=== PATIENT | male | born 1990 | race African-American/Black ===

== ENCOUNTER 2016-07-03 03:41 | Emergency (ER) | payer OTHER ==
[2016-07-03 04:01] VITALS: TEMP 98.5
--- NOTE | 2016-07-03 04:12 | ED ---
General Adult HPI - General Chief complaint: Nausea/Vomiting/Diarrhea Stated complaint: nausea,vomitting, abd pain Time Seen by Provider: 07/03/16 03:45 Source: patient, RN notes reviewed, old records reviewed Mode of arrival: wheelchair Limitations: no limitations - History of Present Illness Initial comments: This is a 25-year-old male here for evaluation of nausea and vomiting. Patient was a year with severe nausea vomiting and pain. Diffuse body pain. Not feeling well. Patient states he can't keep anything down at home, is status post recent hospital admission for similar symptoms. Patient has no known fevers. Is taking medication as prescribed. Patient states he does get pain medication while in hospital and is usually feeling well, when he goes home he is not on any pain medication and his symptoms seemed to get worse the father out from his hospitalization he becomes. Patient otherwise denies any specific symptoms, blood sugars been under well control, decreased appetite and hasn't kept anything down since yesterday. - Related Data Home Medications Medication Instructions Recorded Confirmed Insulin Aspart [NovoLOG] 8 unit SQ AC-TID 02/08/14 07/03/16 Insulin Glargine [Lantus] 42 unit SQ HS 06/06/15 07/03/16 buPROPion SR [Wellbutrin SR] 150 mg PO BID 06/18/15 07/03/16 Pantoprazole [Protonix] 40 mg PO AC-BRKFST 10/26/15 07/03/16 Losartan [Cozaar] 50 mg PO DAILY 05/04/16 07/03/16 Ondansetron Odt [Zofran ODT] 4 mg PO Q12HR PRN 05/04/16 07/03/16 amLODIPine [Norvasc] 5 mg PO DAILY 05/04/16 07/03/16 Insulin Aspart [NovoLOG] See Protocol SQ AC-TID PRN 05/28/16 07/03/16 Mag Hydrox/Al Hydrox/Simeth 30 ml PO DAILY PRN 06/28/16 07/03/16 [Maalox] Previous Rx's Medication Instructions Recorded Metoprolol Tartrate [Lopressor] 100 mg PO BID #60 tab 07/16/15 Calcium Carbonate [Tums] 1,000 mg PO TID PRN #0 chew 05/07/16 Hydrocodone/Acetaminophen [[place] 1 tab PO Q6HR PRN #20 tab 06/29/16 5-325] Allergies Allergy/AdvReac Type Severity Reaction Status Date / Time No Known Allergies Allergy Verified 06/03/16 00:53 Review of Systems ROS Statement: Those systems with pertinent positive or pertinent negative responses have been documented in the HPI. ROS Other: All systems not noted in ROS Statement are negative. Past Medical History Past Medical History: Diabetes Mellitus, GERD/Reflux, Hypertension, Renal Disease Additional Past Medical History / Comment(s): IDDM, GASTROPARESIS, gastritis, esophagitis, DKA episodes, hiatal hernia, as child had seizure r/t high fever, acute pancreatits(idiopathic) in july 2015, chronic kidney disease stage III , hyperkalemia, L leg neuropathy, unsure if he had angina or if chest pain is gastric, migraines. History of Any Multi-Drug Resistant Organisms: MRSA Date of last positivie culture/infection: MDRO Source:: CHIN/ Rt leg Past Surgical History: Cholecystectomy, Orthopedic Surgery, Tonsillectomy Additional Past Surgical History / Comment(s): LEFT ELBOW pinned, egd's w/ bx's last done 05-30-16. Past Anesthesia/Blood Transfusion Reactions: No Reported Reaction Past Psychological History: ADD/ADHD, Anxiety, Depression Additional Psychological History / Comment(s): Pt resides with his mother. He is independent. Smoking Status: Former smoker Past Alcohol Use History: None Reported Additional Past Alcohol Use History / Comment(s): Pt states he started smoking in 2006 and quit in 2011 Past Drug Use History: Marijuana Additional Drug Use History / Comment(s): Pt states he doesn't smoke cigarettees but has a "joint or two a week" - Past Family History Mother Family Medical History: Diabetes Mellitus Additional Family Medical History / Comment(s): heart problems-(pt not sure what they were) Father Family Medical History: Diabetes Mellitus General Exam Limitations: no limitations General appearance: alert, in no apparent distress, anxious Head exam: Present: atraumatic, normocephalic, normal inspection Eye exam: Present: normal appearance, PERRL, EOMI. Absent: scleral icterus, conjunctival injection, periorbital swelling ENT exam: Present: normal exam, mucous membranes moist Neck exam: Present: normal inspection. Absent: tenderness, meningismus, lymphadenopathy Respiratory exam: Present: normal lung sounds bilaterally. Absent: respiratory distress, wheezes, rales, rhonchi, stridor Cardiovascular Exam: Present: regular rate, normal rhythm, normal heart sounds. Absent: systolic murmur, diastolic murmur, rubs, gallop, clicks GI/Abdominal exam: Present: soft, normal bowel sounds. Absent: distended, tenderness, guarding, rebound, rigid Extremities exam: Present: normal inspection, full ROM, normal capillary refill. Absent: tenderness, pedal edema, joint swelling, calf tenderness Back exam: Present: normal inspection Neurological exam: Present: alert, oriented X3, CN II-XII intact Psychiatric exam: Present: normal affect, normal mood Skin exam: Present: warm, dry, intact, normal color. Absent: rash Course Vital Signs 07/03/16 03:57 Temperature 98.5 F Pulse Rate 106 H Respiratory 20 Rate Blood Pressure 183/94 O2 Sat by Pulse 100 Oximetry - Reevaluation(s) Reevaluation #1: 07/03/16 04:51 Patient's symptoms are much improved pain control, antiemetics emetics Reevaluation #2: 07/03/16 04:51 A consult with at length. 15 minutes regarding need for taking care of his issues at home. Medical Decision Making - Medical Decision Making 25 year with intractable nausea vomiting, aspect of opiate pain relief pain issues, withdrawal, 7 vomiting syndrome as well as gastroparesis. Patient will be discharged with appropriate pain medication to follow up as directed - Lab Data Lab Results 07/03/16 Range/Units 04:33 POC Glucose (mg/dL) 87 (75-99) mg/dL POC Glu Research Microbiologist ID [email or web address] [email or web address] Disposition Clinical Impression: Nausea and vomiting, Nausea and vomiting in adult, Opioid withdrawal Disposition: HOME SELF-CARE Condition: Good Instructions: Acute Nausea and Vomiting (ED) Referrals: Myron Bailey DO [Primary Care Provider] - 1-2 days
[2016-07-03 04:36] LABS: Glucose,Whole Blood 87 mg/dL (75-99)
[2016-07-03] MEDS ORDERED: TRIMETHOBENZAMIDE 100 MG/ML 2 ML VIAL IM STA (04:37)
[2016-07-03] MEDS ORDERED: ONDANSETRON ODT 4 MG TAB PO STA (04:37)
[2016-07-03] MEDS ORDERED: HYDROmorphone 2 MG/ML 1 ML SYRINGE IM STA (04:37)
[2016-07-03] MEDS ORDERED: DIAZEPAM 5 MG TAB PO STA (04:38)
[2016-07-03] MEDS ORDERED: diphenhydrAMINE ELIXIR 25 MG/10 ML CUP PO STA (04:38)
[2016-07-03] MEDS ORDERED: METOCLOPRAMIDE 10 MG TAB PO STA (05:15)
[2016-07-03 05:40] VITALS: PULSE 95; RESP 16
[2016-07-03 05:48] VITALS: BP 156/76
== END 2016-07-03 06:05 | disposition home or self-care (01) ==
LOC: EC 03:41
DX: R11.2 Nausea with vomiting, unspecified (principal); F11.23 Opioid dependence with withdrawal; E11.43 Type 2 diabetes mellitus with diabetic autonomic (poly)neuropathy; E11.22 Type 2 diabetes mellitus with diabetic chronic kidney disease; K31.84 Gastroparesis; K21.9 Gastro-esophageal reflux disease without esophagitis; I12.9 Hypertensive chronic kidney disease with stage 1 through stage 4 chronic kidney disease, or unspecified chronic kidney disease; N18.3 Chronic kidney disease, stage 3 (moderate); E11.40 Type 2 diabetes mellitus with diabetic neuropathy, unspecified; F32.9 Major depressive disorder, single episode, unspecified; Z79.4 Long term (current) use of insulin; Z87.891 Personal history of nicotine dependence; Z79.899 Other long term (current) drug therapy; R52 Pain, unspecified; R19.7 Diarrhea, unspecified
CPT/HCPCS: 96372 ×2; 99284; 36415; J1170; J3250

== ENCOUNTER 2016-07-04 00:48 | Emergency (ER) | payer OTHER ==
[2016-07-04 00:57] VITALS: RESP 20
--- NOTE | 2016-07-04 01:14 | ED ---
Abdominal Pain HPI - General Chief Complaint: Abdominal Pain Stated Complaint: N/V/D/Back/Abdominal Pain Time Seen by Provider: 07/04/16 01:09 Source: patient, RN notes reviewed Mode of arrival: wheelchair Limitations: no limitations - History of Present Illness Initial Comments: Patient is a 25-year-old visiting to the with similar symptoms including abdominal, lower back pain for the past 2 days. Patient was seen in the emergency room yesterday for the exact same symptoms. Patient was given a prescription for Reglan and Accord he states that he vomited. Patient reports that he has also been admitted recently for similar symptoms, reports that his pain gets better with opiate medication. Patient reports that his blood sugars have remained remaining well. He states he's been trying to remain hydrated. He's had normal urination normal bowel movements. - Related Data Home Medications Medication Instructions Recorded Confirmed Insulin Aspart [NovoLOG] 8 unit SQ AC-TID 02/08/14 07/04/16 Insulin Glargine [Lantus] 42 unit SQ HS 06/06/15 07/04/16 buPROPion SR [Wellbutrin SR] 150 mg PO BID 06/18/15 07/04/16 Pantoprazole [Protonix] 40 mg PO AC-BRKFST 10/26/15 07/04/16 Losartan [Cozaar] 50 mg PO DAILY 05/04/16 07/04/16 Ondansetron Odt [Zofran ODT] 4 mg PO Q12HR PRN 05/04/16 07/04/16 amLODIPine [Norvasc] 5 mg PO DAILY 05/04/16 07/04/16 Insulin Aspart [NovoLOG] See Protocol SQ AC-TID PRN 05/28/16 07/04/16 Mag Hydrox/Al Hydrox/Simeth 30 ml PO DAILY PRN 06/28/16 07/04/16 [Maalox] Previous Rx's Medication Instructions Recorded Metoprolol Tartrate [Lopressor] 100 mg PO BID #60 tab 07/16/15 Calcium Carbonate [Tums] 1,000 mg PO TID PRN #0 chew 05/07/16 Hydrocodone/Acetaminophen [[place] 1 tab PO Q6HR PRN #20 tab 06/29/16 5-325] Hydrocodone/Acetaminophen [[place] 1 tab PO Q4H PRN #30 tab 07/03/16 10-325] Metoclopramide HCl [Reglan] 5 mg PO BID #30 tablet 07/03/16 Allergies Allergy/AdvReac Type Severity Reaction Status Date / Time No Known Allergies Allergy Verified 07/04/16 00:57 Review of Systems ROS Statement: Those systems with pertinent positive or pertinent negative responses have been documented in the HPI. ROS Other: All systems not noted in ROS Statement are negative. Past Medical History Past Medical History: Diabetes Mellitus, GERD/Reflux, Hypertension, Renal Disease Additional Past Medical History / Comment(s): IDDM, GASTROPARESIS, gastritis, esophagitis, DKA episodes, hiatal hernia, as child had seizure r/t high fever, acute pancreatits(idiopathic) in july 2015, chronic kidney disease stage III , hyperkalemia, L leg neuropathy, unsure if he had angina or if chest pain is gastric, migraines. History of Any Multi-Drug Resistant Organisms: MRSA Date of last positivie culture/infection: MDRO Source:: CHIN/ Rt leg Past Surgical History: Cholecystectomy, Orthopedic Surgery, Tonsillectomy Additional Past Surgical History / Comment(s): LEFT ELBOW pinned, egd's w/ bx's last done 05-30-16. Past Anesthesia/Blood Transfusion Reactions: No Reported Reaction Past Psychological History: ADD/ADHD, Anxiety, Depression Additional Psychological History / Comment(s): Pt resides with his mother. He is independent. Smoking Status: Former smoker Past Alcohol Use History: None Reported Additional Past Alcohol Use History / Comment(s): Pt states he started smoking in 2006 and quit in 2011 Past Drug Use History: Marijuana Additional Drug Use History / Comment(s): Pt states he doesn't smoke cigarettees but has a "joint or two a week" - Past Family History Mother Family Medical History: Diabetes Mellitus Additional Family Medical History / Comment(s): heart problems-(pt not sure what they were) Father Family Medical History: Diabetes Mellitus General Exam - General Exam Comments Initial Comments: Patient is a obese 25-year-old male. He does not appear to be in any acute distress at this time. Limitations: no limitations General appearance: alert, in no apparent distress Head exam: Present: atraumatic, normocephalic, normal inspection Eye exam: Present: normal appearance, PERRL, EOMI. Absent: scleral icterus, conjunctival injection, periorbital swelling ENT exam: Present: normal exam, mucous membranes moist Neck exam: Present: normal inspection. Absent: tenderness, meningismus, lymphadenopathy Respiratory exam: Present: normal lung sounds bilaterally. Absent: respiratory distress, wheezes, rales, rhonchi, stridor Cardiovascular Exam: Present: regular rate, normal rhythm, normal heart sounds. Absent: systolic murmur, diastolic murmur, rubs, gallop, clicks GI/Abdominal exam: Present: soft, normal bowel sounds. Absent: distended, tenderness, guarding, rebound, rigid Extremities exam: Present: normal inspection, full ROM, normal capillary refill. Absent: tenderness, pedal edema, joint swelling, calf tenderness Back exam: Present: normal inspection Neurological exam: Present: alert, oriented X3, CN II-XII intact Psychiatric exam: Present: normal affect, normal mood Skin exam: Present: warm, dry, intact, normal color. Absent: rash Course Vital Signs 07/04/16 00:55 Temperature 98.4 F Pulse Rate 104 H Respiratory 20 Rate Blood Pressure 148/91 O2 Sat by Pulse 97 Oximetry Medical Decision Making - Medical Decision Making Patient reports that he does not want to be admitted at this time. Patient plans to go home and take at home pain medication and nausea medication. - Lab Data Result diagrams: 07/04/16 00:20 07/04/16 00:20 Lab Results 07/04/16 07/04/16 07/04/16 Range/Units 00:20 00:20 00:20 WBC 7.5 (3.8-10.6) k/uL RBC 4.14 L (4.30-5.90) m/uL Hgb 11.4 L (13.0-17.5) gm/dL Hct 36.1 L (39.0-53.0) % MCV 87.1 (80.0-100.0) fL MCH 27.5 (25.0-35.0) pg MCHC 31.6 (31.0-37.0) g/dL RDW 13.0 (11.5-15.5) % Plt Count 246 (150-450) k/uL Neutrophils % 68 % Lymphocytes % 21 % Monocytes % 9 % Eosinophils % 1 % Basophils % 1 % Neutrophils # 5.1 (1.3-7.7) k/uL Lymphocytes # 1.5 (1.0-4.8) k/uL Monocytes # 0.6 (0-1.0) k/uL Eosinophils # 0.1 (0-0.7) k/uL Basophils # 0.0 (0-0.2) k/uL Sodium 136 L (137-145) mmol/L Potassium 3.2 L (3.5-5.1) mmol/L Chloride 90 L (98-107) mmol/L Carbon Dioxide 38 H (22-30) mmol/L Anion Gap 8 mmol/L BUN 23 H (9-20) mg/dL Creatinine 2.60 H (0.66-1.25) mg/dL Est GFR (MDRD) Af Amer 37 (>60 ml/min/1.73 sqM) Est GFR (MDRD) Non-Af 30 (>60 ml/min/1.73 sqM) Glucose 252 H (74-99) mg/dL Calcium 7.9 L (8.4-10.2) mg/dL Total Bilirubin 0.9 (0.2-1.3) mg/dL AST 45 (17-59) U/L ALT 48 (21-72) U/L Alkaline Phosphatase 122 (38-126) U/L Total Protein 5.4 L (6.3-8.2) g/dL Albumin 2.7 L (3.5-5.0) g/dL Amylase 97 (30-110) U/L Lipase 215 (23-300) U/L Urine Color Urine Appearance (Clear) Urine pH (5.0-8.0) Ur Specific [place] (1.001-1.035) Urine Protein (Negative) Urine Glucose (UA) (Negative) Urine Ketones (Negative) Urine Blood (Negative) Urine Nitrate (Negative) Urine Bilirubin (Negative) Urine Urobilinogen (<2.0) mg/dL Ur Leukocyte Esterase (Negative) Urine RBC (0-5) /hpf Urine WBC (0-5) /hpf Ur Squamous Epith Cells (0-4) /hpf Urine Bacteria (None) /hpf Cellular Casts (0) /lpf Hyaline Casts (0-2) /lpf Granular Casts (0) /lpf Urine Mucus (None) /hpf Acetone, Qual Negative (Negative) 01/04/17 Range/Units 02:35 WBC (3.8-10.6) k/uL RBC (4.30-5.90) m/uL Hgb (13.0-17.5) gm/dL Hct (39.0-53.0) % MCV (80.0-100.0) fL MCH (25.0-35.0) pg MCHC (31.0-37.0) g/dL RDW (11.5-15.5) % Plt Count (150-450) k/uL Neutrophils % % Lymphocytes % % Monocytes % % Eosinophils % % Basophils % % Neutrophils # (1.3-7.7) k/uL Lymphocytes # (1.0-4.8) k/uL Monocytes # (0-1.0) k/uL Eosinophils # (0-0.7) k/uL Basophils # (0-0.2) k/uL Sodium (137-145) mmol/L Potassium (3.5-5.1) mmol/L Chloride (98-107) mmol/L Carbon Dioxide (22-30) mmol/L Anion Gap mmol/L BUN (9-20) mg/dL Creatinine (0.66-1.25) mg/dL Est GFR (MDRD) Af Amer (>60 ml/min/1.73 sqM) Est GFR (MDRD) Non-Af (>60 ml/min/1.73 sqM) Glucose (74-99) mg/dL Calcium (8.4-10.2) mg/dL Total Bilirubin (0.2-1.3) mg/dL AST (17-59) U/L ALT (21-72) U/L Alkaline Phosphatase (38-126) U/L Total Protein (6.3-8.2) g/dL Albumin (3.5-5.0) g/dL Amylase (30-110) U/L Lipase (23-300) U/L Urine Color Light Yellow Urine Appearance Cloudy (Clear) Urine pH 8.5 H (5.0-8.0) Ur Specific [place] 1.009 (1.001-1.035) Urine Protein 4+ H (Negative) Urine Glucose (UA) 3+ H (Negative) Urine Ketones Negative (Negative) Urine Blood Trace H (Negative) Urine Nitrate Negative (Negative) Urine Bilirubin Negative (Negative) Urine Urobilinogen <2.0 (<2.0) mg/dL Ur Leukocyte Esterase Trace H (Negative) Urine RBC 6 H (0-5) /hpf Urine WBC 27 H (0-5) /hpf Ur Squamous Epith Cells 2 (0-4) /hpf Urine Bacteria Rare H (None) /hpf Cellular Casts 1 (0) /lpf Hyaline Casts 8 H (0-2) /lpf Granular Casts 1 (0) /lpf Urine Mucus Rare H (None) /hpf Acetone, Qual (Negative) Disposition Clinical Impression: Abdominal pain, Dehydration Disposition: HOME SELF-CARE Condition: Good Instructions: Abdominal Pain (ED) Additional Instructions: instructed to follow-up with primary care provider. Return to the [facility] if any alarming signs or symptoms occur. Take at home pain medication and nausea medication. Time of Disposition: 03:04
[2016-07-04] MEDS ORDERED: KETOROLAC 30 MG/ML 1 ML VIAL IVP STA (01:22)
[2016-07-04] MEDS ORDERED: ONDANSETRON 4 MG/2 ML VIAL IVP STA (01:22)
[2016-07-04] MEDS ORDERED: SODIUM CHLORIDE 0.9% 1,000 ML IV STA (01:22)
[2016-07-04 02:01] LABS: Basophils % (A) 1 %; CH 28.4; CHCM 32.8; Eosinophils # (A) 0.1 k/uL (0-0.7); Eosinophils % (A) 1 %; HCT 36.1 % (39.0-53.0); HDW 2.31; HGB 11.4 gm/dL (13.0-17.5); Luc # (Auto) 0.11; Luc % (Auto) 2; Lymphocytes # (A) 1.5 k/uL (1.0-4.8); Lymphocytes % (A) 21 %; MCH 27.5 pg (25.0-35.0); MCHC 31.6 g/dL (31.0-37.0); MCV 87.1 fL (80.0-100.0); Monocytes # (A) 0.6 k/uL (0-1.0); Monocytes % (A) 9 %; Neutrophils # (A) 5.1 k/uL (1.3-7.7); Neutrophils % (A) 68 %; RBC 4.14 m/uL (4.30-5.90); WBC 7.5 k/uL (3.8-10.6); WBC (Perox) 7.69
[2016-07-04 02:16] LABS: Potassium 3.2 mmol/L (3.5-5.1); Total Protein 5.4 g/dL (6.3-8.2)
[2016-07-04 02:19] LABS: Calcium 7.9 mg/dL (8.4-10.2); Total Bilirubin 0.9 mg/dL (0.2-1.3)
[2016-07-04 02:53] LABS: Appearance,Urine Cloudy (Clear); Bacteria,Urine Rare /hpf; Bilirubin,Urine Negative (Negative); Glucose,Urine (UA) 3+ (Negative); Granular Casts,Urine 1 /lpf (0); Ketones,Urine Negative (Negative); Leukocyte Esterase,Urine Trace (Negative); Mucus,Urine Rare /hpf; Nitrite,Urine Negative (Negative); PH, Urine 8.5 (5.0-8.0); Particle Count 4475; Protein,Urine 4+ (Negative); RBC,Urine 6 /hpf (0-5); Specific Gravity,Urine 1.009 (1.001-1.035); Squamous Epithelial Cell,Urine 2 /hpf (0-4); UA Billing (MACRO vs. MICRO) MICRO; Urobilinogen,Urine <2.0 mg/dL (<2.0); WBC,Urine 27 /hpf (0-5)
[2016-07-04] MEDS ORDERED: POTASSIUM CHLORIDE ER 20 MEQ TAB.ER PO STA (03:01)
[2016-07-04] MEDS ORDERED: INSULIN REGULAR 100 UNIT/ML VIAL SQ ONE (03:02)
--- NOTE | 2016-07-04 03:11 | XR ---
EXAMINATION TYPE: XR KUB DATE OF EXAM: 07/04/2016 2:01 AM CLINICAL HISTORY: Nausea vomiting and diarrhea and abdominal pain TECHNIQUE: Single supine KUB image of the abdomen is obtained. COMPARISON: June 28, 2016 FINDINGS: Mild gaseous distention of small bowel loops is noted with few air-fluid levels with sugges tion of mild ileus. No significant bowel obstruction is noted. There is no visceromegaly, pneumoperit oneum, or abnormal calcification appreciated. The lung bases are clear and the osseous structures a re intact. Cholecystectomy clips are noted in the right upper abdomen. IMPRESSION: Suggestion of mild ileus or enteritis changes. No significant bowel obstruction is noted. There is moderate improvement since previous study.
[2016-07-04 03:21] VITALS: BP 178/90; PULSE 100; TEMP 97.8
== END 2016-07-04 03:19 | disposition home or self-care (01) ==
LOC: EC 00:48
DX: R10.9 Unspecified abdominal pain (principal); E86.0 Dehydration; K21.9 Gastro-esophageal reflux disease without esophagitis; I10 Essential (primary) hypertension; E11.9 Type 2 diabetes mellitus without complications; E87.5 Hyperkalemia; F32.9 Major depressive disorder, single episode, unspecified; Z87.891 Personal history of nicotine dependence; Z79.899 Other long term (current) drug therapy; Z79.4 Long term (current) use of insulin
CPT/HCPCS: 99284 ×2; 96374 ×2; 96375 ×2; 96361 ×2; 36415; 80053; 82150; 82009; 83690; 85025; 81001; 87491; 87591; 87086; 74000; J1200; J2765; J2405; J1885; J1170

== ENCOUNTER 2016-07-04 08:19 | Emergency (ER) | payer OTHER ==
[2016-07-04 08:27] VITALS: RESP 18
[2016-07-04] MEDS ORDERED: METOCLOPRAMIDE 5 MG/ML 2 ML VIAL IVP STA (08:33)
[2016-07-04] MEDS ORDERED: HYDROmorphone 1 MG/ML 1 ML SYRINGE IVP STA (08:33)
[2016-07-04] MEDS ORDERED: diphenhydrAMINE 50 MG/ML 1 ML VIAL IVP STA (08:33)
[2016-07-04] MEDS ORDERED: SODIUM CHLORIDE 0.9% 1,000 ML IV STA (08:33)
[2016-07-04] MEDS ORDERED: LABETALOL SYRINGE 5 MG/ML IVP STA (08:35)
[2016-07-04 09:12] LABS: Basophils % (A) 0 %; CHCM 32.5; Eosinophils # (A) 0.1 k/uL (0-0.7); Eosinophils % (A) 1 %; HCT 36.5 % (39.0-53.0); HDW 2.37; HGB 11.8 gm/dL (13.0-17.5); Luc # (Auto) 0.17; Luc % (Auto) 2; Lymphocytes % (A) 25 %; MCH 27.9 pg (25.0-35.0); MCHC 32.2 g/dL (31.0-37.0); MCV 86.4 fL (80.0-100.0); Monocytes # (A) 0.7 k/uL (0-1.0); Monocytes % (A) 9 %; Neutrophils % (A) 62 %; RBC 4.22 m/uL (4.30-5.90); RDW 12.7 % (11.5-15.5); WBC 8.1 k/uL (3.8-10.6); WBC (Perox) 8.56
[2016-07-04 09:30] LABS: ALT 52 U/L (21-72); AST 51 U/L (17-59); Alkaline Phosphatase 118 U/L (38-126); Amylase 91 U/L (30-110); Anion Gap 11 mmol/L; Blood Urea Nitrogen 23 mg/dL (9-20); Calcium 7.7 mg/dL (8.4-10.2); Carbon Dioxide 32 mmol/L (22-30); Chloride 95 mmol/L (98-107); Glucose 143 mg/dL (74-99); Non-African American GFR(MDRD) 33 (>60 ml/min/1.73 sqM); Sodium 138 mmol/L (137-145)
[2016-07-04 09:32] LABS: Potassium 3.3 mmol/L (3.5-5.1)
--- NOTE | 2016-07-04 10:08 | ED ---
Abdominal Pain HPI - General Chief Complaint: Abdominal Pain Stated Complaint: Abd pain/back pain Time Seen by Provider: 07/04/16 08:31 Source: patient, RN notes reviewed Mode of arrival: ambulatory Limitations: no limitations - History of Present Illness Initial Comments: 25-year-old male presents emergency department for abdominal pain. Patient has chronic abdominal pain, gastroparesis. Patient was seen here last night states that symptoms get worse when he went home. Patient states she had a few episodes of vomiting. Patient states is his typical discomfort and vomiting that he has. Patient denies fever, chills. Patient states his hasn't diffuse abdominal pain and back pain. - Related Data Home Medications Medication Instructions Recorded Confirmed Insulin Aspart [NovoLOG] 8 unit SQ AC-TID 02/08/14 07/04/16 Insulin Glargine [Lantus] 42 unit SQ HS 06/06/15 07/04/16 buPROPion SR [Wellbutrin SR] 150 mg PO BID 06/18/15 07/04/16 Pantoprazole [Protonix] 40 mg PO AC-BRKFST 10/26/15 07/04/16 Losartan [Cozaar] 50 mg PO DAILY 05/04/16 07/04/16 Ondansetron Odt [Zofran ODT] 4 mg PO Q12HR PRN 05/04/16 07/04/16 amLODIPine [Norvasc] 5 mg PO DAILY 05/04/16 07/04/16 Insulin Aspart [NovoLOG] See Protocol SQ AC-TID PRN 05/28/16 07/04/16 Mag Hydrox/Al Hydrox/Simeth 30 ml PO DAILY PRN 06/28/16 07/04/16 [Maalox] Previous Rx's Medication Instructions Recorded Metoprolol Tartrate [Lopressor] 100 mg PO BID #60 tab 07/16/15 Calcium Carbonate [Tums] 1,000 mg PO TID PRN #0 chew 05/07/16 Hydrocodone/Acetaminophen [[place] 1 tab PO Q4H PRN #30 tab 07/03/16 10-325] Metoclopramide HCl [Reglan] 5 mg PO BID #30 tablet 07/03/16 Allergies Allergy/AdvReac Type Severity Reaction Status Date / Time No Known Allergies Allergy Verified 07/04/16 09:03 Review of Systems ROS Statement: Those systems with pertinent positive or pertinent negative responses have been documented in the HPI. ROS Other: All systems not noted in ROS Statement are negative. Past Medical History Past Medical History: Diabetes Mellitus, GERD/Reflux, Hypertension, Renal Disease Additional Past Medical History / Comment(s): IDDM, GASTROPARESIS, gastritis, esophagitis, DKA episodes, hiatal hernia, as child had seizure r/t high fever, acute pancreatits(idiopathic) in july 2015, chronic kidney disease stage III , hyperkalemia, L leg neuropathy, unsure if he had angina or if chest pain is gastric, migraines. History of Any Multi-Drug Resistant Organisms: MRSA Date of last positivie culture/infection: MDRO Source:: CHIN/ Rt leg Past Surgical History: Cholecystectomy, Orthopedic Surgery, Tonsillectomy Additional Past Surgical History / Comment(s): LEFT ELBOW pinned, egd's w/ bx's last done 05-30-16. Past Anesthesia/Blood Transfusion Reactions: No Reported Reaction Past Psychological History: ADD/ADHD, Anxiety, Depression Additional Psychological History / Comment(s): Pt resides with his mother. He is independent. Smoking Status: Former smoker Past Alcohol Use History: None Reported Additional Past Alcohol Use History / Comment(s): Pt states he started smoking in 2006 and quit in 2011 Past Drug Use History: Marijuana Additional Drug Use History / Comment(s): Pt states he doesn't smoke cigarettees but has a "joint or two a week" - Past Family History Mother Family Medical History: Diabetes Mellitus Additional Family Medical History / Comment(s): heart problems-(pt not sure what they were) Father Family Medical History: Diabetes Mellitus General Exam Limitations: no limitations General appearance: alert, in no apparent distress Head exam: Present: atraumatic, normocephalic, normal inspection Neck exam: Present: normal inspection. Absent: tenderness, meningismus, lymphadenopathy Respiratory exam: Present: normal lung sounds bilaterally. Absent: respiratory distress, wheezes, rales, rhonchi, stridor Cardiovascular Exam: Present: normal rhythm, tachycardia, normal heart sounds. Absent: systolic murmur, diastolic murmur, rubs, gallop, clicks GI/Abdominal exam: Present: soft, tenderness (Moderate diffuse), normal bowel sounds. Absent: distended, guarding, rebound, rigid Back exam: Absent: CVA tenderness (R), CVA tenderness (L) Skin exam: Present: warm, dry, intact, normal color. Absent: rash Course Vital Signs 07/04/16 07/04/16 07/04/16 08:24 09:06 10:03 Temperature 98.3 F Pulse Rate 111 H Respiratory 18 Rate Blood Pressure 221/112 206/109 178/85 O2 Sat by Pulse 97 97 Oximetry Medical Decision Making - Medical Decision Making 25-year-old male present emergency department for nausea vomiting no pain. Patient's lab work is improved from previous lab work. Patient was informed that his potassium was low but he declined potassium. Patient we given additional antinausea medication prior discharge. Return parameters were discussed. - Lab Data Result diagrams: 07/04/16 08:50 07/04/16 08:50 Lab Results 07/04/16 07/04/16 Range/Units 08:50 08:50 WBC 8.1 (3.8-10.6) k/uL RBC 4.22 L (4.30-5.90) m/uL Hgb 11.8 L (13.0-17.5) gm/dL Hct 36.5 L (39.0-53.0) % MCV 86.4 (80.0-100.0) fL MCH 27.9 (25.0-35.0) pg MCHC 32.2 (31.0-37.0) g/dL RDW 12.7 (11.5-15.5) % Plt Count 253 (150-450) k/uL Neutrophils % 62 % Lymphocytes % 25 % Monocytes % 9 % Eosinophils % 1 % Basophils % 0 % Neutrophils # 5.0 (1.3-7.7) k/uL Lymphocytes # 2.0 (1.0-4.8) k/uL Monocytes # 0.7 (0-1.0) k/uL Eosinophils # 0.1 (0-0.7) k/uL Basophils # 0.0 (0-0.2) k/uL Sodium 138 (137-145) mmol/L Potassium 3.3 L (3.5-5.1) mmol/L Chloride 95 L (98-107) mmol/L Carbon Dioxide 32 H (22-30) mmol/L Anion Gap 11 mmol/L BUN 23 H (9-20) mg/dL Creatinine 2.39 H (0.66-1.25) mg/dL Est GFR (MDRD) Af Amer 40 (>60 ml/min/1.73 sqM) Est GFR (MDRD) Non-Af 33 (>60 ml/min/1.73 sqM) Glucose 143 H (74-99) mg/dL Calcium 7.7 L (8.4-10.2) mg/dL Total Bilirubin 1.0 (0.2-1.3) mg/dL AST 51 (17-59) U/L ALT 52 (21-72) U/L Alkaline Phosphatase 118 (38-126) U/L Total Protein 6.0 L (6.3-8.2) g/dL Albumin 2.9 L (3.5-5.0) g/dL Amylase 91 (30-110) U/L Lipase 178 (23-300) U/L Acetone, Qual Negative (Negative) Disposition Clinical Impression: Nausea and vomiting, Abdominal pain, Gastroparesis Disposition: HOME SELF-CARE Condition: Stable Instructions: Abdominal Pain (ED) Additional Instructions: Please return to the Emergency Department if symptoms worsen or any other concerns. Time of Disposition: 10:11
[2016-07-04] MEDS ORDERED: ONDANSETRON 4 MG/2 ML VIAL IVP STA (10:10)
[2016-07-04 10:19] VITALS: BP 187/68; PULSE 90; TEMP 98.2
[2016-07-04 11:56] LABS: Glucose,Whole Blood 123 mg/dL (75-99)
== END 2016-07-04 10:22 | disposition home or self-care (01) ==
LOC: EC 08:19
DX: E11.43 Type 2 diabetes mellitus with diabetic autonomic (poly)neuropathy (principal); K31.84 Gastroparesis; F32.9 Major depressive disorder, single episode, unspecified; K21.9 Gastro-esophageal reflux disease without esophagitis; E11.22 Type 2 diabetes mellitus with diabetic chronic kidney disease; I12.9 Hypertensive chronic kidney disease with stage 1 through stage 4 chronic kidney disease, or unspecified chronic kidney disease; N18.3 Chronic kidney disease, stage 3 (moderate); E11.40 Type 2 diabetes mellitus with diabetic neuropathy, unspecified; Z87.891 Personal history of nicotine dependence; Z79.899 Other long term (current) drug therapy; Z79.4 Long term (current) use of insulin
CPT/HCPCS: 96374; 96375 ×4; 99284; 36415; 80053; 82150; 82009; 83690; 85025; J1200; J2765; J2405; J1170

== ENCOUNTER 2016-07-05 01:44 | Emergency (ER) | payer OTHER ==
[2016-07-05 01:55] VITALS: RESP 20
--- NOTE | 2016-07-05 02:16 | ED ---
Abdominal Pain HPI - General Chief Complaint: Abdominal Pain Stated Complaint: Abdominal Pain/Vomiting Time Seen by Provider: 07/05/16 02:05 Source: patient, RN notes reviewed Mode of arrival: wheelchair Limitations: no limitations - History of Present Illness Initial Comments: Patient is 25-year-old male well-known to the emergency room for evaluation of abdominal pain, nausea, vomiting. Patient was here earlier today with the same symptoms. Patient states symptoms have not subsided. Patient states he is having worsening abdominal pain. Patient states he feels like he's having a panic attack. - Related Data Home Medications Medication Instructions Recorded Confirmed Insulin Aspart [NovoLOG] 8 unit SQ AC-TID 02/08/14 07/05/16 Insulin Glargine [Lantus] 42 unit SQ HS 06/06/15 07/05/16 buPROPion SR [Wellbutrin SR] 150 mg PO BID 06/18/15 07/05/16 Pantoprazole [Protonix] 40 mg PO AC-BRKFST 10/26/15 07/05/16 Losartan [Cozaar] 50 mg PO DAILY 05/04/16 07/05/16 Ondansetron Odt [Zofran ODT] 4 mg PO Q12HR PRN 05/04/16 07/05/16 amLODIPine [Norvasc] 5 mg PO DAILY 05/04/16 07/05/16 Insulin Aspart [NovoLOG] See Protocol SQ AC-TID PRN 05/28/16 07/05/16 Mag Hydrox/Al Hydrox/Simeth 30 ml PO DAILY PRN 06/28/16 07/05/16 [Maalox] Previous Rx's Medication Instructions Recorded Metoprolol Tartrate [Lopressor] 100 mg PO BID #60 tab 07/16/15 Calcium Carbonate [Tums] 1,000 mg PO TID PRN #0 chew 05/07/16 Hydrocodone/Acetaminophen [[place] 1 tab PO Q4H PRN #30 tab 07/03/16 10-325] Metoclopramide HCl [Reglan] 5 mg PO BID #30 tablet 07/03/16 Allergies Allergy/AdvReac Type Severity Reaction Status Date / Time No Known Allergies Allergy Verified 07/05/16 01:55 Review of Systems ROS Statement: Those systems with pertinent positive or pertinent negative responses have been documented in the HPI. ROS Other: All systems not noted in ROS Statement are negative. Past Medical History Past Medical History: Diabetes Mellitus, GERD/Reflux, Hypertension, Renal Disease Additional Past Medical History / Comment(s): IDDM, GASTROPARESIS, gastritis, esophagitis, DKA episodes, hiatal hernia, as child had seizure r/t high fever, acute pancreatits(idiopathic) in july 2015, chronic kidney disease stage III , hyperkalemia, L leg neuropathy, unsure if he had angina or if chest pain is gastric, migraines. History of Any Multi-Drug Resistant Organisms: MRSA Date of last positivie culture/infection: MDRO Source:: CHIN/ Rt leg Past Surgical History: Cholecystectomy, Orthopedic Surgery, Tonsillectomy Additional Past Surgical History / Comment(s): LEFT ELBOW pinned, egd's w/ bx's last done 05-30-16. Past Anesthesia/Blood Transfusion Reactions: No Reported Reaction Past Psychological History: ADD/ADHD, Anxiety, Depression Additional Psychological History / Comment(s): Pt resides with his mother. He is independent. Smoking Status: Former smoker Past Alcohol Use History: None Reported Additional Past Alcohol Use History / Comment(s): Pt states he started smoking in 2006 and quit in 2011 Past Drug Use History: Marijuana Additional Drug Use History / Comment(s): Pt states he doesn't smoke cigarettees but has a "joint or two a week" - Past Family History Mother Family Medical History: Diabetes Mellitus Additional Family Medical History / Comment(s): heart problems-(pt not sure what they were) Father Family Medical History: Diabetes Mellitus General Exam Limitations: no limitations General appearance: alert Head exam: Present: atraumatic, normocephalic, normal inspection Eye exam: Present: normal appearance ENT exam: Present: normal exam Neck exam: Present: normal inspection Respiratory exam: Present: normal lung sounds bilaterally. Absent: respiratory distress GI/Abdominal exam: Present: soft. Absent: distended Extremities exam: Present: normal inspection Back exam: Present: normal inspection Neurological exam: Present: alert, oriented X3, CN II-XII intact, normal gait Psychiatric exam: Present: normal affect, normal mood Skin exam: Present: warm, dry, intact, normal color. Absent: rash Course Vital Signs 07/05/16 07/05/16 01:50 03:57 Temperature 99.0 F 97.6 F Pulse Rate 125 H 112 H Respiratory 20 20 Rate Blood Pressure 187/99 192/98 O2 Sat by Pulse 100 98 Oximetry Medical Decision Making - Medical Decision Making Patient is a 25-year-old male presents emergency room for evaluation of abdominal pain and nausea and vomiting. Patient given Ativan and pain relief while he was here. Labs from earlier today shows no significant findings. Patient's Accu-Chek on arrival was 41. Patient was given orange juice and repeat Accu-Check was 66. Patient advised to follow-up with his primary care provider. Return parameters discussed. Case discussed with Dr. Yeh. - Lab Data Lab Results 07/05/16 07/05/16 Range/Units 02:11 03:08 POC Glucose (mg/dL) 41 L 66 L (75-99) mg/dL POC Glu Restoration Officer ID Sarah Martins A Kulman, Matthew Disposition Clinical Impression: Hypoglycemia, Abdominal pain Disposition: HOME SELF-CARE Condition: Good Instructions: Hypoglycemia in a Person with Diabetes (ED) Additional Instructions: Please follow up with primary care provider in 24-48 hours for reevaluation. If any new symptom arises, symptoms worsen or fever develops, return to ER as soon as possible. Referrals: Myron Bailey DO [Primary Care Provider] - 1-2 days Time of Disposition: 03:34
[2016-07-05] MEDS ORDERED: LORazepam 1 MG TAB PO STA (02:17)
[2016-07-05 02:24] LABS: Glucose,Whole Blood 41 mg/dL (75-99)
[2016-07-05 03:09] LABS: Glucose,Whole Blood 66 mg/dL (75-99)
[2016-07-05] MEDS ORDERED: HYDROmorphone 1 MG/ML 1 ML SYRINGE IM STA (03:35)
[2016-07-05 03:58] VITALS: BP 192/98; PULSE 112; TEMP 97.6
== END 2016-07-05 04:17 | disposition home or self-care (01) ==
LOC: EC 01:44
DX: E11.649 Type 2 diabetes mellitus with hypoglycemia without coma (principal); K21.9 Gastro-esophageal reflux disease without esophagitis; E11.22 Type 2 diabetes mellitus with diabetic chronic kidney disease; I12.9 Hypertensive chronic kidney disease with stage 1 through stage 4 chronic kidney disease, or unspecified chronic kidney disease; N18.3 Chronic kidney disease, stage 3 (moderate); F32.9 Major depressive disorder, single episode, unspecified; G62.9 Polyneuropathy, unspecified; F90.9 Attention-deficit hyperactivity disorder, unspecified type; Z79.4 Long term (current) use of insulin; Z87.891 Personal history of nicotine dependence; Z79.899 Other long term (current) drug therapy
CPT/HCPCS: 99284; 96372; 36415; J1170

== ENCOUNTER 2016-07-06 17:52 | Inpatient (IN) | payer OTHER ==
[2016-07-06] MEDS ORDERED: HYDROmorphone 1 MG/ML 1 ML SYRINGE IVP STA (19:27)
[2016-07-06] MEDS ORDERED: SODIUM CHLORIDE 0.9% 1,000 ML IV STA (19:27)
[2016-07-06] MEDS ORDERED: PANTOPRAZOLE 40 MG/10 ML VIAL IVP STA (19:27)
[2016-07-06] MEDS ORDERED: METOCLOPRAMIDE 5 MG/ML 2 ML VIAL IVP STA (19:27)
[2016-07-06 20:18] LABS: Basophils % (A) 0 %; CH 27.9; CHCM 31.8; Eosinophils # (A) 0.1 k/uL (0-0.7); Eosinophils % (A) 1 %; HCT 42.7 % (39.0-53.0); HDW 2.42; HGB 13.4 gm/dL (13.0-17.5); Luc # (Auto) 0.11; Luc % (Auto) 1; Lymphocytes # (A) 1.9 k/uL (1.0-4.8); Lymphocytes % (A) 23 %; MCH 27.7 pg (25.0-35.0); MCHC 31.5 g/dL (31.0-37.0); MCV 87.9 fL (80.0-100.0); Mean Platelet Volume 7.2; Monocytes # (A) 0.5 k/uL (0-1.0); Monocytes % (A) 6 %; Neutrophils # (A) 5.8 k/uL (1.3-7.7); Neutrophils % (A) 69 %; RBC 4.85 m/uL (4.30-5.90); RDW 12.4 % (11.5-15.5); WBC 8.4 k/uL (3.8-10.6)
[2016-07-06 20:25] LABS: ALT 59 U/L (21-72); AST 46 U/L (17-59); Alkaline Phosphatase 177 U/L (38-126); Amylase 76 U/L (30-110); Blood Urea Nitrogen 15 mg/dL (9-20); Calcium 7.9 mg/dL (8.4-10.2); Chloride 89 mmol/L (98-107); Glucose 234 mg/dL (74-99); Non-African American GFR(MDRD) 35 (>60 ml/min/1.73 sqM); Sodium 139 mmol/L (137-145); Total Protein 6.3 g/dL (6.3-8.2)
[2016-07-06 20:32] LABS: Anion Gap 8 mmol/L
[2016-07-06 20:33] LABS: Carbon Dioxide 42 mmol/L (22-30); Potassium 2.7 mmol/L (3.5-5.1)
[2016-07-06] MEDS ORDERED: POTASSIUM CHLORIDE 20 MEQ, LIDOCAINE 2% INJ 20 MG in SODIUM CHLORIDE 0.9% 100 ML IVPB ONE (21:06)
[2016-07-06] MEDS ORDERED: D5-0.45% NACL WITH KCL 20MEQ/L 1,000 ML IV SCH (21:15)
[2016-07-06] MEDS ORDERED: INSULIN REGULAR 100 UNIT in SODIUM CHLORIDE 0.9% 100 ML IV SCH (21:15)
[2016-07-06] MEDS ORDERED: SODIUM CHLORIDE 0.9% 1,000 ML IV SCH (21:15)
[2016-07-06] MEDS ORDERED: ONDANSETRON ODT 4 MG TAB PO PRN (21:22)
[2016-07-06] MEDS ORDERED: CALCIUM CARBONATE 500 MG CHEWABLE PO PRN (21:22)
[2016-07-06] MEDS ORDERED: HYDROcodone/APAP 10-325MG 1 EACH TAB PO PRN (21:22)
[2016-07-06] MEDS ORDERED: hydrALAZINE HCL 20 MG/ML 1 ML VIAL IVP STA (21:33)
[2016-07-06 23:21] LABS: Glucose,Whole Blood 168 mg/dL (75-99)
[2016-07-06] MEDS ORDERED: METOPROLOL TARTRATE 50 MG TAB PO STA (23:39)
[2016-07-06] MEDS ORDERED: Potassium Replacement Protocol 1 EACH MISC MISCELLANE PRN (23:40)
[2016-07-07 00:04] VITALS: BMI 40.2
[2016-07-07] MEDS: HYDROmorphone 1 MG/ML 1 ML SYRINGE IVP PRN ×4 (00:23→18:25)
[2016-07-07] MEDS: cloNIDine HCL 0.2 MG TAB PO SCH ×2 (00:23→11:54)
[2016-07-07] MEDS: INSULIN LISPRO (humaLOG) 300 UNIT/3 ML VIAL SQ SCH ×8 (00:24→21:01)
[2016-07-07 01:01] LABS: Phosphorous 2.5 mg/dL (2.5-4.5)
[2016-07-07 01:04] LABS: Potassium 2.6 mmol/L (3.5-5.1)
[2016-07-07] MEDS: POTASSIUM CHLORIDE ER 20 MEQ TAB.ER PO SCH ×2 (02:30→03:37)
[2016-07-07 05:55] LABS: Glucose,Whole Blood 280 mg/dL (75-99)
[2016-07-07] MEDS ORDERED: POTASSIUM CHLORIDE ER 20 MEQ TAB.ER PO SCH ×2 (07:00→21:00)
[2016-07-07] MEDS: PANTOPRAZOLE 40 MG TABLET PO SCH (07:02)
[2016-07-07 08:11] VITALS: RESP 16
[2016-07-07] MEDS: METOPROLOL TARTRATE 50 MG TAB PO SCH ×2 (08:11→21:01)
[2016-07-07] MEDS: buPROPion SR 150 MG TABLET.ER PO SCH ×2 (08:11→21:01)
[2016-07-07] MEDS: LOSARTAN 50 MG TAB PO SCH (08:11)
[2016-07-07] MEDS: METOCLOPRAMIDE 5 MG TAB PO SCH ×2 (08:12→21:01)
[2016-07-07] MEDS ORDERED: METOPROLOL TARTRATE 50 MG TAB PO SCH (09:00)
--- NOTE | 2016-07-07 09:11 | P.NPCON ---
History of Present Illness - Reason for Consult chronic renal failure - History of Present Illness Reason for consultation: Chronic kidney disease History of present illness: Patient is a 25-year-old male seen in renal consultation for chronic kidney disease. Patient has chronic kidney disease stage III secondary to diabetic kidney disease with baseline creatinine near 2. Patient presented to the emergency room on July 05 with vomiting and diarrhea. He felt he was dehydrated. He was subsequently discharged home but didn't feel better and came back to the hospital last night. He did receive IV hydration. He currently feels better. He is tolerating oral intake. Denies any vomiting or diarrhea since admission. Admits to good urine output without any hematuria or dysuria. Renal function is relatively stable with creatinine at 2.18 today. He was found to be hypokalemic with a potassium level of 2.6 which has been replaced overnight and repeat potassium from this morning was 3.0. Vital signs are stable. General: The patient appeared well nourished and normally developed. HEENT: Head exam is unremarkable. Neck is without jugular venous distension. LUNGS: Lungs are clear to auscultation and percussion. Breath sounds decreased. HEART: Rate and Rhythm are regular. First and second heart sounds normal. No murmurs, rubs or gallops. ABDOMEN: Abdominal exam reveals normal bowel sounds. Non-tender and non- distended. No evidence of peritonitis. EXTREMITITES: No clubbing, cyanosis, or edema. Past Medical History Past Medical History: Diabetes Mellitus, GERD/Reflux, Hypertension, Renal Disease Additional Past Medical History / Comment(s): IDDM, GASTROPARESIS, gastritis, esophagitis, DKA episodes, hiatal hernia, as child had seizure r/t high fever, acute pancreatits(idiopathic) in july 2015, chronic kidney disease stage III , L leg neuropathy, migraines. History of Any Multi-Drug Resistant Organisms: MRSA Date of last positivie culture/infection: MDRO Source:: CHIN/ Rt leg Past Surgical History: Cholecystectomy, Orthopedic Surgery, Tonsillectomy Additional Past Surgical History / Comment(s): LEFT ELBOW pinned, egd's w/ bx's last done 05-30-16. Past Anesthesia/Blood Transfusion Reactions: No Reported Reaction Past Psychological History: ADD/ADHD, Anxiety, Depression Additional Psychological History / Comment(s): Pt resides with his mother. He is independent. Smoking Status: Former smoker Past Alcohol Use History: None Reported Additional Past Alcohol Use History / Comment(s): Pt states he started smoking in 2006 and quit in 2011 Past Drug Use History: Marijuana Additional Drug Use History / Comment(s): pt states smokes marijuana a couple times per month - Past Family History Mother Family Medical History: Diabetes Mellitus Additional Family Medical History / Comment(s): heart problems-(pt not sure what they were) Father Family Medical History: Diabetes Mellitus Medications and Allergies Home Medications Medication Instructions Recorded Confirmed Type Insulin Aspart [NovoLOG] 8 unit SQ AC-TID 02/08/14 07/06/16 History Insulin Glargine [Lantus] 42 unit SQ HS 06/06/15 07/06/16 History buPROPion SR [Wellbutrin SR] 150 mg PO BID 06/18/15 07/06/16 History Pantoprazole [Protonix] 40 mg PO AC-BRKFST 10/26/15 07/06/16 History Losartan [Cozaar] 50 mg PO DAILY 05/04/16 07/06/16 History Ondansetron Odt [Zofran ODT] 4 mg PO Q12HR PRN 05/04/16 07/06/16 History amLODIPine [Norvasc] 5 mg PO DAILY 05/04/16 07/06/16 History Insulin Aspart [NovoLOG] See Protocol SQ AC-TID PRN 05/28/16 07/06/16 History Mag Hydrox/Al Hydrox/Simeth 30 ml PO DAILY PRN 06/28/16 07/06/16 History [Maalox] Allergies Allergy/AdvReac Type Severity Reaction Status Date / Time No Known Allergies Allergy Verified 07/06/16 19:14 Physical Exam Vitals: Vital Signs Temp Pulse Pulse Resp BP BP Pulse Ox 07/07/16 08:00 97.0 F L 82 16 137/79 99 07/07/16 04:00 97.2 F L 88 18 111/55 98 07/06/16 23:56 97.0 F L 90 18 206/112 100 07/06/16 23:00 97.0 F L 90 18 206/112 100 07/06/16 22:45 87 18 153/100 97 07/06/16 22:28 98 F 88 20 187/102 98 07/06/16 21:27 97.6 F 80 20 207/113 100 Intake and Output 07/06/16 07/07/16 07/07/16 22:59 06:59 14:59 Intake Total 230 Output Total 0 Balance 230 Intake: Oral 230 Output: Urine 0 Other: # Voids 1 # Bowel Movements 1 Weight 116.6 kg Results - Lab Results Most recent lab results Calcium 7.0 mg/dL (8.4-10.2) L 07/07/16 05:38 Phosphorus 2.5 mg/dL (2.5-4.5) 07/07/16 00:39 07/06/16 20:00 07/07/16 05:38 Assessment and Plan Plan: Assessment: #1. Chronic kidney disease stage III secondary to diabetic kidney disease. Baseline creatinine now appears to be near 2. Creatinine today is 2.18. #2. Insulin-dependent diabetes mellitus. #3. Hypokalemia secondary to GI and urinary losses. Potassium level 3.0 this morning. Rule out magnesium deficiency. #4. Nephrotic range proteinuria likely related to diabetic nephropathy. Serologic workup has been negative in the past. However he has been advised to get a kidney biopsy as an outpatient. #5. Intractable vomiting and abdominal pain. Likely related to diabetic gastroparesis. Resolved. Plan: Replace potassium. Repeat level is pending. Check a magnesium level. Avoid nephrotoxic agents and hypotensive episodes. Continue current antihypertensives. Blood pressure is well controlled. Stable to be discharged home from nephrology standpoint. He's to follow-up as an outpatient in the next 2 weeks. He will need a kidney biopsy as an outpatient to confirm the diagnosis of his chronic kidney disease.
[2016-07-07] MEDS ORDERED: POTASSIUM CHLORIDE ER 20 MEQ TAB.ER PO STA ×2 (11:27→11:31)
[2016-07-07 11:57] LABS: Glucose,Whole Blood 212 mg/dL (75-99)
[2016-07-07 12:16] LABS: Glucose,Whole Blood 123 mg/dL (75-99)
[2016-07-07] MEDS: SODIUM CHLORIDE 0.9% 1,000 ML IV SCH ×2 (12:25→20:58)
[2016-07-07] MEDS: amLODIPine 5 MG TAB PO SCH (12:25)
--- NOTE | 2016-07-07 13:57 | HP ---
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 Patient is admitted for DKA, although, patient's anion gap is only 8. Because of that I do not believe patient has any DKA. Patient may have starvation ketosis beyond that the patient does not have any admission requiring DKA. Although patient has some electrolyte abnormalities which are being corrected. Potassium of 2.7, which is being corrected. Patient does have CKD. Patient's creatinine is at his baseline at this point of time, although clinically appears to be mildly dehydrated. Because of which I will continue the IV fluids. Patient has been having multiple episodes of nausea, vomiting and diarrhea. Patient denied any fever, chills. Patient denied any dysuria. The patient is known to have cyclical vomiting syndrome as well as diabetic gastroparesis. Patient will be continued on pain management and pain medications, Protonix and whenever his pain is better, whenever he is able to tolerate oral diet, patient will be discharged. REVIEW OF SYSTEMS: CONSTITUTIONAL: No fever, no malaise, no fatigue. HEENT: No recent visual problems or hearing problems. Denied any sore throat. CARDIOVASCULAR: No chest pain, orthopnea, PND, no palpitations, no syncope. PULMONARY: No shortness of breath, no cough, no hemoptysis. GASTROINTESTINAL: As described in HPI. NEUROLOGICAL: No headaches, no weakness, no numbness. HEMATOLOGICAL: Denies any bleeding or petechiae. GENITOURINARY: Denies any burning micturition, frequency, or urgency. MUSCULOSKELETAL/RHEUMATOLOGICAL: Denies any joint pain, swelling, or any muscle pain. ENDOCRINE: Denies any polyuria or polydipsia. The rest of the 14 point review of systems is negative. PAST MEDICAL HISTORY: Diabetes mellitus, gastroesophageal reflux disease, hypertension, renal disease, gastritis, gastroparesis, cholecystectomy, orthopedic surgery, tonsillectomy, anxiety, depression. The patient quit smoking in 2011. Occasional use of marijuana. Denied any alcohol abuse. FAMILY HISTORY: Mother had diabetes mellitus. Father had diabetes mellitus as well. HOME MEDICATIONS: Insulin aspart, insulin glargine, bupropion, pantoprazole, Losartan, odansetron, amlodipine, insulin. ALLERGIES: No known drug allergies. PHYSICAL EXAMINATION: VITAL SIGNS: Temperature 97.0, pulse of 75, respiratory rate of 16, blood pressure is 125/65. GENERAL: The patient is alert and oriented x3, not in any acute distress. Well developed, well nourished. HEENT: Pupils are round and equally reacting to light. EOMI. No scleral icterus. No conjunctival pallor. Normocephalic, atraumatic. No pharyngeal erythema. No thyromegaly. CARDIOVASCULAR: S1 and S2 present. No murmurs, rubs, or gallops. PULMONARY: Chest is clear to auscultation, no wheezing or crackles. ABDOMEN: Soft, nontender, nondistended, normoactive bowel sounds. No palpable organomegaly. MUSCULOSKELETAL: No joint swelling or deformity. EXTREMITIES: No cyanosis, clubbing, or pedal edema. NEUROLOGICAL: Gross neurological examination did not reveal any focal deficits. SKIN: No rashes. ASSESSMENT AND PLAN: 1. Acute renal failure secondary to prerenal azotemia, which is again secondary to prerenal azotemia. Continue with IV fluids. Patient does have chronic kidney disease. 2. Nausea, vomiting, abdominal pain secondary to gastroparesis. Continue with proton pump inhibitor. Continue with pain medications. 3. Insulin-dependent diabetes mellitus. 4. Diabetic neuropathy. 5. Diabetic neuropathy. 6. Hypertension. I do not believe patient will need Clonidine. Clonidine will be discontinued. 7. Hypokalemia, potassium will be supplemented, secondary to hypovolemia, secondary to nausea, vomiting. 8. Diabetes mellitus with uncontrolled blood sugars without diabetic ketoacidosis. 9. Will continue with his home regimen and will see how he does. Depending on blood sugar response, will titrate the insulin.
[2016-07-07 17:19] LABS: Glucose,Whole Blood 108 mg/dL (75-99)
[2016-07-07] MEDS ORDERED: INSULIN GLARGINE 100 UNIT/ML 10 ML VIAL SQ SCH ×2 (17:30→21:00)
[2016-07-07 18:39] LABS: Hemoglobin A1C 9.7 % (4.2-6.1)
[2016-07-07 20:18] LABS: Glucose,Whole Blood 92 mg/dL (75-99)
[2016-07-08] MEDS: HYDROmorphone 1 MG/ML 1 ML SYRINGE IVP PRN ×3 (00:30→12:17)
[2016-07-08] MEDS ORDERED: POTASSIUM CHLORIDE ER 20 MEQ TAB.ER PO SCH ×3 (01:00→10:00)
[2016-07-08] MEDS: SODIUM CHLORIDE 0.9% 1,000 ML IV SCH ×2 (03:09→12:23)
[2016-07-08 04:17] LABS: Calcium 7.5 mg/dL (8.4-10.2); Potassium 3.5 mmol/L (3.5-5.1)
[2016-07-08 05:39] VITALS: TEMP 98.1
[2016-07-08] MEDS: PANTOPRAZOLE 40 MG TABLET PO SCH (06:34)
[2016-07-08] MEDS ORDERED: Potassium Replacement Protocol 1 EACH MISC MISCELLANE PRN ×2 (07:44→09:23)
[2016-07-08] MEDS: INSULIN LISPRO (humaLOG) 300 UNIT/3 ML VIAL SQ SCH ×4 (07:51→12:32)
[2016-07-08] MEDS: amLODIPine 5 MG TAB PO SCH (07:57)
[2016-07-08 07:58] VITALS: PULSE 70
[2016-07-08] MEDS: METOCLOPRAMIDE 5 MG TAB PO SCH (07:58)
[2016-07-08] MEDS: METOPROLOL TARTRATE 50 MG TAB PO SCH (07:58)
[2016-07-08] MEDS: LOSARTAN 50 MG TAB PO SCH (07:58)
[2016-07-08] MEDS: buPROPion SR 150 MG TABLET.ER PO SCH (07:58)
[2016-07-08] MEDS ORDERED: POTASSIUM CHLORIDE 10 MEQ, LIDOCAINE 2% INJ 10 MG in SODIUM CHLORIDE 0.9% 100 ML IV SCH (09:00)
--- NOTE | 2016-07-08 09:13 | P.PN ---
Subjective Principal diagnosis: Should is seen in follow-up for chronic kidney disease. Patient has chronic kidney disease stage III secondary to diabetic kidney disease. Patient presented with abdominal pain along with vomiting. He did receive IV hydration which is now discontinued. He is tolerating oral intake. Denies any vomiting or diarrhea. No chest pain or shortness of breath. Admits to good urine output. Vital signs are stable. General: The patient appeared well nourished and normally developed. HEENT: Head exam is unremarkable. Neck is without jugular venous distension. LUNGS: Lungs are clear to auscultation and percussion. Breath sounds decreased. HEART: Rate and Rhythm are regular. First and second heart sounds normal. No murmurs, rubs or gallops. ABDOMEN: Abdominal exam reveals normal bowel sounds. Non-tender and non- distended. No evidence of peritonitis. EXTREMITITES: No clubbing, cyanosis, or edema. Objective - Vital Signs Vital signs: Vital Signs Temp 98.1 F 07/08/16 04:00 Pulse 70 07/08/16 07:57 Resp 16 07/08/16 07:57 BP 133/77 07/08/16 07:57 Pulse Ox 100 07/08/16 07:57 Intake & Output 07/07/16 07/08/16 07/08/16 18:59 06:59 18:59 Intake Total 452 Output Total 450 200 Balance 2 -200 Weight 121.5 kg Intake: Oral 452 Output: Urine 450 200 Other: # Voids 1 2 - Labs CBC & Chem 7: 07/06/16 20:00 07/08/16 07:56 Labs: Abnormal Lab Results - Last 24 Hours (Table) 07/07/16 07/07/16 07/07/16 Range/Units 00:39 10:32 11:55 Potassium 3.0 L* (3.5-5.1) mmol/L BUN (9-20) mg/dL Creatinine (0.66-1.25) mg/dL Glucose (74-99) mg/dL POC Glucose (mg/dL) 123 H (75-99) mg/dL Hemoglobin A1c 9.7 H (4.2-6.1) % Calcium (8.4-10.2) mg/dL 07/07/16 07/08/16 Range/Units 17:00 03:17 Potassium (3.5-5.1) mmol/L BUN 22 H (9-20) mg/dL Creatinine 2.43 H (0.66-1.25) mg/dL Glucose 158 H (74-99) mg/dL POC Glucose (mg/dL) 108 H (75-99) mg/dL Hemoglobin A1c (4.2-6.1) % Calcium 7.5 L (8.4-10.2) mg/dL Assessment and Plan Plan: Assessment: #1. Chronic kidney disease stage III secondary to diabetic kidney disease. Baseline creatinine now appears to be near 2-2.3. Creatinine today is 2.43. #2. Insulin-dependent diabetes mellitus. #3. Hypokalemia secondary to GI and urinary losses. Potassium level 3.8 this morning. Magnesium and replete. #4. Nephrotic range proteinuria likely related to diabetic nephropathy. Serologic workup has been negative in the past. However he has been advised to get a kidney biopsy as an outpatient. #5. Intractable vomiting and abdominal pain. Likely related to diabetic gastroparesis. Resolved. Plan: Avoid nephrotoxic agents and hypotensive episodes. Continue current antihypertensives. Blood pressure is well controlled. Stable to be discharged home from nephrology standpoint. He's to follow-up as an outpatient in the next 2 weeks. He will need a kidney biopsy as an outpatient to confirm the diagnosis of his chronic kidney disease.
[2016-07-08 12:14] VITALS: BP 133/93
[2016-07-08 12:31] LABS: Glucose,Whole Blood 96 mg/dL (75-99)
--- NOTE | 2016-07-09 19:24 | DS ---
DATE OF ADMISSION: 07/06/2016 DATE OF DISCHARGE: 07/08/2016 The patient is a 25-year-old with multiple admissions for nausea and vomiting, from gastroparesis and cyclical vomiting syndrome. The patient symptoms improved. Patient has chronic kidney disease. Kidney function is at his baseline. He has CKD Stage IV. The patient is being discharged today in stable medical condition to home. PHYSICAL EXAMINATION: Vitals are stable. GENERAL: The patient is alert and oriented x3, not in any acute distress. Well developed, well nourished. HEENT: Pupils are round and equally reacting to light. EOMI. No scleral icterus. No conjunctival pallor. Normocephalic, atraumatic. No pharyngeal erythema. No thyromegaly. CARDIOVASCULAR: S1 and S2 present. No murmurs, rubs, or gallops. PULMONARY: Chest is clear to auscultation, no wheezing or crackles. ABDOMEN: Soft, nontender, nondistended, normoactive bowel sounds. No palpable organomegaly. MUSCULOSKELETAL: No joint swelling or deformity. EXTREMITIES: No cyanosis, clubbing, or pedal edema. NEUROLOGICAL: Gross neurological examination did not reveal any focal deficits. SKIN: No rashes. FINAL DIAGNOSIS(ES): 1. Nausea, vomiting, epigastric abdominal pain secondary to gastroparesis, gastritis. 2. Insulin-dependent diabetes mellitus. 3. Diabetic neuropathy. 4. Diabetic nephropathy. 5. Hypertension. 6. Hypertension. 7. Chronic kidney disease Stage IV. 8. Hypokalemia due to nausea, vomiting, potassium was supplemented. 9. Type 2 diabetes mellitus, uncontrolled blood sugars due to noncompliance with medications. Patient will be discharged today. DISCHARGE DIET: Cardiac and ADA 1800 calorie diet. Cardiac and renal diet that is low potassium diet. Activity as tolerated. Follow up with Dr. Ronna Bailey in about 3 to 7 days. Spent greater than 35 minutes in total discharge process.
== END 2016-07-08 14:02 | disposition home or self-care (01) | DRG 74 ==
LOC: EC 17:52 → 6SEL 21:08
PROVIDERS: ADMIT Internal Medicine; ATTEND Internal Medicine
DX: E11.43 Type 2 diabetes mellitus with diabetic autonomic (poly)neuropathy (principal); N17.9 Acute kidney failure, unspecified; N18.4 Chronic kidney disease, stage 4 (severe); E11.65 Type 2 diabetes mellitus with hyperglycemia; E11.21 Type 2 diabetes mellitus with diabetic nephropathy; E11.22 Type 2 diabetes mellitus with diabetic chronic kidney disease; K31.84 Gastroparesis; E86.0 Dehydration; E86.1 Hypovolemia; E87.6 Hypokalemia; F12.90 Cannabis use, unspecified, uncomplicated; F90.9 Attention-deficit hyperactivity disorder, unspecified type; G43.A0 Cyclical vomiting, in migraine, not intractable; I12.9 Hypertensive chronic kidney disease with stage 1 through stage 4 chronic kidney disease, or unspecified chronic kidney disease; K21.9 Gastro-esophageal reflux disease without esophagitis; F32.9 Major depressive disorder, single episode, unspecified; F41.9 Anxiety disorder, unspecified; K29.70 Gastritis, unspecified, without bleeding; K44.9 Diaphragmatic hernia without obstruction or gangrene; E11.40 Type 2 diabetes mellitus with diabetic neuropathy, unspecified; G43.909 Migraine, unspecified, not intractable, without status migrainosus; Z79.4 Long term (current) use of insulin; Z79.899 Other long term (current) drug therapy; Z87.891 Personal history of nicotine dependence; Z86.14 Personal history of Methicillin resistant Staphylococcus aureus infection; Z91.14 Patient's other noncompliance with medication regimen
CPT/HCPCS: 36415; 80048; 80053; 82009; 82150; 83036; 83690; 83735; 84100; 84132; 85025; 96361; 96365; 96366; 96375; 96376; 99285

== ENCOUNTER 2016-07-21 00:42 | Observation (INO) | payer OTHER ==
[2016-07-21] MEDS ORDERED: ONDANSETRON 4 MG/2 ML VIAL IVP STA ×2 (01:31→03:53)
[2016-07-21] MEDS ORDERED: SODIUM CHLORIDE 0.9% 1,000 ML IV STA (01:31)
[2016-07-21] MEDS ORDERED: MORPHINE SULFATE 4 MG/ML SYRINGE IV STA ×2 (01:31→03:53)
[2016-07-21 01:43] LABS: Glucose,Whole Blood 41 mg/dL (75-99)
[2016-07-21] MEDS ORDERED: DEXTROSE 50%-WATER 50 ML SYRINGE IVP STA ×2 (01:56→03:02)
[2016-07-21 01:58] LABS: Glucose,Whole Blood 201 mg/dL (75-99)
[2016-07-21] MEDS ORDERED: LORazepam 1 MG TAB PO STA (02:10)
[2016-07-21 02:18] LABS: Appearance,Urine Clear (Clear); Bilirubin,Urine Negative (Negative); Glucose,Urine (UA) 3+ (Negative); Ketones,Urine Negative (Negative); Leukocyte Esterase,Urine Trace (Negative); Mucus,Urine Rare /hpf; Nitrite,Urine Negative (Negative); PH, Urine 7.5 (5.0-8.0); Particle Count 1562; Protein,Urine 3+ (Negative); RBC,Urine 12 /hpf (0-5); Specific Gravity,Urine 1.005 (1.001-1.035); UA Billing (MACRO vs. MICRO) MICRO; Urobilinogen,Urine <2.0 mg/dL (<2.0); WBC,Urine 25 /hpf (0-5)
[2016-07-21 02:38] LABS: Basophils % (A) 0 %; CH 27.9; CHCM 32.4; Eosinophils # (A) 0.2 k/uL (0-0.7); Eosinophils % (A) 1 %; HCT 37.8 % (39.0-53.0); HDW 2.31; HGB 12.2 gm/dL (13.0-17.5); Luc # (Auto) 0.13; Luc % (Auto) 1; Lymphocytes # (A) 1.8 k/uL (1.0-4.8); Lymphocytes % (A) 13 %; MCH 27.9 pg (25.0-35.0); MCHC 32.3 g/dL (31.0-37.0); MCV 86.4 fL (80.0-100.0); Mean Platelet Volume 6.6; Monocytes # (A) 0.7 k/uL (0-1.0); Monocytes % (A) 5 %; Neutrophils # (A) 11.1 k/uL (1.3-7.7); Neutrophils % (A) 80 %; RBC 4.37 m/uL (4.30-5.90); RDW 13.1 % (11.5-15.5); WBC 13.9 k/uL (3.8-10.6); WBC (Perox) 14.09
[2016-07-21 02:52] LABS: Amylase 206 U/L (30-110); Anion Gap 10 mmol/L; Carbon Dioxide 25 mmol/L (22-30); Chloride 109 mmol/L (98-107); Glucose 65 mg/dL (74-99); Non-African American GFR(MDRD) 35 (>60 ml/min/1.73 sqM); Sodium 144 mmol/L (137-145); Total Bilirubin 0.8 mg/dL (0.2-1.3)
[2016-07-21 02:56] LABS: ALT 28 U/L (21-72); AST 37 U/L (17-59); Alkaline Phosphatase 119 U/L (38-126); Blood Urea Nitrogen 22 mg/dL (9-20); Potassium 4.4 mmol/L (3.5-5.1); Total Protein 6.6 g/dL (6.3-8.2)
[2016-07-21 03:55] LABS: Glucose,Whole Blood 181 mg/dL (75-99)
[2016-07-21] MEDS ORDERED: NALOXONE 0.4 MG/ML 1 ML VIAL IV PRN (06:43)
[2016-07-21] MEDS ORDERED: ONDANSETRON 4 MG/2 ML VIAL IVP PRN (06:43)
[2016-07-21] MEDS ORDERED: HYDROmorphone 1 MG/ML 1 ML SYRINGE IVP STA (06:43)
[2016-07-21] MEDS ORDERED: MAG HYDROX/AL HYDROX/SIMETH 30 ML CUP PO PRN (06:43)
[2016-07-21] MEDS ORDERED: METOCLOPRAMIDE 5 MG/ML 2 ML VIAL IVP STA (06:43)
[2016-07-21] MEDS ORDERED: DOCUSATE 100 MG CAP PO PRN (06:43)
[2016-07-21] MEDS ORDERED: CALCIUM CARBONATE 500 MG CHEWABLE PO PRN (06:46)
[2016-07-21] MEDS ORDERED: HYDROcodone/APAP 10-325MG 1 EACH TAB PO PRN (06:46)
--- NOTE | 2016-07-21 06:48 | ED ---
Nausea/Vomiting/Diarrhea HPI - General Chief complaint: Nausea/Vomiting/Diarrhea Stated complaint: Stomach/Lower Back Pain/Vomiting Time Seen by Provider: 07/21/16 01:13 Source: patient Mode of arrival: wheelchair Limitations: no limitations - History of Present Illness MD complaint: nausea, vomiting, abdominal pain -: hour(s) Description of Vomiting: food contents Associated Abdominal Pain: Yes Location: epigastric Radiation: other (Back) Severity: severe Quality: dull Consistency: constant Improves with: none Worsens with: none Associated Symptoms: nausea/vomiting - Related Data Home Medications Medication Instructions Recorded Confirmed Insulin Aspart [NovoLOG] 8 unit SQ AC-TID 02/08/14 07/21/16 Insulin Glargine [Lantus] 42 unit SQ HS 06/06/15 07/21/16 buPROPion SR [Wellbutrin SR] 150 mg PO BID 06/18/15 07/21/16 Pantoprazole [Protonix] 40 mg PO AC-BRKFST 10/26/15 07/21/16 Losartan [Cozaar] 50 mg PO DAILY 05/04/16 07/21/16 Ondansetron Odt [Zofran ODT] 4 mg PO Q12HR PRN 05/04/16 07/21/16 amLODIPine [Norvasc] 5 mg PO DAILY 05/04/16 07/21/16 Insulin Aspart [NovoLOG] See Protocol SQ AC-TID PRN 05/28/16 07/21/16 Mag Hydrox/Al Hydrox/Simeth 30 ml PO DAILY PRN 06/28/16 07/21/16 [Maalox] Previous Rx's Medication Instructions Recorded Metoprolol Tartrate [Lopressor] 100 mg PO BID #60 tab 07/16/15 Calcium Carbonate [Tums] 1,000 mg PO TID PRN #0 chew 05/07/16 Hydrocodone/Acetaminophen [[place] 1 tab PO Q4H PRN #30 tab 07/03/16 10-325] Metoclopramide HCl [Reglan] 5 mg PO BID #30 tablet 07/03/16 Allergies Allergy/AdvReac Type Severity Reaction Status Date / Time No Known Allergies Allergy Verified 07/21/16 01:03 Review of Systems ROS Statement: Those systems with pertinent positive or pertinent negative responses have been documented in the HPI. ROS Other: All systems not noted in ROS Statement are negative. Constitutional: Denies: fever, chills Respiratory: Denies: cough, dyspnea, hemoptysis Cardiovascular: Denies: chest pain, edema, syncope Gastrointestinal: Reports: abdominal pain, nausea, vomiting. Denies: diarrhea, constipation, melena, hematochezia Genitourinary: Denies: dysuria, hematuria Musculoskeletal: Denies: back pain Skin: Denies: rash Neurological: Denies: headache, weakness, numbness Past Medical History Past Medical History: Diabetes Mellitus, GERD/Reflux, Hypertension, Renal Disease Additional Past Medical History / Comment(s): IDDM, GASTROPARESIS, gastritis, esophagitis, DKA episodes, hiatal hernia, as child had seizure r/t high fever, acute pancreatits(idiopathic) in july 2015, chronic kidney disease stage III , L leg neuropathy, migraines. History of Any Multi-Drug Resistant Organisms: MRSA Date of last positivie culture/infection: MDRO Source:: CHIN/ Rt leg Past Surgical History: Cholecystectomy, Orthopedic Surgery, Tonsillectomy Additional Past Surgical History / Comment(s): LEFT ELBOW pinned, egd's w/ bx's last done 05-30-16. Past Anesthesia/Blood Transfusion Reactions: No Reported Reaction Past Psychological History: ADD/ADHD, Anxiety, Depression Additional Psychological History / Comment(s): Pt resides with his mother. He is independent. Smoking Status: Former smoker Past Alcohol Use History: None Reported Additional Past Alcohol Use History / Comment(s): Pt states he started smoking in 2006 and quit in 2011 Past Drug Use History: Marijuana Additional Drug Use History / Comment(s): pt states smokes marijuana a couple times per month - Past Family History Mother Family Medical History: Diabetes Mellitus Additional Family Medical History / Comment(s): heart problems-(pt not sure what they were) Father Family Medical History: Diabetes Mellitus General Exam Limitations: no limitations General appearance: alert, in distress, obese Head exam: Present: atraumatic, normocephalic Eye exam: Present: normal appearance. Absent: scleral icterus, conjunctival injection ENT exam: Present: normal oropharynx Neck exam: Present: normal inspection Respiratory exam: Present: normal lung sounds bilaterally. Absent: respiratory distress, wheezes, rales, rhonchi, stridor Cardiovascular Exam: Present: regular rate, normal rhythm, normal heart sounds. Absent: systolic murmur, diastolic murmur, rubs, gallop GI/Abdominal exam: Present: soft, tenderness (Epigastric), guarding, normal bowel sounds. Absent: distended, rebound, rigid, mass, bruit, pulsatile mass, hernia Extremities exam: Present: normal inspection, normal capillary refill. Absent: pedal edema, calf tenderness Back exam: Present: normal inspection. Absent: CVA tenderness (R), CVA tenderness (L) Neurological exam: Present: alert Skin exam: Present: warm, dry, intact, normal color. Absent: rash Course Vital Signs 07/21/16 07/21/16 07/21/16 01:01 04:02 06:39 Temperature 99.2 F 97.4 F L 97.2 F L Pulse Rate 131 H 104 H 108 H Respiratory 24 20 20 Rate Blood Pressure 223/100 199/103 214/122 O2 Sat by Pulse 100 98 Oximetry Medical Decision Making - Lab Data Result diagrams: 07/21/16 02:25 07/21/16 02:25 Lab Results 07/21/16 07/21/16 07/21/16 Range/Units 01:33 01:47 02:00 WBC (3.8-10.6) k/uL RBC (4.30-5.90) m/uL Hgb (13.0-17.5) gm/dL Hct (39.0-53.0) % MCV (80.0-100.0) fL MCH (25.0-35.0) pg MCHC (31.0-37.0) g/dL RDW (11.5-15.5) % Plt Count (150-450) k/uL Neutrophils % % Lymphocytes % % Monocytes % % Eosinophils % % Basophils % % Neutrophils # (1.3-7.7) k/uL Lymphocytes # (1.0-4.8) k/uL Monocytes # (0-1.0) k/uL Eosinophils # (0-0.7) k/uL Basophils # (0-0.2) k/uL Sodium (137-145) mmol/L Potassium (3.5-5.1) mmol/L Chloride (98-107) mmol/L Carbon Dioxide (22-30) mmol/L Anion Gap mmol/L BUN (9-20) mg/dL Creatinine (0.66-1.25) mg/dL Est GFR (MDRD) Af Amer (>60 ml/min/1.73 sqM) Est GFR (MDRD) Non-Af (>60 ml/min/1.73 sqM) Glucose (74-99) mg/dL POC Glucose (mg/dL) 41 L 201 H (75-99) mg/dL POC Glu Young Adult Librarian ID Sarah Martins A Hulshof, Maggie, A Calcium (8.4-10.2) mg/dL Total Bilirubin (0.2-1.3) mg/dL AST (17-59) U/L ALT (21-72) U/L Alkaline Phosphatase (38-126) U/L Total Protein (6.3-8.2) g/dL Albumin (3.5-5.0) g/dL Amylase (30-110) U/L Lipase (23-300) U/L Urine Color Colorless Urine Appearance Clear (Clear) Urine pH 7.5 (5.0-8.0) Ur Specific [place] 1.005 (1.001-1.035) Urine Protein 3+ H (Negative) Urine Glucose (UA) 3+ H (Negative) Urine Ketones Negative (Negative) Urine Blood Small H (Negative) Urine Nitrate Negative (Negative) Urine Bilirubin Negative (Negative) Urine Urobilinogen <2.0 (<2.0) mg/dL Ur Leukocyte Esterase Trace H (Negative) Urine RBC 12 H (0-5) /hpf Urine WBC 25 H (0-5) /hpf Hyaline Casts 1 (0-2) /lpf Urine Mucus Rare H (None) /hpf Acetone, Qual (Negative) 07/21/16 07/21/16 07/21/16 Range/Units 02:25 02:25 03:51 WBC 13.9 H (3.8-10.6) k/uL RBC 4.37 (4.30-5.90) m/uL Hgb 12.2 L (13.0-17.5) gm/dL Hct 37.8 L (39.0-53.0) % MCV 86.4 (80.0-100.0) fL MCH 27.9 (25.0-35.0) pg MCHC 32.3 (31.0-37.0) g/dL RDW 13.1 (11.5-15.5) % Plt Count 395 (150-450) k/uL Neutrophils % 80 % Lymphocytes % 13 % Monocytes % 5 % Eosinophils % 1 % Basophils % 0 % Neutrophils # 11.1 H (1.3-7.7) k/uL Lymphocytes # 1.8 (1.0-4.8) k/uL Monocytes # 0.7 (0-1.0) k/uL Eosinophils # 0.2 (0-0.7) k/uL Basophils # 0.0 (0-0.2) k/uL Sodium 144 (137-145) mmol/L Potassium 4.4 (3.5-5.1) mmol/L Chloride 109 H (98-107) mmol/L Carbon Dioxide 25 (22-30) mmol/L Anion Gap 10 mmol/L BUN 22 H (9-20) mg/dL Creatinine 2.30 H (0.66-1.25) mg/dL Est GFR (MDRD) Af Amer 42 (>60 ml/min/1.73 sqM) Est GFR (MDRD) Non-Af 35 (>60 ml/min/1.73 sqM) Glucose 65 L (74-99) mg/dL POC Glucose (mg/dL) 181 H (75-99) mg/dL POC Glu Young Adult Librarian ID Sarah Martins A Calcium 9.0 (8.4-10.2) mg/dL Total Bilirubin 0.8 (0.2-1.3) mg/dL AST 37 (17-59) U/L ALT 28 (21-72) U/L Alkaline Phosphatase 119 (38-126) U/L Total Protein 6.6 (6.3-8.2) g/dL Albumin 3.3 L (3.5-5.0) g/dL Amylase 206 H (30-110) U/L Lipase 933 H (23-300) U/L Urine Color Urine Appearance (Clear) Urine pH (5.0-8.0) Ur Specific [place] (1.001-1.035) Urine Protein (Negative) Urine Glucose (UA) (Negative) Urine Ketones (Negative) Urine Blood (Negative) Urine Nitrate (Negative) Urine Bilirubin (Negative) Urine Urobilinogen (<2.0) mg/dL Ur Leukocyte Esterase (Negative) Urine RBC (0-5) /hpf Urine WBC (0-5) /hpf Hyaline Casts (0-2) /lpf Urine Mucus (None) /hpf Acetone, Qual Negative (Negative) Disposition Clinical Impression: Nausea and vomiting in adult, Pancreatitis Disposition: ADMITTED IP TO THIS HOSP Condition: Fair Referrals: Myron Bailey DO [Primary Care Provider] - 1-2 days
[2016-07-21 07:06] LABS: Glucose,Whole Blood 274 mg/dL (75-99)
[2016-07-21] MEDS: SODIUM CHLORIDE 0.9% 1,000 ML IV SCH (10:03)
[2016-07-21] MEDS: FAMOTIDINE 20 MG TAB PO SCH ×2 (10:20→20:55)
[2016-07-21] MEDS: buPROPion SR 150 MG TABLET.ER PO SCH ×2 (10:20→20:55)
[2016-07-21] MEDS: METOCLOPRAMIDE 5 MG TAB PO SCH ×2 (10:20→19:26)
[2016-07-21] MEDS: LOSARTAN 50 MG TAB PO SCH (10:21)
[2016-07-21] MEDS: METOPROLOL TARTRATE 50 MG TAB PO SCH ×2 (10:21→20:55)
[2016-07-21] MEDS: INSULIN LISPRO (humaLOG) 300 UNIT/3 ML VIAL SQ SCH ×7 (10:24→20:55)
[2016-07-21 10:42] VITALS: BMI 39.9
[2016-07-21 10:56] LABS: Glucose,Whole Blood 272 mg/dL (75-99)
[2016-07-21] MEDS: PANTOPRAZOLE 40 MG TABLET PO SCH (11:29)
[2016-07-21 11:56] LABS: Glucose,Whole Blood 275 mg/dL (75-99)
[2016-07-21] MEDS: HYDROmorphone 1 MG/ML 1 ML SYRINGE IV PRN ×3 (12:57→20:58)
[2016-07-21] MEDS: amLODIPine 5 MG TAB PO SCH (12:58)
[2016-07-21 13:48] LABS: Hemoglobin A1C 9.8 % (4.2-6.1)
[2016-07-21 17:03] LABS: Glucose,Whole Blood 122 mg/dL (75-99)
[2016-07-21] MEDS: ENOXAPARIN 40 MG/0.4 ML SYRINGE SQ SCH (17:27)
--- NOTE | 2016-07-21 18:56 | HP ---
DATE OF ADMISSION: 07/21/2016 PRESENTING COMPLAINT: Abdominal pain. HISTORY OF PRESENTING COMPLAINT: This 25-year-old patient known to me from multiple prior admissions, patient of Dr. Bailey. Patient's chronic stable medical conditions include GERD, hypertension, esophagitis, gastroparesis, chronic kidney disease. Patient yet again presented with abdominal pain and epigastric area, unable to stand. Very slight nausea. There is no vomiting. Serum acetone was negative. Patient otherwise had acute pancreatitis. Patient admitted for the same issues, was made n.p.o. REVIEW OF SYSTEMS: CONSTITUTIONAL: None. HEENT: None. RESPIRATORY: None. CARDIOVASCULAR: None. GASTROINTESTINAL: As above. GENITOURINARY: None. MUSCULOSKELETAL: None. DERMATOLOGIC: None. HEMATOLOGIC: None. LYMPHATIC: None. PSYCHIATRY: None. NEUROLOGICAL: None. PAST MEDICAL HISTORY: Diabetes mellitus type 2, GERD, hypertension, gastroparesis, esophagitis, chronic kidney disease. PAST SURGICAL HISTORY: Tonsillectomy. PSYCH HISTORY: Anxiety, depression, ADHD. SOCIAL HISTORY: He lives with his parents. Marijuana occasionally. FAMILY HISTORY: Diabetes mellitus type 2. HOME MEDICATIONS: 1. Wellbutrin SR 150 mg p.o. b.i.d. 2. Norvasc 5 mg a day. 3. Zoloft 50 mg a day. 4. Protonix 40 mg with breakfast. 5. Zofran 4 mg q.12 p.r.n. 6. Lopressor 100 mg p.o. b.i.d. 7. Reglan 5 mg b.i.d. 8. Maalox 30 mL daily p.r.n. 9. Cozaar 50 mg a day. 10. Lantus 42 units subcu q.h.s. 11. NovoLog 8 units subcu a.c. t.i.d. 12. [place] 10, 1 tablet q.4 p.r.n. 13. TUMS 1,000 mg p.o. daily p.r.n. ALLERGIES: None. On examination, temperature 97.4, pulse 104, respiration 20, blood pressure 190/103 on presentation, pulse ox 98% on room air. GENERAL APPEARANCE: Well built. Sitting up, tired appearing. EYES: Pupils equal. Conjunctivae normal. HEENT: Oral cavity normal. NECKS: JVD not raised. Mass not palpable. RESPIRATORY: Effort normal. LUNGS: Fair air entry. CARDIOVASCULAR: First and second sounds normal. No edema. ABDOMEN: Soft, minimal epigastric tenderness. Liver and spleen not palpable. No tenderness. LYMPHATIC: No lymph node palpable in neck or axillae. PSYCHIATRY: Alert and oriented x3. Mood and affect normal. NEUROLOGICAL: Pupils equal. Cranial nerves grossly intact. Power and sensation grossly intact. INVESTIGATIONS: White count 17.1, hemoglobin 12.2, potassium 4.4. BUN 22, creatinine 2.30, amylase 206, lipase 933. Serum acetone negative. ASSESSMENT: 1. Acute pancreatitis, idiopathic. 2. Diabetes mellitus type 2, chronically on insulin. 3. Chronic kidney disease, stage III, from diabetic nephropathy. 4. Obesity, body mass index of 41. 5. Gastroesophageal reflux disease. 6. Essential hypertension. 7. Depression, not otherwise specified. PLAN: The patient was made n.p.o. Home medication are resumed. Patient later did get some clear liquids and tolerated that. Care was discussed with the patient. Lantus to be resumed. Getting IV fluids.
[2016-07-21 20:30] LABS: Glucose,Whole Blood 147 mg/dL (75-99)
[2016-07-21] MEDS ORDERED: INSULIN GLARGINE 100 UNIT/ML 10 ML VIAL SQ SCH (21:00)
[2016-07-22] MEDS: HYDROmorphone 1 MG/ML 1 ML SYRINGE IV PRN ×3 (01:06→09:51)
[2016-07-22 07:04] LABS: Glucose,Whole Blood 95 mg/dL (75-99)
[2016-07-22] MEDS: SODIUM CHLORIDE 0.9% 1,000 ML IV SCH ×2 (07:33→13:38)
[2016-07-22] MEDS: INSULIN LISPRO (humaLOG) 300 UNIT/3 ML VIAL SQ SCH ×4 (08:08→13:34)
[2016-07-22] MEDS: METOCLOPRAMIDE 5 MG TAB PO SCH (08:10)
[2016-07-22] MEDS: ENOXAPARIN 40 MG/0.4 ML SYRINGE SQ SCH (08:11)
[2016-07-22] MEDS: buPROPion SR 150 MG TABLET.ER PO SCH (08:11)
[2016-07-22] MEDS: amLODIPine 5 MG TAB PO SCH (08:11)
[2016-07-22] MEDS: PANTOPRAZOLE 40 MG TABLET PO SCH (08:11)
[2016-07-22] MEDS: LOSARTAN 50 MG TAB PO SCH (08:12)
[2016-07-22] MEDS: FAMOTIDINE 20 MG TAB PO SCH (08:12)
[2016-07-22] MEDS: METOPROLOL TARTRATE 50 MG TAB PO SCH (08:12)
[2016-07-22 08:53] VITALS: BP 153/94; PULSE 74; RESP 18; TEMP 97
[2016-07-22 12:21] LABS: Glucose,Whole Blood 101 mg/dL (75-99)
--- NOTE | 2016-07-24 22:40 | DS ---
DATE OF ADMISSION: 07/21/2016 DATE OF DISCHARGE: 07/22/2016 FINAL DIAGNOSES: 1. Acute pancreatitis, idiopathic. 2. Diabetes mellitus, type 2, chronically on insulin. 3. Chronic kidney stage, stage III, from diabetic nephropathy. 4. Obesity; body mass index of 41. 5. Gastroesophageal reflux disease. 6. Essential hypertension. 7. Depression not otherwise specified. HOSPITAL COURSE: This patient presented with acute pancreatitis. Numbers came down. The patient was tolerating a diet by the time of discharge. On exam, abdomen was soft, nontender. DISCHARGE MEDICATIONS: 1. NovoLog 8 units subcutaneously before meals t.i.d. 2. Lantus 42 units subcutaneously at bedtime. 3. Wellbutrin SR 150 mg p.o. b.i.d. 4. Lopressor 100 mg p.o. b.i.d. 5. Protonix 40 mg p.o. with breakfast. 6. Cozaar 50 mg p.o. daily. 7. Zofran 4 mg p.o. q.12 p.r.n. 8. Norvasc 5 mg p.o. daily. 9. TUMS 1000 mg p.o. t.i.d. p.r.n. h 10. NovoLog before meals t.i.d. p.r.n. 11. Maalox 30 mL p.o. daily p.r.n. 12. [place] 10 one tablet q.4 p.r.n. 13. Reglan 5 mg p.o. b.i.d.; 30 tablets. 14. Zoloft 50 mg p.o. daily. Follow up with Dr. Bailey in 3 days.
== END 2016-07-22 15:20 | disposition home or self-care (01) ==
LOC: EC 00:42 → 5MS5E 06:44
PROVIDERS: ADMIT Hospitalist; ATTEND Hospitalist
DX: K85.00 Idiopathic acute pancreatitis without necrosis or infection (principal); I12.9 Hypertensive chronic kidney disease with stage 1 through stage 4 chronic kidney disease, or unspecified chronic kidney disease; E11.22 Type 2 diabetes mellitus with diabetic chronic kidney disease; N18.3 Chronic kidney disease, stage 3 (moderate); E11.43 Type 2 diabetes mellitus with diabetic autonomic (poly)neuropathy; K31.84 Gastroparesis; E66.9 Obesity, unspecified; Z68.41 Body mass index [BMI] 40.0-44.9, adult; K21.0 Gastro-esophageal reflux disease with esophagitis; F32.9 Major depressive disorder, single episode, unspecified; F41.9 Anxiety disorder, unspecified; F90.9 Attention-deficit hyperactivity disorder, unspecified type; F12.90 Cannabis use, unspecified, uncomplicated; Z79.4 Long term (current) use of insulin; Z79.899 Other long term (current) drug therapy; Z86.14 Personal history of Methicillin resistant Staphylococcus aureus infection; Z87.891 Personal history of nicotine dependence; Z83.3 Family history of diabetes mellitus
CPT/HCPCS: 36415; 80053; 82150; 83036; 82009; 83690; 85025; 81001; 99285; 96374; 96375 ×4; 96376 ×3; G0378 ×2; J2270; J2765; S0106 ×2; J2405 ×2; J1650 ×2; J1170 ×2; 96372

== ENCOUNTER 2016-08-03 13:44 | Emergency (ER) | payer OTHER ==
[2016-08-03 15:05] VITALS: TEMP 97.6
[2016-08-03 16:24] LABS: Appearance,Urine Clear (Clear); Bilirubin,Urine Negative (Negative); Glucose,Urine (UA) 3+ (Negative); Ketones,Urine Negative (Negative); Leukocyte Esterase,Urine Negative (Negative); Mucus,Urine Rare /hpf; Nitrite,Urine Negative (Negative); Particle Count 1464; Protein,Urine 3+ (Negative); RBC,Urine 14 /hpf (0-5); Specific Gravity,Urine 1.006 (1.001-1.035); UA Billing (MACRO vs. MICRO) MICRO; Urobilinogen,Urine <2.0 mg/dL (<2.0); WBC,Urine 4 /hpf (0-5)
--- NOTE | 2016-08-03 16:32 | ED ---
General Adult HPI - General Chief complaint: Abdominal Pain Stated complaint: Abd Pain/Vomiting Time Seen by Provider: 08/03/16 15:28 Source: patient, RN notes reviewed Mode of arrival: ambulatory Limitations: no limitations - History of Present Illness Initial comments: Patient 25-year-old male with significant past history for diabetes, gastroparesis, who presents emergency room today with chief complaint of increased nausea vomiting abdominal pain that started this morning approximately 8 AM. Patient does admit to pain located in the epigastric area. Does admit to several episodes of nausea vomiting with Tylenol. Denies any signs of blood. Denies any other complaints or associated symptoms currently. Patient denies any recent fever, chills, shortness of breath, chest pain, back pain, numbness or tingling, dysuria or hematuria, constipation or diarrhea, headaches or visual changes, or any other complaints. - Related Data Home Medications Medication Instructions Recorded Confirmed Insulin Aspart [NovoLOG] 8 unit SQ AC-TID 02/08/14 08/03/16 Insulin Glargine [Lantus] 42 unit SQ HS 06/06/15 08/03/16 buPROPion SR [Wellbutrin SR] 150 mg PO BID 06/18/15 08/03/16 Pantoprazole [Protonix] 40 mg PO AC-BRKFST 10/26/15 08/03/16 Losartan [Cozaar] 50 mg PO DAILY 05/04/16 08/03/16 Ondansetron Odt [Zofran ODT] 4 mg PO Q12HR PRN 05/04/16 08/03/16 amLODIPine [Norvasc] 5 mg PO DAILY 05/04/16 08/03/16 Insulin Aspart [NovoLOG] See Protocol SQ AC-TID PRN 05/28/16 08/03/16 Mag Hydrox/Al Hydrox/Simeth 30 ml PO DAILY PRN 06/28/16 08/03/16 [Maalox] Sertraline [Zoloft] 50 mg PO DAILY 07/21/16 08/03/16 Previous Rx's Medication Instructions Recorded Metoprolol Tartrate [Lopressor] 100 mg PO BID #60 tab 07/16/15 Calcium Carbonate [Tums] 1,000 mg PO TID PRN #0 chew 05/07/16 Hydrocodone/Acetaminophen [[place] 1 tab PO Q4H PRN #30 tab 07/03/16 10-325] Metoclopramide HCl [Reglan] 5 mg PO BID #30 tablet 07/03/16 Ondansetron Odt [Zofran ODT] 4 mg PO Q8HR PRN #15 tab 08/03/16 Allergies Allergy/AdvReac Type Severity Reaction Status Date / Time No Known Allergies Allergy Verified 08/03/16 15:35 Review of Systems ROS Statement: Those systems with pertinent positive or pertinent negative responses have been documented in the HPI. ROS Other: All systems not noted in ROS Statement are negative. Past Medical History Past Medical History: Diabetes Mellitus, GERD/Reflux, Hypertension, Renal Disease Additional Past Medical History / Comment(s): IDDM, GASTROPARESIS, gastritis, esophagitis, DKA episodes, hiatal hernia, as child had seizure r/t high fever, acute pancreatits(idiopathic) in july 2015, chronic kidney disease stage III , L leg neuropathy, migraines. History of Any Multi-Drug Resistant Organisms: MRSA Date of last positivie culture/infection: MDRO Source:: CHIN/ Rt leg Past Surgical History: Cholecystectomy, Orthopedic Surgery, Tonsillectomy Additional Past Surgical History / Comment(s): LEFT ELBOW pinned, egd's w/ bx's last done 05-30-16. Past Anesthesia/Blood Transfusion Reactions: No Reported Reaction Past Psychological History: ADD/ADHD, Anxiety, Depression Additional Psychological History / Comment(s): Pt resides with his mother. He is independent. Smoking Status: Former smoker Past Alcohol Use History: None Reported Additional Past Alcohol Use History / Comment(s): Pt states he started smoking in 2006 and quit in 2011 Past Drug Use History: Marijuana Additional Drug Use History / Comment(s): pt states smokes marijuana a couple times per month - Past Family History Mother Family Medical History: Diabetes Mellitus Additional Family Medical History / Comment(s): heart problems-(pt not sure what they were) Father Family Medical History: Diabetes Mellitus General Exam - General Exam Comments Initial Comments: General: The patient is awake and alert, in no distress, and does not appear acutely ill. Eye: Pupils are equal, round and reactive to light, extra-ocular movements are intact. No nystagmus. There is normal conjunctiva bilaterally. No signs of icterus. Ears, nose, mouth and throat: There are moist mucous membranes and no oral lesions. Neck: The neck is supple, there is no tenderness or JVD. Cardiovascular: There is a regular rate and rhythm. No murmur, rub or gallop is appreciated. Respiratory: Lungs are clear to auscultation, respirations are non-labored, breath sounds are equal. No wheezes, stridor, rales, or rhonchi. Gastrointestinal: Normal appearance or abdomen. Normal bowel sounds. Abdomen soft on palpation. Patient does have tenderness epigastric. No rebound tenderness. No guarding. Musculoskeletal: Normal ROM, no tenderness. Strength 5/5. Sensation intact. Pulses equal bilaterally 2+. Neurological: A&O x 3. CN II-XII intact, There are no obvious motor or sensory deficits. Coordination appears grossly intact. Speech is normal. Skin: Skin is warm and dry and no rashes or lesions are noted. Psychiatric: Cooperative, appropriate mood & affect, normal judgment. Limitations: no limitations Course Vital Signs 08/03/16 15:03 Temperature 97.6 F Pulse Rate 108 H Respiratory 18 Rate Blood Pressure 135/105 O2 Sat by Pulse 98 Oximetry Medical Decision Making - Medical Decision Making Patient 25-year-old male with history of gastroparesis and diabetes presenting for nausea or vomiting. Patient has multiple ER visits for the same. Case discussed in detail with attending physician Dr. Anderson. Patient's labs reviewed. Patient declined x-ray. Negative acetone. Patient's kidney function shows elevated creatinine 2.7 previous show similar findings. Patient given a liter and half of fluids here in the emergency room. Feeling better after medications. Discharged home advised follow-up over the next 2 days. Given nausea medication to go home with. - Lab Data Result diagrams: 08/03/16 16:30 08/03/16 16:30 Lab Results 08/03/16 08/03/16 08/03/16 Range/Units 16:15 16:30 16:30 WBC 8.3 (3.8-10.6) k/uL RBC 4.22 L (4.30-5.90) m/uL Hgb 11.5 L (13.0-17.5) gm/dL Hct 37.3 L (39.0-53.0) % MCV 88.3 (80.0-100.0) fL MCH 27.3 (25.0-35.0) pg MCHC 30.9 L (31.0-37.0) g/dL RDW 12.7 (11.5-15.5) % Plt Count 298 (150-450) k/uL Neutrophils % 82 % Lymphocytes % 11 % Monocytes % 3 % Eosinophils % 1 % Basophils % 0 % Neutrophils # 6.8 (1.3-7.7) k/uL Lymphocytes # 0.9 L (1.0-4.8) k/uL Monocytes # 0.3 (0-1.0) k/uL Eosinophils # 0.1 (0-0.7) k/uL Basophils # 0.0 (0-0.2) k/uL Sodium 140 (137-145) mmol/L Potassium 3.7 (3.5-5.1) mmol/L Chloride 104 (98-107) mmol/L Carbon Dioxide 25 (22-30) mmol/L Anion Gap 11 mmol/L BUN 24 H (9-20) mg/dL Creatinine 2.72 H (0.66-1.25) mg/dL Est GFR (MDRD) Af Amer 35 (>60 ml/min/1.73 sqM) Est GFR (MDRD) Non-Af 29 (>60 ml/min/1.73 sqM) Glucose 270 H (74-99) mg/dL Calcium 8.9 (8.4-10.2) mg/dL Total Bilirubin 0.7 (0.2-1.3) mg/dL AST 26 (17-59) U/L ALT 27 (21-72) U/L Alkaline Phosphatase 130 H (38-126) U/L Total Protein 6.6 (6.3-8.2) g/dL Albumin 3.3 L (3.5-5.0) g/dL Amylase 134 H (30-110) U/L Lipase 197 (23-300) U/L Urine Color Light Yellow Urine Appearance Clear (Clear) Urine pH 7.0 (5.0-8.0) Ur Specific [place] 1.006 (1.001-1.035) Urine Protein 3+ H (Negative) Urine Glucose (UA) 3+ H (Negative) Urine Ketones Negative (Negative) Urine Blood Small H (Negative) Urine Nitrate Negative (Negative) Urine Bilirubin Negative (Negative) Urine Urobilinogen <2.0 (<2.0) mg/dL Ur Leukocyte Esterase Negative (Negative) Urine RBC 14 H (0-5) /hpf Urine WBC 4 (0-5) /hpf Urine Mucus Rare H (None) /hpf Acetone, Qual Negative (Negative) Disposition Clinical Impression: Nausea & vomiting Disposition: HOME SELF-CARE Condition: Good Instructions: Acute Nausea and Vomiting (ED) Additional Instructions: Please use medication as discussed. Please follow-up with family doctor in the next 2 days of symptoms have not improved. Please return to emergency room if the symptoms increase or worsen or for any other concerns. Prescriptions: Ondansetron Odt [Zofran ODT] 4 mg PO Q8HR PRN #15 tab PRN Reason: Nausea Referrals: Myron Bailey DO [Primary Care Provider] - 1-2 days Time of Disposition: 17:38
[2016-08-03] MEDS: SODIUM CHLORIDE 0.9% 500 ML IV STA (16:35)
[2016-08-03] MEDS: SODIUM CHLORIDE 0.9% 1,000 ML IV STA (16:35)
[2016-08-03] MEDS: HYDROmorphone 1 MG/ML 1 ML SYRINGE IVP STA ×2 (16:35→18:52)
[2016-08-03] MEDS: ONDANSETRON 4 MG/2 ML VIAL IVP STA ×2 (16:35→17:37)
[2016-08-03 16:44] LABS: Basophils % (A) 0 %; CH 27.7; CHCM 31.5; Eosinophils # (A) 0.1 k/uL (0-0.7); Eosinophils % (A) 1 %; HCT 37.3 % (39.0-53.0); HDW 2.36; HGB 11.5 gm/dL (13.0-17.5); Luc # (Auto) 0.13; Luc % (Auto) 2; Lymphocytes # (A) 0.9 k/uL (1.0-4.8); Lymphocytes % (A) 11 %; MCH 27.3 pg (25.0-35.0); MCHC 30.9 g/dL (31.0-37.0); MCV 88.3 fL (80.0-100.0); Mean Platelet Volume 7.2; Monocytes # (A) 0.3 k/uL (0-1.0); Monocytes % (A) 3 %; Neutrophils # (A) 6.8 k/uL (1.3-7.7); Neutrophils % (A) 82 %; RBC 4.22 m/uL (4.30-5.90); RDW 12.7 % (11.5-15.5); WBC 8.3 k/uL (3.8-10.6); WBC (Perox) 8.56
[2016-08-03 16:53] LABS: ALT 27 U/L (21-72); AST 26 U/L (17-59); Alkaline Phosphatase 130 U/L (38-126); Amylase 134 U/L (30-110); Anion Gap 11 mmol/L; Blood Urea Nitrogen 24 mg/dL (9-20); Calcium 8.9 mg/dL (8.4-10.2); Carbon Dioxide 25 mmol/L (22-30); Chloride 104 mmol/L (98-107); Glucose 270 mg/dL (74-99); Non-African American GFR(MDRD) 29 (>60 ml/min/1.73 sqM); Potassium 3.7 mmol/L (3.5-5.1); Sodium 140 mmol/L (137-145); Total Bilirubin 0.7 mg/dL (0.2-1.3); Total Protein 6.6 g/dL (6.3-8.2)
[2016-08-03] MEDS: LORazepam 2 MG/ML SYRINGE IV STA ×2 (17:37→17:38)
[2016-08-03] MEDS: LABETALOL SYRINGE 5 MG/ML IVP STA (18:17)
[2016-08-03] MEDS: hydrALAZINE HCL 20 MG/ML 1 ML VIAL IVP STA (19:06)
[2016-08-03 19:51] VITALS: BP 187/93; PULSE 83; RESP 16
== END 2016-08-03 19:49 | disposition home or self-care (01) ==
LOC: EC 13:44
DX: R11.2 Nausea with vomiting, unspecified (principal); R10.13 Epigastric pain; E11.40 Type 2 diabetes mellitus with diabetic neuropathy, unspecified; I12.9 Hypertensive chronic kidney disease with stage 1 through stage 4 chronic kidney disease, or unspecified chronic kidney disease; N18.3 Chronic kidney disease, stage 3 (moderate); K21.9 Gastro-esophageal reflux disease without esophagitis; F32.9 Major depressive disorder, single episode, unspecified; F41.9 Anxiety disorder, unspecified; Z87.891 Personal history of nicotine dependence; Z79.4 Long term (current) use of insulin; Z79.899 Other long term (current) drug therapy
CPT/HCPCS: 99284; 96374; 96375 ×4; 96376 ×2; 96361; 36415; 80053; 82150; 82009; 83690; 85025; 81001; J2060; J0360; J2405; J1170

== ENCOUNTER 2016-08-19 17:28 | Emergency (ER) | payer OTHER ==
[2016-08-19] MEDS ORDERED: SODIUM CHLORIDE 0.9% 1,000 ML IV STA (18:32)
[2016-08-19] MEDS ORDERED: MORPHINE SULFATE 4 MG/ML SYRINGE IV STA (18:32)
[2016-08-19] MEDS ORDERED: PANTOPRAZOLE 40 MG/10 ML VIAL IVP STA (18:32)
[2016-08-19] MEDS ORDERED: diphenhydrAMINE 50 MG/ML 1 ML VIAL IVP STA (18:32)
[2016-08-19] MEDS ORDERED: SODIUM CHLORIDE 0.9% 2,000 ML IV STA (18:32)
[2016-08-19] MEDS ORDERED: ONDANSETRON 4 MG/2 ML VIAL IVP STA (18:32)
[2016-08-19] MEDS ORDERED: SODIUM CHLORIDE 0.9% 500 ML IV STA (18:32)
--- NOTE | 2016-08-19 18:34 | ED ---
General Adult HPI - General Source: patient, RN notes reviewed, old records reviewed Mode of arrival: ambulatory Limitations: no limitations <James Yeh - Last Filed: 08/19/16 18:33> <Davidson Hinton - Last Filed: 08/19/16 21:38> - General Chief complaint: Abdominal Pain Stated complaint: abdominal pain, nausea, vomiting, tightness in juana Time Seen by Provider: 08/19/16 18:32 - History of Present Illness Initial comments: This is a 25-year-old male the ER for evaluation. This patient presents today for evaluation of nausea vomiting. Severe nausea vomiting and pain. Severe abdominal pain. Patient is well-known to this emergency room for similar symptoms, had diabetes, bed gastroparesis, and terrible pain control, multiple recent hospital minutes, patient basically lives in the hospital and was recently discharged. Patient is actively vomiting on exam. No other fevers or Getting factors (James Yeh) - Related Data Home Medications Medication Instructions Recorded Confirmed Insulin Aspart [NovoLOG] 8 unit SQ AC-TID 02/08/14 08/19/16 Insulin Glargine [Lantus] 42 unit SQ HS 06/06/15 08/19/16 buPROPion SR [Wellbutrin SR] 150 mg PO BID 06/18/15 08/19/16 Pantoprazole [Protonix] 40 mg PO AC-BRKFST 10/26/15 08/19/16 Losartan [Cozaar] 50 mg PO DAILY 05/04/16 08/19/16 amLODIPine [Norvasc] 5 mg PO DAILY 05/04/16 08/19/16 Insulin Aspart [NovoLOG] See Protocol SQ AC-TID PRN 05/28/16 08/19/16 Mag Hydrox/Al Hydrox/Simeth 30 ml PO DAILY PRN 06/28/16 08/19/16 [Maalox] Sertraline [Zoloft] 50 mg PO DAILY 07/21/16 08/19/16 Previous Rx's Medication Instructions Recorded Metoprolol Tartrate [Lopressor] 100 mg PO BID #60 tab 07/16/15 Calcium Carbonate [Tums] 1,000 mg PO TID PRN #0 chew 05/07/16 Hydrocodone/Acetaminophen [[place] 1 tab PO Q4H PRN #30 tab 07/03/16 10-325] Metoclopramide HCl [Reglan] 5 mg PO BID #30 tablet 07/03/16 Ondansetron Odt [Zofran ODT] 4 mg PO Q8HR PRN #15 tab 08/03/16 Nitrofurantoin Monohyd/M-Cryst 100 mg PO Q12HR #20 cap 08/19/16 [Macrobid] Allergies Allergy/AdvReac Type Severity Reaction Status Date / Time No Known Allergies Allergy Verified 08/19/16 18:20 Review of Systems ROS Other: All systems not noted in ROS Statement are negative. <James Yeh - Last Filed: 08/19/16 18:33> ROS Other: All systems not noted in ROS Statement are negative. <Davidson Hinton - Last Filed: 08/19/16 21:38> ROS Statement: Those systems with pertinent positive or pertinent negative responses have been documented in the HPI. Past Medical History Past Medical History: Diabetes Mellitus, GERD/Reflux, Hypertension, Renal Disease Additional Past Medical History / Comment(s): IDDM, GASTROPARESIS, gastritis, esophagitis, DKA episodes, hiatal hernia, as child had seizure r/t high fever, acute pancreatits(idiopathic) in july 2015, chronic kidney disease stage III , L leg neuropathy, migraines. History of Any Multi-Drug Resistant Organisms: MRSA Date of last positivie culture/infection: MDRO Source:: CHIN/ Rt leg Past Surgical History: Cholecystectomy, Orthopedic Surgery, Tonsillectomy Additional Past Surgical History / Comment(s): LEFT ELBOW pinned, egd's w/ bx's last done 05-30-16. Past Anesthesia/Blood Transfusion Reactions: No Reported Reaction Past Psychological History: ADD/ADHD, Anxiety, Depression Additional Psychological History / Comment(s): Pt resides with his mother. He is independent. Smoking Status: Former smoker Past Alcohol Use History: None Reported Additional Past Alcohol Use History / Comment(s): Pt states he started smoking in 2006 and quit in 2011 Past Drug Use History: Marijuana Additional Drug Use History / Comment(s): pt states smokes marijuana a couple times per month - Past Family History Mother Family Medical History: Diabetes Mellitus Additional Family Medical History / Comment(s): heart problems-(pt not sure what they were) Father Family Medical History: Diabetes Mellitus <James Yeh - Last Filed: 08/19/16 18:33> General Exam Limitations: no limitations General appearance: alert, in no apparent distress Head exam: Present: atraumatic, normocephalic, normal inspection Eye exam: Present: normal appearance, PERRL, EOMI. Absent: scleral icterus, conjunctival injection, periorbital swelling ENT exam: Present: normal exam, mucous membranes moist Neck exam: Present: normal inspection. Absent: tenderness, meningismus, lymphadenopathy Respiratory exam: Present: normal lung sounds bilaterally. Absent: respiratory distress, wheezes, rales, rhonchi, stridor Cardiovascular Exam: Present: regular rate, normal rhythm, normal heart sounds. Absent: systolic murmur, diastolic murmur, rubs, gallop, clicks GI/Abdominal exam: Present: soft, normal bowel sounds. Absent: distended, tenderness, guarding, rebound, rigid Extremities exam: Present: normal inspection, full ROM, normal capillary refill. Absent: tenderness, pedal edema, joint swelling, calf tenderness Back exam: Present: normal inspection Neurological exam: Present: alert, oriented X3, CN II-XII intact Psychiatric exam: Present: normal affect, normal mood Skin exam: Present: warm, dry, intact, normal color. Absent: rash <Jamse Yeh - Last Filed: 08/19/16 18:33> Course <James Yeh - Last Filed: 08/19/16 18:33> <Davidson Hinton - Last Filed: 08/19/16 21:38> Vital Signs 08/19/16 08/19/16 08/19/16 17:45 20:00 20:32 Temperature 98.1 F Pulse Rate 90 99 95 Respiratory 18 20 20 Rate Blood Pressure 203/103 219/113 215/105 O2 Sat by Pulse 98 98 100 Oximetry 08/19/16 21:10 Temperature Pulse Rate 106 H Respiratory 20 Rate Blood Pressure 213/97 O2 Sat by Pulse 99 Oximetry - Reevaluation(s) Reevaluation #1: 08/19/16 19:57 Patient reevaluated by myself, Dr. Hinton. Abdomen soft and nontender. Patient updated on results and need for follow-up. Patient has been provided large fluid bolus. Patient will be covered with antibiotics for possible urinary tract infection. Culture was ordered. 08/19/16 21:38 Patient received several IV medications with improvement of blood pressure. ( Davidson Hinton) Medical Decision Making - Lab Data Result diagrams: 08/19/16 19:20 08/19/16 19:20 <Davidson Hinton - Last Filed: 08/19/16 21:38> - Lab Data Lab Results 08/19/16 08/19/16 08/19/16 Range/Units 19:20 19:20 19:20 WBC 7.9 (3.8-10.6) k/uL RBC 3.70 L (4.30-5.90) m/uL Hgb 10.2 L (13.0-17.5) gm/dL Hct 32.3 L (39.0-53.0) % MCV 87.4 (80.0-100.0) fL MCH 27.5 (25.0-35.0) pg MCHC 31.4 (31.0-37.0) g/dL RDW 13.2 (11.5-15.5) % Plt Count 263 (150-450) k/uL Neutrophils % 76 % Lymphocytes % 14 % Monocytes % 6 % Eosinophils % 1 % Basophils % 0 % Neutrophils # 6.0 (1.3-7.7) k/uL Lymphocytes # 1.1 (1.0-4.8) k/uL Monocytes # 0.5 (0-1.0) k/uL Eosinophils # 0.1 (0-0.7) k/uL Basophils # 0.0 (0-0.2) k/uL VBG pH (7.31-7.41) VBG pCO2 (37-51) mmHg VBG HCO3 (24-28) mmol/L Sodium 138 (137-145) mmol/L Potassium 4.4 (3.5-5.1) mmol/L Chloride 103 (98-107) mmol/L Carbon Dioxide 25 (22-30) mmol/L Anion Gap 10 mmol/L BUN 28 H (9-20) mg/dL Creatinine 3.20 H (0.66-1.25) mg/dL Est GFR (MDRD) Af Amer 29 (>60 ml/min/1.73 sqM) Est GFR (MDRD) Non-Af 24 (>60 ml/min/1.73 sqM) Glucose 272 H (74-99) mg/dL Plasma Lactic Acid [place] (0.7-2.0) mmol/L Calcium 8.6 (8.4-10.2) mg/dL Phosphorus 4.2 (2.5-4.5) mg/dL Total Bilirubin 0.7 (0.2-1.3) mg/dL AST 24 (17-59) U/L ALT 34 (21-72) U/L Alkaline Phosphatase 129 H (38-126) U/L Total Creatine Kinase 359 H (55-170) U/L CK-MB (CK-2) 2.0 (0.0-2.4) ng/mL CK-MB (CK-2) Rel Index 0.6 Total Protein 5.8 L (6.3-8.2) g/dL Albumin 2.8 L (3.5-5.0) g/dL Amylase 84 (30-110) U/L Lipase 355 H (23-300) U/L Urine Color Urine Appearance (Clear) Urine pH (5.0-8.0) Ur Specific [place] (1.001-1.035) Urine Protein (Negative) Urine Glucose (UA) (Negative) Urine Ketones (Negative) Urine Blood (Negative) Urine Nitrate (Negative) Urine Bilirubin (Negative) Urine Urobilinogen (<2.0) mg/dL Ur Leukocyte Esterase (Negative) Urine RBC (0-5) /hpf Urine WBC (0-5) /hpf Ur Squamous Epith Cells (0-4) /hpf Urine Bacteria (None) /hpf Hyaline Casts (0-2) /lpf Granular Casts (0) /lpf Urine Mucus (None) /hpf Urine Opiates Screen (NotDetected) Ur Oxycodone Screen (NotDetected) Urine Methadone Screen (NotDetected) Ur Propoxyphene Screen (NotDetected) Ur Barbiturates Screen (NotDetected) U Tricyclic Antidepress (NotDetected) Ur Phencyclidine Scrn (NotDetected) Ur Amphetamines Screen (NotDetected) U Methamphetamines Scrn (NotDetected) U Benzodiazepines Scrn (NotDetected) Urine Cocaine Screen (NotDetected) U Marijuana (THC) Screen (NotDetected) Serum Alcohol <10 mg/dL Acetone, Qual Negative (Negative) 02/19/17 02/19/17 02/19/17 Range/Units 19:20 19:20 19:20 WBC (3.8-10.6) k/uL RBC (4.30-5.90) m/uL Hgb (13.0-17.5) gm/dL Hct (39.0-53.0) % MCV (80.0-100.0) fL MCH (25.0-35.0) pg MCHC (31.0-37.0) g/dL RDW (11.5-15.5) % Plt Count (150-450) k/uL Neutrophils % % Lymphocytes % % Monocytes % % Eosinophils % % Basophils % % Neutrophils # (1.3-7.7) k/uL Lymphocytes # (1.0-4.8) k/uL Monocytes # (0-1.0) k/uL Eosinophils # (0-0.7) k/uL Basophils # (0-0.2) k/uL VBG pH 7.40 (7.31-7.41) VBG pCO2 46 (37-51) mmHg VBG HCO3 28 (24-28) mmol/L Sodium (137-145) mmol/L Potassium (3.5-5.1) mmol/L Chloride (98-107) mmol/L Carbon Dioxide (22-30) mmol/L Anion Gap mmol/L BUN (9-20) mg/dL Creatinine (0.66-1.25) mg/dL Est GFR (MDRD) Af Amer (>60 ml/min/1.73 sqM) Est GFR (MDRD) Non-Af (>60 ml/min/1.73 sqM) Glucose (74-99) mg/dL Plasma Lactic Acid [place] 1.0 (0.7-2.0) mmol/L Calcium (8.4-10.2) mg/dL Phosphorus (2.5-4.5) mg/dL Total Bilirubin (0.2-1.3) mg/dL AST (17-59) U/L ALT (21-72) U/L Alkaline Phosphatase (38-126) U/L Total Creatine Kinase (55-170) U/L CK-MB (CK-2) (0.0-2.4) ng/mL CK-MB (CK-2) Rel Index Total Protein (6.3-8.2) g/dL Albumin (3.5-5.0) g/dL Amylase (30-110) U/L Lipase (23-300) U/L Urine Color Light Yellow Urine Appearance Cloudy (Clear) Urine pH 8.0 (5.0-8.0) Ur Specific [place] 1.006 (1.001-1.035) Urine Protein 3+ H (Negative) Urine Glucose (UA) 4+ H (Negative) Urine Ketones Negative (Negative) Urine Blood Small H (Negative) Urine Nitrate Negative (Negative) Urine Bilirubin Negative (Negative) Urine Urobilinogen <2.0 (<2.0) mg/dL Ur Leukocyte Esterase Moderate H (Negative) Urine RBC 23 H (0-5) /hpf Urine WBC 106 H (0-5) /hpf Ur Squamous Epith Cells 1 (0-4) /hpf Urine Bacteria Moderate H (None) /hpf Hyaline Casts 48 H (0-2) /lpf Granular Casts 11 (0) /lpf Urine Mucus Rare H (None) /hpf Urine Opiates Screen Not Detected (NotDetected) Ur Oxycodone Screen Not Detected (NotDetected) Urine Methadone Screen Not Detected (NotDetected) Ur Propoxyphene Screen Not Detected (NotDetected) Ur Barbiturates Screen Not Detected (NotDetected) U Tricyclic Antidepress Not Detected (NotDetected) Ur Phencyclidine Scrn Not Detected (NotDetected) Ur Amphetamines Screen Not Detected (NotDetected) U Methamphetamines Scrn Not Detected (NotDetected) U Benzodiazepines Scrn Not Detected (NotDetected) Urine Cocaine Screen Not Detected (NotDetected) U Marijuana (THC) Screen Detected H (NotDetected) Serum Alcohol mg/dL Acetone, Qual (Negative) Critical Care Time Critical Care Time: Yes Total Critical Care Time: 31 <Davidson Hinton - Last Filed: 08/19/16 21:38> Disposition <James Yeh - Last Filed: 08/19/16 18:33> <Davidson Hinton - Last Filed: 08/19/16 21:38> Clinical Impression: UTI (urinary tract infection), Nausea & vomiting, Hypertensive urgency Disposition: HOME SELF-CARE Condition: Stable Instructions: Acute Nausea and Vomiting (ED), Urinary Tract Infection in Men ( ED) Additional Instructions: Please follow-up with primary care physician Saturday. Return for not tolerating fluids, fevers, worsening or change in symptoms or other concerns. Prescriptions: Nitrofurantoin Monohyd/M-Cryst [Macrobid] 100 mg PO Q12HR #20 cap Referrals: Myron Bailey DO [Primary Care Provider] - 1-2 days
[2016-08-19] MEDS ORDERED: LORazepam 2 MG/ML SYRINGE IV STA (19:00)
[2016-08-19 19:34] LABS: VBG PH 7.4 (7.31-7.41)
[2016-08-19 19:40] LABS: Appearance,Urine Cloudy (Clear); Bacteria,Urine Moderate /hpf; Bilirubin,Urine Negative (Negative); Glucose,Urine (UA) 4+ (Negative); Granular Casts,Urine 11 /lpf (0); Ketones,Urine Negative (Negative); Leukocyte Esterase,Urine Moderate (Negative); Mucus,Urine Rare /hpf; Nitrite,Urine Negative (Negative); Particle Count 11446; Protein,Urine 3+ (Negative); RBC,Urine 23 /hpf (0-5); Specific Gravity,Urine 1.006 (1.001-1.035); Squamous Epithelial Cell,Urine 1 /hpf (0-4); UA Billing (MACRO vs. MICRO) MICRO; Urobilinogen,Urine <2.0 mg/dL (<2.0); WBC,Urine 106 /hpf (0-5)
[2016-08-19 19:41] LABS: Basophils % (A) 0 %; CH 28.2; CHCM 32.4; Eosinophils # (A) 0.1 k/uL (0-0.7); Eosinophils % (A) 1 %; HCT 32.3 % (39.0-53.0); HDW 2.41; HGB 10.2 gm/dL (13.0-17.5); Luc # (Auto) 0.14; Luc % (Auto) 2; Lymphocytes # (A) 1.1 k/uL (1.0-4.8); Lymphocytes % (A) 14 %; MCH 27.5 pg (25.0-35.0); MCHC 31.4 g/dL (31.0-37.0); MCV 87.4 fL (80.0-100.0); Mean Platelet Volume 7.7; Monocytes # (A) 0.5 k/uL (0-1.0); Monocytes % (A) 6 %; Neutrophils % (A) 76 %; RDW 13.2 % (11.5-15.5); WBC 7.9 k/uL (3.8-10.6); WBC (Perox) 8.24
[2016-08-19 19:52] LABS: ALT 34 U/L (21-72); AST 24 U/L (17-59); Alcohol <10 mg/dL; Alkaline Phosphatase 129 U/L (38-126); Amylase 84 U/L (30-110); Anion Gap 10 mmol/L; Blood Urea Nitrogen 28 mg/dL (9-20); Calcium 8.6 mg/dL (8.4-10.2); Carbon Dioxide 25 mmol/L (22-30); Chloride 103 mmol/L (98-107); Glucose 272 mg/dL (74-99); Non-African American GFR(MDRD) 24 (>60 ml/min/1.73 sqM); Phosphorous 4.2 mg/dL (2.5-4.5); Potassium 4.4 mmol/L (3.5-5.1); Sodium 138 mmol/L (137-145); Total Bilirubin 0.7 mg/dL (0.2-1.3); Total Protein 5.8 g/dL (6.3-8.2)
[2016-08-19] MEDS ORDERED: LABETALOL SYRINGE 5 MG/ML IVP STA ×2 (20:12→21:07)
[2016-08-19] MEDS ORDERED: ENALAPRILAT 1.25 MG/ML 1 ML VIAL IVP STA (20:12)
[2016-08-19 21:45] VITALS: BP 188/99; PULSE 105; RESP 18; TEMP 97.1
== END 2016-08-19 21:44 | disposition home or self-care (01) ==
LOC: EC 17:28
DX: N39.0 Urinary tract infection, site not specified (principal); I16.0 Hypertensive urgency; R11.2 Nausea with vomiting, unspecified; E11.40 Type 2 diabetes mellitus with diabetic neuropathy, unspecified; I12.9 Hypertensive chronic kidney disease with stage 1 through stage 4 chronic kidney disease, or unspecified chronic kidney disease; N18.3 Chronic kidney disease, stage 3 (moderate); K21.9 Gastro-esophageal reflux disease without esophagitis; F32.9 Major depressive disorder, single episode, unspecified; F41.9 Anxiety disorder, unspecified; F12.90 Cannabis use, unspecified, uncomplicated; Z87.891 Personal history of nicotine dependence; Z86.14 Personal history of Methicillin resistant Staphylococcus aureus infection; Z79.4 Long term (current) use of insulin; Z79.899 Other long term (current) drug therapy
CPT/HCPCS: 99291; 96374; 96375 ×6; 96376; 96361 ×2; 36415; 80053; 82150; 82550; 82553; 82803; 82009; 83605; 83690; 84100; 85025; 81001; 80306; 80320; 87086; J2060; J2270; J1200; J2405; C9113

== ENCOUNTER 2016-08-21 10:28 | Emergency (ER) | payer OTHER ==
[2016-08-21] MEDS ORDERED: ONDANSETRON 4 MG/2 ML VIAL IVP STA (10:47)
[2016-08-21] MEDS ORDERED: PANTOPRAZOLE 40 MG/10 ML VIAL IVP STA (10:47)
[2016-08-21] MEDS ORDERED: SODIUM CHLORIDE 0.9% 500 ML IV STA (10:47)
[2016-08-21] MEDS ORDERED: SODIUM CHLORIDE 0.9% 1,000 ML IV STA (10:47)
--- NOTE | 2016-08-21 10:58 | ED ---
General Adult HPI - General Chief complaint: Abdominal Pain Stated complaint: Abd.pain Time Seen by Provider: 08/21/16 10:30 Source: patient, RN notes reviewed Mode of arrival: ambulatory Limitations: no limitations - History of Present Illness Initial comments: This is a 25-year-old male who has past medical history significant for diabetes and chronic abdominal pain. Patient also has gastroparesis. Patient is well-known to the emergency department. He was here just on Saturday. Patient states he was vomiting all day for the last 4 days. Patient states the pain in the abdomen as diffuse and he like something for pain and the vomiting under control. Patient denies any fever or chills. Patient denies any headache patient denies numbness weakness. Patient denies lightheadedness dizziness or near syncopal episode. Patient denies any chest pain difficulty breathing or shortness of breath. When I entered the room the patient does not appear any distress however when I started talking to him he starts moaning and groaning and asking for pain medication. - Related Data Home Medications Medication Instructions Recorded Confirmed Insulin Glargine [Lantus] 42 unit SQ HS 06/06/15 08/21/16 buPROPion SR [Wellbutrin SR] 150 mg PO BID 06/18/15 08/21/16 Pantoprazole [Protonix] 40 mg PO AC-BRKFST 10/26/15 08/21/16 Losartan [Cozaar] 50 mg PO DAILY 05/04/16 08/21/16 amLODIPine [Norvasc] 5 mg PO DAILY 05/04/16 08/21/16 Insulin Aspart [NovoLOG] See Protocol SQ AC-TID PRN 05/28/16 08/21/16 Mag Hydrox/Al Hydrox/Simeth 30 ml PO DAILY PRN 06/28/16 08/21/16 [Maalox] Sertraline [Zoloft] 50 mg PO DAILY 07/21/16 08/21/16 Previous Rx's Medication Instructions Recorded Metoprolol Tartrate [Lopressor] 100 mg PO BID #60 tab 07/16/15 Calcium Carbonate [Tums] 1,000 mg PO TID PRN #0 chew 05/07/16 Hydrocodone/Acetaminophen [[place] 1 tab PO Q4H PRN #30 tab 07/03/16 10-325] Metoclopramide HCl [Reglan] 5 mg PO BID #30 tablet 07/03/16 Ondansetron Odt [Zofran ODT] 4 mg PO Q8HR PRN #15 tab 08/03/16 Nitrofurantoin Monohyd/M-Cryst 100 mg PO Q12HR #20 cap 08/19/16 [Macrobid] Allergies Allergy/AdvReac Type Severity Reaction Status Date / Time No Known Allergies Allergy Verified 08/21/16 11:05 Review of Systems ROS Statement: Those systems with pertinent positive or pertinent negative responses have been documented in the HPI. ROS Other: All systems not noted in ROS Statement are negative. Past Medical History Past Medical History: Diabetes Mellitus, GERD/Reflux, Hypertension, Renal Disease Additional Past Medical History / Comment(s): IDDM, GASTROPARESIS, gastritis, esophagitis, DKA episodes, hiatal hernia, as child had seizure r/t high fever, acute pancreatits(idiopathic) in july 2015, chronic kidney disease stage III , L leg neuropathy, migraines. History of Any Multi-Drug Resistant Organisms: MRSA Date of last positivie culture/infection: MDRO Source:: CHIN/ Rt leg Past Surgical History: Cholecystectomy, Orthopedic Surgery, Tonsillectomy Additional Past Surgical History / Comment(s): LEFT ELBOW pinned, egd's w/ bx's last done 05-30-16. Past Anesthesia/Blood Transfusion Reactions: No Reported Reaction Past Psychological History: ADD/ADHD, Anxiety, Depression Additional Psychological History / Comment(s): Pt resides with his mother. He is independent. Smoking Status: Former smoker Past Alcohol Use History: None Reported Additional Past Alcohol Use History / Comment(s): Pt states he started smoking in 2006 and quit in 2011 Past Drug Use History: Marijuana Additional Drug Use History / Comment(s): pt states smokes marijuana a couple times per month - Past Family History Mother Family Medical History: Diabetes Mellitus Additional Family Medical History / Comment(s): heart problems-(pt not sure what they were) Father Family Medical History: Diabetes Mellitus General Exam - General Exam Comments Initial Comments: GENERAL: Patient is well-developed and well-nourished. Patient is nontoxic and well- hydrated and is in mild distress but no distress when I look in on him and he doesn't know and watching.. ENT: Neck is soft and supple. No significant lymphadenopathy is noted. Oropharynx is clear. Moist mucous membranes. Neck has full range of motion without eliciting any pain. EYES: The sclera were anicteric and conjunctiva were pink and moist. Extraocular movements were intact and pupils were equal round and reactive to light. Eyelids were unremarkable. PULMONARY: Unlabored respirations. Good breath sounds bilaterally. No audible rales rhonchi or wheezing was noted. CARDIOVASCULAR: There is a regular rate and rhythm without any murmurs gallops or rubs. ABDOMEN: Soft and nontender with normal bowel sounds. No palpable organomegaly was noted. There is no palpable pulsatile mass. I found no area of tenderness SKIN: Skin is clear with no lesions or rashes and otherwise unremarkable. NEUROLOGIC: Patient is alert and oriented x3. Cranial nerves II through XII are grossly intact. Motor and sensory are also intact. Normal speech, volume and content. Symmetrical smile. MUSCULOSKELETAL: Normal extremities with adequate strength and full range of motion. LYMPHATICS: No significant lymphadenopathy is noted PSYCHIATRIC: Normal psychiatric evaluation. Limitations: no limitations Course Vital Signs 08/21/16 08/21/16 08/21/16 10:33 10:45 11:18 Temperature 98.2 F Pulse Rate 87 Respiratory 18 Rate Blood Pressure 226/110 235/114 232/110 O2 Sat by Pulse 100 Oximetry 08/21/16 08/21/16 08/21/16 12:13 12:29 13:00 Temperature 98.3 F Pulse Rate 104 H 104 H Respiratory 26 H 24 Rate Blood Pressure 211/96 197/93 194/127 O2 Sat by Pulse 99 97 Oximetry Medical Decision Making - Medical Decision Making I will back in the room to discuss the patient's results with him he wanted pain medicine I told him that we have found no reason at this point time to give him any pain medicine I told him we will continue working to get his blood pressure down. Patient states he didn't want to wait to get his blood pressure down he wanted to leave immediately so we signed him out AMA and the patient understood the risks of signing out AGAINST MEDICAL ADVICE. - Lab Data Result diagrams: 08/21/16 11:20 08/21/16 11:20 Lab Results 08/21/16 08/21/16 08/21/16 Range/Units 11:20 11:20 12:19 WBC 6.9 (3.8-10.6) k/uL RBC 3.73 L (4.30-5.90) m/uL Hgb 10.2 L (13.0-17.5) gm/dL Hct 32.2 L (39.0-53.0) % MCV 86.2 (80.0-100.0) fL MCH 27.4 (25.0-35.0) pg MCHC 31.8 (31.0-37.0) g/dL RDW 13.0 (11.5-15.5) % Plt Count 286 (150-450) k/uL Neutrophils % 71 % Lymphocytes % 17 % Monocytes % 6 % Eosinophils % 3 % Basophils % 0 % Neutrophils # 4.9 (1.3-7.7) k/uL Lymphocytes # 1.2 (1.0-4.8) k/uL Monocytes # 0.4 (0-1.0) k/uL Eosinophils # 0.2 (0-0.7) k/uL Basophils # 0.0 (0-0.2) k/uL Sodium 140 (137-145) mmol/L Potassium 3.6 (3.5-5.1) mmol/L Chloride 104 (98-107) mmol/L Carbon Dioxide 27 (22-30) mmol/L Anion Gap 9 mmol/L BUN 25 H (9-20) mg/dL Creatinine 3.17 H (0.66-1.25) mg/dL Est GFR (MDRD) Af Amer 29 (>60 ml/min/1.73 sqM) Est GFR (MDRD) Non-Af 24 (>60 ml/min/1.73 sqM) Glucose 137 H (74-99) mg/dL Calcium 8.7 (8.4-10.2) mg/dL Total Bilirubin 0.7 (0.2-1.3) mg/dL AST 25 (17-59) U/L ALT 30 (21-72) U/L Alkaline Phosphatase 133 H (38-126) U/L Total Protein 6.1 L (6.3-8.2) g/dL Albumin 2.9 L (3.5-5.0) g/dL Amylase 69 (30-110) U/L Lipase 24 (23-300) U/L Urine Color Light Yellow Urine Appearance Clear (Clear) Urine pH 8.0 (5.0-8.0) Ur Specific [place] 1.006 (1.001-1.035) Urine Protein 3+ H (Negative) Urine Glucose (UA) 1+ H (Negative) Urine Ketones Negative (Negative) Urine Blood Small H (Negative) Urine Nitrate Negative (Negative) Urine Bilirubin Negative (Negative) Urine Urobilinogen <2.0 (<2.0) mg/dL Ur Leukocyte Esterase Negative (Negative) Urine RBC 10 H (0-5) /hpf Urine WBC 8 H (0-5) /hpf Ur Squamous Epith Cells <1 (0-4) /hpf Urine Bacteria Rare H (None) /hpf Urine Mucus Rare H (None) /hpf Acetone, Qual Negative (Negative) Disposition Clinical Impression: Chronic abdominal pain, Hypertension Disposition: Left Against Medical Advice Instructions: Abdominal Pain (ED) Referrals: Myron Bailey DO [Primary Care Provider] - 1-2 days Time of Disposition: 13:14
[2016-08-21] MEDS ORDERED: hydrALAZINE HCL 20 MG/ML 1 ML VIAL IVP STA (11:22)
[2016-08-21 11:42] LABS: Basophils % (A) 0 %; CH 27.7; CHCM 32.3; Eosinophils # (A) 0.2 k/uL (0-0.7); Eosinophils % (A) 3 %; HCT 32.2 % (39.0-53.0); HDW 2.47; HGB 10.2 gm/dL (13.0-17.5); Luc # (Auto) 0.17; Luc % (Auto) 2; Lymphocytes # (A) 1.2 k/uL (1.0-4.8); Lymphocytes % (A) 17 %; MCH 27.4 pg (25.0-35.0); MCHC 31.8 g/dL (31.0-37.0); MCV 86.2 fL (80.0-100.0); Mean Platelet Volume 6.4; Monocytes # (A) 0.4 k/uL (0-1.0); Monocytes % (A) 6 %; Neutrophils # (A) 4.9 k/uL (1.3-7.7); Neutrophils % (A) 71 %; RBC 3.73 m/uL (4.30-5.90); WBC 6.9 k/uL (3.8-10.6); WBC (Perox) 7.19
[2016-08-21 11:56] LABS: ALT 30 U/L (21-72); AST 25 U/L (17-59); Alkaline Phosphatase 133 U/L (38-126); Amylase 69 U/L (30-110); Anion Gap 9 mmol/L; Blood Urea Nitrogen 25 mg/dL (9-20); Calcium 8.7 mg/dL (8.4-10.2); Carbon Dioxide 27 mmol/L (22-30); Chloride 104 mmol/L (98-107); Glucose 137 mg/dL (74-99); Non-African American GFR(MDRD) 24 (>60 ml/min/1.73 sqM); Potassium 3.6 mmol/L (3.5-5.1); Sodium 140 mmol/L (137-145); Total Bilirubin 0.7 mg/dL (0.2-1.3); Total Protein 6.1 g/dL (6.3-8.2)
[2016-08-21 12:38] LABS: Appearance,Urine Clear (Clear); Bacteria,Urine Rare /hpf; Bilirubin,Urine Negative (Negative); Glucose,Urine (UA) 1+ (Negative); Ketones,Urine Negative (Negative); Leukocyte Esterase,Urine Negative (Negative); Mucus,Urine Rare /hpf; Nitrite,Urine Negative (Negative); Particle Count 1966; Protein,Urine 3+ (Negative); RBC,Urine 10 /hpf (0-5); Specific Gravity,Urine 1.006 (1.001-1.035); Squamous Epithelial Cell,Urine <1 /hpf (0-4); UA Billing (MACRO vs. MICRO) MICRO; Urobilinogen,Urine <2.0 mg/dL (<2.0); WBC,Urine 8 /hpf (0-5)
[2016-08-21 13:26] VITALS: BP 196/88; PULSE 114; RESP 20; TEMP 97.4
== END 2016-08-21 13:32 | disposition left against medical advice (07) ==
LOC: EC 10:28
DX: I12.9 Hypertensive chronic kidney disease with stage 1 through stage 4 chronic kidney disease, or unspecified chronic kidney disease (principal); R10.9 Unspecified abdominal pain; G89.29 Other chronic pain; N18.3 Chronic kidney disease, stage 3 (moderate); E11.40 Type 2 diabetes mellitus with diabetic neuropathy, unspecified; K21.9 Gastro-esophageal reflux disease without esophagitis; F32.9 Major depressive disorder, single episode, unspecified; F12.90 Cannabis use, unspecified, uncomplicated; F41.9 Anxiety disorder, unspecified; Z87.891 Personal history of nicotine dependence; Z79.4 Long term (current) use of insulin; Z79.899 Other long term (current) drug therapy; Z87.19 Personal history of other diseases of the digestive system; Z86.14 Personal history of Methicillin resistant Staphylococcus aureus infection
CPT/HCPCS: 99283; 96374; 96375 ×2; 36415; 80053; 82150; 82009; 83690; 85025; 81001; J0360; J2405; C9113

== ENCOUNTER 2016-10-16 17:25 | Emergency (ER) | payer OTHER ==
[2016-10-16] MEDS ORDERED: SODIUM CHLORIDE 0.9% 1,000 ML IV STA (18:24)
[2016-10-16] MEDS ORDERED: SODIUM CHLORIDE 0.9% 500 ML IV STA (18:24)
[2016-10-16] MEDS ORDERED: HYDROmorphone 1 MG/ML 1 ML SYRINGE IVP STA (18:24)
[2016-10-16] MEDS ORDERED: ONDANSETRON 4 MG/2 ML VIAL IVP STA (18:24)
--- NOTE | 2016-10-16 18:30 | ED ---
General Adult HPI - General Chief complaint: Nausea/Vomiting/Diarrhea Stated complaint: vomiting Time Seen by Provider: 10/16/16 18:17 Source: patient, family, RN notes reviewed, old records reviewed Mode of arrival: ambulatory Limitations: no limitations - History of Present Illness Initial comments: Chief complaint and history of present illness a 25-year-old male with complaint of vomiting and diarrhea. Patient was been ongoing for 2 days. The patient is insulin-dependent diabetic and has had ketoacidosis in the past. He states he is not thickening and some but is not taking any food in. He had dialysis yesterday. Past month she's been doing hemodialysis. Mild abdominal discomfort. Again patient has chronic problems with vomiting, gastroparesis. - Related Data Home Medications Medication Instructions Recorded Confirmed Insulin Glargine [Lantus] 18 unit SQ HS 06/06/15 10/16/16 buPROPion SR [Wellbutrin SR] 150 mg PO BID 06/18/15 10/16/16 amLODIPine [Norvasc] 5 mg PO DAILY 05/04/16 10/16/16 INSULIN LISPRO (HumaLOG) [HumaLOG] 4 units SQ AC-TID 10/16/16 10/16/16 Lisinopril [Zestril] 20 mg PO BID 10/16/16 10/16/16 Metoclopramide HCl [Reglan] 5 mg PO AC-TID 10/16/16 10/16/16 Ranitidine HCl [Zantac] 150 mg PO DAILY 10/16/16 10/16/16 Previous Rx's Medication Instructions Recorded Metoprolol Tartrate [Lopressor] 100 mg PO BID #60 tab 07/16/15 Ondansetron Odt [Zofran ODT] 4 mg PO Q8HR PRN #15 tab 08/03/16 Hydrocodone/Acetaminophen [[place] 1 each PO Q6HR PRN #10 tab 10/16/16 5-325] Allergies Allergy/AdvReac Type Severity Reaction Status Date / Time No Known Allergies Allergy Verified 10/16/16 18:34 Review of Systems ROS Statement: Those systems with pertinent positive or pertinent negative responses have been documented in the HPI. Review of systems no visual acuity changes or headache no chest pain or shortness of breath he has abdominal cramps area and diarrhea vomiting. Twice today and 8 times yesterday. No neuro deficits. All systems were otherwise reviewed. Past medical problems significant for insulin diabetes mellitus, he is currently on hemodialysis for the past month and states is helping him better than before. He's had refluxing gastro-paresis with cyclical vomiting syndrome. History of hypertension as noted above chronic renal failure. Surgeries pulse 60, elbow pinning, tonsillectomy and a [employer] shunt for dialysis. Family history heart disease diabetes. Denies smoking denies ALLERGIES denies drinking. ROS Other: All systems not noted in ROS Statement are negative. Past Medical History Past Medical History: Diabetes Mellitus, GERD/Reflux, Hypertension, Renal Disease Additional Past Medical History / Comment(s): IDDM, GASTROPARESIS, gastritis, esophagitis, DKA episodes, hiatal hernia, as child had seizure r/t high fever, acute pancreatits(idiopathic) in july 2015, chronic kidney disease stage III , L leg neuropathy, migraines. History of Any Multi-Drug Resistant Organisms: MRSA Date of last positivie culture/infection: MDRO Source:: CHIN/ Rt leg Past Surgical History: Cholecystectomy, Orthopedic Surgery, Tonsillectomy Additional Past Surgical History / Comment(s): LEFT ELBOW pinned, egd's w/ bx's last done 05-30-16. Past Anesthesia/Blood Transfusion Reactions: No Reported Reaction Past Psychological History: ADD/ADHD, Anxiety, Depression Additional Psychological History / Comment(s): Pt resides with his mother. He is independent. Smoking Status: Former smoker Past Alcohol Use History: None Reported Additional Past Alcohol Use History / Comment(s): Pt states he started smoking in 2006 and quit in 2011 Past Drug Use History: Marijuana Additional Drug Use History / Comment(s): pt states smokes marijuana a couple times per month - Past Family History Mother Family Medical History: Diabetes Mellitus Additional Family Medical History / Comment(s): heart problems-(pt not sure what they were) Father Family Medical History: Diabetes Mellitus General Exam - General Exam Comments Initial Comments: General: The patient is awake and alert, in no distress, and does not appear acutely ill. States had vomiting after 10 times with past 2 days. History of insulin- dependent diabetes mellitus and gastroparesis with cyclical vomiting syndrome. Vital signs shows temperature 99.5 pulse 96 referred rate 20 pulse ox 99% room air blood pressure 181/125. Eye: Pupils are equal, round and reactive to light, extra-ocular movements are intact ; there is normal conjunctiva bilaterally. No signs of icterus. Ears, nose, mouth and throat: There are moist mucous membranes and no oral lesions. Neck: The neck is supple, there is no tenderness . Cardiovascular: There is a regular rate and rhythm. No murmur, rub or gallop is appreciated. Respiratory: Lungs are clear to auscultation, respirations are non-labored, breath sounds are equal. No wheezes, stridor, rales, or rhonchi. Gastrointestinal: Soft, non-distended, mildly tender abdomen no rebound or referred pain normal active bowel sounds. Back: No back pain Musculoskeletal: Normal ROM, no tenderness, There is no pedal edema. There is no calf tenderness or swelling. Sensation intact. Neurological: No complaint of any neuro deficits. No skin rashes. Limitations: no limitations Course Vital Signs 10/16/16 17:42 Temperature 99.5 F Pulse Rate 96 Respiratory 20 Rate Blood Pressure 181/125 O2 Sat by Pulse 99 Oximetry Medical Decision Making - Medical Decision Making Vital decision making. Multiple attempts to obtain a peripheral IV were made but none were successful including the nurse [employer] consultant. The patient was given the option of an external jugular IV but declined. Stating is feeling better. While the try to see if he keep fluids down when she did include including a drink. The patient's reports that he does want to go home and follow-up with family physician. No nausea no vomiting in emergency room patient actually looks quite good. He did state that he has run out of his Arimo which he normally takes when he has abdominal pain. Disposition Clinical Impression: Nausea vomiting and diarrhea Disposition: HOME SELF-CARE Condition: Good Instructions: Acute Nausea and Vomiting (ED), Acute Diarrhea (ED) Additional Instructions: Follow-up with family physician. Use Zofran for nausea vomiting advance her diet. Check his sugar regularly. Use Arimo as directed Prescriptions: Hydrocodone/Acetaminophen [[place] 5-325] 1 each PO Q6HR PRN #10 tab PRN Reason: Pain Time of Disposition: 22:15
[2016-10-16] MEDS ORDERED: ONDANSETRON 4 MG TAB PO STA (20:16)
[2016-10-16] MEDS ORDERED: HYDROmorphone 1 MG/ML 1 ML SYRINGE IM STA (20:16)
--- NOTE | 2016-10-16 21:07 | XR ---
EXAMINATION TYPE: XR KUB DATE OF EXAM: 10/16/2016 9:02 PM COMPARISON: 07/04/2016 HISTORY: Nausea and vomiting TECHNIQUE: 2 views FINDINGS: There is no sign of intestinal obstruction or pneumoperitoneum. Fecal pattern is normal. Th ere are clips from cholecystectomy. Lung bases are clear. IMPRESSION: Nonacute abdomen. No change.
[2016-10-16 22:25] VITALS: RESP 18
[2016-10-16 22:27] VITALS: BP 175/89; PULSE 82; TEMP 97.8
== END 2016-10-16 22:20 | disposition home or self-care (01) ==
LOC: EC 17:25
DX: R11.2 Nausea with vomiting, unspecified (principal); R19.7 Diarrhea, unspecified; R10.9 Unspecified abdominal pain; K21.9 Gastro-esophageal reflux disease without esophagitis; I10 Essential (primary) hypertension; E11.40 Type 2 diabetes mellitus with diabetic neuropathy, unspecified; E11.22 Type 2 diabetes mellitus with diabetic chronic kidney disease; N18.3 Chronic kidney disease, stage 3 (moderate); Z87.891 Personal history of nicotine dependence; Z79.4 Long term (current) use of insulin; Z79.899 Other long term (current) drug therapy
CPT/HCPCS: 74000; 99284; 96372; J1170

== ENCOUNTER 2016-10-17 13:21 | Emergency (ER) | payer OTHER ==
[2016-10-17 14:39] VITALS: TEMP 99.6
[2016-10-17] MEDS ORDERED: ONDANSETRON 4 MG/2 ML VIAL IVP STA (15:45)
[2016-10-17] MEDS ORDERED: HYDROmorphone 1 MG/ML 1 ML SYRINGE IVP STA (15:45)
--- NOTE | 2016-10-17 15:50 | ED ---
General Adult HPI - General Chief complaint: Abdominal Pain Stated complaint: Abd Pain Time Seen by Provider: 10/17/16 15:41 Source: patient, family, RN notes reviewed, old records reviewed Mode of arrival: wheelchair Limitations: no limitations - History of Present Illness Initial comments: 25-year-old male with history of gastroparesis, chronic abdominal pain, hypertension, insulin-dependent diabetes, chronic kidney disease presenting for abdominal pain and nausea and vomiting. Patient states he was seen here yesterday for similar symptoms. He states he was given medication that time and felt better and went home. He states that his pain is been consistent with his normal chronic levels. However he has had nausea and vomiting today and feels he is unable to tolerate any food or drink. He did not try taking a Zofran today because "I knew if I put that pill under my tongue it would make me throw up." States he's not been able to tolerate his other medications as well. He states he was recently started on dialysis few weeks ago. He missed his dialysis treatment today because of how he is feeling. He denies chest pain or shortness breath. He denies any fevers or chills. - Related Data Home Medications Medication Instructions Recorded Confirmed Insulin Glargine [Lantus] 18 unit SQ HS 06/06/15 10/17/16 buPROPion SR [Wellbutrin SR] 150 mg PO BID 06/18/15 10/17/16 amLODIPine [Norvasc] 5 mg PO DAILY 05/04/16 10/17/16 INSULIN LISPRO (HumaLOG) [HumaLOG] 4 units SQ AC-TID 10/16/16 10/17/16 Lisinopril [Zestril] 20 mg PO BID 10/16/16 10/17/16 Metoclopramide HCl [Reglan] 5 mg PO AC-TID 10/16/16 10/17/16 Ranitidine HCl [Zantac] 150 mg PO DAILY 10/16/16 10/17/16 Hydrocodone/Acetaminophen [[place] 1 tab PO Q6HR PRN 10/17/16 10/17/16 5-325] Previous Rx's Medication Instructions Recorded Metoprolol Tartrate [Lopressor] 100 mg PO BID #60 tab 07/16/15 Ondansetron Odt [Zofran ODT] 4 mg PO Q8HR PRN #15 tab 08/03/16 Ondansetron Odt [Zofran Odt] 4 mg PO Q8HR PRN #12 tab 10/17/16 Allergies Allergy/AdvReac Type Severity Reaction Status Date / Time No Known Allergies Allergy Verified 10/17/16 16:32 Review of Systems ROS Statement: Those systems with pertinent positive or pertinent negative responses have been documented in the HPI. ROS Other: All systems not noted in ROS Statement are negative. Past Medical History Past Medical History: Diabetes Mellitus, GERD/Reflux, Hypertension, Renal Disease Additional Past Medical History / Comment(s): IDDM, GASTROPARESIS, gastritis, esophagitis, DKA episodes, hiatal hernia, as child had seizure r/t high fever, acute pancreatits(idiopathic) in july 2015, chronic kidney disease stage III , L leg neuropathy, migraines. History of Any Multi-Drug Resistant Organisms: MRSA Date of last positivie culture/infection: MDRO Source:: CHIN/ Rt leg Past Surgical History: Cholecystectomy, Orthopedic Surgery, Tonsillectomy Additional Past Surgical History / Comment(s): LEFT ELBOW pinned, egd's w/ bx's last done 05-30-16. Past Anesthesia/Blood Transfusion Reactions: No Reported Reaction Past Psychological History: ADD/ADHD, Anxiety, Depression Additional Psychological History / Comment(s): Pt resides with his mother. He is independent. Smoking Status: Former smoker Past Alcohol Use History: None Reported Additional Past Alcohol Use History / Comment(s): Pt states he started smoking in 2006 and quit in 2011 Past Drug Use History: Marijuana Additional Drug Use History / Comment(s): pt states smokes marijuana a couple times per month - Past Family History Mother Family Medical History: Diabetes Mellitus Additional Family Medical History / Comment(s): heart problems-(pt not sure what they were) Father Family Medical History: Diabetes Mellitus General Exam - General Exam Comments Initial Comments: General: Awake and Alert. No acute distress. Does not appear acutely ill. Obese. Eyes: INO, EOM intact. No nystagmus. No scleral icterus. HENT: Atraumatic, normocephalic. Mucous membranes moist. Trachea midline. Neck: The neck is supple, there is no tenderness or JVD. Cardiovascular: Regular rate and rhythm. No murmur, rub, or gallop is appreciated. Distal pulses intact. Right upper chest dialysis catheter. Respiratory: Lungs are clear to auscultation bilaterally. No wheezes, rales, rhonchi. No respiratory distress. Gastrointestinal: Soft, mild diffuse tenderness. No rebound or guarding. Non- distended. No masses or organomegaly noted. No CVA tenderness. Musculoskeletal: No tenderness. Normal ROM. No gross deformity. No strength deficits. Neurological: A&Ox3. CN II-XII grossly intact, There are no obvious motor or sensory deficits. Coordination appears grossly intact. Speech is normal. Skin: Skin is warm and dry and no rashes or lesions are noted. Psychiatric: Cooperative, appropriate mood & affect, normal judgment. Limitations: no limitations Course Vital Signs 10/17/16 10/17/16 10/17/16 14:36 17:30 18:30 Temperature 99.6 F Pulse Rate 104 H 96 100 Respiratory 18 18 20 Rate Blood Pressure 187/95 189/98 187/97 O2 Sat by Pulse 100 99 100 Oximetry 10/17/16 19:54 Temperature Pulse Rate 91 Respiratory 18 Rate Blood Pressure 162/104 O2 Sat by Pulse 100 Oximetry EKG Findings - EKG Comments: EKG Findings:: 15:57. Normal sinus rhythm. Rate 93. NE 144. QRS 102. QT/ QTc 380/472. Normal axis. No STEMI. Normal EKG. Medical Decision Making - Medical Decision Making 25-year-old male with history of multiple medical issues presenting for chronic recurrent abdominal pain. Also with nausea and vomiting today. Patient appears clinically stable on exam. Does have some mild diffuse abdominal pain but no evidence of acute peritonitis. Patient is given IM medications. Unable to establish IV at this time. However lab was able to obtain blood for lab work. Lab work was stable CBC. BMP with evidence of hypokalemia and end-stage renal disease. Potassium replacement given. EKG without a significant changes. Patient reevaluated and states he is feeling significantly improved. Nausea is resolved. Discussed taking Zofran at home, Rx provided as patient states he needs a refill of this. States he will be able to arrange for dialysis tomorrow as he missed today. Does not appear to require inpatient treatment at this is time as he is feeling improved and lab work is relatively stable. Discussed close follow-up with PCP. Discussed concerning signs symptoms for immediate return to the ED. Patient is agreeable with plan and discharge home. - Lab Data Result diagrams: 10/17/16 17:58 10/17/16 17:58 Lab Results 10/17/16 10/17/16 10/17/16 Range/Units 16:18 17:58 17:58 WBC 6.3 (3.8-10.6) k/uL RBC 3.34 L (4.30-5.90) m/uL Hgb 9.2 L (13.0-17.5) gm/dL Hct 28.6 L (39.0-53.0) % MCV 85.6 (80.0-100.0) fL MCH 27.7 (25.0-35.0) pg MCHC 32.3 (31.0-37.0) g/dL RDW 13.1 (11.5-15.5) % Plt Count 338 (150-450) k/uL Neutrophils % 64 % Lymphocytes % 26 % Monocytes % 6 % Eosinophils % 2 % Basophils % 1 % Neutrophils # 4.0 (1.3-7.7) k/uL Lymphocytes # 1.6 (1.0-4.8) k/uL Monocytes # 0.4 (0-1.0) k/uL Eosinophils # 0.2 (0-0.7) k/uL Basophils # 0.0 (0-0.2) k/uL Sodium 135 L (137-145) mmol/L Potassium 2.8 L* (3.5-5.1) mmol/L Chloride 96 L (98-107) mmol/L Carbon Dioxide 33 H (22-30) mmol/L Anion Gap 6 mmol/L BUN 34 H (9-20) mg/dL Creatinine 5.93 H* (0.66-1.25) mg/dL Est GFR (MDRD) Af Amer 14 (>60 ml/min/1.73 sqM) Est GFR (MDRD) Non-Af 12 (>60 ml/min/1.73 sqM) Glucose 190 H (74-99) mg/dL POC Glucose (mg/dL) 201 H (75-99) mg/dL POC Glu [employer] Professor ID Chrissy Millard Calcium 8.3 L (8.4-10.2) mg/dL Magnesium 3.4 H (1.6-2.3) mg/dL Total Bilirubin 0.6 (0.2-1.3) mg/dL AST 24 (17-59) U/L ALT 28 (21-72) U/L Alkaline Phosphatase 142 H (38-126) U/L Total Protein 6.0 L (6.3-8.2) g/dL Albumin 2.7 L (3.5-5.0) g/dL Lipase 34 (23-300) U/L - EKG Data -: EKG Interpreted by Pr EKG shows normal: sinus rhythm Rate: normal - Radiology Data Radiology results: report reviewed, image reviewed Disposition Clinical Impression: Abdominal pain, Nausea and vomiting, ESRD (end stage renal disease), Hypokalemia Disposition: HOME SELF-CARE Condition: Stable Instructions: Abdominal Pain (ED), End Stage Kidney Disease (ED), Acute Nausea and Vomiting (ED) Additional Instructions: Please make sure to call and set up dialysis tomorrow or Saturday. Prescriptions: Ondansetron Odt [Zofran Odt] 4 mg PO Q8HR PRN #12 tab PRN Reason: Nausea Referrals: Myron Bailey DO [Primary Care Provider] - 1-2 days Time of Disposition: 19:42
[2016-10-17] MEDS ORDERED: HYDROmorphone 1 MG/ML 1 ML SYRINGE IM STA ×2 (16:19→18:35)
[2016-10-17] MEDS ORDERED: ONDANSETRON 4 MG/2 ML VIAL IM STA (16:19)
[2016-10-17 16:20] LABS: Glucose,Whole Blood 201 mg/dL (75-99)
--- NOTE | 2016-10-17 16:37 | XR ---
EXAMINATION TYPE: XR KUB DATE OF EXAM: 10/17/2016 4:31 PM CLINICAL HISTORY: Abdominal pain with nausea vomiting and diarrhea. TECHNIQUE: 2 upright KUB images of the abdomen are obtained COMPARISON: Abdominal x-ray from yesterday. FINDINGS: Scattered gas is seen in non-distended small bowel loops. There is interval improvement in gas prominent small bowel loops in the left upper and midabdomen. Gas and fecal material is seen in non-distended colon. Cholecystectomy clips are redemonstrated. No pneumoperitoneum is present. There is partial visualization of dialysis catheter tips in the right atrium redemonstrated. Visualized oss eous structures are intact. IMPRESSION: Overall nonobstructive bowel gas pattern.
[2016-10-17 18:24] LABS: Basophils % (A) 1 %; CH 27.4; CHCM 32.1; Eosinophils # (A) 0.2 k/uL (0-0.7); Eosinophils % (A) 2 %; HCT 28.6 % (39.0-53.0); HDW 2.52; HGB 9.2 gm/dL (13.0-17.5); Luc % (Auto) 2; Lymphocytes # (A) 1.6 k/uL (1.0-4.8); Lymphocytes % (A) 26 %; MCH 27.7 pg (25.0-35.0); MCHC 32.3 g/dL (31.0-37.0); MCV 85.6 fL (80.0-100.0); Mean Platelet Volume 6.7; Monocytes # (A) 0.4 k/uL (0-1.0); Monocytes % (A) 6 %; Neutrophils % (A) 64 %; RBC 3.34 m/uL (4.30-5.90); RDW 13.1 % (11.5-15.5); WBC 6.3 k/uL (3.8-10.6); WBC (Perox) 6.86
[2016-10-17 18:28] LABS: Calcium 8.3 mg/dL (8.4-10.2); Magnesium 3.4 mg/dL (1.6-2.3); Total Bilirubin 0.6 mg/dL (0.2-1.3)
[2016-10-17 18:38] LABS: Potassium 2.8 mmol/L (3.5-5.1)
[2016-10-17] MEDS ORDERED: POTASSIUM CHLORIDE ER 20 MEQ TAB.ER PO STA (18:41)
[2016-10-17 19:54] VITALS: BP 162/104; PULSE 91; RESP 18
== END 2016-10-17 19:56 | disposition home or self-care (01) ==
LOC: EC 13:21
DX: R10.84 Generalized abdominal pain (principal); R11.2 Nausea with vomiting, unspecified; E87.6 Hypokalemia; E66.9 Obesity, unspecified; E11.22 Type 2 diabetes mellitus with diabetic chronic kidney disease; I12.0 Hypertensive chronic kidney disease with stage 5 chronic kidney disease or end stage renal disease; N18.6 End stage renal disease; F32.9 Major depressive disorder, single episode, unspecified; F41.9 Anxiety disorder, unspecified; F90.9 Attention-deficit hyperactivity disorder, unspecified type; Z87.891 Personal history of nicotine dependence; Z79.4 Long term (current) use of insulin; Z79.899 Other long term (current) drug therapy
CPT/HCPCS: 36415; 93005; 80053; 83690; 83735; 85025; 74000; 99284; 96374; 96375; 96372 ×3; J2405; J1170

== ENCOUNTER 2016-10-20 18:02 | Emergency (ER) | payer OTHER ==
[2016-10-20] MEDS ORDERED: HYDROmorphone 1 MG/ML 1 ML SYRINGE IM STA ×2 (18:12→20:42)
[2016-10-20] MEDS ORDERED: METOCLOPRAMIDE 5 MG/ML 2 ML VIAL IM PRN (18:13)
[2016-10-20 19:47] VITALS: TEMP 99.7
--- NOTE | 2016-10-20 20:41 | ED ---
General Adult HPI - General Chief complaint: Abdominal Pain Stated complaint: abd pain Time Seen by Provider: 10/20/16 18:04 Source: patient, family, RN notes reviewed, old records reviewed Mode of arrival: wheelchair Limitations: no limitations - History of Present Illness Initial comments: Chief complaint and history of present illness a 25-year-old male well-known emergency room. He frequently has nausea vomiting. Ration had dialysis yesterday. The patient has had difficulty having IV started. And he does not want femoral stick done nor jugular line started. He does have a line being established for his dialysis and will in the near future have an AV fistula established on his left arm. Patient reports she vomited several times at home probably states when he puts the Zofran tablet in his mouth that causes nausea. He does report that in the past she's used suppositories such as Phenergan and Reglan with good results. Patient has chronic abdominal discomfort. - Related Data Home Medications Medication Instructions Recorded Confirmed Insulin Glargine [Lantus] 18 unit SQ HS 06/06/15 10/20/16 buPROPion SR [Wellbutrin SR] 150 mg PO BID 06/18/15 10/20/16 amLODIPine [Norvasc] 5 mg PO DAILY 05/04/16 10/20/16 INSULIN LISPRO (HumaLOG) [HumaLOG] 4 units SQ AC-TID 10/16/16 10/20/16 Lisinopril [Zestril] 20 mg PO DAILY 10/16/16 10/20/16 Metoclopramide HCl [Reglan] 5 mg PO ACHS 10/16/16 10/20/16 Ranitidine HCl [Zantac] 150 mg PO HS 10/16/16 10/20/16 Hydrocodone/Acetaminophen [[place] 1 tab PO Q6HR PRN 10/17/16 10/20/16 5-325] Potassium Chloride ER [K-Dur 10] 10 meq PO DAILY 10/20/16 10/20/16 Potassium Chloride ER [K-Dur 20] 20 meq PO DAILY 10/20/16 10/20/16 Previous Rx's Medication Instructions Recorded Metoprolol Tartrate [Lopressor] 100 mg PO BID #60 tab 07/16/15 Ondansetron Odt [Zofran ODT] 4 mg PO Q8HR PRN #15 tab 08/03/16 Promethazine Suppository 25 mg RC TID #14 supp 10/20/16 [Phenergan] Allergies Allergy/AdvReac Type Severity Reaction Status Date / Time No Known Allergies Allergy Verified 10/20/16 18:41 Review of Systems ROS Statement: Those systems with pertinent positive or pertinent negative responses have been documented in the HPI. Review of systems no headache or chest pain or shortness of breath. Complains of nausea at home during the time he was here he had no nausea or vomiting. He did receive an milligrams Reglan IM and 1 mg of Dilaudid IM. Multiple temperature again made to obtain labs even lab people cannot obtain a sample. The patient volunteered that he was feeling better with the Dilaudid and Reglan shots. Doesn't want anymore efforts made to draw blood at this time. Patient has X check when he has his dialysis 3 times weekly. He did add supplemental potassium and was able to keep that down. All systems reviewed. Past medical problems diabetes mellitus, GERD, hypertension and currently on hemodialysis. Patient's severe gastroparesis gastritis esophagitis. DKA on several occasions. He has had acute pancreatitis is idiopathic, neuropathy and occasional migraines. Past history includes MRSA. Surgeries include gallbladder, orthopedic surgeon tonsillectomy. He had his elbow pinned. Other psychological issues include ADHD anxiety and depression. Evidently is not having any difficulties now. Quit smoking.ast drug use includes marijuana. I family history diabetes. Patient advised that marijuana use could exacerbate his frequent vomiting issues. ROS Other: All systems not noted in ROS Statement are negative. Past Medical History Past Medical History: Diabetes Mellitus, GERD/Reflux, Hypertension, Renal Disease Additional Past Medical History / Comment(s): IDDM, GASTROPARESIS, gastritis, esophagitis, DKA episodes, hiatal hernia, as child had seizure r/t high fever, acute pancreatits(idiopathic) in july 2015, chronic kidney disease stage III , L leg neuropathy, migraines. History of Any Multi-Drug Resistant Organisms: MRSA Date of last positivie culture/infection: MDRO Source:: CHIN/ Rt leg Past Surgical History: Cholecystectomy, Orthopedic Surgery, Tonsillectomy Additional Past Surgical History / Comment(s): LEFT ELBOW pinned, egd's w/ bx's last done 05-30-16. Past Anesthesia/Blood Transfusion Reactions: No Reported Reaction Past Psychological History: ADD/ADHD, Anxiety, Depression Additional Psychological History / Comment(s): Pt resides with his mother. He is independent. Smoking Status: Former smoker Past Alcohol Use History: None Reported Additional Past Alcohol Use History / Comment(s): Pt states he started smoking in 2006 and quit in 2011 Past Drug Use History: Marijuana Additional Drug Use History / Comment(s): pt states smokes marijuana a couple times per month - Past Family History Mother Family Medical History: Diabetes Mellitus Additional Family Medical History / Comment(s): heart problems-(pt not sure what they were) Father Family Medical History: Diabetes Mellitus General Exam - General Exam Comments Initial Comments: General: The patient is awake and alert, in no distress, and does not appear acutely ill. States he was vomiting at home. Vital signs are temperature 99.7 pulse 97 respiratory rate 18 blood pressure 171 1. The patient was given Catapres. As well as Dilaudid IM and Reglan IM. Eye: Pupils are equal, round and reactive to light, extra-ocular movements are intact ; there is normal conjunctiva bilaterally. No signs of icterus. Ears, nose, mouth and throat: There are moist mucous membranes and no oral lesions. Neck: The neck is supple, there is no tenderness . Cardiovascular: There is a regular rate and rhythm. No murmur, rub or gallop is appreciated. Respiratory: Lungs are clear to auscultation, respirations are non-labored, breath sounds are equal. No wheezes, stridor, rales, or rhonchi. Gastrointestinal: Soft, non-distended, non-tender abdomen without masses or organomegaly noted. There is no rebound or guarding present. No CVA tenderness. Bowel sounds are unremarkable. No nausea or vomiting while in emergency room. Back: There is no tenderness to palpation in the midline. There is no obvious deformity. Musculoskeletal: Normal ROM, no tenderness, There is no pedal edema. There is no calf tenderness or swelling. Sensation intact. Neurological: No neuro deficits. Skin: Skin is warm and dry and no rashes or lesions are noted. Limitations: no limitations Course Vital Signs 10/20/16 10/20/16 18:04 19:30 Temperature 99.1 F 99.7 F H Pulse Rate 100 97 Respiratory 20 18 Rate Blood Pressure 210/110 178/101 O2 Sat by Pulse 98 100 Oximetry Medical Decision Making - Medical Decision Making Medical decision making; the patient states he is feeling better after IM Dilaudid and Reglan. He does not want any more attempts made to start an IV or draw blood. He has stopped vomiting since arrival to emergency room. He states in the past Reglan or Phenergan suppositories worked well to control his nausea and vomiting. The patient has medications at home to take otherwise. He gets his lab work done 3 times weekly when he has his dialysis done. Patient wants to go home at this time. Disposition Clinical Impression: Gastroparesis due to DM Disposition: HOME SELF-CARE Condition: Stable Instructions: Gastroparesis (ED) Additional Instructions: Use Phenergan suppositories 25 mg 1 every 8 hours to control nausea vomiting. Advance fluids. Get your hemodialysis done and x-rays done at that time. Use pain medications as directed. Follow-up with your family doctor Prescriptions: Promethazine Suppository [Phenergan] 25 mg RC TID #14 supp Time of Disposition: 20:48
[2016-10-20] MEDS ORDERED: cloNIDine HCL 0.2 MG TAB PO STA (20:42)
[2016-10-20] MEDS ORDERED: PROMETHAZINE SUPPOSITORY 25 MG SUPP RECTAL STA (20:54)
[2016-10-20 20:58] VITALS: BP 155/89; PULSE 94; RESP 16
== END 2016-10-20 21:28 | disposition home or self-care (01) ==
LOC: EC 18:02
DX: E11.43 Type 2 diabetes mellitus with diabetic autonomic (poly)neuropathy (principal); K31.84 Gastroparesis; R11.2 Nausea with vomiting, unspecified; R10.9 Unspecified abdominal pain; K21.9 Gastro-esophageal reflux disease without esophagitis; I10 Essential (primary) hypertension; E11.22 Type 2 diabetes mellitus with diabetic chronic kidney disease; N18.3 Chronic kidney disease, stage 3 (moderate); F90.9 Attention-deficit hyperactivity disorder, unspecified type; F32.9 Major depressive disorder, single episode, unspecified; F41.9 Anxiety disorder, unspecified; Z87.891 Personal history of nicotine dependence; Z79.4 Long term (current) use of insulin; Z79.899 Other long term (current) drug therapy
CPT/HCPCS: 99284; 96372 ×3; J2765; J1170

== ENCOUNTER 2016-10-26 12:35 | Emergency (ER) | payer OTHER ==
--- NOTE | 2016-10-26 13:32 | ED ---
General Adult HPI - General Chief complaint: Abdominal Pain Stated complaint: NVD, Abd Pain, SOB, Chest Pain Time Seen by Provider: 10/26/16 12:59 Source: patient, RN notes reviewed, old records reviewed Mode of arrival: wheelchair Limitations: no limitations - History of Present Illness Initial comments: Chief complaint and history of present illness a 25-year-old male well-known emergency room for frequent episodes of cyclical vomiting. And recurrent abdominal discomfort. The patient's also on hemodialysis. Reportedly vomited 4 times yesterday had abdominal discomfort today. States he had difficulty taking his medications this morning - Related Data Home Medications Medication Instructions Recorded Confirmed Insulin Glargine [Lantus] 18 unit SQ HS 06/06/15 10/26/16 buPROPion SR [Wellbutrin SR] 150 mg PO BID 06/18/15 10/26/16 amLODIPine [Norvasc] 5 mg PO DAILY 05/04/16 10/26/16 INSULIN LISPRO (HumaLOG) [HumaLOG] 4 units SQ AC-TID 10/16/16 10/26/16 Lisinopril [Zestril] 20 mg PO DAILY 10/16/16 10/26/16 Metoclopramide HCl [Reglan] 5 mg PO TID 10/16/16 10/26/16 Ranitidine HCl [Zantac] 150 mg PO HS 10/16/16 10/26/16 Potassium Chloride ER [K-Dur 20] 20 meq PO DAILY 10/20/16 10/26/16 Ergocalciferol (Vitamin D2) 50,000 unit PO MO 10/26/16 10/26/16 [Vitamin D2] Previous Rx's Medication Instructions Recorded Metoprolol Tartrate [Lopressor] 100 mg PO BID #60 tab 07/16/15 Ondansetron Odt [Zofran ODT] 4 mg PO Q8HR PRN #15 tab 08/03/16 Hydrocodone/Acetaminophen [[place] 1 each PO Q6HR PRN #10 tab 10/26/16 5-325] Allergies Allergy/AdvReac Type Severity Reaction Status Date / Time No Known Allergies Allergy Verified 10/26/16 13:19 Review of Systems ROS Statement: Those systems with pertinent positive or pertinent negative responses have been documented in the HPI. Review of systems no headache or visual acuity changes no chest pain or shortness of breath. He has epigastric discomfort which is recurrent. He has cyclical vomiting. No blood in the vomit. No dark stool. No back pain no neuro deficits. Otherwise alert and oriented. All systems were reviewed. Past medical problems insulin-dependent diabetes, GERD, cyclical vomiting, hypertension, on hemodialysis. Surgeries include cholecystectomy, orthopedic surgery tonsillectomy. He had a left elbow pinned. Family history noncontributory patient denies any ALLERGIES. Nonsmoker nondrinker ROS Other: All systems not noted in ROS Statement are negative. Past Medical History Past Medical History: Diabetes Mellitus, GERD/Reflux, Hypertension, Renal Disease Additional Past Medical History / Comment(s): IDDM, GASTROPARESIS, gastritis, esophagitis, DKA episodes, hiatal hernia, as child had seizure r/t high fever, acute pancreatits(idiopathic) in july 2015, chronic kidney disease stage III , L leg neuropathy, migraines. History of Any Multi-Drug Resistant Organisms: MRSA Date of last positivie culture/infection: MDRO Source:: CHIN/ Rt leg Past Surgical History: Cholecystectomy, Orthopedic Surgery, Tonsillectomy Additional Past Surgical History / Comment(s): LEFT ELBOW pinned, egd's w/ bx's last done 05-30-16. Past Anesthesia/Blood Transfusion Reactions: No Reported Reaction Past Psychological History: ADD/ADHD, Anxiety, Depression Additional Psychological History / Comment(s): Pt resides with his mother. He is independent. Smoking Status: Former smoker Past Alcohol Use History: None Reported Additional Past Alcohol Use History / Comment(s): Pt states he started smoking in 2006 and quit in 2011 Past Drug Use History: Marijuana Additional Drug Use History / Comment(s): pt states smokes marijuana a couple times per month - Past Family History Mother Family Medical History: Diabetes Mellitus Additional Family Medical History / Comment(s): heart problems-(pt not sure what they were) Father Family Medical History: Diabetes Mellitus General Exam - General Exam Comments Initial Comments: General: The patient is awake and alert, complaining of abdominal discomfort was cyclical vomiting. Vital signs shows temperature 98.7 pulse 90 respiratory rate 20 pulse ox on percent room air blood pressure 199 over 1 await. Eye: Pupils are equal, round and reactive to light, extra-ocular movements are intact ; there is normal conjunctiva bilaterally. No signs of icterus. Ears, nose, mouth and throat: There are moist mucous membranes . Neck: The neck is supple, there is no tenderness . Cardiovascular: There is a regular rate and rhythm. No murmur, rub or gallop is appreciated. Respiratory: Lungs are clear to auscultation, respirations are non-labored, breath sounds are equal. No wheezes, stridor, rales, or rhonchi. Gastrointestinal: Soft, non-distended, non-tender abdomen without masses or organomegaly noted. There is no rebound or guarding present. No CVA tenderness. Bowel sounds are unremarkable. Back: There is no tenderness to palpation in the midline. There is no obvious deformity. . Musculoskeletal: Normal ROM, no tenderness, There is no pedal edema. There is no calf tenderness or swelling. Neurological: No complaint of or any evidence of neuro deficits. Skin: Skin is warm and dry and no rashes or lesions are noted. Multiple tattoos Limitations: no limitations Course Vital Signs 10/26/16 10/26/16 10/26/16 12:49 18:00 19:00 Temperature 98.7 F 98.4 F Pulse Rate 90 72 87 Respiratory 20 18 20 Rate Blood Pressure 199/108 234/109 179/99 O2 Sat by Pulse 100 100 96 Oximetry Medical Decision Making - Medical Decision Making Vascular surgeon, Dr. Fox in to see the patient. Active Dominique will provide IV access. After the PICC line was placed in the right arm the patient return emergency room. His labs show white count 7.2 hemoglobin 8.9 hematocrit 27.7 with a potassium 3.1. The patient is taking oral supplements. BUN 35 creatinine 5.7 with a GFR 15. The patient does get hemodialysis. Upon arrival his blood sugar was 349. Acetone negative by exam. Patient was hydrated. Given 5 units of NovoLog subcu. He received Zofran and pain medication. On recheck the patient's blood pressure was elevated. He received hydralazine 10 mg IV push. At this time his blood pressures 169/79. Patient does not have pain, no nausea no vomiting. Arrangements have been made for the patient to have dialysis tomorrow morning at 9 AM. Call to confirm in the morning and be here early to have it done. - Lab Data Result diagrams: 10/26/16 15:47 04/28/17 15:47 Lab Results 10/26/16 10/26/16 10/26/16 Range/Units 15:44 15:47 15:47 WBC 7.2 (3.8-10.6) k/uL RBC 3.26 L (4.30-5.90) m/uL Hgb 8.9 L (13.0-17.5) gm/dL Hct 27.7 L (39.0-53.0) % MCV 85.0 (80.0-100.0) fL MCH 27.3 (25.0-35.0) pg MCHC 32.1 (31.0-37.0) g/dL RDW 13.7 (11.5-15.5) % Plt Count 274 (150-450) k/uL Neutrophils % 72 % Lymphocytes % 17 % Monocytes % 6 % Eosinophils % 1 % Basophils % 1 % Neutrophils # 5.2 (1.3-7.7) k/uL Lymphocytes # 1.2 (1.0-4.8) k/uL Monocytes # 0.4 (0-1.0) k/uL Eosinophils # 0.1 (0-0.7) k/uL Basophils # 0.1 (0-0.2) k/uL Sodium 139 (137-145) mmol/L Potassium 3.1 L (3.5-5.1) mmol/L Chloride 98 (98-107) mmol/L Carbon Dioxide 37 H (22-30) mmol/L Anion Gap 4 mmol/L BUN 35 H (9-20) mg/dL Creatinine 5.70 H* (0.66-1.25) mg/dL Est GFR (MDRD) Af Amer 15 (>60 ml/min/1.73 sqM) Est GFR (MDRD) Non-Af 12 (>60 ml/min/1.73 sqM) Glucose 356 H (74-99) mg/dL POC Glucose (mg/dL) 349 H (75-99) mg/dL POC Glu Solution Director ID Lizzette Hansen Calcium 8.1 L (8.4-10.2) mg/dL Total Bilirubin 0.5 (0.2-1.3) mg/dL AST 20 (17-59) U/L ALT 26 (21-72) U/L Alkaline Phosphatase 127 H (38-126) U/L Total Protein 5.5 L (6.3-8.2) g/dL Albumin 2.6 L (3.5-5.0) g/dL Acetone, Qual Negative (Negative) Disposition Clinical Impression: Cyclical vomiting Disposition: HOME SELF-CARE Condition: Fair Instructions: Acute Nausea and Vomiting (ED) Additional Instructions: Call the number provided and be here on time for dialysis in the morning. Take medications as directed. Prescriptions: Hydrocodone/Acetaminophen [[place] 5-325] 1 each PO Q6HR PRN #10 tab PRN Reason: Pain Time of Disposition: 19:59
[2016-10-26] MEDS ORDERED: LIDOCAINE 2% INJ 20 MG/ML (20 ML MDV) ONE (14:44)
[2016-10-26] MEDS ORDERED: LIDOCAINE 2% (PF) 20 MG/ML 10ML SQ ONE (15:12)
--- NOTE | 2016-10-26 15:38 | IR ---
PICC LINE PLACEMENT: HISTORY: Infection requiring long-term antibiotic therapy PROCEDURE: Ultrasound and fluoroscopic guidance of PICC line placement. COMPLICATIONS: None ANESTHESIA: 1. 1% Lidocaine locally. FINDINGS/TECHNIQUE: The procedure was explained to the patient. The risks, complications, benefits and alternatives were discussed and any questions were answered. Informed consent was obtained. The patient was placed supine on the fluoroscopic table and prepped and draped in the usual sterile [facility] ion. Utilizing a 21 gauge needle and sonographic and fluoroscopic guidance, access in the vein was achieved and there is placement of a 0.018 guidewire. The vein is patent. A 4-F sheath was placed o julien the guidewire. The guidewire and dilator were removed and a 4-F. PICC line was placed through th e sheath with the tip at the level of the SVC. The sheath was removed, the catheter was flushed and sutured into position. The patient was stable throughout the procedure and remained stable upon disc harge from the Department of Radiology. The vein puncture was patent under ultrasound. A calderon scale image was obtained to document patency of the vein punctured. All elements of the maximal barrier technique were utilized. FLUOROSCOPY TIME: 0.4 minute IMPRESSION: Successful PICC line placement under ultrasound and fluoroscopic guidance.
[2016-10-26] MEDS ORDERED: SODIUM CHLORIDE 0.9% 1,000 ML IV ONE (15:41)
[2016-10-26 15:46] LABS: Glucose,Whole Blood 349 mg/dL (75-99)
[2016-10-26] MEDS ORDERED: HYDROmorphone 1 MG/ML 1 ML SYRINGE IVP STA ×2 (15:48→17:38)
[2016-10-26] MEDS ORDERED: ONDANSETRON 4 MG/2 ML VIAL IVP STA ×2 (15:48→17:38)
[2016-10-26 16:00] LABS: Basophils # (A) 0.1 k/uL (0-0.2); Basophils % (A) 1 %; CH 27.5; CHCM 32.5; Eosinophils # (A) 0.1 k/uL (0-0.7); Eosinophils % (A) 1 %; HCT 27.7 % (39.0-53.0); HDW 2.37; HGB 8.9 gm/dL (13.0-17.5); Luc # (Auto) 0.16; Luc % (Auto) 2; Lymphocytes # (A) 1.2 k/uL (1.0-4.8); Lymphocytes % (A) 17 %; MCH 27.3 pg (25.0-35.0); MCHC 32.1 g/dL (31.0-37.0); Mean Platelet Volume 7.2; Monocytes # (A) 0.4 k/uL (0-1.0); Monocytes % (A) 6 %; Neutrophils # (A) 5.2 k/uL (1.3-7.7); Neutrophils % (A) 72 %; RBC 3.26 m/uL (4.30-5.90); RDW 13.7 % (11.5-15.5); WBC 7.2 k/uL (3.8-10.6); WBC (Perox) 7.24
[2016-10-26 16:24] LABS: ALT 26 U/L (21-72); AST 20 U/L (17-59); Alkaline Phosphatase 127 U/L (38-126); Anion Gap 4 mmol/L; Blood Urea Nitrogen 35 mg/dL (9-20); Calcium 8.1 mg/dL (8.4-10.2); Carbon Dioxide 37 mmol/L (22-30); Chloride 98 mmol/L (98-107); Glucose 356 mg/dL (74-99); Potassium 3.1 mmol/L (3.5-5.1); Sodium 139 mmol/L (137-145); Total Bilirubin 0.5 mg/dL (0.2-1.3); Total Protein 5.5 g/dL (6.3-8.2)
[2016-10-26 16:32] LABS: Non-African American GFR(MDRD) 12 (>60 ml/min/1.73 sqM)
[2016-10-26] MEDS ORDERED: INSULN ASP PRT/INSULIN ASPART 100 UNIT/ML 10 ML VIAL SQ ONE (17:37)
[2016-10-26] MEDS ORDERED: hydrALAZINE HCL 20 MG/ML 1 ML VIAL IVP STA (18:36)
[2016-10-26 20:23] VITALS: BP 176/98; PULSE 98; RESP 18; TEMP 97.5
== END 2016-10-26 20:21 | disposition home or self-care (01) ==
LOC: EC 12:35
DX: G43.A0 Cyclical vomiting, in migraine, not intractable (principal); I12.9 Hypertensive chronic kidney disease with stage 1 through stage 4 chronic kidney disease, or unspecified chronic kidney disease; N18.3 Chronic kidney disease, stage 3 (moderate); E11.43 Type 2 diabetes mellitus with diabetic autonomic (poly)neuropathy; K31.84 Gastroparesis; K21.9 Gastro-esophageal reflux disease without esophagitis; F32.9 Major depressive disorder, single episode, unspecified; F12.90 Cannabis use, unspecified, uncomplicated; Z86.14 Personal history of Methicillin resistant Staphylococcus aureus infection; Z87.891 Personal history of nicotine dependence; Z99.2 Dependence on renal dialysis; Z79.4 Long term (current) use of insulin; Z79.899 Other long term (current) drug therapy
CPT/HCPCS: 99284; 96374; 96375 ×2; 96376 ×2; 96372; 96361; 36415; 36569; 76937; 77001; 80053; 82009; 85025; C1751; C1769; J0360; J2001; J2405; J1170

== ENCOUNTER 2016-10-27 12:45 | Observation (INO) | payer OTHER ==
[2016-10-27] MEDS ORDERED: ONDANSETRON 4 MG/2 ML VIAL IVP STA (13:26)
[2016-10-27] MEDS ORDERED: PANTOPRAZOLE 40 MG/10 ML VIAL IVP STA (13:26)
[2016-10-27] MEDS ORDERED: HYDROmorphone 1 MG/ML 1 ML SYRINGE IVP STA ×2 (13:26→14:33)
[2016-10-27] MEDS ORDERED: SODIUM CHLORIDE 0.9% 1,000 ML IV STA (13:26)
[2016-10-27] MEDS ORDERED: hydrALAZINE HCL 20 MG/ML 1 ML VIAL IVP STA ×2 (13:40→14:29)
--- NOTE | 2016-10-27 14:06 | XR ---
EXAMINATION TYPE: XR abdomen 2V DATE OF EXAM: 10/27/2016 2:00 PM CLINICAL HISTORY: Abdominal pain with nausea and vomiting. TECHNIQUE: Supine and upright views of the abdomen are obtained. COMPARISON: Abdominal x-ray October 17, 2016 FINDINGS: Scattered gas is seen in non-distended stomach and small bowel loops. Gas and fecal mater ial is seen in non-distended colon. Cholecystectomy clips are redemonstrated. There is partial visual ization of catheter tips in right atrium redemonstrated. No suspicious calcifications are seen. No pn eumoperitoneum is noted. Visualized osseous structures are intact. IMPRESSION: Overall nonobstructive bowel gas pattern. No significant change from prior.
[2016-10-27 14:13] LABS: Basophils # (A) 0.1 k/uL (0-0.2); Basophils % (A) 1 %; CH 27.7; CHCM 32.3; Eosinophils # (A) 0.1 k/uL (0-0.7); Eosinophils % (A) 1 %; HCT 30.5 % (39.0-53.0); HGB 9.7 gm/dL (13.0-17.5); Luc # (Auto) 0.29; Luc % (Auto) 3; Lymphocytes # (A) 1.8 k/uL (1.0-4.8); Lymphocytes % (A) 21 %; MCH 27.3 pg (25.0-35.0); MCHC 31.6 g/dL (31.0-37.0); MCV 86.2 fL (80.0-100.0); Mean Platelet Volume 6.6; Monocytes # (A) 0.5 k/uL (0-1.0); Monocytes % (A) 6 %; Neutrophils # (A) 5.9 k/uL (1.3-7.7); Neutrophils % (A) 68 %; RBC 3.54 m/uL (4.30-5.90); RDW 13.8 % (11.5-15.5); WBC 8.7 k/uL (3.8-10.6); WBC (Perox) 8.82
--- NOTE | 2016-10-27 14:27 | ED ---
General Adult HPI - General Chief complaint: Abdominal Pain Stated complaint: Abd Pain Time Seen by Provider: 10/27/16 13:16 Source: patient, family, RN notes reviewed, old records reviewed Mode of arrival: wheelchair Limitations: no limitations - History of Present Illness Initial comments: Chief complaint history of present illness is a 25-year-old male well-known emergency room for insulin-dependent diabetes, on hemodialysis and cyclic vomiting. Patient was vomiting at home since last night after leaving the emergency room. Yesterday he had a PICC line placed in his right arm. His posterior go to hemodialysis morning but he stated because he was vomiting he didn't make it. He presents with elevated blood pressure. And vomiting bile recurrent epigastric discomfort - Related Data Home Medications Medication Instructions Recorded Confirmed Insulin Glargine [Lantus] 18 unit SQ HS 06/06/15 10/27/16 buPROPion SR [Wellbutrin SR] 150 mg PO BID 06/18/15 10/27/16 amLODIPine [Norvasc] 5 mg PO DAILY 05/04/16 10/27/16 INSULIN LISPRO (HumaLOG) [HumaLOG] 4 units SQ AC-TID 10/16/16 10/27/16 Lisinopril [Zestril] 20 mg PO DAILY 10/16/16 10/27/16 Metoclopramide HCl [Reglan] 5 mg PO TID 10/16/16 10/27/16 Ranitidine HCl [Zantac] 150 mg PO HS 10/16/16 10/27/16 Potassium Chloride ER [K-Dur 20] 20 meq PO DAILY 10/20/16 10/27/16 Ergocalciferol (Vitamin D2) 50,000 unit PO MO 10/26/16 10/27/16 [Vitamin D2] Hydrocodone/Acetaminophen [[place] 1 tab PO Q6HR PRN 10/27/16 10/27/16 5-325] Previous Rx's Medication Instructions Recorded Metoprolol Tartrate [Lopressor] 100 mg PO BID #60 tab 07/16/15 Ondansetron Odt [Zofran ODT] 4 mg PO Q8HR PRN #15 tab 08/03/16 Allergies Allergy/AdvReac Type Severity Reaction Status Date / Time No Known Allergies Allergy Verified 10/27/16 13:18 Review of Systems ROS Statement: Those systems with pertinent positive or pertinent negative responses have been documented in the HPI. Review of systems no headache no chest pain he has epigastric pain and vomiting bile like material. No blood. No diarrhea. No neuro deficits complained of. All systems are reviewed. Asked medical problems significant for chronic abdominal pain and epigastric discomfort. Insulin-dependent diabetes mellitus, on hemodialysis, GERD, hypertension, gastroparesis and cyclical vomiting as noted above. Surgeries include cholecystectomy, tonsillectomy left elbow surgery. Family history, noncontributory, no known ALLERGIES. ROS Other: All systems not noted in ROS Statement are negative. Past Medical History Past Medical History: Diabetes Mellitus, GERD/Reflux, Hypertension, Renal Disease Additional Past Medical History / Comment(s): IDDM, GASTROPARESIS, gastritis, esophagitis, DKA episodes, hiatal hernia, as child had seizure r/t high fever, acute pancreatits(idiopathic) in july 2015, chronic kidney disease stage III , L leg neuropathy, migraines. History of Any Multi-Drug Resistant Organisms: MRSA Date of last positivie culture/infection: MDRO Source:: CHIN/ Rt leg Past Surgical History: Cholecystectomy, Orthopedic Surgery, Tonsillectomy Additional Past Surgical History / Comment(s): LEFT ELBOW pinned, egd's w/ bx's last done 05-30-16. Past Anesthesia/Blood Transfusion Reactions: No Reported Reaction Past Psychological History: ADD/ADHD, Anxiety, Depression Additional Psychological History / Comment(s): Pt resides with his mother. He is independent. Smoking Status: Former smoker Past Alcohol Use History: None Reported Additional Past Alcohol Use History / Comment(s): Pt states he started smoking in 2006 and quit in 2011 Past Drug Use History: Marijuana Additional Drug Use History / Comment(s): pt states smokes marijuana a couple times per month - Past Family History Mother Family Medical History: Diabetes Mellitus Additional Family Medical History / Comment(s): heart problems-(pt not sure what they were) Father Family Medical History: Diabetes Mellitus General Exam - General Exam Comments Initial Comments: General: The patient is awake and alert, in no distress, and does not appear acutely ill. Patient's been vomiting bile since last night. Blood pressure is elevated. He is unable to go to dialysis today. Temp 97, pulse 68 respiratory rate 18 blood pressure 199 of 106. The patient is having an IV started having receiving hydralazine. Eye: Pupils are equal, round and reactive to light, extra-ocular movements are intact ; there is normal conjunctiva bilaterally. No signs of icterus. Ears, nose, mouth and throat: There are moist mucous membranes and no oral lesions. Neck: The neck is supple, there is no tenderness or JVD. Cardiovascular: There is a regular rate and rhythm. No murmur, rub or gallop is appreciated. Respiratory: Lungs are clear to auscultation, respirations are non-labored, breath sounds are equal. No wheezes, stridor, rales, or rhonchi. Gastrointestinal: Active bowel sounds, epigastric discomfort. But no rebound or referred pain. Back: There is no tenderness to palpation in the midline. There is no obvious deformity. No rashes noted. Musculoskeletal: Normal ROM, no tenderness, There is no pedal edema. There is no calf tenderness or swelling. Sensation intact. Pulses equal bilaterally 2+. Neurological: No complaint of or any evidence of any neuro deficits. Skin: Skin is warm and dry and no rashes or lesions are noted. Multiple tattoos Limitations: no limitations Course Vital Signs 10/27/16 10/27/16 10/27/16 13:05 13:39 14:22 Temperature 99.0 F Pulse Rate 113 H 109 H 120 H Respiratory 22 24 22 Rate Blood Pressure 213/125 229/171 201/93 O2 Sat by Pulse 96 100 99 Oximetry Medical Decision Making - Medical Decision Making Vital decision making patient's white count 8.7 hemoglobin 9.6 hematocrit 30.6. Potassium is 3.0. This is being supplemented through the IV. Also BUN of 34 creatinine 6.18 GFR 13. Glucose 193. Acetone positive. Amylase lipase normal limits. Patient is receiving hydralazine for high blood pressure. I discussed the case with Dr. Hatfield on-call for Dr. Duarte. He recommends IV insulin addition to that which he received subcu. Admitted to [facility] with hydration and contact dialysis for dialysis. - Lab Data Result diagrams: 10/27/16 13:41 10/27/16 13:41 Lab Results 10/27/16 10/27/16 10/27/16 Range/Units 13:41 13:41 13:41 WBC 8.7 (3.8-10.6) k/uL RBC 3.54 L (4.30-5.90) m/uL Hgb 9.7 L (13.0-17.5) gm/dL Hct 30.5 L (39.0-53.0) % MCV 86.2 (80.0-100.0) fL MCH 27.3 (25.0-35.0) pg MCHC 31.6 (31.0-37.0) g/dL RDW 13.8 (11.5-15.5) % Plt Count 283 (150-450) k/uL Neutrophils % 68 % Lymphocytes % 21 % Monocytes % 6 % Eosinophils % 1 % Basophils % 1 % Neutrophils # 5.9 (1.3-7.7) k/uL Lymphocytes # 1.8 (1.0-4.8) k/uL Monocytes # 0.5 (0-1.0) k/uL Eosinophils # 0.1 (0-0.7) k/uL Basophils # 0.1 (0-0.2) k/uL Sodium 140 (137-145) mmol/L Potassium 3.0 L* (3.5-5.1) mmol/L Chloride 98 (98-107) mmol/L Carbon Dioxide 32 H (22-30) mmol/L Anion Gap 10 mmol/L BUN 34 H (9-20) mg/dL Creatinine 6.18 H* (0.66-1.25) mg/dL Est GFR (MDRD) Af Amer 13 (>60 ml/min/1.73 sqM) Est GFR (MDRD) Non-Af 11 (>60 ml/min/1.73 sqM) Glucose 193 H (74-99) mg/dL Plasma Lactic Acid [place] 1.8 (0.7-2.0) mmol/L Calcium 8.6 (8.4-10.2) mg/dL Total Bilirubin 0.8 (0.2-1.3) mg/dL AST 29 (17-59) U/L ALT 32 (21-72) U/L Alkaline Phosphatase 140 H (38-126) U/L Total Protein 6.5 (6.3-8.2) g/dL Albumin 3.0 L (3.5-5.0) g/dL Amylase 105 (30-110) U/L Lipase 195 (23-300) U/L Acetone, Qual (Negative) 10/27/16 Range/Units 13:41 WBC (3.8-10.6) k/uL RBC (4.30-5.90) m/uL Hgb (13.0-17.5) gm/dL Hct (39.0-53.0) % MCV (80.0-100.0) fL MCH (25.0-35.0) pg MCHC (31.0-37.0) g/dL RDW (11.5-15.5) % Plt Count (150-450) k/uL Neutrophils % % Lymphocytes % % Monocytes % % Eosinophils % % Basophils % % Neutrophils # (1.3-7.7) k/uL Lymphocytes # (1.0-4.8) k/uL Monocytes # (0-1.0) k/uL Eosinophils # (0-0.7) k/uL Basophils # (0-0.2) k/uL Sodium (137-145) mmol/L Potassium (3.5-5.1) mmol/L Chloride (98-107) mmol/L Carbon Dioxide (22-30) mmol/L Anion Gap mmol/L BUN (9-20) mg/dL Creatinine (0.66-1.25) mg/dL Est GFR (MDRD) Af Amer (>60 ml/min/1.73 sqM) Est GFR (MDRD) Non-Af (>60 ml/min/1.73 sqM) Glucose (74-99) mg/dL Plasma Lactic Acid [place] (0.7-2.0) mmol/L Calcium (8.4-10.2) mg/dL Total Bilirubin (0.2-1.3) mg/dL AST (17-59) U/L ALT (21-72) U/L Alkaline Phosphatase (38-126) U/L Total Protein (6.3-8.2) g/dL Albumin (3.5-5.0) g/dL Amylase (30-110) U/L Lipase (23-300) U/L Acetone, Qual Positive (Negative) Disposition Clinical Impression: Cyclical vomiting with nausea, End stage renal failure on dialysis Disposition: ADMITTED IP TO THIS [facility] Condition: Serious
[2016-10-27] MEDS ORDERED: METOCLOPRAMIDE 5 MG/ML 2 ML VIAL IVP STA (14:29)
[2016-10-27 14:30] LABS: Calcium 8.6 mg/dL (8.4-10.2); Total Bilirubin 0.8 mg/dL (0.2-1.3); Total Protein 6.5 g/dL (6.3-8.2)
[2016-10-27] MEDS ORDERED: INSULIN REGULAR 100 UNIT/ML VIAL SQ ONE (15:19)
[2016-10-27] MEDS: POTASSIUM CHLORIDE 10 MEQ, LIDOCAINE 2% INJ 10 MG in SODIUM CHLORIDE 0.9% 100 ML IVPB SCH ×2 (15:24→16:56)
[2016-10-27] MEDS ORDERED: INSULIN REGULAR 100 UNIT/ML VIAL IV ONE (15:29)
[2016-10-27 15:30] LABS: Glucose,Whole Blood 225 mg/dL (75-99)
[2016-10-27] MEDS ORDERED: NALOXONE 0.4 MG/ML 1 ML VIAL IV PRN (15:34)
[2016-10-27] MEDS ORDERED: ENALAPRILAT 1.25 MG/ML 1 ML VIAL IVP PRN (15:39)
[2016-10-27] MEDS ORDERED: SODIUM CHLORIDE 0.9% 1,000 ML IV SCH (15:45)
[2016-10-27] MEDS: HYDROmorphone 1 MG/ML 1 ML SYRINGE IV PRN ×2 (16:53→21:32)
[2016-10-27] MEDS: ONDANSETRON 4 MG/2 ML VIAL IVP PRN ×2 (16:54→21:31)
[2016-10-27 17:04] VITALS: BMI 38.8
[2016-10-27 17:35] LABS: Glucose,Whole Blood 192 mg/dL (75-99)
[2016-10-27] MEDS ORDERED: ONDANSETRON ODT 4 MG TAB PO PRN (18:02)
[2016-10-27] MEDS: METOPROLOL TARTRATE 50 MG TAB PO SCH (20:35)
[2016-10-27] MEDS: METOCLOPRAMIDE 5 MG TAB PO SCH (20:36)
[2016-10-27] MEDS: buPROPion SR 150 MG TABLET.ER PO SCH (20:36)
[2016-10-27 20:56] LABS: Glucose,Whole Blood 150 mg/dL (75-99)
[2016-10-27] MEDS ORDERED: INSULIN GLARGINE 100 UNIT/ML 10 ML VIAL SQ SCH (21:00)
--- NOTE | 2016-10-27 21:32 | HP ---
The patient is a 25-year-old well known patient to me with multiple hospitalizations secondary to cyclical vomiting syndrome and gastroparesis. Patient has type 1 diabetes mellitus, has a history of DKA. Patient has a slight acetone positive and patient has multiple episodes of vomiting. Patient was started on Protonix here. The patient missed hemodialysis yesterday, as he was in ER. Patient received a central line for hemodialysis and patient will receive hemodialysis today. Once his symptoms of nausea, vomiting improve, patient will be discharged. Patient's symptoms of nausea and vomiting already improved with symptomatic treatment. REVIEW OF SYSTEMS: CARDIOVASCULAR: No chest pain, no orthopnea, no PND, no palpitations. PULMONARY: Denied any shortness of breath. No cough or hemoptysis. GASTROINTESTINAL: As described in HPI. NEUROLOGIC: No headaches, no weakness, no numbness. All other systems were reviewed and were negative Home medications include: 1. Insulin glargine. 2. Bupropion. 3. Amlodipine. 4. Lisinopril. 5. Glargine and pre-meal insulin. 6. Ranitidine. 7. Potassium chloride. 8. Ergocalciferol. 9. Hydrocodone/acetaminophen. 10. Metoprolol. 11. Iron. ALLERGIES: No known drug allergies. 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 FAMILY HISTORY: Significant for type 2 diabetes mellitus in mother. Father had diabetes mellitus as well. PHYSICAL EXAMINATION: VITAL SIGNS: Temperature 97.8, pulse of 93, respiratory rate of 18, blood pressure is 212/98, saturating at 97% on room air. GENERAL: The patient is alert and oriented x3, not in any acute distress. Well developed, well nourished. HEENT: Pupils are round and equally reacting to light. EOMI. No scleral icterus. No conjunctival pallor. Normocephalic, atraumatic. No pharyngeal erythema. No thyromegaly. CARDIOVASCULAR: S1 and S2 present. No murmurs, rubs, or gallops. PULMONARY: Chest is clear to auscultation, no wheezing or crackles. ABDOMEN: Soft, nontender, nondistended, normoactive bowel sounds. No palpable organomegaly. MUSCULOSKELETAL: No joint swelling or deformity. EXTREMITIES: No cyanosis, clubbing, or pedal edema. NEUROLOGICAL: Gross neurological examination did not reveal any focal deficits. SKIN: No rashes. LABORATORY DATA: CBC, CMP are abnormal for mildly low hemoglobin of 9.7, potassium of 3.0, BUN of 34, creatinine of 6.18 and blood glucose of 182. Acetone positive in the urine. Abdominal x-ray: Nonspecific gas pattern. ASSESSMENT AND PLAN: 1. Cyclical vomiting syndrome for which will go ahead and use symptomatic treatment for that. 2. End-stage renal disease on hemodialysis. Patient received hemodialysis today. 3. Hypokalemia, expected to improve with hemodialysis. 4. Type 1 diabetes mellitus leading to diabetic nephropathy. Patient's anion gap is only 10. Patient will be continued on his insulin regimen. We can feed him as tolerated. 5. Accelerated hypertension because of his missed hemodialysis. Patient does have multiple doses of IV antihypertensive medications. Will continue with hemodialysis. Will discontinue all the IV anti-reflux medications. Patient will resume his home regimen. 6. Possible gastroparesis and gastritis. 7. Diabetic neuropathy. MTDD
[2016-10-27] MEDS: HYDROcodone/APAP 5-325MG 1 EACH TAB PO PRN (23:45)
[2016-10-28 00:12] LABS: Glucose,Whole Blood 139 mg/dL (75-99)
[2016-10-28] MEDS: HYDROmorphone 1 MG/ML 1 ML SYRINGE IV PRN ×3 (01:35→10:48)
[2016-10-28 06:03] LABS: Glucose,Whole Blood 107 mg/dL (75-99)
[2016-10-28] MEDS: ONDANSETRON 4 MG/2 ML VIAL IVP PRN (06:21)
[2016-10-28 06:42] LABS: Calcium 8.4 mg/dL (8.4-10.2)
[2016-10-28 07:14] LABS: Potassium 2.7 mmol/L (3.5-5.1)
[2016-10-28] MEDS: INSULIN LISPRO (humaLOG) 300 UNIT/3 ML VIAL SQ SCH ×2 (08:28→12:34)
[2016-10-28] MEDS: buPROPion SR 150 MG TABLET.ER PO SCH (08:31)
[2016-10-28] MEDS: METOCLOPRAMIDE 5 MG TAB PO SCH (08:31)
[2016-10-28] MEDS: METOPROLOL TARTRATE 50 MG TAB PO SCH (08:31)
[2016-10-28 08:43] VITALS: BP 176/94; PULSE 72; RESP 16; TEMP 97.5
[2016-10-28] MEDS ORDERED: amLODIPine 5 MG TAB PO SCH (09:00)
[2016-10-28] MEDS ORDERED: LISINOPRIL 20 MG TAB PO SCH (09:00)
[2016-10-28] MEDS ORDERED: PANTOPRAZOLE 40 MG/10 ML VIAL IV SCH (09:00)
[2016-10-28] MEDS ORDERED: POTASSIUM CHLORIDE ER 20 MEQ TAB.ER PO SCH ×2 (09:00→14:00)
[2016-10-28] MEDS: HYDROcodone/APAP 5-325MG 1 EACH TAB PO PRN (09:09)
[2016-10-28] MEDS ORDERED: POTASSIUM CHLORIDE ER 20 MEQ TAB.ER PO STA (10:12)
--- NOTE | 2016-10-28 10:43 | DS ---
DATE OF ADMISSION: 10/27/2016 DATE OF DISCHARGE: 25-year-old admitted for cyclic nausea, vomiting intractable symptoms of which resolved. Patient has cyclic vomiting syndrome as well as gastroparesis secondary to prolonged diabetes mellitus and neuropathy. Patient is clinically doing well today and patient will be discharged today. Nephrology does not believe patient will need emergent dialysis. The patient will follow up in his D[facility] Center tomorrow. Patient was seen and examined on the day of discharged. Vitals are stable. PHYSICAL EXAMINATION: GENERAL: The patient is alert and oriented x3, not in any acute distress. Well developed, well nourished. HEENT: Pupils are round and equally reacting to light. EOMI. No scleral icterus. No conjunctival pallor. Normocephalic, atraumatic. No pharyngeal erythema. No thyromegaly. CARDIOVASCULAR: S1 and S2 present. No murmurs, rubs, or gallops. PULMONARY: Chest is clear to auscultation, no wheezing or crackles. ABDOMEN: Soft, nontender, nondistended, normoactive bowel sounds. No palpable organomegaly. MUSCULOSKELETAL: No joint swelling or deformity. EXTREMITIES: No cyanosis, clubbing, or pedal edema. NEUROLOGICAL: Gross neurological examination did not reveal any focal deficits. SKIN: No rashes. FINAL DIAGNOSIS(ES): 1. Cyclic vomiting syndrome or gastroparesis. 2. End stage renal disease. 3. Hypokalemia potassium will be supplemented. 4. Type 1 diabetes mellitus. 5. Accelerated hypertension. 6. Gastroparesis and gastritis neuropathy. The patient is fairly doing well at this point in time. Blood pressure is well controlled. The patient will follow with Dr. Myron Bailey in 3 to 7 days. Activity as tolerated. Cardiac renal and diabetic ADA 1800 calorie diet. No medication changes are being made. We will give him ( ) as per the request of the patient. Spent greater than 35 minutes in total discharge process.
[2016-10-28 12:36] LABS: Glucose,Whole Blood 90 mg/dL (75-99)
--- NOTE | 2016-10-28 12:59 | P.NPCON ---
History of Present Illness - Reason for Consult Consult date: 10/28/16 end stage renal disease - Chief Complaint frequent nausea vomiting gastroparesis - History of Present Illness this is a 25-year-old male who was recently started on dialysis about 4 weeks agowith diabetic nephropathy. He has been in and out of the emergency room with gastroparesis and came back again yesterday with nausea vomiting. He missed his dialysis yesterday because of this.he denies any fever chills abdominal pain. No diarrhea Overnight he has improved significantly with no nausea vomiting and has been able to keep his breakfast down and feels like eating his lunch. He has a PICC line placed on his right upper arm on 10/26/2016 2 days ago. Supposedly this was placed because of his frequent visits to emergency room and difficulty in finding a axis for IV fluids. He is not on any antibiotics. Presumably this should come out as soon as possible as this is the brain that would be best for his future Dung fistula' s. is known with type 1 diabetes since age 10 about 10 years ago. No history of retinopathy or neuropathy. His creatinine was3.17 on 08/21/2016 but somehow he was placed on dialysis probably was an outside hospital with acute kidney injury. He is making fair amount of urine and his creatinine this admission is around 5.7-6.46. His somewhat obese with a BMI of 38.8. Is not on any transplant list. He has a permacath in his right chest Past Medical History Past Medical History: Diabetes Mellitus, GERD/Reflux, Hypertension, Renal Disease Additional Past Medical History / Comment(s): IDDM, GASTROPARESIS, gastritis, esophagitis, DKA episodes, hiatal hernia, as child had seizure r/t high fever, acute pancreatits(idiopathic) in july 2015, chronic kidney disease stage III , L leg neuropathy, migraines. History of Any Multi-Drug Resistant Organisms: MRSA Date of last positivie culture/infection: MDRO Source:: CHIN/ Rt leg Past Surgical History: Cholecystectomy, Orthopedic Surgery, Tonsillectomy Additional Past Surgical History / Comment(s): LEFT ELBOW pinned, egd's w/ bx's last done 05-30-16. Past Anesthesia/Blood Transfusion Reactions: No Reported Reaction Past Psychological History: ADD/ADHD, Anxiety, Depression Additional Psychological History / Comment(s): Pt resides with his mother. He is independent. Smoking Status: Former smoker Past Alcohol Use History: None Reported Additional Past Alcohol Use History / Comment(s): Pt states he started smoking in 2006 and quit in 2011 Past Drug Use History: Marijuana Additional Drug Use History / Comment(s): pt states smokes marijuana a couple times per month - Past Family History Mother Family Medical History: Diabetes Mellitus Additional Family Medical History / Comment(s): heart problems-(pt not sure what they were) Father Family Medical History: Diabetes Mellitus Medications and Allergies Home Medications Medication Instructions Recorded Confirmed Type Insulin Glargine [Lantus] 18 unit SQ HS 06/06/15 10/27/16 History buPROPion SR [Wellbutrin SR] 150 mg PO BID 06/18/15 10/27/16 History amLODIPine [Norvasc] 5 mg PO DAILY 05/04/16 10/27/16 History INSULIN LISPRO (HumaLOG) [HumaLOG] 4 units SQ AC-TID 10/16/16 10/27/16 History Lisinopril [Zestril] 20 mg PO DAILY 10/16/16 10/27/16 History Metoclopramide HCl [Reglan] 5 mg PO TID 10/16/16 10/27/16 History Ranitidine HCl [Zantac] 150 mg PO HS 10/16/16 10/27/16 History Potassium Chloride ER [K-Dur 20] 20 meq PO DAILY 10/20/16 10/27/16 History Ergocalciferol (Vitamin D2) 50,000 unit PO MO 10/26/16 10/27/16 History [Vitamin D2] Hydrocodone/Acetaminophen [[place] 1 tab PO Q6HR PRN 10/27/16 10/27/16 History 5-325] Allergies Allergy/AdvReac Type Severity Reaction Status Date / Time No Known Allergies Allergy Verified 10/27/16 13:18 Physical Exam Vitals: Vital Signs Temp Pulse Pulse Resp BP BP Pulse Ox 10/28/16 08:00 72 16 10/28/16 07:00 97.5 F L 72 16 176/94 99 10/28/16 00:00 98 18 10/27/16 22:56 96.2 F L 98 18 184/112 99 10/27/16 21:00 220/107 10/27/16 16:58 97.8 F 18 10/27/16 16:45 97.8 F 110 H 16 204/110 97 10/27/16 15:43 93 18 212/98 98 Intake and Output 10/27/16 10/28/16 10/28/16 22:59 06:59 14:59 Intake Total 240 Output Total 800 Balance 240 -800 Intake: Oral 240 Output: Urine 800 Other: Voiding Method Urinal Urinal Weight 112.49 kg examination is awake alert oriented HEENT exam no JVP lymphadenopathy thyromegaly neck is supple no facial asymmetry Lungs are clear to auscultation percussion good air entry bilaterally Heart sounds are unremarkable for any murmur rub gallop. Abdomen soft nontender no organomegaly status masses Extremity exam was no edema Neurologically awake alert oriented has a PICC lineRight upper arm, permacath right side Results - Lab Results Most recent lab results Calcium 8.4 mg/dL (8.4-10.2) 10/28/16 06:13 10/27/16 13:41 10/28/16 06:13 Assessment and Plan Plan: impression. 1. New onset end-stage renal failure, about 4 weeks ago, on dialysis Saturday with a permacath right side. 2. Admitted with frequent gastroparesis improved overnight. To be discharged now. Has good urine output. He missed his dialysis yesterday but he is stable with large urine output and creatinine of 6.46 this morning. 3. hypo-kalemia with potassium of 2.7, etiology is nausea vomiting and decreased intake and good urine output 4. Obesity with BMI of 38 8. 5. Type 1 diabetes H 10, no neuropathy or retinopathy. Severe gastroparesis with recurrent ER visits. 6. PICC line inserted for . Recommendation. Patient can be discharged. His PICC line should come out as he is young male with long-term survival on dialysis and transplant and would require his remains to be preserved. I would refer him to Dr. Castelan so that he can get a axis as soon as possible. He has an appointment on 11/08/2016, I would like tohave him seen earlier and have him main mapping and proceed with surgery and removal of PICC line. If she needs IV access we can go for a IJ central axis.
[2016-10-29] MEDS ORDERED: ERGOCALCIFEROL 50,000 UNIT CAP PO SCH (12:00)
== END 2016-10-28 13:30 | disposition home or self-care (01) ==
LOC: EC 12:45 → INTOOBSV 15:34 → 5MS5E 15:34
PROVIDERS: ADMIT Internal Medicine; ATTEND Internal Medicine
DX: G43.A0 Cyclical vomiting, in migraine, not intractable (principal); N18.6 End stage renal disease; K31.84 Gastroparesis; E87.6 Hypokalemia; E10.43 Type 1 diabetes mellitus with diabetic autonomic (poly)neuropathy; I12.0 Hypertensive chronic kidney disease with stage 5 chronic kidney disease or end stage renal disease; E66.9 Obesity, unspecified; E10.21 Type 1 diabetes mellitus with diabetic nephropathy; E10.22 Type 1 diabetes mellitus with diabetic chronic kidney disease; F90.9 Attention-deficit hyperactivity disorder, unspecified type; K21.9 Gastro-esophageal reflux disease without esophagitis; Z68.38 Body mass index [BMI] 38.0-38.9, adult; K31.89 Other diseases of stomach and duodenum; Z79.4 Long term (current) use of insulin; Z79.899 Other long term (current) drug therapy; Z83.3 Family history of diabetes mellitus; Z99.2 Dependence on renal dialysis; F41.9 Anxiety disorder, unspecified; F32.9 Major depressive disorder, single episode, unspecified; I10 Essential (primary) hypertension; Z90.49 Acquired absence of other specified parts of digestive tract; Z87.891 Personal history of nicotine dependence; Z45.2 Encounter for adjustment and management of vascular access device
CPT/HCPCS: 96365; 96366 ×2; 96376; 96374; 96375; 99285; 36415; 80053; 80048; 82150; 82009; 83605; 83690; 85025; 74020; G0378 ×2; J2001; J0360; J2765; S0106 ×2; J2405 ×2; J3480; J1170 ×2; C9113 ×2; 90935

== ENCOUNTER 2016-11-02 08:20 | Inpatient (IN) | payer OTHER ==
[2016-11-02] MEDS ORDERED: HYDROmorphone 1 MG/ML 1 ML SYRINGE IVP STA ×2 (08:42→10:44)
[2016-11-02] MEDS ORDERED: LABETALOL 5 MG/ML VIAL MDV IVP STA (08:42)
[2016-11-02] MEDS ORDERED: SODIUM CHLORIDE 0.9% 1,000 ML IV STA (08:42)
[2016-11-02] MEDS ORDERED: ONDANSETRON 4 MG/2 ML VIAL IVP STA ×2 (08:42→10:44)
[2016-11-02 08:43] LABS: Glucose,Whole Blood 287 mg/dL (75-99)
--- NOTE | 2016-11-02 08:45 | ED ---
General Adult HPI - General Chief complaint: Nausea/Vomiting/Diarrhea Stated complaint: abd pain, nausea Time Seen by Provider: 11/02/16 08:37 Source: patient, RN notes reviewed Mode of arrival: wheelchair Limitations: no limitations - History of Present Illness Initial comments: Patient 26-year-old male significant past medical history for diabetes, hypertension, renal failure, A. fib vomiting syndrome, who presents emergency room today with a chief complaint of increased abdominal pain with increased nausea vomiting over the last 3 hours. Patient does admit that pain and symptoms are consistent with symptoms that he's had in the past. States unable take any of his medications this morning. States blood pressure always increases when these pains and vomiting starts. Patient denies any signs of blood in the emesis. Denies any other complaints or symptoms at this time. Patient denies any recent fever, chills, shortness of breath, chest pain, back pain, numbness or tingling, dysuria or hematuria, constipation or diarrhea, headaches or visual changes, or any other complaints. - Related Data Home Medications Medication Instructions Recorded Confirmed Insulin Glargine [Lantus] 18 unit SQ HS 06/06/15 11/02/16 buPROPion SR [Wellbutrin SR] 150 mg PO BID 06/18/15 11/02/16 amLODIPine [Norvasc] 5 mg PO DAILY 05/04/16 11/02/16 INSULIN LISPRO (HumaLOG) [HumaLOG] 4 units SQ AC-TID 10/16/16 11/02/16 Lisinopril [Zestril] 20 mg PO DAILY 10/16/16 11/02/16 Metoclopramide HCl [Reglan] 5 mg PO TID 10/16/16 11/02/16 Ranitidine HCl [Zantac] 150 mg PO HS 10/16/16 11/02/16 Potassium Chloride ER [K-Dur 20] 20 meq PO DAILY 10/20/16 11/02/16 Ergocalciferol (Vitamin D2) 50,000 unit PO MO 10/26/16 11/02/16 [Vitamin D2] Hydrocodone/Acetaminophen [[place] 1 tab PO Q6HR PRN 10/27/16 11/02/16 5-325] Previous Rx's Medication Instructions Recorded Metoprolol Tartrate [Lopressor] 100 mg PO BID #60 tab 07/16/15 Ondansetron Odt [Zofran ODT] 4 mg PO Q8HR PRN #15 tab 08/03/16 HYDROcodone/APAP 7.5-325MG [[place] 1 tab PO Q4H PRN #30 tab 10/28/16 7.5-325] Allergies Allergy/AdvReac Type Severity Reaction Status Date / Time No Known Allergies Allergy Verified 11/02/16 09:17 Review of Systems ROS Statement: Those systems with pertinent positive or pertinent negative responses have been documented in the HPI. ROS Other: All systems not noted in ROS Statement are negative. Past Medical History Past Medical History: Diabetes Mellitus, GERD/Reflux, Hypertension, Renal Disease Additional Past Medical History / Comment(s): IDDM, GASTROPARESIS, gastritis, esophagitis, DKA episodes, hiatal hernia, as child had seizure r/t high fever, acute pancreatits(idiopathic) in july 2015, chronic kidney disease stage III , L leg neuropathy, migraines. History of Any Multi-Drug Resistant Organisms: MRSA Date of last positivie culture/infection: MDRO Source:: CHIN/ Rt leg Past Surgical History: Cholecystectomy, Orthopedic Surgery, Tonsillectomy Additional Past Surgical History / Comment(s): LEFT ELBOW pinned, egd's w/ bx's last done 05-30-16. Past Anesthesia/Blood Transfusion Reactions: No Reported Reaction Past Psychological History: ADD/ADHD, Anxiety, Depression Additional Psychological History / Comment(s): Pt resides with his mother. He is independent. Smoking Status: Former smoker Past Alcohol Use History: None Reported Additional Past Alcohol Use History / Comment(s): Pt states he started smoking in 2006 and quit in 2011 Past Drug Use History: Marijuana Additional Drug Use History / Comment(s): pt states smokes marijuana a couple times per month - Past Family History Mother Family Medical History: Diabetes Mellitus Additional Family Medical History / Comment(s): heart problems-(pt not sure what they were) Father Family Medical History: Diabetes Mellitus General Exam - General Exam Comments Initial Comments: General: The patient is awake and alert, in mild distress. Eye: Pupils are equal, round and reactive to light, extra-ocular movements are intact. No nystagmus. There is normal conjunctiva bilaterally. No signs of icterus. Ears, nose, mouth and throat: There are moist mucous membranes and no oral lesions. Neck: The neck is supple, there is no tenderness or JVD. Cardiovascular: There is a regular rate and rhythm. No murmur, rub or gallop is appreciated. Respiratory: Lungs are clear to auscultation, respirations are non-labored, breath sounds are equal. No wheezes, stridor, rales, or rhonchi. Gastrointestinal: Normal. His abdomen. Abdomen soft on palpation. Normal bowel sounds. Diffuse tenderness throughout the abdomen. No rebound tenderness. No guarding. Musculoskeletal: Normal ROM, no tenderness. Strength 5/5. Sensation intact. Pulses equal bilaterally 2+. Neurological: A&O x 3. CN II-XII intact, There are no obvious motor or sensory deficits. Coordination appears grossly intact. Speech is normal. Skin: Skin is warm and dry and no rashes or lesions are noted. Psychiatric: Cooperative, appropriate mood & affect, normal judgment. Limitations: no limitations Course Vital Signs 11/02/16 11/02/16 08:27 10:08 Temperature 98.7 F Pulse Rate 115 H 92 Respiratory 20 16 Rate Blood Pressure 233/121 229/105 O2 Sat by Pulse 100 96 Oximetry Medical Decision Making - Medical Decision Making Reexamined at this time does not some improvement but still having abdominal pain. Patient's blood pressure improved slightly with labetalol but has increased now pain has returned. Patient labs reviewed and does show elevated BUN/creatinine. Patient due for dialysis today. Patient's lipase mildly elevated crit and 600. Patient will be admitted to the hospital for further IV fluids pain medication and dialysis. - Lab Data Result diagrams: 11/02/16 08:53 11/02/16 08:53 Lab Results 11/02/16 11/02/16 11/02/16 Range/Units 08:39 08:53 08:53 WBC 8.2 (3.8-10.6) k/uL RBC 3.00 L (4.30-5.90) m/uL Hgb 8.4 L (13.0-17.5) gm/dL Hct 25.9 L (39.0-53.0) % MCV 86.3 (80.0-100.0) fL MCH 28.0 (25.0-35.0) pg MCHC 32.5 (31.0-37.0) g/dL RDW 14.1 (11.5-15.5) % Plt Count 251 (150-450) k/uL Neutrophils % 72 % Lymphocytes % 17 % Monocytes % 7 % Eosinophils % 1 % Basophils % 1 % Neutrophils # 5.9 (1.3-7.7) k/uL Lymphocytes # 1.4 (1.0-4.8) k/uL Monocytes # 0.6 (0-1.0) k/uL Eosinophils # 0.1 (0-0.7) k/uL Basophils # 0.0 (0-0.2) k/uL Sodium 140 (137-145) mmol/L Potassium 3.5 (3.5-5.1) mmol/L Chloride 102 (98-107) mmol/L Carbon Dioxide 29 (22-30) mmol/L Anion Gap 9 mmol/L BUN 57 H (9-20) mg/dL Creatinine 7.45 H* (0.66-1.25) mg/dL Est GFR (MDRD) Af Amer 11 (>60 ml/min/1.73 sqM) Est GFR (MDRD) Non-Af 9 (>60 ml/min/1.73 sqM) Glucose 305 H (74-99) mg/dL POC Glucose (mg/dL) 287 H (75-99) mg/dL POC Glu [employer] ID Morgan, Deysi Calcium 8.0 L (8.4-10.2) mg/dL Total Bilirubin 0.4 (0.2-1.3) mg/dL AST 21 (17-59) U/L ALT 30 (21-72) U/L Alkaline Phosphatase 119 (38-126) U/L Total Protein 6.0 L (6.3-8.2) g/dL Albumin 2.8 L (3.5-5.0) g/dL Amylase 124 H (30-110) U/L Lipase 609 H (23-300) U/L Acetone, Qual Negative (Negative) Disposition Clinical Impression: Acute pancreatitis Disposition: ADMITTED IP TO THIS [facility] Time of Disposition: 10:45
[2016-11-02 09:18] LABS: ALT 30 U/L (21-72); AST 21 U/L (17-59); Alkaline Phosphatase 119 U/L (38-126); Amylase 124 U/L (30-110); Anion Gap 9 mmol/L; Blood Urea Nitrogen 57 mg/dL (9-20); Carbon Dioxide 29 mmol/L (22-30); Chloride 102 mmol/L (98-107); Glucose 305 mg/dL (74-99); Potassium 3.5 mmol/L (3.5-5.1); Sodium 140 mmol/L (137-145); Total Bilirubin 0.4 mg/dL (0.2-1.3)
[2016-11-02 09:29] LABS: Basophils % (A) 1 %; CH 27.5; Eosinophils # (A) 0.1 k/uL (0-0.7); Eosinophils % (A) 1 %; HCT 25.9 % (39.0-53.0); HGB 8.4 gm/dL (13.0-17.5); Luc # (Auto) 0.23; Luc % (Auto) 3; Lymphocytes # (A) 1.4 k/uL (1.0-4.8); Lymphocytes % (A) 17 %; MCHC 32.5 g/dL (31.0-37.0); MCV 86.3 fL (80.0-100.0); Mean Platelet Volume 6.9; Monocytes # (A) 0.6 k/uL (0-1.0); Monocytes % (A) 7 %; Neutrophils # (A) 5.9 k/uL (1.3-7.7); Neutrophils % (A) 72 %; RDW 14.1 % (11.5-15.5); WBC 8.2 k/uL (3.8-10.6); WBC (Perox) 8.32
[2016-11-02 09:51] LABS: Non-African American GFR(MDRD) 9 (>60 ml/min/1.73 sqM)
[2016-11-02] MEDS ORDERED: INSULIN LISPRO (humaLOG) 300 UNIT/3 ML VIAL SQ ONE (09:53)
[2016-11-02] MEDS ORDERED: hydrALAZINE HCL 20 MG/ML 1 ML VIAL IVP STA (10:44)
[2016-11-02] MEDS ORDERED: SODIUM CHLORIDE 0.9% 1,000 ML IV ONE (10:46)
[2016-11-02] MEDS ORDERED: NALOXONE 0.4 MG/ML 1 ML VIAL IV PRN (10:46)
[2016-11-02 11:25] LABS: Appearance,Urine Clear (Clear); Bacteria,Urine Rare /hpf; Bilirubin,Urine Negative (Negative); Glucose,Urine (UA) 4+ (Negative); Ketones,Urine Negative (Negative); Leukocyte Esterase,Urine Negative (Negative); Nitrite,Urine Negative (Negative); Particle Count 2230; Protein,Urine 4+ (Negative); RBC,Urine 3 /hpf (0-5); Specific Gravity,Urine 1.009 (1.001-1.035); Squamous Epithelial Cell,Urine <1 /hpf (0-4); UA Billing (MACRO vs. MICRO) MICRO; Urobilinogen,Urine <2.0 mg/dL (<2.0); WBC,Urine 18 /hpf (0-5)
[2016-11-02 12:29] LABS: Glucose,Whole Blood 356 mg/dL (75-99)
[2016-11-02] MEDS: HYDROmorphone 1 MG/ML 1 ML SYRINGE IV PRN ×4 (14:42→23:34)
[2016-11-02] MEDS ORDERED: HYDROcodone/APAP 5-325MG 1 EACH TAB PO PRN (16:18)
[2016-11-02] MEDS: amLODIPine 5 MG TAB PO SCH (16:38)
[2016-11-02] MEDS: METOCLOPRAMIDE 5 MG TAB PO SCH ×2 (16:39→21:53)
[2016-11-02] MEDS: HYDROcodone/APAP 7.5-325MG 1 EACH TAB PO PRN (16:39)
[2016-11-02] MEDS: LISINOPRIL 20 MG TAB PO SCH (16:39)
[2016-11-02 17:29] LABS: Glucose,Whole Blood 310 mg/dL (75-99)
[2016-11-02] MEDS: INSULIN LISPRO (humaLOG) 300 UNIT/3 ML VIAL SQ SCH (17:54)
--- NOTE | 2016-11-02 18:06 | HP ---
DATE OF ADMISSION: Patient is a 26-year-old who has had multiple admissions. He comes in with nausea, vomiting. Patient has a history of gastroparesis. Patient missed his hemodialysis. Patient will be initiated on hemodialysis. Patient denied any fever or chills. Patient was having minimal epigastric abdominal pain. Patient has minimal nonspecific elevation of lipase. Patient was initially thought to have pancreatitis, although my suspicion is low. Lipase is not ( ) acute pancreatitis. Patient will be treated for gastritis. REVIEW OF SYSTEMS: CONSTITUTIONAL: No fever, no malaise, no fatigue. HEENT: No recent visual problems or hearing problems. Denied any sore throat. CARDIOVASCULAR: No chest pain, orthopnea, PND, no palpitations, no syncope. PULMONARY: No shortness of breath, no cough, no hemoptysis. GASTROINTESTINAL: As described in HPI. NEUROLOGICAL: No headaches, no weakness, no numbness. HEMATOLOGICAL: Denies any bleeding or petechiae. GENITOURINARY: Denies any burning micturition, frequency, or urgency. MUSCULOSKELETAL/RHEUMATOLOGICAL: Denies any joint pain, swelling, or any muscle pain. ENDOCRINE: Denies any polyuria or polydipsia. The rest of the 14 point review of systems is negative. HOME MEDICATIONS: 1. Insulin Glargine. 2. Buspirone. 3. Amlodipine. 4. Lisinopril. 5. Metoclopramide. 6. Ranitidine. 7. Potassium chloride. 8. Ergocalciferol. 9. Hydrocodone/acetaminophen. 10. Metoprolol. 11. Ondansetron. ALLERGIES: NO KNOWN DRUG ALLERGIES. Past medical history is significant for: 1. Diabetes mellitus. 2. Gastroesophageal reflux disease. 3. Hypertension. 4. Renal disease. 5. MRSA in the past. 6. Cholecystectomy. 7. Orthopedic surgery. 8. Tonsillectomy. 9. Left elbow pinned. 10. ADHD. 11. Anxiety. 12. Depression. SOCIAL HISTORY: Quit smoking in 2011. Occasionally uses marijuana. Denied any alcohol abuse. FAMILY HISTORY: Significant for diabetes mellitus in mother and father, which is type 2. PHYSICAL EXAMINATION: VITAL SIGNS: Temperature 97.4, pulse of 111, respiratory rate of 17. Blood pressure is 200/98. Saturating at 100% on room air. GENERAL: The patient is alert and oriented x3, not in any acute distress. Well developed, well nourished. HEENT: Pupils are round and equally reacting to light. EOMI. No scleral icterus. No conjunctival pallor. Normocephalic, atraumatic. No pharyngeal erythema. No thyromegaly. CARDIOVASCULAR: S1 and S2 present. No murmurs, rubs, or gallops. PULMONARY: Chest is clear to auscultation, no wheezing or crackles. ABDOMEN: Soft, nontender, nondistended, normoactive bowel sounds. No palpable organomegaly. MUSCULOSKELETAL: No joint swelling or deformity. EXTREMITIES: No cyanosis, clubbing, or pedal edema. NEUROLOGICAL: Gross neurological examination did not reveal any focal deficits. SKIN: No rashes. LABORATORY DATA: CBC, CMP are abnormal for elevated BUN and creatinine of 57 and 7.45. Blood sugars are highly elevated. Urine is positive for 4+ protein, 4+ glucose, small ketones, WBC of 18 in the urine. Acetone negative. ASSESSMENT AND PLAN: 1. Nausea, vomiting, abdominal pain. I do not believe patient has pancreatitis. Patient will be started on Protonix. Patient apparently has gastroparesis and gastritis. Patient will be treated for both. 2. End-stage renal disease; missed hemodialysis. Patient will be initiated back on hemodialysis. 3. Elevated blood sugars, as patient did not take his insulin. Patient will be resumed on his regimen. Patient is not in diabetic ketoacidosis. 4. Accelerated hypertension, for which patient will be resumed on his home medication. Patient's blood pressure although tends to be high, which comes down after dialysis. Patient will receive hemodialysis today. 5. Cyclical vomiting syndrome. 6. 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 7. Type 1 diabetes mellitus; is not in diabetic ketoacidosis. 8. Diabetic neuropathy. PLAN: As mentioned above. Diabetic diet.
[2016-11-02 20:08] LABS: Glucose,Whole Blood 249 mg/dL (75-99)
[2016-11-02] MEDS: METOPROLOL TARTRATE 50 MG TAB PO SCH (21:37)
[2016-11-02] MEDS: INSULIN GLARGINE 100 UNIT/ML 10 ML VIAL SQ SCH (21:37)
[2016-11-02] MEDS: buPROPion SR 150 MG TABLET.ER PO SCH (21:37)
[2016-11-02] MEDS: ONDANSETRON 4 MG/2 ML VIAL IVP PRN (23:40)
[2016-11-03] MEDS: HYDROmorphone 1 MG/ML 1 ML SYRINGE IV PRN ×6 (02:32→22:32)
[2016-11-03 06:39] LABS: Calcium 8.2 mg/dL (8.4-10.2); Potassium 3.4 mmol/L (3.5-5.1); Total Bilirubin 0.5 mg/dL (0.2-1.3); Total Protein 5.7 g/dL (6.3-8.2)
[2016-11-03 07:26] LABS: Glucose,Whole Blood 224 mg/dL (75-99)
[2016-11-03] MEDS: buPROPion SR 150 MG TABLET.ER PO SCH ×2 (07:55→21:03)
[2016-11-03] MEDS: amLODIPine 5 MG TAB PO SCH (07:55)
[2016-11-03] MEDS: METOCLOPRAMIDE 5 MG TAB PO SCH ×3 (07:55→21:04)
[2016-11-03] MEDS: LISINOPRIL 20 MG TAB PO SCH (07:55)
[2016-11-03] MEDS: METOPROLOL TARTRATE 50 MG TAB PO SCH ×2 (07:55→21:03)
[2016-11-03] MEDS: INSULIN LISPRO (humaLOG) 300 UNIT/3 ML VIAL SQ SCH ×3 (07:56→17:08)
[2016-11-03] MEDS: POTASSIUM CHLORIDE ER 20 MEQ TAB.ER PO SCH (07:56)
[2016-11-03] MEDS: HYDROcodone/APAP 7.5-325MG 1 EACH TAB PO PRN (08:14)
[2016-11-03] MEDS: ONDANSETRON 4 MG/2 ML VIAL IVP PRN ×2 (08:15→21:13)
[2016-11-03 08:16] LABS: Basophils # (A) 0.1 k/uL (0-0.2); Basophils % (A) 1 %; CH 27.3; CHCM 30.7; Eosinophils # (A) 0.2 k/uL (0-0.7); Eosinophils % (A) 3 %; HCT 27.5 % (39.0-53.0); HDW 2.24; HGB 8.5 gm/dL (13.0-17.5); Hypochromasia Slight; Luc # (Auto) 0.18; Luc % (Auto) 3; Lymphocytes # (A) 1.8 k/uL (1.0-4.8); Lymphocytes % (A) 25 %; MCH 27.5 pg (25.0-35.0); MCHC 30.9 g/dL (31.0-37.0); MCV 89.1 fL (80.0-100.0); Mean Platelet Volume 6.8; Monocytes # (A) 0.4 k/uL (0-1.0); Monocytes % (A) 5 %; Neutrophils # (A) 4.6 k/uL (1.3-7.7); Neutrophils % (A) 64 %; RBC 3.09 m/uL (4.30-5.90); RDW 14.3 % (11.5-15.5); WBC 7.1 k/uL (3.8-10.6); WBC (Perox) 7.56
--- NOTE | 2016-11-03 09:59 | P.NPCON ---
History of Present Illness - Reason for Consult end stage renal disease - History of Present Illness Reason for consultation: End-stage renal disease History of present illness: Patient is a 26-year-old -[place] male seen in renal consultation for end-stage renal disease. He is maintained on hemodialysis on a Saturday schedule. He has a permacath for dialysis access. Etiology is likely diabetic kidney disease however he never got the kidney biopsy done. Patient presented to the hospital with nausea and vomiting. He's also been having abdominal pain which became worse yesterday. He does have insulin- dependent diabetes mellitus and has been admitted multiple times recently with diabetic gastroparesis. He denies any chest pain or shortness of breath. He still makes urine. No fever or chills. His blood pressure also runs high which is partially due to pain but it is better controlled since admission. No vomiting since admission. Pain is better controlled. Vital signs are stable. General: The patient appeared well nourished and normally developed. HEENT: Head exam is unremarkable. Neck is without jugular venous distension. LUNGS: Lungs are clear to auscultation and percussion. Breath sounds decreased. HEART: Rate and Rhythm are regular. First and second heart sounds normal. No murmurs, rubs or gallops. ABDOMEN: Abdominal exam reveals normal bowel sounds. Non-tender and non- distended. No evidence of peritonitis. EXTREMITITES: No clubbing, cyanosis, or edema. Past Medical History Past Medical History: Asthma, Diabetes Mellitus, GERD/Reflux, Hypertension, Osteoarthritis (OA), Renal Disease Additional Past Medical History / Comment(s): IDDM type I, GASTROPARESIS, gastritis, esophagitis,cyclic vomiting syndrome, DKA episodes, hiatal hernia, as child had seizure r/t high fever, pancreatits(idiopathic), chronic kidney disease stage III-hemodialysis //Saturday-last hemo done 10/31/16, L leg neuropathy, migraines. History of Any Multi-Drug Resistant Organisms: MRSA Date of last positivie culture/infection: MDRO Source:: CHIN/ Rt leg Past Surgical History: Cholecystectomy, Orthopedic Surgery, Tonsillectomy Additional Past Surgical History / Comment(s): R upper chest hemodialysis catheter, PICC line, LEFT ELBOW pinned, egd's w/ bx's last done 05-30-16. Past Anesthesia/Blood Transfusion Reactions: No Reported Reaction Past Psychological History: ADD/ADHD, Anxiety, Depression Additional Psychological History / Comment(s): Pt resides with his mother. He is independent. Smoking Status: Former smoker Past Alcohol Use History: None Reported Additional Past Alcohol Use History / Comment(s): Pt states he started smoking in 2006 and quit in 2011 Past Drug Use History: Marijuana Additional Drug Use History / Comment(s): pt states smokes marijuana a couple times per month - Past Family History Mother Family Medical History: Diabetes Mellitus Additional Family Medical History / Comment(s): heart problems-(pt not sure what they were) Father Family Medical History: Diabetes Mellitus Medications and Allergies Home Medications Medication Instructions Recorded Confirmed Type Insulin Glargine [Lantus] 18 unit SQ HS 06/06/15 11/02/16 History buPROPion SR [Wellbutrin SR] 150 mg PO BID 06/18/15 11/02/16 History amLODIPine [Norvasc] 5 mg PO DAILY 05/04/16 11/02/16 History INSULIN LISPRO (HumaLOG) [HumaLOG] 4 units SQ AC-TID 10/16/16 11/02/16 History Lisinopril [Zestril] 20 mg PO DAILY 10/16/16 11/02/16 History Metoclopramide HCl [Reglan] 5 mg PO TID 10/16/16 11/02/16 History Ranitidine HCl [Zantac] 150 mg PO HS 10/16/16 11/02/16 History Potassium Chloride ER [K-Dur 20] 20 meq PO DAILY 10/20/16 11/02/16 History Ergocalciferol (Vitamin D2) 50,000 unit PO MO 10/26/16 11/02/16 History [Vitamin D2] Hydrocodone/Acetaminophen [[place] 1 tab PO Q6HR PRN 10/27/16 11/02/16 History 5-325] Allergies Allergy/AdvReac Type Severity Reaction Status Date / Time No Known Allergies Allergy Verified 11/02/16 09:17 Physical Exam Vitals: Vital Signs Temp Pulse Pulse Resp BP BP Pulse Ox 11/03/16 07:00 97.0 F L 79 16 166/93 100 11/02/16 20:16 97.0 F L 85 16 169/98 99 11/02/16 16:00 111 H 17 05/05/17 15:00 97.4 F L 93 16 195/104 98 11/02/16 12:19 97.4 F L 111 H 17 189/99 100 11/02/16 11:40 97.9 F 98 16 200/98 95 Intake and Output 11/02/16 11/03/16 11/03/16 22:59 06:59 14:59 Intake Total 470 400 400 Balance 470 400 400 Intake: Intake, IV Titration 150 400 Amount Sodium Chloride 0.9% 1, 150 400 000 ml @ 100 mls/hr IV . Q10H ONE Rx#:[id number] Oral 320 400 Other: # Voids 2 Weight 113.398 kg Results - Lab Results Most recent lab results Calcium 8.2 mg/dL (8.4-10.2) L 11/03/16 05:55 11/03/16 07:55 11/03/16 05:55 Assessment and Plan Plan: Assessment: #1. End-stage renal disease maintained on hemodialysis on a Saturday schedule via permacath. Last hemodialysis was on Saturday. #2. Nausea vomiting and abdominal pain related to diabetic gastroparesis and gastritis. Lipase level was also high at 609 on admission. #3. Hypokalemia maintained on potassium supplementation as an outpatient. This is related to recurrent GI losses. #4. Insulin-dependent diabetes mellitus. #5. Hypertension with chronic kidney disease. Partially related to pain. #6. Anemia of chronic kidney disease. Rule out iron deficiency. Plan: Hemodialysis today with goal 2 L of hydration. Maintain potassium supplementation. 20 mEq daily. Check phosphorus level. Check iron studies. Increase lisinopril to 40 mg daily. Expect further improvement with blood pressure after dialysis as well as pain control. Thank you for the consultation. I will continue to follow the patient with you during his hospital stay.
[2016-11-03 10:40] LABS: Phosphorous 5.7 mg/dL (2.5-4.5)
[2016-11-03 10:49] LABS: % Iron Saturation 20.3 % (20-50)
--- NOTE | 2016-11-03 11:48 | PN ---
A 26-year-old admitted with gastroparesis and nausea, vomiting. Patient is still nauseous, does not feel like he is ready to be discharged yet and patient will undergo hemodialysis today. Will watch him one more night. REVIEW OF SYSTEMS: CARDIOVASCULAR: No chest pain, no orthopnea, no PND, no palpitations. PULMONARY: Denied any shortness of breath. No cough or hemoptysis. ABDOMINAL: Continued abdominal pain, although vomiting improved. Still nauseous. NEUROLOGIC: No headaches, no weakness, no numbness. Medications were reviewed. PHYSICAL EXAMINATION: VITAL SIGNS: Temperature is 97.0, pulse 79, respiratory rate 16, blood pressure 166/93, saturating at 100% on room air. GENERAL: The patient is alert and oriented x3, not in any acute distress. Well developed, well nourished. HEENT: Pupils are round and equally reacting to light. EOMI. No scleral icterus. No conjunctival pallor. Normocephalic, atraumatic. No pharyngeal erythema. No thyromegaly. CARDIOVASCULAR: S1 and S2 present. No murmurs, rubs, or gallops. PULMONARY: Chest is clear to auscultation, no wheezing or crackles. ABDOMEN: Soft, nontender, nondistended, normoactive bowel sounds. No palpable organomegaly. MUSCULOSKELETAL: No joint swelling or deformity. EXTREMITIES: No cyanosis, clubbing, or pedal edema. NEUROLOGICAL: Gross neurological examination did not reveal any focal deficits. SKIN: No rashes. Laboratory data was reviewed. The patient's potassium is a bit low and BUN and creatinine are bit elevated. ASSESSMENT AND PLAN: 1. Nausea, vomiting, abdominal pain secondary to gastritis and gastroparesis. Continue with Protonix. Continue with pain medications. 2. End-stage renal disease, missed hemodialysis and will undergo hemodialysis today. 3. Elevated blood pressures secondary to possible noncompliance. 4. Diabetes mellitus with elevated blood sugars secondary to noncompliance. Patient was initiated back on his regimen. 5. Accelerated hypertension. The patient was resumed back on his home medications with improved blood pressure. 6. Cyclical vomiting syndrome. 7. 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 8. Type 1 diabetes mellitus without any diabetic ketoacidosis. 9. Diabetic neuropathy.
[2016-11-03 12:30] LABS: Glucose,Whole Blood 152 mg/dL (75-99)
[2016-11-03 17:06] LABS: Glucose,Whole Blood 101 mg/dL (75-99)
[2016-11-03] MEDS ORDERED: amLODIPine 5 MG TAB PO STA (18:33)
[2016-11-03] MEDS ORDERED: NITROGLYCERIN OINT 1 INCH/GM PACKET TOPICAL STA (18:33)
[2016-11-03] MEDS ORDERED: HEPARIN SODIUM,PORCINE 5,000 UNIT/ML 1 ML VIAL ONE (19:00)
[2016-11-03 20:50] LABS: Glucose,Whole Blood 169 mg/dL (75-99)
[2016-11-03] MEDS: INSULIN GLARGINE 100 UNIT/ML 10 ML VIAL SQ SCH (21:04)
[2016-11-04] MEDS: HYDROmorphone 1 MG/ML 1 ML SYRINGE IV PRN ×7 (01:36→22:48)
[2016-11-04 06:53] LABS: Anion Gap 6 mmol/L; Blood Urea Nitrogen 31 mg/dL (9-20); Calcium 8.3 mg/dL (8.4-10.2); Carbon Dioxide 32 mmol/L (22-30); Chloride 103 mmol/L (98-107); Glucose 107 mg/dL (74-99); Potassium 3.3 mmol/L (3.5-5.1); Sodium 141 mmol/L (137-145)
[2016-11-04 06:58] LABS: Non-African American GFR(MDRD) 12 (>60 ml/min/1.73 sqM)
[2016-11-04 07:22] LABS: Hepatitis B Surface Ag Index 0.06
[2016-11-04 07:32] LABS: Glucose,Whole Blood 103 mg/dL (75-99)
[2016-11-04] MEDS: INSULIN LISPRO (humaLOG) 300 UNIT/3 ML VIAL SQ SCH ×3 (07:34→17:06)
[2016-11-04] MEDS ORDERED: POTASSIUM CHLORIDE ER 20 MEQ TAB.ER PO STA (07:37)
[2016-11-04 07:46] LABS: Hepatitis B Surface Antibody Negative (Negative)
[2016-11-04] MEDS: LISINOPRIL 20 MG TAB PO SCH (08:19)
[2016-11-04] MEDS: METOPROLOL TARTRATE 50 MG TAB PO SCH ×2 (08:19→21:29)
[2016-11-04] MEDS: METOCLOPRAMIDE 5 MG TAB PO SCH ×3 (08:20→21:29)
[2016-11-04] MEDS: buPROPion SR 150 MG TABLET.ER PO SCH ×2 (08:20→21:30)
[2016-11-04] MEDS: POTASSIUM CHLORIDE ER 20 MEQ TAB.ER PO SCH (08:20)
[2016-11-04] MEDS: amLODIPine 5 MG TAB PO SCH (08:20)
[2016-11-04] MEDS: HYDROcodone/APAP 7.5-325MG 1 EACH TAB PO PRN (08:51)
[2016-11-04] MEDS ORDERED: DARBEPOETIN ALFA 40 MCG/0.4 ML SYRINGE SQ SCH (09:00)
[2016-11-04] MEDS: SODIUM FERRIC GLUCONAT-SUCROSE 125 MG in SODIUM CHLORIDE 0.9% 100 ML IVPB SCH (09:06)
--- NOTE | 2016-11-04 09:08 | P.PN ---
Subjective Patient is seen in follow-up for end-stage renal disease. He is maintained on hemodialysis on a Saturday schedule. He missed Saturday and therefore underwent hemodialysis on Saturday. He tolerated the procedure well. He continues to have abdominal pain. He did have an episode of vomiting last night. He still on clear liquid diet and seems to be tolerating it well. Denies chest pain or shortness of breath. Vital signs are stable. General: The patient appeared well nourished and normally developed. HEENT: Head exam is unremarkable. Neck is without jugular venous distension. LUNGS: Lungs are clear to auscultation and percussion. Breath sounds decreased. HEART: Rate and Rhythm are regular. First and second heart sounds normal. No murmurs, rubs or gallops. ABDOMEN: Abdominal exam reveals normal bowel sounds. Non-tender and non- distended. No evidence of peritonitis. EXTREMITITES: No clubbing, cyanosis, or edema. Objective - Vital Signs Vital signs: Vital Signs Temp 97.0 F L 11/04/16 07:00 Pulse 74 11/04/16 07:00 Resp 16 11/04/16 07:00 BP 188/111 11/04/16 07:00 Pulse Ox 95 11/04/16 07:00 Intake & Output 11/03/16 11/04/16 11/04/16 18:59 06:59 18:59 Intake Total 400 400 Balance 400 400 Intake: Oral 400 400 Other: # Voids 2 1 - Labs CBC & Chem 7: 11/03/16 07:55 11/04/16 06:20 Labs: Abnormal Lab Results - Last 24 Hours (Table) 11/03/16 11/03/16 11/03/16 Range/Units 05:55 12:27 17:05 Potassium (3.5-5.1) mmol/L Carbon Dioxide (22-30) mmol/L BUN (9-20) mg/dL Creatinine (0.66-1.25) mg/dL Glucose (74-99) mg/dL POC Glucose (mg/dL) 152 H 101 H (75-99) mg/dL Calcium (8.4-10.2) mg/dL Phosphorus 5.7 H (2.5-4.5) mg/dL Iron 44 L (49-181) ug/dL TIBC 217 L (261-462) ug/dL Ferritin 492 H (18-464) ng/mL 11/03/16 11/04/16 11/04/16 Range/Units 20:49 06:20 07:28 Potassium 3.3 L (3.5-5.1) mmol/L Carbon Dioxide 32 H (22-30) mmol/L BUN 31 H (9-20) mg/dL Creatinine 5.67 H* (0.66-1.25) mg/dL Glucose 107 H (74-99) mg/dL POC Glucose (mg/dL) 169 H 103 H (75-99) mg/dL Calcium 8.3 L (8.4-10.2) mg/dL Phosphorus (2.5-4.5) mg/dL Iron (49-181) ug/dL TIBC (261-462) ug/dL Ferritin (18-464) ng/mL Assessment and Plan Plan: Assessment: #1. End-stage renal disease maintained on hemodialysis on a Saturday schedule via permacath. Last hemodialysis November 03. #2. Nausea vomiting and abdominal pain related to diabetic gastroparesis and gastritis. Lipase level was also high at 609 on admission. #3. Hypokalemia maintained on potassium supplementation as an outpatient. This is related to recurrent GI losses. Rule out magnesium deficiency. #4. Insulin-dependent diabetes mellitus. #5. Hypertension with chronic kidney disease. Partially related to pain. #6. Anemia of chronic kidney disease. Rule out iron deficiency. Plan: Hemodialysis Saturday with goal 2 L of hydration. Maintain potassium supplementation. Additional 40 mEq daily. Add renvela 800 mg TID with meals. Ferrlecit 125 mg IV daily for 3 days. First dose today. Start Aranesp. Check magnesium level. Add hydralazine 10 mg IV every 4 hours for systolic blood pressure greater than 160. Expect further improvement of blood pressure with pain control.
[2016-11-04 12:10] LABS: Glucose,Whole Blood 146 mg/dL (75-99)
[2016-11-04] MEDS: SEVELAMER 800 MG TAB PO SCH ×2 (12:17→19:43)
--- NOTE | 2016-11-04 16:43 | PN ---
DATE OF SERVICE: 11/04/2016 PRESENTING COMPLAINT: Nausea, vomiting, diarrhea. INTERVAL HISTORY: This is a 26-year-old male who was admitted with gastroparesis and nausea, vomiting and diarrhea. Patient's history is significant for diabetes mellitus, hypertension, renal failure on hemodialysis. Today patient does not feel well, unable to eat, remains on clear liquids. Review of systems done for constitutional, cardiovascular, gastrointestinal, pulmonary with relevant findings as above. CURRENT MEDICATIONS: [place], Norvasc, Wellbutrin, Aranesp, vitamin D2, ( ) sodium, hydromorphone, Lantus, Humalog, Zestril, Reglan, Lopressor, Zofran, potassium chloride, Renvela. PHYSICAL EXAMINATION: VITAL SIGNS: Temperature 98.6, pulse 82, respiratory rate 16, blood pressure 165/98, oxygen saturation 99% on room air. GENERAL APPEARANCE: Patient is awake, alert, sitting up in bed, looks uncomfortable. EYES: Pupils are round and reacting to light. No scleral icterus. NECK: JVD not raised. Mass not palpable. Respiratory effort normal. LUNGS: Diminished bases bilaterally. All other lung rodriguez clear to auscultation. CARDIOVASCULAR: S1, S2 sounds are normal. No edema noted. ABDOMEN: Soft, nontender. Liver and spleen not palpable. PSYCHIATRIC: Alert and oriented x3. Mood and affect are normal. INVESTIGATIONS: White blood cell count 18.2. Sodium 134, potassium 3.3, BUN 31, creatinine 5.67. Blood glucose monitoring 146. ASSESSMENT: 1. Nausea, vomiting, and abdominal pain secondary to gastritis and gastroparesis. Continue Protonix. Continue pain medication. 2. End-stage renal disease. Hemodialysis missed prior to admission. Most recent hemodialysis was done on Friday 11/03. Scheduled for additional hemodialysis on Sunday 11/05. 3. Hypertension. Continue lisinopril 4. Diabetes mellitus, elevated blood sugars secondary to noncompliance. Continue current regimen. 5. End-stage renal disease. 6. Diabetic neuropathy. PLAN: Continue Protonix. Continue pain medication for nausea, vomiting, and abdominal pain. End-stage renal disease patient is scheduled for regular scheduled dialysis appointment on Saturday11/05/2016. Continue patient on lisinopril for elevated blood pressure. Patient's gastroparesis is slow to respond to interventions.
[2016-11-04 17:03] LABS: Glucose,Whole Blood 80 mg/dL (75-99)
[2016-11-04 20:20] LABS: Glucose,Whole Blood 157 mg/dL (75-99)
[2016-11-04] MEDS: INSULIN GLARGINE 100 UNIT/ML 10 ML VIAL SQ SCH (21:27)
[2016-11-05] MEDS: HYDROmorphone 1 MG/ML 1 ML SYRINGE IV PRN ×3 (02:36→09:47)
[2016-11-05] MEDS: ONDANSETRON 4 MG/2 ML VIAL IVP PRN (06:19)
[2016-11-05 06:42] LABS: CH 27.7; CHCM 31.7; HCT 27.3 % (39.0-53.0); HDW 2.33; HGB 8.6 gm/dL (13.0-17.5); MCH 27.8 pg (25.0-35.0); MCHC 31.6 g/dL (31.0-37.0); MCV 87.8 fL (80.0-100.0); Mean Platelet Volume 6.7; RBC 3.11 m/uL (4.30-5.90); RDW 14.2 % (11.5-15.5); WBC 7.6 k/uL (3.8-10.6)
[2016-11-05 07:02] LABS: Calcium 8.6 mg/dL (8.4-10.2); Potassium 3.6 mmol/L (3.5-5.1); Total Bilirubin 0.5 mg/dL (0.2-1.3); Total Protein 5.6 g/dL (6.3-8.2)
--- NOTE | 2016-11-05 07:13 | PN ---
DATE OF SERVICE: 11/04/2016 ATTENDING NOTE: This patient was seen and examined by me. Patient still complaining of some nausea, on a liquid diet. Some abdominal pain is present. Looks rather comfortable at rest. On examination, afebrile. LUNGS: Fair air entry. CARDIOVASCULAR: First and second sounds normal. ABDOMEN: Soft. PSYCH: Alert and oriented x3. INVESTIGATIONS: Potassium 3.3. BUN 31, creatinine 5.67. ASSESSMENT: 1. Acute on chronic flareup of gastroparesis secondary to underlying diabetes mellitus type 2. 2. End-stage renal disease on hemodialysis. 3. Essential hypertension, uncontrolled. 4. Diabetes mellitus type 2, chronically on insulin. 5. Diabetes mellitus type 2 causing peripheral neuropathy 6. Depression, not otherwise specified. PLAN: Care was discussed with the patient. Continue current medication and treatment plan. Patient's diet to be advanced as tolerated. I agree with the note of the nurse practitioner except for the changes as above.
[2016-11-05 07:30] LABS: Glucose,Whole Blood 77 mg/dL (75-99)
[2016-11-05] MEDS: SEVELAMER 800 MG TAB PO SCH ×3 (07:52→16:57)
[2016-11-05] MEDS: amLODIPine 5 MG TAB PO SCH (07:52)
[2016-11-05] MEDS: INSULIN LISPRO (humaLOG) 300 UNIT/3 ML VIAL SQ SCH ×3 (07:52→17:41)
[2016-11-05] MEDS: buPROPion SR 150 MG TABLET.ER PO SCH ×2 (07:53→20:32)
[2016-11-05] MEDS: POTASSIUM CHLORIDE ER 20 MEQ TAB.ER PO SCH (07:53)
[2016-11-05] MEDS: METOPROLOL TARTRATE 50 MG TAB PO SCH ×2 (07:53→20:32)
[2016-11-05] MEDS: METOCLOPRAMIDE 5 MG TAB PO SCH ×3 (07:53→22:11)
[2016-11-05] MEDS: LISINOPRIL 20 MG TAB PO SCH (07:53)
[2016-11-05] MEDS: SODIUM FERRIC GLUCONAT-SUCROSE 125 MG in SODIUM CHLORIDE 0.9% 100 ML IVPB SCH (07:54)
[2016-11-05 11:50] LABS: Glucose,Whole Blood 104 mg/dL (75-99)
[2016-11-05] MEDS ORDERED: HEPARIN SODIUM,PORCINE 5,000 UNIT/ML 1 ML VIAL ONE (12:10)
[2016-11-05] MEDS: HYDROcodone/APAP 7.5-325MG 1 EACH TAB PO PRN ×3 (13:21→20:35)
--- NOTE | 2016-11-05 15:12 | P.CONS ---
History of Present Illness - Reason for Consult Consult date: 11/05/16 - History of Present Illness This is 26 years old male, was admitted to [facility], and pain management consultation was requested, patient had a history of end-stage renal disease, and is currently on hemodialysis, and he was admitted with a history of nausea and vomiting, and possible gastritis, and gastroparesis, patient currently on IV Dilaudid 1 mg every 3 hours, [place] 7.5/325 when necessary, he reports a current pain medication is not helping him to control his pain, and he is insisting on getting IV Dilaudid to control his pain, and he reported that the only medication helped his pain is IV Dilaudid Past Medical History Past Medical History: Asthma, Diabetes Mellitus, GERD/Reflux, Hypertension, Osteoarthritis (OA), Renal Disease Additional Past Medical History / Comment(s): IDDM type I, GASTROPARESIS, gastritis, esophagitis,cyclic vomiting syndrome, DKA episodes, hiatal hernia, as child had seizure r/t high fever, pancreatits(idiopathic), chronic kidney disease stage III-hemodialysis //Saturday-last hemo done 10/31/16, L leg neuropathy, migraines. History of Any Multi-Drug Resistant Organisms: MRSA Year Discovered:: MDRO Source:: CHIN/ Rt leg Past Surgical History: Cholecystectomy, Orthopedic Surgery, Tonsillectomy Additional Past Surgical History / Comment(s): R upper chest hemodialysis catheter, PICC line, LEFT ELBOW pinned, egd's w/ bx's last done 05-30-16. Past Anesthesia/Blood Transfusion Reactions: No Reported Reaction Past Psychological History: ADD/ADHD, Anxiety, Depression Additional Psychological History / Comment(s): Pt resides with his mother. He is independent. Smoking Status: Former smoker Past Alcohol Use History: None Reported Additional Past Alcohol Use History / Comment(s): Pt states he started smoking in 2006 and quit in 2011 Past Drug Use History: Marijuana Additional Drug Use History / Comment(s): pt states smokes marijuana a couple times per month - Past Family History Mother Family Medical History: Diabetes Mellitus Additional Family Medical History / Comment(s): heart problems-(pt not sure what they were) Father Family Medical History: Diabetes Mellitus Medications and Allergies Home Medications Medication Instructions Recorded Confirmed Type Insulin Glargine [Lantus] 18 unit SQ HS 06/06/15 11/02/16 History buPROPion SR [Wellbutrin SR] 150 mg PO BID 06/18/15 11/02/16 History amLODIPine [Norvasc] 5 mg PO DAILY 05/04/16 11/02/16 History INSULIN LISPRO (HumaLOG) [HumaLOG] 4 units SQ AC-TID 10/16/16 11/02/16 History Lisinopril [Zestril] 20 mg PO DAILY 10/16/16 11/02/16 History Metoclopramide HCl [Reglan] 5 mg PO TID 10/16/16 11/02/16 History Ranitidine HCl [Zantac] 150 mg PO HS 10/16/16 11/02/16 History Potassium Chloride ER [K-Dur 20] 20 meq PO DAILY 10/20/16 11/02/16 History Ergocalciferol (Vitamin D2) 50,000 unit PO MO 10/26/16 11/02/16 History [Vitamin D2] Hydrocodone/Acetaminophen [[place] 1 tab PO Q6HR PRN 10/27/16 11/02/16 History 5-325] Allergies Allergy/AdvReac Type Severity Reaction Status Date / Time No Known Allergies Allergy Verified 11/02/16 09:17 Physical Exam Vitals: Vital Signs Temp Pulse Resp BP Pulse Ox 11/05/16 07:00 98.2 F 82 16 198/117 98 11/04/16 20:58 98.3 F 88 16 156/90 99 11/04/16 19:51 88 160/92 11/04/16 16:00 16 Intake and Output 11/05/16 11/05/16 11/05/16 06:59 14:59 22:59 Intake Total 750 Balance 750 Intake: Oral 750 Other: Voiding Method Toilet Toilet # Voids 1 Social history : Quit smoking 5 years ago, uses marijuana occasionally , denies alcohol abuse Family history : , positive for mother and father has diabetes mellitus . Physical Examinations : 1-Constitutional : Cooperative , not in acute distress . 2-HEENT : nech ; supple , no Lymphadenopathy , no Thyromegaly , :eyes , no icterus, no photophobia . ENT : , normal oropharynx , no Thrush 3- Respiratory : Chest clear to auscultations Bilaterally , no wheezing . 4- Cardiovascular : regular rate and rhythem , S1 , S2 , no S3 , no S4. 5- Gastrointestinal: abdomen soft no tenderness , no organomegally . 6- Genitourinary : Defferred . 7-Integumentary : No cellulitis , no ulcers , normal skin turgor , no cyanotic . 8- neurologic : Cranial nerve II to XII intact , no focal neurological deffecit 9-psychatric : alert , oriented X 3 , appropriate affect , intact judgment and insight . 10-Lymphatic : no Lymphadenopathy. Results CBC & Chem 7: 11/05/16 06:10 11/05/16 06:10 Labs: Abnormal Lab Results - Last 24 Hours (Table) 11/04/16 11/05/16 11/05/16 Range/Units 20:14 06:10 06:10 RBC 3.11 L (4.30-5.90) m/uL Hgb 8.6 L (13.0-17.5) gm/dL Hct 27.3 L (39.0-53.0) % BUN 31 H (9-20) mg/dL Creatinine 6.80 H* (0.66-1.25) mg/dL POC Glucose (mg/dL) 157 H (75-99) mg/dL Total Protein 5.6 L (6.3-8.2) g/dL Albumin 2.4 L (3.5-5.0) g/dL 11/05/16 Range/Units 11:48 RBC (4.30-5.90) m/uL Hgb (13.0-17.5) gm/dL Hct (39.0-53.0) % BUN (9-20) mg/dL Creatinine (0.66-1.25) mg/dL POC Glucose (mg/dL) 104 H (75-99) mg/dL Total Protein (6.3-8.2) g/dL Albumin (3.5-5.0) g/dL Assessment and Plan Plan: Assessment and plan= nausea/vomiting/abdominal pain, mostly secondary to gastroparesis and gastritis, currently getting treatment , and is currently on IV Dilaudid, she is helping him control his pain, I recommend , once the acute phase resolved , patient should not need chronic pain medication, he need the treatment, for the gastritis and gastroparesis, Time with Patient: Less than 30
[2016-11-05] MEDS ORDERED: ERGOCALCIFEROL 50,000 UNIT CAP PO SCH (15:40)
--- NOTE | 2016-11-05 16:29 | PN ---
Patient is seen on hemodialysis. He is tolerating his treatment well. He states his abdominal pain is better. He is trying to eat a little bit more. Blood pressure remains elevated. We will try for about 3 liters today with dialysis. On examination, blood pressure is 198/117, heart rate 82 per minute. He is afebrile. EXAMINATION OF THE HEART: S1 and S2. EXAMINATION OF THE LUNGS: Decreased breath sounds in bases. ABDOMEN: Soft, nontender. Examination of lower extremities shows edema 2+ bilaterally. 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 Labs from today show potassium 3.6, hemoglobin 8.6 g/dL. ASSESSMENT: 1. End-stage renal disease, on hemodialysis on a Saturday, Saturday, Saturday schedule. 2. Volume overload. Increase UF as tolerated to about 3 liters. Blood pressure has improved with dialysis, and we will continue to increase UF. 3. Anemia of chronic disease. No active bleeding noted. 4. Diabetic gastroparesis. PLAN: Increase UF as tolerated with hemodialysis today. Continue potassium supplementation.
[2016-11-05 17:48] LABS: Glucose,Whole Blood 123 mg/dL (75-99)
[2016-11-05 20:31] LABS: Glucose,Whole Blood 173 mg/dL (75-99)
[2016-11-05] MEDS: INSULIN GLARGINE 100 UNIT/ML 10 ML VIAL SQ SCH (20:32)
--- NOTE | 2016-11-05 21:04 | CONS ---
DATE OF CONSULTATION: 11/05/2016 REASON FOR CONSULTATION: Abdominal pain, nausea, vomiting. HISTORY OF PRESENT ILLNESS: The patient is a 26-year-old -[place] male with multiple hospitalizations over the last several years. He has a long-standing history of diabetes mellitus, end-stage renal disease, on hemodialysis, and history of diabetic gastroparesis. The patient was admitted to the hospital because of worsening abdominal pain and nausea, vomiting for the last 3 days' duration. In the emergency room he was noted to have mild elevation of amylase and lipase. In the meantime, he was started on IV Protonix, Zofran, IV Reglan, and today his nausea is somewhat better. He is on a clear liquid diet, doing reasonably well. He still continues to complain of abdominal pain and he was receiving Dilaudid, which was discontinued this morning, and [place] was initiated as per Pain Management. Past medical history is significant for: 1. Diabetes mellitus. 2. Hypertension. 3. End-stage renal disease, on hemodialysis. 4. Gastroesophageal reflux disease. 5. Diabetic gastroparesis. 6. Anxiety. 7. Depression. PAST SURGICAL HISTORY: 1. Cholecystectomy. 2. Tonsillectomy. 3. Left elbow surgery. 4. Hemodialysis catheter placement. ALLERGIES: NONE. MEDICATIONS AT HOME: 1. Buspar. 2. Amlodipine. 3. Lisinopril. 4. Metoclopramide. 5. Ranitidine. 6. Potassium chloride. 7. Ergocalciferol. 8. [place]. 9. Metoprolol. 10. Zofran. 11. Insulin. SOCIAL HISTORY: Quit smoking in 2011. Occasional alcohol use. FAMILY HISTORY: Significant for diabetes mellitus in both mother and father. REVIEW OF SYSTEMS: CARDIOPULMONARY: No chest pain or shortness of breath. GENITOURINARY: No dysuria or hematuria. MUSCULOSKELETAL: Complains of back pain. NEUROLOGY: Unremarkable. PSYCHIATRIC: History of anxiety, depression. ENT/VISION: Unremarkable. CONSTITUTIONAL: No recent weight loss. No fevers, chills, night sweats. GI: As mentioned above. ENDOCRINE: History of diabetes mellitus. On physical examination, he appears comfortable. No apparent distress. Vital signs are stable. Blood pressure is 160/92, pulse rate 84 per minute and afebrile. HEENT: Unremarkable. Conjunctivae pink. Sclerae anicteric. Oral cavity with no lesions. NECK: No JVD or lymph node enlargement. Chest was clear to auscultation. HEART: Regular rate and rhythm. ABDOMEN: Soft, nondistended. Mild tenderness in the epigastric area. EXTREMITIES: No pedal edema. SKIN: No rashes. NEURO: Alert and oriented x3. No focal deficits. LABS: WBC 7.6, hemoglobin 8.6. Platelets are normal. BUN and creatinine are 31 and 6.8, respectively. Amylase and lipase were slightly elevated upon admission at 124 and 609, respectively. IMPRESSION: 1. This is a patient with a long-standing history of diabetes mellitus/diabetic gastroparesis, admitted to the hospital with abdominal pain, nausea, vomiting related to the same. He is currently on IV Reglan and Zofran, gradually improving. On clear liquid diet, tolerating well. 2. Nonspecific elevation of amylase and lipase but no clinical evidence of acute pancreatitis. 3. End-stage renal disease, on hemodialysis. RECOMMENDATIONS: 1. .Continue with symptomatic and supportive care. 2. I will increase to full liquid diet today and see how he does. 3. Pain medications as needed. Will follow the patient closely during his hospital stay. Thank you for this consultation.
--- NOTE | 2016-11-05 22:49 | PN ---
DATE OF SERVICE: 11/05/2016 PRESENTING COMPLAINT: Nausea, vomiting, diarrhea. INTERVAL HISTORY: This is a 26-year-old male who was admitted with gastroparesis and nausea, vomiting and diarrhea. Patient's history significant for diabetes mellitus, hypertension, renal failure on hemodialysis. Today patient complains of inability to eat food, although continues to complain and require IV pain medications. Review of systems done for constitutional, cardiovascular, gastrointestinal, pulmonary, with relevant findings as above. CURRENT MEDICATIONS: 1. [place]. 2. Norvasc. 3. Wellbutrin. 4. [place]. 5. Vitamin D2. 6. Lantus. 7. Humalog. 8. Desyrel. 9. Reglan. 10. Lopressor. 11. Zofran. 12. Potassium chloride. 13. Renvela. PHYSICAL EXAMINATION: VITAL SIGNS: Temperature 98.2, pulse 82, respiratory rate 16, blood pressure 156/90, oxygen saturation 98% on room air. GENERAL APPEARANCE: Patient is awake and receiving hemodialysis at the bedside, complaining of uncontrolled pain. Additionally complains of inability to eat food; however, complains of nausea only no vomiting no diarrhea. EYES: Pupils are equal. Conjunctivae normal. NECK: JVD not raised. Mass not palpable. Lungs diminished bases bilaterally, respiratory effort normal. Unlabored. CARDIOVASCULAR: S1, S2 normal, trace edema noted to bilateral lower extremities. ABDOMEN: Soft, nontender. Liver and spleen not palpable. PSYCHIATRY: Alert and oriented x3. Mood and affect flat to normal. INVESTIGATIONS: Hemoglobin 8.6, BUN 31, creatinine 6.80, glucose 104. ASSESSMENT: 1. Acute on chronic flare-up of gastroparesis secondary to underlying diabetes mellitus type 2. 2. End-stage renal disease on hemodialysis. 3. Essential hypertension, uncontrolled. 4. Diabetes mellitus, type II, chronically on insulin. 5. Diabetes mellitus type II, causing peripheral neuropathy. 6. Depression not otherwise specified. PLAN: Patient complained regarding unrelieved abdominal pain. Patient has been receiving IV medications for pain control. States that this is the only thing that works for him. Pain management consult performed. Dr. Allen performed a consult and his assessment is as follows: Once patient is through the acute phase of gastroparesis and gastritis, patient should not require the need for chronic pain medication. Patient requires treatment for gastritis and gastroparesis. We will convert patient to oral medications in the hopes of eliminating the need for IV push medications. We will continue to advance patient's diet as tolerated. The patient was seen and examined by a nurse practitioner Kristen Martínez and all elements of the case was discussed with attending, Dr. Clancy. I performed a history and physical examination of this patient and discussed the same with the dictator. I agree with the dictator's note. Any additional findings/opinions, etc. will be noted.
[2016-11-06] MEDS: HYDROcodone/APAP 7.5-325MG 1 EACH TAB PO PRN ×5 (00:38→16:27)
[2016-11-06] MEDS: ONDANSETRON 4 MG/2 ML VIAL IVP PRN ×2 (04:45→16:27)
[2016-11-06 06:32] LABS: CH 27.7; CHCM 31.5; HCT 26.1 % (39.0-53.0); HDW 2.29; HGB 8.2 gm/dL (13.0-17.5); MCH 27.8 pg (25.0-35.0); MCHC 31.6 g/dL (31.0-37.0); MCV 88.1 fL (80.0-100.0); Mean Platelet Volume 6.8; RBC 2.96 m/uL (4.30-5.90); RDW 14.3 % (11.5-15.5); WBC 5.3 k/uL (3.8-10.6)
[2016-11-06 06:58] LABS: Calcium 8.5 mg/dL (8.4-10.2); Potassium 3.8 mmol/L (3.5-5.1); Total Bilirubin 0.3 mg/dL (0.2-1.3); Total Protein 5.2 g/dL (6.3-8.2)
[2016-11-06 07:25] LABS: Glucose,Whole Blood 82 mg/dL (75-99)
[2016-11-06 07:46] VITALS: PULSE 86
[2016-11-06] MEDS: SEVELAMER 800 MG TAB PO SCH ×3 (08:50→16:29)
[2016-11-06] MEDS: INSULIN LISPRO (humaLOG) 300 UNIT/3 ML VIAL SQ SCH ×2 (08:50→12:38)
[2016-11-06] MEDS: POTASSIUM CHLORIDE ER 20 MEQ TAB.ER PO SCH (08:51)
[2016-11-06] MEDS: METOPROLOL TARTRATE 50 MG TAB PO SCH (08:51)
[2016-11-06] MEDS: LISINOPRIL 20 MG TAB PO SCH (08:51)
[2016-11-06] MEDS: buPROPion SR 150 MG TABLET.ER PO SCH (08:51)
[2016-11-06] MEDS: METOCLOPRAMIDE 5 MG TAB PO SCH ×2 (08:51→16:28)
[2016-11-06] MEDS: amLODIPine 5 MG TAB PO SCH (08:51)
[2016-11-06] MEDS: SODIUM FERRIC GLUCONAT-SUCROSE 125 MG in SODIUM CHLORIDE 0.9% 100 ML IVPB SCH (08:54)
[2016-11-06 11:16] LABS: Glucose,Whole Blood 134 mg/dL (75-99)
[2016-11-06 11:48] VITALS: BMI 39.3
--- NOTE | 2016-11-06 11:53 | P.PN ---
Subjective Principal diagnosis: Nausea vomiting abdominal pain 26-year-old male with a history of long-standing diabetes mellitus end-stage renal disease on hemodialysis gastro-paracystic admitted with intractable nausea vomiting and mid abdominal pain. Feels better this morning minimal abdominal discomfort. Tolerating full liquids. Afebrile. No emesis. Creatinine 6.4. White count 5.3. Lipase on admission 600 range; lipase not repeated. Liver chemistries were within normal limits. Receiving intravenous iron and Dilaudid. Objective - Vital Signs Vital signs: Vital Signs Temp 98.4 F 11/06/16 07:00 Pulse 86 11/06/16 08:00 Resp 17 11/06/16 08:00 BP 169/102 11/06/16 07:00 Pulse Ox 99 11/06/16 07:00 Intake & Output 11/05/16 11/06/16 11/06/16 18:59 06:59 18:59 Intake Total 850 598 Balance 850 598 Weight 114 kg 114 kg Intake: Intake, IV Titration 100 Amount Sodium Ferric Gluconat- 100 Sucrose 125 mg In Sodium Chloride 0.9% 100 ml @ 100 mls/hr IVPB DAILY [facility] Rx#:[id number] Oral 750 598 Other: Voiding Method Toilet Toilet Toilet # Voids 1 1 - Exam General appearance: The patient is alert, oriented, in no acute distress. HET: Head is normocephalic and atraumatic. Pupils are equal and reactive. Oropharynx is clear without lesions. Neck: Supple without lymphadenopathy. Trachea midline. Heart: S1 S2. Regular rate and rhythm. Lungs: No crackles or wheezes are heard. Abdomen: Soft, nontender, nondistended with bowel sounds. No peritoneal signs. No palpable organomegaly or masses. Extremities: Right upper extremity PICC line without erythema or drainage. Normal skin color and turgor. No cyanosis, rash, ulceration, clubbing, or edema. Radial and pedal pulses are 2/4 bilaterally. Neurological: No focal deficits. Strength and sensation are grossly intact. - Labs CBC & Chem 7: 11/06/16 06:20 11/06/16 06:20 Labs: Abnormal Lab Results - Last 24 Hours (Table) 11/05/16 11/05/16 11/05/16 Range/Units 11:48 17:40 20:10 RBC (4.30-5.90) m/uL Hgb (13.0-17.5) gm/dL Hct (39.0-53.0) % BUN (9-20) mg/dL Creatinine (0.66-1.25) mg/dL POC Glucose (mg/dL) 104 H 123 H 173 H (75-99) mg/dL AST (17-59) U/L Total Protein (6.3-8.2) g/dL Albumin (3.5-5.0) g/dL 11/06/16 11/06/16 11/06/16 Range/Units 06:20 06:20 11:15 RBC 2.96 L (4.30-5.90) m/uL Hgb 8.2 L (13.0-17.5) gm/dL Hct 26.1 L (39.0-53.0) % BUN 25 H (9-20) mg/dL Creatinine 6.40 H* (0.66-1.25) mg/dL POC Glucose (mg/dL) 134 H (75-99) mg/dL AST 15 L (17-59) U/L Total Protein 5.2 L (6.3-8.2) g/dL Albumin 2.2 L (3.5-5.0) g/dL Assessment and Plan (1) Nausea & vomiting Narrative/Plan: Chronic most likely secondary to gastroparesis Status: Acute (2) IDDM (insulin dependent diabetes mellitus) Status: Acute (3) Gastroparesis Status: Acute (4) ESRD (end stage renal disease) on dialysis Status: Acute (5) Abdominal pain Status: Acute (6) ESRD (end stage renal disease) Status: Acute (7) Elevated amylase and lipase Narrative/Plan: nonspecific no clear clinical evidence radha acute pancreatitis possible renal failure component to elevation. Status: Acute Plan: 1. Recommend advancement of diabetic diet with frequent small meals throughout the day for his history of gastroparesis. Advised discontinuing IV Dilaudid as it can exacerbate symptoms of nausea vomiting. Consider other alternatives for pain control; he is presently comfortable with minimal abdominal discomfort. 2. No further workup at this time. Repeat lipase in the a.m. We'll continue to follow. Continue with supportive measures, GI prophylaxis, and antinausea medications as needed. 3. Glycemic control. Assessment and plan of care discussed with Dr. Estrella.
--- NOTE | 2016-11-06 13:31 | PN ---
DATE OF SERVICE: 11/05/2016 ATTENDING NOTE: This patient was seen and examined by me yesterday on 11/05/16. I agree with the note of my nurse practitioner, Ms. Martínez, except for what I have dictated below. This patient is getting hemodialyzed today. I have known him for multiple admissions, always wanting IV pain medications. I spoke to Dr. Guerin from anesthesia. He said there is no indication for IV pain medications. This is simply gastritis and gastroparesis and the Dilaudid itself cane be causing the nausea. ON EXAMINATION: ABDOMEN: Soft, nontender. Patient is rather comfortable, sitting up on bed. Patient did tolerate a liquid diet. LABS: Potassium 3.8. ASSESSMENT: 1. Acute on chronic flareup of gastroparesis secondary to underlying diabetes type 2. 2. Nausea probably a side effect side pain medications. There is no indication for IV pain medication PLAN: I discussed with Dr. Guerin. There is no indication for IV pain medication. Patient has had multiple dozens of admissions requiring IV pain medications, which is really not indicated and this is probably making things worse for him; hence this was discontinued after discussion as per Dr. Allen. Will also check with GI.
[2016-11-06 15:56] VITALS: BP 187/115; RESP 16; TEMP 98
--- NOTE | 2016-11-06 19:36 | PN ---
DATE OF SERVICE: 11/06/2016 PRESENTING COMPLAINT: Nausea, vomiting, diarrhea. INTERVAL HISTORY: This is a 26-year-old male who was admitted with gastroparesis, nausea, vomiting and diarrhea. Patient's history is significant for diabetes mellitus, hypertension, renal failure, on hemodialysis. Today patient complains of continuing to not feel well, angry regarding cessation of IV push hydromorphone. Additionally he was angry because of continuation of cessation of hydrocodone. Patient complains that this does not work for him yet and still the pain management physician, Dr. Guerin, continued to order it for him. Patient's father is at the bedside. Review of systems is done for constitutional, cardiovascular, gastrointestinal, pulmonary, with relevant findings as above. CURRENT MEDICATIONS: 1. [place]. 2. Norvasc. 3. Wellbutrin. 4. Lopressor. 5. Renvela. PHYSICAL EXAMINATION: VITAL SIGNS: Temperature 98.4, pulse 86, respiratory rate 17, blood pressure 169/102, oxygen saturation 99% on room air. GENERAL APPEARANCE: Patient sitting up in bed, angry, frustrated with slow progress of current condition. EYES: Pupils equal. Conjunctivae normal. NECK: JVD not raised. Mass not palpable. LUNGS: Clear to auscultation bilaterally ( ) bases. Respiratory effort normal CARDIOVASCULAR: S1, S2 normal. No edema noted. ABDOMEN: Soft, nontender. Liver and spleen not palpable. PSYCHIATRIC: Alert and oriented x3. Mood and affect are normal. INVESTIGATIONS: Blood glucose 134. GI has seen the patient; recommends advancement of diabetic diet with frequent small meals throughout the day; recommends discontinuing IV Dilaudid, as it can exacerbate the symptoms of nausea and vomiting. No recommendations for further workup at this time. Repeat lipase in the morning. Glycemic control. ASSESSMENT: 1. Acute on chronic flareup of gastroparesis secondary to underlying diabetes mellitus, type 2. 2. End-stage renal disease, on hemodialysis. 3. Essential hypertension, uncontrolled. 4. Diabetes mellitus, type 2, chronically on insulin. 5. Diabetes mellitus, type 2, causing peripheral neuropathy. 6. Depression not otherwise specified. PLAN: Patient continues to complain of unrelieved abdominal pain. Please see dictated note from GI and their recommendations above under Investigations. IV Dilaudid has been stopped. [place] continues as pain management choice. GI is not currently recommending any further workups at this time. Will monitor lab work in the morning. Possible discharge on 11/07/2016. Patient was seen and examined by MADISON Martínez and all elements of the case were discussed with attending, Dr. Clancy.
--- NOTE | 2016-11-07 07:25 | PN ---
Patient is seen for follow-up for end-stage renal disease. He is normally maintained on a Saturday, Saturday, Saturday schedule for dialysis. The patient was dialyzed yesterday. He did have evidence of mild volume overload, which has improved. He continues to complain of abdominal pain, although he stated he is tolerated oral intake and has kept it down with no further episodes of vomiting. On examination, blood pressure 169/102, heart rate 86 per minute. He is afebrile. Examination of the heart S1 and S2. Examination of the lungs: Bilateral breath sounds are heard. Abdomen is soft, nontender. Examination of lower extremities shows no evidence of edema, currently. [employer] exam is grossly intact. Labs show sodium 137, potassium 3.8. Hemoglobin 8.2 g/dL. ASSESSMENT: 1. End-stage renal disease on hemodialysis on a Saturday, Saturday, Saturday schedule. 2. Abdominal pain, currently improved. 3. Pain medication seeking behavior. 4. Gastroparesis, slowly improving. PLAN: Hemodialysis tomorrow if patient is discharged. If patient is discharged he will follow up as outpatient for dialysis tomorrow.
--- NOTE | 2016-11-07 12:34 | DS ---
DATE OF ADMISSION: 11/02/2016 DATE OF DISCHARGE: 11/06/2016 FINAL DIAGNOSES: 1. Acute on chronic flare up of gastroparesis secondary to underlying diabetes mellitus type 2. 2. Endstage kidney disease on hemodialysis secondary to diabetes. 3. Essential hypertension, uncontrolled. 4. Diabetes mellitus type 2, chronically on insulin, causing peripheral neuropathy. 5. Depression, not otherwise specified. 6. Pain medication seeking behavior. CONSULTATIONS: 1. Dr. Олег Estrella from GI. 2. Dr. Roberts from Pain Management. 3. Dr. Martins from Nephrology. HOSPITAL COURSE: This patient presented with nausea, vomiting, known to have gastroparesis but like on multiple previous admissions wanted IV pain medication. I spoke to Nisha from GI. There is no indication of IV pain medication for abdominal pain. I also spoke to Dr. Roberts from Pain Management. There is no indication for IV Dilaudid and this was ( ) to the patient several times. On exam: ABDOMEN: Soft, nontender. Lungs are clear. CARDIOVASCULAR: First and second seconds normal. DISCHARGE MEDICATIONS: 1. Lantus 18 units subQ q.h.s. 2. Wellbutrin SR 150 mg p.o. b.i.d. 3. Lopressor 100 mg p.o. b.i.d. 4. Norvasc 5 mg p.o. daily. 5. Zofran 4 mg p.o. q.8 p.r.n. 6. Humalog 4 units subQ a.c. t.i.d. 7. Zestril 20 mg p.o. daily. 8. Reglan 5 mg p.o. t.i.d. 9. Zantac 150 mg q.h.s. 10. Potassium 20 mEq p.o. daily. 11. Vitamin D2 fifty thousand units on Mondays. 12. [place] 5 one tablet q.6 p.r.n. Follow up with Dr. Bailey on 11/09/2016. Follow up with Nephrology with hemodialysis.
== END 2016-11-06 18:35 | disposition home or self-care (01) | DRG 73 ==
LOC: EC 08:20 → 5MS5E 11:34
PROVIDERS: ADMIT Hospitalist; ATTEND Hospitalist
PROC: 5A1D60Z (ICD-10-PCS; principal; 2016-11-02)
DX: E10.43 Type 1 diabetes mellitus with diabetic autonomic (poly)neuropathy (principal); N18.6 End stage renal disease; I12.0 Hypertensive chronic kidney disease with stage 5 chronic kidney disease or end stage renal disease; E10.21 Type 1 diabetes mellitus with diabetic nephropathy; I48.91 Unspecified atrial fibrillation; E10.65 Type 1 diabetes mellitus with hyperglycemia; E87.70 Fluid overload, unspecified; G43.A0 Cyclical vomiting, in migraine, not intractable; E11.22 Type 2 diabetes mellitus with diabetic chronic kidney disease; K31.84 Gastroparesis; D63.1 Anemia in chronic kidney disease; Z79.4 Long term (current) use of insulin; E10.22 Type 1 diabetes mellitus with diabetic chronic kidney disease; E10.42 Type 1 diabetes mellitus with diabetic polyneuropathy; E87.6 Hypokalemia; F12.90 Cannabis use, unspecified, uncomplicated; F32.9 Major depressive disorder, single episode, unspecified; F41.9 Anxiety disorder, unspecified; K21.9 Gastro-esophageal reflux disease without esophagitis; K29.70 Gastritis, unspecified, without bleeding; Z76.5 Malingerer [conscious simulation]; Z79.899 Other long term (current) drug therapy; Z83.3 Family history of diabetes mellitus; Z91.19 Patient's noncompliance with other medical treatment and regimen; Z99.2 Dependence on renal dialysis; Z87.891 Personal history of nicotine dependence
CPT/HCPCS: 36415; 80048; 80053; 81001; 82009; 82150; 82728; 83540; 83550; 83690; 83735; 84100; 85025; 85027; 86704; 86706; 87340; 90935; 96361; 96374; 96375; 96376; 99285

== ENCOUNTER 2016-11-09 10:05 | Emergency (ER) | payer OTHER ==
[2016-11-09 11:10] LABS: Basophils % (A) 0 %; CH 27.5; CHCM 31.2; Eosinophils # (A) 0.2 k/uL (0-0.7); Eosinophils % (A) 3 %; HCT 27.1 % (39.0-53.0); HDW 2.29; HGB 8.3 gm/dL (13.0-17.5); Luc # (Auto) 0.16; Luc % (Auto) 2; Lymphocytes # (A) 1.5 k/uL (1.0-4.8); Lymphocytes % (A) 19 %; MCH 27.2 pg (25.0-35.0); MCHC 30.8 g/dL (31.0-37.0); MCV 88.4 fL (80.0-100.0); Monocytes # (A) 0.4 k/uL (0-1.0); Monocytes % (A) 5 %; Neutrophils # (A) 5.7 k/uL (1.3-7.7); Neutrophils % (A) 71 %; RBC 3.06 m/uL (4.30-5.90); RDW 14.7 % (11.5-15.5); WBC (Perox) 8.09
[2016-11-09 11:26] LABS: Calcium 8.4 mg/dL (8.4-10.2); Potassium 4.4 mmol/L (3.5-5.1); Total Bilirubin 0.4 mg/dL (0.2-1.3); Total Protein 5.9 g/dL (6.3-8.2)
[2016-11-09] MEDS ORDERED: HYDROmorphone 1 MG/ML 1 ML SYRINGE IVP STA (11:54)
[2016-11-09] MEDS ORDERED: ONDANSETRON 4 MG/2 ML VIAL IVP STA (11:54)
[2016-11-09] MEDS ORDERED: PANTOPRAZOLE 40 MG/10 ML VIAL IVP STA (11:55)
--- NOTE | 2016-11-09 11:57 | ED ---
Abdominal Pain HPI - General Chief Complaint: Abdominal Pain Stated Complaint: abdominal pain Source: patient Mode of arrival: wheelchair Limitations: no limitations - History of Present Illness Initial Comments: 26-year-old male with a past medical history of asthma, DM, GERD, HTN, OA, gastro-paresis, gastritis, esophagitis, end-stage renal disease state 3 on dialysis presenting for evlaution of abdominal pain with associated nausea and vomiting. He states he was admitted to this facility earlier this month for the same symptoms and was discharged "too soon". Immediately upon being discharged he was taken to another hospital by his father where he was also admitted. During this time he was receiving dialysis while being treated as an inpatient. He states at discharge his symptoms had not improved however he was not experiencing as much nausea and vomiting. He states the nausea and vomiting started again 2 days ago but acutely worsened last night. He states his abdominal pain is throughout his entire abdomen and describes it as an achy , throbbing, sharpness. There are no alleviating factors or provocative factors. He is unsure who is GI specialist is. Pain does not radiate and he rates the severity at a 10/10. This is is 16th visit this year for the same symptoms and has had multiple admissions as well. - Related Data Home Medications Medication Instructions Recorded Confirmed Insulin Glargine [Lantus] 18 unit SQ HS 06/06/15 11/09/16 buPROPion SR [Wellbutrin SR] 150 mg PO BID 06/18/15 11/09/16 amLODIPine [Norvasc] 5 mg PO DAILY 05/04/16 11/09/16 INSULIN LISPRO (HumaLOG) [HumaLOG] 4 units SQ AC-TID 10/16/16 11/09/16 Lisinopril [Zestril] 20 mg PO DAILY 10/16/16 11/09/16 Metoclopramide HCl [Reglan] 5 mg PO TID 10/16/16 11/09/16 Ranitidine HCl [Zantac] 150 mg PO HS 10/16/16 11/09/16 Potassium Chloride ER [K-Dur 20] 20 meq PO DAILY 10/20/16 11/09/16 Ergocalciferol (Vitamin D2) 50,000 unit PO MO 10/26/16 11/09/16 [Vitamin D2] Previous Rx's Medication Instructions Recorded Metoprolol Tartrate [Lopressor] 100 mg PO BID #60 tab 07/16/15 Ondansetron Odt [Zofran ODT] 4 mg PO Q8HR PRN #15 tab 08/03/16 HYDROcodone/APAP 7.5-325MG [[place] 1 tab PO Q4H PRN #30 tab 10/28/16 7.5-325] HYDROcodone/APAP 5-325MG [[place] 1 - 2 tab PO Q6HR PRN #14 tab 11/09/16 5-325] Allergies Allergy/AdvReac Type Severity Reaction Status Date / Time No Known Allergies Allergy Verified 11/09/16 10:26 Review of Systems ROS Statement: Those systems with pertinent positive or pertinent negative responses have been documented in the HPI. ROS Other: All systems not noted in ROS Statement are negative. Constitutional: Denies: fever, chills, weakness Eyes: Denies: eye pain, eye discharge, vision change ENT: Denies: ear pain, throat pain, hearing loss Respiratory: Denies: cough, dyspnea, wheezes, hemoptysis Cardiovascular: Denies: chest pain, palpitations, dyspnea on exertion, orthopnea Gastrointestinal: Reports: abdominal pain, nausea, vomiting. Denies: diarrhea, constipation, hematemesis, melena, hematochezia Genitourinary: Denies: urgency, dysuria, frequency Musculoskeletal: Denies: back pain, joint swelling, arthralgia Skin: Denies: rash, lesions Neurological: Denies: headache, weakness Psychiatric: Denies: anxiety, depression Hematological/Lymphatic: Denies: easy bleeding, easy bruising Past Medical History Past Medical History: Asthma, Diabetes Mellitus, GERD/Reflux, Hypertension, Osteoarthritis (OA), Renal Disease Additional Past Medical History / Comment(s): IDDM type I, GASTROPARESIS, gastritis, esophagitis,cyclic vomiting syndrome, DKA episodes, hiatal hernia, as child had seizure r/t high fever, pancreatits(idiopathic), chronic kidney disease stage III-hemodialysis //Saturday-last hemo done 10/31/16, L leg neuropathy, migraines. History of Any Multi-Drug Resistant Organisms: MRSA Date of last positivie culture/infection: MDRO Source:: CHIN/ Rt leg Past Surgical History: Cholecystectomy, Orthopedic Surgery, Tonsillectomy Additional Past Surgical History / Comment(s): R upper chest hemodialysis catheter, PICC line, LEFT ELBOW pinned, egd's w/ bx's last done 05-30-16. Past Anesthesia/Blood Transfusion Reactions: No Reported Reaction Past Psychological History: ADD/ADHD, Anxiety, Depression Additional Psychological History / Comment(s): Pt resides with his mother. He is independent. Smoking Status: Former smoker Past Alcohol Use History: None Reported Additional Past Alcohol Use History / Comment(s): Pt states he started smoking in 2006 and quit in 2011 Past Drug Use History: Marijuana Additional Drug Use History / Comment(s): pt states smokes marijuana a couple times per month - Past Family History Mother Family Medical History: Diabetes Mellitus Additional Family Medical History / Comment(s): heart problems-(pt not sure what they were) Father Family Medical History: Diabetes Mellitus General Exam Limitations: no limitations General appearance: alert, in distress, obese Head exam: Present: atraumatic, normocephalic, normal inspection Eye exam: Present: normal appearance, PERRL, EOMI. Absent: scleral icterus, conjunctival injection, periorbital swelling ENT exam: Present: normal exam, mucous membranes moist Neck exam: Present: normal inspection. Absent: tenderness, meningismus, lymphadenopathy Respiratory exam: Present: normal lung sounds bilaterally. Absent: respiratory distress, wheezes, rales, rhonchi, stridor Cardiovascular Exam: Present: regular rate, normal rhythm, normal heart sounds. Absent: systolic murmur, diastolic murmur, rubs, gallop, clicks GI/Abdominal exam: Present: soft, tenderness, normal bowel sounds, other (No pain when pressing stethoscope into abdomen during auscultation. Marked pain during palpation with hands.). Absent: distended, guarding, rebound, rigid Rectal exam: Present: deferred Extremities exam: Present: normal inspection, full ROM, normal capillary refill. Absent: tenderness, pedal edema, joint swelling, calf tenderness Back exam: Present: normal inspection, full ROM Neurological exam: Present: alert, oriented X3, CN II-XII intact Psychiatric exam: Present: normal affect, normal mood Skin exam: Present: warm, dry, intact, normal color. Absent: rash Course Vital Signs 11/09/16 11/09/16 10:10 11:43 Temperature 98.2 F 98.7 F Pulse Rate 89 91 Respiratory 20 20 Rate Blood Pressure 208/103 192/99 O2 Sat by Pulse 100 100 Oximetry Medical Decision Making - Medical Decision Making 26-year-old -[place] male with past medical history of insulin dependent diabetes type 1, gastroparesis, stage III chronic renal failure on dialysis without AV fistula yet presenting for evaluation of acute on chronic abdominal pain as well as nausea and vomiting. Patient states that he's had multiple previous ER visits and admissions for these symptoms. He was admitted to this facility and immediately on discharge was admitted to another outside hospital but states he has had no improvement in symptoms since discharge from either place. He is Abdominal Pain As Diffuse without Focality and the Nausea and Vomiting Has Worsened over the Last 2 Days. On Physical Examination His Abdomen Is Soft and Tender to Palpation but the Patient Shows No Signs of Distress When Pressing Stethoscope and Abdomen during Auscultation. He Is Distressed upon Entering the Room However. Given His Scenario past Medical History We'll Obtain Labs and Provide Pain Control As Well As Zofran for Vomiting. Labs are significant for a creatinine of 9.95 which is markedly elevated from previous values. He states that his last dialysis was 2 days ago that he is scheduled to have dialysis today around 2 PM. Otherwise there are no other significant abnormalities on labs. Patient was reevaluated after receiving pain control and Zofran and Protonix and stated that he was feeling much better however he was concerned about the recurrence of his nausea and vomiting when he got to dialysis. He was informed that he would be given IV Reglan prior to discharge and that he should keep his appointment with dialysis today. He was further advised to follow-up with his primary care physician as well as his GI specialist but to return to this facility if his symptoms should worsen or persist. The patient acknowledged an understanding of this information and agreed with this plan of care.Will provide pain control but pt states he has his own zofran at home. - Lab Data Result diagrams: 11/09/16 10:58 11/09/16 10:58 Lab Results 11/09/16 11/09/16 Range/Units 10:58 10:58 WBC 8.0 (3.8-10.6) k/uL RBC 3.06 L (4.30-5.90) m/uL Hgb 8.3 L (13.0-17.5) gm/dL Hct 27.1 L (39.0-53.0) % MCV 88.4 (80.0-100.0) fL MCH 27.2 (25.0-35.0) pg MCHC 30.8 L (31.0-37.0) g/dL RDW 14.7 (11.5-15.5) % Plt Count 274 (150-450) k/uL Neutrophils % 71 % Lymphocytes % 19 % Monocytes % 5 % Eosinophils % 3 % Basophils % 0 % Neutrophils # 5.7 (1.3-7.7) k/uL Lymphocytes # 1.5 (1.0-4.8) k/uL Monocytes # 0.4 (0-1.0) k/uL Eosinophils # 0.2 (0-0.7) k/uL Basophils # 0.0 (0-0.2) k/uL Sodium 141 (137-145) mmol/L Potassium 4.4 (3.5-5.1) mmol/L Chloride 109 H (98-107) mmol/L Carbon Dioxide 25 (22-30) mmol/L Anion Gap 7 mmol/L BUN 40 H (9-20) mg/dL Creatinine 9.95 H* (0.66-1.25) mg/dL Est GFR (MDRD) Af Amer 8 (>60 ml/min/1.73 sqM) Est GFR (MDRD) Non-Af 6 (>60 ml/min/1.73 sqM) Glucose 160 H (74-99) mg/dL Calcium 8.4 (8.4-10.2) mg/dL Total Bilirubin 0.4 (0.2-1.3) mg/dL AST 23 (17-59) U/L ALT 20 L (21-72) U/L Alkaline Phosphatase 110 (38-126) U/L Total Protein 5.9 L (6.3-8.2) g/dL Albumin 2.7 L (3.5-5.0) g/dL Lipase 25 (23-300) U/L 11/09/16 12:30 Sinus tachycardia with a ventricular rate of 101, CA interval 140, QRS 94, QT/ QTC 354/459. Disposition Clinical Impression: Abdominal pain, Nausea and vomiting, Acute on chronic renal failure Disposition: HOME SELF-CARE Condition: Stable Instructions: Abdominal Pain (ED) Additional Instructions: Please use medication as discussed. Please follow up with family doctor if symptoms have not improved over the next two days. Please return to the emergency room if your symptoms increase or worsen or for any other concerns. Prescriptions: HYDROcodone/APAP 5-325MG [Metter 5-325] 1 - 2 tab PO Q6HR PRN #14 tab PRN Reason: Analgesia Referrals: Myron Bailey DO [Primary Care Provider] - 1-2 days Time of Disposition: 12:33
[2016-11-09] MEDS ORDERED: METOCLOPRAMIDE 5 MG/ML 2 ML VIAL IVP STA (12:32)
[2016-11-09 12:51] VITALS: BP 189/98; PULSE 90; RESP 18; TEMP 98
== END 2016-11-09 12:50 | disposition home or self-care (01) ==
LOC: EC 10:05
DX: R10.84 Generalized abdominal pain (principal); R11.2 Nausea with vomiting, unspecified; I12.9 Hypertensive chronic kidney disease with stage 1 through stage 4 chronic kidney disease, or unspecified chronic kidney disease; N18.3 Chronic kidney disease, stage 3 (moderate); F41.9 Anxiety disorder, unspecified; E10.22 Type 1 diabetes mellitus with diabetic chronic kidney disease; K21.9 Gastro-esophageal reflux disease without esophagitis; Z99.2 Dependence on renal dialysis; Z87.19 Personal history of other diseases of the digestive system; Z86.14 Personal history of Methicillin resistant Staphylococcus aureus infection; Z87.891 Personal history of nicotine dependence; Z79.4 Long term (current) use of insulin; Z79.899 Other long term (current) drug therapy
CPT/HCPCS: 99284; 96374; 96375 ×3; 36415; 93005; 80053; 83690; 85025; J2765; J2405; J1170; C9113

== ENCOUNTER 2016-11-17 20:08 | Inpatient (IN) | payer OTHER ==
[2016-11-17 20:33] LABS: Glucose,Whole Blood 164 mg/dL (75-99)
[2016-11-17] MEDS ORDERED: PANTOPRAZOLE 40 MG/10 ML VIAL IVP STA (20:35)
[2016-11-17] MEDS ORDERED: SODIUM CHLORIDE 0.9% 500 ML IV STA (20:35)
[2016-11-17] MEDS ORDERED: ONDANSETRON 4 MG/2 ML VIAL IVP STA (20:35)
[2016-11-17] MEDS ORDERED: HYDROmorphone 1 MG/ML 1 ML SYRINGE IVP STA (20:35)
--- NOTE | 2016-11-17 20:46 | ED ---
General Adult HPI - General Chief complaint: Abdominal Pain Stated complaint: Nausea/Vomiting Time Seen by Provider: 11/17/16 20:22 Source: patient, RN notes reviewed, old records reviewed Mode of arrival: wheelchair Limitations: no limitations - History of Present Illness Initial comments: Chief complaint and history of present illness; is a 26-year-old male with frequent episodes of cyclical vomiting. The patient missed his dialysis yesterday because of vomiting. Complains of recurrent chronic abdominal pain. No blood in the vomit. - Related Data Home Medications Medication Instructions Recorded Confirmed Insulin Glargine [Lantus] 18 unit SQ HS 06/06/15 11/17/16 buPROPion SR [Wellbutrin SR] 150 mg PO BID 06/18/15 11/17/16 amLODIPine [Norvasc] 5 mg PO DAILY 05/04/16 11/17/16 INSULIN LISPRO (HumaLOG) [HumaLOG] 4 units SQ AC-TID 10/16/16 11/17/16 Lisinopril [Zestril] 20 mg PO DAILY 10/16/16 11/17/16 Metoclopramide HCl [Reglan] 5 mg PO TID 10/16/16 11/17/16 Ranitidine HCl [Zantac] 150 mg PO HS 10/16/16 11/17/16 Potassium Chloride ER [K-Dur 20] 20 meq PO DAILY 10/20/16 11/17/16 Ergocalciferol (Vitamin D2) 50,000 unit PO MO 10/26/16 11/17/16 [Vitamin D2] Previous Rx's Medication Instructions Recorded Metoprolol Tartrate [Lopressor] 100 mg PO BID #60 tab 07/16/15 Ondansetron Odt [Zofran ODT] 4 mg PO Q8HR PRN #15 tab 08/03/16 HYDROcodone/APAP 7.5-325MG [[place] 1 tab PO Q4H PRN #30 tab 10/28/16 7.5-325] HYDROcodone/APAP 5-325MG [[place] 1 - 2 tab PO Q6HR PRN #14 tab 11/09/16 5-325] Allergies Allergy/AdvReac Type Severity Reaction Status Date / Time No Known Allergies Allergy Verified 11/17/16 20:19 Review of Systems ROS Statement: Those systems with pertinent positive or pertinent negative responses have been documented in the HPI. Review of systems. No headache no visual acuity changes. No chest pain or shortness of breath patient has abdominal discomfort is epigastric to the suprapubic area. Nausea and vomiting with abdominal discomfort. No diarrhea. No neuro deficits. All systems are reviewed. Past medical problems significant for asthma, insulin-dependent diabetes mellitus, patient is receiving hemodialysis Saturday. He has GERD, hypertension, osteoarthritis, end-stage renal disease. The patient's surgeries include gallbladder, tonsillectomy he has a right PICC line and dialysis tubing in his right chest. Patient smokes marijuana. ROS Other: All systems not noted in ROS Statement are negative. Past Medical History Past Medical History: Asthma, Diabetes Mellitus, GERD/Reflux, Hypertension, Osteoarthritis (OA), Renal Disease Additional Past Medical History / Comment(s): IDDM type I, GASTROPARESIS, gastritis, esophagitis,cyclic vomiting syndrome, DKA episodes, hiatal hernia, as child had seizure r/t high fever, pancreatits(idiopathic), chronic kidney disease stage III-hemodialysis //Saturday-last hemo done 10/31/16, L leg neuropathy, migraines. History of Any Multi-Drug Resistant Organisms: MRSA Date of last positivie culture/infection: MDRO Source:: CHIN/ Rt leg Past Surgical History: Cholecystectomy, Orthopedic Surgery, Tonsillectomy Additional Past Surgical History / Comment(s): R upper chest hemodialysis catheter, PICC line, LEFT ELBOW pinned, egd's w/ bx's last done 05-30-16. Past Anesthesia/Blood Transfusion Reactions: No Reported Reaction Past Psychological History: ADD/ADHD, Anxiety, Depression Additional Psychological History / Comment(s): Pt resides with his mother. He is independent. Smoking Status: Former smoker Past Alcohol Use History: None Reported Additional Past Alcohol Use History / Comment(s): Pt states he started smoking in 2006 and quit in 2011 Past Drug Use History: Marijuana Additional Drug Use History / Comment(s): pt states smokes marijuana a couple times per month - Past Family History Mother Family Medical History: Diabetes Mellitus Additional Family Medical History / Comment(s): heart problems-(pt not sure what they were) Father Family Medical History: Diabetes Mellitus General Exam - General Exam Comments Initial Comments: General: The patient is awake and alert, states he's been vomiting at home for several hours. No blood in the vomit. Epigastric and lower abdominal pain. Typical of his cyclical vomiting episodes. Vital signs shows temperature 98.7 pulse 99 respiratory rate 18 pulse ox on percent room air blood pressure elevated 181 of 121. Eye: Pupils are equal, round and reactive to light, extra-ocular movements are intact ; there is normal conjunctiva bilaterally. No signs of icterus. Ears, nose, mouth and throat: There are moist mucous membranes and no oral lesions. Neck: The neck is supple, there is no tenderness . Cardiovascular: There is a regular rate and rhythm. No murmur, rub or gallop is appreciated. Respiratory: Lungs are clear to auscultation, respirations are non-labored, breath sounds are equal. No wheezes, stridor, rales, or rhonchi. Gastrointestinal: Frequent vomiting. No guarding with palpation, normoactive bowel sounds. Back: There is no tenderness to palpation in the midline. There is no obvious deformity. No rashes noted. Musculoskeletal: Normal ROM, no tenderness, There is no pedal edema. There is no calf tenderness or swelling. Sensation intact. Neurological: No neuro deficits Skin: Skin is warm and dry and no rashes or lesions are noted. Limitations: no limitations Course Vital Signs 11/17/16 11/17/16 11/17/16 20:18 21:26 21:46 Temperature 98.7 F Pulse Rate 99 104 H 88 Respiratory 18 18 Rate Blood Pressure 181/121 228/124 231/106 O2 Sat by Pulse 100 100 99 Oximetry 11/17/16 11/17/16 21:58 22:55 Temperature Pulse Rate 87 89 Respiratory 18 Rate Blood Pressure 211/98 233/123 O2 Sat by Pulse 99 99 Oximetry Medical Decision Making - Medical Decision Making Medical decision making the patient's white count is 8.9 hemoglobin 8 hematocrit of 25 BUN 47 creatinine 10.7 GFR 6. Glucose 164 with a potassium 3.1. Plasma to cats is only 1.2 last and was negative. The patient's case was discussed with Dr. Clancy. Patient be admitted his service for further evaluation treatment of cyclical vomiting, high blood pressure, hemodialysis. Consultation from Dr. Martins - Lab Data Result diagrams: 11/17/16 21:28 11/17/16 21:28 Lab Results 11/17/16 11/17/16 11/17/16 Range/Units 20:29 21:28 21:28 WBC 8.9 (3.8-10.6) k/uL RBC 2.92 L (4.30-5.90) m/uL Hgb 8.0 L (13.0-17.5) gm/dL Hct 25.5 L (39.0-53.0) % MCV 87.1 (80.0-100.0) fL MCH 27.5 (25.0-35.0) pg MCHC 31.5 (31.0-37.0) g/dL RDW 14.5 (11.5-15.5) % Plt Count 291 (150-450) k/uL Neutrophils % 69 % Lymphocytes % 17 % Monocytes % 9 % Eosinophils % 2 % Basophils % 0 % Neutrophils # 6.2 (1.3-7.7) k/uL Lymphocytes # 1.5 (1.0-4.8) k/uL Monocytes # 0.8 (0-1.0) k/uL Eosinophils # 0.2 (0-0.7) k/uL Basophils # 0.0 (0-0.2) k/uL Sodium 138 (137-145) mmol/L Potassium 3.1 L (3.5-5.1) mmol/L Chloride 102 (98-107) mmol/L Carbon Dioxide 27 (22-30) mmol/L Anion Gap 9 mmol/L BUN 47 H (9-20) mg/dL Creatinine 10.70 H* (0.66-1.25) mg/dL Est GFR (MDRD) Af Amer 7 (>60 ml/min/1.73 sqM) Est GFR (MDRD) Non-Af 6 (>60 ml/min/1.73 sqM) Glucose 164 H (74-99) mg/dL POC Glucose (mg/dL) 164 H (75-99) mg/dL POC Glu Informal Waiter/Waitress ID Doug Anabelle Plasma Lactic Acid Rakan (0.7-2.0) mmol/L Calcium 8.4 (8.4-10.2) mg/dL Total Bilirubin 0.5 (0.2-1.3) mg/dL AST 24 (17-59) U/L ALT 28 (21-72) U/L Alkaline Phosphatase 112 (38-126) U/L Total Protein 5.8 L (6.3-8.2) g/dL Albumin 2.9 L (3.5-5.0) g/dL Amylase 78 (30-110) U/L Lipase 87 (23-300) U/L Acetone, Qual Negative (Negative) 11/17/16 Range/Units 21:28 WBC (3.8-10.6) k/uL RBC (4.30-5.90) m/uL Hgb (13.0-17.5) gm/dL Hct (39.0-53.0) % MCV (80.0-100.0) fL MCH (25.0-35.0) pg MCHC (31.0-37.0) g/dL RDW (11.5-15.5) % Plt Count (150-450) k/uL Neutrophils % % Lymphocytes % % Monocytes % % Eosinophils % % Basophils % % Neutrophils # (1.3-7.7) k/uL Lymphocytes # (1.0-4.8) k/uL Monocytes # (0-1.0) k/uL Eosinophils # (0-0.7) k/uL Basophils # (0-0.2) k/uL Sodium (137-145) mmol/L Potassium (3.5-5.1) mmol/L Chloride (98-107) mmol/L Carbon Dioxide (22-30) mmol/L Anion Gap mmol/L BUN (9-20) mg/dL Creatinine (0.66-1.25) mg/dL Est GFR (MDRD) Af Amer (>60 ml/min/1.73 sqM) Est GFR (MDRD) Non-Af (>60 ml/min/1.73 sqM) Glucose (74-99) mg/dL POC Glucose (mg/dL) (75-99) mg/dL POC Glu Informal Waiter/Waitress ID Plasma Lactic Acid Rakan 1.2 (0.7-2.0) mmol/L Calcium (8.4-10.2) mg/dL Total Bilirubin (0.2-1.3) mg/dL AST (17-59) U/L ALT (21-72) U/L Alkaline Phosphatase (38-126) U/L Total Protein (6.3-8.2) g/dL Albumin (3.5-5.0) g/dL Amylase (30-110) U/L Lipase (23-300) U/L Acetone, Qual (Negative) Disposition Clinical Impression: Cyclical vomiting syndrome, Hypertension, Acute renal failure on dialysis Disposition: ADMITTED IP TO THIS HOSP Condition: Serious Referrals: Myron Bailey DO [Primary Care Provider] - 1-2 days
[2016-11-17] MEDS ORDERED: ENALAPRILAT 1.25 MG/ML 1 ML VIAL IVP STA (21:30)
[2016-11-17 21:40] LABS: Basophils % (A) 0 %; CH 27.9; CHCM 32.1; Eosinophils # (A) 0.2 k/uL (0-0.7); Eosinophils % (A) 2 %; HCT 25.5 % (39.0-53.0); HDW 2.34; Luc # (Auto) 0.21; Luc % (Auto) 2; Lymphocytes # (A) 1.5 k/uL (1.0-4.8); Lymphocytes % (A) 17 %; MCH 27.5 pg (25.0-35.0); MCHC 31.5 g/dL (31.0-37.0); MCV 87.1 fL (80.0-100.0); Mean Platelet Volume 6.6; Monocytes # (A) 0.8 k/uL (0-1.0); Monocytes % (A) 9 %; Neutrophils # (A) 6.2 k/uL (1.3-7.7); Neutrophils % (A) 69 %; RBC 2.92 m/uL (4.30-5.90); RDW 14.5 % (11.5-15.5); WBC 8.9 k/uL (3.8-10.6); WBC (Perox) 8.79
--- NOTE | 2016-11-17 21:47 | XR ---
EXAMINATION TYPE: XR abdomen 2V DATE OF EXAM: 11/17/2016 9:39 PM COMPARISON: NONE INDICATION: Abdomen pain TECHNIQUE: Single view abdomen FINDINGS: Catheter is noted in the chest with the tips in the region of the right atrium. No free air is under the diaphragm. Nonspecific bowel gas is present. Psoas margins are normal. No or ganomegaly is present. IMPRESSION: 1. Nonspecific abdomen.
[2016-11-17 21:58] LABS: ALT 28 U/L (21-72); AST 24 U/L (17-59); Alkaline Phosphatase 112 U/L (38-126); Amylase 78 U/L (30-110); Anion Gap 9 mmol/L; Blood Urea Nitrogen 47 mg/dL (9-20); Calcium 8.4 mg/dL (8.4-10.2); Carbon Dioxide 27 mmol/L (22-30); Chloride 102 mmol/L (98-107); Glucose 164 mg/dL (74-99); Potassium 3.1 mmol/L (3.5-5.1); Sodium 138 mmol/L (137-145); Total Bilirubin 0.5 mg/dL (0.2-1.3); Total Protein 5.8 g/dL (6.3-8.2)
[2016-11-17 22:01] LABS: Non-African American GFR(MDRD) 6 (>60 ml/min/1.73 sqM)
[2016-11-17] MEDS ORDERED: NALOXONE 0.4 MG/ML 1 ML VIAL IV PRN (22:54)
[2016-11-17] MEDS ORDERED: ONDANSETRON 4 MG/2 ML VIAL IVP PRN (22:54)
[2016-11-17] MEDS ORDERED: hydrALAZINE HCL 20 MG/ML 1 ML VIAL IVP STA (22:59)
[2016-11-17] MEDS ORDERED: SODIUM CHLORIDE 0.9% 1,000 ML IV SCH (23:00)
[2016-11-18] MEDS ORDERED: cloNIDine HCL 0.1 MG TAB PO STA (00:06)
[2016-11-18] MEDS: HYDROmorphone 1 MG/ML 1 ML SYRINGE IV PRN ×7 (00:11→21:12)
[2016-11-18 07:44] LABS: Glucose,Whole Blood 159 mg/dL (75-99)
[2016-11-18] MEDS: METOPROLOL TARTRATE 50 MG TAB PO SCH ×2 (08:24→20:40)
[2016-11-18] MEDS: PANTOPRAZOLE 40 MG/10 ML VIAL IV SCH (08:24)
[2016-11-18] MEDS: amLODIPine 5 MG TAB PO SCH (08:25)
[2016-11-18] MEDS: buPROPion SR 150 MG TABLET.ER PO SCH ×2 (08:25→20:41)
[2016-11-18] MEDS: POTASSIUM CHLORIDE ER 20 MEQ TAB.ER PO SCH ×3 (08:25→11:40)
[2016-11-18] MEDS: LISINOPRIL 20 MG TAB PO SCH (08:25)
[2016-11-18 08:29] LABS: Calcium 7.6 mg/dL (8.4-10.2)
[2016-11-18] MEDS ORDERED: Potassium Replacement Protocol 1 EACH MISC MISCELLANE PRN (08:46)
[2016-11-18] MEDS: INSULIN LISPRO (humaLOG) 300 UNIT/3 ML VIAL SQ SCH ×5 (09:06→21:48)
[2016-11-18] MEDS: POTASSIUM CHLORIDE 10 MEQ, LIDOCAINE 2% INJ 10 MG in SODIUM CHLORIDE 0.9% 100 ML IV SCH ×2 (09:36→10:55)
[2016-11-18 10:40] LABS: Basophils % (A) 0 %; CH 27.4; CHCM 31.3; Eosinophils # (A) 0.1 k/uL (0-0.7); Eosinophils % (A) 3 %; HDW 2.22; HGB 7.5 gm/dL (13.0-17.5); Luc % (Auto) 2; Lymphocytes # (A) 1.3 k/uL (1.0-4.8); Lymphocytes % (A) 24 %; MCH 28.6 pg (25.0-35.0); MCHC 32.5 g/dL (31.0-37.0); Mean Platelet Volume 7.2; Monocytes # (A) 0.5 k/uL (0-1.0); Monocytes % (A) 9 %; Neutrophils # (A) 3.6 k/uL (1.3-7.7); Neutrophils % (A) 63 %; RBC 2.62 m/uL (4.30-5.90); RDW 14.4 % (11.5-15.5); WBC 5.7 k/uL (3.8-10.6)
--- NOTE | 2016-11-18 11:15 | P.NPCON ---
History of Present Illness - Reason for Consult end stage renal disease - History of Present Illness Reason for consultation: End-stage renal disease History of present illness: Patient is a 26-year-old -[place] male seen in renal consultation for end-stage renal disease. He is maintained on hemodialysis on a Saturday schedule. Permacath. His last hemodialysis was on Saturday. He has been noncompliant with hemodialysis as an outpatient. Patient states he developed vomiting and abdominal pain that started 2-3 days ago and was progressively getting worse. Patient states he felt too sick to go to dialysis. He tends to have low potassium levels and is maintained on potassium supplementation as an outpatient as well. He is currently on a clear liquid diet. He denies chest pain. Abdominal pain is improved. His blood pressures were greater than 200 systolic on admission but are improved as home antihypertensives were resumed. His blood pressure from this morning is 155/ 93. Abdominal x-ray did not reveal any acute abnormalities. Vital signs are stable. General: The patient appeared well nourished and normally developed. HEENT: Head exam is unremarkable. Neck is without jugular venous distension. LUNGS: Lungs are clear to auscultation and percussion. Breath sounds decreased. HEART: Rate and Rhythm are regular. First and second heart sounds normal. No murmurs, rubs or gallops. ABDOMEN: Abdominal exam reveals normal bowel sounds. Non-tender and non- distended. No evidence of peritonitis. EXTREMITITES: No clubbing, cyanosis, or edema. Past Medical History Past Medical History: Asthma, Diabetes Mellitus, GERD/Reflux, Hypertension, Osteoarthritis (OA), Renal Disease Additional Past Medical History / Comment(s): IDDM type I, GASTROPARESIS, gastritis, esophagitis,cyclic vomiting syndrome, DKA episodes, hiatal hernia, as child had seizure r/t high fever, pancreatits(idiopathic), chronic kidney disease stage III-hemodialysis //Saturday-last hemo done 11/14/16, L leg neuropathy, migraines. History of Any Multi-Drug Resistant Organisms: MRSA Date of last positivie culture/infection: MDRO Source:: CHIN/ Rt leg Past Surgical History: Cholecystectomy, Orthopedic Surgery, Tonsillectomy Additional Past Surgical History / Comment(s): R upper chest hemodialysis catheter, PICC line, LEFT ELBOW pinned, egd's w/ bx's last done 05-30-16. Past Anesthesia/Blood Transfusion Reactions: No Reported Reaction Past Psychological History: ADD/ADHD, Anxiety, Depression Additional Psychological History / Comment(s): Pt resides with his mother. He is independent. Smoking Status: Former smoker Past Alcohol Use History: None Reported Additional Past Alcohol Use History / Comment(s): Pt states he started smoking in 2006 and quit in 2011 Past Drug Use History: Marijuana Additional Drug Use History / Comment(s): pt states smokes marijuana a couple times per month - Past Family History Mother Family Medical History: Diabetes Mellitus Additional Family Medical History / Comment(s): heart problems-(pt not sure what they were) Father Family Medical History: Diabetes Mellitus Medications and Allergies Home Medications Medication Instructions Recorded Confirmed Type Insulin Glargine [Lantus] 18 unit SQ HS 06/06/15 11/18/16 History buPROPion SR [Wellbutrin SR] 150 mg PO BID 06/18/15 11/18/16 History amLODIPine [Norvasc] 5 mg PO DAILY 05/04/16 11/18/16 History INSULIN LISPRO (HumaLOG) [HumaLOG] 4 units SQ AC-TID 10/16/16 11/18/16 History Lisinopril [Zestril] 20 mg PO DAILY 10/16/16 11/18/16 History Metoclopramide HCl [Reglan] 5 mg PO TID 10/16/16 11/18/16 History Ranitidine HCl [Zantac] 150 mg PO HS 10/16/16 11/18/16 History Potassium Chloride ER [K-Dur 20] 20 meq PO DAILY 10/20/16 11/18/16 History Ergocalciferol (Vitamin D2) 50,000 unit PO MO 10/26/16 11/18/16 History [Vitamin D2] Allergies Allergy/AdvReac Type Severity Reaction Status Date / Time No Known Allergies Allergy Verified 11/18/16 08:52 Physical Exam Vitals: Vital Signs Temp Pulse Pulse Resp BP BP Pulse Ox 11/18/16 07:00 98.8 F 87 16 155/93 99 11/18/16 01:19 97.5 F L 87 16 180/88 98 11/18/16 00:32 98.7 F 104 H 18 212/99 100 11/17/16 23:56 104 H 18 233/104 100 11/17/16 22:55 89 18 233/123 99 11/17/16 21:58 87 211/98 99 11/17/16 21:46 88 231/106 99 11/17/16 21:26 104 H 18 228/124 100 11/17/16 20:18 98.7 F 99 18 181/121 100 Intake and Output 11/17/16 11/18/16 11/18/16 22:59 06:59 14:59 Other: # Voids 1 Weight 114.305 kg Results - Lab Results Most recent lab results Calcium 7.6 mg/dL (8.4-10.2) L 11/18/16 07:40 Magnesium 3.0 mg/dL (1.6-2.3) H 11/18/16 07:40 11/18/16 07:40 11/18/16 07:40 Assessment and Plan Plan: Assessment: #1. End-stage renal disease maintained on hemodialysis on a Saturday schedule via permacath. #2. Noncompliance. Hemodialysis as an outpatient. #3. Nausea vomiting and abdominal pain related to diabetic gastroparesis. Abdominal x-ray benign. #4. Hypokalemia related to poor oral intake and GI losses. Magnesium replete. #5. Insulin-dependent diabetes mellitus. #6. Hypertension with chronic kidney disease. Better controlled. #7. Chronic kidney disease mineral bone disease. #8. Anemia of chronic kidney disease. Rule out iron deficiency. Plan: Hemodialysis tomorrow with goal 2-3 L ultrafiltration. Potassium is being replaced. While he is on clear liquids, I will change his IV fluids to half-normal saline to be run at 50 mL an hour. Hep-Lock IV fluids as oral intake improves. Start Aranesp. Check iron studies. Check phosphorus level. Thank you for the consultation. I will continue to follow the patient with you during his hospital stay.
[2016-11-18] MEDS: SODIUM CHLORIDE 0.45% 1,000 ML IV SCH (11:41)
[2016-11-18 11:48] LABS: Phosphorous 5.8 mg/dL (2.5-4.5)
[2016-11-18 11:57] LABS: % Iron Saturation 19.3 % (20-50)
[2016-11-18] MEDS ORDERED: DARBEPOETIN ALFA 40 MCG/0.4 ML SYRINGE SQ SCH (12:00)
[2016-11-18 12:17] LABS: Hemoglobin A1C 7.8 % (4.2-6.1)
[2016-11-18 12:47] LABS: Glucose,Whole Blood 137 mg/dL (75-99)
[2016-11-18] MEDS: ONDANSETRON 4 MG/2 ML VIAL IVP PRN ×2 (15:33→21:54)
[2016-11-18] MEDS ORDERED: ENOXAPARIN 40 MG/0.4 ML SYRINGE SQ SCH (16:00)
[2016-11-18] MEDS: ENOXAPARIN 30 MG/0.3 ML SYRINGE SQ SCH (16:33)
[2016-11-18] MEDS: METOCLOPRAMIDE 5 MG TAB PO SCH (16:34)
--- NOTE | 2016-11-18 16:44 | HP ---
DATE OF ADMISSION: 11/18/2016 PRESENTING COMPLAINT: Nausea, vomiting, abdominal pain. HISTORY OF PRESENTING COMPLAINT: This is a patient well known to me from multiple admissions. Patient with chronic stable medical conditions include hypertension, esophagitis, gastroparesis, chronic kidney disease, now on hemodialysis. Patient yet again presents with nausea, vomiting, some abdominal pain and because could not take his pain medications, getting IV Dilaudid. The patient stated he could not keep anything down at home. REVIEW OF SYSTEMS: CONSTITUTIONAL: Tired. HEENT: None. RESPIRATORY: None. CARDIOVASCULAR: None. GASTROINTESTINAL: As above. GENITOURINARY: None. MUSCULOSKELETAL: None. Dermatological: None. HEMATOLOGICAL: None. LYMPHATICS: None. PSYCHIATRY: Anxiety. NEUROLOGICAL: None. PAST HISTORY: Diabetes mellitus, type II. GERD. Hypertension, gastroparesis. Esophagitis, chronic kidney disease on hemodialysis. PAST SURGICAL HISTORY: Tonsillectomy. PAST PSYCHIATRIC HISTORY: Anxiety, depression, ADHD. SOCIAL HISTORY: Lives with his parents. Marijuana occasionally. FAMILY HISTORY: Diabetes. ALLERGIES: None. HOME MEDICATIONS: 1. Wellbutrin SR 150 mg p.o. b.i.d. 2. Norvasc 5 mg p.o. daily. 3. Zantac 150 mg p.o. q.h.s. 4. Potassium 20 meq p.o. daily. 5. Zofran ODT 4 mg q.8 p.r.n. 6. Lopressor 100 mg p.o. b.i.d. 7. Reglan 5 mg p.o. t.i.d. 8. Zestril 20 mg p.o. daily. 9. Lantus 18 units subcu q.h.s. 10. Humalog 4 units subcu t.i.d. 11. [place] 7.5 1 tablets q.4 p.r.n. 12. [place] 5 1 tablets q.6 p.r.n. 13. Vitamin D2, 50,000 units p.o. Saturday. ALLERGIES: None. PHYSICAL EXAMINATION: Vital signs on presentation: Temperature 98.7, pulse 99, respirations 18, blood pressure 181/121, pulse ox 100% on room air. GENERAL APPEARANCE: Well built, BMI of 39.5. Lying in bed, not in discomfort. EYES: Pupils equal. Conjunctivae normal. HEENT: External appearance of nose and ears normal. Oral cavity normal. NECK: JVD not raised. Mass not palpable. RESPIRATORY: Effort normal. Lungs are clear. CARDIOVASCULAR: First and second sounds normal. No edema. ABDOMEN: Soft, nontender. Liver and spleen not palpable. LYMPHATICS: No lymph node palpable in the neck and axilla. PSYCHIATRY: Alert and oriented x3. Mood and affect normal. NEUROLOGICAL: Pupils equal. Cranial nerves grossly intact. Power and sensation grossly intact. INVESTIGATIONS: White count 8.9, hemoglobin 8.0, potassium 3.1. BUN 47, creatinine 10.7. Accu-Cheks are noted. Serum acetone negative. ASSESSMENT: 1. Acute flare-up of gastroparesis secondary to underlying diabetes mellitus type 2. 2. Gastroesophageal reflux disease. 3. Chronic esophagitis. 4. ( ) on hemodialysis. 5. Essential hypertension, controlled. 6. Autonomic dysfunction with underlying diabetes. 7. Obesity; body mass index of 39. 8. Depression not otherwise specified. PLAN: Patient's home medications are resumed. Nephrology is consulted. Patient is put on a clear liquids. Diet will be advanced as tolerated. The patient goes to recycle every so often. Care was discussed with the patient ( ) this will be resumed.
[2016-11-18 17:18] LABS: Glucose,Whole Blood 152 mg/dL (75-99)
[2016-11-18] MEDS: FAMOTIDINE 20 MG TAB PO SCH (20:41)
[2016-11-18 21:37] LABS: Glucose,Whole Blood 87 mg/dL (75-99)
[2016-11-18] MEDS: INSULIN GLARGINE 100 UNIT/ML 10 ML VIAL SQ SCH (21:48)
[2016-11-19] MEDS: HYDROmorphone 1 MG/ML 1 ML SYRINGE IV PRN ×8 (00:03→22:54)
[2016-11-19] MEDS: ONDANSETRON 4 MG/2 ML VIAL IVP PRN ×3 (04:58→18:33)
[2016-11-19] MEDS: INSULIN LISPRO (humaLOG) 300 UNIT/3 ML VIAL SQ SCH ×7 (07:38→21:45)
[2016-11-19 08:06] LABS: Glucose,Whole Blood 121 mg/dL (75-99)
[2016-11-19] MEDS: METOCLOPRAMIDE 5 MG TAB PO SCH ×3 (08:26→18:31)
[2016-11-19] MEDS: amLODIPine 5 MG TAB PO SCH (08:26)
[2016-11-19] MEDS: SODIUM CHLORIDE 0.45% 1,000 ML IV SCH (08:26)
[2016-11-19] MEDS: LISINOPRIL 20 MG TAB PO SCH (08:27)
[2016-11-19] MEDS: ENOXAPARIN 30 MG/0.3 ML SYRINGE SQ SCH (08:27)
[2016-11-19] MEDS: buPROPion SR 150 MG TABLET.ER PO SCH ×2 (08:27→21:05)
[2016-11-19] MEDS: PANTOPRAZOLE 40 MG/10 ML VIAL IV SCH (08:28)
[2016-11-19] MEDS: POTASSIUM CHLORIDE ER 20 MEQ TAB.ER PO SCH (08:28)
[2016-11-19] MEDS: METOPROLOL TARTRATE 50 MG TAB PO SCH ×2 (08:28→21:06)
[2016-11-19 08:42] LABS: Calcium 7.6 mg/dL (8.4-10.2); Potassium 3.5 mmol/L (3.5-5.1)
[2016-11-19] MEDS ORDERED: ERGOCALCIFEROL 50,000 UNIT CAP PO SCH (09:00)
[2016-11-19 09:36] LABS: Basophils % (A) 0 %; CH 27.8; CHCM 31.4; Eosinophils # (A) 0.1 k/uL (0-0.7); Eosinophils % (A) 2 %; HCT 25.6 % (39.0-53.0); HDW 2.28; HGB 7.9 gm/dL (13.0-17.5); Luc % (Auto) 2; Lymphocytes # (A) 1.2 k/uL (1.0-4.8); Lymphocytes % (A) 21 %; MCH 27.5 pg (25.0-35.0); MCHC 30.8 g/dL (31.0-37.0); MCV 89.1 fL (80.0-100.0); Monocytes # (A) 0.5 k/uL (0-1.0); Monocytes % (A) 8 %; Neutrophils # (A) 3.6 k/uL (1.3-7.7); Neutrophils % (A) 67 %; RBC 2.87 m/uL (4.30-5.90); RDW 14.4 % (11.5-15.5); WBC 5.5 k/uL (3.8-10.6); WBC (Perox) 5.99
--- NOTE | 2016-11-19 10:34 | P.PN ---
Subjective Patient is seen in follow-up for end-stage renal disease. He is maintained on hemodialysis on a Saturday schedule. His last hemodialysis was on Saturday. Patient states he was too sick to go to 4 dialysis treatments. He presented with vomiting as well as abdominal pain. He's maintain a clear liquid diet and still feels quite nauseous. He continues to complain of abdominal pain. Denies chest pain or shortness of breath. Vital signs are stable. General: The patient appeared well nourished and normally developed. HEENT: Head exam is unremarkable. Neck is without jugular venous distension. LUNGS: Lungs are clear to auscultation and percussion. Breath sounds decreased. HEART: Rate and Rhythm are regular. First and second heart sounds normal. No murmurs, rubs or gallops. ABDOMEN: Abdominal exam reveals normal bowel sounds. Non-tender and non- distended. No evidence of peritonitis. EXTREMITITES: No clubbing, cyanosis, or edema. Objective - Vital Signs Vital signs: Vital Signs Temp 99.3 F 11/19/16 07:00 Pulse 80 11/19/16 07:00 Resp 19 11/19/16 07:00 BP 183/99 11/19/16 07:00 Pulse Ox 97 11/19/16 07:00 Intake & Output 11/18/16 11/19/16 11/19/16 18:59 06:59 18:59 Intake Total 600 600 Output Total 1000 1300 Balance -400 -700 Intake: Intake, IV Titration 400 Amount Potassium Chloride 10 meq 200 Lidocaine 2% Inj 10 mg In Sodium Chloride 0.9% 100 ml @ 100 mls/hr IV Q1HR [facility] Rx#:[id number] Sodium Chloride 0.45% 1, 200 000 ml @ 50 mls/hr IV . Q20H [facility] Rx#:[id number] Oral 200 600 Output: Urine 1000 1000 Emesis 300 Other: Voiding Method Toilet Toilet Urinal Urinal # Voids 2 1 # Bowel Movements 0 - Labs CBC & Chem 7: 11/19/16 08:39 11/19/16 08:04 Labs: Abnormal Lab Results - Last 24 Hours (Table) 11/18/16 11/18/16 11/18/16 Range/Units 07:40 07:40 07:40 RBC 2.62 L (4.30-5.90) m/uL Hgb 7.5 L (13.0-17.5) gm/dL Hct 23.0 L (39.0-53.0) % MCHC (31.0-37.0) g/dL Sodium (137-145) mmol/L BUN (9-20) mg/dL Creatinine (0.66-1.25) mg/dL Glucose (74-99) mg/dL POC Glucose (mg/dL) (75-99) mg/dL Hemoglobin A1c 7.8 H (4.2-6.1) % Calcium (8.4-10.2) mg/dL Phosphorus (2.5-4.5) mg/dL Magnesium 3.0 H (1.6-2.3) mg/dL Iron (49-181) ug/dL TIBC (261-462) ug/dL % Saturation (20-50) % Ferritin (18-464) ng/mL 11/18/16 11/18/16 11/18/16 Range/Units 07:40 12:38 17:10 RBC (4.30-5.90) m/uL Hgb (13.0-17.5) gm/dL Hct (39.0-53.0) % MCHC (31.0-37.0) g/dL Sodium (137-145) mmol/L BUN (9-20) mg/dL Creatinine (0.66-1.25) mg/dL Glucose (74-99) mg/dL POC Glucose (mg/dL) 137 H 152 H (75-99) mg/dL Hemoglobin A1c (4.2-6.1) % Calcium (8.4-10.2) mg/dL Phosphorus 5.8 H (2.5-4.5) mg/dL Magnesium (1.6-2.3) mg/dL Iron 38 L (49-181) ug/dL TIBC 197 L (261-462) ug/dL % Saturation 19.3 L (20-50) % Ferritin 621 H (18-464) ng/mL 11/19/16 11/19/16 11/19/16 Range/Units 07:35 08:04 08:39 RBC 2.87 L (4.30-5.90) m/uL Hgb 7.9 L (13.0-17.5) gm/dL Hct 25.6 L (39.0-53.0) % MCHC 30.8 L (31.0-37.0) g/dL Sodium 136 L (137-145) mmol/L BUN 45 H (9-20) mg/dL Creatinine 10.89 H* (0.66-1.25) mg/dL Glucose 113 H (74-99) mg/dL POC Glucose (mg/dL) 121 H (75-99) mg/dL Hemoglobin A1c (4.2-6.1) % Calcium 7.6 L (8.4-10.2) mg/dL Phosphorus (2.5-4.5) mg/dL Magnesium (1.6-2.3) mg/dL Iron (49-181) ug/dL TIBC (261-462) ug/dL % Saturation (20-50) % Ferritin (18-464) ng/mL Assessment and Plan Plan: Assessment: #1. End-stage renal disease maintained on hemodialysis on a Saturday schedule via permacath. #2. Noncompliance with hemodialysis as an outpatient. #3. Nausea vomiting and abdominal pain related to diabetic gastroparesis. Abdominal x-ray benign. #4. Hypokalemia related to poor oral intake and GI losses. Magnesium replete. #5. Insulin-dependent diabetes mellitus. #6. Hypertension with chronic kidney disease. Better controlled. #7. Chronic kidney disease mineral bone disease. #8. Anemia of chronic kidney disease. Iron deficiency present. Plan: Hemodialysis today with goal 2-3 L ultrafiltration. Replace potassium. 40 mEq additional today. While he is on clear liquids, continue half-normal saline to be run at 50 mL an hour. Hep-Lock IV fluids as oral intake improves. Maintain Aranesp. Ferrlecit 125 mg IV daily for 3 days. First dose today. Add PhosLo with meals 3 times daily.
[2016-11-19] MEDS: CALCIUM ACETATE 667 MG CAP PO SCH ×2 (11:34→17:31)
[2016-11-19] MEDS: POTASSIUM CHLORIDE 10 MEQ, LIDOCAINE 2% INJ 10 MG in SODIUM CHLORIDE 0.9% 100 ML IVPB SCH ×3 (11:34→15:17)
[2016-11-19 12:25] LABS: Glucose,Whole Blood 159 mg/dL (75-99)
[2016-11-19] MEDS: ENALAPRILAT 1.25 MG/ML 1 ML VIAL IVP PRN ×2 (13:23→23:54)
[2016-11-19 14:05] LABS: Hepatitis B Surface Ag Index 0.06
[2016-11-19] MEDS: hydrALAZINE HCL 20 MG/ML 1 ML VIAL IVP PRN (15:49)
[2016-11-19 17:15] LABS: Glucose,Whole Blood 102 mg/dL (75-99)
[2016-11-19] MEDS: FAMOTIDINE 20 MG TAB PO SCH (21:05)
[2016-11-19 21:32] LABS: Glucose,Whole Blood 103 mg/dL (75-99)
[2016-11-19] MEDS: INSULIN GLARGINE 100 UNIT/ML 10 ML VIAL SQ SCH (21:45)
--- NOTE | 2016-11-19 23:14 | PN ---
DATE OF SERVICE: 11/19/2016 PRESENTING COMPLAINT: Nausea, vomiting and abdominal pain. INTERVAL HISTORY: This is a patient who presented with an acute flareup of gastroparesis secondary to underlying diabetes mellitus, type 2. Today patient is lying in bed, appears comfortable; however, he states he is nauseated and has not really has been able to keep much down. He has not been nauseated overnight. Review of systems done for constitutional, cardiovascular, GI, pulmonary, with relevant findings as above. CURRENT MEDICATIONS: 1. Norvasc 5 mg p.o. daily. 2. Wellbutrin 150 mg p.o. b.i.d. 3. PhosLo 667 mg p.o. t.i.d. with meals. 4. Aranesp 40 mcg subcutaneously every 7 days. 5. Vasotec 2.5 mg IV push q.6 hours p.r.n. 6. Vasotec 2.5 mg IV push q.6 hours. 7. Zestril 20 mg p.o. daily. 8. Lopressor 100 mg p.o. b.i.d. 9. Ondansetron 4 mg IV push q.6 hours. PHYSICAL EXAMINATION: VITAL SIGNS: Temperature 99.2, pulse 78, respiratory rate 21, blood pressure 202/121, oxygen saturation 99% on room air. GENERAL APPEARANCE: Patient looks relaxed. No acute distress noted. EYES: Pupils equal. Conjunctivae normal. NECK: JVD not raised. Mass not palpable. RESPIRATORY: Effort normal. LUNGS: Clear to auscultation. CARDIOVASCULAR: First and second sounds noted. No edema. ABDOMEN: Soft, nontender. Liver and spleen not palpable. PSYCHIATRY: Alert and oriented x3. Mood and affect normal. INVESTIGATIONS: White blood cell count 5.5, hemoglobin 7.9, platelet count 232. Blood glucose 159. Dr. Ho is following patient for dialysis treatment. ASSESSMENT: 1. Acute flareup of gastroparesis secondary to underlying diabetes mellitus, type 2, slow to respond. 2. Gastroesophageal reflux disease, stable. 3. Chronic esophagitis. 4. Essential hypertension, controlled. 5. Autonomic dysfunction with underlying diabetes. 6. Obesity; body mass index of 39. 7. Depression not otherwise specified. 8. End-stage renal disease, on hemodialysis. PLAN: Nephrology is following the patient, arranging hemodialysis for Saturday, Saturday, Saturday schedule. Patient remains on a clear liquid diet; unable to advance due to persistent nausea. No vomiting. Plan of care was discussed with the patient. Will follow. Patient seen and examined by nurse practitioner Kristen Martínez. All elements of the case discussed with attending Dr. Clancy.
[2016-11-20] MEDS: HYDROmorphone 1 MG/ML 1 ML SYRINGE IV PRN ×8 (01:32→22:18)
[2016-11-20] MEDS: SODIUM CHLORIDE 0.45% 1,000 ML IV SCH ×2 (05:30→22:21)
[2016-11-20] MEDS: ENALAPRILAT 1.25 MG/ML 1 ML VIAL IVP PRN (06:57)
[2016-11-20 07:43] LABS: Glucose,Whole Blood 93 mg/dL (75-99)
[2016-11-20] MEDS: METOPROLOL TARTRATE 50 MG TAB PO SCH ×2 (08:52→22:21)
[2016-11-20] MEDS: CALCIUM ACETATE 667 MG CAP PO SCH ×3 (08:52→18:33)
[2016-11-20] MEDS: POTASSIUM CHLORIDE ER 20 MEQ TAB.ER PO SCH (08:53)
[2016-11-20] MEDS: buPROPion SR 150 MG TABLET.ER PO SCH ×2 (08:53→22:20)
[2016-11-20] MEDS: LISINOPRIL 20 MG TAB PO SCH ×2 (08:53→22:21)
[2016-11-20] MEDS: SODIUM FERRIC GLUCONAT-SUCROSE 125 MG in SODIUM CHLORIDE 0.9% 100 ML IVPB SCH (08:53)
[2016-11-20] MEDS: METOCLOPRAMIDE 5 MG TAB PO SCH ×3 (08:53→18:33)
[2016-11-20] MEDS: amLODIPine 5 MG TAB PO SCH (08:53)
[2016-11-20] MEDS: PANTOPRAZOLE 40 MG/10 ML VIAL IV SCH (08:53)
[2016-11-20] MEDS: ENOXAPARIN 30 MG/0.3 ML SYRINGE SQ SCH (08:53)
[2016-11-20] MEDS: INSULIN LISPRO (humaLOG) 300 UNIT/3 ML VIAL SQ SCH ×7 (08:54→22:20)
[2016-11-20 10:04] LABS: Calcium 7.9 mg/dL (8.4-10.2); Potassium 3.5 mmol/L (3.5-5.1)
--- NOTE | 2016-11-20 11:23 | PN ---
DATE OF SERVICE: 11/19/2016 ATTENDING NOTE: This patient was seen and examined by me yesterday on 11/19/16. I reviewed the note of my nurse practitioner, Ms. Martínez, agreed and discussed with the same. Patient is feeling better, asking for more food. Lying in bed. On examination, blood pressure was 202/121. The patient does appear comfortable. LUNGS: Slightly decreased breath sounds. ABDOMEN: Soft, nontender. Liver and spleen not palpable. PSYCHIATRY: Awake, answering questions. INVESTIGATIONS: White count 5.5. Accu-Cheks noted. ASSESSMENT: 1. Acute flareup of gastroparesis secondary to underlying diabetes mellitus type 2, improving. 2. Gastroesophageal reflux disease. 3. Autonomic dysfunction with underlying diabetes. PLAN: Diet will be advanced. ( ) Nephrology is adjusting blood pressure medications.
--- NOTE | 2016-11-20 12:18 | P.PN ---
Subjective Patient is seen in follow-up for end-stage renal disease. He is maintained on hemodialysis on a Saturday schedule. His last hemodialysis was yesterday. Patient states he was too sick to go to dialysis treatments prior to admission. He presented with vomiting as well as abdominal pain. He's maintain a clear liquid diet and still feels quite nauseous. Feels slightly better compared to yesterday. Denies chest pain or shortness of breath. Vital signs are stable. General: The patient appeared well nourished and normally developed. HEENT: Head exam is unremarkable. Neck is without jugular venous distension. LUNGS: Lungs are clear to auscultation and percussion. Breath sounds decreased. HEART: Rate and Rhythm are regular. First and second heart sounds normal. No murmurs, rubs or gallops. ABDOMEN: Abdominal exam reveals normal bowel sounds. Non-tender and non- distended. No evidence of peritonitis. EXTREMITITES: No clubbing, cyanosis, or edema. Objective - Vital Signs Vital signs: Vital Signs Temp 99.5 F 11/20/16 07:00 Pulse 78 11/20/16 07:00 Resp 18 11/20/16 07:00 BP 173/98 11/20/16 09:53 Pulse Ox 97 11/20/16 07:00 Intake & Output 11/19/16 11/20/16 11/20/16 18:59 06:59 18:59 Other: Voiding Method Toilet Urinal # Voids 2 1 - Labs CBC & Chem 7: 11/19/16 08:39 11/20/16 09:07 Labs: Abnormal Lab Results - Last 24 Hours (Table) 11/19/16 11/19/16 11/19/16 Range/Units 12:23 17:01 21:30 Sodium (137-145) mmol/L BUN (9-20) mg/dL Creatinine (0.66-1.25) mg/dL Glucose (74-99) mg/dL POC Glucose (mg/dL) 159 H 102 H 103 H (75-99) mg/dL Calcium (8.4-10.2) mg/dL 11/20/16 Range/Units 09:07 Sodium 136 L (137-145) mmol/L BUN 26 H (9-20) mg/dL Creatinine 7.87 H* (0.66-1.25) mg/dL Glucose 109 H (74-99) mg/dL POC Glucose (mg/dL) (75-99) mg/dL Calcium 7.9 L (8.4-10.2) mg/dL Assessment and Plan Plan: Assessment: #1. End-stage renal disease maintained on hemodialysis on a Saturday schedule via permacath. #2. Noncompliance with hemodialysis as an outpatient. #3. Nausea vomiting and abdominal pain related to diabetic gastroparesis. Abdominal x-ray benign. #4. Hypokalemia related to poor oral intake and GI losses. Magnesium replete. #5. Insulin-dependent diabetes mellitus. #6. Hypertension with chronic kidney disease. Uncontrolled. Partially related to his gastroparesis flare. #7. Chronic kidney disease mineral bone disease. #8. Anemia of chronic kidney disease. Iron deficiency present. Plan: Hemodialysis tomorrow with goal 2-3 L ultrafiltration. While he is on clear liquids, continue half-normal saline to be run at 50 mL an hour. Hep-Lock IV fluids as oral intake improves. Maintain Aranesp. Ferrlecit 125 mg IV daily for 3 days. Second dose today. Maintain PhosLo with meals 3 times daily. Increase lisinopril to 20 mg twice daily.
[2016-11-20 12:49] LABS: Glucose,Whole Blood 126 mg/dL (75-99)
[2016-11-20] MEDS: ONDANSETRON 4 MG/2 ML VIAL IVP PRN (16:28)
[2016-11-20 17:44] LABS: Glucose,Whole Blood 131 mg/dL (75-99)
[2016-11-20 21:27] LABS: Glucose,Whole Blood 134 mg/dL (75-99)
[2016-11-20] MEDS: INSULIN GLARGINE 100 UNIT/ML 10 ML VIAL SQ SCH (22:20)
[2016-11-21] MEDS: HYDROmorphone 1 MG/ML 1 ML SYRINGE IV PRN ×7 (01:58→20:21)
[2016-11-21 07:36] LABS: Glucose,Whole Blood 78 mg/dL (75-99)
[2016-11-21] MEDS: ONDANSETRON 4 MG/2 ML VIAL IVP PRN ×2 (08:09→14:06)
[2016-11-21 08:56] VITALS: RESP 16
[2016-11-21] MEDS ORDERED: PANTOPRAZOLE 40 MG TABLET PO SCH (09:00)
[2016-11-21] MEDS: SODIUM FERRIC GLUCONAT-SUCROSE 125 MG in SODIUM CHLORIDE 0.9% 100 ML IVPB SCH (09:30)
[2016-11-21] MEDS: buPROPion SR 150 MG TABLET.ER PO SCH ×2 (09:31→21:03)
[2016-11-21] MEDS: ENOXAPARIN 30 MG/0.3 ML SYRINGE SQ SCH (09:31)
[2016-11-21] MEDS: CALCIUM ACETATE 667 MG CAP PO SCH ×3 (09:31→17:36)
[2016-11-21] MEDS: METOPROLOL TARTRATE 50 MG TAB PO SCH ×2 (09:31→21:03)
[2016-11-21] MEDS: amLODIPine 5 MG TAB PO SCH (09:31)
[2016-11-21] MEDS: POTASSIUM CHLORIDE ER 20 MEQ TAB.ER PO SCH (09:31)
[2016-11-21] MEDS: LISINOPRIL 20 MG TAB PO SCH ×2 (09:31→21:03)
[2016-11-21] MEDS: METOCLOPRAMIDE 5 MG TAB PO SCH ×3 (09:31→17:36)
[2016-11-21] MEDS: INSULIN LISPRO (humaLOG) 300 UNIT/3 ML VIAL SQ SCH ×7 (09:32→21:03)
--- NOTE | 2016-11-21 11:06 | PN ---
DATE OF SERVICE: 11/20/2016 PRESENTING COMPLAINT: Nausea, vomiting and abdominal pain. INTERVAL HISTORY: This is a patient who presented with an acute flareup of gastroparesis secondary to underlying diabetes mellitus, type 2. Today the patient continues to lie in his bed. He appears comfortable; however, he complains that he is nauseated. He has been able to keep down clear liquids and wants to try and advance today. Patient has a flat affect. Patient has not been nauseated overnight. Review of systems done for constitutional, cardiovascular, GI, pulmonary, with relevant findings as above. CURRENT MEDICATIONS: 1. Norvasc 5 mg p.o. daily. 2. Wellbutrin 150 mg p.o. b.i.d. 3. PhosLo 667 mg p.o. t.i.d. with meals. 4. Aranesp 40 mcg subcutaneously every 7 days. 5. Vasotec 2.5 mg IV push q.6 hours p.r.n. 6. Vasotec 2.5 mg IV push q.6 hours. 7. Zestril 20 mg p.o. daily. 8. Lopressor 100 mg p.o. b.i.d. 9. Ondansetron 4 mg IV push q.6 hours. PHYSICAL EXAMINATION: VITAL SIGNS: Temperature 99.5 pulse 78, respiratory rate 18, blood pressure 177/93, oxygen saturation 97% on room air. GENERAL APPEARANCE: Patient is lying in the bed, eyes closed, not interacting a whole lot. Seems lethargic. EYES: Pupils equal. Conjunctivae normal. NECK: JVD not raised. Mass not palpable. LUNGS: Diminished bilaterally. Respiratory effort normal. CARDIOVASCULAR: First and second sounds noted. No edema. ABDOMEN: Soft, nontender. Liver and spleen not palpable. PSYCHIATRY: Alert and oriented x3. Mood and affect are normal. INVESTIGATIONS: Sodium 136, potassium 3.5. BUN 26. Blood glucose 109. Calcium 7.9. ASSESSMENT: 1. Acute flareup of gastroparesis secondary to underlying diabetes mellitus, type 2, slow to respond. 2. Gastric esophageal reflux disease, stable. 3. Chronic esophagitis. 4. Essential hypertension, controlled. 5. Autonomic dysfunction with underlying diabetes. 6. Obesity; body mass index of 39. 7. Depression not otherwise specified. 8. End-stage renal disease, on hemodialysis. PLAN: Patient will receive an advanced diet at dinnertime tonight. If patient does not have any nausea or vomiting overnight, we will get patient ready for discharge tomorrow. Patient does have hemodialysis scheduled for Saturday with Dr. Ho. Patient was seen and examined by nurse practitioner, Kristen Martínez, and all elements of the case were discussed with attending, Dr. Clancy.
--- NOTE | 2016-11-21 11:09 | P.PN ---
Subjective Patient is seen in follow-up for end-stage renal disease. He is maintained on hemodialysis on a Saturday schedule. Patient states he was too sick to go to dialysis treatments prior to admission and missed 3 treatments prior to admission. He presented with vomiting as well as abdominal pain. He' s maintained on a soft diet and still feels quite nauseous. Feels slightly better compared to yesterday. Denies chest pain or shortness of breath. Still not able to tolerate much oral intake. Vital signs are stable. General: The patient appeared well nourished and normally developed. HEENT: Head exam is unremarkable. Neck is without jugular venous distension. LUNGS: Lungs are clear to auscultation and percussion. Breath sounds decreased. HEART: Rate and Rhythm are regular. First and second heart sounds normal. No murmurs, rubs or gallops. ABDOMEN: Abdominal exam reveals normal bowel sounds. Non-tender and non- distended. No evidence of peritonitis. EXTREMITITES: No clubbing, cyanosis, or edema. Objective - Vital Signs Vital signs: Vital Signs Temp 98.4 F 11/21/16 07:00 Pulse 83 11/21/16 07:00 Resp 16 11/21/16 07:00 BP 165/93 11/21/16 07:00 Pulse Ox 98 11/21/16 07:00 Intake & Output 11/20/16 11/21/16 11/21/16 18:59 06:59 18:59 Intake Total 1080 Output Total 800 Balance 280 Intake: Oral 1080 Output: Urine 800 Other: # Voids 4 - Labs CBC & Chem 7: 11/19/16 08:39 11/20/16 09:07 Labs: Abnormal Lab Results - Last 24 Hours (Table) 11/20/16 11/20/16 11/20/16 Range/Units 12:16 17:30 21:18 POC Glucose (mg/dL) 126 H 131 H 134 H (75-99) mg/dL Assessment and Plan Plan: Assessment: #1. End-stage renal disease maintained on hemodialysis on a Saturday schedule via permacath. #2. Noncompliance with hemodialysis as an outpatient. #3. Nausea vomiting and abdominal pain related to diabetic gastroparesis. Abdominal x-ray benign. #4. Hypokalemia related to poor oral intake and GI losses. Magnesium replete. #5. Insulin-dependent diabetes mellitus. #6. Hypertension with chronic kidney disease. Uncontrolled. Partially related to his gastroparesis flare. #7. Chronic kidney disease mineral bone disease. #8. Anemia of chronic kidney disease. Iron deficiency present. Plan: Hemodialysis today with goal 2-3 L ultrafiltration. While he is not tolerating oral intake, continue half-normal saline to be run at 50 mL an hour. Hep-Lock IV fluids as oral intake improves. Maintain Aranesp. Ferrlecit 125 mg IV daily for 3 days. Third dose today. Maintain PhosLo with meals 3 times daily. Maintain current antihypertensives. Pain control.
[2016-11-21 11:50] LABS: Glucose,Whole Blood 110 mg/dL (75-99)
[2016-11-21 16:30] VITALS: PULSE 81; TEMP 98.8
[2016-11-21 17:33] LABS: Glucose,Whole Blood 154 mg/dL (75-99)
[2016-11-21 20:21] VITALS: BP 191/121
[2016-11-21] MEDS: hydrALAZINE HCL 20 MG/ML 1 ML VIAL IVP PRN (20:22)
[2016-11-21] MEDS: INSULIN GLARGINE 100 UNIT/ML 10 ML VIAL SQ SCH (21:03)
[2016-11-21 21:05] LABS: Glucose,Whole Blood 91 mg/dL (75-99)
--- NOTE | 2016-11-21 21:40 | PN ---
DATE OF SERVICE: 11/20/2016 ATTENDING NOTE: This patient was seen and examined by me yesterday on 11/20/2016. I reviewed the note of my nurse practitioner, Ms. Martínez. I agreed and did discuss with her. This is a patient with diabetic gastroparesis on hemodialysis, nausea. Patient's diet has been advanced, eating better, been in bed, did get up to up to go to the bathroom. On examination, blood pressure 107/93, pulse ox 97% on room air. ABDOMEN: Soft, nontender. PSYCH: Alert and oriented x3. Comfortable, lying in bed. ASSESSMENT: 1. Acute diabetic gastroparesis, actually getting better. 2. End-stage kidney disease on hemodialysis. PLAN: Continue current medication and treatment plan. Hopefully, patient can be discharged tomorrow.
[2016-11-21] MEDS: SODIUM CHLORIDE 0.45% 1,000 ML IV SCH (22:08)
--- NOTE | 2016-11-22 18:33 | DS ---
DATE OF ADMISSION: 11/17/2016 DATE OF DISCHARGE: 11/21/2016 FINAL DIAGNOSES: 1. Acute flareup of gastroparesis secondary to underlying diabetes mellitus, type 2. 2. Gastroesophageal reflux disease. 3. Chronic kidney disease, on hemodialysis. 4. Chronic esophagitis. 5. Essential hypertension, controlled. 6. Autonomic dysfunction with underlying diabetes. 7. Obesity; body mass index of 39. 8. Depression not otherwise specified. CONSULTATION: Dr. Martins of Nephrology for hemodialysis. HOSPITAL COURSE: This is a patient who presented with an acute exacerbation of gastroparesis secondary to his diabetes. Patient was admitted to the hospital, provided IV fluids, IV pain medications. Patient was nauseated and provided anti-nausea medication. Patient's hemodialysis was provided. Nausea subsided some. Patient did tolerate some of his food. He stopped vomiting. Today patient is lying in bed, looking comfortable, waiting for his next dialysis treatment, anxious to go home. He states he feels better but still has some stomach upset. Discussed with the patient at length what foods he should eat and to take it easy. Patient verbalized understanding. PHYSICAL EXAMINATION: ABDOMEN: Soft, nontender to palpation. Positive bowel sounds in all 4 quadrants. CARDIOVASCULAR: First and second sounds noted. No edema. DISCHARGE MEDICATIONS: 1. Lantus 18 units subcutaneously at bedtime. 2. Wellbutrin 150 mg p.o. b.i.d. 3. Metoprolol 100 mg p.o. b.i.d. 4. Norvasc 5 mg p.o. daily. 5. Zofran 4 mg p.o. every 8 hours. 6. Lisinopril 20 mg p.o. daily. 7. Reglan 5 mg p.o. t.i.d. 8. Zantac 150 mg p.o. at bedtime. 9. Potassium chloride 20 mEq p.o. daily. 10. Vitamin D2 50,000 units p.o. on Mondays. 11. [place] 7.5/325 one tablet p.o. q.4 hours p.r.n. 12. [place] 5/325 one to two tablets p.o. q.6 hours p.r.n. 13. PhosLo 667 mg p.o. t.i.d. with meals. Follow up with Dr. Myron Bailey on 11/27/2016. DISCHARGE TIME: More than 35 minutes, including discussion. Patient was seen and examined by nurse practitioner Kristen Martínez, and all elements of the case were discussed with Dr. Clancy, attending.
--- NOTE | 2016-11-23 09:40 | DS ---
DATE OF ADMISSION: 11/17/2016 DATE OF DISCHARGE: 11/21/2016 ATTENDING NOTE: This patient was seen and examined by me on 11/21/2016. I reviewed the note of my nurse practitioner and discharge summary. Discussed and agreed. This is patient who presented with flare-up of gastroparesis. Patient is on hemodialysis. Patient is tolerating his diet by the time of discharge. On examination: ABDOMEN: Soft, nontender. LUNGS: Clear. Followup discharge medications as arranged. See the note.
== END 2016-11-21 22:07 | disposition home or self-care (01) | DRG 73 ==
LOC: EC 20:08 → 4MS4W 23:01
PROVIDERS: ADMIT Hospitalist; ATTEND Hospitalist
PROC: 5A1D60Z (ICD-10-PCS; principal; 2016-11-19)
DX: E11.43 Type 2 diabetes mellitus with diabetic autonomic (poly)neuropathy (principal); N18.6 End stage renal disease; I12.0 Hypertensive chronic kidney disease with stage 5 chronic kidney disease or end stage renal disease; E11.22 Type 2 diabetes mellitus with diabetic chronic kidney disease; F32.9 Major depressive disorder, single episode, unspecified; K31.84 Gastroparesis; Z79.4 Long term (current) use of insulin; K21.0 Gastro-esophageal reflux disease with esophagitis; E61.1 Iron deficiency; E66.9 Obesity, unspecified; Z68.39 Body mass index [BMI] 39.0-39.9, adult; D63.1 Anemia in chronic kidney disease; M19.91 Primary osteoarthritis, unspecified site; F41.9 Anxiety disorder, unspecified; K44.9 Diaphragmatic hernia without obstruction or gangrene; E87.6 Hypokalemia; F12.90 Cannabis use, unspecified, uncomplicated; F90.9 Attention-deficit hyperactivity disorder, unspecified type; J45.909 Unspecified asthma, uncomplicated; Z99.2 Dependence on renal dialysis; Z83.3 Family history of diabetes mellitus; Z91.19 Patient's noncompliance with other medical treatment and regimen; Z87.891 Personal history of nicotine dependence; Z79.899 Other long term (current) drug therapy
CPT/HCPCS: 36415; 74020; 80048; 80053; 82009; 82150; 82728; 83036; 83540; 83550; 83605; 83690; 83735; 84100; 85025; 87340; 90935; 96361; 96374; 96375; 99285

== ENCOUNTER 2016-11-26 11:12 | Observation (INO) | payer OTHER ==
[2016-11-26] MEDS ORDERED: SODIUM CHLORIDE 0.9% 1,000 ML IV STA (11:53)
[2016-11-26] MEDS ORDERED: HYDROmorphone 1 MG/ML 1 ML SYRINGE IVP STA ×2 (11:53→13:54)
[2016-11-26] MEDS ORDERED: ONDANSETRON 4 MG/2 ML VIAL IVP STA (11:53)
[2016-11-26] MEDS ORDERED: ENALAPRILAT 1.25 MG/ML 1 ML VIAL IVP STA (11:53)
--- NOTE | 2016-11-26 12:21 | ED ---
General Adult HPI - General Chief complaint: Abdominal Pain Stated complaint: abd pain,vomiting Time Seen by Provider: 11/26/16 11:52 Source: patient, RN notes reviewed, old records reviewed Mode of arrival: wheelchair Limitations: no limitations - History of Present Illness Initial comments: Chief complaint history of present illness 26-year-old male to complaint of nausea vomiting and epigastric pain. The patient's been vomiting since 5 AM large amounts of yellow bile. Patient was just discharged from the hospital 4 days ago. On this past on the day of discharge he had his last dialysis. - Related Data Home Medications Medication Instructions Recorded Confirmed Insulin Glargine [Lantus] 18 unit SQ HS 06/06/15 11/18/16 buPROPion SR [Wellbutrin SR] 150 mg PO BID 06/18/15 11/18/16 amLODIPine [Norvasc] 5 mg PO DAILY 05/04/16 11/18/16 INSULIN LISPRO (HumaLOG) [humaLOG] 4 units SQ AC-TID 10/16/16 11/18/16 Lisinopril [Zestril] 20 mg PO DAILY 10/16/16 11/18/16 Metoclopramide HCl [Reglan] 5 mg PO TID 10/16/16 11/18/16 Ranitidine HCl [Zantac] 150 mg PO HS 10/16/16 11/18/16 Potassium Chloride ER [K-Dur 20] 20 meq PO DAILY 10/20/16 11/18/16 Ergocalciferol (Vitamin D2) 50,000 unit PO MO 10/26/16 11/18/16 [Vitamin D2] Previous Rx's Medication Instructions Recorded Metoprolol Tartrate [Lopressor] 100 mg PO BID #60 tab 07/16/15 Ondansetron Odt [Zofran ODT] 4 mg PO Q8HR PRN #15 tab 08/03/16 HYDROcodone/APAP 7.5-325MG [[place] 1 tab PO Q4H PRN #30 tab 10/28/16 7.5-325] HYDROcodone/APAP 5-325MG [[place] 1 - 2 tab PO Q6HR PRN #14 tab 11/09/16 5-325] Calcium Acetate [PhosLo] 667 mg PO TID-W/MEALS #90 cap 11/21/16 Allergies Allergy/AdvReac Type Severity Reaction Status Date / Time No Known Allergies Allergy Verified 11/26/16 11:31 Review of Systems ROS Statement: Those systems with pertinent positive or pertinent negative responses have been documented in the HPI. Review of systems no headache no visual acuity changes no chest pain or shortness of breath. Epigastric pain with frequent vomiting large amounts of bile. No diarrhea. No rashes. No neuro deficits. All systems are reviewed. Patient's not been able to keep his medications down today. His blood pressure significantly elevated at 220/118. The patient's other medical problems include asthma, insulin-dependent diabetes mellitus, severe GERD, cyclical vomiting syndrome. Renal disease on hemodialysis. Gastroparesis secondary to his diabetes. Osteoarthritis. Surgeries gallbladder, orthopedic surgeries tonsils, he does have a PICC line in his right arm. ROS Other: All systems not noted in ROS Statement are negative. Past Medical History Past Medical History: Asthma, Diabetes Mellitus, GERD/Reflux, Hypertension, Osteoarthritis (OA), Renal Disease Additional Past Medical History / Comment(s): IDDM type I, GASTROPARESIS, gastritis, esophagitis,cyclic vomiting syndrome, DKA episodes, hiatal hernia, as child had seizure r/t high fever, pancreatits(idiopathic), chronic kidney disease stage III-hemodialysis //Saturday-last hemo done 11/14/16, L leg neuropathy, migraines. History of Any Multi-Drug Resistant Organisms: MRSA Date of last positivie culture/infection: MDRO Source:: CHIN/ Rt leg Past Surgical History: Cholecystectomy, Orthopedic Surgery, Tonsillectomy Additional Past Surgical History / Comment(s): R upper chest hemodialysis catheter, PICC line, LEFT ELBOW pinned, egd's w/ bx's last done 05-30-16. Past Anesthesia/Blood Transfusion Reactions: No Reported Reaction Past Psychological History: ADD/ADHD, Anxiety, Depression Additional Psychological History / Comment(s): Pt resides with his mother. He is independent. Smoking Status: Former smoker Past Alcohol Use History: None Reported Additional Past Alcohol Use History / Comment(s): Pt states he started smoking in 2006 and quit in 2011 Past Drug Use History: Marijuana Additional Drug Use History / Comment(s): pt states smokes marijuana a couple times per month - Past Family History Mother Family Medical History: Diabetes Mellitus Additional Family Medical History / Comment(s): heart problems-(pt not sure what they were) Father Family Medical History: Diabetes Mellitus General Exam - General Exam Comments Initial Comments: General: The patient is awake and alert, complaining of pain epigastric region with frequent vomiting since 5 AM. Unable to keep his medications down. Vital signs temp 98.7 pulse 114 respiratory rate 18 pulse ox 90% room air blood pressure 220/118. Eye: Pupils are equal, , extra-ocular movements are intact; there is normal conjunctiva bilaterally. No signs of icterus. Ears, nose, mouth and throat: There are moist mucous membranes and no oral lesions. Neck: The neck is supple, there is no tenderness . Cardiovascular: Heart heart rate, 114.. No murmur, rub or gallop is appreciated. Respiratory: Lungs are clear to auscultation, respirations are non-labored, breath sounds are equal. No wheezes, stridor, rales, or rhonchi. Gastrointestinal: Epigastric pain, frequent vomiting. No guarding. No palpable masses. Back: No complaint of back pain. Musculoskeletal: Full range of motion upper and lower extremities. Neurological: No evidence of or complaints of any neuro deficits. Skin: No rashes Limitations: no limitations Course Vital Signs 11/26/16 11/26/16 11/26/16 11:26 12:20 12:52 Temperature 98.7 F Pulse Rate 114 H 98 96 Respiratory 18 18 18 Rate Blood Pressure 220/118 215/103 193/95 O2 Sat by Pulse 98 95 95 Oximetry 11/26/16 13:22 Temperature Pulse Rate 96 Respiratory 18 Rate Blood Pressure 245/133 O2 Sat by Pulse 97 Oximetry Medical Decision Making - Medical Decision Making Medical decision making the patient's white count is 9 hemoglobin 7.6 hematocrit 24.9. Potassium 4.4 with a BUN of 45 creatinine 12 and GFR 5. The patient's amylase lipase are within normal limits, blood sugars 210, acetones negative, plasma lactic acid 1.2 which is normal. His blood pressure did initially come down with IV Vasotec Imuran back up. He is receiving hydralazine at this time. X-ray of the abdomen was done and reviewed by radiologist his impression is there is no sign of intestinal structure or pneumoperitoneum. Fecal pattern is normal. There are clips from cholecystectomy. Lung bases are clear. There is no evidence of a mass. Impression nonacute abdomen. No change. As read by Dr. Good The case discussed with Dr. France the patient be admitted to his service for further evaluation. Also with consultation from nephrology. - Lab Data Result diagrams: 11/26/16 12:07 11/26/16 12:07 Lab Results 11/26/16 11/26/16 11/26/16 Range/Units 12:07 12:07 12:07 WBC 9.2 (3.8-10.6) k/uL RBC 2.77 L (4.30-5.90) m/uL Hgb 7.6 L (13.0-17.5) gm/dL Hct 24.9 L (39.0-53.0) % MCV 89.7 (80.0-100.0) fL MCH 27.6 (25.0-35.0) pg MCHC 30.7 L (31.0-37.0) g/dL RDW 15.5 (11.5-15.5) % Plt Count 295 (150-450) k/uL Neutrophils % 79 % Lymphocytes % 13 % Monocytes % 6 % Eosinophils % 1 % Basophils % 0 % Neutrophils # 7.3 (1.3-7.7) k/uL Lymphocytes # 1.2 (1.0-4.8) k/uL Monocytes # 0.5 (0-1.0) k/uL Eosinophils # 0.1 (0-0.7) k/uL Basophils # 0.0 (0-0.2) k/uL Hypochromasia Slight Sodium 141 (137-145) mmol/L Potassium 4.4 (3.5-5.1) mmol/L Chloride 105 (98-107) mmol/L Carbon Dioxide 25 (22-30) mmol/L Anion Gap 11 mmol/L BUN 45 H (9-20) mg/dL Creatinine 12.00 H* (0.66-1.25) mg/dL Est GFR (MDRD) Af Amer 6 (>60 ml/min/1.73 sqM) Est GFR (MDRD) Non-Af 5 (>60 ml/min/1.73 sqM) Glucose 210 H (74-99) mg/dL Plasma Lactic Acid [place] 1.2 (0.7-2.0) mmol/L Calcium 8.4 (8.4-10.2) mg/dL Total Bilirubin 0.4 (0.2-1.3) mg/dL AST 25 (17-59) U/L ALT 24 (21-72) U/L Alkaline Phosphatase 108 (38-126) U/L Total Protein 6.0 L (6.3-8.2) g/dL Albumin 3.0 L (3.5-5.0) g/dL Amylase 70 (30-110) U/L Lipase 61 (23-300) U/L Acetone, Qual Negative (Negative) Disposition Clinical Impression: Gastroparesis due to DM, Cyclical vomiting with nausea, Acute renal failure on dialysis Disposition: ADMITTED IP TO THIS [facility] Condition: Poor Referrals: Myron Bailey DO [Primary Care Provider] - 1-2 days
[2016-11-26 12:36] LABS: ALT 24 U/L (21-72); AST 25 U/L (17-59); Alkaline Phosphatase 108 U/L (38-126); Amylase 70 U/L (30-110); Anion Gap 11 mmol/L; Basophils % (A) 0 %; Blood Urea Nitrogen 45 mg/dL (9-20); CH 27.8; CHCM 31.2; Calcium 8.4 mg/dL (8.4-10.2); Carbon Dioxide 25 mmol/L (22-30); Chloride 105 mmol/L (98-107); Eosinophils # (A) 0.1 k/uL (0-0.7); Eosinophils % (A) 1 %; Glucose 210 mg/dL (74-99); HCT 24.9 % (39.0-53.0); HDW 2.35; HGB 7.6 gm/dL (13.0-17.5); Hypochromasia Slight; Luc # (Auto) 0.13; Luc % (Auto) 1; Lymphocytes # (A) 1.2 k/uL (1.0-4.8); Lymphocytes % (A) 13 %; MCH 27.6 pg (25.0-35.0); MCHC 30.7 g/dL (31.0-37.0); MCV 89.7 fL (80.0-100.0); Mean Platelet Volume 6.7; Monocytes # (A) 0.5 k/uL (0-1.0); Monocytes % (A) 6 %; Neutrophils # (A) 7.3 k/uL (1.3-7.7); Neutrophils % (A) 79 %; Potassium 4.4 mmol/L (3.5-5.1); RBC 2.77 m/uL (4.30-5.90); RDW 15.5 % (11.5-15.5); Sodium 141 mmol/L (137-145); Total Bilirubin 0.4 mg/dL (0.2-1.3); WBC 9.2 k/uL (3.8-10.6); WBC (Perox) 8.59
[2016-11-26 12:49] LABS: Non-African American GFR(MDRD) 5 (>60 ml/min/1.73 sqM)
--- NOTE | 2016-11-26 12:55 | XR ---
EXAMINATION TYPE: XR abdomen 2V DATE OF EXAM: 11/26/2016 12:36 PM COMPARISON: 11/17/2016 HISTORY: Abdominal pain TECHNIQUE: 3 views FINDINGS: There is no sign of intestinal obstruction or pneumoperitoneum. Fecal pattern is normal. Th ere are clips from cholecystectomy. Lung bases are clear. There is no evidence of a mass. IMPRESSION: Nonacute abdomen. No change.
[2016-11-26] MEDS ORDERED: hydrALAZINE HCL 20 MG/ML 1 ML VIAL IVP STA (13:55)
[2016-11-26] MEDS ORDERED: NALOXONE 0.4 MG/ML 1 ML VIAL IV PRN (14:00)
[2016-11-26] MEDS ORDERED: ENALAPRILAT 1.25 MG/ML 1 ML VIAL IVP PRN (14:00)
[2016-11-26] MEDS ORDERED: HYDROmorphone 1 MG/ML 1 ML SYRINGE IV PRN (14:00)
[2016-11-26] MEDS ORDERED: PANTOPRAZOLE 40 MG/10 ML VIAL IV SCH (14:30)
[2016-11-26 14:57] VITALS: BMI 39.1
[2016-11-26] MEDS ORDERED: ERGOCALCIFEROL 50,000 UNIT CAP PO SCH (16:00)
[2016-11-26] MEDS: METOCLOPRAMIDE 5 MG TAB PO SCH ×2 (16:29→21:23)
[2016-11-26] MEDS ORDERED: TEMAZEPAM 15 MG CAP PO PRN (16:59)
[2016-11-26] MEDS ORDERED: ALPRAZolam 0.25 MG TAB PO PRN (16:59)
[2016-11-26 17:01] LABS: Glucose,Whole Blood 144 mg/dL (75-99)
[2016-11-26] MEDS: CALCIUM ACETATE 667 MG CAP PO SCH (17:21)
[2016-11-26] MEDS: INSULIN LISPRO (humaLOG) 300 UNIT/3 ML VIAL SQ SCH (17:22)
--- NOTE | 2016-11-26 17:31 | XR ---
EXAMINATION TYPE: XR chest 1V portable DATE OF EXAM: 11/26/2016 5:12 PM COMPARISON: 06/03/2016 HISTORY: Weakness TECHNIQUE: Single frontal view of the chest is obtained. FINDINGS: There is no heart failure. There is slight coarsening of interstitial markings. There are no hilar masses. There is no pleural effusion. There is dual-lumen right central venous catheter with tip in the superior vena cava. There is no pneumothorax. IMPRESSION: There is increased interstitial markings compared to last exam. No gross heart failure. Interstitial pneumonia cannot be excluded.
[2016-11-26] MEDS: HYDROmorphone 1 MG/ML 1 ML SYRINGE IV PRN ×2 (18:26→21:35)
[2016-11-26] MEDS: SODIUM CHLORIDE 0.9% 1,000 ML IV SCH (19:51)
[2016-11-26] MEDS: METOPROLOL TARTRATE 50 MG TAB PO SCH (20:16)
[2016-11-26 20:56] LABS: Glucose,Whole Blood 138 mg/dL (75-99)
[2016-11-26] MEDS ORDERED: FAMOTIDINE 20 MG TAB PO SCH (21:00)
[2016-11-26] MEDS: INSULIN GLARGINE 100 UNIT/ML 10 ML VIAL SQ SCH (21:23)
[2016-11-26] MEDS: buPROPion SR 150 MG TABLET.ER PO SCH (21:23)
[2016-11-26] MEDS: PANTOPRAZOLE 40 MG/10 ML VIAL IVP SCH (21:23)
[2016-11-26] MEDS: hydrALAZINE HCL 20 MG/ML 1 ML VIAL IVP PRN (22:16)
[2016-11-27 01:16] LABS: Appearance,Urine Clear (Clear); Bilirubin,Urine Negative (Negative); Glucose,Urine (UA) 3+ (Negative); Ketones,Urine Negative (Negative); Leukocyte Esterase,Urine Negative (Negative); Mucus,Urine Rare /hpf; Nitrite,Urine Negative (Negative); Particle Count 2891; Protein,Urine 4+ (Negative); RBC,Urine 2 /hpf (0-5); Specific Gravity,Urine 1.013 (1.001-1.035); Squamous Epithelial Cell,Urine <1 /hpf (0-4); UA Billing (MACRO vs. MICRO) MICRO; Urobilinogen,Urine <2.0 mg/dL (<2.0); WBC,Urine 26 /hpf (0-5)
[2016-11-27] MEDS: hydrALAZINE HCL 20 MG/ML 1 ML VIAL IVP PRN (01:28)
[2016-11-27] MEDS: HYDROmorphone 1 MG/ML 1 ML SYRINGE IV PRN ×7 (01:29→23:41)
[2016-11-27] MEDS: HYDROcodone/APAP 5-325MG 1 EACH TAB PO PRN ×2 (03:26→15:12)
[2016-11-27] MEDS: SODIUM CHLORIDE 0.9% 1,000 ML IV SCH (05:43)
[2016-11-27 06:53] LABS: Basophils % (A) 0 %; CH 27.6; CHCM 30.7; Eosinophils # (A) 0.2 k/uL (0-0.7); Eosinophils % (A) 2 %; HCT 25.5 % (39.0-53.0); HDW 2.31; HGB 7.9 gm/dL (13.0-17.5); Hypochromasia Slight; Luc # (Auto) 0.12; Luc % (Auto) 1; Lymphocytes # (A) 1.4 k/uL (1.0-4.8); Lymphocytes % (A) 15 %; MCH 27.9 pg (25.0-35.0); MCHC 30.9 g/dL (31.0-37.0); MCV 90.3 fL (80.0-100.0); Mean Platelet Volume 6.7; Monocytes # (A) 0.5 k/uL (0-1.0); Monocytes % (A) 5 %; Neutrophils % (A) 76 %; RBC 2.82 m/uL (4.30-5.90); RDW 15.8 % (11.5-15.5); WBC 9.2 k/uL (3.8-10.6); WBC (Perox) 9.64
[2016-11-27 07:01] LABS: Calcium 8.3 mg/dL (8.4-10.2); Potassium 4.5 mmol/L (3.5-5.1)
[2016-11-27 07:04] LABS: Glucose,Whole Blood 127 mg/dL (75-99)
[2016-11-27] MEDS: ONDANSETRON 4 MG/2 ML VIAL IVP PRN (08:46)
[2016-11-27] MEDS: PANTOPRAZOLE 40 MG/10 ML VIAL IVP SCH ×2 (08:47→21:12)
[2016-11-27] MEDS: CALCIUM ACETATE 667 MG CAP PO SCH ×3 (09:28→16:59)
[2016-11-27] MEDS: METOPROLOL TARTRATE 50 MG TAB PO SCH ×2 (09:28→21:12)
[2016-11-27] MEDS: buPROPion SR 150 MG TABLET.ER PO SCH ×2 (09:28→21:12)
[2016-11-27] MEDS: POTASSIUM CHLORIDE ER 20 MEQ TAB.ER PO SCH (09:28)
[2016-11-27] MEDS: LISINOPRIL 20 MG TAB PO SCH (09:28)
[2016-11-27] MEDS: amLODIPine 5 MG TAB PO SCH (09:28)
[2016-11-27] MEDS: METOCLOPRAMIDE 5 MG TAB PO SCH ×3 (09:28→21:12)
--- NOTE | 2016-11-27 09:37 | HP ---
DATE OF ADMISSION: The chief complaints are abdominal pain, nausea and vomiting. HISTORY OF PRESENT ILLNESS: This 26-year-old gentleman with a past medical history of multiple medical problems recently admitted with flareup of gastroparesis. The patient treated symptomatically. The patient improved significantly. Patient went home and currently patient is complaining of abdominal discomfort and nausea and vomiting and epigastric pain also. The patient vomited yellow bilious material also. There is no history of fever, rigors or chills. No history of headache, loss of consciousness or seizures. PAST MEDICAL HISTORY: History of asthma, diabetes mellitus, GERD, hypertension, DJD, history of renal disorder, history of gastroparesis, gastritis, history of cholecystectomy, history of ADD, ADHD, anxiety, depression, Medications prior to admission include home medications are: 1. Wellbutrin XR 150 mg p.o. b.i.d. 2. Norvasc 5 mg p.o. daily. 3. Zantac 150 mg q.h.s. 4. K-Dur 20 mEq daily. 5. Zofran 4 mg q.8 p.r.n. 6. Lopressor 100 mg p.o. b.i.d. 7. Reglan 5 mg p.o. t.i.d. 8. Zestril 20 mg p.o. b.i.d. 9. Lantus 18 units subcu q.h.s. 10. Humalog 4 units a.c. t.i.d. 11. [place] 7.5 q.4 p.r.n. 12. Vitamin D2, 50,000 p.o. Saturday. 13. PhosLo 667 p.o. t.i.d. with meals. ALLERGIES: None. FAMILY HISTORY: History of diabetes and heart problems. SOCIAL HISTORY: History of smoking. Previous history of THC. REVIEW OF SYSTEMS: ENT: No diminishing hearing or diminished vision. CARDIOVASCULAR: No angina or palpitations. RESPIRATORY: As mentioned earlier. GI: As mentioned earlier. : No dysuria. NERVOUS SYSTEM: No numbness or weakness. ALLERGY/IMMUNOLOGY: History asthma. MUSCULOSKELETAL: As mentioned earlier. HEMATOLOGY/ONCOLOGY: No history of anemia. ENDOCRINE: ( ). CONSTITUTIONAL: As mentioned earlier. DERMATOLOGY: Negative. RHEUMATOLOGY: Negative. PSYCHIATRY: As mentioned earlier. PHYSICAL EXAMINATION: The patient is alert and oriented x3. Pulse is 107, blood pressure 181/84, respirations 18, temperature 98 degrees, pulse ox 98% on 2 L. HEENT: Conjunctivae normal. Oral mucosa moist. NECK: No jugular venous distention. No carotid bruit. No lymph node enlargement. CARDIOVASCULAR: S1 and S2, muffled. No S3, no S4. RESPIRATORY: Breath sounds diminished at the bases. A few scattered rhonchi and crackles. ABDOMEN: Soft, mild diffuse discomfort on palpation. No guarding. No mass palpable. LEGS: No edema, no swelling. NERVOUS SYSTEM: No focal deficits. LABS: WBC 9.2, hemoglobin 7.6. Creatinine is 12. Glucose is 210. Albumin is 3. ASSESSMENT: 1. Abdominal pain, vomiting, possible acute gastroparesis, acute exacerbation. 2. Renal failure, chronic renal failure stage V. 3. Anemia, normocytic anemia of chronic disease. 4. History of asthma. 5. Diabetes mellitus type 1. 6. Gastroesophageal reflux disease. 7. Hypertension. 8. History of degenerative joint disease. 9. History of gastroparesis and gastritis and esophagitis. 10. History of cyclic vomiting syndrome. 11. History of repeated diabetic ketoacidosis . 12. Seizure as childhood. 13. Idiopathic pancreatitis history. 14. History of hemodialysis Saturday, Saturday, Saturday. 15. History of methicillin-resistant Staphylococcus aureus. 16. History of cholecystectomy. 17. History of degenerative joint disease. 18. History of attention deficit disorder, attention deficit hyperactivity disorder 19. History of anxiety, depression, not otherwise specified. 20. Remote history of nicotine dependence. 21. FULL CODE. 22. Obesity. RECOMMENDATIONS AND DISCUSSION: This 26-year-old gentleman who presented with multiple complex medical issues, will monitor the patient closely. Continue the current medications. Continue symptomatic treatment. Otherwise, we will treat the patient symptomatically. Otherwise obtain nephrology evaluation for continued hemodialysis. I also recommend gastroenterology evaluation for possible workup. Dr. Estrella has seen the patient previously. Prognosis guarded because of multiple complex medical issues. Further recommendations to follow. See orders for further details. Prognosis guarded. Medications reconciliation was done. A copy of dictation forwarded to Dr. Bailey who is the primary physician.
[2016-11-27] MEDS ORDERED: DARBEPOETIN ALFA 40 MCG/0.4 ML SYRINGE SQ SCH (10:15)
--- NOTE | 2016-11-27 11:03 | CONS ---
DATE OF CONSULTATION: 11/27/2016 REASON FOR CONSULTATION: History of diabetic gastroparesis and nausea, vomiting. HISTORY OF PRESENT ILLNESS: The patient is a 26-year-old male with history of endstage renal disease on hemodialysis was admitted to the hospital with severe abdominal pain associated with nausea, vomiting, and epigastric pain. His symptoms started at around 5 a.m. yesterday morning and since had several episodes of emesis. He was initially on a clear liquid diet. This morning he is on a soft diet. He still complains of nausea but did not have any emesis all through the night, presently on Zofran and Protonix. The patient had multiple hospitalizations over the last several years for severe diabetic gastroparesis with nausea, vomiting. The last one was only 2 weeks ago. He had an upper endoscopy sometime last year which showed gastritis and esophagitis. He complains of abdominal pain, every day, all day. No help with Hayes. Denies any significant change in his bowel habits. PAST MEDICAL HISTORY: Significant for a long-standing history of diabetes mellitus diagnosed at age 9, hypertension, hyperlipidemia, end-stage renal disease on hemodialysis, anxiety, depression, diabetic gastroparesis. MEDICATIONS AT HOME: Lantus, Wellbutrin, Norvasc, Humalog, Zestril, Reglan, Zantac, vitamin B12, K-Dur, Lopressor, Zofran, [place], PhosLo. ALLERGIES: None. PAST SURGICAL HISTORY: Cholecystectomy, tonsillectomy, hemodialysis catheter placement, elbow surgery. FAMILY HISTORY: Mom has diabetes mellitus. Father has diabetes mellitus. SOCIAL HISTORY: Chronic smoker. No alcohol use. REVIEW OF SYSTEMS: CARDIOPULMONARY: No chest pain or shortness of breath. GENITOURINARY: No dysuria or hematuria. MUSCULOSKELETAL: Unremarkable. SKIN: Unremarkable. ENDOCRINE: Unremarkable. PSYCHIATRY: Anxiety, depression. NEUROLOGY: Unremarkable. ENT/VISION: Unremarkable. CONSTITUTIONAL: No recent weight loss. No fever, chills, night sweats. On examination, appears comfortable in no apparent distress. Vital signs are stable. Blood pressure 170/110, pulse rate 93, temperature 98.1. HEENT EXAMINATION: Unremarkable. Conjunctivae pink. Sclerae anicteric. Oral cavity, no lesions. NECK: No JVD or lymph node enlargement. Chest was clear to auscultation. HEART: Regular rate and rhythm. ABDOMEN: Soft. Bowel sounds are positive. No organomegaly. EXTREMITIES: No pedal edema. SKIN: No rashes. NEURO: Alert and oriented x3. No focal deficits. LABS: WBC 9.2, hemoglobin 7.9, platelets are 289. BUN 48, creatinine 11.5. Amylase, lipase are normal. LFTs are normal. IMPRESSION: 1. This is a patient with long-standing history of diabetes mellitus with diabetic gastroparesis presents with nausea, vomiting, and abdominal pain since yesterday morning. He had multiple hospitalizations over the last several years for similar symptoms and was diagnosed with diabetic gastroparesis in the past. presently on IV Protonix 40 mg q.12 hours and Zofran as needed, doing a little bit better. 2. End-stage renal disease on hemodialysis. 3. Long-standing history of diabetes mellitus. RECOMMENDATIONS: 1. Continue with IV Protonix 40 mg q.12 hours. 2. Continue with Zofran as needed. If he still has persistent symptoms, will add Reglan to the regimen. 3. Small frequent meals. 4. No plans for any endoscopic intervention. 5. Will follow him closely during his hospital stay. Thank you for this consultation.
[2016-11-27 11:05] LABS: % Iron Saturation 25.9 % (20-50)
[2016-11-27] MEDS: INSULIN LISPRO (humaLOG) 300 UNIT/3 ML VIAL SQ SCH ×2 (11:12→18:10)
--- NOTE | 2016-11-27 11:13 | P.NPCON ---
History of Present Illness - Reason for Consult end stage renal disease - History of Present Illness Reason for consultation: End-stage renal disease History of present illness: Patient is a 26-year-old male seen in renal consultation for end-stage renal disease. He is maintained on hemodialysis on a Saturday schedule. Permacath. Patient has been very noncompliant with hemodialysis as an outpatient. Patient has had multiple hospital admissions recently for diabetic gastroparesis. He was just discharged last and had dialysis at the hospital. Due to not feeling well he did not go to dialysis Saturday or Saturday. Patient states he started developing vomiting again early Saturday morning. He also developed worsening abdominal pain which prompted him to come to the hospital. He denies chest pain. Denies any fever or chills. He did have a couple of bites of his food this morning but was not able to tolerate much. Abdominal pain is somewhat improved. Vital signs are stable. General: The patient appeared well nourished and normally developed. HEENT: Head exam is unremarkable. Neck is without jugular venous distension. LUNGS: Lungs are clear to auscultation and percussion. Breath sounds decreased. HEART: Rate and Rhythm are regular. First and second heart sounds normal. No murmurs, rubs or gallops. ABDOMEN: Abdominal exam reveals normal bowel sounds. Non-tender and non- distended. No evidence of peritonitis. EXTREMITITES: No clubbing, cyanosis, or edema. Past Medical History Past Medical History: Asthma, Diabetes Mellitus, GERD/Reflux, Hypertension, Osteoarthritis (OA), Renal Disease Additional Past Medical History / Comment(s): IDDM type I, GASTROPARESIS, gastritis, esophagitis,cyclic vomiting syndrome, DKA episodes, hiatal hernia, as child had seizure r/t high fever, pancreatits(idiopathic), chronic kidney disease stage III-hemodialysis //Saturday-last hemo done 11/22/16, L leg neuropathy, migraines. History of Any Multi-Drug Resistant Organisms: MRSA Date of last positivie culture/infection: MDRO Source:: CHIN/ Rt leg Past Surgical History: Cholecystectomy, Orthopedic Surgery, Tonsillectomy Additional Past Surgical History / Comment(s): R upper chest hemodialysis catheter, PICC line, LEFT ELBOW pinned, egd's w/ bx's last done 05-30-16. Past Anesthesia/Blood Transfusion Reactions: No Reported Reaction Past Psychological History: ADD/ADHD, Anxiety, Depression Additional Psychological History / Comment(s): Pt resides with his mother. He is independent. Smoking Status: Former smoker Past Alcohol Use History: None Reported Additional Past Alcohol Use History / Comment(s): Pt states he started smoking in 2006 and quit in 2011 Past Drug Use History: None Reported Additional Drug Use History / Comment(s): pt states smokes marijuana a couple times per month - Past Family History Mother Family Medical History: Diabetes Mellitus Additional Family Medical History / Comment(s): heart problems-(pt not sure what they were) Father Family Medical History: Diabetes Mellitus Medications and Allergies Home Medications Medication Instructions Recorded Confirmed Type Insulin Glargine [Lantus] 18 unit SQ HS 06/06/15 11/26/16 History buPROPion SR [Wellbutrin SR] 150 mg PO BID 06/18/15 11/26/16 History amLODIPine [Norvasc] 5 mg PO DAILY 05/04/16 11/26/16 History INSULIN LISPRO (HumaLOG) [humaLOG] 4 units SQ AC-TID 10/16/16 11/26/16 History Lisinopril [Zestril] 20 mg PO BID 10/16/16 11/26/16 History Metoclopramide HCl [Reglan] 5 mg PO TID 10/16/16 11/26/16 History Ranitidine HCl [Zantac] 150 mg PO HS 10/16/16 11/26/16 History Potassium Chloride ER [K-Dur 20] 20 meq PO DAILY 10/20/16 11/26/16 History Ergocalciferol (Vitamin D2) 50,000 unit PO MO 10/26/16 11/26/16 History [Vitamin D2] Allergies Allergy/AdvReac Type Severity Reaction Status Date / Time No Known Allergies Allergy Verified 11/26/16 11:31 Physical Exam Vitals: Vital Signs Temp Pulse Pulse Resp BP BP Pulse Ox 11/27/16 07:00 98.3 F 88 16 158/99 99 11/27/16 05:00 170/99 11/27/16 01:45 165/98 11/27/16 01:15 98.1 F 93 16 170/110 11/26/16 22:45 167/100 11/26/16 21:15 179/120 11/26/16 20:50 167/100 11/26/16 20:10 203/120 11/26/16 19:35 98.2 F 101 H 18 191/108 94 L 11/26/16 14:45 98.3 F 108 H 16 181/93 100 11/26/16 14:32 98.0 F 107 H 18 181/84 98 11/26/16 13:22 96 18 245/133 97 11/26/16 12:52 96 18 193/95 95 11/26/16 12:20 98 18 215/103 95 11/26/16 11:26 98.7 F 114 H 18 220/118 98 Intake and Output 11/26/16 11/27/16 11/27/16 22:59 06:59 14:59 Intake Total 175 400 Balance 175 400 Intake: Intake, IV Titration 75 Amount Sodium Chloride 0.9% 1, 75 000 ml @ 75 mls/hr IV . [id number] STA Rx#:[id number] Oral 100 400 Other: Voiding Method Toilet Toilet # Voids 2 Results - Lab Results Most recent lab results Calcium 8.3 mg/dL (8.4-10.2) L 11/27/16 06:40 11/27/16 06:40 11/27/16 06:40 Assessment and Plan Plan: Assessment: #1. End-stage renal disease maintained on hemodialysis on a Saturday schedule via permacath. #2. Nausea vomiting abdominal pain likely related to diabetic gastroparesis. #3. Insulin-dependent diabetes mellitus. #4. Hypertension with chronic kidney disease. Uncontrolled. Partially related to gastroparesis flare. #5. Chronic kidney disease mineral bone disease. #6. Anemia of chronic kidney disease. Rule out iron deficiency. Plan: Hemodialysis today and again tomorrow with goal 3-4 L ultrafiltration. Check iron studies. Start Aranesp. Check phosphorus level. Gastroenterology following. Encourage oral intake as tolerated. Expect further improvement in his blood pressure after dialysis and pain control. I strongly advised him to be compliant with his dialysis treatments as an outpatient. Thank you for the consultation. I will continue to follow the patient with you during his hospital stay.
[2016-11-27 11:55] LABS: Glucose,Whole Blood 118 mg/dL (75-99)
[2016-11-27 12:04] LABS: Glucose,Whole Blood 105 mg/dL (75-99)
[2016-11-27] MEDS ORDERED: cloNIDine HCL 0.1 MG TAB PO PRN (16:23)
[2016-11-27 16:50] LABS: Glucose,Whole Blood 118 mg/dL (75-99)
--- NOTE | 2016-11-27 20:13 | PN ---
DATE OF SERVICE: 11/27/2016 This 26-year-old gentleman who was admitted with abdominal pain, vomiting and possible acute gastroparesis also is being closely monitored. No chest pain. No palpitation. No fever. On exam, alert and oriented x3. Pulse 85, blood pressure 174/113, respiration 16, temperature 98 degrees, pulse ox 99% on room air. HEENT: Conjunctivae normal. Oral mucosa moist. NECK: No jugular venous distention. No carotid bruit. No lymph node enlargement. CARDIOVASCULAR SYSTEM: S1, S2 muffled. RESPIRATORY SYSTEM: Breath sounds diminished at the bases. A few scattered rhonchi and crackles. ABDOMEN: Soft. Minimal diffuse tenderness. No mass palpable. LEGS: No edema. No swelling. NERVOUS SYSTEM: No focal deficit. Labs at this time show WBC 9.2, hemoglobin 7.9. Creatinine is 11.5. Ferritin is 549. ASSESSMENT: 1. Abdominal pain and vomiting with possible acute gastroparesis and acute exacerbation. 2. Chronic renal failure, stage V. 3. Anemia; normocytic anemia of chronic disease. 4. History of asthma. 5. Diabetes mellitus, type 1. 6. Gastroesophageal reflux disease. 7. Hypertension. 8. History of degenerative joint disease. 9. History of gastroparesis and gastritis and esophagitis. 10. History of cyclic vomiting syndrome. 11. History of repeated diabetic ketoacidosis. 12. Seizure as a child. 13. Idiopathic pancreatitis history. 14. History of hemodialysis Saturday, Saturday, Saturday. 15. History of methicillin-resistant Staphylococcus aureus. 16. History of cholecystectomy. 17. History of degenerative joint disease. 18. History of attention deficit hyperactivity disorder, attention deficit disorder. 19. History of anxiety, depression not otherwise specified. 20. Remote history of nicotine dependence. 21. Obesity. 22. FULL CODE. RECOMMENDATIONS AND DISCUSSION: I recommend continuing current medications, continue symptomatic treatment. Dr. Estrella's input is appreciated. Nephrology is also following the patient closely. Guarded prognosis. Continue the conservative line of management. Further recommendations to follow. Repeat labs are ordered. Further recommendations to follow. P.r.n. clonidine added to better control the hypertension.
[2016-11-27 20:25] LABS: Glucose,Whole Blood 155 mg/dL (75-99)
[2016-11-27] MEDS: INSULIN GLARGINE 100 UNIT/ML 10 ML VIAL SQ SCH (21:12)
[2016-11-28] MEDS: HYDROcodone/APAP 5-325MG 1 EACH TAB PO PRN ×2 (00:34→05:38)
[2016-11-28 01:20] VITALS: RESP 16
[2016-11-28] MEDS: INSULIN LISPRO (humaLOG) 300 UNIT/3 ML VIAL SQ SCH ×4 (01:35→17:53)
[2016-11-28] MEDS: ONDANSETRON 4 MG/2 ML VIAL IVP PRN (03:24)
[2016-11-28] MEDS: HYDROmorphone 1 MG/ML 1 ML SYRINGE IV PRN ×4 (03:24→15:11)
[2016-11-28] MEDS: SODIUM CHLORIDE 0.9% 1,000 ML IV SCH ×2 (03:25→03:26)
[2016-11-28 05:43] LABS: Basophils % (A) 0 %; CH 27.6; CHCM 30.9; Eosinophils # (A) 0.2 k/uL (0-0.7); Eosinophils % (A) 4 %; HCT 26.2 % (39.0-53.0); HDW 2.36; HGB 8.2 gm/dL (13.0-17.5); Hypochromasia Slight; Luc # (Auto) 0.15; Luc % (Auto) 2; Lymphocytes # (A) 1.8 k/uL (1.0-4.8); Lymphocytes % (A) 29 %; MCHC 31.1 g/dL (31.0-37.0); MCV 89.8 fL (80.0-100.0); Mean Platelet Volume 6.4; Monocytes # (A) 0.5 k/uL (0-1.0); Monocytes % (A) 7 %; Neutrophils # (A) 3.7 k/uL (1.3-7.7); Neutrophils % (A) 58 %; RBC 2.92 m/uL (4.30-5.90); RDW 15.5 % (11.5-15.5); WBC 6.4 k/uL (3.8-10.6); WBC (Perox) 6.78
[2016-11-28 06:02] LABS: Potassium 3.9 mmol/L (3.5-5.1)
[2016-11-28 07:07] LABS: Glucose,Whole Blood 72 mg/dL (75-99)
[2016-11-28] MEDS: amLODIPine 5 MG TAB PO SCH (07:47)
[2016-11-28] MEDS: CALCIUM ACETATE 667 MG CAP PO SCH ×3 (07:47→17:53)
[2016-11-28] MEDS: buPROPion SR 150 MG TABLET.ER PO SCH (07:47)
[2016-11-28] MEDS: PANTOPRAZOLE 40 MG/10 ML VIAL IVP SCH (07:48)
[2016-11-28] MEDS: LISINOPRIL 20 MG TAB PO SCH (07:48)
[2016-11-28] MEDS: METOCLOPRAMIDE 5 MG TAB PO SCH ×2 (07:48→16:41)
[2016-11-28] MEDS: METOPROLOL TARTRATE 50 MG TAB PO SCH (07:48)
[2016-11-28] MEDS: POTASSIUM CHLORIDE ER 20 MEQ TAB.ER PO SCH (07:49)
[2016-11-28] MEDS: hydrALAZINE HCL 20 MG/ML 1 ML VIAL IVP PRN (10:29)
--- NOTE | 2016-11-28 11:07 | P.PN ---
Subjective Patient is seen in follow-up for end-stage renal disease. He is maintained on hemodialysis on a Saturday schedule. Permacath. Patient presented with nausea vomiting and abdominal pain. His symptoms are improved. He did tolerate breakfast this morning. Feels tired. Denies chest pain or shortness of breath. Vital signs are stable. General: The patient appeared well nourished and normally developed. HEENT: Head exam is unremarkable. Neck is without jugular venous distension. LUNGS: Lungs are clear to auscultation and percussion. Breath sounds decreased. HEART: Rate and Rhythm are regular. First and second heart sounds normal. No murmurs, rubs or gallops. ABDOMEN: Abdominal exam reveals normal bowel sounds. Non-tender and non- distended. No evidence of peritonitis. EXTREMITITES: No clubbing, cyanosis, or edema. Objective - Vital Signs Vital signs: Vital Signs Temp 98.2 F 11/28/16 07:00 Pulse 82 11/28/16 08:00 Resp 16 11/28/16 08:00 BP 160/105 11/28/16 09:49 Pulse Ox 96 11/28/16 07:00 Intake & Output 11/27/16 11/28/16 11/28/16 18:59 06:59 18:59 Intake Total 1140 180 Balance 1140 180 Weight 113.398 kg Intake: Intake, IV Titration 840 Amount Sodium Chloride 0.9% 1, 840 000 ml @ 80 mls/hr IV . [id number] SHERLEY Rx#:[id number] Oral 300 180 Other: Voiding Method Toilet Toilet # Voids 3 2 2 - Labs CBC & Chem 7: 11/28/16 05:35 11/28/16 05:35 Labs: Abnormal Lab Results - Last 24 Hours (Table) 11/27/16 11/27/16 11/27/16 Range/Units 06:40 11:35 11:56 RBC (4.30-5.90) m/uL Hgb (13.0-17.5) gm/dL Hct (39.0-53.0) % BUN (9-20) mg/dL Creatinine (0.66-1.25) mg/dL POC Glucose (mg/dL) 118 H 105 H (75-99) mg/dL Calcium (8.4-10.2) mg/dL Phosphorus 5.0 H (2.5-4.5) mg/dL TIBC 201 L (261-462) ug/dL Ferritin 549 H (18-464) ng/mL 11/27/16 11/27/16 11/28/16 Range/Units 16:45 20:24 05:35 RBC 2.92 L (4.30-5.90) m/uL Hgb 8.2 L (13.0-17.5) gm/dL Hct 26.2 L (39.0-53.0) % BUN (9-20) mg/dL Creatinine (0.66-1.25) mg/dL POC Glucose (mg/dL) 118 H 155 H (75-99) mg/dL Calcium (8.4-10.2) mg/dL Phosphorus (2.5-4.5) mg/dL TIBC (261-462) ug/dL Ferritin (18-464) ng/mL 11/28/16 11/28/16 Range/Units 05:35 06:50 RBC (4.30-5.90) m/uL Hgb (13.0-17.5) gm/dL Hct (39.0-53.0) % BUN 30 H (9-20) mg/dL Creatinine 8.05 H* (0.66-1.25) mg/dL POC Glucose (mg/dL) 72 L (75-99) mg/dL Calcium 8.0 L (8.4-10.2) mg/dL Phosphorus (2.5-4.5) mg/dL TIBC (261-462) ug/dL Ferritin (18-464) ng/mL Assessment and Plan Plan: Assessment: #1. End-stage renal disease maintained on hemodialysis on a Saturday schedule via permacath. #2. Nausea vomiting abdominal pain likely related to diabetic gastroparesis. #3. Insulin-dependent diabetes mellitus. #4. Hypertension with chronic kidney disease. Uncontrolled. Partially related to gastroparesis flare. #5. Chronic kidney disease mineral bone disease. #6. Anemia of chronic kidney disease. Iron replete. Plan: Hemodialysis today with goal 3-4 L ultrafiltration. Continue Aranesp. Gastroenterology following. Encourage oral intake as tolerated. Expect further improvement in his blood pressure after dialysis and pain control. Increase lisinopril to 40 mg daily. I strongly advised him to be compliant with his dialysis treatments as an outpatient.
[2016-11-28 11:50] LABS: Glucose,Whole Blood 106 mg/dL (75-99)
[2016-11-28 13:39] VITALS: BP 165/108; PULSE 86; TEMP 98.7
[2016-11-28 17:15] LABS: Glucose,Whole Blood 148 mg/dL (75-99)
[2016-11-28] MEDS ORDERED: PANTOPRAZOLE 40 MG TABLET PO SCH (17:30)
[2016-11-28] MEDS ORDERED: LISINOPRIL 20 MG TAB PO SCH (21:00)
--- NOTE | 2016-11-29 15:22 | DS ---
DATE OF ADMISSION: 11/26/2016 DATE OF DISCHARGE: 11/28/2016 FINAL DIAGNOSES: 1. Acute flare-up of gastroparesis secondary to underlying diabetes mellitus type 2. 2. Gastroesophageal reflux disease. 3. Chronic kidney disease, on hemodialysis. 4. Chronic esophagitis. 5. Essential hypertension, controlled. 6. Autonomic dysfunction, with underlying diabetes. 7. Obesity; body mass index of 39. 8. Depression, not otherwise specified. 9. Anemia, normocytic anemia of chronic disease. CONSULTATION: 1. Dr. Martins of Nephrology for hemodialysis. 2. Dr. Estrella from GI. HOSPITAL COURSE: This is a patient who presented with an acute exacerbation of gastroparesis secondary to his diabetes. Patient was admitted to the hospital, provided IV fluids, IV pain medications provided as well. Symptoms improved, diet advanced with no further nausea. Patient does complain of mild pain that is persistent. Hypertension managed with hemodialysis and antihypertensives. Beta ingris, calcium channel ingris and Arbs. Today the patient is lying in bed, looks comfortable. No acute distress noted. Awaiting his next dialysis treatment. Patient would like to go home. States he feels better, still has some mild pain, but much improved from day of admission. Patient instructed on proper foods to eat, and to take it easy. Patient verbalized understanding. PHYSICAL EXAMINATION: ABDOMEN: Soft, nontender to palpation, positive bowel sounds in all 4 quadrants. CARDIOVASCULAR: First and second sounds noted. No edema. DISCHARGE MEDICATIONS: 1. Lantus 18 units subQ at bedtime. 2. ( ) SR 150 mg p.o. b.i.d. 3. Lopressor 100 mg p.o. b.i.d. 4. Amlodipine 5 mg p.o. daily. 5. Zofran 4 mg p.o. q.8 hours p.r.n. 6. Humalog insulin 4 units subQ before meals 3 times a day. 7. Lisinopril 20 mg p.o. b.i.d. 8. Reglan 5 mg p.o. t.i.d. 9. Zantac 150 mg p.o. at bedtime. 10. Potassium chloride ER 20 mEq p.o. daily. 11. Vitamin D2 fifty thousand units p.o. on Mondays. 12. Elizabeth 7.5/325 one tab p.o. q.4h. 13. PhosLo 667 mg p.o. t.i.d. with meals. 14. Aranesp 40 mcg subQ every 7 days. 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 Martins in 2 days for his usual dialysis treatment. Patient should also follow up with Dr. Myron Bailey in 1 to 2 days who is his primary provider. DISPOSITION: Patient is being sent home to be with family. Patient was seen and examined by nurse practitioner, Kristen Martínez and all elements of the case were discussed with Dr. Clancy, attending.
--- NOTE | 2016-11-30 09:06 | DS ---
DATE OF ADMISSION: 11/26/2016 DATE OF DISCHARGE: 11/28/2016 FINAL DIAGNOSES: 1. Acute flareup of gastroparesis secondary to underlying diabetes mellitus type 2. 2. Gastroesophageal reflux disease. 3. End-stage kidney disease on hemodialysis. 4. Chronic esophagitis. 5. Essential hypertension with urgency. 6. Autonomic dysfunction from underlying diabetes. 7. Obesity; body mass index 39. 8. Depression, not otherwise specified. HOSPITAL COURSE: This patient presented with his usual symptoms of asking for pain medications, nausea, vomiting, abdominal pain. Blood pressure was better controlled by the time of discharge. Patient was seen by Dr. Олег Estrella from GI and Dr. Ho from nephrology. Was tolerating a diet comfortable at the time of discharge. DISCHARGE MEDICATIONS: 1. Lantus 18 units subcu q.h.s. 2. Wellbutrin SR 150 mg p.o. b.i.d. 3. Lopressor 100 mg p.o. b.i.d. 4. Norvasc 5 mg p.o. daily. 5. Zofran 4 mg q.8 p.r.n. 6. Humalog 4 units a.c. t.i.d. 7. Zestril 20 mg b.i.d. 8. Reglan 5 mg p.o. t.i.d. 9. Zantac 150 mg p.o. q.h.s. 10. Potassium 20 mEq p.o. daily. 11. Vitamin D2, 50,000 units p.o. Saturday. 12. [place] 7.5 one tablet q.4 p.r.n. 13. PhosLo 667 mg p.o. t.i.d. with meals. Follow up with Dr. Martins. Follow up with Dr. Bailey in 2 days. Continue with hemodialysis schedule.
== END 2016-11-28 18:14 | disposition home or self-care (01) ==
LOC: EC 11:12 → 3SUR 14:00 → INTOOBSV 14:00
PROVIDERS: ADMIT Hospitalist; ATTEND Hospitalist
DX: E10.43 Type 1 diabetes mellitus with diabetic autonomic (poly)neuropathy (principal); K31.84 Gastroparesis; G43.A0 Cyclical vomiting, in migraine, not intractable; N18.6 End stage renal disease; I12.0 Hypertensive chronic kidney disease with stage 5 chronic kidney disease or end stage renal disease; E10.22 Type 1 diabetes mellitus with diabetic chronic kidney disease; E66.9 Obesity, unspecified; E10.40 Type 1 diabetes mellitus with diabetic neuropathy, unspecified; I16.0 Hypertensive urgency; K21.0 Gastro-esophageal reflux disease with esophagitis; D63.1 Anemia in chronic kidney disease; K29.70 Gastritis, unspecified, without bleeding; K44.9 Diaphragmatic hernia without obstruction or gangrene; J45.909 Unspecified asthma, uncomplicated; F90.9 Attention-deficit hyperactivity disorder, unspecified type; F12.90 Cannabis use, unspecified, uncomplicated; F41.9 Anxiety disorder, unspecified; E78.5 Hyperlipidemia, unspecified; F32.9 Major depressive disorder, single episode, unspecified; M19.90 Unspecified osteoarthritis, unspecified site; Z82.49 Family history of ischemic heart disease and other diseases of the circulatory system; Z86.19 Personal history of other infectious and parasitic diseases; Z87.891 Personal history of nicotine dependence; Z86.69 Personal history of other diseases of the nervous system and sense organs; Z99.2 Dependence on renal dialysis; Z68.39 Body mass index [BMI] 39.0-39.9, adult; Z79.4 Long term (current) use of insulin; Z79.899 Other long term (current) drug therapy; Z86.14 Personal history of Methicillin resistant Staphylococcus aureus infection; Z90.49 Acquired absence of other specified parts of digestive tract; Z83.3 Family history of diabetes mellitus; Z87.19 Personal history of other diseases of the digestive system; Z71.3 Dietary counseling and surveillance; Z91.15 Patient's noncompliance with renal dialysis
CPT/HCPCS: 96361 ×3; 96365; 96366; 96372; 96376; 96374; 96375; 99285; 36415; 80053; 80048 ×2; 82728; 82150; 83540; 83550; 82009; 83605; 83690; 84100; 85025 ×3; 81001; 71010; 74020; G0378 ×3; J0360 ×3; S0106 ×3; J2405 ×3; J0696 ×2; J1170 ×3; C9113 ×3; J0881; 90935

== ENCOUNTER 2016-11-29 02:26 | Observation (INO) | payer OTHER ==
[2016-11-29] MEDS ORDERED: HYDROmorphone 2 MG/ML 1 ML SYRINGE IVP STA (03:07)
[2016-11-29] MEDS ORDERED: diphenhydrAMINE 50 MG/ML 1 ML VIAL IVP STA (03:07)
[2016-11-29] MEDS ORDERED: LORazepam 2 MG/ML SYRINGE IV STA (03:07)
[2016-11-29] MEDS ORDERED: METOCLOPRAMIDE 5 MG/ML 2 ML VIAL IVP STA (03:07)
[2016-11-29] MEDS ORDERED: SODIUM CHLORIDE 0.9% 1,000 ML IV STA ×2 (03:13)
[2016-11-29] MEDS ORDERED: SODIUM CHLORIDE 0.9% 500 ML IV STA (03:13)
--- NOTE | 2016-11-29 03:17 | ED ---
General Adult HPI - General Chief complaint: Abdominal Pain Stated complaint: abd pain, vomiting Time Seen by Provider: 11/29/16 02:49 Source: patient, RN notes reviewed, old records reviewed Mode of arrival: wheelchair Limitations: no limitations - History of Present Illness Initial comments: This is a 26-year-old male here for evaluation. Patient presents evaluation for nausea vomiting. Patient remained pain, severe pain, generalized body pain and aches and pains. Patient unable to keep medications down at home, patient is in no lengthy medical history to this facility. Patient was just discharged from the hospital the last 24 hours. - Related Data Home Medications Medication Instructions Recorded Confirmed Insulin Glargine [Lantus] 18 unit SQ HS 06/06/15 11/29/16 buPROPion SR [Wellbutrin SR] 150 mg PO BID 06/18/15 11/29/16 amLODIPine [Norvasc] 5 mg PO DAILY 05/04/16 11/29/16 INSULIN LISPRO (HumaLOG) [humaLOG] 4 units SQ AC-TID 10/16/16 11/29/16 Lisinopril [Zestril] 20 mg PO BID 10/16/16 11/29/16 Metoclopramide HCl [Reglan] 5 mg PO TID 10/16/16 11/29/16 Ranitidine HCl [Zantac] 150 mg PO HS 10/16/16 11/29/16 Potassium Chloride ER [K-Dur 20] 20 meq PO DAILY 10/20/16 11/29/16 Ergocalciferol (Vitamin D2) 50,000 unit PO MO 10/26/16 11/29/16 [Vitamin D2] Previous Rx's Medication Instructions Recorded Metoprolol Tartrate [Lopressor] 100 mg PO BID #60 tab 07/16/15 Ondansetron Odt [Zofran ODT] 4 mg PO Q8HR PRN #15 tab 08/03/16 HYDROcodone/APAP 7.5-325MG [[place] 1 tab PO Q4H PRN #30 tab 10/28/16 7.5-325] Calcium Acetate [PhosLo] 667 mg PO TID-W/MEALS #90 cap 11/21/16 Allergies Allergy/AdvReac Type Severity Reaction Status Date / Time No Known Allergies Allergy Verified 11/26/16 11:31 Review of Systems ROS Statement: Those systems with pertinent positive or pertinent negative responses have been documented in the HPI. ROS Other: All systems not noted in ROS Statement are negative. Past Medical History Past Medical History: Asthma, Diabetes Mellitus, GERD/Reflux, Hypertension, Osteoarthritis (OA), Renal Disease Additional Past Medical History / Comment(s): IDDM type I, GASTROPARESIS, gastritis, esophagitis,cyclic vomiting syndrome, DKA episodes, hiatal hernia, as child had seizure r/t high fever, pancreatits(idiopathic), chronic kidney disease stage III-hemodialysis //Saturday-last hemo done 11/22/16, L leg neuropathy, migraines. History of Any Multi-Drug Resistant Organisms: MRSA Date of last positivie culture/infection: MDRO Source:: CHIN/ Rt leg Past Surgical History: Cholecystectomy, Orthopedic Surgery, Tonsillectomy Additional Past Surgical History / Comment(s): R upper chest hemodialysis catheter, PICC line, LEFT ELBOW pinned, egd's w/ bx's last done 05-30-16. Past Anesthesia/Blood Transfusion Reactions: No Reported Reaction Past Psychological History: ADD/ADHD, Anxiety, Depression Additional Psychological History / Comment(s): Pt resides with his mother. He is independent. Smoking Status: Former smoker Past Alcohol Use History: None Reported Additional Past Alcohol Use History / Comment(s): Pt states he started smoking in 2006 and quit in 2011 Past Drug Use History: None Reported Additional Drug Use History / Comment(s): pt states smokes marijuana a couple times per month - Past Family History Mother Family Medical History: Diabetes Mellitus Additional Family Medical History / Comment(s): heart problems-(pt not sure what they were) Father Family Medical History: Diabetes Mellitus General Exam Limitations: no limitations General appearance: alert, in no apparent distress, anxious Head exam: Present: atraumatic, normocephalic, normal inspection Eye exam: Present: normal appearance, PERRL, EOMI. Absent: scleral icterus, conjunctival injection, periorbital swelling ENT exam: Present: normal exam, mucous membranes moist Neck exam: Present: normal inspection. Absent: tenderness, meningismus, lymphadenopathy Respiratory exam: Present: normal lung sounds bilaterally. Absent: respiratory distress, wheezes, rales, rhonchi, stridor Cardiovascular Exam: Present: normal rhythm, tachycardia, normal heart sounds. Absent: systolic murmur, diastolic murmur, rubs, gallop, clicks GI/Abdominal exam: Present: soft, normal bowel sounds. Absent: distended, tenderness, guarding, rebound, rigid Extremities exam: Present: normal inspection, full ROM, normal capillary refill. Absent: tenderness, pedal edema, joint swelling, calf tenderness Back exam: Present: normal inspection Neurological exam: Present: alert, oriented X3, CN II-XII intact Psychiatric exam: Present: normal affect, normal mood Skin exam: Present: warm, dry, intact, normal color. Absent: rash Course Vital Signs 11/29/16 11/29/16 11/29/16 02:32 03:33 04:00 Temperature 97.3 F L Pulse Rate 114 H 103 H 104 H Respiratory 20 18 20 Rate Blood Pressure 172/104 166/88 182/95 O2 Sat by Pulse 96 100 95 Oximetry - Reevaluation(s) Reevaluation #1: 11/29/16 06:06 Patient still actively vomiting in emergency room EKG Findings - EKG Comments: EKG Findings:: EKG shows sinus tachycardia rate 106, WI 50, QRS 96, QTC 518 Medical Decision Making - Medical Decision Making 26 male the ER for intractable nausea vomiting abdominal pain, recently recent hospital yesterday coming in the area today for evaluation of severe pain symptoms. Patient has no worsening improvement of symptoms, no help with outpatient management, patient will be admitted for symptom therapy and further evaluation - Lab Data Result diagrams: 11/29/16 03:30 11/29/16 03:30 Lab Results 11/29/16 11/29/16 Range/Units 03:30 03:30 WBC 6.7 (3.8-10.6) k/uL RBC 2.85 L (4.30-5.90) m/uL Hgb 8.2 L (13.0-17.5) gm/dL Hct 25.3 L (39.0-53.0) % MCV 88.8 (80.0-100.0) fL MCH 28.8 (25.0-35.0) pg MCHC 32.5 (31.0-37.0) g/dL RDW 15.5 (11.5-15.5) % Plt Count 268 (150-450) k/uL Neutrophils % 69 % Lymphocytes % 19 % Monocytes % 9 % Eosinophils % 1 % Basophils % 0 % Neutrophils # 4.6 (1.3-7.7) k/uL Lymphocytes # 1.3 (1.0-4.8) k/uL Monocytes # 0.6 (0-1.0) k/uL Eosinophils # 0.1 (0-0.7) k/uL Basophils # 0.0 (0-0.2) k/uL Sodium 140 (137-145) mmol/L Potassium 4.1 (3.5-5.1) mmol/L Chloride 101 (98-107) mmol/L Carbon Dioxide 31 H (22-30) mmol/L Anion Gap 8 mmol/L BUN 24 H (9-20) mg/dL Creatinine 6.70 H* (0.66-1.25) mg/dL Est GFR (MDRD) Af Amer 12 (>60 ml/min/1.73 sqM) Est GFR (MDRD) Non-Af 10 (>60 ml/min/1.73 sqM) Glucose 162 H (74-99) mg/dL Calcium 7.9 L (8.4-10.2) mg/dL Phosphorus 3.8 (2.5-4.5) mg/dL Magnesium 2.0 (1.6-2.3) mg/dL Total Bilirubin 0.3 (0.2-1.3) mg/dL AST 16 L (17-59) U/L ALT 23 (21-72) U/L Alkaline Phosphatase 102 (38-126) U/L Total Protein 5.6 L (6.3-8.2) g/dL Albumin 2.7 L (3.5-5.0) g/dL Acetone, Qual Positive (Negative) Disposition Clinical Impression: Gastroparesis due to DM, Intractable abdominal pain, Nausea and vomiting in adult, Gastroparesis, Nausea and vomiting, Renal insufficiency syndrome, Acute on chronic renal failure, Cyclical vomiting syndrome Disposition: ADMITTED IP TO THIS [facility] Condition: Fair Instructions: Abdominal Pain (ED) Referrals: Myron Bailey DO [Primary Care Provider] - 1-2 days
[2016-11-29 03:58] LABS: Basophils % (A) 0 %; CH 27.8; CHCM 31.5; Eosinophils # (A) 0.1 k/uL (0-0.7); Eosinophils % (A) 1 %; HCT 25.3 % (39.0-53.0); HDW 2.39; HGB 8.2 gm/dL (13.0-17.5); Luc # (Auto) 0.12; Luc % (Auto) 2; Lymphocytes # (A) 1.3 k/uL (1.0-4.8); Lymphocytes % (A) 19 %; MCH 28.8 pg (25.0-35.0); MCHC 32.5 g/dL (31.0-37.0); MCV 88.8 fL (80.0-100.0); Mean Platelet Volume 6.7; Monocytes # (A) 0.6 k/uL (0-1.0); Monocytes % (A) 9 %; Neutrophils # (A) 4.6 k/uL (1.3-7.7); Neutrophils % (A) 69 %; RBC 2.85 m/uL (4.30-5.90); RDW 15.5 % (11.5-15.5); WBC 6.7 k/uL (3.8-10.6); WBC (Perox) 7.06
[2016-11-29 04:38] LABS: ALT 23 U/L (21-72); AST 16 U/L (17-59); Alkaline Phosphatase 102 U/L (38-126); Anion Gap 8 mmol/L; Blood Urea Nitrogen 24 mg/dL (9-20); Calcium 7.9 mg/dL (8.4-10.2); Carbon Dioxide 31 mmol/L (22-30); Chloride 101 mmol/L (98-107); Glucose 162 mg/dL (74-99); Phosphorous 3.8 mg/dL (2.5-4.5); Potassium 4.1 mmol/L (3.5-5.1); Sodium 140 mmol/L (137-145); Total Bilirubin 0.3 mg/dL (0.2-1.3); Total Protein 5.6 g/dL (6.3-8.2)
[2016-11-29 05:01] LABS: Non-African American GFR(MDRD) 10 (>60 ml/min/1.73 sqM)
[2016-11-29 07:26] LABS: Glucose,Whole Blood 147 mg/dL (75-99)
[2016-11-29] MEDS ORDERED: ONDANSETRON 4 MG/2 ML VIAL IVP PRN (07:51)
[2016-11-29 08:06] VITALS: BMI 39.1
[2016-11-29] MEDS: amLODIPine 5 MG TAB PO SCH (09:00)
[2016-11-29] MEDS ORDERED: ENOXAPARIN 40 MG/0.4 ML SYRINGE SQ SCH (09:00)
[2016-11-29] MEDS: buPROPion SR 150 MG TABLET.ER PO SCH ×2 (09:01→20:48)
[2016-11-29] MEDS: LISINOPRIL 20 MG TAB PO SCH ×2 (09:01→20:48)
[2016-11-29] MEDS: METOCLOPRAMIDE 5 MG TAB PO SCH ×3 (09:02→20:48)
[2016-11-29] MEDS: POTASSIUM CHLORIDE ER 20 MEQ TAB.ER PO SCH (09:02)
[2016-11-29] MEDS: HYDROcodone/APAP 7.5-325MG 1 EACH TAB PO PRN ×3 (09:03→20:48)
[2016-11-29] MEDS: METOPROLOL TARTRATE 50 MG TAB PO SCH ×2 (09:03→20:48)
[2016-11-29 11:51] LABS: Glucose,Whole Blood 112 mg/dL (75-99)
[2016-11-29] MEDS ORDERED: HYDROmorphone 1 MG/ML 1 ML SYRINGE IVP PRN (11:55)
--- NOTE | 2016-11-29 11:55 | P.CON ---
Consult Note - . Consult date: 11/29/16 Assessment/Plan:: Patient seen and examined, past medical/surgical/social/family history reviewed , along with allergies and recent admission history. Mr. Black is a 26-year-old male with history of multiple admissions to [facility] for chronic renal failure and gastritis/ gastroparesis that causes him persistent nausea and vomiting. Patient was recently discharged from this hospital but returned with uncontrolled nausea/ vomiting and abdominal pain. The patient was seen and evaluated by my colleague Dr. Guerin on November 05, and he recommended acute treatment with IV Dilaudid 1 mg q3 hours as needed, but not for the patient to go home on chronic narcotics given his young age, history of repeated admissions, and previous history of drug use. I agree with this recommendation to treat the patient's pain acutely during the determination of the cause and subsequent treatment of his underlying pain, but not to give him chronic opioids for home use. Please call back with any further questions. I spent 40 minutes total in the care of this patient.
[2016-11-29] MEDS: INSULIN LISPRO (humaLOG) 300 UNIT/3 ML VIAL SQ SCH ×2 (13:01→18:02)
[2016-11-29] MEDS: CALCIUM ACETATE 667 MG CAP PO SCH ×2 (13:03→17:23)
[2016-11-29] MEDS ORDERED: ONDANSETRON ODT 4 MG TAB PO PRN (14:59)
[2016-11-29 17:12] LABS: Glucose,Whole Blood 92 mg/dL (75-99)
--- NOTE | 2016-11-29 17:56 | CONS ---
DATE OF CONSULTATION: 11/29/16 REASON FOR CONSULTATION: End-stage renal disease. HISTORY OF PRESENT ILLNESS: Patient is a 26-year-old male with end-stage renal disease, on hemodialysis on a Saturday, Saturday, Saturday schedule with a strong history of noncompliance as outpatient. Patient has been in and out with complaints of abdominal pain. He does follow up for treatment for chronic pain syndrome. There has been a tendency towards drug-seeking behavior. As outpatient, I was informed by the nursing staff that his mother had mentioned to the nursing staff at the dialysis unit that they were terminating all care and he was not going to continue dialysis any further and they were considering hospice. However, when I asked the patient today, he states he does want to continue with renal replacement therapy. He states that he has also been more compliant with his treatments as outpatient. No fever, chills. No chest pains. No significant shortness of breath. PAST MEDICAL HISTORY: 1. End-stage renal disease. 2. Type 1 diabetes. 3. Asthma. 4. Gastroesophageal reflux disease. 5. Hypertension. 6. Osteoarthritis. 7. Gastroparesis. 8. Neuropathy. 9. Migraines. 10. History of pancreatitis. 11. History of MRSA infection from a wound in the leg. 12. Anxiety. 13. Depression. 14. ADD. PAST SURGICAL HISTORY: 1. Cholecystectomy. 2. Tonsillectomy. 3. Perm-A-Cath placement. 4. Orthopedic surgery. SOCIAL HISTORY: Positive for patient being an ex-smoker. He does use marijuana. Medications at home prior to admission included: 1. Insulin. 2. Norvasc. 3. Zestril. 4. Reglan. 5. Zantac. 6. Potassium. 7. Vitamin D. 8. Lopressor. 9. PhosLo. ALLERGIES: NONE. REVIEW OF SYSTEMS: As per HPI. Other systems negative. On examination, patient is currently comfortable, awake. He is not in any acute distress. Blood pressure is 176/99, heart rate 104 per minute. He is afebrile. EXAMINATION OF THE HEART: S1 and S2. EXAMINATION OF THE LUNGS: Bilateral breath sounds are heard. ABDOMEN: Soft, nontender. Examination of lower extremities shows no significant edema. BROOM MAKER exam is grossly intact. Labs show sodium of 140, potassium 4.1. Hemoglobin 8.2. Serum creatinine 6.7. Albumin 2.7. Blood sugar was 162. ASSESSMENT: 1. End-stage renal disease, on hemodialysis on a Saturday, Saturday, Saturday schedule, currently dialyzing via right IJ Perm-A-Cath. Patient will be scheduled for hemodialysis tomorrow. 2. Uncontrolled hypertension, most likely secondary to noncompliance with medications. Continue current meds, which include Norvasc, lisinopril, metoprolol. We can increase the Norvasc if the pressure remains uncontrolled. 3. Chronic kidney disease bone mineral disorder, maintained on PhosLo. 4. Type 1 diabetes, currently on insulin. 5. History of drug-seeking behavior, being managed by Pain Medicine. PLAN: Hemodialysis in a.m. Increase Norvasc to 10 if blood pressure remains uncontrolled. MTDD
[2016-11-29] MEDS: INSULIN GLARGINE 100 UNIT/ML 10 ML VIAL SQ SCH (20:44)
[2016-11-29] MEDS ORDERED: NON-FORMULARY DRUG (Metoprolol Tartrate [Lopressor] 100 MG) PO SCH (21:00)
[2016-11-29 21:01] LABS: Glucose,Whole Blood 83 mg/dL (75-99)
--- NOTE | 2016-11-29 22:55 | HP ---
DATE OF ADMISSION: 11/29/2016 PRESENTING COMPLAINT: Nausea, vomiting, abdominal pain. HISTORY OF PRESENTING COMPLAINT: This is a 26-year-old patient with numerous admissions to the hospital. Patient's chronic stable medical conditions include esophagitis, gastroparesis, chronic kidney disease on hemodialysis. Patient was discharged yesterday, presented again with some nausea, abdominal pain. The patient has been seen by Dr. Guerin in the past from pain management on a recent trip to the hospital. He did clearly state that patient did not require any IV Dilaudid. Also, GI team has said the patient does not require IV Dilaudid medication. Patient comes in, denies the same. The patient therefore was re-admitted. I also spoke to Dr. Martins today. Patient has not been going for his hemodialysis, not been compliant, and she also stated that the patient's mother had actually talked about him going to hospice because it was not a good quality of life. REVIEW OF SYSTEMS: CONSTITUTIONAL: Tired. HEENT: None. RESPIRATORY: None. CARDIOVASCULAR: None. GASTROINTESTINAL: As above. CONSTITUTIONAL: Tired. HEENT: None. RESPIRATORY: None. CARDIOVASCULAR: None. GASTROINTESTINAL: As above. GENITOURINARY: None. MUSCULOSKELETAL: Occasional low back pain. DERMATOLOGICAL: None. HEMATOLOGICAL: None. LYMPHATIC: None. PSYCHIATRY: Some anxiety. NEUROLOGICAL: None. PAST MEDICAL HISTORY: Diabetes type 2, GERD, hypertension, gastroparesis, esophagitis, chronic kidney disease on hemodialysis, chronic abdominal pain. PAST SURGICAL HISTORY: Tonsillectomy, cholecystectomy, right upper chest hemodialysis catheter, left elbow pinning. SOCIAL HISTORY: Lives with his mother, has been noncompliant with dialysis per Dr. Martins. The patient smoked from 2006 to 2011. Patient does medical marijuana occasionally. HOME MEDICATIONS: 1. Wellbutrin SR 150 mg p.o. b.i.d. 2. Norvasc 5 mg p.o. daily. 3. Zantac 150 mg p.o. q.h.s. 4. Potassium 20 mEq p.o. daily. 5. Zofran 4 mg p.o. q.8 p.r.n. 6. Lopressor 100 mg p.o. b.i.d. 7. Reglan 5 mg p.o. t.i.d. 8. Zestril 20 mg p.o. b.i.d. 9. Lantus 18 units subcu q.h.s. 10. Humalog 4 units a.c. t.i.d. 11. [place] 7.5, 1 tablet q.4 p.r.n. 12. Vitamin D2, 50,000 units p.o. Saturday. 13. PhosLo 1 tablet p.o. t.i.d. with meals. ALLERGIES: None. On examination, temperature 97.3, pulse 114, respirations 20, blood pressure 172/104, pulse ox 96% on room air. GENERAL APPEARANCE: Lying in bed, awake, not in distress. EYES: Pupils equal. Conjunctivae normal. NECK: JVD not raised. Mass not palpable. HEENT: External appearance of nose and ears normal. Oral cavity normal. RESPIRATORY: Effort normal. Lungs are clear. CARDIOVASCULAR: First and second sounds normal. No edema. ABDOMEN: Soft. Liver and spleen not palpable. No guarding or rigidity. LYMPHATIC: No lymph node palpable in neck or axillae. PSYCHIATRY: Alert and oriented x3. Mood and affect slightly low. NEUROLOGICAL: Pupils equal. Cranial nerves grossly intact. Power and sensation grossly intact. INVESTIGATIONS: White count 6.7, hemoglobin 8.2. Potassium 4.1, BUN 24, creatinine 6.7. Accu-Cheks are noted. ASSESSMENT: 1. Questionable flare-up of gastroparesis secondary to underlying diabetes mellitus type 2. 2. Gastroesophageal reflux disease. 3. Chronic esophagitis. 4. End-stage kidney disease on hemodialysis. 5. Essential hypertension, uncontrolled. 6. Autonomic dysfunction with underlying diabetes. 7. Obesity; body mass index 39. 8. Depression, not otherwise specified. 9. Chronic abdominal pain, previously as discussed with Dr. Guerin from pain management on the previous ( ), there is no indication for IV Dilaudid. Patient should be managed on [place]. PLAN: At this point, pain management team is consulted and GI is consulted. I also am going to have the mother come in for a family meeting. Family ( ) patient is having numerous multiple admissions and he keeps coming back without being compliant, going to his dialysis. used car make ready worker is already involved in the same and go from there.
[2016-11-30 02:23] LABS: Glucose,Whole Blood 77 mg/dL (75-99)
[2016-11-30] MEDS: HYDROcodone/APAP 7.5-325MG 1 EACH TAB PO PRN ×3 (05:30→20:37)
[2016-11-30 07:20] LABS: Glucose,Whole Blood 100 mg/dL (75-99)
[2016-11-30 07:24] VITALS: RESP 16
[2016-11-30] MEDS: amLODIPine 5 MG TAB PO SCH (08:16)
[2016-11-30] MEDS: CALCIUM ACETATE 667 MG CAP PO SCH ×3 (08:16→18:16)
[2016-11-30] MEDS: METOCLOPRAMIDE 5 MG TAB PO SCH ×3 (08:17→21:12)
[2016-11-30] MEDS: LISINOPRIL 20 MG TAB PO SCH ×2 (08:17→20:30)
[2016-11-30] MEDS: buPROPion SR 150 MG TABLET.ER PO SCH ×2 (08:17→20:30)
[2016-11-30] MEDS: ENOXAPARIN 30 MG/0.3 ML SYRINGE SQ SCH (08:17)
[2016-11-30] MEDS: METOPROLOL TARTRATE 50 MG TAB PO SCH ×2 (08:18→20:30)
[2016-11-30] MEDS: POTASSIUM CHLORIDE ER 20 MEQ TAB.ER PO SCH (08:18)
[2016-11-30] MEDS: INSULIN LISPRO (humaLOG) 300 UNIT/3 ML VIAL SQ SCH ×3 (08:55→18:19)
[2016-11-30 09:42] LABS: CH 27.5; CHCM 30.2; HCT 26.1 % (39.0-53.0); HGB 8.2 gm/dL (13.0-17.5); Hypochromasia Moderate; MCH 28.9 pg (25.0-35.0); MCHC 31.6 g/dL (31.0-37.0); MCV 91.6 fL (80.0-100.0); Mean Platelet Volume 7.1; RBC 2.85 m/uL (4.30-5.90); RDW 15.3 % (11.5-15.5)
[2016-11-30] MEDS: PANTOPRAZOLE 40 MG/10 ML VIAL IVP SCH (10:03)
--- NOTE | 2016-11-30 10:05 | P.CONS ---
History of Present Illness - Reason for Consult Consult date: 11/30/16 Nausea vomiting Requesting physician: Kyle Clancy - History of Present Illness 26-year-old -[place] male well-known to the GI service history of long- standing diabetes mellitus poorly controlled, end-stage renal disease hemodialysis, medical noncompliance, gastroparesis, chronic abdominal pain, anxiety, depression, hyperlipidemia, and hypertension. Multiple hospitalizations for nausea vomiting abdominal pain. Patient was seen in consultation 11/27/2016 for nausea vomiting which resolved and discharged 2 days later and returned yesterday same complaints including uncontrolled hypertension. Consultation requested for nausea vomiting. Hemodialysis scheduled today the patient is currently declining. White count 6.7. Hemoccult 8.2. Serum acetone positive. Creatinine 6.7. BUN 24. Glucose 162. LFTs within normal limits. Afebrile. Denies hematemesis medication melena. Evaluated by pain management service. Review of Systems Constitutional: Denies fever, chills, sweats, weight gain, or loss. HEENT: Negative for migraines, blurred vision or loss, earaches, drainage, tinnitus, oral mucosal lesions, dysphagia, or odynophagia. Cardiac: Hypertension. Hyperlipidemia. Negative for chest pain, arrhythmias, or palpitation. Respiratory: Negative for shortness of breath, hemoptysis, cough, or sputum production. Gastrointestinal: See HPI for pertinent findings. Genitourinary: Negative for hematuria, urgency, frequency, polyuria, dysuria, or penile discharge. Musculoskeletal: Negative for muscle aches, swelling, arthritis, and arthralgias. Neurologic: Negative for stroke or TIA. Endocrine: Long-standing poorly controlled diabetes mellitus. Negative for thyroid problems. Nephrology: End-stage renal disease hemodialysis. Skin: Negative for rash or itching. Psychiatric: History of depression and anxiety. History of medical noncompliance. All systems: negative (See HPI) Past Medical History Past Medical History: Asthma, Diabetes Mellitus, GERD/Reflux, Hypertension, Osteoarthritis (OA), Renal Disease Additional Past Medical History / Comment(s): IDDM type I, GASTROPARESIS, gastritis, esophagitis,cyclic vomiting syndrome, DKA episodes, hiatal hernia, as child had seizure r/t high fever, pancreatits(idiopathic), chronic kidney disease stage III-hemodialysis //Saturday-last hemo done 11/22/16, L leg neuropathy, migraines. History of Any Multi-Drug Resistant Organisms: MRSA Year Discovered:: MDRO Source:: CHIN/ Rt leg Past Surgical History: Cholecystectomy, Orthopedic Surgery, Tonsillectomy Additional Past Surgical History / Comment(s): R upper chest hemodialysis catheter, PICC line, LEFT ELBOW pinned, egd's w/ bx's last done 05-30-16. Past Anesthesia/Blood Transfusion Reactions: No Reported Reaction Past Psychological History: ADD/ADHD, Anxiety, Depression Additional Psychological History / Comment(s): Pt resides with his mother. He is independent. Smoking Status: Former smoker Past Alcohol Use History: None Reported Additional Past Alcohol Use History / Comment(s): Pt states he started smoking in 2006 and quit in 2011 Past Drug Use History: None Reported Additional Drug Use History / Comment(s): pt states smokes marijuana a couple times per month - Past Family History Mother Family Medical History: Diabetes Mellitus Additional Family Medical History / Comment(s): heart problems-(pt not sure what they were) Father Family Medical History: Diabetes Mellitus Medications and Allergies Home Medications Medication Instructions Recorded Confirmed Type Insulin Glargine [Lantus] 18 unit SQ HS 06/06/15 11/29/16 History buPROPion SR [Wellbutrin SR] 150 mg PO BID 06/18/15 11/29/16 History amLODIPine [Norvasc] 5 mg PO DAILY 05/04/16 11/29/16 History INSULIN LISPRO (HumaLOG) [humaLOG] 4 units SQ AC-TID 10/16/16 11/29/16 History Lisinopril [Zestril] 20 mg PO BID 10/16/16 11/29/16 History Metoclopramide HCl [Reglan] 5 mg PO TID 10/16/16 11/29/16 History Ranitidine HCl [Zantac] 150 mg PO HS 10/16/16 11/29/16 History Potassium Chloride ER [K-Dur 20] 20 meq PO DAILY 10/20/16 11/29/16 History Ergocalciferol (Vitamin D2) 50,000 unit PO MO 10/26/16 11/29/16 History [Vitamin D2] Allergies Allergy/AdvReac Type Severity Reaction Status Date / Time No Known Allergies Allergy Verified 11/26/16 11:31 Physical Exam Vitals: Vital Signs Temp Pulse Resp BP BP Pulse Ox 11/30/16 07:00 97.9 F 101 H 16 191/114 91 L 11/29/16 23:00 99.0 F 85 17 151/71 95 11/29/16 20:44 167/111 11/29/16 15:00 99.1 F 98 16 160/108 98 Intake and Output 11/29/16 11/30/16 11/30/16 22:59 06:59 14:59 Other: # Voids 0 0 # Bowel Movements 0 0 General appearance: The patient is alert, oriented, in no acute distress. HET: Head is normocephalic and atraumatic. Pupils are equal and reactive. Oropharynx is clear without lesions. Neck: Supple without lymphadenopathy. Trachea midline. Heart: S1 S2. Regular rate and rhythm. Lungs: No crackles or wheezes are heard. Abdomen: Soft, very mild diffuse generalized abdominal discomfort across the midabdomen, nondistended with bowel sounds. No peritoneal signs. No palpable organomegaly or masses. Extremities: Normal skin color and turgor. No cyanosis, rash, ulceration, clubbing, or edema. Radial and pedal pulses are 2/4 bilaterally. Neurological: No focal deficits. Strength and sensation are grossly intact. Results CBC & Chem 7: 11/30/16 09:06 11/29/16 03:30 Labs: Abnormal Lab Results - Last 24 Hours (Table) 11/29/16 11/30/16 Range/Units 11:45 06:56 POC Glucose (mg/dL) 112 H 100 H (75-99) mg/dL Assessment and Plan (1) Gastroparesis due to DM Status: Acute (2) End stage renal disease on dialysis Status: Acute (3) Uncontrolled hypertension Status: Acute (4) Drug-seeking behavior Status: Acute (5) Uncontrolled diabetes mellitus Status: Acute (6) Chronic abdominal pain Status: Acute Plan: 1. Continue Reglan, Protonix and Zofran. 2. Small frequent meals. No plans for endoscopic intervention. 3. Recommend CT abdomen and pelvis for evaluation of abdominal pain. Thank you for this kind referral and the opportunity to participate in the care of your patient. This consultation was discussed with Dr. Estrella. The impression and plan of care have been directed as dictated.
[2016-11-30 10:09] LABS: Calcium 8.3 mg/dL (8.4-10.2); Potassium 4.4 mmol/L (3.5-5.1)
[2016-11-30 12:49] LABS: Glucose,Whole Blood 87 mg/dL (75-99)
[2016-11-30 17:22] LABS: Glucose,Whole Blood 98 mg/dL (75-99)
--- NOTE | 2016-11-30 18:46 | PN ---
Patient is seen for followup for end-stage renal disease. When he was seen today, family was present at bedside, including his parents. There was discussion going on with Dr. Clancy and family along with the nursing staff regarding his repeated admissions. Patient stated that he does not want to continue dialysis. This was discussed with the family as well, and it was decided that patient will let us know later on during the day. He was advised not to make a quick decision regarding these matters. He has been noncompliant as outpatient and has had repeated admissions with tendency towards drug-seeking behavior. On examination today, blood pressure was 168/93, heart rate 98 per minute. He is afebrile. Examination shows no evidence of edema. Abdomen has been soft, nontender, obese. Lungs were clear. DEHYDROGENATION SUPERVISOR exam is grossly intact. Labs show sodium 142, potassium 4.4. Hemoglobin 8.2 g/dL. ASSESSMENT: 1. End-stage renal disease, on hemodialysis on a Saturday, Saturday, Saturday schedule. Etiology is diabetic nephropathy. 2. Hypertension, uncontrolled. Norvasc will be increased to 10 mg daily. 3. Multiple issues, including noncompliance with dialysis and drug-seeking behavior. 4. Anemia of chronic disease. PLAN: Patient was initially scheduled for hemodialysis today; however, at this time he states that he does not want to continue renal replacement therapy. He is aware of the risks associated with discontinuation of dialysis, including risk of , and he states that this is his decision. He states that he is aware of the consequences and this is his decision. Again, patient is advised to let us know later on during the day, and we will arrange for hemodialysis if he wishes to proceed with renal replacement therapy.
[2016-11-30 21:03] LABS: Glucose,Whole Blood 84 mg/dL (75-99)
[2016-11-30] MEDS: INSULIN GLARGINE 100 UNIT/ML 10 ML VIAL SQ SCH (21:11)
--- NOTE | 2016-11-30 22:40 | PN ---
DATE OF SERVICE: 11/30/2016 PRESENTING COMPLAINT: Lying in bed. INTERVAL HISTORY: This is a patient with multiple medical problems. Earlier today, actually Pain Service was called in and cancelled the patient's IV pain medications, realizing that that is not indicated, and patient was put back on Malone. I had done a 24-hour chart of patient's nausea and vomiting; patient had only one reported episode of the same. I discussed with Ronna. Patient has been lying in bed, playing on a Smartphone. Review of systems done for constitutional, cardiovascular, GI, pulmonary; relevant findings as above. Only noted to have a very small amount of vomiting, if any, x1. Current medications are reviewed that include Mal[place]. On examination, temperature 97.9, pulse 101, respiration 16. Blood pressure is 168/93, pulse ox 91% on room air. GENERAL APPEARANCE: Patient is lying in bed, rather comfortable. EYES: Pupils equal. Conjunctivae normal. NECK: JVD not raised. Mass not palpable. RESPIRATORY: Effort normal. LUNGS: Fair air entry. CARDIOVASCULAR: First and second sounds normal. No edema. ABDOMEN: Soft. No guarding or rigidity. PSYCHIATRIC: Alert and oriented x3. Mood and affect appear to be normal. INVESTIGATIONS: White count 7, hemoglobin 8.2. Potassium 4.4. BUN 26, creatinine 8.39. ASSESSMENT: 1. Gastroparesis secondary to underlying diabetes mellitus, type 2. 2. Gastroesophageal reflux disease. 3. Chronic esophagitis. 4. End-stage kidney disease, on hemodialysis. 5. Essential hypertension, fluctuating. 6. Autonomic dysfunction from underlying diabetes. 7. Obesity; body mass index of 39. 8. Depression not otherwise specified. 9. Chronic abdominal pain. Per Pain Management, IV Dilaudid has been discontinued. 10. Noncompliance with followup for dialysis. PLAN: Continue current medication and treatment plan. Await a family meeting today. Family meeting was held with patient's parents, nurse Ronna, nurse practitioner Kristen, and the patient. Lengthy discussion was taken. It was noted that as per GI, even after the last admission, there is no need for IV Dilaudid. Even as per Pain Management, there is no need for IV Dilaudid. Only if patient is not able to tolerate a diet. Patient now is stating that he did not know he was not to be given any food, and we did inform him that he was not given food because he was stating he had nausea and vomiting; and that also if he does not get dialysis he will not get nausea. Also Dr. Martins happened to join the meeting. She did inform that patient has been missing dialysis, and patient did say that oftentimes he does not make it to dialysis. Both the patient's parents were involved in the discussion. I tried to emphasize to the patient and I did explain that it is important that he takes a decision about what to do. Patient kept repeating oftentimes that he does not want to do dialysis; it is too much for him. We did inform him that we will respect his wishes, given that he has got dialysis, but would rather prefer him to have the dialysis. I did inform him that he was not given food because he kept complaining of nausea and vomiting, but if he wants food, we will actually give it to him. When we left the room, it was decided that patient will talk to the family and let us know what to do. Later in the evening the nurse gave me a call, saying that patient wanted to leave AGAINST MEDICAL ADVICE. I did go back to the room and told the patient that I am really sad that he is determined to take this decision, and that he really needs to get hemodialysis. He should get hemodialyzed; otherwise it will be extremity detrimental. Patient chose not to answer. Earlier today food was ordered.
[2016-12-01] MEDS: HYDROcodone/APAP 7.5-325MG 1 EACH TAB PO PRN ×3 (01:57→13:12)
[2016-12-01 07:03] LABS: Glucose,Whole Blood 87 mg/dL (75-99)
[2016-12-01 07:27] VITALS: BP 157/105; PULSE 92; TEMP 98.6
[2016-12-01] MEDS: ENOXAPARIN 30 MG/0.3 ML SYRINGE SQ SCH (08:27)
[2016-12-01] MEDS: PANTOPRAZOLE 40 MG/10 ML VIAL IVP SCH (08:27)
[2016-12-01] MEDS: buPROPion SR 150 MG TABLET.ER PO SCH (08:28)
[2016-12-01] MEDS: INSULIN LISPRO (humaLOG) 300 UNIT/3 ML VIAL SQ SCH ×3 (08:28→17:56)
[2016-12-01] MEDS: METOPROLOL TARTRATE 50 MG TAB PO SCH (08:28)
[2016-12-01] MEDS: METOCLOPRAMIDE 5 MG TAB PO SCH ×2 (08:28→17:16)
[2016-12-01] MEDS: LISINOPRIL 20 MG TAB PO SCH (08:28)
[2016-12-01] MEDS: amLODIPine 5 MG TAB PO SCH (08:29)
[2016-12-01] MEDS: POTASSIUM CHLORIDE ER 20 MEQ TAB.ER PO SCH (08:29)
[2016-12-01] MEDS: CALCIUM ACETATE 667 MG CAP PO SCH ×3 (08:29→17:56)
[2016-12-01 08:38] LABS: CH 27.8; CHCM 30.4; HCT 26.3 % (39.0-53.0); HDW 2.35; HGB 7.9 gm/dL (13.0-17.5); Hypochromasia Moderate; MCH 27.7 pg (25.0-35.0); MCHC 30.2 g/dL (31.0-37.0); MCV 91.7 fL (80.0-100.0); Mean Platelet Volume 6.7; RBC 2.87 m/uL (4.30-5.90); RDW 15.1 % (11.5-15.5); WBC 9.3 k/uL (3.8-10.6)
[2016-12-01 08:49] LABS: Calcium 8.4 mg/dL (8.4-10.2); Potassium 4.5 mmol/L (3.5-5.1)
--- NOTE | 2016-12-01 11:47 | P.PN ---
Subjective Principal diagnosis: This is a 26-year-old male with ESRD on dialysis Saturday came in because of abdominal pain. Yesterday he refused dialysis and said he wants to stop dialysis. This morning he changes his mind. Other than this he is feeling fine no nausea vomiting diarrhea fever chills cough shortness of breath. He has no significant complaints. He has had dialysis for 2 days on Saturday and this week Objective - Vital Signs Vital signs: Vital Signs Temp 98.6 F 12/01/16 07:00 Pulse 92 12/01/16 07:00 Resp 16 12/01/16 07:00 BP 157/105 12/01/16 07:00 Pulse Ox 95 12/01/16 07:00 Intake & Output 11/30/16 12/01/16 12/01/16 18:59 06:59 18:59 Intake Total 118 Balance 118 Weight 115 kg 115 kg Intake: Oral 118 Other: Voiding Method Toilet # Voids 2 1 And examinations awake alert oriented comfortable. On nasal cannula O2. HEENT exam no JVP neck is supple no facial asymmetry Lungs are clear to auscultation percussion good air entry bilaterally. Heart sounds unremarkable no murmur rub gallop. Abdomen soft nontender no organomegaly status masses Extremity exam was no edema Neurologically awake alert oriented. - Labs CBC & Chem 7: 12/01/16 08:20 12/01/16 08:20 Labs: Abnormal Lab Results - Last 24 Hours (Table) 12/01/16 12/01/16 Range/Units 08:20 08:20 RBC 2.87 L (4.30-5.90) m/uL Hgb 7.9 L (13.0-17.5) gm/dL Hct 26.3 L (39.0-53.0) % MCHC 30.2 L (31.0-37.0) g/dL BUN 32 H (9-20) mg/dL Creatinine 9.37 H* (0.66-1.25) mg/dL Assessment and Plan Plan: Impression. 1. ESRD on dialysis Saturday was a Saturday. Noncompliance. Last dialysis Saturday and so far this week. Yesterday he declined dialysis and now he wants to be dialyzed. 2. Anemia with hemoglobin of 7.9 etiology is ESRD. Rule out iron deficiency. 3. Calcium is 8.4 phosphorus not available. 4. Diabetes mellitus blood sugars are controlled in the 80s of. 5. History of noncompliance. 6. History of medication seeking behavior. Recommendation. 1. Will try to get him dialyzed today and he could be discharged. 2. Start Aranesp 40 g subcu weekly
[2016-12-01] MEDS ORDERED: DARBEPOETIN ALFA 40 MCG/0.4 ML SYRINGE SQ SCH (12:00)
[2016-12-01 12:29] LABS: Glucose,Whole Blood 71 mg/dL (75-99)
[2016-12-01 17:19] LABS: Glucose,Whole Blood 94 mg/dL (75-99)
--- NOTE | 2016-12-02 10:29 | DS ---
DATE OF ADMISSION: 11/29/2016 DATE OF DISCHARGE: 12/01/2016 FINAL DIAGNOSES: 1. Gastroparesis acute flare-up secondary to underlying diabetes mellitus type 2. 2. Gastroesophageal reflux disease. 3. Chronic esophagitis. 4. End stage kidney disease on hemodialysis. 5. Essential hypertension. 6. Autonomic dysfunction from underlying diabetes. 7. Obesity, BMI of 39. 8. Depression, not otherwise specified. 9. Noncompliant with follow-up with dialysis. CONSULTATION: Dr. Guerin from pain management and Dr. Олег Estrella from GI. Dr. Martins from nephrology. HOSPITAL COURSE: The patient admitted with nausea, vomiting. She was made n.p.o. Patient had no nausea or vomiting charted, ( ) the bedside only had one episode. Patient wanted IV Dilaudid. Pain management and Dr. Guerin was consulted and they decided rightfully so that patient does not have any IV Dilaudid indication. ( ) plus GI, had a family meeting the patient, parents and Dr. Martins. The patient has been missing quite a few dialysis and did tell them that if he continues to do this he will eventually . Patient at the time of discharge, tolerating a diet. Did have his hemodialysis today. DISCHARGE MEDICATIONS: 1. Lantus 18 units subcu q.h.s. 2. Wellbutrin SR150 mg p.o. b.i.d. 3. Lopressor 100 mg p.o. b.i.d. 4. Norvasc 5 mg p.o. daily. 5. Zofran 4 mg q.8 p.r.n. 6. Humalog 4 units subcu t.i.d. 7. Zestril 20 mg p.o. b.i.d. 8. Reglan 5 mg p.o. t.i.d. 9. Zantac 150 mg p.o. q.h.s. 10. Potassium 20 p.o. daily. 11. Vitamin D2, 50,000 units Saturday. 12. [place] 7.5 1 tablets q.4 p.r.n. 13. PhosLo 1 tablet p.o. t.i.d. Patient to maintain his hemodialysis schedule. Follow up with Dr. Bailey in 2 days, Dr. Олег Estrella one week, Dr. Al-Theron from pain management. On examination, LUNGS: Fair air entry. CARDIOVASCULAR: First and second sounds normal. ABDOMEN: Soft, nontender
[2016-12-03] MEDS ORDERED: ERGOCALCIFEROL 50,000 UNIT CAP PO SCH (12:00)
== END 2016-12-01 18:15 | disposition home or self-care (01) ==
LOC: EC 02:26 → INTOOBSV 06:06 → 4MS4W 06:06
PROVIDERS: ADMIT Hospitalist; ATTEND Hospitalist
DX: E11.43 Type 2 diabetes mellitus with diabetic autonomic (poly)neuropathy (principal); N18.6 End stage renal disease; I12.0 Hypertensive chronic kidney disease with stage 5 chronic kidney disease or end stage renal disease; E11.40 Type 2 diabetes mellitus with diabetic neuropathy, unspecified; E11.21 Type 2 diabetes mellitus with diabetic nephropathy; E11.22 Type 2 diabetes mellitus with diabetic chronic kidney disease; E11.65 Type 2 diabetes mellitus with hyperglycemia; K31.84 Gastroparesis; K21.0 Gastro-esophageal reflux disease with esophagitis; Z99.2 Dependence on renal dialysis; E66.9 Obesity, unspecified; Z68.39 Body mass index [BMI] 39.0-39.9, adult; E78.5 Hyperlipidemia, unspecified; D63.8 Anemia in other chronic diseases classified elsewhere; F90.9 Attention-deficit hyperactivity disorder, unspecified type; J45.909 Unspecified asthma, uncomplicated; G89.29 Other chronic pain; F41.9 Anxiety disorder, unspecified; K44.9 Diaphragmatic hernia without obstruction or gangrene; M19.91 Primary osteoarthritis, unspecified site; F12.90 Cannabis use, unspecified, uncomplicated; F32.9 Major depressive disorder, single episode, unspecified; Z86.14 Personal history of Methicillin resistant Staphylococcus aureus infection; Z87.891 Personal history of nicotine dependence; Z91.19 Patient's noncompliance with other medical treatment and regimen; Z91.14 Patient's other noncompliance with medication regimen; Z76.5 Malingerer [conscious simulation]; Z79.4 Long term (current) use of insulin; Z79.899 Other long term (current) drug therapy; Z83.3 Family history of diabetes mellitus
CPT/HCPCS: 96376; 96361 ×3; 96372 ×3; 96374; 96375; 99285; 36415; 93005; 80053; 80048 ×2; 82009; 83735; 84100; 85025; 85027 ×2; G0378 ×3; J2060; J1170 ×2; J1200; J2765; S0106 ×3; J2405; J1650 ×3; C9113 ×2; J0881; 90935

== ENCOUNTER 2016-12-03 09:32 | Observation (INO) | payer OTHER ==
[2016-12-03] MEDS ORDERED: ONDANSETRON 4 MG/2 ML VIAL IVP STA (10:09)
[2016-12-03] MEDS ORDERED: SODIUM CHLORIDE 0.9% 1,000 ML IV STA (10:09)
[2016-12-03] MEDS ORDERED: HYDROmorphone 1 MG/ML 1 ML SYRINGE IVP STA ×2 (10:09→13:08)
[2016-12-03] MEDS ORDERED: diphenhydrAMINE 50 MG/ML 1 ML VIAL IVP STA (10:10)
[2016-12-03 10:36] LABS: Basophils % (A) 0 %; CH 27.9; CHCM 31.1; Eosinophils # (A) 0.2 k/uL (0-0.7); Eosinophils % (A) 2 %; HCT 28.3 % (39.0-53.0); HDW 2.49; HGB 8.7 gm/dL (13.0-17.5); Hypochromasia Slight; Luc # (Auto) 0.25; Luc % (Auto) 3; Lymphocytes % (A) 20 %; MCH 27.7 pg (25.0-35.0); MCHC 30.7 g/dL (31.0-37.0); MCV 90.3 fL (80.0-100.0); Mean Platelet Volume 7.7; Monocytes # (A) 0.6 k/uL (0-1.0); Monocytes % (A) 7 %; Neutrophils # (A) 6.9 k/uL (1.3-7.7); Neutrophils % (A) 69 %; RBC 3.13 m/uL (4.30-5.90); RDW 15.7 % (11.5-15.5); WBC 9.9 k/uL (3.8-10.6); WBC (Perox) 10.19
[2016-12-03] MEDS ORDERED: METOCLOPRAMIDE 5 MG/ML 2 ML VIAL IVP STA (10:40)
[2016-12-03] MEDS ORDERED: LORazepam 2 MG/ML SYRINGE IV STA (10:41)
[2016-12-03] MEDS ORDERED: hydrALAZINE HCL 20 MG/ML 1 ML VIAL IVP STA ×2 (10:44→11:37)
--- NOTE | 2016-12-03 10:45 | ED ---
Abdominal Pain HPI - General Chief Complaint: Abdominal Pain Stated Complaint: abdominal pain, vomiting and back pain Time Seen by Provider: 12/03/16 10:08 Source: patient, RN notes reviewed Mode of arrival: wheelchair Limitations: no limitations - History of Present Illness Initial Comments: 26-year-old male presents emergency Department with chief complaint abdominal pain, back pain. Patient states his pain started earlier this morning states it feels that his typical abdominal issues. Patient has ongoing chronic abdominal pain, gastroparesis, renal failure on hemodialysis and diabetes. Patient states he has been vomiting this morning. Patient was just in the hospital a few days ago for similar problems. Patient states he tried his medications at home no relief. Patient denies any hematemesis or or coffee- ground emesis. Denies any fevers or chills no chest pain or shortness breath. - Related Data Home Medications Medication Instructions Recorded Confirmed Insulin Glargine [Lantus] 18 unit SQ HS 06/06/15 11/29/16 buPROPion SR [Wellbutrin SR] 150 mg PO BID 06/18/15 11/29/16 amLODIPine [Norvasc] 5 mg PO DAILY 05/04/16 11/29/16 INSULIN LISPRO (HumaLOG) [humaLOG] 4 units SQ AC-TID 10/16/16 11/29/16 Lisinopril [Zestril] 20 mg PO BID 10/16/16 11/29/16 Metoclopramide HCl [Reglan] 5 mg PO TID 10/16/16 11/29/16 Ranitidine HCl [Zantac] 150 mg PO HS 10/16/16 11/29/16 Potassium Chloride ER [K-Dur 20] 20 meq PO DAILY 10/20/16 11/29/16 Ergocalciferol (Vitamin D2) 50,000 unit PO MO 10/26/16 11/29/16 [Vitamin D2] Previous Rx's Medication Instructions Recorded Metoprolol Tartrate [Lopressor] 100 mg PO BID #60 tab 07/16/15 Ondansetron Odt [Zofran ODT] 4 mg PO Q8HR PRN #15 tab 08/03/16 HYDROcodone/APAP 7.5-325MG [[place] 1 tab PO Q4H PRN #30 tab 10/28/16 7.5-325] Calcium Acetate [PhosLo] 667 mg PO TID-W/MEALS #90 cap 11/21/16 Allergies Allergy/AdvReac Type Severity Reaction Status Date / Time No Known Allergies Allergy Verified 12/03/16 11:24 Review of Systems ROS Statement: Those systems with pertinent positive or pertinent negative responses have been documented in the HPI. ROS Other: All systems not noted in ROS Statement are negative. Past Medical History Past Medical History: Asthma, Diabetes Mellitus, GERD/Reflux, Hypertension, Osteoarthritis (OA), Renal Disease Additional Past Medical History / Comment(s): IDDM type I, GASTROPARESIS, gastritis, esophagitis,cyclic vomiting syndrome, DKA episodes, hiatal hernia, as child had seizure r/t high fever, pancreatits(idiopathic), chronic kidney disease stage III-hemodialysis //Saturday-last hemo done 11/22/16, L leg neuropathy, migraines. History of Any Multi-Drug Resistant Organisms: MRSA Date of last positivie culture/infection: MDRO Source:: CHIN/ Rt leg Past Surgical History: Cholecystectomy, Orthopedic Surgery, Tonsillectomy Additional Past Surgical History / Comment(s): R upper chest hemodialysis catheter, PICC line, LEFT ELBOW pinned, egd's w/ bx's last done 05-30-16. Past Anesthesia/Blood Transfusion Reactions: No Reported Reaction Past Psychological History: ADD/ADHD, Anxiety, Depression Additional Psychological History / Comment(s): Pt resides with his mother. He is independent. Smoking Status: Former smoker Past Alcohol Use History: None Reported Additional Past Alcohol Use History / Comment(s): Pt states he started smoking in 2006 and quit in 2011 Past Drug Use History: None Reported Additional Drug Use History / Comment(s): pt states smokes marijuana a couple times per month - Past Family History Mother Family Medical History: Diabetes Mellitus Additional Family Medical History / Comment(s): heart problems-(pt not sure what they were) Father Family Medical History: Diabetes Mellitus General Exam Limitations: no limitations General appearance: alert, in no apparent distress ENT exam: Present: normal oropharynx Neck exam: Present: normal inspection, full ROM. Absent: tenderness, meningismus, lymphadenopathy Respiratory exam: Present: normal lung sounds bilaterally. Absent: respiratory distress, wheezes, rales, rhonchi, stridor Cardiovascular Exam: Present: normal rhythm, tachycardia, normal heart sounds. Absent: systolic murmur, diastolic murmur, rubs, gallop, clicks GI/Abdominal exam: Present: soft, tenderness (Moderate diffuse), normal bowel sounds. Absent: distended, guarding, rebound, rigid Back exam: Absent: CVA tenderness (R), CVA tenderness (L) Skin exam: Present: warm, dry, intact, normal color. Absent: rash Course Vital Signs 12/03/16 12/03/16 12/03/16 09:59 11:25 11:55 Temperature 97.9 F Pulse Rate 123 H 119 H 120 H Respiratory 24 22 22 Rate Blood Pressure 204/123 247/115 241/115 O2 Sat by Pulse 100 99 99 Oximetry 12/03/16 12/03/16 12:25 12:43 Temperature Pulse Rate 107 H 99 Respiratory 18 18 Rate Blood Pressure 219/97 220/106 O2 Sat by Pulse 96 99 Oximetry Medical Decision Making - Lab Data Result diagrams: 12/03/16 10:15 12/03/16 10:15 Lab Results 12/03/16 12/03/16 12/03/16 Range/Units 10:15 10:15 10:44 WBC 9.9 (3.8-10.6) k/uL RBC 3.13 L (4.30-5.90) m/uL Hgb 8.7 L (13.0-17.5) gm/dL Hct 28.3 L (39.0-53.0) % MCV 90.3 (80.0-100.0) fL MCH 27.7 (25.0-35.0) pg MCHC 30.7 L (31.0-37.0) g/dL RDW 15.7 H (11.5-15.5) % Plt Count 292 (150-450) k/uL Neutrophils % 69 % Lymphocytes % 20 % Monocytes % 7 % Eosinophils % 2 % Basophils % 0 % Neutrophils # 6.9 (1.3-7.7) k/uL Lymphocytes # 2.0 (1.0-4.8) k/uL Monocytes # 0.6 (0-1.0) k/uL Eosinophils # 0.2 (0-0.7) k/uL Basophils # 0.0 (0-0.2) k/uL Hypochromasia Slight Sodium 145 (137-145) mmol/L Potassium 3.5 (3.5-5.1) mmol/L Chloride 106 (98-107) mmol/L Carbon Dioxide 26 (22-30) mmol/L Anion Gap 13 mmol/L BUN 29 H (9-20) mg/dL Creatinine 9.56 H* (0.66-1.25) mg/dL Est GFR (MDRD) Af Amer 8 (>60 ml/min/1.73 sqM) Est GFR (MDRD) Non-Af 7 (>60 ml/min/1.73 sqM) Glucose 42 L* (74-99) mg/dL POC Glucose (mg/dL) 46 L (75-99) mg/dL POC Glu Faculty I On Call Medical Assistant ID Deysi Mcdaniel Calcium 8.7 (8.4-10.2) mg/dL Total Bilirubin 0.5 (0.2-1.3) mg/dL AST 25 (17-59) U/L ALT 19 L (21-72) U/L Alkaline Phosphatase 113 (38-126) U/L Total Protein 6.6 (6.3-8.2) g/dL Albumin 3.2 L (3.5-5.0) g/dL Amylase 90 (30-110) U/L Lipase 71 (23-300) U/L Acetone, Qual Negative (Negative) 12/03/16 12/03/16 Range/Units 11:03 12:14 WBC (3.8-10.6) k/uL RBC (4.30-5.90) m/uL Hgb (13.0-17.5) gm/dL Hct (39.0-53.0) % MCV (80.0-100.0) fL MCH (25.0-35.0) pg MCHC (31.0-37.0) g/dL RDW (11.5-15.5) % Plt Count (150-450) k/uL Neutrophils % % Lymphocytes % % Monocytes % % Eosinophils % % Basophils % % Neutrophils # (1.3-7.7) k/uL Lymphocytes # (1.0-4.8) k/uL Monocytes # (0-1.0) k/uL Eosinophils # (0-0.7) k/uL Basophils # (0-0.2) k/uL Hypochromasia Sodium (137-145) mmol/L Potassium (3.5-5.1) mmol/L Chloride (98-107) mmol/L Carbon Dioxide (22-30) mmol/L Anion Gap mmol/L BUN (9-20) mg/dL Creatinine (0.66-1.25) mg/dL Est GFR (MDRD) Af Amer (>60 ml/min/1.73 sqM) Est GFR (MDRD) Non-Af (>60 ml/min/1.73 sqM) Glucose (74-99) mg/dL POC Glucose (mg/dL) 122 H 85 (75-99) mg/dL POC Glu Faculty I On Call Medical Assistant ID Deysi Mcdaniel Calcium (8.4-10.2) mg/dL Total Bilirubin (0.2-1.3) mg/dL AST (17-59) U/L ALT (21-72) U/L Alkaline Phosphatase (38-126) U/L Total Protein (6.3-8.2) g/dL Albumin (3.5-5.0) g/dL Amylase (30-110) U/L Lipase (23-300) U/L Acetone, Qual (Negative) Disposition Clinical Impression: Dehydration, Intractable nausea and vomiting, Intractable abdominal pain, Renal failure, Hypertensive urgency, Hypoglycemia Disposition: ADMITTED IP TO THIS HOSP Condition: Fair Referrals: Myron Bailey DO [Primary Care Provider] - 1-2 days
[2016-12-03 10:46] LABS: ALT 19 U/L (21-72); AST 25 U/L (17-59); Alkaline Phosphatase 113 U/L (38-126); Amylase 90 U/L (30-110); Anion Gap 13 mmol/L; Blood Urea Nitrogen 29 mg/dL (9-20); Calcium 8.7 mg/dL (8.4-10.2); Carbon Dioxide 26 mmol/L (22-30); Chloride 106 mmol/L (98-107); Potassium 3.5 mmol/L (3.5-5.1); Sodium 145 mmol/L (137-145); Total Bilirubin 0.5 mg/dL (0.2-1.3); Total Protein 6.6 g/dL (6.3-8.2)
[2016-12-03] MEDS ORDERED: DEXTROSE 50%-WATER 50 ML SYRINGE IVP STA (10:46)
[2016-12-03 10:50] LABS: Glucose,Whole Blood 46 mg/dL (75-99)
[2016-12-03 11:07] LABS: Glucose,Whole Blood 122 mg/dL (75-99)
[2016-12-03 11:09] LABS: Glucose 42 mg/dL (74-99); Non-African American GFR(MDRD) 7 (>60 ml/min/1.73 sqM)
[2016-12-03 12:21] LABS: Glucose,Whole Blood 85 mg/dL (75-99)
[2016-12-03] MEDS ORDERED: LABETALOL 5 MG/ML VIAL MDV IVP STA ×2 (12:50→13:08)
[2016-12-03 13:08] LABS: Glucose,Whole Blood 95 mg/dL (75-99)
[2016-12-03] MEDS ORDERED: ONDANSETRON 4 MG/2 ML VIAL IVP PRN (13:10)
[2016-12-03] MEDS ORDERED: HYDROmorphone 1 MG/ML 1 ML SYRINGE IV PRN (13:10)
[2016-12-03] MEDS ORDERED: NALOXONE 0.4 MG/ML 1 ML VIAL IV PRN (13:10)
[2016-12-03] MEDS ORDERED: DEXTROSE 5%-0.45% NACL 1,000 ML IV ONE (13:12)
[2016-12-03] MEDS ORDERED: hydrALAZINE HCL 20 MG/ML 1 ML VIAL IVP PRN (13:13)
[2016-12-03 13:32] LABS: Appearance,Urine Clear (Clear); Bacteria,Urine Rare /hpf; Bilirubin,Urine Negative (Negative); Glucose,Urine (UA) Trace (Negative); Ketones,Urine Negative (Negative); Leukocyte Esterase,Urine Negative (Negative); Mucus,Urine Rare /hpf; Nitrite,Urine Negative (Negative); PH, Urine 8.5 (5.0-8.0); Particle Count 2124; Protein,Urine 4+ (Negative); RBC,Urine 10 /hpf (0-5); Specific Gravity,Urine 1.009 (1.001-1.035); Squamous Epithelial Cell,Urine 1 /hpf (0-4); UA Billing (MACRO vs. MICRO) MICRO; Urobilinogen,Urine <2.0 mg/dL (<2.0); WBC,Urine 19 /hpf (0-5)
[2016-12-03 15:40] LABS: Glucose,Whole Blood 116 mg/dL (75-99)
[2016-12-03 16:04] LABS: Glucose,Whole Blood 118 mg/dL (75-99)
[2016-12-03 16:25] VITALS: BMI 39.1
[2016-12-03] MEDS: INSULIN LISPRO (humaLOG) 300 UNIT/3 ML VIAL SQ SCH ×2 (16:33→21:38)
[2016-12-03] MEDS: METOCLOPRAMIDE 5 MG TAB PO SCH ×2 (17:51→21:37)
[2016-12-03] MEDS: amLODIPine 5 MG TAB PO SCH (17:51)
[2016-12-03 18:36] LABS: Hemoglobin A1C 6.8 % (4.2-6.1)
[2016-12-03] MEDS: METOPROLOL TARTRATE 50 MG TAB PO SCH (20:14)
[2016-12-03] MEDS: LISINOPRIL 20 MG TAB PO SCH (20:14)
[2016-12-03] MEDS: buPROPion SR 150 MG TABLET.ER PO SCH (20:14)
[2016-12-03] MEDS: HYDROcodone/APAP 7.5-325MG 1 EACH TAB PO PRN (20:19)
[2016-12-03] MEDS ORDERED: ERGOCALCIFEROL 50,000 UNIT CAP PO SCH (20:30)
[2016-12-03] MEDS ORDERED: INSULIN GLARGINE 100 UNIT/ML 10 ML VIAL SQ SCH (21:00)
[2016-12-03] MEDS ORDERED: FAMOTIDINE 20 MG TAB PO SCH (21:00)
[2016-12-03 21:38] LABS: Glucose,Whole Blood 127 mg/dL (75-99)
[2016-12-04] MEDS: HYDROcodone/APAP 7.5-325MG 1 EACH TAB PO PRN ×3 (05:13→16:57)
[2016-12-04 05:16] LABS: Anisocytosis Slight; Basophils % (A) 0 %; CH 27.8; CHCM 30.1; Eosinophils # (A) 0.2 k/uL (0-0.7); Eosinophils % (A) 3 %; HDW 2.38; HGB 7.4 gm/dL (13.0-17.5); Hypochromasia Moderate; Luc # (Auto) 0.12; Luc % (Auto) 2; Lymphocytes # (A) 1.5 k/uL (1.0-4.8); Lymphocytes % (A) 25 %; MCH 28.6 pg (25.0-35.0); MCHC 30.7 g/dL (31.0-37.0); Monocytes # (A) 0.5 k/uL (0-1.0); Monocytes % (A) 8 %; Neutrophils # (A) 3.5 k/uL (1.3-7.7); Neutrophils % (A) 61 %; RBC 2.58 m/uL (4.30-5.90); RDW 16.1 % (11.5-15.5); WBC 5.8 k/uL (3.8-10.6); WBC (Perox) 6.03
[2016-12-04 05:42] LABS: Calcium 8.1 mg/dL (8.4-10.2); Magnesium 2.4 mg/dL (1.6-2.3); Phosphorous 4.5 mg/dL (2.5-4.5); Potassium 3.8 mmol/L (3.5-5.1); Total Bilirubin 0.2 mg/dL (0.2-1.3); Total Protein 5.1 g/dL (6.3-8.2)
--- NOTE | 2016-12-04 07:25 | HP ---
DATE OF ADMISSION: 12/03/2016 PRESENTING COMPLAINT: Nausea, vomiting. HISTORY OF PRESENTING COMPLAINT: This is a 26-year-old patient of Dr. Bailey with multiple hospital admissions. Chronic stable medical conditions include esophagitis, chronic kidney disease on hemodialysis, depression, hypertension. On last admission had a long talk with the patient, his mother and father and also Dr. Martins said patient has not been coming to his dialysis. The patient just got discharged on Saturday and today was his day of dialysis. Patient came in saying not feeling well, had nausea, vomiting. Blood pressure was over 200 systolic and patient was admitted. Patient was then given IV Dilaudid. ( ) not to start the same. I did speak to the nurse Rosi. She said patient already had a turkey sandwich and is resting comfortably. Had not witnessed any vomiting at all. REVIEW OF SYSTEMS: CONSTITUTIONAL: None. HEENT: None. RESPIRATORY: None. CARDIOVASCULAR: None. GASTROINTESTINAL: As above and currently the patient just had a turkey sandwich. MUSCULOSKELETAL: Occasional low back pain. DERMATOLOGICAL: None. HEMATOLOGIC: None. LYMPHATIC: None. PSYCHIATRY: None. NEUROLOGICAL: None. The patient is claiming that he is having severe abdominal pain though actually resting comfortably when I saw him. PAST HISTORY: Diabetes type 2, GERD, hypertension, gastroparesis, esophagitis, chronic kidney disease on hemodialysis, questionable chronic abdominal pain. PAST SURGICAL HISTORY: Tonsillectomy, cholecystectomy, right upper chest hemodialysis catheter, left elbow pinning. SOCIAL HISTORY: Lives with mother. Patient smoked from 2006 to 2011. Does medical marijuana occasionally. HOME MEDICATIONS PER DISCHARGE SUMMARY: 1. Lantus 18 units subcu q.h.s. 2. Wellbutrin SR 150 mg p.o. b.i.d. 3. Lopressor 100 mg p.o. b.i.d. 4. Norvasc 5 mg p.o. daily. 5. Zofran 4 mg q.8 p.r.n. 6. Humalog 4 units subcu t.i.d. 7. Zestril 20 mg b.i.d. 8. Reglan 5 mg t.i.d. 9. Zantac 150 mg p.o. q.h.s. 10. Potassium 20 mEq a day. 11. Vitamin D2, 50,000 units on Saturday. 12. [place] 7.5 q.4 p.r.n. 13. PhosLo 1 tablet t.i.d. ALLERGIES: None. On examination, temperature 98.6, pulse 106, respirations 27, blood pressure 193/100, pulse ox 100% on room air. GENERAL APPEARANCE: Well built; ( ), lying in comfortable when I walked in the room. EYES: Pupils equal. Conjunctivae normal. HEENT: Oral cavity normal. NECK: JVD unable to assess. Mass not palpable. RESPIRATORY: Effort normal. LUNGS: Fair air entry. CARDIOVASCULAR: First and second sounds normal. No edema. ABDOMEN: Soft, nontender. Liver and spleen not palpable. The patient acted as he was tender. LYMPHATIC: No lymph node palpable in neck or axillae. PSYCHIATRY: Alert and oriented x3. Mood and affect normal. NEUROLOGICAL: Pupils equal. Cranial nerves grossly intact. Power and sensation grossly intact. INVESTIGATIONS: White count 9.9, hemoglobin 8.7. Potassium 3.5, BUN 29, creatinine 9.56. Glucose 42. Serum acetone negative. ASSESSMENT: 1. Accelerated hypertension in a patient who has been noncompliant with his medication. 2. End-stage kidney disease on hemodialysis. 3. Gastroparesis secondary to underlying diabetes mellitus type 2. 4. Gastroesophageal reflux disease. 5. Chronic esophagitis. 6. Autonomic dysfunction from underlying diabetes. 7. Obesity; body mass index greater than 39. 8. Chronic abdominal pain. Has had multiple pain counseling and gastrointestinal workup, all has been negative. PLAN: Patient's home medications are resumed. Nephrology was consulted. As patient has already eaten a turkey sandwich, will stop his Dilaudid and start him on Varina. Patient should get dialyzed. Accu-Cheks closely being followed. Patient is on a D5 half saline drip.
[2016-12-04 08:01] LABS: Glucose,Whole Blood 131 mg/dL (75-99)
[2016-12-04] MEDS: METOCLOPRAMIDE 5 MG TAB PO SCH (08:30)
[2016-12-04] MEDS: LISINOPRIL 20 MG TAB PO SCH (08:30)
[2016-12-04] MEDS: METOPROLOL TARTRATE 50 MG TAB PO SCH (08:30)
[2016-12-04] MEDS: CALCIUM ACETATE 667 MG CAP PO SCH ×2 (08:30→12:37)
[2016-12-04] MEDS: buPROPion SR 150 MG TABLET.ER PO SCH (08:30)
[2016-12-04] MEDS: amLODIPine 5 MG TAB PO SCH (08:31)
[2016-12-04] MEDS: INSULIN LISPRO (humaLOG) 300 UNIT/3 ML VIAL SQ SCH ×4 (08:32→12:37)
[2016-12-04] MEDS ORDERED: POTASSIUM CHLORIDE ER 20 MEQ TAB.ER PO SCH (09:00)
[2016-12-04] MEDS ORDERED: ENOXAPARIN 40 MG/0.4 ML SYRINGE SQ SCH (09:00)
[2016-12-04] MEDS ORDERED: amLODIPine 5 MG TAB PO SCH (09:00)
[2016-12-04 11:23] LABS: Glucose,Whole Blood 130 mg/dL (75-99)
[2016-12-04 14:41] VITALS: RESP 16; TEMP 98.3
[2016-12-04 16:43] VITALS: BP 162/109; PULSE 89
[2016-12-04 17:02] LABS: Glucose,Whole Blood 116 mg/dL (75-99)
[2016-12-05] MEDS ORDERED: ENOXAPARIN 30 MG/0.3 ML SYRINGE SQ SCH (09:00)
--- NOTE | 2016-12-05 10:36 | CONS ---
DATE OF CONSULTATION: 12/04/2016 REASON FOR CONSULTATION: End-stage renal disease. HISTORY OF PRESENT ILLNESS: Patient is a 26-year-old male with a history of end-stage renal disease on hemodialysis on a Saturday, Saturday, Saturday schedule as outpatient. Patient was admitted to the hospital with back pain again. His pain is resolved. He missed his dialysis yesterday. He will be dialyzed today. It appears that he was going home, following which he is advised to followup with his regular hemodialysis treatment as outpatient tomorrow. The rest of the consultation is as per previous consultation. On examination today, blood pressure was 137/99, heart rate 91 per minute. He is afebrile. Examination of the heart, S1 and S2. Examination of the lungs, bilateral breath sounds are heard. Abdomen is soft, nontender. Examination of lower extremities shows no evidence of edema. Labs reveal sodium 141, potassium 3.8. Hemoglobin 7.4 g/dL. ASSESSMENT: 1. End-stage renal disease, currently on hemodialysis on a Saturday, Saturday, Saturday schedule. Patient has been noncompliant with his treatments as outpatient. He is advised to follow up and treatment tomorrow in the meantime he will be dialyzed today. 2. Anemia of chronic disease. 3. Drug-seeking behavior. 4. Strong history of noncompliance with renal replacement therapy as outpatient. PLAN: The patient will be dialyzed today. He will follow up as outpatient for hemodialysis tomorrow for his regular treatment schedule. Thank you for this consultation.
--- NOTE | 2016-12-05 15:23 | DS ---
DATE OF ADMISSION: 12/03/2016 DATE OF DISCHARGE: 12/04/2016 FINAL DIAGNOSES: 1. Accelerated hypertension in a patient who has been noncompliant with his medication, under better control. 2. End-stage kidney disease on hemodialysis. 3. Gastroparesis secondary to underlying diabetes mellitus type 2. 4. Gastroesophageal reflux disease. 5. Chronic esophagitis. 6. Autonomic dysfunction from underlying diabetes. 7. Obesity; body mass index greater than 39. 8. Chronic abdominal pain. Has had multiple pain counseling and gastrointestinal work-up all have been negative. CONSULTANTS: Dr. Martins of Nephrology for hemodialysis. HOSPITAL COURSE: This patient presented with complaints of nausea and vomiting. Patient has a long-standing history of multiple hospital admissions and gastroparesis in addition to esophagitis, chronic kidney disease, hypertension. Patient presented with a flare up of gastroparesis, received IV Dilaudid one time and did not receive any further doses as it is not indicated for this condition. Patient was able to eat a sandwich and had no further vomiting. Hypertension was systolic over 200 on admission and patient received appropriate medications. Blood pressure improved. Patient received hemodialysis today as scheduled and had a meal afterwards with no nausea and no vomiting. Patient is doing better; therefore is being discharged home. PHYSICAL EXAM: CARDIOVASCULAR: First and second sounds noted. Generalized edema. RESPIRATORY: Lung sounds diminished bilaterally. ABDOMEN: Soft, nontender to palpation. No noted nausea or vomiting. DISCHARGE MEDICATIONS: 1. Insulin 18 units subQ at bedtime. 2. Bupropion 150 mg p.o. b.i.d. 3. Lopressor 100 mg p.o. b.i.d. 4. Norvasc 5 mg p.o. daily. 5. Zofran 4 mg p.o. q.8 hours p.r.n. 6. Lisinopril 4 units subQ a.c. t.i.d. 7. Lisinopril 20 mg p.o. b.i.d. 8. Reglan 5 mg p.o. t.i.d. 9. Zantac 150 mg p.o. at bedtime. 10. Potassium chloride ER 20 mEq p.o. daily. 11. Vitamin D2 fifty thousand units p.o. on Mondays. 12. Hydrocodone/Tylenol 7.5/325 one tab p.o. q.4 hours. 13. PhosLo 667 mg p.o. t.i.d. with meals. DISPOSITION: Patient is stable and is being discharged home. Patient instructed to follow up at the [facility] on the assigned days as well as with Dr. Myron Bailey on 12/05, his primary care provider. Patient seen and examined by nurse practitioner, Kristen Martínez and all elements of the case discussed with attending, Dr. Clancy.
--- NOTE | 2016-12-06 17:06 | DS ---
DATE OF ADMISSION: 12/03/2016 DATE OF DISCHARGE: 12/04/2016 ADDENDUM: ATTENDING NOTE: This patient was seen and examined by me on 12/04/2016. Admitted with again high blood pressure, nausea, vomiting, did well on dialysis, tolerating a diet. Again did well on oral pain medication. Initially wanted IV pain medications. On examination, lungs are clear. CARDIOVASCULAR: First and second sounds normal. ABDOMEN: Soft, nontender. The reset of the note as dictated by my nurse practitioner.
== END 2016-12-04 17:25 | disposition home or self-care (01) ==
LOC: EC 09:32 → INTOOBSV 13:10 → 6SEL 13:10 → 6ICU 15:28 → 6SEL 12-04 10:49
PROVIDERS: ADMIT Hospitalist; ATTEND Hospitalist
DX: I12.0 Hypertensive chronic kidney disease with stage 5 chronic kidney disease or end stage renal disease (principal); N18.6 End stage renal disease; E10.22 Type 1 diabetes mellitus with diabetic chronic kidney disease; K31.84 Gastroparesis; K21.0 Gastro-esophageal reflux disease with esophagitis; E10.649 Type 1 diabetes mellitus with hypoglycemia without coma; E66.9 Obesity, unspecified; D63.8 Anemia in other chronic diseases classified elsewhere; F32.9 Major depressive disorder, single episode, unspecified; M54.9 Dorsalgia, unspecified; E10.43 Type 1 diabetes mellitus with diabetic autonomic (poly)neuropathy; E10.42 Type 1 diabetes mellitus with diabetic polyneuropathy; J45.909 Unspecified asthma, uncomplicated; M19.90 Unspecified osteoarthritis, unspecified site; K44.9 Diaphragmatic hernia without obstruction or gangrene; G43.909 Migraine, unspecified, not intractable, without status migrainosus; F41.9 Anxiety disorder, unspecified; F90.9 Attention-deficit hyperactivity disorder, unspecified type; F12.90 Cannabis use, unspecified, uncomplicated; E86.0 Dehydration; F45.8 Other somatoform disorders; Z76.5 Malingerer [conscious simulation]; Z79.4 Long term (current) use of insulin; Z79.899 Other long term (current) drug therapy; Z87.891 Personal history of nicotine dependence; Z91.14 Patient's other noncompliance with medication regimen; Z91.19 Patient's noncompliance with other medical treatment and regimen; Z99.2 Dependence on renal dialysis; Z86.14 Personal history of Methicillin resistant Staphylococcus aureus infection; Z68.39 Body mass index [BMI] 39.0-39.9, adult
CPT/HCPCS: 96376; 96361; 96374; 96375; 99285; 36415; 80053 ×2; 82150; 83036; 82009; 83690; 83735; 84100; 85025 ×2; 81001; G0378 ×2; J1644; J2060; J0360; J1200; J2765; S0106 ×2; J2405 ×2; J1650; J1170; 90935

== ENCOUNTER 2016-12-07 11:05 | Observation (INO) | payer OTHER ==
[2016-12-07 11:35] LABS: Glucose,Whole Blood 154 mg/dL (75-99)
[2016-12-07] MEDS ORDERED: ONDANSETRON 4 MG/2 ML VIAL IVP STA ×2 (11:36→14:09)
[2016-12-07] MEDS ORDERED: HYDROmorphone 1 MG/ML 1 ML SYRINGE IVP STA ×2 (11:36→16:06)
[2016-12-07] MEDS ORDERED: SODIUM CHLORIDE 0.9% 1,000 ML IV STA ×4 (11:36→14:09)
--- NOTE | 2016-12-07 11:47 | ED ---
Nausea/Vomiting/Diarrhea HPI - General Chief complaint: Nausea/Vomiting/Diarrhea Stated complaint: N & V pic line plugged Time Seen by Provider: 12/07/16 11:28 Source: patient Mode of arrival: ambulatory Limitations: no limitations - History of Present Illness Initial comments: This 26-year-old -[place] male presents with a complaint of nausea vomiting and abdominal pain. He states that it started last evening. He apparently was here to get his PICC line changed and they sent him to the ER for further evaluation. He states that the abdominal pain is diffuse throughout his abdomen. He denies any fevers or chills. No diarrhea or constipation. He is here quite regularly for similar symptoms and does have a history of diabetes mellitus, renal failure, gastroparesis, and cyclic vomiting syndrome. He rates his symptoms is fairly severe. He was just admitted to the hospital approximately 4 days ago for similar. No other complaints or modifying factors. He apparently did miss his dialysis today due to his symptomatology. He has the PICC line in place due to poor IV access due to so many hospitalizations. This is nonfunctional currently. - Related Data Home Medications Medication Instructions Recorded Confirmed Insulin Glargine [Lantus] 18 unit SQ HS 06/06/15 12/07/16 buPROPion SR [Wellbutrin SR] 150 mg PO BID 06/18/15 12/07/16 amLODIPine [Norvasc] 5 mg PO DAILY 05/04/16 12/07/16 INSULIN LISPRO (HumaLOG) [humaLOG] 4 units SQ AC-TID 10/16/16 12/07/16 Lisinopril [Zestril] 20 mg PO BID 10/16/16 12/07/16 Metoclopramide HCl [Reglan] 5 mg PO TID 10/16/16 12/07/16 Ranitidine HCl [Zantac] 150 mg PO HS 10/16/16 12/07/16 Potassium Chloride ER [K-Dur 20] 20 meq PO DAILY 10/20/16 12/07/16 Ergocalciferol (Vitamin D2) 50,000 unit PO MO 10/26/16 12/07/16 [Vitamin D2] Docusate [Colace] 100 mg PO BID 12/07/16 12/07/16 Previous Rx's Medication Instructions Recorded Metoprolol Tartrate [Lopressor] 100 mg PO BID #60 tab 07/16/15 Ondansetron Odt [Zofran ODT] 4 mg PO Q8HR PRN #15 tab 08/03/16 HYDROcodone/APAP 7.5-325MG [[place] 1 tab PO Q4H PRN #30 tab 10/28/16 7.5-325] Calcium Acetate [PhosLo] 667 mg PO TID-W/MEALS #90 cap 11/21/16 Allergies Allergy/AdvReac Type Severity Reaction Status Date / Time No Known Allergies Allergy Verified 12/07/16 11:42 Review of Systems ROS Statement: Those systems with pertinent positive or pertinent negative responses have been documented in the HPI. ROS Other: All systems not noted in ROS Statement are negative. Past Medical History Past Medical History: Asthma, Diabetes Mellitus, GERD/Reflux, Hypertension, Osteoarthritis (OA), Renal Disease Additional Past Medical History / Comment(s): IDDM type I, GASTROPARESIS, gastritis, esophagitis,cyclic vomiting syndrome, DKA episodes, hiatal hernia, as child had seizure r/t high fever, pancreatits(idiopathic), chronic kidney disease stage III-hemodialysis //Saturday-last hemo done 11/22/16, L leg neuropathy, migraines. History of Any Multi-Drug Resistant Organisms: MRSA Date of last positivie culture/infection: MDRO Source:: CHIN/ Rt leg Past Surgical History: Cholecystectomy, Orthopedic Surgery, Tonsillectomy Additional Past Surgical History / Comment(s): R upper chest hemodialysis catheter, PICC line, LEFT ELBOW pinned, egd's w/ bx's last done 05-30-16. Past Anesthesia/Blood Transfusion Reactions: No Reported Reaction Past Psychological History: ADD/ADHD, Anxiety, Depression Additional Psychological History / Comment(s): Pt resides with his mother. He is independent. Smoking Status: Former smoker Past Alcohol Use History: None Reported Additional Past Alcohol Use History / Comment(s): Pt states he started smoking in 2006 and quit in 2011 Past Drug Use History: None Reported Additional Drug Use History / Comment(s): pt states smokes marijuana a couple times per month - Past Family History Mother Family Medical History: Diabetes Mellitus Additional Family Medical History / Comment(s): heart problems-(pt not sure what they were) Father Family Medical History: Diabetes Mellitus General Exam - General Exam Comments Initial Comments: GENERAL: The patient is well nourished and well hydrated. VITAL SIGNS: Heart rate, blood pressure, respiratory rate reviewed as recorded in nurse's notes. EYES: Pupils are round and reactive. Extraocular movements are intact. No conjunctival / lid redness or swelling. ENT: No external evidence of injury, swelling, or ecchymosis. Airway is patent. Throat is clear. NECK: Nontender. No swelling or evidence of injury. No subcutaneous emphysema. Trachea is midline. No thyroid mass. HEART: Regular rate and rhythm. Good peripheral pulses. LUNGS/CHEST: Breath sounds clear and equal bilaterally. No rales, rhonchi, or wheezes. No ecchymosis, subcutaneous emphysema, or tenderness. ABDOMEN: There is mild diffuse tenderness to the abdomen. No palpable masses or organomegaly. No peritoneal signs. No abdominal wall swelling or ecchymosis. EXTREMITIES: No extremity tenderness. Normal muscle tone and function. No thoracolumbar tenderness. He has a PICC line in place to the right arm. NEUROLOGIC: Sensation is grossly intact. Cranial nerve exam reveals face is symmetrical, tongue is midline, speech is clear. SKIN: No abrasions or ecchymosis is noted. No induration or masses noted. PSYCHIATRIC: Alert and oriented. Appropriate behavior and judgment. Limitations: no limitations Course Vital Signs 12/07/16 12/07/16 12/07/16 11:08 13:12 15:09 Temperature 98.6 F 99.2 F 98.9 F Pulse Rate 104 H 97 86 Respiratory 18 16 16 Rate Blood Pressure 197/103 191/100 160/92 O2 Sat by Pulse 100 98 97 Oximetry 12/07/16 12/07/16 16:10 16:45 Temperature 98.2 F Pulse Rate 98 86 Respiratory 18 16 Rate Blood Pressure 161/91 164/98 O2 Sat by Pulse 99 98 Oximetry Medical Decision Making - Medical Decision Making The patient was seen and examined. All diagnostics were reviewed. An IV is established and he is hydrated. He initially receives 25 of Phenergan IM as well as 1 mg of Dilaudid IM. He was sent for the PICC line exchange. This occurred and then he presents back to the ER and receives IV fluid hydration. He receives some additional Dilaudid as he is continually complaining of abdominal pain. Old records are reviewed. The patient had an acute abdominal series x-ray which did not show any acute processes. Laboratory is reviewed. The creatinine is significantly elevated which is consistent with him missing his dialysis today. His blood sugar is mildly elevated. He states that he would need to be admitted to the hospital when his symptoms get this bad. The case is discussed with internal medicine and they're agreeable to admission. Dr. Clancy does recommend a soft diet, to chart episodes of nausea and vomiting , and to avoid intravenous Dilaudid and have nephrology consult. - Lab Data Result diagrams: 12/07/16 14:50 12/07/16 14:50 Lab Results 12/07/16 12/07/16 12/07/16 Range/Units 11:32 14:50 14:50 WBC 5.6 (3.8-10.6) k/uL RBC 2.69 L (4.30-5.90) m/uL Hgb 7.5 L (13.0-17.5) gm/dL Hct 24.5 L (39.0-53.0) % MCV 91.2 (80.0-100.0) fL MCH 28.1 (25.0-35.0) pg MCHC 30.8 L (31.0-37.0) g/dL RDW 15.9 H (11.5-15.5) % Plt Count 269 (150-450) k/uL Neutrophils % 70 % Lymphocytes % 19 % Monocytes % 6 % Eosinophils % 2 % Basophils % 0 % Neutrophils # 3.9 (1.3-7.7) k/uL Lymphocytes # 1.1 (1.0-4.8) k/uL Monocytes # 0.3 (0-1.0) k/uL Eosinophils # 0.1 (0-0.7) k/uL Basophils # 0.0 (0-0.2) k/uL Hypochromasia Slight Sodium 142 (137-145) mmol/L Potassium 4.5 (3.5-5.1) mmol/L Chloride 106 (98-107) mmol/L Carbon Dioxide 26 (22-30) mmol/L Anion Gap 10 mmol/L BUN 41 H (9-20) mg/dL Creatinine 11.29 H* (0.66-1.25) mg/dL Est GFR (MDRD) Af Amer 7 (>60 ml/min/1.73 sqM) Est GFR (MDRD) Non-Af 6 (>60 ml/min/1.73 sqM) Glucose 146 H (74-99) mg/dL POC Glucose (mg/dL) 154 H (75-99) mg/dL POC Glu Chain Carrier ID Chrissy Millard Calcium 8.2 L (8.4-10.2) mg/dL Total Bilirubin 0.5 (0.2-1.3) mg/dL AST 17 (17-59) U/L ALT 22 (21-72) U/L Alkaline Phosphatase 98 (38-126) U/L Total Protein 5.6 L (6.3-8.2) g/dL Albumin 2.6 L (3.5-5.0) g/dL Amylase 54 (30-110) U/L Lipase 28 (23-300) U/L Acetone, Qual Negative (Negative) Disposition Clinical Impression: Intractable abdominal pain, Intractable nausea and vomiting, Chronic renal failure, Hypertension, Anemia Disposition: ADMITTED IP TO THIS [facility] Condition: Fair Referrals: Myron Bailey DO [Primary Care Provider] - 1-2 days Time of Disposition: 17:23 Decision Date: 12/07/16 Decision Time: 17:23
[2016-12-07] MEDS ORDERED: HYDROmorphone 1 MG/ML 1 ML SYRINGE IM STA (12:31)
[2016-12-07] MEDS ORDERED: cloNIDine HCL 0.1 MG TAB PO STA (12:31)
[2016-12-07] MEDS ORDERED: PROMETHAZINE INJ 25 MG/ML 1 ML VIAL IM STA (12:32)
--- NOTE | 2016-12-07 12:45 | XR ---
EXAMINATION TYPE: XR abdomen acute w cxr DATE OF EXAM: 12/07/2016 CLINICAL HISTORY: Abdominal pain per order. Nausea and vomiting. TECHNIQUE: Single frontal view of chest is obtained. Supine and upright views of the abdomen are acq uired. COMPARISON: Chest x-ray November 26, 2016. Abdominal two-view x-ray November 26, 2016. FINDINGS: There is stable right internal jugular dual-lumen dialysis catheter. The lungs are grossly clear without pleural effusion or pneumothorax. Cardiac silhouette size remains enlarged. Osseous s tructures are intact. Gas is noted in nondistended stomach and small bowel loops. Gas and fecal material is seen in nondis tended colon. Cholecystectomy clips are present. No pneumoperitoneum is seen. Osseous structures are intact. IMPRESSION: 1. Cardiomegaly without acute pulmonary process. 2. Overall nonspecific but strongly favor nonobstructive bowel gas pattern. No significant change from prior studies.
[2016-12-07] MEDS ORDERED: LIDOCAINE 2% INJ 20 MG/ML (20 ML MDV) ONE (13:34)
[2016-12-07 15:21] LABS: Basophils % (A) 0 %; CH 28.1; Eosinophils # (A) 0.1 k/uL (0-0.7); Eosinophils % (A) 2 %; HCT 24.5 % (39.0-53.0); HDW 2.39; HGB 7.5 gm/dL (13.0-17.5); Hypochromasia Slight; Luc # (Auto) 0.17; Luc % (Auto) 3; Lymphocytes # (A) 1.1 k/uL (1.0-4.8); Lymphocytes % (A) 19 %; MCH 28.1 pg (25.0-35.0); MCHC 30.8 g/dL (31.0-37.0); MCV 91.2 fL (80.0-100.0); Mean Platelet Volume 7.2; Monocytes # (A) 0.3 k/uL (0-1.0); Monocytes % (A) 6 %; Neutrophils # (A) 3.9 k/uL (1.3-7.7); Neutrophils % (A) 70 %; RBC 2.69 m/uL (4.30-5.90); RDW 15.9 % (11.5-15.5); WBC 5.6 k/uL (3.8-10.6); WBC (Perox) 5.48
[2016-12-07 15:32] LABS: ALT 22 U/L (21-72); AST 17 U/L (17-59); Alkaline Phosphatase 98 U/L (38-126); Amylase 54 U/L (30-110); Anion Gap 10 mmol/L; Blood Urea Nitrogen 41 mg/dL (9-20); Calcium 8.2 mg/dL (8.4-10.2); Carbon Dioxide 26 mmol/L (22-30); Chloride 106 mmol/L (98-107); Glucose 146 mg/dL (74-99); Potassium 4.5 mmol/L (3.5-5.1); Sodium 142 mmol/L (137-145); Total Bilirubin 0.5 mg/dL (0.2-1.3); Total Protein 5.6 g/dL (6.3-8.2)
[2016-12-07 15:45] LABS: Non-African American GFR(MDRD) 6 (>60 ml/min/1.73 sqM)
[2016-12-07] MEDS ORDERED: ACETAMINOPHEN TAB 325 MG TAB PO PRN (17:24)
[2016-12-07] MEDS ORDERED: NALOXONE 0.4 MG/ML 1 ML VIAL IV PRN (17:24)
[2016-12-07] MEDS ORDERED: ONDANSETRON 4 MG/2 ML VIAL IVP PRN (17:24)
[2016-12-07] MEDS ORDERED: HYDROcodone/APAP 5-325MG 1 EACH TAB PO PRN (17:24)
[2016-12-07] MEDS ORDERED: METOCLOPRAMIDE 5 MG/ML 2 ML VIAL IVP PRN (17:27)
[2016-12-07] MEDS ORDERED: hydrALAZINE HCL 20 MG/ML 1 ML VIAL IVP PRN (17:29)
[2016-12-07] MEDS: oxyCODONE-APAP 5-325MG 1 EACH TAB PO PRN (20:11)
[2016-12-07] MEDS: CALCIUM ACETATE 667 MG CAP PO SCH (20:17)
[2016-12-07 21:06] LABS: Glucose,Whole Blood 105 mg/dL (75-99)
[2016-12-07] MEDS: LISINOPRIL 20 MG TAB PO SCH (22:03)
[2016-12-07] MEDS: METOPROLOL TARTRATE 50 MG TAB PO SCH (22:03)
[2016-12-07] MEDS: INSULIN LISPRO (humaLOG) 300 UNIT/3 ML VIAL SQ SCH (22:03)
[2016-12-07] MEDS: DOCUSATE 100 MG CAP PO SCH (22:03)
[2016-12-07] MEDS: buPROPion SR 150 MG TABLET.ER PO SCH (22:03)
[2016-12-07] MEDS: INSULIN GLARGINE 100 UNIT/ML 10 ML VIAL SQ SCH (22:06)
[2016-12-08] MEDS: oxyCODONE-APAP 5-325MG 1 EACH TAB PO PRN ×5 (03:04→20:26)
[2016-12-08 07:17] LABS: Glucose,Whole Blood 100 mg/dL (75-99)
[2016-12-08] MEDS: CALCIUM ACETATE 667 MG CAP PO SCH ×3 (08:23→17:18)
[2016-12-08] MEDS: DOCUSATE 100 MG CAP PO SCH ×2 (08:23→21:48)
[2016-12-08] MEDS: POTASSIUM CHLORIDE ER 20 MEQ TAB.ER PO SCH (08:23)
[2016-12-08] MEDS: amLODIPine 5 MG TAB PO SCH (08:23)
[2016-12-08] MEDS: METOPROLOL TARTRATE 50 MG TAB PO SCH ×2 (08:23→21:48)
[2016-12-08] MEDS: LISINOPRIL 20 MG TAB PO SCH ×2 (08:24→21:48)
[2016-12-08] MEDS: buPROPion SR 150 MG TABLET.ER PO SCH ×2 (08:24→21:48)
[2016-12-08] MEDS: INSULIN LISPRO (humaLOG) 300 UNIT/3 ML VIAL SQ SCH ×3 (08:24→17:17)
[2016-12-08] MEDS: ENOXAPARIN 40 MG/0.4 ML SYRINGE SQ SCH (08:25)
[2016-12-08] MEDS: PANTOPRAZOLE 40 MG/10 ML VIAL IV SCH (08:36)
[2016-12-08 09:42] LABS: Basophils % (A) 1 %; CH 28.1; Eosinophils # (A) 0.2 k/uL (0-0.7); Eosinophils % (A) 2 %; HDW 2.48; HGB 7.7 gm/dL (13.0-17.5); Hypochromasia Slight; Luc # (Auto) 0.16; Luc % (Auto) 3; Lymphocytes # (A) 1.6 k/uL (1.0-4.8); Lymphocytes % (A) 24 %; MCH 28.2 pg (25.0-35.0); MCHC 30.9 g/dL (31.0-37.0); MCV 91.4 fL (80.0-100.0); Mean Platelet Volume 6.9; Monocytes # (A) 0.4 k/uL (0-1.0); Monocytes % (A) 5 %; Neutrophils # (A) 4.2 k/uL (1.3-7.7); Neutrophils % (A) 65 %; RBC 2.74 m/uL (4.30-5.90); RDW 15.7 % (11.5-15.5); WBC 6.5 k/uL (3.8-10.6); WBC (Perox) 6.69
[2016-12-08 10:04] LABS: Calcium 8.1 mg/dL (8.4-10.2); Potassium 4.7 mmol/L (3.5-5.1)
[2016-12-08 11:34] LABS: Glucose,Whole Blood 81 mg/dL (75-99)
[2016-12-08 12:00] VITALS: BMI 39.6
[2016-12-08 16:48] LABS: Glucose,Whole Blood 130 mg/dL (75-99)
--- NOTE | 2016-12-08 19:07 | HP ---
DATE OF ADMISSION: 12/07/2016 HISTORY AND PHYSICAL EXAMINATION/DISCHARGE SUMMARY: PRESENTING COMPLAINT: Nausea, vomiting, abdominal pain. HISTORY OF PRESENTING COMPLAINT: This is a 26 -year-old patient of Dr. Bailey with multiple hospital presentation. Chronic stable medical conditions include esophagitis, chronic kidney disease on hemodialysis, depression, hypertension, and some autonomic dysfunction. The patient came in to get a PICC line placed. Patient's blood pressure started to go up, having some nausea. Hence, the patient was admitted and sent down to the ER after the patient's PICC line was placed. Denies fever patient did tolerate a small amount of diet initially. REVIEW OF SYSTEMS: CONSTITUTIONAL: None. HEENT: None. RESPIRATORY: None. CARDIOVASCULAR: None. GASTROINTESTINAL: As above. MUSCULOSKELETAL: Occasional low back pain. Dermatological: None. HEMATOLOGIC: None. LYMPHATICS: None. PSYCHIATRY: None. NEUROLOGICAL: None. PAST HISTORY: Diabetes type 2, GERD, hypertension, gastroparesis, esophagitis, chronic kidney disease on hemodialysis. PAST SURGICAL HISTORY: Tonsillectomy, cholecystectomy, right upper chest hemodialysis catheter, left elbow pinning. SOCIAL HISTORY: Lives with his mother. Patient smoked from 2006 to 2011. Does medical marijuana occasionally. HOME MEDICATIONS: 1. Lantus 18 units subcu q.h.s. 2. Wellbutrin SR 150 mg p.o. b.i.d. 3. ( ) 100 mg b.i.d. 4. Norvasc 5 mg a day. 5. Zofran 4 mg p.o. q.8 p.r.n. 6. Humalog 4 units subcu t.i.d. 7. Zestril 20 mg p.o. b.i.d. 8. ( ) 5 mg p.o. t.i.d. 9. Zantac 150 mg p.o. q.h.s. 10. Potassium 20 meq p.o. daily. 11. Vitamin D2 50,000 units on Saturday. 12. [place] 7.5 q.4 p.r.n. 13. PhosLo 1 tablet p.o. t.i.d. ALLERGIES: None. On examination, temperature 98.6, pulse 97, respirations 16, blood pressure 191/100, pulse ox 98% on room air. GENERAL APPEARANCE: Lying in bed, comfortable. EYES: Pupils equal. Conjunctivae normal. HEENT: External appearance of nose and ears appear normal. NECK: JVD not raised. Mass not palpable. RESPIRATORY: Effort normal. LUNGS: Fair air entry. CARDIOVASCULAR: First and second sounds normal. No edema. ABDOMEN: Soft, nontender. Liver and spleen not palpable. LYMPHATIC: No lymph nodes palpable in neck or axillae. PSYCHIATRY: Alert and oriented times three. Mood and affect normal. NEUROLOGICAL: Pupils equal. Cranial nerves gross grossly intact. Power and sensation grossly intact. INVESTIGATIONS: White count 5.6, hemoglobin 7.5. Potassium 4.5. BUN 41, creatinine 1.29. ASSESSMENT: 1. Accelerated hypertension, probably from autonomic dysfunction in a diabetic. 2. End-stage kidney disease on hemodialysis. 3. Gastroparesis secondary to underlying diabetes mellitus type 2. 4. Gastroesophageal reflux disease. 5. Chronic esophagitis. 6. Autonomic dysfunction. 7. Obesity, body mass index greater than 39. 8. Chronic abdominal pain. Patient has had ( ) in the past and has been negative. PLAN: Patient this morning, started to eating ( ) did do better. Patient is due for hemodialysis today. I saw the patient today. He said he wants to go home. He actually wants to not ( ) dialysis. I did reinforce that even though he is feeling better, he should get his scheduled dialysis. ( ) blood pressure actually has come down and current blood pressure is 160/107. The patient will get hemodialyzed today and then can be discharged home. Care was discussed with the patient. DISCHARGE MEDICATIONS: 1. Lantus 18 units subcu q.h.s. 2. Wellbutrin SR 150 mg p.o. b.i.d. 3. Norvasc 5 mg p.o. daily. 4. Zofran 4 mg p.o. q.8 p.r.n. 5. Humalog 4 units subcu a.c. t.i.d. 6. Zestril 20 mg p.o. b.i.d. 7. Reglan 5 mg p.o. t.i.d. 8. Zantac 150 mg p.o. q.h.s. 9. Potassium 20 meq p.o. daily. 10. Vitamin D 50,000 units p.o. Saturday. 11. PhosLo 1 tablet p.o. t.i.d. with meals. 12. Colace 100 mg p.o. b.i.d. 13. Percocet. The patient will use his pain medications as before. Follow up with Dr. Bailey in 2 days. Patient to follow up with and continue with hemodialysis as scheduled.
[2016-12-08 19:53] LABS: Basophils % (A) 1 %; CH 28.2; CHCM 31.1; Eosinophils # (A) 0.2 k/uL (0-0.7); Eosinophils % (A) 3 %; HCT 24.9 % (39.0-53.0); HDW 2.53; HGB 7.8 gm/dL (13.0-17.5); Hypochromasia Slight; Luc # (Auto) 0.13; Luc % (Auto) 3; Lymphocytes # (A) 1.8 k/uL (1.0-4.8); Lymphocytes % (A) 35 %; MCH 28.5 pg (25.0-35.0); MCHC 31.3 g/dL (31.0-37.0); MCV 91.2 fL (80.0-100.0); Mean Platelet Volume 6.8; Monocytes # (A) 0.3 k/uL (0-1.0); Monocytes % (A) 5 %; Neutrophils # (A) 2.7 k/uL (1.3-7.7); Neutrophils % (A) 53 %; RBC 2.73 m/uL (4.30-5.90); RDW 15.8 % (11.5-15.5); WBC 5.1 k/uL (3.8-10.6); WBC (Perox) 5.41
[2016-12-08 20:04] LABS: Calcium 8.1 mg/dL (8.4-10.2); Potassium 4.4 mmol/L (3.5-5.1)
--- NOTE | 2016-12-08 20:26 | P.NPCON ---
History of Present Illness - Reason for Consult Consult date: 12/08/16 - Chief Complaint Nausea/Vomiting - History of Present Illness I saw and examined patient for ESRD management. He came in yesterday for PICC line change and complained about N/V and abdominal pain and was sent to ER. Nephrology consultation asked for ESRD. He is usually MWF. He cant tell me hen he was last HD. Its seems since his recent DC he never went back to his outpatient HD. I am not sure why PICC line placed as no need for chcf antibiotics. Very high r/o infection and developing central stenosis with chronic PICC line Especially with his pain medication seeking behavior as documented on previous notes. At present laying flat with no acute distress. No further episode of vomiting. Review of Systems Constitutional symptoms: No fever, chills. ROS negative. Pertinent findings as per TUNUNAK. Past Medical History Past Medical History: Asthma, Diabetes Mellitus, GERD/Reflux, Hypertension, Osteoarthritis (OA), Renal Disease Additional Past Medical History / Comment(s): IDDM type I, GASTROPARESIS, gastritis, esophagitis,cyclic vomiting syndrome, DKA episodes, hiatal hernia, as child had seizure r/t high fever, pancreatits(idiopathic), chronic kidney disease stage III-hemodialysis //Saturday, L leg neuropathy, migraines. History of Any Multi-Drug Resistant Organisms: MRSA Date of last positivie culture/infection: MDRO Source:: CHIN/ Rt leg Past Surgical History: Cholecystectomy, Orthopedic Surgery, Tonsillectomy Additional Past Surgical History / Comment(s): R upper chest hemodialysis catheter, PICC line, LEFT ELBOW pinned, egd's w/ bx's last done 05-30-16.12-07-16 picc line exchange. Past Anesthesia/Blood Transfusion Reactions: No Reported Reaction Past Psychological History: ADD/ADHD, Anxiety, Depression Additional Psychological History / Comment(s): Pt resides with his mother. no home care services recieved. has a glucometer and a bp machine, walker and w/c if ever needed.not currently using-pt is independant. Smoking Status: Former smoker Past Alcohol Use History: None Reported Additional Past Alcohol Use History / Comment(s): Pt states he started smoking in 2006 and quit3 months ago Past Drug Use History: None Reported Additional Drug Use History / Comment(s): pt states smokes marijuana a couple times per month-last used 8 days ago 11-29-16 - Past Family History Mother Family Medical History: Diabetes Mellitus Additional Family Medical History / Comment(s): heart problems-(pt not sure what they were) Father Family Medical History: Diabetes Mellitus Medications and Allergies Home Medications Medication Instructions Recorded Confirmed Type Insulin Glargine [Lantus] 18 unit SQ HS 06/06/15 12/07/16 History buPROPion SR [Wellbutrin SR] 150 mg PO BID 06/18/15 12/07/16 History amLODIPine [Norvasc] 5 mg PO DAILY 05/04/16 12/07/16 History INSULIN LISPRO (HumaLOG) [humaLOG] 4 units SQ AC-TID 10/16/16 12/07/16 History Lisinopril [Zestril] 20 mg PO BID 10/16/16 12/07/16 History Metoclopramide HCl [Reglan] 5 mg PO TID 10/16/16 12/07/16 History Ranitidine HCl [Zantac] 150 mg PO HS 10/16/16 12/07/16 History Potassium Chloride ER [K-Dur 20] 20 meq PO DAILY 10/20/16 12/07/16 History Ergocalciferol (Vitamin D2) 50,000 unit PO MO 10/26/16 12/07/16 History [Vitamin D2] Docusate [Colace] 100 mg PO BID 12/07/16 12/07/16 History Allergies Allergy/AdvReac Type Severity Reaction Status Date / Time No Known Allergies Allergy Verified 12/07/16 11:42 Physical Exam Vitals: Vital Signs Temp Pulse Resp BP Pulse Ox 12/08/16 14:36 97.8 F 82 16 145/85 97 12/08/16 07:00 97.3 F L 81 16 163/107 94 L 12/07/16 23:00 96.7 F L 94 19 137/88 98 Intake and Output 12/08/16 12/08/16 12/08/16 06:59 14:59 22:59 Other: Voiding Method Toilet Toilet # Voids 0 1 Weight 115 kg Patient Weight 12/09/16 06:59 Weight 115 kg - Constitutional General appearance: morbidly obese - EENT Eyes: PERRLA - Respiratory Respiratory: bilateral: diminished (at bases) - Cardiovascular Rhythm: regular Heart sounds: normal: S1, S2 - Gastrointestinal General gastrointestinal: normal bowel sounds, soft Results - Lab Results Most recent lab results Calcium 8.1 mg/dL (8.4-10.2) L 12/08/16 19:00 12/08/16 19:00 12/08/16 19:00 Assessment and Plan Plan: IMPRESSION: 1.ESRD secondary DM: On HD via perma cath 2.Non Compliance 3.Anemia seconadary to #1 adn #2 dues to missed aranesp doses. R/O iron defeciency 4.Abdominal pain likley from gastroparesis 5.Drug seeking behaviour PLAN: 1.HD today 2.Recommned to reevaluate need for PICC line. Would avoid it given drug seeking behavior and high r/o central stenosis and line infection. 3.Nephrology stand point can be DC anytime. Encouraged to be compliant with his outpatient HD. 4.Aranesp if iron studies WNL 5.Start phosphorus binders if tolerating PO and nephrocap
[2016-12-08 21:38] LABS: Glucose,Whole Blood 128 mg/dL (75-99)
[2016-12-08] MEDS ORDERED: HEPARIN SODIUM,PORCINE 5,000 UNIT/ML 1 ML VIAL ONE (21:45)
[2016-12-08] MEDS: INSULIN GLARGINE 100 UNIT/ML 10 ML VIAL SQ SCH (22:25)
[2016-12-09] MEDS: oxyCODONE-APAP 5-325MG 1 EACH TAB PO PRN ×3 (00:35→11:37)
[2016-12-09 07:08] LABS: Glucose,Whole Blood 121 mg/dL (75-99)
[2016-12-09 07:16] VITALS: BP 165/106; PULSE 85; RESP 14; TEMP 97.5
[2016-12-09] MEDS: INSULIN LISPRO (humaLOG) 300 UNIT/3 ML VIAL SQ SCH (07:50)
[2016-12-09] MEDS: ENOXAPARIN 40 MG/0.4 ML SYRINGE SQ SCH (07:57)
[2016-12-09] MEDS: DOCUSATE 100 MG CAP PO SCH (07:57)
[2016-12-09] MEDS: METOPROLOL TARTRATE 50 MG TAB PO SCH (07:58)
[2016-12-09] MEDS: PANTOPRAZOLE 40 MG/10 ML VIAL IV SCH (07:58)
[2016-12-09] MEDS: CALCIUM ACETATE 667 MG CAP PO SCH ×2 (07:58→11:37)
[2016-12-09] MEDS: amLODIPine 5 MG TAB PO SCH (07:58)
[2016-12-09] MEDS: LISINOPRIL 20 MG TAB PO SCH (07:58)
[2016-12-09] MEDS: buPROPion SR 150 MG TABLET.ER PO SCH (07:59)
[2016-12-09] MEDS: POTASSIUM CHLORIDE ER 20 MEQ TAB.ER PO SCH (07:59)
[2016-12-09 08:20] LABS: Basophils % (A) 1 %; CH 28.2; CHCM 30.2; Eosinophils # (A) 0.1 k/uL (0-0.7); Eosinophils % (A) 3 %; HCT 24.1 % (39.0-53.0); HDW 2.36; HGB 7.2 gm/dL (13.0-17.5); Hypochromasia Moderate; Luc # (Auto) 0.14; Luc % (Auto) 3; Lymphocytes # (A) 1.7 k/uL (1.0-4.8); Lymphocytes % (A) 37 %; MCHC 29.9 g/dL (31.0-37.0); MCV 93.8 fL (80.0-100.0); Mean Platelet Volume 6.9; Monocytes # (A) 0.5 k/uL (0-1.0); Monocytes % (A) 10 %; Neutrophils # (A) 2.2 k/uL (1.3-7.7); Neutrophils % (A) 47 %; RBC 2.57 m/uL (4.30-5.90); RDW 15.9 % (11.5-15.5); WBC 4.6 k/uL (3.8-10.6); WBC (Perox) 4.63
[2016-12-09 08:44] LABS: Calcium 7.8 mg/dL (8.4-10.2)
[2016-12-09 11:29] LABS: Glucose,Whole Blood 137 mg/dL (75-99)
[2016-12-10] MEDS ORDERED: ERGOCALCIFEROL 50,000 UNIT CAP PO SCH (12:00)
== END 2016-12-09 13:14 | disposition home or self-care (01) ==
LOC: EC 11:05 → 4MS4W 17:24 → INTOOBSV 17:24
PROVIDERS: ADMIT Hospitalist; ATTEND Hospitalist
DX: I12.0 Hypertensive chronic kidney disease with stage 5 chronic kidney disease or end stage renal disease (principal); K31.84 Gastroparesis; N18.6 End stage renal disease; E11.22 Type 2 diabetes mellitus with diabetic chronic kidney disease; E11.43 Type 2 diabetes mellitus with diabetic autonomic (poly)neuropathy; D63.1 Anemia in chronic kidney disease; K21.0 Gastro-esophageal reflux disease with esophagitis; E66.9 Obesity, unspecified; M19.91 Primary osteoarthritis, unspecified site; G43.909 Migraine, unspecified, not intractable, without status migrainosus; K44.9 Diaphragmatic hernia without obstruction or gangrene; F32.9 Major depressive disorder, single episode, unspecified; F12.90 Cannabis use, unspecified, uncomplicated; F41.9 Anxiety disorder, unspecified; G89.29 Other chronic pain; J45.909 Unspecified asthma, uncomplicated; F90.9 Attention-deficit hyperactivity disorder, unspecified type; Z87.891 Personal history of nicotine dependence; Z68.39 Body mass index [BMI] 39.0-39.9, adult; Z86.14 Personal history of Methicillin resistant Staphylococcus aureus infection; Z90.49 Acquired absence of other specified parts of digestive tract; Z79.4 Long term (current) use of insulin; Z99.2 Dependence on renal dialysis; Z79.899 Other long term (current) drug therapy; Z76.5 Malingerer [conscious simulation]; Z91.19 Patient's noncompliance with other medical treatment and regimen; Z83.3 Family history of diabetes mellitus
CPT/HCPCS: 96361 ×2; 96372; 96374; 96375; 99285; 36415; 80053; 80048 ×2; 82150; 82009; 83690; 85025 ×3; 74022; G0378 ×3; J1644; J2550; S0106 ×3; J2405 ×2; J1650; J1170; C9113 ×2; 90935

== ENCOUNTER → 2016-12-07 | Day surgery (SDC) | payer OTHER ==
[~2016-12-07] MED LIST: LIDOCAINE 2% INJ 20 MG/ML SQ ONE
--- NOTE | 2016-12-07 15:13 | IR ---
EXAMINATION TYPE: PICC line exchange DATE OF EXAM: 12/07/2016 COMPARISON: NONE CLINICAL HISTORY: Malfunctioning PICC line Needs long-term intravenous access for therapy. PROCEDURE: After informed consent, the skin was prepped, indwelling line was prepped and lidocaine used for loca l anesthesia. The catheter was gently withdrawn under fluoroscopic observation and subsequently cut. Wire was advanced through the catheter and the catheter removed. Access site was dilated with Peel-Aw ay sheath and catheter tailored to the appropriate length and advanced such that the distal tip is at the cavoatrial junction. Spot image was obtained verifying placement. Catheter was fixed to the sk in with suture and a sterile dressing was placed following hemostasis. Catheter was aspirated and fl ushed with saline. Patient was discharged in stable condition without complication. Maximal barrier technique is utilized. Ultrasound image is documented on the chart. Ultrasound used with sterile tammy hnique. Fluoro time and fluoroscopic images submitted to document procedure: 2.5 minutes fluoroscopy time, in traoperative C-arm image documents the procedure IMPRESSION: STATUS POST ULTRASOUND AND FLUOROSCOPIC GUIDED PICC LINE exchange, READY FOR USE. THIS P ROCEDURE WAS PERFORMED BY THE UNDERSIGNED.
== END ==
LOC: CATHCVL 10:30
PROVIDERS: ATTEND Radiology Diagnostic Radiology
DX: T82.514A Breakdown (mechanical) of infusion catheter, initial encounter (principal); F12.90 Cannabis use, unspecified, uncomplicated; I10 Essential (primary) hypertension; E10.43 Type 1 diabetes mellitus with diabetic autonomic (poly)neuropathy; K31.84 Gastroparesis; E10.65 Type 1 diabetes mellitus with hyperglycemia; K59.00 Constipation, unspecified; M10.9 Gout, unspecified; F32.9 Major depressive disorder, single episode, unspecified; F41.1 Generalized anxiety disorder; K21.9 Gastro-esophageal reflux disease without esophagitis; Y71.1 Therapeutic (nonsurgical) and rehabilitative cardiovascular devices associated with adverse incidents; Z79.4 Long term (current) use of insulin; Z79.899 Other long term (current) drug therapy; Z82.49 Family history of ischemic heart disease and other diseases of the circulatory system; Z83.3 Family history of diabetes mellitus
CPT/HCPCS: 36584; 77001; C1751; C1769; J2001; 36569; 76937

== ENCOUNTER 2016-12-10 08:11 | Emergency (ER) | payer OTHER ==
[2016-12-10] MEDS ORDERED: HYDROmorphone 1 MG/ML 1 ML SYRINGE IVP STA ×2 (08:21→10:57)
[2016-12-10] MEDS ORDERED: ONDANSETRON 4 MG/2 ML VIAL IVP STA (08:21)
[2016-12-10] MEDS ORDERED: SODIUM CHLORIDE 0.9% 500 ML IV STA (08:21)
[2016-12-10] MEDS ORDERED: SODIUM CHLORIDE 0.9% 1,000 ML IV STA (08:21)
--- NOTE | 2016-12-10 08:45 | ED ---
General Adult HPI - General Chief complaint: Abdominal Pain Stated complaint: Abd Pain Time Seen by Provider: 12/10/16 08:21 Source: patient, RN notes reviewed, old records reviewed Mode of arrival: wheelchair Limitations: no limitations - History of Present Illness Initial comments: Patient 26-year-old male significant past medical history for gastroparesis, diabetes, hypertension, who presents emergency room today with chief complaint of increased abdominal pain with nausea vomiting. Patient doesn't that he was recently seen here in the emergency room and admitted and released just one day ago. He does admit that he has been having increased nausea vomiting abdominal pain That Started up Last Night. Denies Any Signs of Blood in the Emesis. He Denies Any Other Complaints or Associated Symptoms at This Time. Patient denies any recent fever, chills, shortness of breath, chest pain, back pain, dysuria or hematuria, constipation or diarrhea, headaches or visual changes, or any other complaints. - Related Data Home Medications Medication Instructions Recorded Confirmed Insulin Glargine [Lantus] 18 unit SQ HS 06/06/15 12/10/16 buPROPion SR [Wellbutrin SR] 150 mg PO BID 06/18/15 12/10/16 amLODIPine [Norvasc] 5 mg PO DAILY 05/04/16 12/10/16 INSULIN LISPRO (HumaLOG) [humaLOG] 4 units SQ AC-TID 10/16/16 12/10/16 Lisinopril [Zestril] 20 mg PO BID 10/16/16 12/10/16 Metoclopramide HCl [Reglan] 5 mg PO TID 10/16/16 12/10/16 Ranitidine HCl [Zantac] 150 mg PO HS 10/16/16 12/10/16 Potassium Chloride ER [K-Dur 20] 20 meq PO DAILY 10/20/16 12/10/16 Ergocalciferol (Vitamin D2) 50,000 unit PO MO 10/26/16 12/10/16 [Vitamin D2] Docusate [Colace] 100 mg PO BID 12/07/16 12/10/16 oxyCODONE-APAP 5-325MG [Percocet 1 tab PO Q4HR PRN 12/10/16 12/10/16 5-325 mg] Previous Rx's Medication Instructions Recorded Metoprolol Tartrate [Lopressor] 100 mg PO BID #60 tab 07/16/15 Ondansetron Odt [Zofran ODT] 4 mg PO Q8HR PRN #15 tab 08/03/16 Calcium Acetate [PhosLo] 667 mg PO TID-W/MEALS #90 cap 11/21/16 Allergies Allergy/AdvReac Type Severity Reaction Status Date / Time No Known Allergies Allergy Verified 12/10/16 08:30 Review of Systems ROS Statement: Those systems with pertinent positive or pertinent negative responses have been documented in the HPI. ROS Other: All systems not noted in ROS Statement are negative. Past Medical History Past Medical History: Asthma, Diabetes Mellitus, GERD/Reflux, Hypertension, Osteoarthritis (OA), Renal Disease Additional Past Medical History / Comment(s): IDDM type I, GASTROPARESIS, gastritis, esophagitis,cyclic vomiting syndrome, DKA episodes, hiatal hernia, as child had seizure r/t high fever, pancreatits(idiopathic), chronic kidney disease stage III-hemodialysis //Saturday, L leg neuropathy, migraines. History of Any Multi-Drug Resistant Organisms: MRSA Date of last positivie culture/infection: MDRO Source:: CHIN/ Rt leg Past Surgical History: Cholecystectomy, Orthopedic Surgery, Tonsillectomy Additional Past Surgical History / Comment(s): R upper chest hemodialysis catheter, PICC line, LEFT ELBOW pinned, egd's w/ bx's last done 05-30-16.12-07-16 picc line exchange. Past Anesthesia/Blood Transfusion Reactions: No Reported Reaction Past Psychological History: ADD/ADHD, Anxiety, Depression Additional Psychological History / Comment(s): Pt resides with his mother. no home care services recieved. has a glucometer and a bp machine, walker and w/c if ever needed.not currently using-pt is independant. Smoking Status: Former smoker Past Alcohol Use History: None Reported Additional Past Alcohol Use History / Comment(s): Pt states he started smoking in 2006 and quit3 months ago Past Drug Use History: None Reported Additional Drug Use History / Comment(s): pt states smokes marijuana a couple times per month-last used 8 days ago 11-29-16 - Past Family History Mother Family Medical History: Diabetes Mellitus Additional Family Medical History / Comment(s): heart problems-(pt not sure what they were) Father Family Medical History: Diabetes Mellitus General Exam - General Exam Comments Initial Comments: General: The patient is awake and alert, in mild distress. Eye: Pupils are equal, round and reactive to light, extra-ocular movements are intact. No nystagmus. There is normal conjunctiva bilaterally. No signs of icterus. Ears, nose, mouth and throat: There are moist mucous membranes and no oral lesions. Neck: The neck is supple, there is no tenderness or JVD. Cardiovascular: There is a regular rate and rhythm. No murmur, rub or gallop is appreciated. Respiratory: Lungs are clear to auscultation, respirations are non-labored, breath sounds are equal. No wheezes, stridor, rales, or rhonchi. Gastrointestinal: No appearance abdomen. Normal bowel sounds. Abdomen soft on palpation. He does have tenderness in epigastric mild tenderness in the lower quadrants well. No rebound tenderness. No guarding. No CVA tenderness. Musculoskeletal: Normal ROM, no tenderness. Strength 5/5. Sensation intact. Pulses equal bilaterally 2+. Neurological: A&O x 3. CN II-XII intact, There are no obvious motor or sensory deficits. Coordination appears grossly intact. Speech is normal. Skin: Skin is warm and dry and no rashes or lesions are noted. Psychiatric: Cooperative, appropriate mood & affect, normal judgment. Limitations: no limitations Course Vital Signs 12/10/16 12/10/16 08:12 08:58 Temperature 99.0 F Pulse Rate 88 95 Respiratory 20 18 Rate Blood Pressure 179/97 O2 Sat by Pulse 100 97 Oximetry Medical Decision Making - Medical Decision Making Patient reexamined at this time shows no signs of distress. Does admit that is feeling better here in emergency room. Denies any nausea vomiting. Does show blood glucose check was 61. Patient recheck his back to normal range. Patient feeling better will be discharged home. Able will hold down by mouth fluids and food here in the ER. Hemoglobin 8.3 shows similar on previous labs. Creatinine greater than 10 also showing similar to previous labs. Creatinine elevated is a dialysis patient. Advised patient that he needs follow-up have dialysis performed today or tomorrow. States understanding and is in agreement. States he can have this done. - Lab Data Result diagrams: 12/10/16 08:50 12/10/16 08:50 Lab Results 12/10/16 12/10/16 12/10/16 Range/Units 08:50 08:50 10:08 WBC 7.1 (3.8-10.6) k/uL RBC 2.96 L (4.30-5.90) m/uL Hgb 8.3 L (13.0-17.5) gm/dL Hct 26.5 L (39.0-53.0) % MCV 89.6 (80.0-100.0) fL MCH 28.1 (25.0-35.0) pg MCHC 31.4 (31.0-37.0) g/dL RDW 15.6 H (11.5-15.5) % Plt Count 350 (150-450) k/uL Neutrophils % 55 % Lymphocytes % 30 % Monocytes % 7 % Eosinophils % 2 % Basophils % 0 % Neutrophils # 4.0 (1.3-7.7) k/uL Lymphocytes # 2.2 (1.0-4.8) k/uL Monocytes # 0.5 (0-1.0) k/uL Eosinophils # 0.2 (0-0.7) k/uL Basophils # 0.0 (0-0.2) k/uL Sodium 143 (137-145) mmol/L Potassium 4.2 (3.5-5.1) mmol/L Chloride 108 H (98-107) mmol/L Carbon Dioxide 24 (22-30) mmol/L Anion Gap 11 mmol/L BUN 37 H (9-20) mg/dL Creatinine 10.47 H* (0.66-1.25) mg/dL Est GFR (MDRD) Af Amer 7 (>60 ml/min/1.73 sqM) Est GFR (MDRD) Non-Af 6 (>60 ml/min/1.73 sqM) Glucose 61 L (74-99) mg/dL POC Glucose (mg/dL) 70 L (75-99) mg/dL POC Glu Appeals Reviewer Veteran ID [place], Rosalee Calcium 8.7 (8.4-10.2) mg/dL Total Bilirubin 0.5 (0.2-1.3) mg/dL AST 19 (17-59) U/L ALT 18 L (21-72) U/L Alkaline Phosphatase 105 (38-126) U/L Total Protein 6.3 (6.3-8.2) g/dL Albumin 3.1 L (3.5-5.0) g/dL Lipase 37 (23-300) U/L Urine Color Urine Appearance (Clear) Urine pH (5.0-8.0) Ur Specific [place] (1.001-1.035) Urine Protein (Negative) Urine Glucose (UA) (Negative) Urine Ketones (Negative) Urine Blood (Negative) Urine Nitrite (Negative) Urine Bilirubin (Negative) Urine Urobilinogen (<2.0) mg/dL Ur Leukocyte Esterase (Negative) Urine RBC (0-5) /hpf Urine WBC (0-5) /hpf Ur Squamous Epith Cells (0-4) /hpf Urine Bacteria (None) /hpf Acetone, Qual Negative (Negative) 12/10/16 12/10/16 12/10/16 Range/Units 10:15 10:22 10:39 WBC (3.8-10.6) k/uL RBC (4.30-5.90) m/uL Hgb (13.0-17.5) gm/dL Hct (39.0-53.0) % MCV (80.0-100.0) fL MCH (25.0-35.0) pg MCHC (31.0-37.0) g/dL RDW (11.5-15.5) % Plt Count (150-450) k/uL Neutrophils % % Lymphocytes % % Monocytes % % Eosinophils % % Basophils % % Neutrophils # (1.3-7.7) k/uL Lymphocytes # (1.0-4.8) k/uL Monocytes # (0-1.0) k/uL Eosinophils # (0-0.7) k/uL Basophils # (0-0.2) k/uL Sodium (137-145) mmol/L Potassium (3.5-5.1) mmol/L Chloride (98-107) mmol/L Carbon Dioxide (22-30) mmol/L Anion Gap mmol/L BUN (9-20) mg/dL Creatinine (0.66-1.25) mg/dL Est GFR (MDRD) Af Amer (>60 ml/min/1.73 sqM) Est GFR (MDRD) Non-Af (>60 ml/min/1.73 sqM) Glucose (74-99) mg/dL POC Glucose (mg/dL) 68 L 79 (75-99) mg/dL POC Glu Appeals Reviewer Veteran ID Rosalee Kelly Kayla Calcium (8.4-10.2) mg/dL Total Bilirubin (0.2-1.3) mg/dL AST (17-59) U/L ALT (21-72) U/L Alkaline Phosphatase (38-126) U/L Total Protein (6.3-8.2) g/dL Albumin (3.5-5.0) g/dL Lipase (23-300) U/L Urine Color Light Yellow Urine Appearance Clear (Clear) Urine pH 8.0 (5.0-8.0) Ur Specific [place] 1.010 (1.001-1.035) Urine Protein 4+ H (Negative) Urine Glucose (UA) 1+ H (Negative) Urine Ketones Negative (Negative) Urine Blood Small H (Negative) Urine Nitrite Negative (Negative) Urine Bilirubin Negative (Negative) Urine Urobilinogen <2.0 (<2.0) mg/dL Ur Leukocyte Esterase Trace H (Negative) Urine RBC 5 (0-5) /hpf Urine WBC 27 H (0-5) /hpf Ur Squamous Epith Cells <1 (0-4) /hpf Urine Bacteria Occasional H (None) /hpf Acetone, Qual (Negative) Disposition Clinical Impression: Hypoglycemia, Chronic renal failure, Nausea & vomiting Disposition: HOME SELF-CARE Condition: Stable Instructions: Acute Nausea and Vomiting (ED) Additional Instructions: Please have dialysis performed today or tomorrow. Please follow-up family doctor over the next 2 days return here to the emergency room if any symptoms increase or worsen or for any other concerns. Referrals: Myron Bailey DO [Primary Care Provider] - 1-2 days Time of Disposition: 11:01
[2016-12-10 08:58] LABS: Basophils % (A) 0 %; CH 28.2; CHCM 31.7; Eosinophils # (A) 0.2 k/uL (0-0.7); Eosinophils % (A) 2 %; HCT 26.5 % (39.0-53.0); HDW 2.53; HGB 8.3 gm/dL (13.0-17.5); Luc # (Auto) 0.31; Luc % (Auto) 4; Lymphocytes # (A) 2.2 k/uL (1.0-4.8); Lymphocytes % (A) 30 %; MCH 28.1 pg (25.0-35.0); MCHC 31.4 g/dL (31.0-37.0); MCV 89.6 fL (80.0-100.0); Mean Platelet Volume 6.8; Monocytes # (A) 0.5 k/uL (0-1.0); Monocytes % (A) 7 %; Neutrophils % (A) 55 %; RBC 2.96 m/uL (4.30-5.90); RDW 15.6 % (11.5-15.5); WBC 7.1 k/uL (3.8-10.6); WBC (Perox) 7.43
[2016-12-10 08:59] VITALS: RESP 18
[2016-12-10 09:20] LABS: ALT 18 U/L (21-72); AST 19 U/L (17-59); Alkaline Phosphatase 105 U/L (38-126); Anion Gap 11 mmol/L; Blood Urea Nitrogen 37 mg/dL (9-20); Calcium 8.7 mg/dL (8.4-10.2); Carbon Dioxide 24 mmol/L (22-30); Chloride 108 mmol/L (98-107); Glucose 61 mg/dL (74-99); Potassium 4.2 mmol/L (3.5-5.1); Sodium 143 mmol/L (137-145); Total Bilirubin 0.5 mg/dL (0.2-1.3); Total Protein 6.3 g/dL (6.3-8.2)
[2016-12-10 09:36] LABS: Non-African American GFR(MDRD) 6 (>60 ml/min/1.73 sqM)
[2016-12-10 10:12] LABS: Glucose,Whole Blood 70 mg/dL (75-99)
[2016-12-10 10:24] LABS: Glucose,Whole Blood 68 mg/dL (75-99)
[2016-12-10 10:29] LABS: Appearance,Urine Clear (Clear); Bacteria,Urine Occasional /hpf; Bilirubin,Urine Negative (Negative); Glucose,Urine (UA) 1+ (Negative); Ketones,Urine Negative (Negative); Leukocyte Esterase,Urine Trace (Negative); Nitrite,Urine Negative (Negative); Particle Count 2045; Protein,Urine 4+ (Negative); RBC,Urine 5 /hpf (0-5); Squamous Epithelial Cell,Urine <1 /hpf (0-4); UA Billing (MACRO vs. MICRO) MICRO; Urobilinogen,Urine <2.0 mg/dL (<2.0); WBC,Urine 27 /hpf (0-5)
[2016-12-10 10:42] LABS: Glucose,Whole Blood 79 mg/dL (75-99)
[2016-12-10 11:00] LABS: Glucose,Whole Blood 95 mg/dL (75-99)
[2016-12-10 11:26] VITALS: PULSE 91
[2016-12-10] MEDS ORDERED: hydrALAZINE HCL 20 MG/ML 1 ML VIAL IVP STA (11:37)
[2016-12-10 11:58] VITALS: BP 176/98; TEMP 97.7
[2016-12-10 12:05] LABS: Glucose,Whole Blood 85 mg/dL (75-99)
== END 2016-12-10 11:53 | disposition home or self-care (01) ==
LOC: EC 08:11
DX: E10.649 Type 1 diabetes mellitus with hypoglycemia without coma (principal); I12.9 Hypertensive chronic kidney disease with stage 1 through stage 4 chronic kidney disease, or unspecified chronic kidney disease; E10.22 Type 1 diabetes mellitus with diabetic chronic kidney disease; N18.3 Chronic kidney disease, stage 3 (moderate); R10.9 Unspecified abdominal pain; R11.2 Nausea with vomiting, unspecified; K21.9 Gastro-esophageal reflux disease without esophagitis; J45.909 Unspecified asthma, uncomplicated; M19.90 Unspecified osteoarthritis, unspecified site; F41.9 Anxiety disorder, unspecified; F32.9 Major depressive disorder, single episode, unspecified; F90.9 Attention-deficit hyperactivity disorder, unspecified type; Z87.891 Personal history of nicotine dependence; Z79.4 Long term (current) use of insulin; Z79.899 Other long term (current) drug therapy; Z90.49 Acquired absence of other specified parts of digestive tract
CPT/HCPCS: 99284 ×2; 96374 ×2; 96375 ×4; 96376 ×2; 96361 ×3; 36415; 80053; 82150; 82009; 83690; 85025; 81001; J0360; J2405; J1642; J1170; C9113

== ENCOUNTER 2016-12-10 19:21 | Emergency (ER) | payer OTHER ==
[2016-12-10 19:44] VITALS: RESP 18
[2016-12-10] MEDS ORDERED: PANTOPRAZOLE 40 MG/10 ML VIAL IVP STA (20:16)
[2016-12-10] MEDS ORDERED: HYDROmorphone 1 MG/ML 1 ML SYRINGE IVP STA ×2 (20:16→21:45)
[2016-12-10] MEDS ORDERED: ONDANSETRON 4 MG/2 ML VIAL IVP STA (20:16)
[2016-12-10] MEDS ORDERED: SODIUM CHLORIDE 0.9% 1,000 ML IV STA (20:16)
--- NOTE | 2016-12-10 20:49 | ED ---
General Adult HPI - General Chief complaint: Abdominal Pain Stated complaint: abdominal pain/SOB/vomiting Time Seen by Provider: 12/10/16 19:53 Source: patient, family, RN notes reviewed, old records reviewed Mode of arrival: wheelchair Limitations: no limitations - History of Present Illness Initial comments: If complaint and history of present illness a 26-year-old male well-known emergency room for frequent cyclical vomiting syndrome. Patient has renal failure and has dialysis 3 times weekly. Unable to go to his dialysis today because of vomiting. He was here in the emergency room earlier discharged try to go to dialysis. Couldn't make it. He reports he went home been vomiting bile with abdominal pain since then. - Related Data Home Medications Medication Instructions Recorded Confirmed Insulin Glargine [Lantus] 18 unit SQ HS 06/06/15 12/10/16 buPROPion SR [Wellbutrin SR] 150 mg PO BID 06/18/15 12/10/16 amLODIPine [Norvasc] 5 mg PO DAILY 05/04/16 12/10/16 INSULIN LISPRO (HumaLOG) [humaLOG] 4 units SQ AC-TID 10/16/16 12/10/16 Lisinopril [Zestril] 20 mg PO BID 10/16/16 12/10/16 Metoclopramide HCl [Reglan] 5 mg PO TID 10/16/16 12/10/16 Ranitidine HCl [Zantac] 150 mg PO HS 10/16/16 12/10/16 Potassium Chloride ER [K-Dur 20] 20 meq PO DAILY 10/20/16 12/10/16 Ergocalciferol (Vitamin D2) 50,000 unit PO MO 10/26/16 12/10/16 [Vitamin D2] Docusate [Colace] 100 mg PO BID 12/07/16 12/10/16 oxyCODONE-APAP 5-325MG [Percocet 1 tab PO Q4HR PRN 12/10/16 12/10/16 5-325 mg] Previous Rx's Medication Instructions Recorded Metoprolol Tartrate [Lopressor] 100 mg PO BID #60 tab 07/16/15 Ondansetron Odt [Zofran ODT] 4 mg PO Q8HR PRN #15 tab 08/03/16 Calcium Acetate [PhosLo] 667 mg PO TID-W/MEALS #90 cap 11/21/16 Allergies Allergy/AdvReac Type Severity Reaction Status Date / Time No Known Allergies Allergy Verified 12/10/16 19:59 Review of Systems ROS Statement: Those systems with pertinent positive or pertinent negative responses have been documented in the HPI. View of systems no headache or chest pain or shortness of breath he has chronic epigastric pain with frequent vomiting, cyclical vomiting. Labs morning were essentially within normal limits for him. Acetone was negative. All systems reviewed past medical problems significant for asthma, insulin-dependent diabetes mellitus, GERD, hypertension, osteoarthritis, chronic renal disease on hemodialysis. Gastroparesis. Surgeries cholecystectomy, tonsillectomy, he has a right upper chest port for dialysis. Patient is a former smoker denies alcohol use. ROS Other: All systems not noted in ROS Statement are negative. Past Medical History Past Medical History: Asthma, Diabetes Mellitus, GERD/Reflux, Hypertension, Osteoarthritis (OA), Renal Disease Additional Past Medical History / Comment(s): IDDM type I, GASTROPARESIS, gastritis, esophagitis,cyclic vomiting syndrome, DKA episodes, hiatal hernia, as child had seizure r/t high fever, pancreatits(idiopathic), chronic kidney disease stage III-hemodialysis M/W/Saturday, L leg neuropathy, migraines. History of Any Multi-Drug Resistant Organisms: MRSA Date of last positivie culture/infection: MDRO Source:: CHIN/ Rt leg Past Surgical History: Cholecystectomy, Orthopedic Surgery, Tonsillectomy Additional Past Surgical History / Comment(s): R upper chest hemodialysis catheter, PICC line, LEFT ELBOW pinned, egd's w/ bx's last done 05-30-16.12-07-16 picc line exchange. Past Anesthesia/Blood Transfusion Reactions: No Reported Reaction Past Psychological History: ADD/ADHD, Anxiety, Depression Additional Psychological History / Comment(s): Pt resides with his mother. no home care services recieved. has a glucometer and a bp machine, walker and w/c if ever needed.not currently using-pt is independant. Smoking Status: Former smoker Past Alcohol Use History: None Reported Additional Past Alcohol Use History / Comment(s): Pt states he started smoking in 2006 and quit3 months ago Past Drug Use History: None Reported Additional Drug Use History / Comment(s): pt states smokes marijuana a couple times per month-last used 8 days ago 11-29-16 - Past Family History Mother Family Medical History: Diabetes Mellitus Additional Family Medical History / Comment(s): heart problems-(pt not sure what they were) Father Family Medical History: Diabetes Mellitus General Exam - General Exam Comments Initial Comments: General: The patient is awake and alert, states at home he was vomiting bile. Here he is holding his epigastric region stating he has pain vomited. Vital signs temperature 98.5 pulse 92 respiratory rate 18 pulse ox on percent room air blood pressure 182/104 Eye: Pupils are equal, round and reactive to light, extra-ocular movements are intact ; there is normal conjunctiva bilaterally. No signs of icterus. Ears, nose, mouth and throat: There are moist mucous membranes and no oral lesions. Neck: The neck is supple, there is no tenderness area Cardiovascular: There is a regular rate and rhythm. No murmur, rub or gallop is appreciated. Respiratory: Lungs are clear to auscultation, respirations are non-labored, breath sounds are equal. No wheezes, stridor, rales, or rhonchi. Gastrointestinal: Epigastric discomfort. Vomiting, cyclical. Back: There is no tenderness to palpation in the midline. There is no obvious deformity. No rashes noted. Musculoskeletal: Normal ROM, no tenderness, There is no pedal edema. There is no calf tenderness or swelling. Sensation intact. Neurological: CN II-XII intact, There are no obvious motor or sensory deficits. Coordination appears grossly intact. Speech is normal. No focal or lateralizing findings Skin: Skin is warm and dry and no rashes or lesions are noted. Multiple tattoos Limitations: no limitations Course Vital Signs 12/10/16 12/10/16 12/10/16 19:40 22:05 23:44 Temperature 98.5 F 98.4 F Pulse Rate 92 94 85 Respiratory 18 18 18 Rate Blood Pressure 182/104 192/112 160/95 O2 Sat by Pulse 100 96 97 Oximetry Medical Decision Making - Medical Decision Making Decision-making. Patient's white count 5.7 hemoglobin 7.9 hematocrit 25.9. Potassium 4.4. BUN 37 creatinine 10.36 with GFR 6. Glucose 80. Acetone negative. she was made comfortable through IV medications etc. at this time patient states he feels better can go home. Will follow-up tomorrow with his dialysis and continue with home medications. - Lab Data Result diagrams: 12/10/16 20:42 12/10/16 20:42 Lab Results 12/10/16 12/10/16 Range/Units 20:42 20:42 WBC 5.7 (3.8-10.6) k/uL RBC 2.81 L (4.30-5.90) m/uL Hgb 7.9 L (13.0-17.5) gm/dL Hct 25.9 L (39.0-53.0) % MCV 92.1 (80.0-100.0) fL MCH 28.2 (25.0-35.0) pg MCHC 30.6 L (31.0-37.0) g/dL RDW 15.8 H (11.5-15.5) % Plt Count 302 (150-450) k/uL Neutrophils % 63 % Lymphocytes % 23 % Monocytes % 8 % Eosinophils % 3 % Basophils % 1 % Neutrophils # 3.6 (1.3-7.7) k/uL Lymphocytes # 1.3 (1.0-4.8) k/uL Monocytes # 0.5 (0-1.0) k/uL Eosinophils # 0.2 (0-0.7) k/uL Basophils # 0.0 (0-0.2) k/uL Hypochromasia Slight Sodium 140 (137-145) mmol/L Potassium 4.4 (3.5-5.1) mmol/L Chloride 108 H (98-107) mmol/L Carbon Dioxide 22 (22-30) mmol/L Anion Gap 10 mmol/L BUN 37 H (9-20) mg/dL Creatinine 10.36 H* (0.66-1.25) mg/dL Est GFR (MDRD) Af Amer 7 (>60 ml/min/1.73 sqM) Est GFR (MDRD) Non-Af 6 (>60 ml/min/1.73 sqM) Glucose 80 (74-99) mg/dL Calcium 8.5 (8.4-10.2) mg/dL Total Bilirubin 0.6 (0.2-1.3) mg/dL AST 21 (17-59) U/L ALT 21 (21-72) U/L Alkaline Phosphatase 98 (38-126) U/L Total Protein 5.9 L (6.3-8.2) g/dL Albumin 2.9 L (3.5-5.0) g/dL Amylase 70 (30-110) U/L Lipase 23 (23-300) U/L Acetone, Qual Negative (Negative) Disposition Clinical Impression: Cyclical vomiting syndrome, Hemodialysis patient Disposition: HOME SELF-CARE Condition: Fair Instructions: Chronic Kidney Disease (ED), End Stage Kidney Disease (ED) Additional Instructions: To up with your hemodialysis team. Continue home medications Referrals: Myron Bailey DO [Primary Care Provider] - 1-2 days Time of Disposition: 00:29
[2016-12-10 20:50] LABS: Basophils % (A) 1 %; CH 28.1; CHCM 30.6; Eosinophils # (A) 0.2 k/uL (0-0.7); Eosinophils % (A) 3 %; HCT 25.9 % (39.0-53.0); HGB 7.9 gm/dL (13.0-17.5); Hypochromasia Slight; Luc # (Auto) 0.15; Luc % (Auto) 3; Lymphocytes # (A) 1.3 k/uL (1.0-4.8); Lymphocytes % (A) 23 %; MCH 28.2 pg (25.0-35.0); MCHC 30.6 g/dL (31.0-37.0); MCV 92.1 fL (80.0-100.0); Monocytes # (A) 0.5 k/uL (0-1.0); Monocytes % (A) 8 %; Neutrophils # (A) 3.6 k/uL (1.3-7.7); Neutrophils % (A) 63 %; RBC 2.81 m/uL (4.30-5.90); RDW 15.8 % (11.5-15.5); WBC 5.7 k/uL (3.8-10.6); WBC (Perox) 5.53
[2016-12-10 21:15] LABS: ALT 21 U/L (21-72); AST 21 U/L (17-59); Alkaline Phosphatase 98 U/L (38-126); Amylase 70 U/L (30-110); Anion Gap 10 mmol/L; Blood Urea Nitrogen 37 mg/dL (9-20); Calcium 8.5 mg/dL (8.4-10.2); Carbon Dioxide 22 mmol/L (22-30); Chloride 108 mmol/L (98-107); Glucose 80 mg/dL (74-99); Non-African American GFR(MDRD) 6 (>60 ml/min/1.73 sqM); Potassium 4.4 mmol/L (3.5-5.1); Sodium 140 mmol/L (137-145); Total Bilirubin 0.6 mg/dL (0.2-1.3); Total Protein 5.9 g/dL (6.3-8.2)
[2016-12-10 22:06] VITALS: TEMP 98.4
[2016-12-10] MEDS ORDERED: cloNIDine HCL 0.1 MG TAB PO STA (22:22)
[2016-12-10 23:45] VITALS: BP 160/95; PULSE 85
== END 2016-12-11 00:42 | disposition home or self-care (01) ==
LOC: EC 19:21
DX: G43.A0 Cyclical vomiting, in migraine, not intractable (principal); R10.9 Unspecified abdominal pain; R06.02 Shortness of breath; I12.9 Hypertensive chronic kidney disease with stage 1 through stage 4 chronic kidney disease, or unspecified chronic kidney disease; E10.10 Type 1 diabetes mellitus with ketoacidosis without coma; E10.29 Type 1 diabetes mellitus with other diabetic kidney complication; N18.3 Chronic kidney disease, stage 3 (moderate); F90.9 Attention-deficit hyperactivity disorder, unspecified type; F32.9 Major depressive disorder, single episode, unspecified; F41.9 Anxiety disorder, unspecified; Z87.891 Personal history of nicotine dependence; Z79.4 Long term (current) use of insulin; Z79.899 Other long term (current) drug therapy; Z87.19 Personal history of other diseases of the digestive system; Z90.49 Acquired absence of other specified parts of digestive tract; Z99.2 Dependence on renal dialysis
CPT/HCPCS: 99284; 96374; 96375; 96376; 96361 ×4; 36415; 80053; 82150; 82009; 83690; 85025; J2405; J1170; C9113

== ENCOUNTER 2016-12-15 10:52 | Observation (INO) | payer OTHER ==
[2016-12-15] MEDS ORDERED: METOCLOPRAMIDE 5 MG/ML 2 ML VIAL IVP STA ×2 (11:09→12:51)
[2016-12-15] MEDS ORDERED: SODIUM CHLORIDE 0.9% 250 ML IV STA (11:09)
[2016-12-15 11:13] LABS: Glucose,Whole Blood 110 mg/dL (75-99)
--- NOTE | 2016-12-15 11:14 | ED ---
Abdominal Pain HPI - General Chief Complaint: Abdominal Pain Stated Complaint: abdominal pain N&V Time Seen by Provider: 12/15/16 10:59 Source: patient Mode of arrival: wheelchair Limitations: no limitations - History of Present Illness Initial Comments: 26-year-old male history of insulin-dependent diabetes since age 9 i.e. 16 years documented gastroparesis chronic renal failure on dialysis in the last several months. Has recurrent vomiting episodes was recently hospitalized and discharged about a week ago. Began having nausea and yesterday no vomiting today with abdominal pain. No change in his bowel movements. He was last dialyzed on Saturday 3 days ago and missed his dialysis yesterday. No fever no chills. No chest pain or shortness of breath. No history of asthma, seizures or stroke. - Related Data Home Medications Medication Instructions Recorded Confirmed Insulin Glargine [Lantus] 18 unit SQ HS 06/06/15 12/15/16 buPROPion SR [Wellbutrin SR] 150 mg PO BID 06/18/15 12/15/16 INSULIN LISPRO (HumaLOG) [humaLOG] 4 units SQ AC-TID 10/16/16 12/15/16 Lisinopril [Zestril] 20 mg PO BID 10/16/16 12/15/16 Metoclopramide HCl [Reglan] 5 mg PO TID 10/16/16 12/15/16 Ranitidine HCl [Zantac] 150 mg PO HS 10/16/16 12/15/16 Potassium Chloride ER [K-Dur 20] 20 meq PO DAILY 10/20/16 12/15/16 Ergocalciferol (Vitamin D2) 50,000 unit PO MO 10/26/16 12/15/16 [Vitamin D2] Docusate [Colace] 100 mg PO BID 12/07/16 12/15/16 oxyCODONE-APAP 5-325MG [Percocet 1 tab PO Q4HR PRN 12/10/16 12/15/16 5-325 mg] amLODIPine [Norvasc] 10 mg PO DAILY 12/15/16 12/15/16 Previous Rx's Medication Instructions Recorded Metoprolol Tartrate [Lopressor] 100 mg PO BID #60 tab 07/16/15 Ondansetron Odt [Zofran ODT] 4 mg PO Q8HR PRN #15 tab 08/03/16 Calcium Acetate [PhosLo] 667 mg PO TID-W/MEALS #90 cap 11/21/16 Allergies Allergy/AdvReac Type Severity Reaction Status Date / Time No Known Allergies Allergy Verified 12/15/16 11:43 Review of Systems ROS Statement: Those systems with pertinent positive or pertinent negative responses have been documented in the HPI. ROS Other: All systems not noted in ROS Statement are negative. Constitutional: Denies: fever, chills ENT: Denies: ear pain, throat pain Respiratory: Denies: cough Cardiovascular: Denies: chest pain Gastrointestinal: Reports: abdominal pain, nausea, vomiting. Denies: diarrhea Genitourinary: Denies: urgency, dysuria, frequency Skin: Denies: rash Psychiatric: Denies: anxiety Hematological/Lymphatic: Denies: easy bleeding, easy bruising Past Medical History Past Medical History: Asthma, Diabetes Mellitus, GERD/Reflux, Hypertension, Osteoarthritis (OA), Renal Disease Additional Past Medical History / Comment(s): IDDM type I, GASTROPARESIS, gastritis, esophagitis,cyclic vomiting syndrome, DKA episodes, hiatal hernia, as child had seizure r/t high fever, pancreatits(idiopathic), chronic kidney disease stage III-hemodialysis //Saturday, L leg neuropathy, migraines. History of Any Multi-Drug Resistant Organisms: MRSA Date of last positivie culture/infection: MDRO Source:: CHIN/ Rt leg Past Surgical History: Cholecystectomy, Orthopedic Surgery, Tonsillectomy Additional Past Surgical History / Comment(s): R upper chest hemodialysis catheter, PICC line, LEFT ELBOW pinned, egd's w/ bx's last done 05-30-16.-03-17 picc line exchange. Past Anesthesia/Blood Transfusion Reactions: No Reported Reaction Past Psychological History: ADD/ADHD, Anxiety, Depression Smoking Status: Former smoker Past Alcohol Use History: None Reported Past Drug Use History: None Reported - Past Family History Mother Family Medical History: Diabetes Mellitus Additional Family Medical History / Comment(s): heart problems-(pt not sure what they were) Father Family Medical History: Diabetes Mellitus General Exam Limitations: no limitations General appearance: alert Head exam: Present: atraumatic Eye exam: Present: PERRL, EOMI ENT exam: Present: normal oropharynx, mucous membranes moist Neck exam: Present: full ROM Respiratory exam: Present: normal lung sounds bilaterally Cardiovascular Exam: Present: regular rate, tachycardia GI/Abdominal exam: Present: tenderness (Generalized). Absent: guarding, rebound Neurological exam: Present: alert, CN II-XII intact Psychiatric exam: Present: normal affect, normal mood Skin exam: Present: warm, dry Course Vital Signs 12/15/16 12/15/16 12/15/16 10:54 13:55 14:04 Temperature 98.3 F Pulse Rate 108 H 110 H Respiratory 20 16 Rate Blood Pressure 206/104 209/117 191/94 O2 Sat by Pulse 100 98 Oximetry Medical Decision Making - Medical Decision Making Insulin-dependent diabetic chronic renal failure patient continues to have vomiting his been given 2 doses of Reglan and Dilaudid contused hip. Inability to take intake we have spoken to Dr. ramirez patient will be admitted consult to renal one dose of labetalol was given for his elevated blood pressure. - Lab Data Result diagrams: 12/15/16 11:10 12/15/16 11:10 Lab Results 12/15/16 12/15/16 12/15/16 Range/Units 11:10 11:10 11:10 WBC 6.5 (3.8-10.6) k/uL RBC 3.00 L (4.30-5.90) m/uL Hgb 8.4 L (13.0-17.5) gm/dL Hct 27.4 L (39.0-53.0) % MCV 91.3 (80.0-100.0) fL MCH 27.9 (25.0-35.0) pg MCHC 30.6 L (31.0-37.0) g/dL RDW 15.3 (11.5-15.5) % Plt Count 351 (150-450) k/uL Neutrophils % 65 % Lymphocytes % 23 % Monocytes % 6 % Eosinophils % 3 % Basophils % 0 % Neutrophils # 4.2 (1.3-7.7) k/uL Lymphocytes # 1.5 (1.0-4.8) k/uL Monocytes # 0.4 (0-1.0) k/uL Eosinophils # 0.2 (0-0.7) k/uL Basophils # 0.0 (0-0.2) k/uL Hypochromasia Slight Sodium 143 (137-145) mmol/L Potassium 4.5 (3.5-5.1) mmol/L Chloride 109 H (98-107) mmol/L Carbon Dioxide 20 L (22-30) mmol/L Anion Gap 14 mmol/L BUN 51 H (9-20) mg/dL Creatinine 14.30 H* (0.66-1.25) mg/dL Est GFR (MDRD) Af Amer 5 (>60 ml/min/1.73 sqM) Est GFR (MDRD) Non-Af 4 (>60 ml/min/1.73 sqM) Glucose 106 H (74-99) mg/dL POC Glucose (mg/dL) (75-99) mg/dL POC Glu [facility] Worker ID Calcium 8.6 (8.4-10.2) mg/dL Total Bilirubin 0.6 (0.2-1.3) mg/dL AST 16 L (17-59) U/L ALT 20 L (21-72) U/L Alkaline Phosphatase 104 (38-126) U/L Total Creatine Kinase 350 H (55-170) U/L CK-MB (CK-2) 2.1 (0.0-2.4) ng/mL CK-MB (CK-2) Rel Index 0.6 Troponin I 0.034 (0.000-0.034) ng/mL Total Protein 6.4 (6.3-8.2) g/dL Albumin 3.2 L (3.5-5.0) g/dL Amylase 68 (30-110) U/L Lipase 37 (23-300) U/L 12/15/16 Range/Units 11:12 WBC (3.8-10.6) k/uL RBC (4.30-5.90) m/uL Hgb (13.0-17.5) gm/dL Hct (39.0-53.0) % MCV (80.0-100.0) fL MCH (25.0-35.0) pg MCHC (31.0-37.0) g/dL RDW (11.5-15.5) % Plt Count (150-450) k/uL Neutrophils % % Lymphocytes % % Monocytes % % Eosinophils % % Basophils % % Neutrophils # (1.3-7.7) k/uL Lymphocytes # (1.0-4.8) k/uL Monocytes # (0-1.0) k/uL Eosinophils # (0-0.7) k/uL Basophils # (0-0.2) k/uL Hypochromasia Sodium (137-145) mmol/L Potassium (3.5-5.1) mmol/L Chloride (98-107) mmol/L Carbon Dioxide (22-30) mmol/L Anion Gap mmol/L BUN (9-20) mg/dL Creatinine (0.66-1.25) mg/dL Est GFR (MDRD) Af Amer (>60 ml/min/1.73 sqM) Est GFR (MDRD) Non-Af (>60 ml/min/1.73 sqM) Glucose (74-99) mg/dL POC Glucose (mg/dL) 110 H (75-99) mg/dL POC Glu [facility] Worker ID Ca Hartman Calcium (8.4-10.2) mg/dL Total Bilirubin (0.2-1.3) mg/dL AST (17-59) U/L ALT (21-72) U/L Alkaline Phosphatase (38-126) U/L Total Creatine Kinase (55-170) U/L CK-MB (CK-2) (0.0-2.4) ng/mL CK-MB (CK-2) Rel Index Troponin I (0.000-0.034) ng/mL Total Protein (6.3-8.2) g/dL Albumin (3.5-5.0) g/dL Amylase (30-110) U/L Lipase (23-300) U/L - EKG Data -: EKG Interpreted by Me 12/15/16 11:31 EKG 12/15/2016 1126 ventricular rate 10 2 bpm, TX interval 152 ms, QRS duration 94 ms, QT interval 364 ms sinus tachycardia and nonspecific ST-T changes. Disposition Clinical Impression: Persistent vomiting, Gastroparesis, Chronic renal failure, Insulin dependent diabetes mellitus Disposition: ADMITTED IP TO THIS HOSP Condition: Fair Referrals: Myron Bailey DO [Primary Care Provider] - 1-2 days Time of Disposition: 14:30
[2016-12-15 11:26] LABS: Basophils % (A) 0 %; CH 27.9; CHCM 30.8; Eosinophils # (A) 0.2 k/uL (0-0.7); Eosinophils % (A) 3 %; HCT 27.4 % (39.0-53.0); HDW 2.35; HGB 8.4 gm/dL (13.0-17.5); Hypochromasia Slight; Luc # (Auto) 0.17; Luc % (Auto) 3; Lymphocytes # (A) 1.5 k/uL (1.0-4.8); Lymphocytes % (A) 23 %; MCH 27.9 pg (25.0-35.0); MCHC 30.6 g/dL (31.0-37.0); MCV 91.3 fL (80.0-100.0); Monocytes # (A) 0.4 k/uL (0-1.0); Monocytes % (A) 6 %; Neutrophils # (A) 4.2 k/uL (1.3-7.7); Neutrophils % (A) 65 %; RDW 15.3 % (11.5-15.5); WBC 6.5 k/uL (3.8-10.6); WBC (Perox) 6.28
[2016-12-15] MEDS ORDERED: HYDROmorphone 1 MG/ML 1 ML SYRINGE IVP STA ×2 (11:31→12:48)
[2016-12-15 11:35] LABS: Calcium 8.6 mg/dL (8.4-10.2); Potassium 4.5 mmol/L (3.5-5.1); Total Bilirubin 0.6 mg/dL (0.2-1.3); Total Protein 6.4 g/dL (6.3-8.2)
[2016-12-15 12:01] LABS: Creatine Kinase MB 2.1 ng/mL (0.0-2.4); Troponin I 0.034 ng/mL (0.000-0.034)
--- NOTE | 2016-12-15 12:50 | XR ---
EXAMINATION TYPE: XR abdomen 2V DATE OF EXAM: 12/15/2016 COMPARISON: NONE HISTORY: Abdominal pain and nausea TECHNIQUE: One view abdominal series FINDINGS: Central line seen with right basilar infiltrate and small effusion. Few prominent small bowel loops a re seen with a nonspecific gas pattern. IMPRESSION: 1. Nonspecific abdomen. Few prominent small bowel loops related to enteritis or ileus. 2. Right lower lobe infiltrate and small effusion. Tiny left pleural effusion also suspected.
--- NOTE | 2016-12-15 12:52 | XR ---
EXAMINATION TYPE: XR chest 2V DATE OF EXAM: 12/15/2016 COMPARISON: 12/07/2016 TECHNIQUE: PA and lateral views submitted. HISTORY: Pain FINDINGS: Heart is enlarged and there is a dialysis catheter with diffuse interstitial pattern and tiny bilater al effusions. IMPRESSION: 1. Mild CHF.
[2016-12-15] MEDS ORDERED: NALOXONE 0.4 MG/ML 1 ML VIAL IV PRN (14:24)
[2016-12-15] MEDS ORDERED: HYDROmorphone 1 MG/ML 1 ML SYRINGE IV PRN (14:24)
[2016-12-15] MEDS ORDERED: LABETALOL 5 MG/ML VIAL MDV IVP STA (14:24)
[2016-12-15 14:48] LABS: Glucose,Whole Blood 115 mg/dL (75-99)
[2016-12-15 15:09] LABS: Appearance,Urine Clear (Clear); Bacteria,Urine Rare /hpf; Bilirubin,Urine Negative (Negative); Glucose,Urine (UA) 2+ (Negative); Ketones,Urine Trace (Negative); Leukocyte Esterase,Urine Small (Negative); Nitrite,Urine Negative (Negative); PH, Urine 6.5 (5.0-8.0); Particle Count 2359; Protein,Urine 4+ (Negative); RBC,Urine 4 /hpf (0-5); Specific Gravity,Urine 1.011 (1.001-1.035); UA Billing (MACRO vs. MICRO) MICRO; Urobilinogen,Urine <2.0 mg/dL (<2.0); WBC,Urine 28 /hpf (0-5)
[2016-12-15 15:45] VITALS: RESP 18
[2016-12-15 15:58] VITALS: BMI 42.5
[2016-12-15] MEDS: SODIUM CHLORIDE 0.9% 1,000 ML IV SCH (16:03)
[2016-12-15] MEDS: INSULIN LISPRO (humaLOG) 300 UNIT/3 ML VIAL SQ SCH (17:13)
[2016-12-15 17:20] LABS: Glucose,Whole Blood 97 mg/dL (75-99)
[2016-12-15] MEDS: METOCLOPRAMIDE 5 MG TAB PO SCH ×2 (17:21→21:07)
[2016-12-15] MEDS: oxyCODONE-APAP 5-325MG 1 EACH TAB PO PRN (18:21)
[2016-12-15] MEDS: METOPROLOL TARTRATE 50 MG TAB PO SCH (21:06)
[2016-12-15] MEDS: buPROPion SR 150 MG TABLET.ER PO SCH (21:07)
[2016-12-15] MEDS: DOCUSATE 100 MG CAP PO SCH (21:07)
[2016-12-15] MEDS: LISINOPRIL 20 MG TAB PO SCH (21:07)
[2016-12-15] MEDS: FAMOTIDINE 20 MG TAB PO SCH (21:07)
[2016-12-15] MEDS: INSULIN GLARGINE 100 UNIT/ML 10 ML VIAL SQ SCH (21:08)
[2016-12-16] MEDS: INSULIN LISPRO (humaLOG) 300 UNIT/3 ML VIAL SQ SCH ×4 (00:09→17:44)
[2016-12-16 00:10] LABS: Glucose,Whole Blood 85 mg/dL (75-99)
[2016-12-16] MEDS: oxyCODONE-APAP 5-325MG 1 EACH TAB PO PRN ×5 (03:51→23:41)
[2016-12-16] MEDS: SODIUM CHLORIDE 0.9% 1,000 ML IV SCH ×2 (04:55→15:42)
[2016-12-16 06:05] LABS: Glucose,Whole Blood 122 mg/dL (75-99)
[2016-12-16 06:28] LABS: Basophils % (A) 1 %; CH 27.8; CHCM 30.2; Eosinophils # (A) 0.2 k/uL (0-0.7); Eosinophils % (A) 4 %; HCT 25.8 % (39.0-53.0); HGB 7.7 gm/dL (13.0-17.5); Hypochromasia Moderate; Luc # (Auto) 0.13; Luc % (Auto) 2; Lymphocytes # (A) 1.3 k/uL (1.0-4.8); Lymphocytes % (A) 21 %; MCH 27.7 pg (25.0-35.0); MCHC 29.9 g/dL (31.0-37.0); MCV 92.6 fL (80.0-100.0); Mean Platelet Volume 6.8; Monocytes # (A) 0.3 k/uL (0-1.0); Monocytes % (A) 5 %; Neutrophils # (A) 4.2 k/uL (1.3-7.7); Neutrophils % (A) 68 %; RBC 2.78 m/uL (4.30-5.90); RDW 15.3 % (11.5-15.5); WBC 6.2 k/uL (3.8-10.6); WBC (Perox) 6.16
[2016-12-16 06:47] LABS: Calcium 8.3 mg/dL (8.4-10.2); Magnesium 2.7 mg/dL (1.6-2.3); Phosphorous 6.8 mg/dL (2.5-4.5)
[2016-12-16 07:44] LABS: Glucose,Whole Blood 104 mg/dL (75-99)
[2016-12-16] MEDS: CALCIUM ACETATE 667 MG CAP PO SCH ×3 (08:11→17:42)
[2016-12-16] MEDS: LISINOPRIL 20 MG TAB PO SCH ×2 (08:11→20:58)
[2016-12-16] MEDS: METOCLOPRAMIDE 5 MG TAB PO SCH ×3 (08:12→20:59)
[2016-12-16] MEDS: DOCUSATE 100 MG CAP PO SCH ×2 (08:12→20:57)
[2016-12-16] MEDS: buPROPion SR 150 MG TABLET.ER PO SCH ×2 (08:12→20:58)
[2016-12-16] MEDS: METOPROLOL TARTRATE 50 MG TAB PO SCH ×2 (08:12→20:57)
[2016-12-16] MEDS: POTASSIUM CHLORIDE ER 20 MEQ TAB.ER PO SCH (08:13)
[2016-12-16] MEDS: amLODIPine 10 MG TAB PO SCH (08:13)
[2016-12-16] MEDS: PANTOPRAZOLE 40 MG/10 ML VIAL IV SCH (08:13)
[2016-12-16 12:32] LABS: Glucose,Whole Blood 109 mg/dL (75-99)
--- NOTE | 2016-12-16 15:18 | CONS ---
DATE OF CONSULTATION: REASON FOR CONSULTATION: End-stage renal disease. HISTORY OF PRESENT ILLNESS: Patient is a 26-year-old male with a history of end-stage renal disease secondary to diabetic nephropathy on hemodialysis on a Saturday, Saturday, Saturday schedule. Patient has a strong history of noncompliance. He again did not show up for treatment as outpatient and presented to the hospital with nausea and vomiting. His creatinine was as high as 14.3 mg/dL. He is not volume overloaded. In fact, he is maintained on IV fluids at this time. The patient states he is feeling slightly better. He denies any chest pains or shortness of breath. PAST MEDICAL HISTORY: End-stage renal disease, diabetes type 1 insulin-dependent with history of gastroparesis. DKA, history of pancreatitis, anemia of chronic disease, CKD bone mineral disease. PAST SURGICAL HISTORY: Perm-A-Cath placement for dialysis, tonsillectomy, cholecystectomy, left elbow surgery. SOCIAL HISTORY: The patient is a former smoker. No history of drug abuse or alcohol abuse. Medications at home prior to admission included: 1. Insulin. 2. Wellbutrin. 3. Zestril. 4. Reglan. 5. Zantac. 6. K-Dur. 7. Vitamin D2. 8. Norvasc. 9. Lopressor. 10. Zofran. 11. PhosLo. ALLERGIES: None. REVIEW OF SYSTEMS: As per HPI. Other systems negative. On examination, the patient is currently comfortable, awake, alert and oriented x3. He is not in any acute distress. Blood pressure is 168/117, heart rate 84 per minute. He is afebrile. Examination of the heart S1 and S2. Examination of the lungs bilateral breath sounds are heard. ABDOMEN: Soft, nontender. Examination of lower extremities shows no significant edema. DESIGN DIRECTOR exam is grossly intact. Labs show sodium 140, potassium 5.0, chloride 108, BUN 51, serum creatinine 14.3. Phosphorus was 6.8. Hemoglobin 7.7 g/dL. ASSESSMENT: 1. End-stage renal disease on hemodialysis on a Saturday, Saturday, Saturday schedule. We will arrange for treatment tomorrow. 2. Hypertension, uncontrolled, we will resume home medications. 3. Anemia of chronic disease with hemoglobin significantly low as patient has been noncompliant and has not received his Procrit as outpatient. 4. Chronic kidney disease bone mineral disorder. We will maintain patient on his home phosphate binders once he is eating. 5. History of drug-seeking behavior. PLAN: Hemodialysis in a.m. Possible discharge tomorrow after dialysis.
[2016-12-16 17:29] LABS: Glucose,Whole Blood 121 mg/dL (75-99)
--- NOTE | 2016-12-16 17:39 | HP ---
DATE OF ADMISSION: 12/15/2016 PRESENTING COMPLAINT: Nausea and vomiting. HISTORY OF PRESENTING COMPLAINT: This is 26-year-old patient of Dr. Bailey who has had multiple hospital admissions. Chronic stable medical conditions include esophagitis, end-stage kidney disease on hemodialysis, depression, hypertension, autonomic dysfunction. Patient presented again with nausea, vomiting, blood pressure running high. Patient had not gone for his hemodialysis, therefore, being admitted for the same. This is a recurrent factor. REVIEW OF SYSTEMS: CONSTITUTIONAL: None. HEENT: None. RESPIRATORY: None. CARDIOVASCULAR: None. GASTROINTESTINAL: As above. MUSCULOSKELETAL: Occasional low back pain. DERMATOLOGIC: None. HEMATOLOGIC: None. PSYCHIATRY: Some anxiety. NEUROLOGICAL: None. PAST MEDICAL HISTORY: Diabetes mellitus type 2, GERD, hypertension, gastroparesis, esophagitis, chronic kidney disease on hemodialysis. PAST SURGICAL HISTORY: Tonsillectomy, cholecystectomy, right upper chest hemodialysis catheter, left elbow pinning. SOCIAL HISTORY: Lives with his mother. Patient smoked from 2006 to 2011. Patient has medical marijuana. HOME MEDICATIONS: 1. Percocet 5, one tablet q.4 p.r.n. 2. Wellbutrin SR 150 mg p.o. b.i.d. 3. Norvasc 10 mg p.o. daily. 4. Zantac 150 mg p.o. q.h.s. 5. Potassium 20 mEq p.o. daily. 6. Zofran 4 mg q.8 p.r.n. 7. Lopressor 100 mg p.o. b.i.d. 8. Reglan 5 mg p.o. t.i.d. 9. Zestril 20 mg p.o. b.i.d. 10. Lantus 18 units subcu q.h.s. 11. Humalog 4 units subcutaneously t.i.d. 12. Vitamin D2, 50,000 units p.o. Saturday. 13. Colace 100 mg b.i.d. 14. PhosLo 667 mg p.o. daily with meals. ALLERGIES: None. PHYSICAL EXAMINATION: Vital signs on presentation: Temperature 98.3, pulse 108, respirations 20, blood pressure 206/104, pulse 100% on room air. GENERAL APPEARANCE: Well built, lying in bed, not in distress, is comfortable. EYES: Pupils equal, conjunctivae normal. HEENT: Oral cavity normal. NECK: JVD not raised. Mass not palpable. RESPIRATORY: Effort normal. LUNGS: Clear entry. CARDIOVASCULAR: First and second sounds normal. No edema. ABDOMEN: Soft, nontender. Liver and spleen not palpable. LYMPHATIC: No lymph nodes palpable in the neck or axillae. PSYCHIATRY: Alert and oriented x3. Mood and affect slightly low. NEUROLOGICAL: Pupils equal. Cranial nerves grossly intact. INVESTIGATIONS: White count 6.5, hemoglobin 8.4. Potassium 4.5, BUN 51, creatinine 14.3. ASSESSMENT: 1. Accelerated hypertension. 2. End-stage kidney disease on hemodialysis, been noncompliant. 3. Gastroparesis secondary to underlying diabetes mellitus type 2. 4. Gastroesophageal reflux disease. 5. Chronic esophagitis. 6. Autonomic dysfunction from long-standing diabetes. 7. Obesity, body mass index more than 39. 8. Chronic abdominal pain, has been seen by both bus operator and pain management, no indication for IV Dilaudid. PLAN: Nephrology was consulted. Blood pressure medications will be adjusted. Diet will be advanced as tolerated. SABINE BAILEY DO
[2016-12-16] MEDS: INSULIN GLARGINE 100 UNIT/ML 10 ML VIAL SQ SCH (20:57)
[2016-12-16] MEDS: FAMOTIDINE 20 MG TAB PO SCH (20:57)
[2016-12-16 23:20] VITALS: PULSE 83; TEMP 98.2
[2016-12-17 00:18] LABS: Glucose,Whole Blood 104 mg/dL (75-99)
[2016-12-17] MEDS: INSULIN LISPRO (humaLOG) 300 UNIT/3 ML VIAL SQ SCH ×3 (00:30→11:43)
[2016-12-17] MEDS: SODIUM CHLORIDE 0.9% 1,000 ML IV SCH (04:40)
[2016-12-17] MEDS: ONDANSETRON 4 MG/2 ML VIAL IVP PRN ×2 (04:40→15:38)
[2016-12-17 06:03] LABS: Glucose,Whole Blood 91 mg/dL (75-99)
[2016-12-17] MEDS: oxyCODONE-APAP 5-325MG 1 EACH TAB PO PRN ×3 (07:20→15:38)
[2016-12-17] MEDS: CALCIUM ACETATE 667 MG CAP PO SCH ×2 (07:22→11:47)
[2016-12-17] MEDS: DOCUSATE 100 MG CAP PO SCH (08:54)
[2016-12-17] MEDS: amLODIPine 10 MG TAB PO SCH (08:54)
[2016-12-17] MEDS: POTASSIUM CHLORIDE ER 20 MEQ TAB.ER PO SCH (08:54)
[2016-12-17] MEDS: buPROPion SR 150 MG TABLET.ER PO SCH (08:54)
[2016-12-17] MEDS: LISINOPRIL 20 MG TAB PO SCH ×2 (08:54→16:24)
[2016-12-17] MEDS: METOPROLOL TARTRATE 50 MG TAB PO SCH ×2 (08:54→16:24)
[2016-12-17] MEDS: METOCLOPRAMIDE 5 MG TAB PO SCH ×2 (08:55→15:07)
[2016-12-17] MEDS: PANTOPRAZOLE 40 MG/10 ML VIAL IV SCH (08:55)
--- NOTE | 2016-12-17 09:45 | P.PN ---
Subjective Patient is seen in follow-up for end-stage renal disease. He is maintained on hemodialysis on a Saturday schedule via permacath. Etiology is diabetic kidney disease. Patient has been very noncompliant with hemodialysis treatments as an outpatient. Patient presented to the hospital with nausea and vomiting along with abdominal pain. States he had some of his dinner last night and part of his breakfast this morning as well. His pain is mostly resolved. No vomiting or diarrhea. Vital signs are stable. General: The patient appeared well nourished and normally developed. HEENT: Head exam is unremarkable. Neck is without jugular venous distension. LUNGS: Lungs are clear to auscultation and percussion. Breath sounds decreased. HEART: Rate and Rhythm are regular. First and second heart sounds normal. No murmurs, rubs or gallops. ABDOMEN: Abdominal exam reveals normal bowel sounds. Non-tender and non- distended. No evidence of peritonitis. EXTREMITITES: No clubbing, cyanosis, or edema. Objective - Vital Signs Vital signs: Vital Signs Temp 98.2 F 12/17/16 07:00 Pulse 83 12/17/16 07:24 Resp 18 12/17/16 07:24 BP 180/95 12/17/16 07:00 Pulse Ox 95 12/17/16 07:00 Intake & Output 12/16/16 12/17/16 12/17/16 18:59 06:59 18:59 Intake Total 1500 50 240 Output Total 1200 350 Balance 300 -300 240 Weight 123 kg 123 kg Intake: Intake, IV Titration 700 Amount Sodium Chloride 0.9% 1, 700 000 ml @ 70 mls/hr IV . [id number] [facility] Rx#:[id number] Oral 800 50 240 Output: Urine 1200 350 Other: Voiding Method Urinal Urinal Urinal # Voids 1 - Labs CBC & Chem 7: 12/16/16 06:10 12/16/16 06:10 Labs: Abnormal Lab Results - Last 24 Hours (Table) 12/16/16 12/16/16 12/17/16 Range/Units 12:29 17:08 00:16 POC Glucose (mg/dL) 109 H 121 H 104 H (75-99) mg/dL Assessment and Plan Plan: Assessment: #1. End-stage renal disease maintained on hemodialysis on a Ted Wednesday Shaun schedule via permacath. Etiology is diabetic kidney disease. #2. Nausea vomiting and abdominal pain related to diabetic gastroparesis likely. Improving. #3. Anemia of chronic kidney disease. #4. Chronic kidney disease mineral bone disease. #5. Hypertension with chronic kidney disease. Partially related to gastroparesis flare. #6. Insulin-dependent diabetes mellitus. Plan: Hemodialysis today with goal 2-3 L ultrafiltration. Maintain PhosLo with meals. Start Aranesp. Encourage oral intake as tolerated. Expect further improvement in blood pressure post dialysis.
[2016-12-17] MEDS ORDERED: DARBEPOETIN ALFA 40 MCG/0.4 ML SYRINGE SQ SCH (11:00)
[2016-12-17 11:19] LABS: Glucose,Whole Blood 110 mg/dL (75-99)
[2016-12-17] MEDS ORDERED: ERGOCALCIFEROL 50,000 UNIT CAP PO SCH (12:00)
[2016-12-17 17:04] VITALS: BP 170/97
--- NOTE | 2016-12-21 13:22 | DS ---
DATE OF ADMISSION: 12/15/2016 DATE OF DISCHARGE: 12/17/2016 FINAL DIAGNOSES: 1. Hypertension, from missed hemodialysis present on admission. 2. End stage kidney disease on hemodialysis. 3. Gastroparesis from underlying diabetes mellitus type 2. 4. Gastroesophageal reflux disease. 5. Chronic esophagitis. 6. Autonomic dysfunction from long-standing diabetes. 7. Obesity, body mass index more than 39. 8. Chronic abdominal pain has been seen by both gastroenterology and pain management ( ) ADAM Castellon multiple occasions. HOSPITAL COURSE: The patient again missed dialysis, came in with nausea, vomiting, high blood pressure, actually blood pressure is better controlled. Received dialysis. Tolerating his diet. The patient yet again reminded to be compliant. ABDOMEN: Soft, nontender. Answering questions. DISCHARGE MEDICATIONS: 1. Lantus 18 units subcu q.h.s. 2. Wellbutrin SR 150 mg p.o. b.i.d. 3. ( ). 4. Zofran 4 mg q.8 p.r.n. 5. Humalog 4 units subcu a.c. t.i.d. 6. Zestril 20 mg b.i.d. 7. Reglan 5 mg p.o. t.i.d. 8. Zantac 150 mg p.o. q.h.s. 9. Potassium 20 meq p.o. daily. 10. Vitamin D2, 50,000 units p.o. Saturday. 11. PhosLo 667 mg p.o. t.i.d. 12. Percocet 5, 1 tablet p.o. q.4 p.r.n. 13. Norvasc 10 mg p.o. daily. Follow-up with Dr. Martins in one week, follow-up with Dr. Bailey on 12/21/2016. Hemodialysis schedule to be maintained.
== END 2016-12-17 17:20 | disposition home or self-care (01) ==
LOC: EC 10:52 → 5MS5E 14:24 → INTOOBSV 14:24 → 5MS5E 15:15
PROVIDERS: ADMIT Hospitalist; ATTEND Hospitalist
DX: K31.84 Gastroparesis (principal); N18.6 End stage renal disease; E10.22 Type 1 diabetes mellitus with diabetic chronic kidney disease; E10.43 Type 1 diabetes mellitus with diabetic autonomic (poly)neuropathy; I12.0 Hypertensive chronic kidney disease with stage 5 chronic kidney disease or end stage renal disease; D63.1 Anemia in chronic kidney disease; E66.9 Obesity, unspecified; F32.9 Major depressive disorder, single episode, unspecified; G89.29 Other chronic pain; K21.0 Gastro-esophageal reflux disease with esophagitis; J45.909 Unspecified asthma, uncomplicated; M19.90 Unspecified osteoarthritis, unspecified site; K44.9 Diaphragmatic hernia without obstruction or gangrene; E10.40 Type 1 diabetes mellitus with diabetic neuropathy, unspecified; G43.909 Migraine, unspecified, not intractable, without status migrainosus; F41.9 Anxiety disorder, unspecified; F90.9 Attention-deficit hyperactivity disorder, unspecified type; E83.9 Disorder of mineral metabolism, unspecified; F45.8 Other somatoform disorders; Z79.4 Long term (current) use of insulin; Z79.899 Other long term (current) drug therapy; Z91.19 Patient's noncompliance with other medical treatment and regimen; Z99.2 Dependence on renal dialysis; Z87.891 Personal history of nicotine dependence; Z68.39 Body mass index [BMI] 39.0-39.9, adult; Z86.14 Personal history of Methicillin resistant Staphylococcus aureus infection
CPT/HCPCS: 96361 ×2; 96372; 96376; 96374; 96375; 99285; 36415; 93005; 80053; 80048; 82150; 83036; 82550; 82553; 83690; 83735; 84100; 84484; 85025 ×2; 81001; 71020; 74020; G0378 ×3; J2765; S0106 ×3; J2405; J1170; C9113 ×2; J0881; 90935

== ENCOUNTER 2016-12-18 00:50 | Emergency (ER) | payer OTHER ==
[2016-12-18 00:58] VITALS: RESP 16
[2016-12-18] MEDS ORDERED: SODIUM CHLORIDE 0.9% 1,000 ML IV ONE (03:08)
[2016-12-18] MEDS ORDERED: ONDANSETRON 4 MG/2 ML VIAL IVP STA (03:09)
--- NOTE | 2016-12-18 03:12 | ED ---
Abdominal Pain HPI <MaricruzkristaYusuf - Last Filed: 12/18/16 07:26> - General Source: patient, RN notes reviewed Mode of arrival: ambulatory Limitations: no limitations <Renata Da Silva - Last Filed: 12/19/16 17:51> - General Chief Complaint: Abdominal Pain Stated Complaint: Stomach Pain/Nausea/Vomiting Time Seen by Provider: 12/18/16 02:42 - History of Present Illness Initial Comments: Patient is a 26-year-old male presents to the emergency room for evaluation abdominal pain. Patient well-known to the emergency room. Patient is end- stage renal failure. Patient states he was discharged yesterday. Patient states that since he got home he began having worsening abdominal pain and advised to come back here to be evaluated. Patient states she's been vomiting since she was discharged. Patient states he's been dry heaving since he was brought back to room. Patient states he is having 10 out of 10 constant pain in his abdomen radiating to his back. Patient states the symptoms are consistent with his normal symptoms. Patient denies changing symptoms. Patient states he has been having cold and hot flashes. Patient denies diarrhea or constipation. Patient states he just had dialysis on the day of discharge. (Renata Da Silva) - Related Data Home Medications Medication Instructions Recorded Confirmed RX: Insulin Glargine [Lantus] 18 unit SQ HS 06/06/15 12/19/16 RX: buPROPion SR [Wellbutrin SR] 150 mg PO BID 06/18/15 12/19/16 RX: INSULIN LISPRO (HumaLOG) 4 units SQ AC-TID 10/16/16 12/19/16 [humaLOG] RX: Lisinopril [Zestril] 20 mg PO BID 10/16/16 12/19/16 RX: Metoclopramide HCl [Reglan] 5 mg PO TID 10/16/16 12/19/16 RX: Ranitidine HCl [Zantac] 150 mg PO HS 10/16/16 12/19/16 RX: Potassium Chloride ER [K-Dur 20 meq PO DAILY 10/20/16 12/19/16 20] RX: Ergocalciferol (Vitamin D2) 50,000 unit PO MO 10/26/16 12/19/16 [Vitamin D2] RX: oxyCODONE-APAP 5-325MG 1 tab PO Q4HR PRN 12/10/16 12/19/16 [Percocet 5-325 mg] RX: amLODIPine [Norvasc] 10 mg PO DAILY 12/15/16 12/19/16 Previous Rx's Medication Instructions Recorded RX: Metoprolol Tartrate [Lopressor] 100 mg PO BID #60 tab 07/16/15 RX: Ondansetron Odt [Zofran ODT] 4 mg PO Q8HR PRN #15 tab 08/03/16 RX: Calcium Acetate [PhosLo] 667 mg PO TID-W/MEALS #90 cap 11/21/16 Allergies Allergy/AdvReac Type Severity Reaction Status Date / Time No Known Allergies Allergy Verified 12/19/16 15:07 Review of Systems ROS Other: All systems not noted in ROS Statement are negative. <Yusuf Ponce - Last Filed: 12/18/16 07:26> ROS Other: All systems not noted in ROS Statement are negative. <Renata Da Silva - Last Filed: 12/19/16 17:51> ROS Statement: Those systems with pertinent positive or pertinent negative responses have been documented in the HPI. Past Medical History Past Medical History: Asthma, Diabetes Mellitus, GERD/Reflux, Hypertension, Osteoarthritis (OA), Renal Disease Additional Past Medical History / Comment(s): IDDM type I, GASTROPARESIS, gastritis, esophagitis,cyclic vomiting syndrome, DKA episodes, hiatal hernia, as child had seizure r/t high fever, pancreatits(idiopathic), chronic kidney disease stage III-hemodialysis //Saturday, L leg neuropathy, migraines. History of Any Multi-Drug Resistant Organisms: MRSA Date of last positivie culture/infection: MDRO Source:: CHIN/ Rt leg Past Surgical History: Cholecystectomy, Orthopedic Surgery, Tonsillectomy Additional Past Surgical History / Comment(s): R upper chest hemodialysis catheter, PICC line, LEFT ELBOW pinned, egd's w/ bx's last done 05-30-16.12-07-16 picc line exchange. Past Anesthesia/Blood Transfusion Reactions: No Reported Reaction Past Psychological History: ADD/ADHD, Anxiety, Depression Smoking Status: Former smoker Past Alcohol Use History: None Reported - Past Family History Mother Family Medical History: Diabetes Mellitus Additional Family Medical History / Comment(s): heart problems-(pt not sure what they were) Father Family Medical History: Diabetes Mellitus <Renata Da Silva - Last Filed: 12/19/16 17:51> General Exam <Yusuf Ponce - Last Filed: 12/18/16 07:26> Limitations: no limitations General appearance: alert, in no apparent distress Head exam: Present: atraumatic, normocephalic, normal inspection Eye exam: Present: normal appearance ENT exam: Present: normal exam Neck exam: Present: normal inspection Respiratory exam: Present: normal lung sounds bilaterally. Absent: respiratory distress Cardiovascular Exam: Present: regular rate, normal rhythm, normal heart sounds GI/Abdominal exam: Present: soft, tenderness (diffuse), normal bowel sounds. Absent: distended, guarding, rebound, rigid Extremities exam: Present: normal inspection Back exam: Present: normal inspection Neurological exam: Present: alert, oriented X3, CN II-XII intact, normal gait Psychiatric exam: Present: normal affect, normal mood Skin exam: Present: warm, dry, intact, normal color. Absent: rash <Renata Da Silva - Last Filed: 12/19/16 17:51> - General Exam Comments Initial Comments: laying in exam room, slightly anxious secondary to pain. (Renata Da Silva) Medical Decision Making - Lab Data Result diagrams: 12/18/16 02:50 12/18/16 02:50 <Yusuf Ponce - Last Filed: 12/18/16 07:26> - Lab Data Result diagrams: 12/18/16 02:50 12/18/16 02:50 <Renata Da Silva - Last Filed: 12/19/16 17:51> - Medical Decision Making patient is a 26-year-old male since emergency room for evaluation of abdominal pain. Case discussed and passed on to Dr. Ponce at 4:30 AM. (Renata Da Silva) - Lab Data Lab Results 12/18/16 12/18/16 12/18/16 Range/Units 02:50 02:50 02:50 WBC 6.2 (3.8-10.6) k/uL RBC 2.96 L (4.30-5.90) m/uL Hgb 8.2 L (13.0-17.5) gm/dL Hct 26.7 L (39.0-53.0) % MCV 90.2 (80.0-100.0) fL MCH 27.6 (25.0-35.0) pg MCHC 30.7 L (31.0-37.0) g/dL RDW 15.1 (11.5-15.5) % Plt Count 342 (150-450) k/uL Neutrophils % 63 % Lymphocytes % 23 % Monocytes % 7 % Eosinophils % 4 % Basophils % 1 % Neutrophils # 3.9 (1.3-7.7) k/uL Lymphocytes # 1.5 (1.0-4.8) k/uL Monocytes # 0.4 (0-1.0) k/uL Eosinophils # 0.3 (0-0.7) k/uL Basophils # 0.0 (0-0.2) k/uL Sodium 138 (137-145) mmol/L Potassium 4.3 (3.5-5.1) mmol/L Chloride 107 (98-107) mmol/L Carbon Dioxide 22 (22-30) mmol/L Anion Gap 9 mmol/L BUN 35 H (9-20) mg/dL Creatinine 10.50 H* (0.66-1.25) mg/dL Est GFR (MDRD) Af Amer 7 (>60 ml/min/1.73 sqM) Est GFR (MDRD) Non-Af 6 (>60 ml/min/1.73 sqM) Glucose 110 H (74-99) mg/dL POC Glucose (mg/dL) (75-99) mg/dL POC Glu Grain Unloader ID Calcium 8.5 (8.4-10.2) mg/dL Magnesium 2.3 (1.6-2.3) mg/dL Total Bilirubin 0.5 (0.2-1.3) mg/dL AST 14 L (17-59) U/L ALT 26 (21-72) U/L Alkaline Phosphatase 110 (38-126) U/L Total Protein 5.9 L (6.3-8.2) g/dL Albumin 2.9 L (3.5-5.0) g/dL Amylase 59 (30-110) U/L Lipase 30 (23-300) U/L Acetone, Qual Positive (Negative) 12/18/16 Range/Units 05:13 WBC (3.8-10.6) k/uL RBC (4.30-5.90) m/uL Hgb (13.0-17.5) gm/dL Hct (39.0-53.0) % MCV (80.0-100.0) fL MCH (25.0-35.0) pg MCHC (31.0-37.0) g/dL RDW (11.5-15.5) % Plt Count (150-450) k/uL Neutrophils % % Lymphocytes % % Monocytes % % Eosinophils % % Basophils % % Neutrophils # (1.3-7.7) k/uL Lymphocytes # (1.0-4.8) k/uL Monocytes # (0-1.0) k/uL Eosinophils # (0-0.7) k/uL Basophils # (0-0.2) k/uL Sodium (137-145) mmol/L Potassium (3.5-5.1) mmol/L Chloride (98-107) mmol/L Carbon Dioxide (22-30) mmol/L Anion Gap mmol/L BUN (9-20) mg/dL Creatinine (0.66-1.25) mg/dL Est GFR (MDRD) Af Amer (>60 ml/min/1.73 sqM) Est GFR (MDRD) Non-Af (>60 ml/min/1.73 sqM) Glucose (74-99) mg/dL POC Glucose (mg/dL) 93 (75-99) mg/dL POC Glu Grain Unloader ID [place], Laura Calcium (8.4-10.2) mg/dL Magnesium (1.6-2.3) mg/dL Total Bilirubin (0.2-1.3) mg/dL AST (17-59) U/L ALT (21-72) U/L Alkaline Phosphatase (38-126) U/L Total Protein (6.3-8.2) g/dL Albumin (3.5-5.0) g/dL Amylase (30-110) U/L Lipase (23-300) U/L Acetone, Qual (Negative) Disposition <Yusuf Ponce - Last Filed: 12/18/16 07:26> <Renata Da Silva - Last Filed: 12/19/16 17:51> Clinical Impression: Abdominal pain Disposition: HOME SELF-CARE Condition: Fair Instructions: Abdominal Pain (ED) Referrals: Myron Bailey DO [Primary Care Provider] - 1-2 days
[2016-12-18] MEDS: HYDROmorphone 1 MG/ML 1 ML SYRINGE IVP STA ×2 (03:14→05:13)
[2016-12-18 03:21] LABS: Calcium 8.5 mg/dL (8.4-10.2); Magnesium 2.3 mg/dL (1.6-2.3); Potassium 4.3 mmol/L (3.5-5.1); Total Bilirubin 0.5 mg/dL (0.2-1.3); Total Protein 5.9 g/dL (6.3-8.2)
[2016-12-18 03:24] LABS: Basophils % (A) 1 %; CH 28.3; CHCM 31.6; Eosinophils # (A) 0.3 k/uL (0-0.7); Eosinophils % (A) 4 %; HCT 26.7 % (39.0-53.0); HDW 2.51; HGB 8.2 gm/dL (13.0-17.5); Luc # (Auto) 0.13; Luc % (Auto) 2; Lymphocytes # (A) 1.5 k/uL (1.0-4.8); Lymphocytes % (A) 23 %; MCH 27.6 pg (25.0-35.0); MCHC 30.7 g/dL (31.0-37.0); MCV 90.2 fL (80.0-100.0); Monocytes # (A) 0.4 k/uL (0-1.0); Monocytes % (A) 7 %; Neutrophils # (A) 3.9 k/uL (1.3-7.7); Neutrophils % (A) 63 %; RBC 2.96 m/uL (4.30-5.90); RDW 15.1 % (11.5-15.5); WBC 6.2 k/uL (3.8-10.6); WBC (Perox) 6.73
[2016-12-18 05:19] LABS: Glucose,Whole Blood 93 mg/dL (75-99)
[2016-12-18 06:41] VITALS: BP 166/78; PULSE 78; TEMP 97.8
== END 2016-12-18 07:37 | disposition home or self-care (01) ==
LOC: EC 00:50
DX: R10.84 Generalized abdominal pain (principal); R11.10 Vomiting, unspecified; E10.43 Type 1 diabetes mellitus with diabetic autonomic (poly)neuropathy; K31.84 Gastroparesis; E10.22 Type 1 diabetes mellitus with diabetic chronic kidney disease; I12.9 Hypertensive chronic kidney disease with stage 1 through stage 4 chronic kidney disease, or unspecified chronic kidney disease; N18.3 Chronic kidney disease, stage 3 (moderate); K21.9 Gastro-esophageal reflux disease without esophagitis; F32.9 Major depressive disorder, single episode, unspecified; Z87.891 Personal history of nicotine dependence; Z99.2 Dependence on renal dialysis; Z90.49 Acquired absence of other specified parts of digestive tract; Z79.4 Long term (current) use of insulin; Z79.899 Other long term (current) drug therapy
CPT/HCPCS: 99284; 96374; 96375; 96376; 96361 ×4; 36415; 80053; 82150; 82009; 83690; 83735; 85025; J2405; J1170

== ENCOUNTER 2016-12-19 14:48 | Emergency (ER) | payer OTHER ==
[2016-12-19 16:50] LABS: Basophils % (A) 0 %; CH 28.5; CHCM 30.9; Eosinophils # (A) 0.2 k/uL (0-0.7); Eosinophils % (A) 2 %; HCT 27.6 % (39.0-53.0); HDW 2.45; HGB 8.5 gm/dL (13.0-17.5); Hypochromasia Slight; Luc # (Auto) 0.17; Luc % (Auto) 2; Lymphocytes # (A) 1.2 k/uL (1.0-4.8); Lymphocytes % (A) 17 %; MCH 28.6 pg (25.0-35.0); MCHC 30.8 g/dL (31.0-37.0); MCV 92.9 fL (80.0-100.0); Monocytes # (A) 0.4 k/uL (0-1.0); Monocytes % (A) 6 %; Neutrophils # (A) 5.5 k/uL (1.3-7.7); Neutrophils % (A) 73 %; RBC 2.97 m/uL (4.30-5.90); RDW 15.5 % (11.5-15.5); WBC 7.5 k/uL (3.8-10.6); WBC (Perox) 7.54
[2016-12-19 17:06] LABS: ALT 28 U/L (21-72); AST 15 U/L (17-59); Alkaline Phosphatase 113 U/L (38-126); Amylase 99 U/L (30-110); Anion Gap 13 mmol/L; Blood Urea Nitrogen 38 mg/dL (9-20); Calcium 8.5 mg/dL (8.4-10.2); Carbon Dioxide 21 mmol/L (22-30); Chloride 109 mmol/L (98-107); Glucose 87 mg/dL (74-99); Magnesium 2.4 mg/dL (1.6-2.3); Potassium 4.2 mmol/L (3.5-5.1); Sodium 143 mmol/L (137-145); Total Bilirubin 0.3 mg/dL (0.2-1.3); Total Protein 5.9 g/dL (6.3-8.2)
[2016-12-19] MEDS ORDERED: ONDANSETRON 4 MG/2 ML VIAL IVP STA (17:07)
[2016-12-19] MEDS ORDERED: SODIUM CHLORIDE 0.9% 1,000 ML IV ONE (17:07)
[2016-12-19] MEDS ORDERED: HYDROmorphone 1 MG/ML 1 ML SYRINGE IVP STA ×2 (17:07→17:56)
[2016-12-19 17:08] LABS: Non-African American GFR(MDRD) 5 (>60 ml/min/1.73 sqM)
--- NOTE | 2016-12-19 17:10 | ED ---
Abdominal Pain HPI - General Chief Complaint: Abdominal Pain Stated Complaint: Abd Pain/Nausea/Vomiting Time Seen by Provider: 12/19/16 16:16 Source: patient, RN notes reviewed Mode of arrival: wheelchair Limitations: no limitations - History of Present Illness Initial Comments: Patient is a 26-year-old male presents to the emergency room for evaluation abdominal pain and vomiting. Patient has been here multiple times for this issue. Patient states he went to dialysis yesterday. Patient states today he began with diffuse abdominal pain, nausea, vomiting. patient denies chest pain or shortness of breath. Patient denies fevers or chills. Patient states he has not checked his sugars today. - Related Data Home Medications Medication Instructions Recorded Confirmed Insulin Glargine [Lantus] 18 unit SQ HS 06/06/15 12/19/16 buPROPion SR [Wellbutrin SR] 150 mg PO BID 06/18/15 12/19/16 INSULIN LISPRO (HumaLOG) [humaLOG] 4 units SQ AC-TID 10/16/16 12/19/16 Lisinopril [Zestril] 20 mg PO BID 10/16/16 12/19/16 Metoclopramide HCl [Reglan] 5 mg PO TID 10/16/16 12/19/16 Ranitidine HCl [Zantac] 150 mg PO HS 10/16/16 12/19/16 Potassium Chloride ER [K-Dur 20] 20 meq PO DAILY 10/20/16 12/19/16 Ergocalciferol (Vitamin D2) 50,000 unit PO MO 10/26/16 12/19/16 [Vitamin D2] oxyCODONE-APAP 5-325MG [Percocet 1 tab PO Q4HR PRN 12/10/16 12/19/16 5-325 mg] amLODIPine [Norvasc] 10 mg PO DAILY 12/15/16 12/19/16 Previous Rx's Medication Instructions Recorded Metoprolol Tartrate [Lopressor] 100 mg PO BID #60 tab 07/16/15 Ondansetron Odt [Zofran ODT] 4 mg PO Q8HR PRN #15 tab 08/03/16 Calcium Acetate [PhosLo] 667 mg PO TID-W/MEALS #90 cap 11/21/16 Allergies Allergy/AdvReac Type Severity Reaction Status Date / Time No Known Allergies Allergy Verified 12/19/16 15:07 Review of Systems ROS Statement: Those systems with pertinent positive or pertinent negative responses have been documented in the HPI. ROS Other: All systems not noted in ROS Statement are negative. Past Medical History Past Medical History: Asthma, Diabetes Mellitus, GERD/Reflux, Hypertension, Osteoarthritis (OA), Renal Disease Additional Past Medical History / Comment(s): IDDM type I, GASTROPARESIS, gastritis, esophagitis,cyclic vomiting syndrome, DKA episodes, hiatal hernia, as child had seizure r/t high fever, pancreatits(idiopathic), chronic kidney disease stage III-hemodialysis //Saturday, L leg neuropathy, migraines. History of Any Multi-Drug Resistant Organisms: MRSA Date of last positivie culture/infection: MDRO Source:: CHIN/ Rt leg Past Surgical History: Cholecystectomy, Orthopedic Surgery, Tonsillectomy Additional Past Surgical History / Comment(s): R upper chest hemodialysis catheter, PICC line, LEFT ELBOW pinned, egd's w/ bx's last done 05-30-16.12-07-16 picc line exchange. Past Anesthesia/Blood Transfusion Reactions: No Reported Reaction Past Psychological History: ADD/ADHD, Anxiety, Depression Smoking Status: Former smoker Past Alcohol Use History: None Reported Past Drug Use History: None Reported - Past Family History Mother Family Medical History: Diabetes Mellitus Additional Family Medical History / Comment(s): heart problems-(pt not sure what they were) Father Family Medical History: Diabetes Mellitus General Exam - General Exam Comments Initial Comments: laying in exam room Limitations: no limitations General appearance: alert, anxious Head exam: Present: atraumatic, normocephalic, normal inspection Eye exam: Present: normal appearance, PERRL, EOMI Pupils: Present: normal accommodation ENT exam: Present: normal exam Respiratory exam: Present: normal lung sounds bilaterally. Absent: respiratory distress Cardiovascular Exam: Present: regular rate, normal rhythm, normal heart sounds GI/Abdominal exam: Present: soft, tenderness (diffuse), normal bowel sounds. Absent: distended, guarding, rebound, rigid Extremities exam: Present: normal inspection Back exam: Present: normal inspection Neurological exam: Present: alert, oriented X3, CN II-XII intact, normal gait Psychiatric exam: Present: normal affect, normal mood Skin exam: Present: warm, dry, intact, normal color. Absent: rash Course Vital Signs 12/19/16 12/19/16 15:03 18:38 Temperature 99.1 F Pulse Rate 105 H Respiratory 18 Rate Blood Pressure 205/109 209/119 O2 Sat by Pulse 100 Oximetry Medical Decision Making - Medical Decision Making Patient is 26-year-old male presents to the emergency room for evaluation of abdominal pain and nausea and vomiting. Patient symptoms improved after medications given. Patient's blood pressure still elevated. Patient will be given blood pressure medications and sent home. Return parameters discussed. Case discussed with Dr. Yeh. - Lab Data Result diagrams: 12/19/16 16:32 12/19/16 16:32 Lab Results 12/19/16 12/19/16 12/19/16 Range/Units 16:32 16:32 16:32 WBC 7.5 (3.8-10.6) k/uL RBC 2.97 L (4.30-5.90) m/uL Hgb 8.5 L (13.0-17.5) gm/dL Hct 27.6 L (39.0-53.0) % MCV 92.9 (80.0-100.0) fL MCH 28.6 (25.0-35.0) pg MCHC 30.8 L (31.0-37.0) g/dL RDW 15.5 (11.5-15.5) % Plt Count 323 (150-450) k/uL Neutrophils % 73 % Lymphocytes % 17 % Monocytes % 6 % Eosinophils % 2 % Basophils % 0 % Neutrophils # 5.5 (1.3-7.7) k/uL Lymphocytes # 1.2 (1.0-4.8) k/uL Monocytes # 0.4 (0-1.0) k/uL Eosinophils # 0.2 (0-0.7) k/uL Basophils # 0.0 (0-0.2) k/uL Hypochromasia Slight Sodium 143 (137-145) mmol/L Potassium 4.2 (3.5-5.1) mmol/L Chloride 109 H (98-107) mmol/L Carbon Dioxide 21 L (22-30) mmol/L Anion Gap 13 mmol/L BUN 38 H (9-20) mg/dL Creatinine 11.90 H* (0.66-1.25) mg/dL Est GFR (MDRD) Af Amer 6 (>60 ml/min/1.73 sqM) Est GFR (MDRD) Non-Af 5 (>60 ml/min/1.73 sqM) Glucose 87 (74-99) mg/dL Calcium 8.5 (8.4-10.2) mg/dL Magnesium 2.4 H (1.6-2.3) mg/dL Total Bilirubin 0.3 (0.2-1.3) mg/dL AST 15 L (17-59) U/L ALT 28 (21-72) U/L Alkaline Phosphatase 113 (38-126) U/L Total Protein 5.9 L (6.3-8.2) g/dL Albumin 3.0 L (3.5-5.0) g/dL Amylase 99 (30-110) U/L Lipase 27 (23-300) U/L Acetone, Qual Negative (Negative) Disposition Clinical Impression: Abdominal pain, Hypertension Disposition: HOME SELF-CARE Condition: Good Instructions: Abdominal Pain (ED) Additional Instructions: Please follow up with primary care provider in 1-2 days. If any new symptom arises or symptoms worsen, return to ER as soon as possible. Referrals: Myron Bailey DO [Primary Care Provider] - 1-2 days Time of Disposition: 17:52
[2016-12-19] MEDS ORDERED: LORazepam 2 MG/ML SYRINGE IV STA (17:19)
[2016-12-19] MEDS ORDERED: diphenhydrAMINE 50 MG/ML 1 ML VIAL IVP STA (17:19)
[2016-12-19] MEDS ORDERED: LABETALOL 5 MG/ML VIAL MDV IVP STA (18:43)
[2016-12-19] MEDS ORDERED: cloNIDine HCL 0.2 MG TAB PO STA (18:45)
[2016-12-19 19:25] VITALS: BP 204/123; PULSE 98; RESP 17; TEMP 98.7
== END 2016-12-19 19:25 | disposition home or self-care (01) ==
LOC: EC 14:48
DX: R10.84 Generalized abdominal pain (principal); I12.9 Hypertensive chronic kidney disease with stage 1 through stage 4 chronic kidney disease, or unspecified chronic kidney disease; N18.3 Chronic kidney disease, stage 3 (moderate); E10.9 Type 1 diabetes mellitus without complications; R11.2 Nausea with vomiting, unspecified; K21.9 Gastro-esophageal reflux disease without esophagitis; F32.9 Major depressive disorder, single episode, unspecified; F90.9 Attention-deficit hyperactivity disorder, unspecified type; Z99.2 Dependence on renal dialysis; Z86.14 Personal history of Methicillin resistant Staphylococcus aureus infection; Z87.891 Personal history of nicotine dependence; Z79.4 Long term (current) use of insulin; Z79.899 Other long term (current) drug therapy
CPT/HCPCS: 99284; 96374; 96375 ×4; 96376; 36415; 80053; 82150; 82009; 83690; 83735; 85025; J2060; J1200; J2405; J1170

== ENCOUNTER 2016-12-20 14:39 | Emergency (ER) | payer OTHER ==
[2016-12-20] MEDS ORDERED: METOCLOPRAMIDE 5 MG/ML 2 ML VIAL IVP STA (16:26)
[2016-12-20] MEDS ORDERED: LORazepam 2 MG/ML SYRINGE IV STA ×2 (16:26→19:28)
[2016-12-20] MEDS ORDERED: HYDROmorphone 1 MG/ML 1 ML SYRINGE IVP STA ×2 (16:26→17:30)
[2016-12-20] MEDS ORDERED: diphenhydrAMINE 50 MG/ML 1 ML VIAL IVP STA (16:26)
[2016-12-20] MEDS ORDERED: SODIUM CHLORIDE 0.9% 2,000 ML IV STA (16:26)
--- NOTE | 2016-12-20 16:34 | ED ---
Abdominal Pain HPI - General Chief Complaint: Abdominal Pain Stated Complaint: revisit abd pain Time Seen by Provider: 12/20/16 16:07 Source: patient, RN notes reviewed Mode of arrival: ambulatory Limitations: no limitations - History of Present Illness Initial Comments: 26 yo male presents to the ER with cc of abdominal pain n/v. Patient is a frequent visitor of the emergency department for similar complaints. Patient does suffer from diabetes. Patient states that he was here yesterday. Patient states that he went home feeling better and then overnight he woke up vomiting. Patient states he has not eaten anything all day today. Patient denies any headache. Patient denies any fever. Patient states he has some diffuse abdominal cramping. Patient states he was concerned due to his symptoms he thought that he should be evaluated. Patient denies any recent fever, chills, shortness of breath, chest pain, back pain, numbness or tingling, dysuria or hematuria, constipation or diarrhea, headaches or visual changes, or any other current symptoms. - Related Data Home Medications Medication Instructions Recorded Confirmed Insulin Glargine [Lantus] 18 unit SQ HS 06/06/15 12/20/16 buPROPion SR [Wellbutrin SR] 150 mg PO BID 06/18/15 12/20/16 INSULIN LISPRO (HumaLOG) [humaLOG] 4 units SQ AC-TID 10/16/16 12/20/16 Lisinopril [Zestril] 20 mg PO BID 10/16/16 12/20/16 Metoclopramide HCl [Reglan] 5 mg PO TID 10/16/16 12/20/16 Ranitidine HCl [Zantac] 150 mg PO HS 10/16/16 12/20/16 Potassium Chloride ER [K-Dur 20] 20 meq PO DAILY 10/20/16 12/20/16 Ergocalciferol (Vitamin D2) 50,000 unit PO MO 10/26/16 12/20/16 [Vitamin D2] oxyCODONE-APAP 5-325MG [Percocet 1 tab PO Q4HR PRN 12/10/16 12/20/16 5-325 mg] amLODIPine [Norvasc] 10 mg PO DAILY 12/15/16 12/20/16 Previous Rx's Medication Instructions Recorded Metoprolol Tartrate [Lopressor] 100 mg PO BID #60 tab 07/16/15 Ondansetron Odt [Zofran ODT] 4 mg PO Q8HR PRN #15 tab 08/03/16 Calcium Acetate [PhosLo] 667 mg PO TID-W/MEALS #90 cap 11/21/16 Allergies Allergy/AdvReac Type Severity Reaction Status Date / Time No Known Allergies Allergy Verified 12/20/16 16:06 Review of Systems ROS Statement: Those systems with pertinent positive or pertinent negative responses have been documented in the HPI. ROS Other: All systems not noted in ROS Statement are negative. Past Medical History Past Medical History: Asthma, Diabetes Mellitus, GERD/Reflux, Hypertension, Osteoarthritis (OA), Renal Disease Additional Past Medical History / Comment(s): IDDM type I, GASTROPARESIS, gastritis, esophagitis,cyclic vomiting syndrome, DKA episodes, hiatal hernia, as child had seizure r/t high fever, pancreatits(idiopathic), chronic kidney disease stage III-hemodialysis M//Saturday, L leg neuropathy, migraines. History of Any Multi-Drug Resistant Organisms: MRSA Date of last positivie culture/infection: MDRO Source:: CHIN/ Rt leg Past Surgical History: Cholecystectomy, Orthopedic Surgery, Tonsillectomy Additional Past Surgical History / Comment(s): R upper chest hemodialysis catheter, PICC line, LEFT ELBOW pinned, egd's w/ bx's last done 05-30-16.12-07-16 picc line exchange. Past Anesthesia/Blood Transfusion Reactions: No Reported Reaction Past Psychological History: ADD/ADHD, Anxiety, Depression Smoking Status: Former smoker Past Alcohol Use History: None Reported Past Drug Use History: None Reported - Past Family History Mother Family Medical History: Diabetes Mellitus Additional Family Medical History / Comment(s): heart problems-(pt not sure what they were) Father Family Medical History: Diabetes Mellitus General Exam Limitations: no limitations General appearance: alert, in no apparent distress Head exam: Present: atraumatic, normocephalic, normal inspection ENT exam: Present: normal exam, mucous membranes moist Neck exam: Present: normal inspection. Absent: tenderness, meningismus, lymphadenopathy Respiratory exam: Present: normal lung sounds bilaterally. Absent: respiratory distress, wheezes, rales, rhonchi, stridor Cardiovascular Exam: Present: regular rate, normal rhythm, normal heart sounds. Absent: systolic murmur, diastolic murmur, rubs, gallop, clicks GI/Abdominal exam: Present: soft, normal bowel sounds. Absent: distended, tenderness, guarding, rebound, rigid Neurological exam: Present: alert, oriented X3 Psychiatric exam: Present: normal affect, normal mood Skin exam: Present: warm, dry, intact, normal color. Absent: rash Course Vital Signs 12/20/16 12/20/16 12/20/16 15:10 17:54 19:01 Temperature 98.0 F 98.3 F Pulse Rate 97 99 103 H Respiratory 20 16 16 Rate Blood Pressure 182/112 191/133 201/123 O2 Sat by Pulse 100 98 98 Oximetry 12/20/16 12/20/16 12/20/16 19:56 20:32 21:05 Temperature 99.0 F Pulse Rate 97 Respiratory 20 Rate Blood Pressure 191/113 198/129 196/101 O2 Sat by Pulse 96 Oximetry - Reevaluation(s) Reevaluation #1: 12/20/16 21:38 BP has improved with discussed close follow up for hypertension. Discussed dialysis in AM pt in agreement with plan Medical Decision Making - Medical Decision Making 26-year-old male presents to the emergency Department chief complaint of nausea vomiting abdominal pain with a history of diabetes mellitus flareup. Patient does appear to have chronic anemia which is observed. Elevated creatinine he is due for dialysis in the morning. At this time otherwise patient's lab work does appear to be stable. This time blood pressure has improved with medication. We did discuss his hypertension. We discussed continuing his medication at home and follow-up with his doctor. We discussed follow-up for dialysis in the morning and all the patient's questions. He stated he understood and he is given plan. He will be discharged. - Lab Data Result diagrams: 12/20/16 16:38 12/20/16 16:38 Lab Results 12/20/16 12/20/16 12/20/16 Range/Units 16:38 16:38 16:53 WBC 6.9 (3.8-10.6) k/uL RBC 2.73 L (4.30-5.90) m/uL Hgb 8.0 L (13.0-17.5) gm/dL Hct 24.7 L (39.0-53.0) % MCV 90.7 (80.0-100.0) fL MCH 29.3 (25.0-35.0) pg MCHC 32.3 (31.0-37.0) g/dL RDW 15.4 (11.5-15.5) % Plt Count 313 (150-450) k/uL Neutrophils % 65 % Lymphocytes % 22 % Monocytes % 5 % Eosinophils % 6 % Basophils % 0 % Neutrophils # 4.4 (1.3-7.7) k/uL Lymphocytes # 1.5 (1.0-4.8) k/uL Monocytes # 0.3 (0-1.0) k/uL Eosinophils # 0.4 (0-0.7) k/uL Basophils # 0.0 (0-0.2) k/uL Hypochromasia Slight Sodium 141 (137-145) mmol/L Potassium 4.5 (3.5-5.1) mmol/L Chloride 109 H (98-107) mmol/L Carbon Dioxide 21 L (22-30) mmol/L Anion Gap 11 mmol/L BUN 40 H (9-20) mg/dL Creatinine 12.22 H* (0.66-1.25) mg/dL Est GFR (MDRD) Af Amer 6 (>60 ml/min/1.73 sqM) Est GFR (MDRD) Non-Af 5 (>60 ml/min/1.73 sqM) Glucose 90 (74-99) mg/dL POC Glucose (mg/dL) 87 (75-99) mg/dL POC Glu Proposal Consultant ID Nathalia Dowling Calcium 8.4 (8.4-10.2) mg/dL Total Bilirubin 0.6 (0.2-1.3) mg/dL AST 15 L (17-59) U/L ALT 19 L (21-72) U/L Alkaline Phosphatase 103 (38-126) U/L Total Protein 6.0 L (6.3-8.2) g/dL Albumin 2.9 L (3.5-5.0) g/dL Amylase 69 (30-110) U/L Lipase 22 L (23-300) U/L Urine Color Urine Appearance (Clear) Urine pH (5.0-8.0) Ur Specific [place] (1.001-1.035) Urine Protein (Negative) Urine Glucose (UA) (Negative) Urine Ketones (Negative) Urine Blood (Negative) Urine Nitrite (Negative) Urine Bilirubin (Negative) Urine Urobilinogen (<2.0) mg/dL Ur Leukocyte Esterase (Negative) Urine RBC (0-5) /hpf Urine WBC (0-5) /hpf Ur Squamous Epith Cells (0-4) /hpf Urine Bacteria (None) /hpf Hyaline Casts (0-2) /lpf Granular Casts (0) /lpf Acetone, Qual Positive (Negative) 12/20/16 Range/Units 17:59 WBC (3.8-10.6) k/uL RBC (4.30-5.90) m/uL Hgb (13.0-17.5) gm/dL Hct (39.0-53.0) % MCV (80.0-100.0) fL MCH (25.0-35.0) pg MCHC (31.0-37.0) g/dL RDW (11.5-15.5) % Plt Count (150-450) k/uL Neutrophils % % Lymphocytes % % Monocytes % % Eosinophils % % Basophils % % Neutrophils # (1.3-7.7) k/uL Lymphocytes # (1.0-4.8) k/uL Monocytes # (0-1.0) k/uL Eosinophils # (0-0.7) k/uL Basophils # (0-0.2) k/uL Hypochromasia Sodium (137-145) mmol/L Potassium (3.5-5.1) mmol/L Chloride (98-107) mmol/L Carbon Dioxide (22-30) mmol/L Anion Gap mmol/L BUN (9-20) mg/dL Creatinine (0.66-1.25) mg/dL Est GFR (MDRD) Af Amer (>60 ml/min/1.73 sqM) Est GFR (MDRD) Non-Af (>60 ml/min/1.73 sqM) Glucose (74-99) mg/dL POC Glucose (mg/dL) (75-99) mg/dL POC Glu Proposal Consultant ID Calcium (8.4-10.2) mg/dL Total Bilirubin (0.2-1.3) mg/dL AST (17-59) U/L ALT (21-72) U/L Alkaline Phosphatase (38-126) U/L Total Protein (6.3-8.2) g/dL Albumin (3.5-5.0) g/dL Amylase (30-110) U/L Lipase (23-300) U/L Urine Color Light Yellow Urine Appearance Clear (Clear) Urine pH 7.0 (5.0-8.0) Ur Specific [place] 1.011 (1.001-1.035) Urine Protein 3+ H (Negative) Urine Glucose (UA) 1+ H (Negative) Urine Ketones Negative (Negative) Urine Blood Small H (Negative) Urine Nitrite Negative (Negative) Urine Bilirubin Negative (Negative) Urine Urobilinogen <2.0 (<2.0) mg/dL Ur Leukocyte Esterase Trace H (Negative) Urine RBC 6 H (0-5) /hpf Urine WBC 21 H (0-5) /hpf Ur Squamous Epith Cells <1 (0-4) /hpf Urine Bacteria Rare H (None) /hpf Hyaline Casts 4 H (0-2) /lpf Granular Casts 1 (0) /lpf Acetone, Qual (Negative) Disposition Clinical Impression: Dehydration, Gastroparesis, Chronic renal failure, Abdominal pain, Nausea and vomiting in adult, Hypertension Disposition: HOME SELF-CARE Condition: Stable Instructions: Chronic Hypertension (ED) Additional Instructions: Please use home medications as prescribed. Follow up for dialysis as discussed. Please return for any worsening or changing symptoms. Referrals: Myron Bailey DO [Primary Care Provider] - 1-2 days Time of Disposition: 21:40
[2016-12-20 16:49] LABS: Basophils % (A) 0 %; CH 27.8; CHCM 30.8; Eosinophils # (A) 0.4 k/uL (0-0.7); Eosinophils % (A) 6 %; HCT 24.7 % (39.0-53.0); HDW 2.49; Hypochromasia Slight; Luc # (Auto) 0.17; Luc % (Auto) 3; Lymphocytes # (A) 1.5 k/uL (1.0-4.8); Lymphocytes % (A) 22 %; MCH 29.3 pg (25.0-35.0); MCHC 32.3 g/dL (31.0-37.0); MCV 90.7 fL (80.0-100.0); Mean Platelet Volume 6.7; Monocytes # (A) 0.3 k/uL (0-1.0); Monocytes % (A) 5 %; Neutrophils # (A) 4.4 k/uL (1.3-7.7); Neutrophils % (A) 65 %; RBC 2.73 m/uL (4.30-5.90); RDW 15.4 % (11.5-15.5); WBC 6.9 k/uL (3.8-10.6); WBC (Perox) 7.15
[2016-12-20 16:54] LABS: Glucose,Whole Blood 87 mg/dL (75-99)
[2016-12-20 17:03] LABS: ALT 19 U/L (21-72); AST 15 U/L (17-59); Alkaline Phosphatase 103 U/L (38-126); Amylase 69 U/L (30-110); Anion Gap 11 mmol/L; Blood Urea Nitrogen 40 mg/dL (9-20); Calcium 8.4 mg/dL (8.4-10.2); Carbon Dioxide 21 mmol/L (22-30); Chloride 109 mmol/L (98-107); Glucose 90 mg/dL (74-99); Potassium 4.5 mmol/L (3.5-5.1); Sodium 141 mmol/L (137-145); Total Bilirubin 0.6 mg/dL (0.2-1.3)
--- NOTE | 2016-12-20 17:09 | XR ---
EXAMINATION TYPE: XR abdomen 2V DATE OF EXAM: 12/20/2016 COMPARISON: 12/15/2016 HISTORY: Short of breath. TECHNIQUE: 3 views FINDINGS: Heart is enlarged. There is blunting of costophrenic angles. There is no sign of intestinal obstruction or pneumoperitoneum. Fecal pattern is normal. There is no sign of a mass. IMPRESSION: Pleural effusions. Nonacute abdomen. Pleural fluid is increased on the right side compare d to last exam .
[2016-12-20 17:12] LABS: Non-African American GFR(MDRD) 5 (>60 ml/min/1.73 sqM)
[2016-12-20] MEDS ORDERED: ENALAPRILAT 1.25 MG/ML 1 ML VIAL IVP STA (18:02)
[2016-12-20 18:13] LABS: Appearance,Urine Clear (Clear); Bacteria,Urine Rare /hpf; Bilirubin,Urine Negative (Negative); Glucose,Urine (UA) 1+ (Negative); Granular Casts,Urine 1 /lpf (0); Ketones,Urine Negative (Negative); Leukocyte Esterase,Urine Trace (Negative); Nitrite,Urine Negative (Negative); Particle Count 2482; Protein,Urine 3+ (Negative); RBC,Urine 6 /hpf (0-5); Specific Gravity,Urine 1.011 (1.001-1.035); Squamous Epithelial Cell,Urine <1 /hpf (0-4); UA Billing (MACRO vs. MICRO) MICRO; Urobilinogen,Urine <2.0 mg/dL (<2.0); WBC,Urine 21 /hpf (0-5)
[2016-12-20] MEDS ORDERED: LABETALOL 5 MG/ML VIAL MDV IVP STA (19:00)
[2016-12-20] MEDS ORDERED: hydrALAZINE HCL 20 MG/ML 1 ML VIAL IVP STA (20:12)
[2016-12-20] MEDS ORDERED: cloNIDine HCL 0.2 MG TAB PO STA (21:26)
[2016-12-20 21:54] VITALS: BP 194/98; PULSE 99; RESP 18; TEMP 98.6
== END 2016-12-20 21:50 | disposition home or self-care (01) ==
LOC: EC 14:39
DX: E10.43 Type 1 diabetes mellitus with diabetic autonomic (poly)neuropathy (principal); K31.84 Gastroparesis; R11.2 Nausea with vomiting, unspecified; E10.29 Type 1 diabetes mellitus with other diabetic kidney complication; I12.9 Hypertensive chronic kidney disease with stage 1 through stage 4 chronic kidney disease, or unspecified chronic kidney disease; N18.3 Chronic kidney disease, stage 3 (moderate); K21.9 Gastro-esophageal reflux disease without esophagitis; F32.9 Major depressive disorder, single episode, unspecified; F41.9 Anxiety disorder, unspecified; F90.9 Attention-deficit hyperactivity disorder, unspecified type; Z87.891 Personal history of nicotine dependence; Z79.4 Long term (current) use of insulin; Z79.899 Other long term (current) drug therapy
CPT/HCPCS: 36415; 80053; 82150; 82009; 83690; 85025; 81001; 74020; 99284; 96374; 96375 ×6; 96376 ×2; 96361 ×2; J2060; J0360; J1200; J2765; J1170

== ENCOUNTER 2016-12-21 09:18 | Emergency (ER) | payer OTHER ==
[2016-12-21] MEDS ORDERED: SODIUM CHLORIDE 0.9% 1,000 ML IV STA (09:26)
[2016-12-21] MEDS ORDERED: diphenhydrAMINE 50 MG/ML 1 ML VIAL IVP STA (09:27)
[2016-12-21] MEDS ORDERED: LORazepam 2 MG/ML SYRINGE IV STA (09:27)
[2016-12-21] MEDS ORDERED: ONDANSETRON 4 MG/2 ML VIAL IVP STA (09:27)
[2016-12-21] MEDS ORDERED: HYDROmorphone 1 MG/ML 1 ML SYRINGE IVP STA ×2 (09:27→11:38)
[2016-12-21 09:50] LABS: Basophils % (A) 1 %; CH 27.8; CHCM 30.8; Eosinophils # (A) 0.3 k/uL (0-0.7); Eosinophils % (A) 4 %; HCT 25.1 % (39.0-53.0); HDW 2.44; Hypochromasia Slight; Luc # (Auto) 0.19; Luc % (Auto) 3; Lymphocytes # (A) 1.6 k/uL (1.0-4.8); Lymphocytes % (A) 21 %; MCH 29.1 pg (25.0-35.0); MCHC 32.1 g/dL (31.0-37.0); MCV 90.6 fL (80.0-100.0); Mean Platelet Volume 6.7; Monocytes # (A) 0.4 k/uL (0-1.0); Monocytes % (A) 6 %; Neutrophils % (A) 66 %; RBC 2.76 m/uL (4.30-5.90); RDW 15.5 % (11.5-15.5); WBC 7.5 k/uL (3.8-10.6); WBC (Perox) 7.72
[2016-12-21 10:01] LABS: ALT 21 U/L (21-72); AST 15 U/L (17-59); Alkaline Phosphatase 115 U/L (38-126); Amylase 66 U/L (30-110); Anion Gap 11 mmol/L; Blood Urea Nitrogen 38 mg/dL (9-20); Calcium 8.5 mg/dL (8.4-10.2); Carbon Dioxide 21 mmol/L (22-30); Chloride 111 mmol/L (98-107); Glucose 96 mg/dL (74-99); Potassium 4.4 mmol/L (3.5-5.1); Sodium 143 mmol/L (137-145); Total Bilirubin 0.5 mg/dL (0.2-1.3); Total Protein 5.8 g/dL (6.3-8.2)
[2016-12-21] MEDS ORDERED: hydrALAZINE HCL 20 MG/ML 1 ML VIAL IVP STA (10:09)
--- NOTE | 2016-12-21 10:09 | ED ---
Abdominal Pain HPI <Damian Del Rio - Last Filed: 12/21/16 11:55> - General Source: patient, RN notes reviewed Mode of arrival: wheelchair Limitations: no limitations <Rolly Rodríguez - Last Filed: 12/21/16 12:13> - General Chief Complaint: Abdominal Pain Stated Complaint: sob,nausea, vomiting, abdominal pain Time Seen by Provider: 12/21/16 09:26 - History of Present Illness Initial Comments: 26-year-old male presents emergency Department chief complaint of abdominal pain nausea vomiting. Patient has chronic abdominal pain, gastroparesis on dialysis. Patient states he believes he went dialysis either Saturday or Saturday night exactly sure. Patient is having increased in pain at this time. Patient states that he feels that he is having problems with his chronic issues. Patient's denies any fever or chills. He states he has had some on-and -off shortness of breath but states he does remember having this ever since he had a sport place. Patient states that he has no pleuritic chest pain denies any headache or dizziness. Patient states his abdominal pain is diffuse in nature. (Rolly Rodríguez) - Related Data Home Medications Medication Instructions Recorded Confirmed Insulin Glargine [Lantus] 18 unit SQ HS 06/06/15 12/21/16 buPROPion SR [Wellbutrin SR] 150 mg PO BID 06/18/15 12/21/16 INSULIN LISPRO (HumaLOG) [humaLOG] 4 units SQ AC-TID 10/16/16 12/21/16 Lisinopril [Zestril] 20 mg PO BID 10/16/16 12/21/16 Metoclopramide HCl [Reglan] 5 mg PO TID 10/16/16 12/21/16 Ranitidine HCl [Zantac] 150 mg PO HS 10/16/16 12/21/16 Potassium Chloride ER [K-Dur 20] 20 meq PO DAILY 10/20/16 12/21/16 Ergocalciferol (Vitamin D2) 50,000 unit PO MO 10/26/16 12/21/16 [Vitamin D2] oxyCODONE-APAP 5-325MG [Percocet 1 tab PO Q4HR PRN 12/10/16 12/21/16 5-325 mg] amLODIPine [Norvasc] 10 mg PO DAILY 12/15/16 12/21/16 Previous Rx's Medication Instructions Recorded Metoprolol Tartrate [Lopressor] 100 mg PO BID #60 tab 07/16/15 Ondansetron Odt [Zofran ODT] 4 mg PO Q8HR PRN #15 tab 08/03/16 Calcium Acetate [PhosLo] 667 mg PO TID-W/MEALS #90 cap 11/21/16 Ciprofloxacin HCl [Cipro] 250 mg PO Q12HR #14 tablet 12/21/16 Allergies Allergy/AdvReac Type Severity Reaction Status Date / Time No Known Allergies Allergy Verified 12/21/16 10:29 Review of Systems ROS Other: All systems not noted in ROS Statement are negative. <Damian Del Rio - Last Filed: 12/21/16 11:55> ROS Other: All systems not noted in ROS Statement are negative. <Rolly Rodríguez - Last Filed: 12/21/16 12:13> ROS Statement: Those systems with pertinent positive or pertinent negative responses have been documented in the HPI. Past Medical History Past Medical History: Asthma, Diabetes Mellitus, GERD/Reflux, Hypertension, Osteoarthritis (OA), Renal Disease Additional Past Medical History / Comment(s): IDDM type I, GASTROPARESIS, gastritis, esophagitis,cyclic vomiting syndrome, DKA episodes, hiatal hernia, as child had seizure r/t high fever, pancreatits(idiopathic), chronic kidney disease stage III-hemodialysis M//Saturday, L leg neuropathy, migraines. History of Any Multi-Drug Resistant Organisms: MRSA Date of last positivie culture/infection: MDRO Source:: CHIN/ Rt leg Past Surgical History: Cholecystectomy, Orthopedic Surgery, Tonsillectomy Additional Past Surgical History / Comment(s): R upper chest hemodialysis catheter, PICC line, LEFT ELBOW pinned, egd's w/ bx's last done 05-30-16.6-03-17 picc line exchange. Past Anesthesia/Blood Transfusion Reactions: No Reported Reaction Past Psychological History: ADD/ADHD, Anxiety, Depression Smoking Status: Former smoker Past Alcohol Use History: None Reported Past Drug Use History: None Reported - Past Family History Mother Family Medical History: Diabetes Mellitus Additional Family Medical History / Comment(s): heart problems-(pt not sure what they were) Father Family Medical History: Diabetes Mellitus <Rolly Rodríguez - Last Filed: 12/21/16 12:13> General Exam Limitations: no limitations General appearance: alert, in no apparent distress Neck exam: Present: normal inspection. Absent: tenderness, meningismus, lymphadenopathy Respiratory exam: Present: normal lung sounds bilaterally. Absent: respiratory distress, wheezes, rales, rhonchi, stridor Cardiovascular Exam: Present: regular rate, normal rhythm, normal heart sounds. Absent: systolic murmur, diastolic murmur, rubs, gallop, clicks GI/Abdominal exam: Present: soft, tenderness (Diffuse moderate), normal bowel sounds. Absent: distended, guarding, rebound, rigid <Rolly Rodríguez - Last Filed: 12/21/16 12:13> Medical Decision Making - Lab Data Result diagrams: 12/21/16 09:30 12/21/16 09:30 <Damian Del Rio - Last Filed: 12/21/16 11:55> - Lab Data Result diagrams: 12/21/16 09:30 12/21/16 09:30 <Rolly Rodríguez - Last Filed: 12/21/16 12:13> - Medical Decision Making The patient was seen and examined. All diagnostics were reviewed. The case is discussed with the PA and I agree with the findings as documented. (Damian Del Rio) Patient's was offered admission to hospital states that he is him better this time and rather go to his dialysis plan. I strongly urged him that he has to go to dialysis today when he is to return his creatinine is over 13. Patient does have chronic renal failure. Patient does have some mild venous congestion of his lungs and he was aware this. Patient states that he does not want stay in the hospital and that her return if symptoms worsen. (Rolly Rodríguez) - Lab Data Lab Results 12/21/16 12/21/16 12/21/16 Range/Units 09:30 09:30 09:40 WBC 7.5 (3.8-10.6) k/uL RBC 2.76 L (4.30-5.90) m/uL Hgb 8.0 L (13.0-17.5) gm/dL Hct 25.1 L (39.0-53.0) % MCV 90.6 (80.0-100.0) fL MCH 29.1 (25.0-35.0) pg MCHC 32.1 (31.0-37.0) g/dL RDW 15.5 (11.5-15.5) % Plt Count 332 (150-450) k/uL Neutrophils % 66 % Lymphocytes % 21 % Monocytes % 6 % Eosinophils % 4 % Basophils % 1 % Neutrophils # 5.0 (1.3-7.7) k/uL Lymphocytes # 1.6 (1.0-4.8) k/uL Monocytes # 0.4 (0-1.0) k/uL Eosinophils # 0.3 (0-0.7) k/uL Basophils # 0.0 (0-0.2) k/uL Hypochromasia Slight Sodium 143 (137-145) mmol/L Potassium 4.4 (3.5-5.1) mmol/L Chloride 111 H (98-107) mmol/L Carbon Dioxide 21 L (22-30) mmol/L Anion Gap 11 mmol/L BUN 38 H (9-20) mg/dL Creatinine 13.00 H* (0.66-1.25) mg/dL Est GFR (MDRD) Af Amer 6 (>60 ml/min/1.73 sqM) Est GFR (MDRD) Non-Af 5 (>60 ml/min/1.73 sqM) Glucose 96 (74-99) mg/dL Calcium 8.5 (8.4-10.2) mg/dL Total Bilirubin 0.5 (0.2-1.3) mg/dL AST 15 L (17-59) U/L ALT 21 (21-72) U/L Alkaline Phosphatase 115 (38-126) U/L Total Protein 5.8 L (6.3-8.2) g/dL Albumin 3.0 L (3.5-5.0) g/dL Amylase 66 (30-110) U/L Lipase 26 (23-300) U/L Urine Color Light Yellow Urine Appearance Clear (Clear) Urine pH 7.0 (5.0-8.0) Ur Specific [place] 1.010 (1.001-1.035) Urine Protein 4+ H (Negative) Urine Glucose (UA) 1+ H (Negative) Urine Ketones Negative (Negative) Urine Blood Small H (Negative) Urine Nitrite Negative (Negative) Urine Bilirubin Negative (Negative) Urine Urobilinogen <2.0 (<2.0) mg/dL Ur Leukocyte Esterase Small H (Negative) Urine RBC 6 H (0-5) /hpf Urine WBC 31 H (0-5) /hpf Hyaline Casts 9 H (0-2) /lpf Acetone, Qual Negative (Negative) Disposition <Damian Del Rio - Last Filed: 12/21/16 11:55> Time of Disposition: 12:13 <Rolly Rodríguez - Last Filed: 12/21/16 12:13> Clinical Impression: Chronic renal failure, Abdominal pain, Hypertension, UTI (urinary tract infection) Disposition: HOME SELF-CARE Condition: Stable Instructions: Abdominal Pain (ED) Additional Instructions: Please return to the Emergency Department if symptoms worsen or any other concerns. Prescriptions: Ciprofloxacin HCl [Cipro] 250 mg PO Q12HR #14 tablet Referrals: Myron Bailey DO [Primary Care Provider] - 1-2 days
[2016-12-21 10:10] LABS: Non-African American GFR(MDRD) 5 (>60 ml/min/1.73 sqM)
[2016-12-21 10:23] LABS: Appearance,Urine Clear (Clear); Bilirubin,Urine Negative (Negative); Glucose,Urine (UA) 1+ (Negative); Ketones,Urine Negative (Negative); Leukocyte Esterase,Urine Small (Negative); Nitrite,Urine Negative (Negative); Particle Count 3777; Protein,Urine 4+ (Negative); RBC,Urine 6 /hpf (0-5); UA Billing (MACRO vs. MICRO) MICRO; Urobilinogen,Urine <2.0 mg/dL (<2.0); WBC,Urine 31 /hpf (0-5)
--- NOTE | 2016-12-21 10:24 | XR ---
EXAMINATION TYPE: XR chest 2V DATE OF EXAM: 12/21/2016 COMPARISON: Chest x-ray from 6 days ago. HISTORY: Chest pain. TECHNIQUE: Frontal and lateral views of the chest are obtained. FINDINGS: There is right internal jugular dual-lumen dialysis catheter with tips in SVC. There is no focal air space opacity or pneumothorax seen bilaterally. The cardiac silhouette size is upper limit s of normal with central vascular congestion felt present. Small bilateral pleural effusions are see n on lateral view with blunting of posterior costophrenic angle. The osseous structures are intact. IMPRESSION: Suspect fluid overload state similar to prior study as there is mild central vascular co ngestion and small bilateral pleural effusions redemonstrated.
[2016-12-21] MEDS ORDERED: METOCLOPRAMIDE 5 MG/ML 2 ML VIAL IVP STA (11:38)
[2016-12-21 12:02] VITALS: RESP 16
[2016-12-21 12:22] VITALS: BP 180/109; PULSE 109; TEMP 98
== END 2016-12-21 12:32 | disposition home or self-care (01) ==
LOC: EC 09:18
DX: N39.0 Urinary tract infection, site not specified (principal); R10.84 Generalized abdominal pain; E10.22 Type 1 diabetes mellitus with diabetic chronic kidney disease; I12.9 Hypertensive chronic kidney disease with stage 1 through stage 4 chronic kidney disease, or unspecified chronic kidney disease; N18.9 Chronic kidney disease, unspecified; E10.43 Type 1 diabetes mellitus with diabetic autonomic (poly)neuropathy; K31.84 Gastroparesis; K21.9 Gastro-esophageal reflux disease without esophagitis; F32.9 Major depressive disorder, single episode, unspecified; Z87.891 Personal history of nicotine dependence; Z90.49 Acquired absence of other specified parts of digestive tract; Z79.4 Long term (current) use of insulin; Z79.899 Other long term (current) drug therapy
CPT/HCPCS: 99284; 96374; 96375 ×5; 96376; 96361 ×2; 36415; 80053; 82150; 82009; 83690; 85025; 81001; 71020; J2060; J0360; J1200; J2765; J2405; J1170

== ENCOUNTER 2016-12-22 03:36 | Observation (INO) | payer OTHER ==
[~2016-12-22 03:36] MED LIST changes: +HEPARIN SODIUM,PORCINE 5,000 UNIT/ML 1 ML VIAL ONE; -LIDOCAINE 2% INJ 20 MG/ML SQ ONE
[2016-12-22] MEDS ORDERED: ONDANSETRON 4 MG/2 ML VIAL IVP STA (04:34)
[2016-12-22] MEDS ORDERED: SODIUM CHLORIDE 0.9% 1,000 ML IV STA (04:34)
[2016-12-22] MEDS ORDERED: MORPHINE SULFATE 4 MG/ML SYRINGE IV STA (04:34)
--- NOTE | 2016-12-22 04:43 | ED ---
Nausea/Vomiting/Diarrhea HPI - General Chief complaint: Nausea/Vomiting/Diarrhea Stated complaint: Nausea, Vomiting, ABD pain Time Seen by Provider: 12/22/16 03:49 Source: patient Mode of arrival: wheelchair Limitations: no limitations - History of Present Illness Initial comments: Patient is 26-year-old man with history of type 1 diabetes and previous gastroparesis who resents with recurrence of his usual symptoms, including diffuse abdominal pain and intractable vomiting. Patient states symptoms have been going on since yesterday morning. Patient has not taken his medication as he is not keeping anything down. Patient indicates his symptoms are the same as he usually gets. He indicates pain diffusely throughout the abdomen, states that it is constant, severe, aching and cramping. He has not had any relieving factors, and it is worse with vomiting. Patient has had multiple episodes of vomiting and is now not tolerating fluids. He denies change in bowel movements. No change in urination. No radiation of the pain to the testicles or scrotum. Patient noted that he did break into a sweat at one point but denies fever or chills. MD complaint: nausea, vomiting, abdominal pain Onset/Timin -: hour(s) Description of Vomiting: food contents Associated Abdominal Pain: Yes Location: diffuse Radiation: none Severity: severe Quality: cramping, aching Consistency: constant Improves with: none Worsens with: none - Related Data Home Medications Medication Instructions Recorded Confirmed Insulin Glargine [Lantus] 18 unit SQ HS 06/06/15 12/21/16 buPROPion SR [Wellbutrin SR] 150 mg PO BID 06/18/15 12/21/16 INSULIN LISPRO (HumaLOG) [humaLOG] 4 units SQ AC-TID 10/16/16 12/21/16 Lisinopril [Zestril] 20 mg PO BID 10/16/16 12/21/16 Metoclopramide HCl [Reglan] 5 mg PO TID 10/16/16 12/21/16 Ranitidine HCl [Zantac] 150 mg PO HS 10/16/16 12/21/16 Potassium Chloride ER [K-Dur 20] 20 meq PO DAILY 10/20/16 12/21/16 Ergocalciferol (Vitamin D2) 50,000 unit PO MO 10/26/16 12/21/16 [Vitamin D2] oxyCODONE-APAP 5-325MG [Percocet 1 tab PO Q4HR PRN 12/10/16 12/21/16 5-325 mg] amLODIPine [Norvasc] 10 mg PO DAILY 12/15/16 12/21/16 Previous Rx's Medication Instructions Recorded Metoprolol Tartrate [Lopressor] 100 mg PO BID #60 tab 07/16/15 Ondansetron Odt [Zofran ODT] 4 mg PO Q8HR PRN #15 tab 08/03/16 Calcium Acetate [PhosLo] 667 mg PO TID-W/MEALS #90 cap 11/21/16 Ciprofloxacin HCl [Cipro] 250 mg PO Q12HR #14 tablet 12/21/16 Allergies Allergy/AdvReac Type Severity Reaction Status Date / Time No Known Allergies Allergy Verified 12/22/16 03:47 Review of Systems ROS Statement: Those systems with pertinent positive or pertinent negative responses have been documented in the HPI. ROS Other: All systems not noted in ROS Statement are negative. Constitutional: Denies: fever, chills Respiratory: Denies: cough, dyspnea Cardiovascular: Denies: chest pain, palpitations, edema, syncope Gastrointestinal: Reports: abdominal pain, nausea, vomiting. Denies: diarrhea, constipation, melena, hematochezia Genitourinary: Denies: dysuria, hematuria Musculoskeletal: Denies: back pain Skin: Denies: rash Neurological: Denies: headache, weakness, numbness Past Medical History Past Medical History: Asthma, Diabetes Mellitus, GERD/Reflux, Hypertension, Osteoarthritis (OA), Renal Disease Additional Past Medical History / Comment(s): IDDM type I, GASTROPARESIS, gastritis, esophagitis,cyclic vomiting syndrome, DKA episodes, hiatal hernia, as child had seizure r/t high fever, pancreatits(idiopathic), chronic kidney disease stage III-hemodialysis //Saturday, L leg neuropathy, migraines. History of Any Multi-Drug Resistant Organisms: MRSA Date of last positivie culture/infection: MDRO Source:: CHIN/ Rt leg Past Surgical History: Cholecystectomy, Orthopedic Surgery, Tonsillectomy Additional Past Surgical History / Comment(s): R upper chest hemodialysis catheter, PICC line, LEFT ELBOW pinned, egd's w/ bx's last done 05-30-16.12-07-16 picc line exchange. Past Anesthesia/Blood Transfusion Reactions: No Reported Reaction Past Psychological History: ADD/ADHD, Anxiety, Depression Smoking Status: Former smoker Past Alcohol Use History: None Reported Past Drug Use History: None Reported - Past Family History Mother Family Medical History: Diabetes Mellitus Additional Family Medical History / Comment(s): heart problems-(pt not sure what they were) Father Family Medical History: Diabetes Mellitus General Exam Limitations: no limitations General appearance: alert, in distress (Patient does appear to be in distress due to abdominal pain.), obese Head exam: Present: atraumatic, normocephalic Eye exam: Present: normal appearance. Absent: scleral icterus, conjunctival injection ENT exam: Present: mucous membranes dry Neck exam: Present: normal inspection Respiratory exam: Present: respiratory distress (Mild tachypnea). Absent: wheezes, rales, rhonchi, stridor Cardiovascular Exam: Present: normal rhythm, tachycardia, systolic murmur (16 systolic ejection murmur). Absent: diastolic murmur, rubs, gallop GI/Abdominal exam: Present: soft. Absent: distended, tenderness, guarding, rebound, mass Extremities exam: Present: normal inspection, normal capillary refill. Absent: pedal edema, calf tenderness Back exam: Absent: CVA tenderness (R), CVA tenderness (L) Neurological exam: Present: alert Skin exam: Present: warm, dry, intact, normal color. Absent: rash Course Vital Signs 12/22/16 03:44 Temperature 99 F Pulse Rate 122 H Respiratory 24 Rate Blood Pressure 220/113 O2 Sat by Pulse 99 Oximetry Medical Decision Making - Lab Data Result diagrams: 12/22/16 04:00 12/22/16 04:00 Lab Results 12/22/16 12/22/16 12/22/16 Range/Units 04:00 04:00 04:00 WBC 6.6 (3.8-10.6) k/uL RBC 2.68 L (4.30-5.90) m/uL Hgb 7.4 L (13.0-17.5) gm/dL Hct 25.1 L (39.0-53.0) % MCV 93.6 (80.0-100.0) fL MCH 27.5 (25.0-35.0) pg MCHC 29.4 L (31.0-37.0) g/dL RDW 15.7 H (11.5-15.5) % Plt Count 276 (150-450) k/uL Neutrophils % 66 % Lymphocytes % 21 % Monocytes % 7 % Eosinophils % 3 % Basophils % 0 % Neutrophils # 4.4 (1.3-7.7) k/uL Lymphocytes # 1.4 (1.0-4.8) k/uL Monocytes # 0.5 (0-1.0) k/uL Eosinophils # 0.2 (0-0.7) k/uL Basophils # 0.0 (0-0.2) k/uL Hypochromasia Marked Sodium 141 (137-145) mmol/L Potassium 4.2 (3.5-5.1) mmol/L Chloride 113 H (98-107) mmol/L Carbon Dioxide 18 L (22-30) mmol/L Anion Gap 10 mmol/L BUN 37 H (9-20) mg/dL Creatinine 12.10 H* (0.66-1.25) mg/dL Est GFR (MDRD) Af Amer 6 (>60 ml/min/1.73 sqM) Est GFR (MDRD) Non-Af 5 (>60 ml/min/1.73 sqM) Glucose 111 H (74-99) mg/dL Calcium 7.8 L (8.4-10.2) mg/dL Total Bilirubin 0.3 (0.2-1.3) mg/dL AST 14 L (17-59) U/L ALT 23 (21-72) U/L Alkaline Phosphatase 108 (38-126) U/L Total Protein 5.3 L (6.3-8.2) g/dL Albumin 2.7 L (3.5-5.0) g/dL Amylase 46 (30-110) U/L Lipase 38 (23-300) U/L Acetone, Qual Negative (Negative) Disposition Clinical Impression: Gastroparesis, Nausea and vomiting in adult, Intractable abdominal pain Disposition: ADMITTED IP TO THIS [facility] Condition: Fair Referrals: Myron Bailey DO [Primary Care Provider] - 1-2 days
[2016-12-22 04:49] LABS: Basophils % (A) 0 %; CH 27.8; CHCM 29.9; Eosinophils # (A) 0.2 k/uL (0-0.7); Eosinophils % (A) 3 %; HCT 25.1 % (39.0-53.0); HDW 2.39; HGB 7.4 gm/dL (13.0-17.5); Hypochromasia Marked; Luc # (Auto) 0.15; Luc % (Auto) 2; Lymphocytes # (A) 1.4 k/uL (1.0-4.8); Lymphocytes % (A) 21 %; MCH 27.5 pg (25.0-35.0); MCHC 29.4 g/dL (31.0-37.0); MCV 93.6 fL (80.0-100.0); Monocytes # (A) 0.5 k/uL (0-1.0); Monocytes % (A) 7 %; Neutrophils # (A) 4.4 k/uL (1.3-7.7); Neutrophils % (A) 66 %; RBC 2.68 m/uL (4.30-5.90); RDW 15.7 % (11.5-15.5); WBC 6.6 k/uL (3.8-10.6); WBC (Perox) 6.61
[2016-12-22] MEDS ORDERED: HYDROmorphone 1 MG/ML 1 ML SYRINGE IVP STA ×2 (04:57→06:16)
[2016-12-22 05:04] LABS: Calcium 7.8 mg/dL (8.4-10.2); Potassium 4.2 mmol/L (3.5-5.1); Total Bilirubin 0.3 mg/dL (0.2-1.3); Total Protein 5.3 g/dL (6.3-8.2)
[2016-12-22] MEDS ORDERED: NALOXONE 0.4 MG/ML 1 ML VIAL IV PRN (07:12)
[2016-12-22] MEDS ORDERED: oxyCODONE-APAP 5-325MG 1 EACH TAB PO PRN (07:15)
[2016-12-22] MEDS ORDERED: ONDANSETRON ODT 4 MG TAB PO PRN (07:15)
[2016-12-22] MEDS ORDERED: METOCLOPRAMIDE 5 MG/ML 2 ML VIAL IVP PRN (07:18)
[2016-12-22] MEDS: SODIUM CHLORIDE 0.9% 1,000 ML IV SCH (07:28)
[2016-12-22] MEDS ORDERED: METOPROLOL TARTRATE 50 MG TAB PO STA (07:42)
[2016-12-22] MEDS ORDERED: LISINOPRIL 20 MG TAB PO STA (07:42)
[2016-12-22 08:34] LABS: Glucose,Whole Blood 108 mg/dL (75-99)
[2016-12-22] MEDS ORDERED: FAMOTIDINE 20 MG TAB PO SCH (09:00)
[2016-12-22] MEDS: buPROPion SR 150 MG TABLET.ER PO SCH ×2 (10:13→21:24)
[2016-12-22] MEDS: METOCLOPRAMIDE 5 MG TAB PO SCH ×3 (10:13→21:25)
[2016-12-22] MEDS: INSULIN LISPRO (humaLOG) 300 UNIT/3 ML VIAL SQ SCH ×5 (10:13→22:55)
[2016-12-22] MEDS: CIPROFLOXACIN HCL 250 MG TAB PO SCH ×2 (10:14→21:24)
[2016-12-22] MEDS: CALCIUM ACETATE 667 MG CAP PO SCH ×3 (10:14→18:05)
[2016-12-22] MEDS: POTASSIUM CHLORIDE ER 20 MEQ TAB.ER PO SCH (10:14)
[2016-12-22] MEDS: HYDROmorphone 1 MG/ML 1 ML SYRINGE IV PRN ×4 (10:14→21:56)
[2016-12-22] MEDS: amLODIPine 10 MG TAB PO SCH (10:14)
--- NOTE | 2016-12-22 11:12 | P.NPCON ---
History of Present Illness - Reason for Consult end stage renal disease - History of Present Illness Reason for consultation: End-stage renal disease History of present illness: Patient is a 26-year-old male seen in renal consultation for end-stage renal disease. He is maintained on hemodialysis on a Saturday schedule. Permacath. Patient has been very noncompliant with hemodialysis as an outpatient. Patient is unsure as to when his last hemodialysis treatment was. Patient believes it was last Saturday. He's had recurrent admissions for gastroparesis flare. He has a long-standing history of insulin-dependent diabetes mellitus. Denies chest pain or shortness of breath. No fever or chills. Patient states he developed abdominal pain and multiple episodes of emesis prior to admission. Feels better today but still somewhat nauseous. Blood pressures also noted to be significantly elevated with systolic blood pressure greater than 200 on admission. His most recent blood pressure was 169/ 108. Vital signs are stable. General: The patient appeared well nourished and normally developed. HEENT: Head exam is unremarkable. Neck is without jugular venous distension. LUNGS: Lungs are clear to auscultation and percussion. Breath sounds decreased. HEART: Rate and Rhythm are regular. First and second heart sounds normal. No murmurs, rubs or gallops. ABDOMEN: Abdominal exam reveals normal bowel sounds. Non-tender and non- distended. EXTREMITITES: No clubbing, cyanosis, or edema. Past Medical History Past Medical History: Asthma, Diabetes Mellitus, GERD/Reflux, Hypertension, Osteoarthritis (OA), Renal Disease Additional Past Medical History / Comment(s): IDDM type I, GASTROPARESIS, gastritis, esophagitis,cyclic vomiting syndrome, DKA episodes, hiatal hernia, as child had seizure r/t high fever, pancreatits(idiopathic), chronic kidney disease stage III-hemodialysis //Saturday, L leg neuropathy, migraines. History of Any Multi-Drug Resistant Organisms: MRSA Date of last positivie culture/infection: MDRO Source:: CHIN/ Rt leg Past Surgical History: Cholecystectomy, Orthopedic Surgery, Tonsillectomy Additional Past Surgical History / Comment(s): R upper chest hemodialysis catheter, PICC line, LEFT ELBOW pinned, egd's w/ bx's last done 05-30-16.12-07-16 picc line exchange. Past Anesthesia/Blood Transfusion Reactions: No Reported Reaction Past Psychological History: ADD/ADHD, Anxiety, Depression Smoking Status: Former smoker Past Alcohol Use History: None Reported Past Drug Use History: None Reported - Past Family History Mother Family Medical History: Diabetes Mellitus Additional Family Medical History / Comment(s): heart problems-(pt not sure what they were) Father Family Medical History: Diabetes Mellitus Medications and Allergies Home Medications Medication Instructions Recorded Confirmed Type Insulin Glargine [Lantus] 18 unit SQ HS 06/06/15 12/22/16 History buPROPion SR [Wellbutrin SR] 150 mg PO BID 06/18/15 12/22/16 History INSULIN LISPRO (HumaLOG) [humaLOG] 4 units SQ AC-TID 10/16/16 12/22/16 History Lisinopril [Zestril] 20 mg PO BID 10/16/16 12/22/16 History Metoclopramide HCl [Reglan] 5 mg PO TID 10/16/16 12/22/16 History Ranitidine HCl [Zantac] 150 mg PO HS 10/16/16 12/22/16 History Potassium Chloride ER [K-Dur 20] 20 meq PO DAILY 10/20/16 12/22/16 History Ergocalciferol (Vitamin D2) 50,000 unit PO MO 10/26/16 12/22/16 History [Vitamin D2] oxyCODONE-APAP 5-325MG [Percocet 1 tab PO Q4HR PRN 12/10/16 12/22/16 History 5-325 mg] amLODIPine [Norvasc] 10 mg PO DAILY 12/15/16 12/22/16 History Allergies Allergy/AdvReac Type Severity Reaction Status Date / Time No Known Allergies Allergy Verified 12/22/16 03:47 Physical Exam Vitals: Vital Signs Temp Pulse Pulse Resp BP BP Pulse Ox 12/22/16 09:29 97.9 F 111 H 18 169/108 95 12/22/16 08:20 189/90 12/22/16 07:31 98.8 F 100 18 192/94 95 12/22/16 03:44 99 F 122 H 24 220/113 99 Intake and Output 12/21/16 12/22/16 12/22/16 22:59 06:59 14:59 Other: Weight 113.398 kg Results - Lab Results Most recent lab results Calcium 7.8 mg/dL (8.4-10.2) L 12/22/16 04:00 12/22/16 04:00 12/22/16 04:00 Assessment and Plan Plan: Assessment: #1. End-stage renal disease maintained on hemodialysis on a Saturday schedule via permacath. #2. Noncompliance with hemodialysis treatments as an outpatient. #3. Abdominal pain with nausea and vomiting likely due to diabetic gastroparesis. #4. Hypertension with chronic kidney disease. Uncontrolled. Partially volume sensitive and also related to gastroparesis flare. #5. Chronic kidney disease mineral bone disease. #6. Anemia of chronic kidney disease. Rule out iron deficiency. Plan: Hemodialysis today with goal 3-4 L ultrafiltration. Resume home antihypertensives. Add hydralazine 10 mg every 4 hours as needed for systolic blood pressure greater than 160. Maintain PhosLo with meals. Check phosphorus level. Check iron studies. Start Aranesp. Maintain anti-emetics. Advance diet as tolerated. Thank you for the consultation. I will continue to follow the patient with you during his hospital stay.
[2016-12-22] MEDS ORDERED: hydrALAZINE HCL 20 MG/ML 1 ML VIAL IVP PRN (11:26)
[2016-12-22 11:50] LABS: % Iron Saturation 9.8 % (20-50)
[2016-12-22] MEDS ORDERED: DARBEPOETIN ALFA 40 MCG/0.4 ML SYRINGE SQ SCH (12:00)
[2016-12-22 12:31] LABS: Glucose,Whole Blood 96 mg/dL (75-99)
[2016-12-22] MEDS: ONDANSETRON 4 MG/2 ML VIAL IVP PRN (14:08)
[2016-12-22] MEDS ORDERED: ALPRAZolam 0.25 MG TAB PO PRN (14:54)
[2016-12-22] MEDS ORDERED: TEMAZEPAM 15 MG CAP PO PRN (14:54)
[2016-12-22 16:58] LABS: Glucose,Whole Blood 99 mg/dL (75-99)
--- NOTE | 2016-12-22 18:57 | HP ---
DATE OF ADMISSION: 12/22/2016 CHIEF COMPLAINT: Nausea, vomiting, abdominal pain. HISTORY OF PRESENT ILLNESS: This 26-year-old gentleman with a past medical history of multiple medical problems including history of asthma, diabetes mellitus, gastroesophageal reflux disease, hypertension, history of DJD, history of renal disease, history of gastroparesis, gastritis, history of cholecystectomy, ADHD, anxiety, depression, being followed by Dr. Ronna Bailey in the outpatient setting was admitted to [facility] with complaints of abdominal pain. The patient had severe abdominal pain felt in the anterior part of the chest associated with some vomiting and the patient had of symptoms. There is no history of fever, rigors or chills. No history of headache, loss of consciousness or seizures. The patient unable to keep anything down. The pain was more in the epigastrium but subsequently diffuse in character, constant severe aching and cramping according to him. There is no history of headache, loss of consciousness, hematochezia, melena at this time. PAST MEDICAL HISTORY: History of diabetic gastroparesis, history of asthma, diabetes type 1, GERD, hypertension, DJD, history of renal disease, cholecystectomy, ADHD/ADD, history of anxiety/depression. HOME MEDICATIONS: Prior to admission home medications are: 1. Oxycodone 5 mg q.4 p.r.n. 2. Zofran 4 mg q.8 p.r.n. 3. Wellbutrin SR 150 mg p.o. b.i.d. 4. Norvasc 10 mg p.o. daily. 5. Zantac 150 mg q.h.s. 6. K-Dur 20 meq p.o. daily. 7. Lopressor 100 milligrams p.o. b.i.d. 8. Reglan 5 mg p.o. t.i.d. 9. Zestril 20 mg p.o. b.i.d. 10. Lantus 18 units subcu q.h.s. 11. Humalog 40 units a.c. t.i.d. 12. Vitamin B12 50,000 p.o. Saturday. 13. Cipro 250 mg p.o. b.i.d. 14. PhosLo 667 t.i.d. with meals. ALLERGIES: None. FAMILY HISTORY: History of diabetes and heart problems in the family. SOCIAL HISTORY: Previous history of smoking. No history of alcohol intake. REVIEW OF SYSTEMS: ENT: No diminishing hearing. No diminished hearing. CARDIOVASCULAR SYSTEM: No angina or palpitations. RESPIRATORY: No cough. GI: No nausea. : As mentioned earlier. CENTRAL NERVOUS SYSTEM: No numbness or weakness. ALLERGY/IMMUNOLOGY: No asthma or hayfever. MUSCULOSKELETAL: As mentioned earlier. HEMATOLOGY/ONCOLOGY: No history of anemia. ENDOCRINE: As mentioned earlier. CONSTITUTIONAL: As mentioned earlier. DERMATOLOGY: Negative. RHEUMATOLOGY: Negative. PSYCHIATRY: As mentioned earlier. PHYSICAL EXAMINATION: The patient is alert and oriented times three. Pulse 111, blood pressure ntd, respirations 18, temperature 97 degrees, pulse ox 94% on room air. HEENT: Conjunctivae normal. NECK: No jugular venous distention. CARDIOVASCULAR: S1, S2 muffled. RESPIRATORY: Breath sounds diminished at the bases. A few scattered rhonchi and crackles. ABDOMEN: Soft, obese, mild diffuse tenderness in the epigastrium. No guarding or rigidity. No mass palpable. Bowel sounds present. LEGS: No edema. No swelling. CENTRAL NERVOUS SYSTEM: Higher functions as mentioned earlier. Moves all four limbs. No focal deficits. LYMPHATICS: No lymph nodes palpable in the neck, axillae or groin. SKIN: No ulcer, rash or bleeding. Labs at this time shows WBC 6.5, hemoglobin 7.4. Creatinine is 12.10. Other labs are noted. ASSESSMENT: 1. Intractable abdominal pain, vomiting, and inability to keep anything down with acute gastroparesis, acute exacerbation. 2. Anemia, normocytic anemia of chronic disease. 3. Chronic kidney disease, stage V on hemodialysis. 4. Creatinine of 12.10. 5. Decreased CO2. 6. Diabetes mellitus type I. 7. Mild hypocalcemia. 8. Mild hypoalbuminemia with mild to moderate protein malnutrition. 9. Obesity, body mass index of 39.8. 10. History of asthma, chronic intermittent. 11. History of diabetes type 1. 12. History of gastroesophageal reflux disease. 13. Hypertension, essential. 14. History of degenerative joint disease. 15. Hypertensive urgency, present on admission. 16. History of gastritis and esophagitis and cyclic vomiting syndrome. 17. History of diabetic ketoacidosis episodes. 18. Seizure disorder as a child. 19. History of pancreatitis. 20. History of Methicillin-resistant Staph aureus. 21. History of degenerative joint disease. 22. History of attention deficit disorder/ attention deficit hyperactivity disorder. 23. History of anxiety, depression, not otherwise specified. 24. Remote history of nicotine dependence. 25. FULL CODE. RECOMMENDATIONS AND DISCUSSION: In this 26-year-old gentleman who presented with multiple complex medical issues as mentioned earlier. At this time we will monitor the patient closely. IV Protonix. symptomatic treatment. Otherwise, advance diet as tolerated. Also recommend pain medications. Monitor blood sugar closely. Guarded prognosis because of multiple complex medical issues. Further recommendations to follow. Hemodialysis. She orders for details. FRANCISCO J
[2016-12-22 20:19] LABS: Hemoglobin A1C 5.8 % (4.2-6.1)
[2016-12-22 20:31] LABS: Glucose,Whole Blood 101 mg/dL (75-99)
[2016-12-22] MEDS ORDERED: NON-FORMULARY DRUG (Ranitidine Hcl [Zantac] 150 MG) PO SCH (21:00)
[2016-12-22] MEDS: LISINOPRIL 20 MG TAB PO SCH (21:25)
[2016-12-22] MEDS: METOPROLOL TARTRATE 50 MG TAB PO SCH (21:25)
[2016-12-22] MEDS: INSULIN GLARGINE 100 UNIT/ML 10 ML VIAL SQ SCH (21:28)
[2016-12-22] MEDS: PANTOPRAZOLE 40 MG/10 ML VIAL IVP SCH (21:28)
[2016-12-23] MEDS: hydrALAZINE HCL 20 MG/ML 1 ML VIAL IVP PRN (01:38)
[2016-12-23] MEDS: HYDROmorphone 1 MG/ML 1 ML SYRINGE IV PRN ×3 (02:11→21:20)
[2016-12-23 07:10] LABS: Glucose,Whole Blood 110 mg/dL (75-99)
[2016-12-23] MEDS ORDERED: METOPROLOL TARTRATE 50 MG TAB ONE (09:00)
[2016-12-23] MEDS ORDERED: POTASSIUM CHLORIDE ER 20 MEQ TAB.ER PO ONE (09:00)
[2016-12-23] MEDS ORDERED: buPROPion SR 150 MG TABLET.ER PO ONE (09:00)
[2016-12-23] MEDS ORDERED: CALCIUM ACETATE 667 MG CAP ONE (09:00)
[2016-12-23] MEDS ORDERED: PANTOPRAZOLE 40 MG/10 ML VIAL ONE (09:00)
[2016-12-23] MEDS ORDERED: amLODIPine 10 MG TAB ONE (09:00)
[2016-12-23] MEDS ORDERED: HYDROmorphone 1 MG/ML 1 ML SYRINGE ONE (09:00)
[2016-12-23] MEDS ORDERED: METOCLOPRAMIDE 5 MG TAB ONE (09:00)
[2016-12-23] MEDS ORDERED: CIPROFLOXACIN HCL 250 MG TAB ONE (09:00)
[2016-12-23] MEDS ORDERED: LISINOPRIL 20 MG TAB ONE (09:00)
[2016-12-23 09:04] LABS: Appearance,Urine Cloudy (Clear); Bacteria,Urine Rare /hpf; Bilirubin,Urine Negative (Negative); Glucose,Urine (UA) 2+ (Negative); Ketones,Urine Negative (Negative); Leukocyte Esterase,Urine Small (Negative); Nitrite,Urine Negative (Negative); PH, Urine 6.5 (5.0-8.0); Particle Count 5351; Protein,Urine 4+ (Negative); RBC,Urine 5 /hpf (0-5); Specific Gravity,Urine 1.014 (1.001-1.035); UA Billing (MACRO vs. MICRO) MICRO; Urobilinogen,Urine <2.0 mg/dL (<2.0); WBC,Urine 57 /hpf (0-5)
[2016-12-23] MEDS: CALCIUM ACETATE 667 MG CAP PO SCH ×3 (10:30→17:22)
[2016-12-23] MEDS: SODIUM CHLORIDE 0.9% 1,000 ML IV SCH (10:30)
[2016-12-23] MEDS: INSULIN LISPRO (humaLOG) 300 UNIT/3 ML VIAL SQ SCH ×7 (10:30→21:21)
[2016-12-23] MEDS: METOCLOPRAMIDE 5 MG TAB PO SCH ×3 (10:31→21:23)
[2016-12-23] MEDS: CIPROFLOXACIN HCL 250 MG TAB PO SCH (10:31)
[2016-12-23] MEDS: amLODIPine 10 MG TAB PO SCH (10:31)
[2016-12-23] MEDS: METOPROLOL TARTRATE 50 MG TAB PO SCH ×2 (10:31→21:22)
[2016-12-23] MEDS: buPROPion SR 150 MG TABLET.ER PO SCH ×2 (10:31→21:21)
[2016-12-23] MEDS: PANTOPRAZOLE 40 MG/10 ML VIAL IVP SCH ×2 (10:31→21:22)
[2016-12-23] MEDS: LISINOPRIL 20 MG TAB PO SCH ×2 (10:31→21:22)
[2016-12-23] MEDS: POTASSIUM CHLORIDE ER 20 MEQ TAB.ER PO SCH (10:32)
[2016-12-23 10:56] LABS: Basophils % (A) 1 %; CH 27.8; CHCM 29.9; Eosinophils # (A) 0.3 k/uL (0-0.7); Eosinophils % (A) 5 %; HCT 25.4 % (39.0-53.0); HGB 7.6 gm/dL (13.0-17.5); Hypochromasia Marked; Luc # (Auto) 0.13; Luc % (Auto) 2; Lymphocytes # (A) 1.2 k/uL (1.0-4.8); Lymphocytes % (A) 21 %; MCH 27.9 pg (25.0-35.0); MCHC 29.9 g/dL (31.0-37.0); MCV 93.4 fL (80.0-100.0); Monocytes # (A) 0.3 k/uL (0-1.0); Monocytes % (A) 6 %; Neutrophils # (A) 3.8 k/uL (1.3-7.7); Neutrophils % (A) 65 %; RBC 2.72 m/uL (4.30-5.90); RDW 15.4 % (11.5-15.5); WBC 5.8 k/uL (3.8-10.6); WBC (Perox) 5.71
[2016-12-23 11:09] LABS: Calcium 8.3 mg/dL (8.4-10.2); Phosphorous 4.7 mg/dL (2.5-4.5); Potassium 4.2 mmol/L (3.5-5.1)
--- NOTE | 2016-12-23 11:10 | P.PN ---
Subjective Patient is seen in follow-up for end-stage renal disease. He is maintained on hemodialysis on a Saturday schedule. Permacath. Patient has been very noncompliant with hemodialysis treatments as an outpatient. Patient presented with abdominal pain along with nausea and vomiting. Patient did have dinner last night and tolerated it well. Abdominal pain is improved. He underwent hemodialysis yesterday without any issues. Vital signs are stable. General: The patient appeared well nourished and normally developed. HEENT: Head exam is unremarkable. Neck is without jugular venous distension. LUNGS: Lungs are clear to auscultation and percussion. Breath sounds decreased. HEART: Rate and Rhythm are regular. First and second heart sounds normal. No murmurs, rubs or gallops. ABDOMEN: Abdominal exam reveals normal bowel sounds. Non-tender and non- distended. No evidence of peritonitis. EXTREMITITES: No clubbing, cyanosis, or edema. Objective - Vital Signs Vital signs: Vital Signs Temp 99.0 F 12/23/16 07:00 Pulse 96 12/23/16 07:00 Resp 20 12/23/16 07:00 BP 147/95 12/23/16 07:00 Pulse Ox 94 L 12/23/16 07:00 Intake & Output 12/22/16 12/23/16 12/23/16 18:59 06:59 18:59 Output Total 0 Balance 0 Weight 119 kg Output: Urine 0 Other: # Voids 0 0 # Bowel Movements 0 - Labs CBC & Chem 7: 12/22/16 04:00 12/22/16 04:00 Labs: Abnormal Lab Results - Last 24 Hours (Table) 12/22/16 12/22/16 12/23/16 Range/Units 04:00 20:29 07:06 POC Glucose (mg/dL) 101 H 110 H (75-99) mg/dL Iron 20 L (49-181) ug/dL TIBC 204 L (261-462) ug/dL % Saturation 9.8 L (20-50) % Urine Protein (Negative) Urine Glucose (UA) (Negative) Urine Blood (Negative) Ur Leukocyte Esterase (Negative) Urine WBC (0-5) /hpf Urine Bacteria (None) /hpf Hyaline Casts (0-2) /lpf 12/23/16 Range/Units 08:19 POC Glucose (mg/dL) (75-99) mg/dL Iron (49-181) ug/dL TIBC (261-462) ug/dL % Saturation (20-50) % Urine Protein 4+ H (Negative) Urine Glucose (UA) 2+ H (Negative) Urine Blood Small H (Negative) Ur Leukocyte Esterase Small H (Negative) Urine WBC 57 H (0-5) /hpf Urine Bacteria Rare H (None) /hpf Hyaline Casts 8 H (0-2) /lpf Assessment and Plan Plan: Assessment: #1. End-stage renal disease maintained on hemodialysis on a Saturday schedule via permacath. #2. Noncompliance with hemodialysis treatments as an outpatient. #3. Abdominal pain with nausea and vomiting likely due to diabetic gastroparesis. #4. Hypertension with chronic kidney disease. Uncontrolled. Partially volume sensitive and also related to gastroparesis flare. Improved today. #5. Chronic kidney disease mineral bone disease. #6. Anemia of chronic kidney disease. Iron deficiency noted. Plan: Hemodialysis tomorrow with goal 3-4 L ultrafiltration. Ferrlecit IV 125 mg daily for 3 days. First dose today. Maintain PhosLo with meals. Check phosphorus level. Maintain Aranesp. Maintain anti-emetics. Encouraged oral intake. I strongly advised him to be compliant with hemodialysis treatments as an outpatient. Anticipate discharge soon.
[2016-12-23 11:52] LABS: Glucose,Whole Blood 143 mg/dL (75-99)
[2016-12-23] MEDS: SODIUM FERRIC GLUCONAT-SUCROSE 125 MG in SODIUM CHLORIDE 0.9% 100 ML IVPB SCH (13:48)
[2016-12-23 16:54] LABS: Glucose,Whole Blood 70 mg/dL (75-99)
[2016-12-23] MEDS: INSULIN GLARGINE 100 UNIT/ML 10 ML VIAL SQ SCH ×2 (21:22→21:30)
[2016-12-23 21:33] LABS: Glucose,Whole Blood 114 mg/dL (75-99)
[2016-12-24] MEDS: HYDROmorphone 1 MG/ML 1 ML SYRINGE IV PRN ×6 (01:29→22:06)
--- NOTE | 2016-12-24 07:16 | PN ---
DATE OF SERVICE: 12/23/2016 This 26-year-old gentleman who was admitted with acute diabetic gastroparesis, acute exacerbation also significant history of noncompliance, also. No chest pain or palpitations. The patient missed several hemodialysis. On exam, alert and oriented x3. Pulse 91, blood pressure 132/78, respirations 20, temperature 99.9, pulse ox 93% on room air. HEENT: Conjunctivae normal. NECK: No jugular venous distention. CARDIOVASCULAR: S1 and S2, muffled. RESPIRATORY: Breath sounds diminished at the bases. No rhonchi, no crackles. ABDOMEN: Soft, mild diffuse discomfort. LEGS: No edema, no swelling. NERVOUS SYSTEM: No focal deficits. LABS: WBC 5.8, hemoglobin 7.6. Creatinine is 9.99. UA shows 57 WBCs. ASSESSMENT: 1. Intractable abdominal pain, vomiting, inability to keep anything down with acute gastroparesis acute exacerbation. 2. Anemia, normocytic anemia of chronic disease. 3. Urinary tract infection, acute, present on admission. 4. Chronic kidney disease, stage V on hemodialysis. 5. Creatinine 12.10. 6. Decreased CO2. 7. Diabetes mellitus, type 1. 8. History of noncompliance. 9. Mild hypocalcemia. 10. Mild hypoalbuminemia with mild to moderate protein calorie malnutrition. 11. Obesity, body mass index 39.8. 12. History of asthma, chronic, intermittent. 13. History of gastroesophageal reflux disease. 14. Hypertension, essential, history. 15. History of degenerative joint disease. 16. Hypertensive urgency, present on admission. 17. History of gastritis and esophagitis and cyclic vomiting syndrome. 18. History of diabetic ketoacidosis episodes. 19. Seizure disorder as a child. 20. History of pancreatitis. 21. History of methicillin-resistant Staphylococcus aureus. 22. History of degenerative joint disease. 23. History of attention deficit disorder, attention deficit hyperactivity disorder. 24. History of anxiety, depression, not otherwise specified. 25. Remote history of nicotine dependence. 26. FULL CODE. RECOMMENDATIONS AND DISCUSSION: Recommend to continue the current medications. Continue symptomatic treatment. At this time I would recommend to continue with current medications and also recommend Rocephin for UTI and urine culture may be obtained. Closely follow. Further recommendations to follow.
[2016-12-24 07:36] LABS: Glucose,Whole Blood 89 mg/dL (75-99)
[2016-12-24 07:36] LABS: Basophils % (A) 1 %; CH 27.9; CHCM 29.7; Eosinophils # (A) 0.3 k/uL (0-0.7); Eosinophils % (A) 5 %; HCT 26.3 % (39.0-53.0); HDW 2.51; HGB 7.9 gm/dL (13.0-17.5); Hypochromasia Marked; Luc # (Auto) 0.18; Luc % (Auto) 3; Lymphocytes # (A) 1.4 k/uL (1.0-4.8); Lymphocytes % (A) 24 %; MCH 28.3 pg (25.0-35.0); MCHC 29.9 g/dL (31.0-37.0); MCV 94.5 fL (80.0-100.0); Mean Platelet Volume 7.3; Monocytes # (A) 0.4 k/uL (0-1.0); Monocytes % (A) 7 %; Neutrophils # (A) 3.5 k/uL (1.3-7.7); Neutrophils % (A) 60 %; RBC 2.79 m/uL (4.30-5.90); RDW 15.3 % (11.5-15.5); WBC 5.8 k/uL (3.8-10.6)
[2016-12-24 08:01] LABS: Calcium 8.8 mg/dL (8.4-10.2); Potassium 4.4 mmol/L (3.5-5.1)
[2016-12-24] MEDS: buPROPion SR 150 MG TABLET.ER PO SCH ×2 (08:02→21:24)
[2016-12-24] MEDS: LISINOPRIL 20 MG TAB PO SCH ×2 (08:03→21:25)
[2016-12-24] MEDS: METOPROLOL TARTRATE 50 MG TAB PO SCH ×2 (08:03→21:25)
[2016-12-24] MEDS: CALCIUM ACETATE 667 MG CAP PO SCH ×3 (08:03→17:52)
[2016-12-24] MEDS: METOCLOPRAMIDE 5 MG TAB PO SCH ×3 (08:03→21:25)
[2016-12-24] MEDS: POTASSIUM CHLORIDE ER 20 MEQ TAB.ER PO SCH (08:03)
[2016-12-24] MEDS: amLODIPine 10 MG TAB PO SCH (08:03)
[2016-12-24] MEDS: INSULIN LISPRO (humaLOG) 300 UNIT/3 ML VIAL SQ SCH ×7 (08:04→21:22)
[2016-12-24] MEDS: PANTOPRAZOLE 40 MG/10 ML VIAL IVP SCH ×2 (08:04→21:24)
[2016-12-24] MEDS: SODIUM CHLORIDE 0.9% 1,000 ML IV SCH (10:00)
[2016-12-24 11:41] LABS: Glucose,Whole Blood 104 mg/dL (75-99)
[2016-12-24] MEDS ORDERED: ERGOCALCIFEROL 50,000 UNIT CAP PO SCH (12:00)
[2016-12-24] MEDS: hydrALAZINE HCL 20 MG/ML 1 ML VIAL IVP PRN (13:02)
[2016-12-24] MEDS: SODIUM FERRIC GLUCONAT-SUCROSE 125 MG in SODIUM CHLORIDE 0.9% 100 ML IVPB SCH (14:18)
[2016-12-24] MEDS ORDERED: HEPARIN SODIUM,PORCINE 5,000 UNIT/ML 1 ML VIAL ONE (14:35)
--- NOTE | 2016-12-24 15:13 | P.PN ---
Subjective Date of service 12/24/2016. Progress note being dictated for Dr. Fontenot. Interval history: This a 26-year-old gentleman admitted with acute diabetic gastroparesis, anemia, acute UTI in a patient with history of CKD with noncompliance of hemodialysis and multiple other medical issues. Maintained on Rocephin, hemodialysis with significant clinical improvement. Received hydralazine, unable to tolerate full hemodialysis session today due to hypertension and dialysis discontinued early. Scheduled for repeat hemodialysis tomorrow. Denies chest pain, palpitations or increasing shortness of breath. Abdominal pain currently controlled. Objective - Vital Signs Vital signs: Vital Signs Temp 97.5 F L 12/24/16 07:00 Pulse 88 12/24/16 07:00 Resp 16 12/24/16 08:00 BP 192/110 12/24/16 14:23 Pulse Ox 95 12/24/16 07:00 Intake & Output 12/23/16 12/24/16 12/24/16 18:59 06:59 18:59 Intake Total 200 100 Balance 200 100 Weight 119.5 kg Intake: Oral 200 100 Other: Voiding Method Toilet Toilet Urinal Urinal # Voids 1 1 # Bowel Movements 0 - Exam PHYSICAL EXAM: VITAL SIGNS: As above GENERAL: [Sitting up in bed, no acute distress] HEENT: [Pupils equal conjunctiva normal.] NECK: [Supple, no JVD] RESPIRATORY EFFORT:[ Normal] LUNGS: [Bilateral bases diminished, no wheezes rhonchi or crackles] CARDIOVASCULAR[ regular S1 and S2, no murmurs rubs or gallops, no edema] GI: [Abdomen soft, mild diffuse tenderness, positive bowel sounds. No guarding , no rigidity] PSYCH: [Alert and oriented -3, mood and affect normal.] NEURO: No focal deficits - Labs CBC & Chem 7: 12/24/16 07:15 12/24/16 07:15 Labs: Abnormal Lab Results - Last 24 Hours (Table) 12/23/16 12/23/16 12/24/16 Range/Units 16:52 21:13 07:15 RBC 2.79 L (4.30-5.90) m/uL Hgb 7.9 L (13.0-17.5) gm/dL Hct 26.3 L (39.0-53.0) % MCHC 29.9 L (31.0-37.0) g/dL Chloride (98-107) mmol/L BUN (9-20) mg/dL Creatinine (0.66-1.25) mg/dL POC Glucose (mg/dL) 70 L 114 H (75-99) mg/dL 12/24/16 12/24/16 Range/Units 07:15 11:39 RBC (4.30-5.90) m/uL Hgb (13.0-17.5) gm/dL Hct (39.0-53.0) % MCHC (31.0-37.0) g/dL Chloride 108 H (98-107) mmol/L BUN 29 H (9-20) mg/dL Creatinine 10.73 H* (0.66-1.25) mg/dL POC Glucose (mg/dL) 104 H (75-99) mg/dL Microbiology - Last 24 Hours (Table) 12/24/16 07:45 Urine Culture - Preliminary Urine,Voided Assessment and Plan Plan: 1. Intractable abdominal pain, vomiting; acute diabetic gastroparesis exacerbation 2. [ Anemia, normocytic of chronic disease]. 3. [ Acute UTI, present on admission]. 4. [ Chronic kidney disease, endstage on hemodialysis]. 5. [ Creatinine 12.1]. 6. [ Decreased CO2]. 7. [ Significant history of noncompliance]. 8. Mild hypocalcemia 9. Mild hypoalbuminemia with mild to moderate protein calorie malnutrition 10. Morbid Obesity, BMI 41.3 11. Chronic intermittent asthma 12. Gastroesophageal reflux disease 13. Essential hypertension, history of 14. Degenerative joint disease 15. Hypertensive urgency, present on admission 16. History of gastritis, esophagitis and cyclic vomiting syndrome 17. History of DKA episodes 18. Seizure disorder as a child 19. History of pancreatitis 20. History of MRSA 21. Attention deficit hyperactivity disorder 22. History of anxiety, depression, not otherwise specified 23. Remote history of nicotine dependence Plan: Continue on current medication regime, antibiotics, monitoring and symptomatic treatment. Scheduled for another hemodialysis session tomorrow with discharge planning in progress after dialysis. Further recommendations to follow. The impression and plan of care has been dictated as directed. : I performed a H&P examination of this patient and discussed the same with the dictator. I agree with the dictator's note. Any additional findings/opinions/ etc. will be noted.
[2016-12-24 17:32] LABS: Glucose,Whole Blood 124 mg/dL (75-99)
--- NOTE | 2016-12-24 19:04 | PN ---
DATE OF SERVICE: 12/24/2016 This 26-year-old gentleman admitted with acute gastroesophageal reflux disease acute exacerbation, still complaining of abdominal discomfort. Seen and evaluated the patient along with the nurse practitioner. Please refer to the nurse practitioner notes and impression documented for further information.
[2016-12-24 20:36] LABS: Glucose,Whole Blood 106 mg/dL (75-99)
[2016-12-24] MEDS: INSULIN GLARGINE 100 UNIT/ML 10 ML VIAL SQ SCH (21:21)
[2016-12-24 23:01] VITALS: RESP 18
[2016-12-25] MEDS: HYDROmorphone 1 MG/ML 1 ML SYRINGE IV PRN ×3 (02:40→11:07)
[2016-12-25] MEDS: ONDANSETRON 4 MG/2 ML VIAL IVP PRN (02:43)
[2016-12-25 06:41] LABS: Basophils % (A) 1 %; CH 27.6; CHCM 29.9; Eosinophils # (A) 0.3 k/uL (0-0.7); Eosinophils % (A) 6 %; HCT 26.3 % (39.0-53.0); HDW 2.55; HGB 7.9 gm/dL (13.0-17.5); Hypochromasia Marked; Luc # (Auto) 0.17; Luc % (Auto) 3; Lymphocytes # (A) 1.4 k/uL (1.0-4.8); Lymphocytes % (A) 25 %; MCH 27.9 pg (25.0-35.0); Mean Platelet Volume 6.8; Monocytes # (A) 0.5 k/uL (0-1.0); Monocytes % (A) 8 %; Neutrophils # (A) 3.2 k/uL (1.3-7.7); Neutrophils % (A) 57 %; RBC 2.82 m/uL (4.30-5.90); RDW 15.5 % (11.5-15.5); WBC 5.6 k/uL (3.8-10.6); WBC (Perox) 5.84
[2016-12-25 06:55] LABS: Calcium 8.7 mg/dL (8.4-10.2); Potassium 4.4 mmol/L (3.5-5.1)
[2016-12-25 07:19] LABS: Glucose,Whole Blood 124 mg/dL (75-99)
[2016-12-25] MEDS: INSULIN LISPRO (humaLOG) 300 UNIT/3 ML VIAL SQ SCH ×4 (07:25→13:03)
[2016-12-25 07:50] VITALS: BP 137/86; PULSE 87; TEMP 98
[2016-12-25] MEDS: METOPROLOL TARTRATE 50 MG TAB PO SCH (08:30)
[2016-12-25] MEDS: CALCIUM ACETATE 667 MG CAP PO SCH ×2 (08:30→13:15)
[2016-12-25] MEDS: PANTOPRAZOLE 40 MG/10 ML VIAL IVP SCH (08:30)
[2016-12-25] MEDS: amLODIPine 10 MG TAB PO SCH (08:31)
[2016-12-25] MEDS: buPROPion SR 150 MG TABLET.ER PO SCH (08:31)
[2016-12-25] MEDS: METOCLOPRAMIDE 5 MG TAB PO SCH (08:31)
[2016-12-25] MEDS: POTASSIUM CHLORIDE ER 20 MEQ TAB.ER PO SCH (08:31)
[2016-12-25] MEDS: LISINOPRIL 20 MG TAB PO SCH (08:31)
[2016-12-25] MEDS: SODIUM CHLORIDE 0.9% 1,000 ML IV SCH (08:33)
[2016-12-25] MEDS: SODIUM FERRIC GLUCONAT-SUCROSE 125 MG in SODIUM CHLORIDE 0.9% 100 ML IVPB SCH (11:07)
--- NOTE | 2016-12-25 11:21 | P.PN ---
Subjective Patient is seen in follow-up for end-stage renal disease. He is maintained on hemodialysis on a Saturday schedule. Permacath. Patient has been very noncompliant with hemodialysis treatments as an outpatient. Patient presented with abdominal pain along with nausea and vomiting. Patient did have dinner last night and tolerated it well. Abdominal pain is improved. He underwent hemodialysis yesterday for about 2 hours as he was quite nauseous. Vital signs are stable. General: The patient appeared well nourished and normally developed. HEENT: Head exam is unremarkable. Neck is without jugular venous distension. LUNGS: Lungs are clear to auscultation and percussion. Breath sounds decreased. HEART: Rate and Rhythm are regular. First and second heart sounds normal. No murmurs, rubs or gallops. ABDOMEN: Abdominal exam reveals normal bowel sounds. Non-tender and non- distended. No evidence of peritonitis. EXTREMITITES: No clubbing, cyanosis, or edema. Objective - Vital Signs Vital signs: Vital Signs Temp 98.0 F 12/25/16 07:00 Pulse 87 12/25/16 09:00 Resp 18 12/25/16 09:00 BP 137/86 12/25/16 07:00 Pulse Ox 96 12/25/16 07:00 Intake & Output 12/24/16 12/25/16 12/25/16 18:59 06:59 18:59 Intake Total 400 400 Balance 400 400 Weight 117 kg Intake: Oral 400 400 Other: Voiding Method Toilet Toilet Toilet Urinal Urinal Urinal # Voids 1 1 - Labs CBC & Chem 7: 12/25/16 06:10 12/25/16 06:10 Labs: Abnormal Lab Results - Last 24 Hours (Table) 12/24/16 12/24/16 12/24/16 Range/Units 11:39 17:26 20:35 RBC (4.30-5.90) m/uL Hgb (13.0-17.5) gm/dL Hct (39.0-53.0) % MCHC (31.0-37.0) g/dL BUN (9-20) mg/dL Creatinine (0.66-1.25) mg/dL Glucose (74-99) mg/dL POC Glucose (mg/dL) 104 H 124 H 106 H (75-99) mg/dL 12/25/16 12/25/16 12/25/16 Range/Units 06:10 06:10 07:09 RBC 2.82 L (4.30-5.90) m/uL Hgb 7.9 L (13.0-17.5) gm/dL Hct 26.3 L (39.0-53.0) % MCHC 30.0 L (31.0-37.0) g/dL BUN 22 H (9-20) mg/dL Creatinine 8.90 H* (0.66-1.25) mg/dL Glucose 107 H (74-99) mg/dL POC Glucose (mg/dL) 124 H (75-99) mg/dL Microbiology - Last 24 Hours (Table) 12/24/16 07:45 Urine Culture - Preliminary Urine,Voided Assessment and Plan Plan: Assessment: #1. End-stage renal disease maintained on hemodialysis on a Saturday schedule via permacath. #2. Noncompliance with hemodialysis treatments as an outpatient. #3. Abdominal pain with nausea and vomiting likely due to diabetic gastroparesis. Improved. #4. Hypertension with chronic kidney disease. Uncontrolled. Partially volume sensitive and also related to gastroparesis flare. Improved today. #5. Chronic kidney disease mineral bone disease. #6. Anemia of chronic kidney disease. Iron deficiency noted. Plan: Hemodialysis tomorrow with goal 3-4 L ultrafiltration. Ferrlecit IV 125 mg daily for 3 days. Third dose today. Maintain PhosLo with meals. Maintain Aranesp. Maintain anti-emetics. Encouraged oral intake. I strongly advised him to be compliant with hemodialysis treatments as an outpatient. Anticipate discharge soon, possibly today. Patient had a short treatment of hemodialysis yesterday as he was nauseous. He is refusing treatment today.
[2016-12-25 12:04] LABS: Glucose,Whole Blood 91 mg/dL (75-99)
== END 2016-12-25 13:20 | disposition home health service (06) ==
LOC: EC 03:36 → 4MS4W 07:12
PROVIDERS: ADMIT Hospitalist; ATTEND Hospitalist
DX: E10.43 Type 1 diabetes mellitus with diabetic autonomic (poly)neuropathy (principal); K31.84 Gastroparesis; D63.1 Anemia in chronic kidney disease; N18.6 End stage renal disease; E10.22 Type 1 diabetes mellitus with diabetic chronic kidney disease; E83.51 Hypocalcemia; E44.0 Moderate protein-calorie malnutrition; E66.9 Obesity, unspecified; J45.909 Unspecified asthma, uncomplicated; K21.9 Gastro-esophageal reflux disease without esophagitis; I12.0 Hypertensive chronic kidney disease with stage 5 chronic kidney disease or end stage renal disease; I16.0 Hypertensive urgency; K29.70 Gastritis, unspecified, without bleeding; K20.9 Esophagitis, unspecified; G43.A0 Cyclical vomiting, in migraine, not intractable; E13.10 Other specified diabetes mellitus with ketoacidosis without coma; G40.909 Epilepsy, unspecified, not intractable, without status epilepticus; K85.90 Acute pancreatitis without necrosis or infection, unspecified; Z86.14 Personal history of Methicillin resistant Staphylococcus aureus infection; M19.90 Unspecified osteoarthritis, unspecified site; F90.9 Attention-deficit hyperactivity disorder, unspecified type; F41.9 Anxiety disorder, unspecified; F32.9 Major depressive disorder, single episode, unspecified; Z87.891 Personal history of nicotine dependence; R19.7 Diarrhea, unspecified; R10.84 Generalized abdominal pain; Z79.4 Long term (current) use of insulin; Z79.899 Other long term (current) drug therapy; N28.9 Disorder of kidney and ureter, unspecified; K44.9 Diaphragmatic hernia without obstruction or gangrene; Z99.2 Dependence on renal dialysis; Z90.49 Acquired absence of other specified parts of digestive tract; Z83.3 Family history of diabetes mellitus; Z68.39 Body mass index [BMI] 39.0-39.9, adult
CPT/HCPCS: 96375 ×3; 96376 ×6; 96361 ×3; 99284 ×2; 96365; 96366 ×2; 96367; 36415; 80053; 80048 ×3; 82728; 82150; 83036; 83540; 83550; 82009; 83690; 84100; 85025 ×4; 81001; 87086; G0257 ×2; G0378 ×4; J0360 ×2; J1644 ×2; J2765; S0106 ×4; J2405 ×2; J0696 ×3; J2916 ×3; J1170 ×4; C9113 ×4; J0881; 90935

== ENCOUNTER 2016-12-25 20:48 | Emergency (ER) | payer OTHER ==
[2016-12-25 20:56] VITALS: RESP 18
[2016-12-25] MEDS ORDERED: SODIUM CHLORIDE 0.9% 1,000 ML IV STA (21:14)
[2016-12-25] MEDS ORDERED: diphenhydrAMINE 50 MG/ML 1 ML VIAL IVP STA (21:14)
[2016-12-25] MEDS ORDERED: ONDANSETRON 4 MG/2 ML VIAL IVP STA (21:14)
[2016-12-25] MEDS ORDERED: HYDROmorphone 1 MG/ML 1 ML SYRINGE IVP STA ×2 (21:14→22:35)
[2016-12-25 21:56] LABS: Basophils % (A) 0 %; CH 27.8; CHCM 31.3; Eosinophils # (A) 0.3 k/uL (0-0.7); Eosinophils % (A) 5 %; HCT 25.3 % (39.0-53.0); Hypochromasia Slight; Luc # (Auto) 0.14; Luc % (Auto) 2; Lymphocytes # (A) 1.1 k/uL (1.0-4.8); Lymphocytes % (A) 17 %; MCH 28.3 pg (25.0-35.0); MCHC 31.6 g/dL (31.0-37.0); MCV 89.5 fL (80.0-100.0); Monocytes # (A) 0.4 k/uL (0-1.0); Monocytes % (A) 6 %; Neutrophils # (A) 4.5 k/uL (1.3-7.7); Neutrophils % (A) 69 %; RBC 2.82 m/uL (4.30-5.90); RDW 15.6 % (11.5-15.5); WBC 6.5 k/uL (3.8-10.6); WBC (Perox) 6.47
[2016-12-25 21:57] LABS: VBG PH 7.42 (7.31-7.41)
[2016-12-25 22:05] LABS: Calcium 8.9 mg/dL (8.4-10.2); Potassium 4.3 mmol/L (3.5-5.1); Total Bilirubin 0.6 mg/dL (0.2-1.3); Total Protein 6.1 g/dL (6.3-8.2)
--- NOTE | 2016-12-25 23:26 | ED ---
General Adult HPI - General Chief complaint: Nausea/Vomiting/Diarrhea Stated complaint: abd pain,vomiting Time Seen by Provider: 12/25/16 21:05 Source: patient, RN notes reviewed, old records reviewed Mode of arrival: wheelchair Limitations: no limitations - History of Present Illness Initial comments: 26 yo male presenting with nausea vomiting and abdominal pain for the past 8 hours. Patient was discharged from the hospital at approximately 1 PM. Since that time he has had 12 episodes of vomiting. Denies any blood. States he has been unable to take his antinausea medication at home. Denies fever or chills. States his abdominal pain is generalized and typical of his chronic abdominal pain. He states his abdominal pain is due to his gastroparesis. He has past medical history of type 1 diabetes, gastroparesis, end-stage renal disease on hemodialysis. Patient receives hemodialysis normally [facility]. He did receive dialysis on Saturday while he was admitted to the hospital. Denies chest pain or shortness of breath. Denies any changes to his bowels. Including no constipation no diarrhea. - Related Data Home Medications Medication Instructions Recorded Confirmed Insulin Glargine [Lantus] 18 unit SQ HS 06/06/15 12/25/16 buPROPion SR [Wellbutrin SR] 150 mg PO BID 06/18/15 12/25/16 INSULIN LISPRO (HumaLOG) [humaLOG] 4 units SQ AC-TID 10/16/16 12/25/16 Lisinopril [Zestril] 20 mg PO BID 10/16/16 12/25/16 Metoclopramide HCl [Reglan] 5 mg PO TID 10/16/16 12/25/16 Ranitidine HCl [Zantac] 150 mg PO HS 10/16/16 12/25/16 Potassium Chloride ER [K-Dur 20] 20 meq PO DAILY 10/20/16 12/25/16 Ergocalciferol (Vitamin D2) 50,000 unit PO MO 10/26/16 12/25/16 [Vitamin D2] oxyCODONE-APAP 5-325MG [Percocet 1 tab PO Q4HR PRN 12/10/16 12/25/16 5-325 mg] amLODIPine [Norvasc] 10 mg PO DAILY 12/15/16 12/25/16 Previous Rx's Medication Instructions Recorded Metoprolol Tartrate [Lopressor] 100 mg PO BID #60 tab 07/16/15 Ondansetron Odt [Zofran ODT] 4 mg PO Q8HR PRN #15 tab 08/03/16 Calcium Acetate [PhosLo] 667 mg PO TID-W/MEALS #90 cap 11/21/16 Cefuroxime Axetil [Ceftin] 500 mg PO BID #10 tab 12/25/16 oxyCODONE HCL/ACETAMINOPHEN 1 tab PO Q6HR PRN #12 tab 12/25/16 [Percocet 5-325 mg] Allergies Allergy/AdvReac Type Severity Reaction Status Date / Time No Known Allergies Allergy Verified 12/25/16 20:57 Review of Systems ROS Statement: Those systems with pertinent positive or pertinent negative responses have been documented in the HPI. ROS Other: All systems not noted in ROS Statement are negative. Past Medical History Past Medical History: Asthma, Diabetes Mellitus, GERD/Reflux, Hypertension, Osteoarthritis (OA), Renal Disease Additional Past Medical History / Comment(s): IDDM type I, GASTROPARESIS, gastritis, esophagitis,cyclic vomiting syndrome, DKA episodes, hiatal hernia, as child had seizure r/t high fever, pancreatits(idiopathic), chronic kidney disease stage III-hemodialysis //Saturday, L leg neuropathy, migraines. History of Any Multi-Drug Resistant Organisms: MRSA Date of last positivie culture/infection: MDRO Source:: CHIN/ Rt leg Past Surgical History: Cholecystectomy, Orthopedic Surgery, Tonsillectomy Additional Past Surgical History / Comment(s): R upper chest hemodialysis catheter, PICC line, LEFT ELBOW pinned, egd's w/ bx's last done 05-30-16.6-03-17 picc line exchange. Past Anesthesia/Blood Transfusion Reactions: No Reported Reaction Past Psychological History: ADD/ADHD, Anxiety, Depression Smoking Status: Former smoker Past Alcohol Use History: None Reported Past Drug Use History: None Reported - Past Family History Mother Family Medical History: Diabetes Mellitus Additional Family Medical History / Comment(s): heart problems-(pt not sure what they were) Father Family Medical History: Diabetes Mellitus General Exam Limitations: no limitations General appearance: alert, in no apparent distress Head exam: Present: atraumatic, normocephalic Eye exam: Present: PERRL, EOMI ENT exam: Present: normal exam Neck exam: Present: normal inspection Respiratory exam: Present: normal lung sounds bilaterally. Absent: respiratory distress, wheezes Cardiovascular Exam: Present: regular rate, normal rhythm GI/Abdominal exam: Present: soft, tenderness, normal bowel sounds. Absent: distended, rebound, rigid Rectal exam: Present: deferred Extremities exam: Present: normal inspection Back exam: Absent: tenderness Neurological exam: Present: alert, oriented X3, CN II-XII intact Psychiatric exam: Present: normal mood Skin exam: Present: warm, dry Course Vital Signs 12/25/16 12/25/16 20:55 22:23 Temperature 97.3 F L Pulse Rate 100 99 Respiratory 18 18 Rate Blood Pressure 184/101 184/102 O2 Sat by Pulse 100 96 Oximetry Medical Decision Making - Medical Decision Making 26 yo male with type 1 diabetes, gastroparesis, and end-stage renal disease presents with nausea and vomiting as well as abdominal pain. Patient was recently discharged for similar symptoms. Patient is nontoxic on examination, normal respiratory rate, abdomen is diffusely tender with no rebound or guarding. Patient is given antiemetics, and IV pain medication the emergency department. Patient states his nausea and pain are chronic in nature and unchanged from his normal symptoms. He has been unable to take his antiemetics at home. Laboratory studies are obtained and reveal hemoglobin 8 which is at the patient' s baseline, there is no signs of metabolic acidosis. Venous pH is 7.42 which is normal. Patient is not in DKA. Potassium is normal. On reevaluation patient is feeling better. His had no episodes of nausea vomiting while in the emergency department. Patient will be discharged home with oral pain medication and he states he has antiemetics at home. He is agreeable with this plan. Diagnosis: Abdominal pain, nausea and vomiting - Lab Data Result diagrams: 12/25/16 21:30 12/25/16 21:30 Lab Results 12/25/16 12/25/16 12/25/16 Range/Units 21:30 21:30 21:30 WBC 6.5 (3.8-10.6) k/uL RBC 2.82 L (4.30-5.90) m/uL Hgb 8.0 L (13.0-17.5) gm/dL Hct 25.3 L (39.0-53.0) % MCV 89.5 (80.0-100.0) fL MCH 28.3 (25.0-35.0) pg MCHC 31.6 (31.0-37.0) g/dL RDW 15.6 H (11.5-15.5) % Plt Count 286 (150-450) k/uL Neutrophils % 69 % Lymphocytes % 17 % Monocytes % 6 % Eosinophils % 5 % Basophils % 0 % Neutrophils # 4.5 (1.3-7.7) k/uL Lymphocytes # 1.1 (1.0-4.8) k/uL Monocytes # 0.4 (0-1.0) k/uL Eosinophils # 0.3 (0-0.7) k/uL Basophils # 0.0 (0-0.2) k/uL Hypochromasia Slight VBG pH 7.42 H (7.31-7.41) VBG pCO2 36 L (37-51) mmHg VBG HCO3 23 L (24-28) mmol/L Sodium 140 (137-145) mmol/L Potassium 4.3 (3.5-5.1) mmol/L Chloride 106 (98-107) mmol/L Carbon Dioxide 22 (22-30) mmol/L Anion Gap 12 mmol/L BUN 24 H (9-20) mg/dL Creatinine 10.00 H* (0.66-1.25) mg/dL Est GFR (MDRD) Af Amer 8 (>60 ml/min/1.73 sqM) Est GFR (MDRD) Non-Af 6 (>60 ml/min/1.73 sqM) Glucose 98 (74-99) mg/dL Plasma Lactic Acid Rakan (0.7-2.0) mmol/L Calcium 8.9 (8.4-10.2) mg/dL Total Bilirubin 0.6 (0.2-1.3) mg/dL AST 16 L (17-59) U/L ALT 20 L (21-72) U/L Alkaline Phosphatase 110 (38-126) U/L Total Protein 6.1 L (6.3-8.2) g/dL Albumin 3.0 L (3.5-5.0) g/dL Lipase 36 (23-300) U/L 12/25/ Range/Units 21:30 WBC (3.8-10.6) k/uL RBC (4.30-5.90) m/uL Hgb (13.0-17.5) gm/dL Hct (39.0-53.0) % MCV (80.0-100.0) fL MCH (25.0-35.0) pg MCHC (31.0-37.0) g/dL RDW (11.5-15.5) % Plt Count (150-450) k/uL Neutrophils % % Lymphocytes % % Monocytes % % Eosinophils % % Basophils % % Neutrophils # (1.3-7.7) k/uL Lymphocytes # (1.0-4.8) k/uL Monocytes # (0-1.0) k/uL Eosinophils # (0-0.7) k/uL Basophils # (0-0.2) k/uL Hypochromasia VBG pH (7.31-7.41) VBG pCO2 (37-51) mmHg VBG HCO3 (24-28) mmol/L Sodium (137-145) mmol/L Potassium (3.5-5.1) mmol/L Chloride (98-107) mmol/L Carbon Dioxide (22-30) mmol/L Anion Gap mmol/L BUN (9-20) mg/dL Creatinine (0.66-1.25) mg/dL Est GFR (MDRD) Af Amer (>60 ml/min/1.73 sqM) Est GFR (MDRD) Non-Af (>60 ml/min/1.73 sqM) Glucose (74-99) mg/dL Plasma Lactic Acid Rakan 1.0 (0.7-2.0) mmol/L Calcium (8.4-10.2) mg/dL Total Bilirubin (0.2-1.3) mg/dL AST (17-59) U/L ALT (21-72) U/L Alkaline Phosphatase (38-126) U/L Total Protein (6.3-8.2) g/dL Albumin (3.5-5.0) g/dL Lipase (23-300) U/L Disposition Clinical Impression: Gastroparesis, Chronic abdominal pain Disposition: HOME SELF-CARE Condition: Stable Instructions: Abdominal Pain (ED), Acute Nausea and Vomiting (ED), Acute Diarrhea (ED) Additional Instructions: Patient will return to the emergency department with worsening abdominal pain and worsening nausea and vomiting. Prescriptions: oxyCODONE HCL/ACETAMINOPHEN [Percocet 5-325 mg] 1 tab PO Q6HR PRN #12 tab PRN Reason: Pain Referrals: Myron Bailey DO [Primary Care Provider] - 1-2 days Time of Disposition: 23:45
[2016-12-26 00:01] VITALS: TEMP 99.4
[2016-12-26 00:44] VITALS: BP 189/94; PULSE 94
--- NOTE | 2016-12-28 19:33 | DS ---
FINAL DIAGNOSES: 1. Intractable abdominal pain, nausea, acute diabetic gastroparesis, acute exacerbation. 2. Anemia, normocytic anemia, chronic kidney disease. 3. Acute urinary tract infection, present on admission. 4. Chronic kidney disease, end stage, on hemodialysis. 5. Creatinine, 12.1. 6. Decreased CO2. 8. History of noncompliance. 9. Mild hypocalcemia. 10. Mild hypoalbuminemia, with mild to moderate protein calorie malnutrition. 11. Morbid obesity, BMI 41.3. 12. Chronic intermittent asthma. 13. Gastroesophageal reflux disease. 14. Essential hypertension history. 15. History of degenerative joint disease. 16. History of hypertensive urgency. Present on admission. 17. History of gastritis, esophagitis and cyclic vomiting syndrome. 18. History of diabetic ketoacidosis episodes. 19. History of seizure disorder, as a child. 20. History of pancreatitis. 21. MRSA. 22. History of attention deficit hyperactivity disorder. 23. History of anxiety, depression, not otherwise specified. 24. Remote history of nicotine dependence. DISCHARGE DISPOSITION: The patient is being discharged in stable condition with guarded prognosis. Discharge extremely keen on going home. The patient refused hemodialysis. HISTORY OF PRESENT ILLNESS: This 26 year old gentleman with past medical history of multiple medical problems admitted with acute gastroparesis, diabetic gastroparesis, acute exacerbation, treated symptomatically. The patient improving symptomatically. On exam, vital signs are stable. Cardiovascular: S1, S2. Abdomen soft. Respirations: ( ). 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 The patient is being discharged with the following advice and medications: 1. Diet is soft, cardiac diet. 2. Activity limited until follow up. 3. Follow up with Dr. Bailey in two to three days. 4. follow up with home care and follow up with nephrology for hemodialysis. MEDICATIONS: As follows: 1. Norvasc 10 mg p.o. daily. 2. Wellbutrin SR 150 mg po b.i.d. 3. PhosLo 667 p.o. t.i.d. 4. Ceftin 500 mg po b.i.d. for five days for UTI. 5. Vitamin D2 50,000 daily. 6. Lantus 18 units subcu q.h.s. 7. NovoLog 40 units a.c. and t.i.d. 8. Zestril 20 mg p.o. b.i.d. 9. Reglan 5 mg p.o. t.i.d. 10. Lopressor 100 mg p.o. b.i.d. 11. Zofran 4 mg p.o. q8h p.r.n. 12. OxyContin 5 mg q4h p.r.n. 13. Potassium K-Dur 20 mEq p.o. t.i.d. 14. Zantac 150 mg p.o. q.h.s. Follow up with Dr. Ho as recommended. MTDD
== END 2016-12-26 00:44 | disposition home or self-care (01) ==
LOC: EC 20:48
DX: E10.43 Type 1 diabetes mellitus with diabetic autonomic (poly)neuropathy (principal); K31.84 Gastroparesis; E10.22 Type 1 diabetes mellitus with diabetic chronic kidney disease; N18.3 Chronic kidney disease, stage 3 (moderate); F32.9 Major depressive disorder, single episode, unspecified; K21.9 Gastro-esophageal reflux disease without esophagitis; I10 Essential (primary) hypertension; Z99.2 Dependence on renal dialysis; Z87.891 Personal history of nicotine dependence; Z86.14 Personal history of Methicillin resistant Staphylococcus aureus infection; Z79.4 Long term (current) use of insulin; Z79.899 Other long term (current) drug therapy
CPT/HCPCS: 36415; 80053; 82803; 83605; 83690; 85025; 99284; 96374; 96375 ×2; 96376; 96361 ×3; J1200; J2405; J1170 ×2; 96366

== ENCOUNTER 2016-12-27 10:13 | Emergency (ER) | payer OTHER ==
[2016-12-27 10:19] VITALS: TEMP 98.3
[2016-12-27] MEDS ORDERED: SODIUM CHLORIDE 0.9% 1,000 ML IV STA (10:33)
[2016-12-27] MEDS ORDERED: DICYCLOMINE 10 MG/ML 2 ML AMP IM STA (10:33)
[2016-12-27] MEDS ORDERED: ONDANSETRON 4 MG/2 ML VIAL IVP STA (10:33)
[2016-12-27] MEDS ORDERED: LABETALOL 5 MG/ML VIAL MDV IVP STA (10:34)
--- NOTE | 2016-12-27 10:37 | ED ---
Abdominal Pain HPI - General Chief Complaint: Abdominal Pain Stated Complaint: ABDOMINAL PAIN Time Seen by Provider: 12/27/16 10:25 Source: patient, RN notes reviewed Mode of arrival: wheelchair Limitations: no limitations - History of Present Illness Initial Comments: 26-year-old male presents to the emergency department chief complaint of abdominal pain nausea and vomiting. Patient chronically suffers from this. Patient is a diabetic patient does not care for himself patient skipped dialysis yesterday because he states he was vomiting. Patient states she's having his typical flare up of pain. Patient denies any fever chills with this. Patient denies any cough cold symptoms. Patient states exactly like his typical flare. Patient does not know his most recent glucose level. Patient denies any recent fever, chills, shortness of breath, chest pain, back pain, numbness or tingling, dysuria or hematuria, constipation or diarrhea, headaches or visual changes, or any other current symptoms. - Related Data Home Medications Medication Instructions Recorded Confirmed Insulin Glargine [Lantus] 18 unit SQ HS 06/06/15 12/27/16 buPROPion SR [Wellbutrin SR] 150 mg PO BID 06/18/15 12/27/16 INSULIN LISPRO (HumaLOG) [humaLOG] 4 units SQ AC-TID 10/16/16 12/27/16 Lisinopril [Zestril] 20 mg PO BID 10/16/16 12/27/16 Metoclopramide HCl [Reglan] 5 mg PO TID 10/16/16 12/27/16 Ranitidine HCl [Zantac] 150 mg PO HS 10/16/16 12/27/16 Potassium Chloride ER [K-Dur 20] 20 meq PO DAILY 10/20/16 12/27/16 Ergocalciferol (Vitamin D2) 50,000 unit PO MO 10/26/16 12/27/16 [Vitamin D2] oxyCODONE-APAP 5-325MG [Percocet 1 tab PO Q4HR PRN 12/10/16 12/27/16 5-325 mg] amLODIPine [Norvasc] 10 mg PO DAILY 12/15/16 12/27/16 Previous Rx's Medication Instructions Recorded Metoprolol Tartrate [Lopressor] 100 mg PO BID #60 tab 07/16/15 Ondansetron Odt [Zofran ODT] 4 mg PO Q8HR PRN #15 tab 08/03/16 Calcium Acetate [PhosLo] 667 mg PO TID-W/MEALS #90 cap 11/21/16 Cefuroxime Axetil [Ceftin] 500 mg PO BID #10 tab 12/25/16 Allergies Allergy/AdvReac Type Severity Reaction Status Date / Time No Known Allergies Allergy Verified 12/27/16 10:22 Review of Systems ROS Statement: Those systems with pertinent positive or pertinent negative responses have been documented in the HPI. ROS Other: All systems not noted in ROS Statement are negative. Past Medical History Past Medical History: Asthma, Diabetes Mellitus, GERD/Reflux, Hypertension, Osteoarthritis (OA), Renal Disease Additional Past Medical History / Comment(s): IDDM type I, GASTROPARESIS, gastritis, esophagitis,cyclic vomiting syndrome, DKA episodes, hiatal hernia, as child had seizure r/t high fever, pancreatits(idiopathic), chronic kidney disease stage III-hemodialysis //Saturday, L leg neuropathy, migraines. History of Any Multi-Drug Resistant Organisms: MRSA Date of last positivie culture/infection: MDRO Source:: CHIN/ Rt leg Past Surgical History: Cholecystectomy, Orthopedic Surgery, Tonsillectomy Additional Past Surgical History / Comment(s): R upper chest hemodialysis catheter, PICC line, LEFT ELBOW pinned, egd's w/ bx's last done 05-30-16.12-07-16 picc line exchange. Past Anesthesia/Blood Transfusion Reactions: No Reported Reaction Past Psychological History: ADD/ADHD, Anxiety, Depression Smoking Status: Former smoker Past Alcohol Use History: None Reported Past Drug Use History: None Reported - Past Family History Mother Family Medical History: Diabetes Mellitus Additional Family Medical History / Comment(s): heart problems-(pt not sure what they were) Father Family Medical History: Diabetes Mellitus General Exam Limitations: no limitations General appearance: alert, in no apparent distress ENT exam: Present: normal exam, mucous membranes moist Neck exam: Present: normal inspection. Absent: tenderness, meningismus, lymphadenopathy Respiratory exam: Present: normal lung sounds bilaterally. Absent: respiratory distress, wheezes, rales, rhonchi, stridor Cardiovascular Exam: Present: regular rate, normal rhythm, normal heart sounds. Absent: systolic murmur, diastolic murmur, rubs, gallop, clicks GI/Abdominal exam: Present: soft, normal bowel sounds. Absent: distended, tenderness, guarding, rebound, rigid Neurological exam: Present: alert, oriented X3 Psychiatric exam: Present: normal affect, normal mood Skin exam: Present: warm, dry, intact, normal color. Absent: rash Course Vital Signs 12/27/16 12/27/16 10:17 10:40 Temperature 98.3 F Pulse Rate 120 H 112 H Respiratory 18 22 Rate Blood Pressure 230/121 198/119 O2 Sat by Pulse 97 96 Oximetry Medical Decision Making - Medical Decision Making 26-year-old male presents emergency Department chief complaint of nausea vomiting and chronic abdominal pain. Much like his typical abdominal pain nausea and vomiting. Patient did skip dialysis yesterday. At this time patient 's lab work is reviewed. Patient was informed that he needs to go directly to dialysis following his visit today. Patient stated that he understood. This time patient's blood pressure continues to be elevated. At this time we stated that we need to give him more blood pressure medication to help lower this. Patient states that he will not wait for this. Patient states that he would like to leave at this time. We did discuss the risks of leaving. We discussed that this could lead to . We discussed the importance of taking care of his chronic diseases. The patient stated that he understood but he will be leaving he is not 0.6 here and wait for this to happen. At this time the patient will be leaving AGAINST MEDICAL ADVICE. - Lab Data Result diagrams: 12/27/16 10:39 12/27/16 10:39 Lab Results 12/27/16 12/27/16 Range/Units 10:39 10:39 WBC 6.5 (3.8-10.6) k/uL RBC 2.82 L (4.30-5.90) m/uL Hgb 7.9 L (13.0-17.5) gm/dL Hct 25.5 L (39.0-53.0) % MCV 90.4 (80.0-100.0) fL MCH 28.0 (25.0-35.0) pg MCHC 31.0 (31.0-37.0) g/dL RDW 15.9 H (11.5-15.5) % Plt Count 287 (150-450) k/uL Neutrophils % 62 % Lymphocytes % 21 % Monocytes % 8 % Eosinophils % 6 % Basophils % 0 % Neutrophils # 4.1 (1.3-7.7) k/uL Lymphocytes # 1.4 (1.0-4.8) k/uL Monocytes # 0.5 (0-1.0) k/uL Eosinophils # 0.4 (0-0.7) k/uL Basophils # 0.0 (0-0.2) k/uL Hypochromasia Moderate Sodium 141 (137-145) mmol/L Potassium 4.0 (3.5-5.1) mmol/L Chloride 107 (98-107) mmol/L Carbon Dioxide 22 (22-30) mmol/L Anion Gap 12 mmol/L BUN 28 H (9-20) mg/dL Creatinine 11.59 H* (0.66-1.25) mg/dL Est GFR (MDRD) Af Amer 6 (>60 ml/min/1.73 sqM) Est GFR (MDRD) Non-Af 5 (>60 ml/min/1.73 sqM) Glucose 136 H (74-99) mg/dL Calcium 8.7 (8.4-10.2) mg/dL Total Bilirubin 0.6 (0.2-1.3) mg/dL AST 20 (17-59) U/L ALT 20 L (21-72) U/L Alkaline Phosphatase 109 (38-126) U/L Total Protein 6.0 L (6.3-8.2) g/dL Albumin 2.9 L (3.5-5.0) g/dL Amylase 59 (30-110) U/L Lipase 42 (23-300) U/L Acetone, Qual Negative (Negative) Disposition Clinical Impression: Chronic renal failure, Nausea and vomiting in adult, Hypertensive urgency Disposition: Left Against Medical Advice Referrals: Myron Bailey DO [Primary Care Provider] - 1-2 days
[2016-12-27 10:56] LABS: Basophils % (A) 0 %; CH 27.2; CHCM 30.3; Eosinophils # (A) 0.4 k/uL (0-0.7); Eosinophils % (A) 6 %; HCT 25.5 % (39.0-53.0); HDW 2.67; HGB 7.9 gm/dL (13.0-17.5); Hypochromasia Moderate; Luc # (Auto) 0.19; Luc % (Auto) 3; Lymphocytes # (A) 1.4 k/uL (1.0-4.8); Lymphocytes % (A) 21 %; MCV 90.4 fL (80.0-100.0); Mean Platelet Volume 6.9; Monocytes # (A) 0.5 k/uL (0-1.0); Monocytes % (A) 8 %; Neutrophils # (A) 4.1 k/uL (1.3-7.7); Neutrophils % (A) 62 %; RBC 2.82 m/uL (4.30-5.90); RDW 15.9 % (11.5-15.5); WBC 6.5 k/uL (3.8-10.6); WBC (Perox) 6.63
[2016-12-27 11:07] LABS: ALT 20 U/L (21-72); AST 20 U/L (17-59); Alkaline Phosphatase 109 U/L (38-126); Amylase 59 U/L (30-110); Anion Gap 12 mmol/L; Blood Urea Nitrogen 28 mg/dL (9-20); Calcium 8.7 mg/dL (8.4-10.2); Carbon Dioxide 22 mmol/L (22-30); Chloride 107 mmol/L (98-107); Glucose 136 mg/dL (74-99); Sodium 141 mmol/L (137-145); Total Bilirubin 0.6 mg/dL (0.2-1.3)
[2016-12-27 11:13] LABS: Non-African American GFR(MDRD) 5 (>60 ml/min/1.73 sqM)
--- NOTE | 2016-12-27 11:29 | XR ---
EXAMINATION TYPE: XR abdomen 2V DATE OF EXAM: 12/27/2016 COMPARISON: 12/20/2016 INDICATION: Pain nausea TECHNIQUE: Single view abdomen upright FINDINGS: There is a normal bowel gas pattern. Psoas margins are normal. No organomegaly is present. Radiopaque foreign bodies over the left lower pelvis IMPRESSION: 1. Unremarkable Abdomen
[2016-12-27] MEDS ORDERED: hydrALAZINE HCL 20 MG/ML 1 ML VIAL IVP STA (12:07)
[2016-12-27 12:34] VITALS: BP 186/97; PULSE 96; RESP 200
== END 2016-12-27 12:29 | disposition left against medical advice (07) ==
LOC: EC 10:13
DX: I16.0 Hypertensive urgency (principal); N18.3 Chronic kidney disease, stage 3 (moderate); R11.2 Nausea with vomiting, unspecified; R10.9 Unspecified abdominal pain; I12.9 Hypertensive chronic kidney disease with stage 1 through stage 4 chronic kidney disease, or unspecified chronic kidney disease; E11.22 Type 2 diabetes mellitus with diabetic chronic kidney disease; K21.9 Gastro-esophageal reflux disease without esophagitis; F32.9 Major depressive disorder, single episode, unspecified; Z87.891 Personal history of nicotine dependence; Z79.4 Long term (current) use of insulin; Z79.899 Other long term (current) drug therapy; Z99.2 Dependence on renal dialysis; Z90.49 Acquired absence of other specified parts of digestive tract
CPT/HCPCS: 36415; 80053; 82150; 82009; 83690; 85025; 74020; 99284; 96374; 96375; 96361; 96372; J0500; J2405

== ENCOUNTER 2017-01-12 22:22 | Emergency (ER) | payer OTHER ==
[2017-01-12] MEDS ORDERED: SODIUM CHLORIDE 0.9% 1,000 ML IV STA (22:38)
[2017-01-12] MEDS ORDERED: HYDROmorphone 1 MG/ML 1 ML SYRINGE IVP STA ×2 (22:38→23:46)
[2017-01-12] MEDS ORDERED: METOCLOPRAMIDE 5 MG/ML 2 ML VIAL IVP STA (22:38)
[2017-01-12] MEDS ORDERED: FAMOTIDINE 20 MG/2 ML VIAL IV STA (22:39)
[2017-01-12 23:16] LABS: Basophils % (A) 1 %; CH 27.3; CHCM 30.6; Eosinophils # (A) 0.3 k/uL (0-0.7); Eosinophils % (A) 4 %; HCT 26.4 % (39.0-53.0); HDW 2.46; HGB 8.2 gm/dL (13.0-17.5); Hypochromasia Slight; Luc # (Auto) 0.11; Luc % (Auto) 2; Lymphocytes # (A) 1.6 k/uL (1.0-4.8); Lymphocytes % (A) 27 %; MCH 27.8 pg (25.0-35.0); MCHC 31.1 g/dL (31.0-37.0); MCV 89.5 fL (80.0-100.0); Mean Platelet Volume 7.8; Monocytes # (A) 0.5 k/uL (0-1.0); Monocytes % (A) 8 %; Neutrophils # (A) 3.4 k/uL (1.3-7.7); Neutrophils % (A) 58 %; RBC 2.96 m/uL (4.30-5.90); RDW 15.1 % (11.5-15.5); WBC 5.8 k/uL (3.8-10.6)
[2017-01-12 23:25] LABS: ALT 37 U/L (21-72); AST 20 U/L (17-59); Alkaline Phosphatase 115 U/L (38-126); Amylase 49 U/L (30-110); Anion Gap 11 mmol/L; Blood Urea Nitrogen 43 mg/dL (9-20); Calcium 8.1 mg/dL (8.4-10.2); Carbon Dioxide 29 mmol/L (22-30); Chloride 99 mmol/L (98-107); Glucose 84 mg/dL (74-99); Potassium 4.1 mmol/L (3.5-5.1); Sodium 139 mmol/L (137-145); Total Bilirubin 0.9 mg/dL (0.2-1.3); Total Protein 5.8 g/dL (6.3-8.2)
[2017-01-12 23:27] LABS: Non-African American GFR(MDRD) 5 (>60 ml/min/1.73 sqM)
--- NOTE | 2017-01-12 23:40 | ED ---
Abdominal Pain HPI - General Chief Complaint: Abdominal Pain Stated Complaint: nausea/vomiting/abdominal pain Time Seen by Provider: 01/12/17 22:38 Source: patient, RN notes reviewed Mode of arrival: ambulatory Limitations: no limitations - History of Present Illness Initial Comments: This a 26-year-old male well-known emergency Department presents today chief complaint abdominal pain, nausea vomiting. Patient has diabetes with gastroparesis and renal failure. Patient currently is on Hemodialysis. Patient states that he is scheduled for surgery to be set up for peritoneal dialysis. Patient states he went to dialysis yesterday. Patient states that he has been going on a more regular basis and states he's been feeling better. Patient states she's not been in the emergency Department in over 2 weeks. Patient denies any fever, chills, chest pain or shortness breath. Patient states she just has his typical midabdominal discomfort. - Related Data Home Medications Medication Instructions Recorded Confirmed Insulin Glargine [Lantus] 18 unit SQ HS 06/06/15 01/12/17 buPROPion SR [Wellbutrin SR] 150 mg PO BID 06/18/15 01/12/17 INSULIN LISPRO (HumaLOG) [humaLOG] 4 units SQ AC-TID 10/16/16 01/12/17 Lisinopril [Zestril] 20 mg PO BID 10/16/16 01/12/17 Metoclopramide HCl [Reglan] 5 mg PO TID 10/16/16 01/12/17 Ranitidine HCl [Zantac] 150 mg PO HS 10/16/16 01/12/17 Potassium Chloride ER [K-Dur 20] 20 meq PO DAILY 10/20/16 01/12/17 Ergocalciferol (Vitamin D2) 50,000 unit PO MO 10/26/16 01/12/17 [Vitamin D2] oxyCODONE-APAP 5-325MG [Percocet 1 tab PO Q4HR PRN 12/10/16 01/12/17 5-325 mg] amLODIPine [Norvasc] 10 mg PO DAILY 12/15/16 01/12/17 Previous Rx's Medication Instructions Recorded Metoprolol Tartrate [Lopressor] 100 mg PO BID #60 tab 07/16/15 Ondansetron Odt [Zofran ODT] 4 mg PO Q8HR PRN #15 tab 08/03/16 Calcium Acetate [PhosLo] 667 mg PO TID-W/MEALS #90 cap 11/21/16 Cefuroxime Axetil [Ceftin] 500 mg PO BID #10 tab 12/25/16 Ciprofloxacin HCl [Cipro] 250 mg PO Q12HR #14 tablet 01/13/17 Allergies Allergy/AdvReac Type Severity Reaction Status Date / Time No Known Allergies Allergy Verified 01/12/17 22:27 Review of Systems ROS Statement: Those systems with pertinent positive or pertinent negative responses have been documented in the HPI. ROS Other: All systems not noted in ROS Statement are negative. Past Medical History Past Medical History: Asthma, Diabetes Mellitus, GERD/Reflux, Hypertension, Osteoarthritis (OA), Renal Disease Additional Past Medical History / Comment(s): IDDM type I, GASTROPARESIS, gastritis, esophagitis,cyclic vomiting syndrome, DKA episodes, hiatal hernia, as child had seizure r/t high fever, pancreatits(idiopathic), chronic kidney disease stage III-hemodialysis //Saturday, L leg neuropathy, migraines. History of Any Multi-Drug Resistant Organisms: MRSA Date of last positivie culture/infection: MDRO Source:: CHIN/ Rt leg Past Surgical History: Cholecystectomy, Orthopedic Surgery, Tonsillectomy Additional Past Surgical History / Comment(s): R upper chest hemodialysis catheter, PICC line, LEFT ELBOW pinned, egd's w/ bx's last done 05-30-16.12-07-16 picc line exchange. Past Anesthesia/Blood Transfusion Reactions: No Reported Reaction Past Psychological History: ADD/ADHD, Anxiety, Depression Smoking Status: Former smoker Past Alcohol Use History: None Reported Past Drug Use History: None Reported - Past Family History Mother Family Medical History: Diabetes Mellitus Additional Family Medical History / Comment(s): heart problems-(pt not sure what they were) Father Family Medical History: Diabetes Mellitus General Exam Limitations: no limitations General appearance: alert, in no apparent distress Head exam: Present: atraumatic, normocephalic, normal inspection Neck exam: Present: normal inspection, full ROM. Absent: tenderness, meningismus, lymphadenopathy Respiratory exam: Present: normal lung sounds bilaterally. Absent: respiratory distress, wheezes, rales, rhonchi, stridor Cardiovascular Exam: Present: regular rate, normal rhythm, normal heart sounds. Absent: systolic murmur, diastolic murmur, rubs, gallop, clicks GI/Abdominal exam: Present: soft, tenderness (Minimal abdominal tenderness mild to moderate), normal bowel sounds. Absent: distended, guarding, rebound, rigid Back exam: Absent: CVA tenderness (R), CVA tenderness (L) Skin exam: Present: warm, dry, intact, normal color. Absent: rash Course Vital Signs 01/12/17 01/12/17 22:26 23:27 Temperature 98.3 F Pulse Rate 88 78 Respiratory 18 20 Rate Blood Pressure 194/106 170/106 O2 Sat by Pulse 97 99 Oximetry Medical Decision Making - Medical Decision Making 26-year-old male presented for chronic abdominal pain. Patient does feel improved at this time. Patient appears to have urinary tract infection. Patient was discharged antibiotics. Return parameters were discussed. - Lab Data Result diagrams: 01/12/17 23:00 01/12/17 23:00 Lab Results 01/12/17 01/12/17 01/12/17 Range/Units 23:00 23:00 23:35 WBC 5.8 (3.8-10.6) k/uL RBC 2.96 L (4.30-5.90) m/uL Hgb 8.2 L (13.0-17.5) gm/dL Hct 26.4 L (39.0-53.0) % MCV 89.5 (80.0-100.0) fL MCH 27.8 (25.0-35.0) pg MCHC 31.1 (31.0-37.0) g/dL RDW 15.1 (11.5-15.5) % Plt Count 257 (150-450) k/uL Neutrophils % 58 % Lymphocytes % 27 % Monocytes % 8 % Eosinophils % 4 % Basophils % 1 % Neutrophils # 3.4 (1.3-7.7) k/uL Lymphocytes # 1.6 (1.0-4.8) k/uL Monocytes # 0.5 (0-1.0) k/uL Eosinophils # 0.3 (0-0.7) k/uL Basophils # 0.0 (0-0.2) k/uL Hypochromasia Slight Sodium 139 (137-145) mmol/L Potassium 4.1 (3.5-5.1) mmol/L Chloride 99 (98-107) mmol/L Carbon Dioxide 29 (22-30) mmol/L Anion Gap 11 mmol/L BUN 43 H (9-20) mg/dL Creatinine 13.20 H* (0.66-1.25) mg/dL Est GFR (MDRD) Af Amer 6 (>60 ml/min/1.73 sqM) Est GFR (MDRD) Non-Af 5 (>60 ml/min/1.73 sqM) Glucose 84 (74-99) mg/dL Calcium 8.1 L (8.4-10.2) mg/dL Total Bilirubin 0.9 (0.2-1.3) mg/dL AST 20 (17-59) U/L ALT 37 (21-72) U/L Alkaline Phosphatase 115 (38-126) U/L Total Protein 5.8 L (6.3-8.2) g/dL Albumin 3.0 L (3.5-5.0) g/dL Amylase 49 (30-110) U/L Lipase 22 L (23-300) U/L Urine Color Yellow Urine Appearance Cloudy (Clear) Urine pH 8.5 H (5.0-8.0) Ur Specific [place] 1.015 (1.001-1.035) Urine Protein 4+ H (Negative) Urine Glucose (UA) 1+ H (Negative) Urine Ketones Trace H (Negative) Urine Blood Trace H (Negative) Urine Nitrite Negative (Negative) Urine Bilirubin Negative (Negative) Urine Urobilinogen <2.0 (<2.0) mg/dL Ur Leukocyte Esterase Moderate H (Negative) Urine RBC 8 H (0-5) /hpf Urine WBC 95 H (0-5) /hpf Urine WBC Clumps Rare H (None) /hpf Ur Squamous Epith Cells 1 (0-4) /hpf Amorphous Sediment Rare H (None) /hpf Urine Bacteria Rare H (None) /hpf Hyaline Casts 20 H (0-2) /lpf Urine Mucus Rare H (None) /hpf Acetone, Qual Negative (Negative) Disposition Clinical Impression: Chronic abdominal pain, UTI (urinary tract infection), Nausea & vomiting Disposition: HOME SELF-CARE Condition: Stable Instructions: Abdominal Pain (ED) Additional Instructions: Please return to the Emergency Department if symptoms worsen or any other concerns. Prescriptions: Ciprofloxacin HCl [Cipro] 250 mg PO Q12HR #14 tablet Referrals: Myron Bailey DO [Primary Care Provider] - 1-2 days Time of Disposition: 00:21
[2017-01-12] MEDS ORDERED: LORazepam 2 MG/ML SYRINGE IV STA (23:46)
[2017-01-12 23:54] VITALS: RESP 20
--- NOTE | 2017-01-12 23:59 | XR ---
EXAM: XR Abdomen, 2 views CLINICAL HISTORY: Abdominal pain TECHNIQUE: Frontal supine views of the abdomen/pelvis. COMPARISON: 12/27/2016 FINDINGS: Gastrointestinal tract: Unremarkable. No dilation. Bones/joints: Unremarkable. IMPRESSION: Normal abdominal x-ray.
[2017-01-13 00:13] LABS: Amorphous Sediment,Urine Rare /hpf; Appearance,Urine Cloudy (Clear); Bacteria,Urine Rare /hpf; Bilirubin,Urine Negative (Negative); Glucose,Urine (UA) 1+ (Negative); Ketones,Urine Trace (Negative); Leukocyte Esterase,Urine Moderate (Negative); Mucus,Urine Rare /hpf; Nitrite,Urine Negative (Negative); PH, Urine 8.5 (5.0-8.0); Particle Count 3776; Protein,Urine 4+ (Negative); RBC,Urine 8 /hpf (0-5); Specific Gravity,Urine 1.015 (1.001-1.035); Squamous Epithelial Cell,Urine 1 /hpf (0-4); UA Billing (MACRO vs. MICRO) MICRO; Urobilinogen,Urine <2.0 mg/dL (<2.0); WBC,Urine 95 /hpf (0-5)
[2017-01-13] MEDS ORDERED: CIPROFLOXACIN HCL 250 MG TAB PO STA (00:21)
[2017-01-13 00:34] VITALS: BP 176/106; PULSE 88; TEMP 98
== END 2017-01-13 00:32 | disposition home or self-care (01) ==
LOC: EC 22:22
DX: N39.0 Urinary tract infection, site not specified (principal); R10.9 Unspecified abdominal pain; G89.29 Other chronic pain; R11.2 Nausea with vomiting, unspecified; K21.9 Gastro-esophageal reflux disease without esophagitis; E10.22 Type 1 diabetes mellitus with diabetic chronic kidney disease; I12.9 Hypertensive chronic kidney disease with stage 1 through stage 4 chronic kidney disease, or unspecified chronic kidney disease; N18.3 Chronic kidney disease, stage 3 (moderate); F32.9 Major depressive disorder, single episode, unspecified; Z90.49 Acquired absence of other specified parts of digestive tract; Z87.891 Personal history of nicotine dependence; Z79.4 Long term (current) use of insulin; Z79.899 Other long term (current) drug therapy
CPT/HCPCS: 99284; 96374; 96375 ×3; 96376; 96361; 36415; 80053; 82150; 82009; 83690; 85025; 81001; 87086; 74000; J2060; J2765; J1170

== ENCOUNTER 2017-01-13 21:42 | Emergency (ER) | payer OTHER ==
[2017-01-13] MEDS ORDERED: diphenhydrAMINE 50 MG/ML 1 ML VIAL IVP STA (22:09)
[2017-01-13] MEDS ORDERED: ONDANSETRON 4 MG/2 ML VIAL IVP STA (22:09)
[2017-01-13] MEDS ORDERED: HYDROmorphone 1 MG/ML 1 ML SYRINGE IVP STA ×2 (22:09→23:42)
--- NOTE | 2017-01-13 22:31 | ED ---
General Adult HPI - General Chief complaint: Abdominal Pain Stated complaint: abdominal & back pain/vomiting Time Seen by Provider: 01/13/17 21:58 Source: patient Mode of arrival: wheelchair Limitations: no limitations - History of Present Illness Initial comments: Patient is a 26-year-old male with end-stage renal disease secondary to orally controlled insulin-dependent diabetes. Patient is well known to our emergency department for his frequent visits for chronic abdominal pain secondary to gastroparesis. Patient was most recently seen yesterday at which time his workup revealed no acute findings. Patient was treated and he was discharged home. Patient reports he woke this morning with continued abdominal pain, pain is located in the epigastrium, is a chronic gnawing and stabbing sensation. Patient states that he ate one slice of bread when he took his medications this morning but otherwise has been unable to eat or keep down anything. Patient reports the pain is consistent with his exacerbations of chronic abdominal pain. He reports there is no change in the pain from his usual exacerbations. Patient reports that he has not missed any dialysis in the past week, he does admit to being poorly compliant with his dialysis but states that over the past week he has been compliant and not missed any. He is scheduled for dialysis tomorrow at 2 PM. She denies any fevers, chills he reports he's been having vomiting multiple episodes which of now become bilious, this is typical for his usual episodes of vomiting. He denies any chest pain or trouble breathing. - Related Data Home Medications Medication Instructions Recorded Confirmed Insulin Glargine [Lantus] 18 unit SQ HS 06/06/15 01/13/17 buPROPion SR [Wellbutrin SR] 150 mg PO BID 06/18/15 01/13/17 INSULIN LISPRO (HumaLOG) [humaLOG] 4 units SQ AC-TID 10/16/16 01/13/17 Lisinopril [Zestril] 20 mg PO BID 10/16/16 01/13/17 Metoclopramide HCl [Reglan] 5 mg PO TID 10/16/16 01/13/17 Ranitidine HCl [Zantac] 150 mg PO HS 10/16/16 01/13/17 Potassium Chloride ER [K-Dur 20] 20 meq PO DAILY 10/20/16 01/13/17 Ergocalciferol (Vitamin D2) 50,000 unit PO MO 10/26/16 01/13/17 [Vitamin D2] oxyCODONE-APAP 5-325MG [Percocet 1 tab PO Q4HR PRN 12/10/16 01/13/17 5-325 mg] amLODIPine [Norvasc] 10 mg PO DAILY 12/15/16 01/13/17 Ciprofloxacin HCl [Cipro] 250 mg PO Q12H 01/13/17 01/13/17 Previous Rx's Medication Instructions Recorded Metoprolol Tartrate [Lopressor] 100 mg PO BID #60 tab 07/16/15 Ondansetron Odt [Zofran ODT] 4 mg PO Q8HR PRN #15 tab 08/03/16 Calcium Acetate [PhosLo] 667 mg PO TID-W/MEALS #90 cap 11/21/16 Allergies Allergy/AdvReac Type Severity Reaction Status Date / Time No Known Allergies Allergy Verified 01/13/17 22:18 Review of Systems ROS Statement: Those systems with pertinent positive or pertinent negative responses have been documented in the HPI. ROS Other: All systems not noted in ROS Statement are negative. Constitutional: Denies: fever, chills Eyes: Denies: vision change ENT: Reports: throat pain (Discomfort from vomiting) Respiratory: Denies: cough, dyspnea Cardiovascular: Denies: chest pain, palpitations Endocrine: Reports: fatigue Gastrointestinal: Reports: abdominal pain, nausea, vomiting. Denies: diarrhea, constipation Past Medical History Past Medical History: Asthma, Diabetes Mellitus, GERD/Reflux, Hypertension, Osteoarthritis (OA), Renal Disease Additional Past Medical History / Comment(s): IDDM type I, GASTROPARESIS, gastritis, esophagitis,cyclic vomiting syndrome, DKA episodes, hiatal hernia, as child had seizure r/t high fever, pancreatits(idiopathic), chronic kidney disease stage III-hemodialysis //Saturday, L leg neuropathy, migraines. History of Any Multi-Drug Resistant Organisms: MRSA Date of last positivie culture/infection: MDRO Source:: CHIN/ Rt leg Past Surgical History: Cholecystectomy, Orthopedic Surgery, Tonsillectomy Additional Past Surgical History / Comment(s): R upper chest hemodialysis catheter, PICC line, LEFT ELBOW pinned, egd's w/ bx's last done 05-30-16.12-07-16 picc line exchange. Past Anesthesia/Blood Transfusion Reactions: No Reported Reaction Past Psychological History: ADD/ADHD, Anxiety, Depression Smoking Status: Former smoker Past Alcohol Use History: None Reported Past Drug Use History: None Reported - Past Family History Mother Family Medical History: Diabetes Mellitus Additional Family Medical History / Comment(s): heart problems-(pt not sure what they were) Father Family Medical History: Diabetes Mellitus General Exam Limitations: no limitations General appearance: alert, other Head exam: Present: atraumatic (Ears uncomfortable), normocephalic, normal inspection Eye exam: Present: PERRL ENT exam: Present: mucous membranes moist Neck exam: Present: full ROM Respiratory exam: Present: normal lung sounds bilaterally. Absent: respiratory distress Cardiovascular Exam: Present: regular rate, normal rhythm GI/Abdominal exam: Present: soft, tenderness, normal bowel sounds. Absent: distended, guarding, rebound, rigid Rectal exam: Present: deferred Extremities exam: Present: other (PICC line in right upper extremity) Back exam: Present: normal inspection Neurological exam: Present: alert, oriented X3 Psychiatric exam: Present: normal mood Skin exam: Present: warm, dry Course Vital Signs 01/13/17 01/13/17 01/13/17 21:54 22:50 23:47 Temperature 99.5 F Pulse Rate 94 85 85 Respiratory 20 18 18 Rate Blood Pressure 201/110 196/104 210/107 O2 Sat by Pulse 98 98 98 Oximetry 01/14/17 01/14/17 01/14/17 00:02 00:43 01:20 Temperature 98.9 F Pulse Rate 89 82 92 Respiratory 18 18 18 Rate Blood Pressure 201/103 186/106 192/109 O2 Sat by Pulse 95 94 L 95 Oximetry 01/14/17 01:35 Temperature 98.5 F Pulse Rate 95 Respiratory 18 Rate Blood Pressure 194/108 O2 Sat by Pulse 94 L Oximetry - Reevaluation(s) Reevaluation #1: A shot reevaluated, states that his pain improved only mildly with first dose. Patient states that his pain usually takes 2 doses of pain meds to improve 01/13/17 23:23 Reevaluation #2: She reevaluated, states his pain is improved significantly was able tolerate his by mouth antihypertensive medications. Patient remains hypertensive despite medications. She states it is feeling well and his artery called his father to pick him up so that he can be discharged home. Denies the patient that he remains hypertensive and needs to attend his dialysis as scheduled today , patient expresses understanding. 01/14/17 00:42 Medical Decision Making - Medical Decision Making Patient seen and evaluated, vital signs were reviewed as noted the patient is hypertensive, however he has not been to dialysis since Saturday and did receive a 1 L fluid bolus yesterday. Patient also notes that he was not able to tolerate his oral antihypertensives today due to nausea and vomiting Ordered antiemetics, Benadryl and Dilaudid as these medications have worked for him in the past Reevaluated, reports resolution of his nausea, however continues to have abdominal pain. Advised him that we will order his oral antihypertensives as well as an additional dose of Dilaudid. Patient is agreeable to this plan and states that this is his usual course of action and usually works for him. IV labetalol and by mouth antihypertensives were ordered Patient tolerated oral antihypertensives, he remained hypertensive. I discussed with the patient that he needs to attend his dialysis as he has not been 2 days and received IV fluids yesterday. Patient expressed understanding of this and stated that he will be there at 2 PM today. Patient was reevaluated after second dose of IV Dilaudid, patient states he is very called his father for a ride home because he is feeling well and feels ready to be discharged home so he can get some sleep prior to dialysis. Questions pertaining to care were answered to the best of my ability patient was noted to be hypertensive and in renal failure but this appears to be the patient's baseline at the time of discharge. - Lab Data Result diagrams: 01/13/17 22:40 01/13/17 22:40 Lab Results 01/13/17 01/13/17 Range/Units 22:40 22:40 WBC 6.5 (3.8-10.6) k/uL RBC 3.01 L (4.30-5.90) m/uL Hgb 8.4 L (13.0-17.5) gm/dL Hct 27.1 L (39.0-53.0) % MCV 90.0 (80.0-100.0) fL MCH 27.9 (25.0-35.0) pg MCHC 31.0 (31.0-37.0) g/dL RDW 15.3 (11.5-15.5) % Plt Count 267 (150-450) k/uL Neutrophils % 59 % Lymphocytes % 28 % Monocytes % 7 % Eosinophils % 3 % Basophils % 1 % Neutrophils # 3.8 (1.3-7.7) k/uL Lymphocytes # 1.8 (1.0-4.8) k/uL Monocytes # 0.5 (0-1.0) k/uL Eosinophils # 0.2 (0-0.7) k/uL Basophils # 0.1 (0-0.2) k/uL Hypochromasia Slight Sodium 141 (137-145) mmol/L Potassium 3.9 (3.5-5.1) mmol/L Chloride 102 (98-107) mmol/L Carbon Dioxide 25 (22-30) mmol/L Anion Gap 14 mmol/L BUN 46 H (9-20) mg/dL Creatinine 13.70 H* (0.66-1.25) mg/dL Est GFR (MDRD) Af Amer 5 (>60 ml/min/1.73 sqM) Est GFR (MDRD) Non-Af 4 (>60 ml/min/1.73 sqM) Glucose 64 L (74-99) mg/dL Calcium 8.3 L (8.4-10.2) mg/dL Lipase 27 (23-300) U/L Disposition Clinical Impression: Chronic abdominal pain, Gastroparesis due to DM, Hypertension, End stage renal disease on dialysis Disposition: HOME SELF-CARE Instructions: Acute Nausea and Vomiting (ED), Gastroparesis (ED) Additional Instructions: Take your oral high blood pressure medications this morning. Attend dialysis as scheduled today. Referrals: Myron Bailey DO [Primary Care Provider] - 1-2 days
[2017-01-13 22:53] VITALS: RESP 18
[2017-01-13 23:09] LABS: Basophils # (A) 0.1 k/uL (0-0.2); Basophils % (A) 1 %; CH 27.4; CHCM 30.6; Eosinophils # (A) 0.2 k/uL (0-0.7); Eosinophils % (A) 3 %; HCT 27.1 % (39.0-53.0); HDW 2.43; HGB 8.4 gm/dL (13.0-17.5); Hypochromasia Slight; Luc # (Auto) 0.11; Luc % (Auto) 2; Lymphocytes # (A) 1.8 k/uL (1.0-4.8); Lymphocytes % (A) 28 %; MCH 27.9 pg (25.0-35.0); Mean Platelet Volume 7.5; Monocytes # (A) 0.5 k/uL (0-1.0); Monocytes % (A) 7 %; Neutrophils # (A) 3.8 k/uL (1.3-7.7); Neutrophils % (A) 59 %; RBC 3.01 m/uL (4.30-5.90); RDW 15.3 % (11.5-15.5); WBC 6.5 k/uL (3.8-10.6); WBC (Perox) 6.06
[2017-01-13 23:27] LABS: Calcium 8.3 mg/dL (8.4-10.2); Potassium 3.9 mmol/L (3.5-5.1)
[2017-01-13] MEDS ORDERED: METOPROLOL TARTRATE 5 MG/5 ML VIAL IVP ONE (23:30)
[2017-01-13] MEDS ORDERED: amLODIPine 10 MG TAB PO STA (23:30)
[2017-01-13] MEDS ORDERED: LISINOPRIL 20 MG TAB PO STA (23:30)
[2017-01-14 01:38] VITALS: BP 194/108; PULSE 95; TEMP 98.5
== END 2017-01-14 01:38 | disposition home or self-care (01) ==
LOC: EC 21:42
DX: E10.43 Type 1 diabetes mellitus with diabetic autonomic (poly)neuropathy (principal); E10.22 Type 1 diabetes mellitus with diabetic chronic kidney disease; E10.10 Type 1 diabetes mellitus with ketoacidosis without coma; I12.0 Hypertensive chronic kidney disease with stage 5 chronic kidney disease or end stage renal disease; N18.6 End stage renal disease; K31.84 Gastroparesis; K21.9 Gastro-esophageal reflux disease without esophagitis; F90.9 Attention-deficit hyperactivity disorder, unspecified type; F32.9 Major depressive disorder, single episode, unspecified; F41.9 Anxiety disorder, unspecified; Z87.891 Personal history of nicotine dependence; Z79.4 Long term (current) use of insulin; Z79.899 Other long term (current) drug therapy; Z87.19 Personal history of other diseases of the digestive system; Z99.2 Dependence on renal dialysis; Z90.49 Acquired absence of other specified parts of digestive tract
CPT/HCPCS: 99284; 96374; 96375 ×3; 96376; 36415; 80048; 83690; 85025; J1200; J2405; J1170

== ENCOUNTER 2017-01-17 01:03 | Emergency (ER) | payer OTHER ==
[2017-01-17 01:09] VITALS: TEMP 98.8
[2017-01-17 01:13] LABS: Glucose,Whole Blood 134 mg/dL (75-99)
--- NOTE | 2017-01-17 01:30 | ED ---
Nausea/Vomiting/Diarrhea HPI - General Chief complaint: Nausea/Vomiting/Diarrhea Stated complaint: NVD Time Seen by Provider: 01/17/17 01:13 Source: patient, RN notes reviewed, old records reviewed Mode of arrival: ambulatory Limitations: no limitations - History of Present Illness Initial comments: This is a 26-year-old male with end-stage renal disease secondary to poorly controlled insulin dependent diabetes will need to the emergency department for frequent abdominal pain. Patient reports he's had increased abdominal pain over the past 2 days. Patient was seen 4 days ago for similar symptoms. Lab work was negative at that time. Patient states that the pain is in the mid abdomen is a burning sharp sensation. Patient reports he has not been able to eat over the past 2 days. He reports he took his blood sugar 2 days ago and it was 96. He states that he did miss his dialysis that was supposed to be today. Patient denies any fever or chills. He's had multiple episodes of vomiting and soften bile. Patient denies any shortness of breath or trouble breathing, or increased coughing. He reports that the days pain also seems to radiate over his right upper quadrant. - Related Data Home Medications Medication Instructions Recorded Confirmed Insulin Glargine [Lantus] 18 unit SQ HS 06/06/15 01/17/17 buPROPion SR [Wellbutrin SR] 150 mg PO BID 06/18/15 01/17/17 INSULIN LISPRO (HumaLOG) [humaLOG] 4 units SQ AC-TID 10/16/16 01/17/17 Lisinopril [Zestril] 20 mg PO BID 10/16/16 01/17/17 Metoclopramide HCl [Reglan] 5 mg PO TID 10/16/16 01/17/17 Ranitidine HCl [Zantac] 150 mg PO HS 10/16/16 01/17/17 Potassium Chloride ER [K-Dur 20] 20 meq PO DAILY 10/20/16 01/17/17 Ergocalciferol (Vitamin D2) 50,000 unit PO MO 10/26/16 01/17/17 [Vitamin D2] oxyCODONE-APAP 5-325MG [Percocet 1 tab PO Q4HR PRN 12/10/16 01/17/17 5-325 mg] amLODIPine [Norvasc] 10 mg PO DAILY 12/15/16 01/17/17 Ciprofloxacin HCl [Cipro] 250 mg PO Q12H 01/13/17 01/17/17 Previous Rx's Medication Instructions Recorded Metoprolol Tartrate [Lopressor] 100 mg PO BID #60 tab 07/16/15 Ondansetron Odt [Zofran ODT] 4 mg PO Q8HR PRN #15 tab 08/03/16 Calcium Acetate [PhosLo] 667 mg PO TID-W/MEALS #90 cap 11/21/16 Allergies Allergy/AdvReac Type Severity Reaction Status Date / Time No Known Allergies Allergy Verified 01/17/17 01:09 Review of Systems ROS Statement: Those systems with pertinent positive or pertinent negative responses have been documented in the HPI. ROS Other: All systems not noted in ROS Statement are negative. Past Medical History Past Medical History: Asthma, Diabetes Mellitus, GERD/Reflux, Hypertension, Osteoarthritis (OA), Renal Disease Additional Past Medical History / Comment(s): IDDM type I, GASTROPARESIS, gastritis, esophagitis,cyclic vomiting syndrome, DKA episodes, hiatal hernia, as child had seizure r/t high fever, pancreatits(idiopathic), chronic kidney disease stage III-hemodialysis M/W/Saturday, L leg neuropathy, migraines. History of Any Multi-Drug Resistant Organisms: MRSA Date of last positivie culture/infection: MDRO Source:: CHIN/ Rt leg Past Surgical History: Cholecystectomy, Orthopedic Surgery, Tonsillectomy Additional Past Surgical History / Comment(s): R upper chest hemodialysis catheter, PICC line, LEFT ELBOW pinned, egd's w/ bx's last done 05-30-16.12-07-16 picc line exchange. Past Anesthesia/Blood Transfusion Reactions: No Reported Reaction Past Psychological History: ADD/ADHD, Anxiety, Depression Smoking Status: Former smoker Past Alcohol Use History: None Reported Past Drug Use History: None Reported - Past Family History Mother Family Medical History: Diabetes Mellitus Additional Family Medical History / Comment(s): heart problems-(pt not sure what they were) Father Family Medical History: Diabetes Mellitus General Exam - General Exam Comments Initial Comments: 26-year-old -[place] male. Patient does appear to be in some mild discomfort. Limitations: no limitations General appearance: alert, in no apparent distress Head exam: Present: atraumatic, normocephalic, normal inspection Eye exam: Present: normal appearance, PERRL, EOMI. Absent: scleral icterus, conjunctival injection, periorbital swelling ENT exam: Present: normal exam, mucous membranes moist Neck exam: Present: normal inspection. Absent: tenderness, meningismus, lymphadenopathy Respiratory exam: Present: normal lung sounds bilaterally. Absent: respiratory distress, wheezes, rales, rhonchi, stridor Cardiovascular Exam: Present: regular rate, normal rhythm, normal heart sounds. Absent: systolic murmur, diastolic murmur, rubs, gallop, clicks GI/Abdominal exam: Present: soft, normal bowel sounds. Absent: distended, tenderness, guarding, rebound, rigid Extremities exam: Present: normal inspection, full ROM, normal capillary refill. Absent: tenderness, pedal edema, joint swelling, calf tenderness Back exam: Present: normal inspection Neurological exam: Present: alert, oriented X3, CN II-XII intact Psychiatric exam: Present: normal affect, normal mood Skin exam: Present: warm, dry, intact, normal color. Absent: rash Course Vital Signs 01/17/17 01/17/17 01/17/17 01:05 02:08 02:51 Temperature 98.8 F Pulse Rate 112 H 95 91 Respiratory 20 18 18 Rate Blood Pressure 220/129 200/121 171/100 O2 Sat by Pulse 99 98 99 Oximetry 01/17/17 03:42 Temperature Pulse Rate 93 Respiratory 18 Rate Blood Pressure 199/132 O2 Sat by Pulse Oximetry Medical Decision Making - Medical Decision Making This is a 26-year-old male with end-stage renal disease secondary to poorly controlled insulin dependent diabetes will need to the emergency department for frequent abdominal pain. Patient reports he's had increased abdominal pain over the past 2 days. Patient was seen 4 days ago for similar symptoms. Patient states that the pain is in the mid abdomen is a burning sharp sensation. Patient reports he has not been able to eat over the past 2 days. He reports he took his blood sugar 2 days ago and it was 96. Lab work is reviewed and show significant elevation of BUN/creatinine. Again patient did miss his dialysis today. No evidence of any other acute abnormalities. KUB x- ray did show an initia right lower lobe infiltrate or atelectasis. At that time I did do a chest x-ray which shows evidence of congestive failure fluid overload with pulmonary vascular congestion. This would be consistent with his end-stage renal disease. Patient was then reevaluated and given hydralazine, labetalol and clonidine for his blood pressure. Discussed that he needs to follow-up and to actually completed his dialysis treatments. Discussed calling dialysis unit tomorrow for an appointment, and to remain compliant with his medications. Patient agrees. I discussed this case with with Dr. Javed as well as discussed the elevated creatinine, again patient should follow-up with his dialysis. Patient understands treatment plan will comply. He will be discharged home at this time. - Lab Data Result diagrams: 01/17/17 01:55 01/17/17 01:55 Lab Results 01/17/17 01/17/17 01/17/17 Range/Units 01:11 01:55 01:55 WBC (3.8-10.6) k/uL RBC (4.30-5.90) m/uL Hgb (13.0-17.5) gm/dL Hct (39.0-53.0) % MCV (80.0-100.0) fL MCH (25.0-35.0) pg MCHC (31.0-37.0) g/dL RDW (11.5-15.5) % Plt Count (150-450) k/uL Neutrophils % % Lymphocytes % % Monocytes % % Eosinophils % % Basophils % % Neutrophils # (1.3-7.7) k/uL Lymphocytes # (1.0-4.8) k/uL Monocytes # (0-1.0) k/uL Eosinophils # (0-0.7) k/uL Basophils # (0-0.2) k/uL Hypochromasia Anisocytosis Sodium 140 (137-145) mmol/L Potassium 4.1 (3.5-5.1) mmol/L Chloride 103 (98-107) mmol/L Carbon Dioxide 25 (22-30) mmol/L Anion Gap 12 mmol/L BUN 61 H (9-20) mg/dL Creatinine 16.70 H* (0.66-1.25) mg/dL Est GFR (MDRD) Af Amer 4 (>60 ml/min/1.73 sqM) Est GFR (MDRD) Non-Af 4 (>60 ml/min/1.73 sqM) Glucose 134 H (74-99) mg/dL POC Glucose (mg/dL) 134 H (75-99) mg/dL POC Glu Clinical Practice Consultant ID Stephen Wray Plasma Lactic Acid Rakan 1.3 (0.7-2.0) mmol/L Calcium 8.7 (8.4-10.2) mg/dL Magnesium 3.1 H (1.6-2.3) mg/dL Total Bilirubin 0.9 (0.2-1.3) mg/dL AST 20 (17-59) U/L ALT 37 (21-72) U/L Alkaline Phosphatase 119 (38-126) U/L Total Protein 6.4 (6.3-8.2) g/dL Albumin 3.4 L (3.5-5.0) g/dL Amylase 61 (30-110) U/L Lipase 39 (23-300) U/L Acetone, Qual Negative (Negative) 01/17/17 Range/Units 01:55 WBC 6.7 (3.8-10.6) k/uL RBC 2.92 L (4.30-5.90) m/uL Hgb 8.3 L (13.0-17.5) gm/dL Hct 26.3 L (39.0-53.0) % MCV 90.0 (80.0-100.0) fL MCH 28.5 (25.0-35.0) pg MCHC 31.7 (31.0-37.0) g/dL RDW 16.1 H (11.5-15.5) % Plt Count 255 (150-450) k/uL Neutrophils % 74 % Lymphocytes % 17 % Monocytes % 5 % Eosinophils % 3 % Basophils % 1 % Neutrophils # 5.0 (1.3-7.7) k/uL Lymphocytes # 1.1 (1.0-4.8) k/uL Monocytes # 0.3 (0-1.0) k/uL Eosinophils # 0.2 (0-0.7) k/uL Basophils # 0.0 (0-0.2) k/uL Hypochromasia Slight Anisocytosis Slight Sodium (137-145) mmol/L Potassium (3.5-5.1) mmol/L Chloride (98-107) mmol/L Carbon Dioxide (22-30) mmol/L Anion Gap mmol/L BUN (9-20) mg/dL Creatinine (0.66-1.25) mg/dL Est GFR (MDRD) Af Amer (>60 ml/min/1.73 sqM) Est GFR (MDRD) Non-Af (>60 ml/min/1.73 sqM) Glucose (74-99) mg/dL POC Glucose (mg/dL) (75-99) mg/dL POC Glu Clinical Practice Consultant ID Plasma Lactic Acid Rakan (0.7-2.0) mmol/L Calcium (8.4-10.2) mg/dL Magnesium (1.6-2.3) mg/dL Total Bilirubin (0.2-1.3) mg/dL AST (17-59) U/L ALT (21-72) U/L Alkaline Phosphatase (38-126) U/L Total Protein (6.3-8.2) g/dL Albumin (3.5-5.0) g/dL Amylase (30-110) U/L Lipase (23-300) U/L Acetone, Qual (Negative) - Radiology Data Radiology results: report reviewed Chest x-ray shows fluids most suggestive of congestive heart failure fluid overload with pulmonary vascular congestion, mild interstitial pulmonary edema and bilateral pleural effusions. Superimposed right lower lobe pneumonia cannot be excluded. KUB was negative for any acute process besides medial right lung base opacity which may be might right base infiltrate or atelectasis. Disposition Clinical Impression: Abdominal pain, Acute on chronic renal failure, Uncontrolled hypertension Disposition: HOME SELF-CARE Condition: Good Instructions: Acute Nausea and Vomiting (ED) Additional Instructions: Patient is to follow-up with dialysis tomorrow. Follow-up your provider or return if there is any worsening signs or symptoms occur. Referrals: Myron Bailey DO [Primary Care Provider] - 1-2 days Time of Disposition: 03:59
[2017-01-17] MEDS ORDERED: SODIUM CHLORIDE 0.9% 1,000 ML IV STA (01:33)
[2017-01-17] MEDS ORDERED: METOCLOPRAMIDE 5 MG/ML 2 ML VIAL IVP STA (01:33)
[2017-01-17] MEDS ORDERED: diphenhydrAMINE 50 MG/ML 1 ML VIAL IVP STA (01:33)
[2017-01-17] MEDS ORDERED: HYDROmorphone 1 MG/ML 1 ML SYRINGE IVP STA (01:33)
[2017-01-17] MEDS ORDERED: LABETALOL 5 MG/ML VIAL MDV IVP STA (01:55)
[2017-01-17] MEDS ORDERED: cloNIDine HCL 0.2 MG TAB PO STA (01:55)
[2017-01-17] MEDS ORDERED: cloNIDine HCL 0.1 MG TAB PO STA (02:01)
[2017-01-17 02:03] LABS: Anisocytosis Slight; Basophils % (A) 1 %; CH 27.8; Eosinophils # (A) 0.2 k/uL (0-0.7); Eosinophils % (A) 3 %; HCT 26.3 % (39.0-53.0); HDW 2.46; HGB 8.3 gm/dL (13.0-17.5); Hypochromasia Slight; Luc # (Auto) 0.07; Luc % (Auto) 1; Lymphocytes # (A) 1.1 k/uL (1.0-4.8); Lymphocytes % (A) 17 %; MCH 28.5 pg (25.0-35.0); MCHC 31.7 g/dL (31.0-37.0); Mean Platelet Volume 7.8; Monocytes # (A) 0.3 k/uL (0-1.0); Monocytes % (A) 5 %; Neutrophils % (A) 74 %; RBC 2.92 m/uL (4.30-5.90); RDW 16.1 % (11.5-15.5); WBC 6.7 k/uL (3.8-10.6); WBC (Perox) 6.47
[2017-01-17 02:09] VITALS: RESP 18
[2017-01-17 02:15] LABS: ALT 37 U/L (21-72); AST 20 U/L (17-59); Alkaline Phosphatase 119 U/L (38-126); Amylase 61 U/L (30-110); Anion Gap 12 mmol/L; Blood Urea Nitrogen 61 mg/dL (9-20); Calcium 8.7 mg/dL (8.4-10.2); Carbon Dioxide 25 mmol/L (22-30); Chloride 103 mmol/L (98-107); Glucose 134 mg/dL (74-99); Magnesium 3.1 mg/dL (1.6-2.3); Potassium 4.1 mmol/L (3.5-5.1); Sodium 140 mmol/L (137-145); Total Bilirubin 0.9 mg/dL (0.2-1.3); Total Protein 6.4 g/dL (6.3-8.2)
[2017-01-17 02:25] LABS: Non-African American GFR(MDRD) 4 (>60 ml/min/1.73 sqM)
--- NOTE | 2017-01-17 02:35 | XR ---
EXAM: XR Abdomen, 1 View CLINICAL HISTORY: Reason: pain TECHNIQUE: Frontal upright view of the abdomen/pelvis. COMPARISON: Abdominal radiograph 01/12/2017 FINDINGS: Lower thorax: Indwelling central venous catheter extends to region of right atrium. Mild increased opacity in the medial right lung base suggesting infiltrate or partial atelectasis which is new since prior study of 01/12/2017. No definite evidence of pneumoperitoneum although right hemidiaphragm soften visualized. Gastrointestinal tract: Bowel gas pattern is unremarkable. No evidence of bowel obstruction. Organs: No radiopaque renal calculi. No abnormal calcifications in the abdomen or pelvis. Bones/joints: Unremarkable. IMPRESSION: Medial right lung base opacity suggesting developing mild right base infiltrate or partial atelectasis. No radiographic evidence of acute abdominal disease or bowel obstruction.
[2017-01-17] MEDS ORDERED: MORPHINE SULFATE 4 MG/ML SYRINGE IVP STA (03:17)
--- NOTE | 2017-01-17 03:27 | XR ---
EXAM: XR Chest, 2 Views CLINICAL HISTORY: Reason: Pain TECHNIQUE: Frontal and lateral views of the chest. COMPARISON: Chest radiographs 12/21/2016 FINDINGS: Lungs: Pulmonary vascular congestion. Interstitial opacities throughout both lungs most suggestive of mild interstitial pulmonary edema. Asymmetric right basilar opacity may also be related to pulmonary edema, but cannot exclude superimposed infiltrate. Pleural space: Small bilateral pleural effusions. No pneumothorax. Heart: Heart size upper limits of normal. Mediastinum: Unremarkable. Bones/joints: Unremarkable. Tubes, lines and devices: Central venous catheter extends to region of right atrium. Other findings: Similar findings are evident on prior study of 12/21/2016. IMPRESSION: Findings most suggestive of congestive failure/fluid overload with pulmonary vascular congestion, mild interstitial pulmonary edema and small bilateral pleural effusions. Superimposed right lower lobe infiltrate/pneumonia cannot be excluded. Clinical correlation recommended.
[2017-01-17] MEDS ORDERED: SODIUM CHLORIDE 0.9% 1,000 ML IV ONE (03:35)
[2017-01-17] MEDS ORDERED: hydrALAZINE HCL 20 MG/ML 1 ML VIAL IVP STA (03:50)
[2017-01-17 04:24] VITALS: BP 177/101; PULSE 82
== END 2017-01-17 04:24 | disposition home or self-care (01) ==
LOC: EC 01:03
DX: N17.9 Acute kidney failure, unspecified (principal); E10.22 Type 1 diabetes mellitus with diabetic chronic kidney disease; I12.0 Hypertensive chronic kidney disease with stage 5 chronic kidney disease or end stage renal disease; N18.6 End stage renal disease; R10.9 Unspecified abdominal pain; K21.9 Gastro-esophageal reflux disease without esophagitis; F32.9 Major depressive disorder, single episode, unspecified; E10.43 Type 1 diabetes mellitus with diabetic autonomic (poly)neuropathy; K31.84 Gastroparesis; E10.40 Type 1 diabetes mellitus with diabetic neuropathy, unspecified; Z99.2 Dependence on renal dialysis; Z79.4 Long term (current) use of insulin; Z90.49 Acquired absence of other specified parts of digestive tract; Z79.899 Other long term (current) drug therapy
CPT/HCPCS: 36415; 80053; 82150; 82009; 83605; 83690; 83735; 85025; 71020; 74000; 99284; 96374; 96375 ×5; 96361 ×3; J2270; J0360; J1200; J2765; J1170

== ENCOUNTER 2017-01-18 22:25 | Emergency (ER) | payer OTHER ==
[2017-01-18 22:49] VITALS: RESP 18
[2017-01-19] MEDS ORDERED: SODIUM CHLORIDE 0.9% 1,000 ML IV ONE (00:19)
[2017-01-19] MEDS ORDERED: ONDANSETRON 4 MG/2 ML VIAL IVP STA (00:19)
[2017-01-19] MEDS ORDERED: FAMOTIDINE 20 MG/2 ML VIAL IV STA (00:19)
--- NOTE | 2017-01-19 00:22 | ED ---
General Adult HPI - General Chief complaint: Nausea/Vomiting/Diarrhea Stated complaint: abdominal pain Time Seen by Provider: 01/18/17 22:50 Source: patient, RN notes reviewed Mode of arrival: ambulatory Limitations: no limitations - History of Present Illness Initial comments: This is a 26-year-old male who has a past medical history significant for diabetes and renal failure. Patient comes in today because she's having nausea and vomiting and some abdominal cramping. Patient states the abdominal pain is typical pain he gets when he has his nausea and vomiting. Patient denies any fever or chills per patient denies any chest pain difficulty breathing or shortness of breath. Patient states his sugars have been good when he's been taking them at home. Patient denies any dysuria hematuria urinary frequency. Patient denies any recent injury or trauma. Patient states this is his typical cyclic nausea and vomiting that he has been getting for quite a few years. - Related Data Home Medications Medication Instructions Recorded Confirmed Insulin Glargine [Lantus] 18 unit SQ HS 06/06/15 01/17/17 buPROPion SR [Wellbutrin SR] 150 mg PO BID 06/18/15 01/17/17 INSULIN LISPRO (HumaLOG) [humaLOG] 4 units SQ AC-TID 10/16/16 01/17/17 Lisinopril [Zestril] 20 mg PO BID 10/16/16 01/17/17 Metoclopramide HCl [Reglan] 5 mg PO TID 10/16/16 01/17/17 Ranitidine HCl [Zantac] 150 mg PO HS 10/16/16 01/17/17 Potassium Chloride ER [K-Dur 20] 20 meq PO DAILY 10/20/16 01/17/17 Ergocalciferol (Vitamin D2) 50,000 unit PO MO 10/26/16 01/17/17 [Vitamin D2] oxyCODONE-APAP 5-325MG [Percocet 1 tab PO Q4HR PRN 12/10/16 01/17/17 5-325 mg] amLODIPine [Norvasc] 10 mg PO DAILY 12/15/16 01/17/17 Ciprofloxacin HCl [Cipro] 250 mg PO Q12H 01/13/17 01/17/17 Previous Rx's Medication Instructions Recorded Metoprolol Tartrate [Lopressor] 100 mg PO BID #60 tab 07/16/15 Ondansetron Odt [Zofran ODT] 4 mg PO Q8HR PRN #15 tab 08/03/16 Calcium Acetate [PhosLo] 667 mg PO TID-W/MEALS #90 cap 11/21/16 Allergies Allergy/AdvReac Type Severity Reaction Status Date / Time No Known Allergies Allergy Verified 01/18/17 22:49 Review of Systems ROS Statement: Those systems with pertinent positive or pertinent negative responses have been documented in the HPI. ROS Other: All systems not noted in ROS Statement are negative. Past Medical History Past Medical History: Asthma, Diabetes Mellitus, GERD/Reflux, Hypertension, Osteoarthritis (OA), Renal Disease Additional Past Medical History / Comment(s): IDDM type I, GASTROPARESIS, gastritis, esophagitis,cyclic vomiting syndrome, DKA episodes, hiatal hernia, as child had seizure r/t high fever, pancreatits(idiopathic), chronic kidney disease stage III-hemodialysis M//Saturday, L leg neuropathy, migraines. History of Any Multi-Drug Resistant Organisms: MRSA Date of last positivie culture/infection: MDRO Source:: CHIN/ Rt leg Past Surgical History: Cholecystectomy, Orthopedic Surgery, Tonsillectomy Additional Past Surgical History / Comment(s): R upper chest hemodialysis catheter, PICC line, LEFT ELBOW pinned, egd's w/ bx's last done 05-30-16.12-07-16 picc line exchange. Past Anesthesia/Blood Transfusion Reactions: No Reported Reaction Past Psychological History: ADD/ADHD, Anxiety, Depression Smoking Status: Former smoker Past Alcohol Use History: None Reported Past Drug Use History: None Reported - Past Family History Mother Family Medical History: Diabetes Mellitus Additional Family Medical History / Comment(s): heart problems-(pt not sure what they were) Father Family Medical History: Diabetes Mellitus General Exam - General Exam Comments Initial Comments: GENERAL: Patient is well-developed and well-nourished. Patient is nontoxic and well- hydrated and is in mild distress. ENT: Neck is soft and supple. No significant lymphadenopathy is noted. Oropharynx is clear. Moist mucous membranes. Neck has full range of motion without eliciting any pain. EYES: The sclera were anicteric and conjunctiva were pink and moist. Extraocular movements were intact and pupils were equal round and reactive to light. Eyelids were unremarkable. PULMONARY: Unlabored respirations. Good breath sounds bilaterally. No audible rales rhonchi or wheezing was noted. CARDIOVASCULAR: There is a regular rate and rhythm without any murmurs gallops or rubs. ABDOMEN: Mild right upper abdominal tenderness. No palpable organomegaly was noted. There is no palpable pulsatile mass. SKIN: Skin is clear with no lesions or rashes and otherwise unremarkable. NEUROLOGIC: Patient is alert and oriented x3. Cranial nerves II through XII are grossly intact. Motor and sensory are also intact. Normal speech, volume and content. Symmetrical smile. MUSCULOSKELETAL: Normal extremities with adequate strength and full range of motion. No lower extremity swelling or edema. No calf tenderness. LYMPHATICS: No significant lymphadenopathy is noted PSYCHIATRIC: Normal psychiatric evaluation. Normal interpersonal interactions appears functionally intact in deals appropriately with others. No signs of depression. No signs of anxiety. Limitations: no limitations Course Vital Signs 01/18/17 22:48 Temperature 99 F Pulse Rate 99 Respiratory 18 Rate Blood Pressure 201/122 O2 Sat by Pulse 100 Oximetry Medical Decision Making - Medical Decision Making I went back in the room to reevaluate the patient he was sleeping soundly I needed to shake the patient to arouse. No significant edema and pain medicine. I told me won't get any narcotics from me he told me everybody else get some Dilaudid. - Lab Data Result diagrams: 01/19/17 01:00 01/19/17 01:00 Lab Results 01/19/17 01/19/17 Range/Units 01:00 01:00 WBC 5.8 (3.8-10.6) k/uL RBC 2.87 L (4.30-5.90) m/uL Hgb 8.3 L (13.0-17.5) gm/dL Hct 26.3 L (39.0-53.0) % MCV 91.4 (80.0-100.0) fL MCH 28.9 (25.0-35.0) pg MCHC 31.6 (31.0-37.0) g/dL RDW 16.6 H (11.5-15.5) % Plt Count 254 (150-450) k/uL Neutrophils % 62 % Lymphocytes % 24 % Monocytes % 7 % Eosinophils % 4 % Basophils % 1 % Neutrophils # 3.6 (1.3-7.7) k/uL Lymphocytes # 1.4 (1.0-4.8) k/uL Monocytes # 0.4 (0-1.0) k/uL Eosinophils # 0.3 (0-0.7) k/uL Basophils # 0.0 (0-0.2) k/uL Hypochromasia Slight Anisocytosis Slight Sodium 140 (137-145) mmol/L Potassium 4.3 (3.5-5.1) mmol/L Chloride 102 (98-107) mmol/L Carbon Dioxide 24 (22-30) mmol/L Anion Gap 14 mmol/L BUN 64 H (9-20) mg/dL Creatinine 17.20 H* (0.66-1.25) mg/dL Est GFR (MDRD) Af Amer 4 (>60 ml/min/1.73 sqM) Est GFR (MDRD) Non-Af 3 (>60 ml/min/1.73 sqM) Glucose 92 (74-99) mg/dL Calcium 8.6 (8.4-10.2) mg/dL Total Bilirubin 0.9 (0.2-1.3) mg/dL AST 17 (17-59) U/L ALT 35 (21-72) U/L Alkaline Phosphatase 116 (38-126) U/L Total Protein 6.3 (6.3-8.2) g/dL Albumin 3.2 L (3.5-5.0) g/dL Amylase 45 (30-110) U/L Lipase 32 (23-300) U/L Acetone, Qual Negative (Negative) Disposition Clinical Impression: Acute vomiting Disposition: HOME SELF-CARE Instructions: Acute Nausea and Vomiting (ED) Referrals: Myron Bailey DO [Primary Care Provider] - 1-2 days Time of Disposition: 02:11
[2017-01-19 01:12] LABS: Anisocytosis Slight; Basophils % (A) 1 %; CH 28.2; CHCM 31.1; Eosinophils # (A) 0.3 k/uL (0-0.7); Eosinophils % (A) 4 %; HCT 26.3 % (39.0-53.0); HDW 2.37; HGB 8.3 gm/dL (13.0-17.5); Hypochromasia Slight; Luc % (Auto) 2; Lymphocytes # (A) 1.4 k/uL (1.0-4.8); Lymphocytes % (A) 24 %; MCH 28.9 pg (25.0-35.0); MCHC 31.6 g/dL (31.0-37.0); MCV 91.4 fL (80.0-100.0); Mean Platelet Volume 7.9; Monocytes # (A) 0.4 k/uL (0-1.0); Monocytes % (A) 7 %; Neutrophils # (A) 3.6 k/uL (1.3-7.7); Neutrophils % (A) 62 %; RBC 2.87 m/uL (4.30-5.90); RDW 16.6 % (11.5-15.5); WBC 5.8 k/uL (3.8-10.6); WBC (Perox) 5.83
[2017-01-19 01:21] LABS: ALT 35 U/L (21-72); AST 17 U/L (17-59); Alkaline Phosphatase 116 U/L (38-126); Amylase 45 U/L (30-110); Anion Gap 14 mmol/L; Blood Urea Nitrogen 64 mg/dL (9-20); Calcium 8.6 mg/dL (8.4-10.2); Carbon Dioxide 24 mmol/L (22-30); Chloride 102 mmol/L (98-107); Glucose 92 mg/dL (74-99); Potassium 4.3 mmol/L (3.5-5.1); Sodium 140 mmol/L (137-145); Total Bilirubin 0.9 mg/dL (0.2-1.3); Total Protein 6.3 g/dL (6.3-8.2)
[2017-01-19 01:37] LABS: Non-African American GFR(MDRD) 3 (>60 ml/min/1.73 sqM)
[2017-01-19] MEDS ORDERED: KETOROLAC 30 MG/ML 1 ML VIAL IVP STA (02:10)
[2017-01-19 02:20] VITALS: BP 215/128; PULSE 100; TEMP 98.5
[2017-01-19] MEDS ORDERED: hydrALAZINE HCL 20 MG/ML 1 ML VIAL IVP STA (02:20)
== END 2017-01-19 02:28 | disposition home or self-care (01) ==
LOC: EC 22:25
DX: R11.2 Nausea with vomiting, unspecified (principal); R10.9 Unspecified abdominal pain; E10.22 Type 1 diabetes mellitus with diabetic chronic kidney disease; I12.9 Hypertensive chronic kidney disease with stage 1 through stage 4 chronic kidney disease, or unspecified chronic kidney disease; N18.3 Chronic kidney disease, stage 3 (moderate); F32.9 Major depressive disorder, single episode, unspecified; K21.9 Gastro-esophageal reflux disease without esophagitis; Z86.73 Personal history of transient ischemic attack (TIA), and cerebral infarction without residual deficits; Z87.891 Personal history of nicotine dependence; Z86.14 Personal history of Methicillin resistant Staphylococcus aureus infection; Z99.2 Dependence on renal dialysis; Z79.4 Long term (current) use of insulin; Z79.899 Other long term (current) drug therapy
CPT/HCPCS: 36415; 80053; 82150; 82009; 83690; 85025; 99284; 96374; 96375 ×3; 96361; J0360; J2405; J1885

== ENCOUNTER 2017-01-21 02:52 | Emergency (ER) | payer OTHER ==
[2017-01-21 02:57] VITALS: BP 205/103; PULSE 106; RESP 20; TEMP 99.4
--- NOTE | 2017-01-21 03:18 | ED ---
General Adult HPI - General Chief complaint: Nausea/Vomiting/Diarrhea Stated complaint: NV,ABD PAIN Time Seen by Provider: 01/21/17 03:00 Source: patient, RN notes reviewed Mode of arrival: ambulatory Limitations: no limitations - History of Present Illness Initial comments: 26-year-old male presents to the emergency department with a chief complaint nausea vomiting abdominal pain. Patient suffers from this chronically. He is a chronic dialysis patient as well as has type 1 diabetes. Patient states that he is in one of his chronic flareups. Patient states that he has been going to dialysis. Patient states that his home care nurse tells him to go to the ER if he has a flareup. Patient states he just felt this large nitrites we thought that he should be seen. Patient states he has moderate pain in his abdomen. Patient denies any recent fever, chills, shortness of breath, chest pain, back pain, numbness or tingling, dysuria or hematuria, constipation or diarrhea, headaches or visual changes, or any other current symptoms. - Related Data Home Medications Medication Instructions Recorded Confirmed Insulin Glargine [Lantus] 18 unit SQ HS 06/06/15 01/17/17 buPROPion SR [Wellbutrin SR] 150 mg PO BID 06/18/15 01/17/17 INSULIN LISPRO (HumaLOG) [humaLOG] 4 units SQ AC-TID 10/16/16 01/17/17 Lisinopril [Zestril] 20 mg PO BID 10/16/16 01/17/17 Metoclopramide HCl [Reglan] 5 mg PO TID 10/16/16 01/17/17 Ranitidine HCl [Zantac] 150 mg PO HS 10/16/16 01/17/17 Potassium Chloride ER [K-Dur 20] 20 meq PO DAILY 10/20/16 01/17/17 Ergocalciferol (Vitamin D2) 50,000 unit PO MO 10/26/16 01/17/17 [Vitamin D2] oxyCODONE-APAP 5-325MG [Percocet 1 tab PO Q4HR PRN 12/10/16 01/17/17 5-325 mg] amLODIPine [Norvasc] 10 mg PO DAILY 12/15/16 01/17/17 Ciprofloxacin HCl [Cipro] 250 mg PO Q12H 01/13/17 01/17/17 Previous Rx's Medication Instructions Recorded Metoprolol Tartrate [Lopressor] 100 mg PO BID #60 tab 07/16/15 Ondansetron Odt [Zofran ODT] 4 mg PO Q8HR PRN #15 tab 08/03/16 Calcium Acetate [PhosLo] 667 mg PO TID-W/MEALS #90 cap 11/21/16 Allergies Allergy/AdvReac Type Severity Reaction Status Date / Time No Known Allergies Allergy Verified 01/21/17 02:57 Review of Systems ROS Statement: Those systems with pertinent positive or pertinent negative responses have been documented in the HPI. ROS Other: All systems not noted in ROS Statement are negative. Past Medical History Past Medical History: Asthma, Diabetes Mellitus, GERD/Reflux, Hypertension, Osteoarthritis (OA), Renal Disease Additional Past Medical History / Comment(s): IDDM type I, GASTROPARESIS, gastritis, esophagitis,cyclic vomiting syndrome, DKA episodes, hiatal hernia, as child had seizure r/t high fever, pancreatits(idiopathic), chronic kidney disease stage III-hemodialysis //Saturday, L leg neuropathy, migraines. History of Any Multi-Drug Resistant Organisms: MRSA Date of last positivie culture/infection: MDRO Source:: CHIN/ Rt leg Past Surgical History: Cholecystectomy, Orthopedic Surgery, Tonsillectomy Additional Past Surgical History / Comment(s): R upper chest hemodialysis catheter, PICC line, LEFT ELBOW pinned, egd's w/ bx's last done 05-30-16.12-07-16 picc line exchange. Past Anesthesia/Blood Transfusion Reactions: No Reported Reaction Past Psychological History: ADD/ADHD, Anxiety, Depression Smoking Status: Former smoker Past Alcohol Use History: None Reported Past Drug Use History: None Reported - Past Family History Mother Family Medical History: Diabetes Mellitus Additional Family Medical History / Comment(s): heart problems-(pt not sure what they were) Father Family Medical History: Diabetes Mellitus General Exam Limitations: no limitations General appearance: alert, in no apparent distress Head exam: Present: atraumatic, normocephalic, normal inspection ENT exam: Present: normal exam, mucous membranes moist Neck exam: Present: normal inspection. Absent: tenderness, meningismus, lymphadenopathy Respiratory exam: Present: normal lung sounds bilaterally. Absent: respiratory distress, wheezes, rales, rhonchi, stridor Cardiovascular Exam: Present: regular rate, normal rhythm, normal heart sounds. Absent: systolic murmur, diastolic murmur, rubs, gallop, clicks GI/Abdominal exam: Present: soft, normal bowel sounds. Absent: distended, tenderness, guarding, rebound, rigid Neurological exam: Present: alert, oriented X3 Psychiatric exam: Present: normal affect, normal mood Skin exam: Present: warm, dry, intact, normal color. Absent: rash Course Vital Signs 01/21/17 02:54 Temperature 99.4 F Pulse Rate 106 H Respiratory 20 Rate Blood Pressure 205/103 O2 Sat by Pulse 97 Oximetry Medical Decision Making - Medical Decision Making 26-year-old male presents to the emergency department with a chief complaint of abdominal pain. At this time we discussed the patient we would give him nausea medication and Pepcid to help with his discomfort. We discussed that we like to do labs to assess kidney function due to the fact he is a dialysis patient as well as his glucose. This and the patient stated that he needs narcotics in our to treat his pain. He states that he normally gets Dilaudid. We discussed will not be giving him this specific medication we will try other medications to help with this pain at this time and see how he progresses. The patient then reset that he will leave [place]. Going to give him narcotics he would rather go to [facility] where he will receive these he does not want our care here. At this time we did discuss that his blood pressure is high we did discuss that this could lead to stroke heart attack as well as even . We discussed that this is a serious issue. The patient states that if we were not going to give him narcotics he will be leaving. At this time the patient proceeded to leave the emergency department. Disposition Clinical Impression: Chronic abdominal pain, Drug-seeking behavior Disposition: Left Against Medical Advice Referrals: Myron Bailey DO [Primary Care Provider] - 1-2 days
== END 2017-01-21 03:15 | disposition left against medical advice (07) ==
LOC: EC 02:52
DX: R10.9 Unspecified abdominal pain (principal); G89.29 Other chronic pain; Z76.5 Malingerer [conscious simulation]; R11.2 Nausea with vomiting, unspecified; E10.22 Type 1 diabetes mellitus with diabetic chronic kidney disease; I12.9 Hypertensive chronic kidney disease with stage 1 through stage 4 chronic kidney disease, or unspecified chronic kidney disease; N18.3 Chronic kidney disease, stage 3 (moderate); K21.9 Gastro-esophageal reflux disease without esophagitis; F32.9 Major depressive disorder, single episode, unspecified; Z90.49 Acquired absence of other specified parts of digestive tract; Z53.29 Procedure and treatment not carried out because of patient's decision for other reasons; Z99.2 Dependence on renal dialysis; Z79.4 Long term (current) use of insulin; Z87.891 Personal history of nicotine dependence; Z79.899 Other long term (current) drug therapy
CPT/HCPCS: 99283

== ENCOUNTER 2017-01-26 22:52 | Emergency (ER) | payer OTHER ==
[2017-01-26 23:00] VITALS: RESP 18; TEMP 99.6
[2017-01-27] MEDS ORDERED: HYDROmorphone 1 MG/ML 1 ML SYRINGE IVP STA ×2 (00:07→01:44)
[2017-01-27] MEDS ORDERED: FAMOTIDINE 20 MG/2 ML VIAL IV STA (00:08)
[2017-01-27] MEDS ORDERED: ONDANSETRON 4 MG/2 ML VIAL IVP STA (00:09)
[2017-01-27] MEDS ORDERED: hydrALAZINE HCL 20 MG/ML 1 ML VIAL IVP STA (00:10)
--- NOTE | 2017-01-27 00:16 | ED ---
Abdominal Pain HPI - General Chief Complaint: Abdominal Pain Stated Complaint: Vomiting Time Seen by Provider: 01/26/17 23:44 Source: patient, RN notes reviewed Mode of arrival: ambulatory Limitations: no limitations - History of Present Illness Initial Comments: Patient is a 26-year-old male since emergency room for evaluation of abdominal pain, nausea and vomiting. Patient has history of diabetes, end-stage renal failure and is on dialysis. Patient states that he went to dialysis on Saturday. Patient states he tried to go on Saturday but was not feeling well so they discontinue the dialysis, 10 minutes in. Patient states she was supposed reschedule for today but was unable to schedule an appointment. Patient states he can't get into dialysis until Saturday. Patient states been having worsening diffuse abdominal pain. Patient states this pain is consistent with his normal pain. Patient also states he's been feeling dizzy with vomiting. Patient states she's been unable to take any of his pain medications or blood pressure medications due to vomiting. - Related Data Home Medications Medication Instructions Recorded Confirmed Insulin Glargine [Lantus] 18 unit SQ HS 06/06/15 01/17/17 buPROPion SR [Wellbutrin SR] 150 mg PO BID 06/18/15 01/17/17 INSULIN LISPRO (HumaLOG) [humaLOG] 4 units SQ AC-TID 10/16/16 01/17/17 Lisinopril [Zestril] 20 mg PO BID 10/16/16 01/17/17 Metoclopramide HCl [Reglan] 5 mg PO TID 10/16/16 01/17/17 Ranitidine HCl [Zantac] 150 mg PO HS 10/16/16 01/17/17 Potassium Chloride ER [K-Dur 20] 20 meq PO DAILY 10/20/16 01/17/17 Ergocalciferol (Vitamin D2) 50,000 unit PO MO 10/26/16 01/17/17 [Vitamin D2] oxyCODONE-APAP 5-325MG [Percocet 1 tab PO Q4HR PRN 12/10/16 01/17/17 5-325 mg] amLODIPine [Norvasc] 10 mg PO DAILY 12/15/16 01/17/17 Ciprofloxacin HCl [Cipro] 250 mg PO Q12H 01/13/17 01/17/17 Previous Rx's Medication Instructions Recorded Metoprolol Tartrate [Lopressor] 100 mg PO BID #60 tab 07/16/15 Ondansetron Odt [Zofran ODT] 4 mg PO Q8HR PRN #15 tab 08/03/16 Calcium Acetate [PhosLo] 667 mg PO TID-W/MEALS #90 cap 11/21/16 Allergies Allergy/AdvReac Type Severity Reaction Status Date / Time No Known Allergies Allergy Verified 01/26/17 22:56 Review of Systems ROS Statement: Those systems with pertinent positive or pertinent negative responses have been documented in the HPI. ROS Other: All systems not noted in ROS Statement are negative. Past Medical History Past Medical History: Asthma, Diabetes Mellitus, GERD/Reflux, Hypertension, Osteoarthritis (OA), Renal Disease Additional Past Medical History / Comment(s): IDDM type I, GASTROPARESIS, gastritis, esophagitis,cyclic vomiting syndrome, DKA episodes, hiatal hernia, as child had seizure r/t high fever, pancreatits(idiopathic), chronic kidney disease stage III-hemodialysis //Saturday, L leg neuropathy, migraines. dialysis History of Any Multi-Drug Resistant Organisms: MRSA Date of last positivie culture/infection: MDRO Source:: CHIN/ Rt leg Past Surgical History: Cholecystectomy, Orthopedic Surgery, Tonsillectomy Additional Past Surgical History / Comment(s): R upper chest hemodialysis catheter, PICC line, LEFT ELBOW pinned, egd's w/ bx's last done 05-30-16.12-07-16 picc line exchange. Past Anesthesia/Blood Transfusion Reactions: No Reported Reaction Past Psychological History: ADD/ADHD, Anxiety, Depression Smoking Status: Former smoker Past Alcohol Use History: None Reported Past Drug Use History: None Reported - Past Family History Mother Family Medical History: Diabetes Mellitus Additional Family Medical History / Comment(s): heart problems-(pt not sure what they were) Father Family Medical History: Diabetes Mellitus General Exam - General Exam Comments Initial Comments: Sitting in exam room, no distress. Limitations: no limitations General appearance: alert, in no apparent distress Head exam: Present: atraumatic, normocephalic, normal inspection Eye exam: Present: normal appearance ENT exam: Present: normal exam Neck exam: Present: normal inspection Respiratory exam: Present: normal lung sounds bilaterally. Absent: respiratory distress Cardiovascular Exam: Present: regular rate, normal rhythm, normal heart sounds GI/Abdominal exam: Present: soft, tenderness (Diffuse), normal bowel sounds. Absent: distended, guarding, rebound, rigid Extremities exam: Present: normal inspection Back exam: Present: normal inspection Neurological exam: Present: alert, oriented X3, CN II-XII intact, normal gait Psychiatric exam: Present: normal affect, normal mood Skin exam: Present: warm, dry, intact, normal color. Absent: rash Course Vital Signs 01/26/17 01/27/17 01/27/17 22:56 00:14 00:20 Temperature 99.6 F Pulse Rate 100 103 H 98 Respiratory 18 18 18 Rate Blood Pressure 187/123 205/126 187/123 O2 Sat by Pulse 98 99 96 Oximetry 01/27/17 01/27/17 01/27/17 00:23 01:01 01:52 Temperature Pulse Rate 95 97 100 Respiratory 18 18 18 Rate Blood Pressure 177/107 182/116 175/108 O2 Sat by Pulse 95 95 94 L Oximetry Medical Decision Making - Medical Decision Making Patient is a 26 showed mild since emergency room for evaluation of abdominal pain, nausea and vomiting. Patient is alert and oriented. Acetone negative. Patient states he is feeling better after medications given. Advised patient to follow-up with primary care provider. Return parameters discussed. Case discussed Dr. Ponce. - Lab Data Result diagrams: 01/26/17 23:13 01/26/17 23:13 Lab Results 01/26/17 01/26/17 Range/Units 23:13 23:13 WBC 5.9 (3.8-10.6) k/uL RBC 2.93 L (4.30-5.90) m/uL Hgb 8.2 L (13.0-17.5) gm/dL Hct 26.8 L (39.0-53.0) % MCV 91.5 (80.0-100.0) fL MCH 27.9 (25.0-35.0) pg MCHC 30.5 L (31.0-37.0) g/dL RDW 16.5 H (11.5-15.5) % Plt Count 265 (150-450) k/uL Neutrophils % 73 % Lymphocytes % 17 % Monocytes % 5 % Eosinophils % 3 % Basophils % 0 % Neutrophils # 4.3 (1.3-7.7) k/uL Lymphocytes # 1.0 (1.0-4.8) k/uL Monocytes # 0.3 (0-1.0) k/uL Eosinophils # 0.2 (0-0.7) k/uL Basophils # 0.0 (0-0.2) k/uL Hypochromasia Slight Anisocytosis Slight Sodium 140 (137-145) mmol/L Potassium 4.5 (3.5-5.1) mmol/L Chloride 104 (98-107) mmol/L Carbon Dioxide 22 (22-30) mmol/L Anion Gap 14 mmol/L BUN 75 H (9-20) mg/dL Creatinine 19.20 H* (0.66-1.25) mg/dL Est GFR (MDRD) Af Amer 4 (>60 ml/min/1.73 sqM) Est GFR (MDRD) Non-Af 3 (>60 ml/min/1.73 sqM) Glucose 137 H (74-99) mg/dL Calcium 8.2 L (8.4-10.2) mg/dL Magnesium 3.4 H (1.6-2.3) mg/dL Total Bilirubin 0.8 (0.2-1.3) mg/dL AST 15 L (17-59) U/L ALT 34 (21-72) U/L Alkaline Phosphatase 113 (38-126) U/L Total Protein 6.3 (6.3-8.2) g/dL Albumin 3.3 L (3.5-5.0) g/dL Amylase 62 (30-110) U/L Lipase 65 (23-300) U/L Acetone, Qual Negative (Negative) Disposition Clinical Impression: Abdominal pain, Chronic kidney disease Disposition: HOME SELF-CARE Condition: Good Instructions: Abdominal Pain (ED) Additional Instructions: Please follow up with primary care provider in 1-2 days. If any new symptom arises or symptoms worsen, return to ER as soon as possible. Referrals: Myron Bailey DO [Primary Care Provider] - 1-2 days Time of Disposition: 01:44
[2017-01-27 00:17] LABS: Anisocytosis Slight; Basophils % (A) 0 %; CHCM 30.8; Eosinophils # (A) 0.2 k/uL (0-0.7); Eosinophils % (A) 3 %; HCT 26.8 % (39.0-53.0); HDW 2.49; HGB 8.2 gm/dL (13.0-17.5); Hypochromasia Slight; Luc # (Auto) 0.08; Luc % (Auto) 1; Lymphocytes % (A) 17 %; MCH 27.9 pg (25.0-35.0); MCHC 30.5 g/dL (31.0-37.0); MCV 91.5 fL (80.0-100.0); Mean Platelet Volume 7.9; Monocytes # (A) 0.3 k/uL (0-1.0); Monocytes % (A) 5 %; Neutrophils # (A) 4.3 k/uL (1.3-7.7); Neutrophils % (A) 73 %; RBC 2.93 m/uL (4.30-5.90); RDW 16.5 % (11.5-15.5); WBC 5.9 k/uL (3.8-10.6); WBC (Perox) 6.23
[2017-01-27 00:39] LABS: ALT 34 U/L (21-72); AST 15 U/L (17-59); Alkaline Phosphatase 113 U/L (38-126); Amylase 62 U/L (30-110); Anion Gap 14 mmol/L; Blood Urea Nitrogen 75 mg/dL (9-20); Calcium 8.2 mg/dL (8.4-10.2); Carbon Dioxide 22 mmol/L (22-30); Chloride 104 mmol/L (98-107); Glucose 137 mg/dL (74-99); Magnesium 3.4 mg/dL (1.6-2.3); Potassium 4.5 mmol/L (3.5-5.1); Sodium 140 mmol/L (137-145); Total Bilirubin 0.8 mg/dL (0.2-1.3); Total Protein 6.3 g/dL (6.3-8.2)
[2017-01-27 00:54] LABS: Non-African American GFR(MDRD) 3 (>60 ml/min/1.73 sqM)
[2017-01-27 01:53] VITALS: BP 175/108; PULSE 100
== END 2017-01-27 01:56 | disposition home or self-care (01) ==
LOC: EC 22:52
DX: R10.84 Generalized abdominal pain (principal); R11.2 Nausea with vomiting, unspecified; R42 Dizziness and giddiness; J45.909 Unspecified asthma, uncomplicated; M19.90 Unspecified osteoarthritis, unspecified site; E10.22 Type 1 diabetes mellitus with diabetic chronic kidney disease; I12.9 Hypertensive chronic kidney disease with stage 1 through stage 4 chronic kidney disease, or unspecified chronic kidney disease; N18.3 Chronic kidney disease, stage 3 (moderate); E10.40 Type 1 diabetes mellitus with diabetic neuropathy, unspecified; K21.9 Gastro-esophageal reflux disease without esophagitis; F32.9 Major depressive disorder, single episode, unspecified; F41.9 Anxiety disorder, unspecified; F90.9 Attention-deficit hyperactivity disorder, unspecified type; Z87.891 Personal history of nicotine dependence; Z79.4 Long term (current) use of insulin; Z79.899 Other long term (current) drug therapy
CPT/HCPCS: 36415; 80053; 82150; 82009; 83690; 83735; 85025; 99284; 96374; 96375 ×3; 96376; J0360; J2405; J1170

== ENCOUNTER 2017-01-30 06:16 | Emergency (ER) | payer OTHER ==
[2017-01-30] MEDS ORDERED: SODIUM CHLORIDE 0.9% 1,000 ML IV STA (07:26)
[2017-01-30] MEDS ORDERED: ONDANSETRON 4 MG/2 ML VIAL IVP STA (07:26)
[2017-01-30] MEDS ORDERED: hydrALAZINE HCL 20 MG/ML 1 ML VIAL IVP STA (07:31)
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
[2017-01-30 07:58] LABS: Anisocytosis Slight; Basophils % (A) 1 %; CH 27.4; CHCM 30.4; Eosinophils # (A) 0.2 k/uL (0-0.7); Eosinophils % (A) 3 %; HCT 26.4 % (39.0-53.0); HDW 2.59; HGB 8.2 gm/dL (13.0-17.5); Hypochromasia Moderate; Luc # (Auto) 0.09; Luc % (Auto) 2; Lymphocytes # (A) 1.1 k/uL (1.0-4.8); Lymphocytes % (A) 19 %; MCH 28.1 pg (25.0-35.0); MCV 90.7 fL (80.0-100.0); Mean Platelet Volume 7.3; Monocytes # (A) 0.3 k/uL (0-1.0); Monocytes % (A) 6 %; Neutrophils # (A) 4.1 k/uL (1.3-7.7); Neutrophils % (A) 70 %; RBC 2.91 m/uL (4.30-5.90); RDW 16.6 % (11.5-15.5); WBC 5.9 k/uL (3.8-10.6); WBC (Perox) 6.24
[2017-01-30 08:12] LABS: ALT 37 U/L (21-72); AST 23 U/L (17-59); Alkaline Phosphatase 113 U/L (38-126); Amylase 50 U/L (30-110); Anion Gap 16 mmol/L; Blood Urea Nitrogen 76 mg/dL (9-20); Calcium 8.5 mg/dL (8.4-10.2); Carbon Dioxide 20 mmol/L (22-30); Chloride 104 mmol/L (98-107); Glucose 78 mg/dL (74-99); Potassium 4.7 mmol/L (3.5-5.1); Sodium 140 mmol/L (137-145); Total Bilirubin 1.3 mg/dL (0.2-1.3); Total Protein 6.5 g/dL (6.3-8.2)
[2017-01-30 08:20] LABS: Non-African American GFR(MDRD) 3 (>60 ml/min/1.73 sqM)
[2017-01-30] MEDS ORDERED: LABETALOL 5 MG/ML VIAL MDV IVP STA (08:49)
[2017-01-30] MEDS ORDERED: DEXTROSE 5%-0.9% NACL 1,000 ML IV SCH (09:15)
[2017-01-30 10:45] VITALS: BP 183/120; PULSE 90; RESP 17; TEMP 97.5
== END 2017-01-30 10:37 | disposition home or self-care (01) ==
LOC: EC 06:16
DX: I12.9 Hypertensive chronic kidney disease with stage 1 through stage 4 chronic kidney disease, or unspecified chronic kidney disease (principal); E11.22 Type 2 diabetes mellitus with diabetic chronic kidney disease; N18.3 Chronic kidney disease, stage 3 (moderate); Z76.5 Malingerer [conscious simulation]; J45.909 Unspecified asthma, uncomplicated; K21.9 Gastro-esophageal reflux disease without esophagitis; M19.90 Unspecified osteoarthritis, unspecified site; F90.9 Attention-deficit hyperactivity disorder, unspecified type; F41.9 Anxiety disorder, unspecified; F32.9 Major depressive disorder, single episode, unspecified; Z87.891 Personal history of nicotine dependence; Z79.4 Long term (current) use of insulin; Z79.899 Other long term (current) drug therapy
CPT/HCPCS: 36415; 80053; 82150; 82009; 83690; 85025; 99284; 96374; 96375 ×2; 96361 ×2; J0360; J2405

== ENCOUNTER 2017-03-09 01:20 | Emergency (ER) | payer OTHER ==
[2017-03-09 01:29] VITALS: TEMP 96.9
[2017-03-09] MEDS ORDERED: SODIUM CHLORIDE 0.9% 1,000 ML IV STA (02:07)
[2017-03-09] MEDS ORDERED: ONDANSETRON 4 MG/2 ML VIAL IVP STA (02:07)
[2017-03-09] MEDS ORDERED: HYDROmorphone 1 MG/ML 1 ML SYRINGE IVP STA (02:07)
[2017-03-09] MEDS ORDERED: LORazepam 2 MG/ML SYRINGE IV STA (02:08)
[2017-03-09] MEDS ORDERED: ACETAMINOPHEN IV (For NPO) 1,000 MG in EMPTY BAG 1 BAG IVPB STA (02:16)
[2017-03-09 02:26] LABS: Anisocytosis Slight; Basophils # (A) 0.1 k/uL (0-0.2); Basophils % (A) 1 %; CH 27.8; CHCM 30.7; Eosinophils # (A) 0.1 k/uL (0-0.7); Eosinophils % (A) 2 %; HCT 29.5 % (39.0-53.0); HDW 3.11; HGB 8.9 gm/dL (13.0-17.5); Hypochromasia Marked; Luc # (Auto) 0.08; Luc % (Auto) 2; Lymphocytes # (A) 0.8 k/uL (1.0-4.8); Lymphocytes % (A) 15 %; MCH 27.6 pg (25.0-35.0); MCHC 30.1 g/dL (31.0-37.0); MCV 91.5 fL (80.0-100.0); Mean Platelet Volume 8.3; Monocytes # (A) 0.3 k/uL (0-1.0); Monocytes % (A) 5 %; Neutrophils # (A) 4.1 k/uL (1.3-7.7); Neutrophils % (A) 76 %; RBC 3.22 m/uL (4.30-5.90); RDW 17.7 % (11.5-15.5); WBC 5.4 k/uL (3.8-10.6); WBC (Perox) 5.46
--- NOTE | 2017-03-09 02:57 | XR ---
EXAM: XR KUB, 1 View CLINICAL HISTORY: Reason: abdominal pain TECHNIQUE: Frontal upright view of the abdomen/pelvis. COMPARISON: 01/17/17 FINDINGS: Gastrointestinal tract: Nonobstructive bowel gas pattern. Organs: No organomegaly or soft tissue mass. Bones/joints: Unremarkable. Other findings: No abnormal abdominal calcifications are seen. IMPRESSION: No acute findings.
--- NOTE | 2017-03-09 03:10 | ED ---
Abdominal Pain HPI - General Chief Complaint: Abdominal Pain Stated Complaint: Abdominal Pain Time Seen by Provider: 03/09/17 01:37 Source: patient Mode of arrival: ambulatory Limitations: no limitations - History of Present Illness Initial Comments: 26-year-old male patient with a past medical history significant for diabetes, gastroparesis, chronic kidney failure with dialysis, and hypertension presented to emergency department today for evaluation of abdominal pain and back pain. Patient states that he does have chronic abdominal pain and vomiting related to his gastroparesis however this pain seems more severe. Patient states that he developed bilateral flank pain about 5 days ago which is new for him. States that the pain is worse on the left side. He states it feels very sharp like he is being stabbed, but also has an underlying general ache in his flanks that never goes away. Patient states that he does still produce urine and has not had any changes. Patient states that he did vomit a couple times today however did have dialysis and is not unusual for him to vomit after dialysis. Patient states he has been chilled and has had sweats. Patient denies any recent fever , shortness breath, chest pain, diarrhea, constipation, numbness, tingling, weakness, hematuria, headache, visual changes, or any other complaints. - Related Data Home Medications Medication Instructions Recorded Confirmed Insulin Glargine [Lantus] 18 unit SQ HS 06/06/15 03/09/17 buPROPion SR [Wellbutrin SR] 150 mg PO BID 06/18/15 03/09/17 INSULIN LISPRO (HumaLOG) [humaLOG] 4 units SQ AC-TID 10/16/16 03/09/17 Lisinopril [Zestril] 20 mg PO BID 10/16/16 03/09/17 Metoclopramide HCl [Reglan] 5 mg PO TID 10/16/16 03/09/17 Ranitidine HCl [Zantac] 150 mg PO HS 10/16/16 03/09/17 Potassium Chloride ER [K-Dur 20] 20 meq PO DAILY 10/20/16 03/09/17 Ergocalciferol (Vitamin D2) 50,000 unit PO MO 10/26/16 03/09/17 [Vitamin D2] oxyCODONE-APAP 5-325MG [Percocet 1 tab PO Q4HR PRN 12/10/16 03/09/17 5-325 mg] amLODIPine [Norvasc] 10 mg PO DAILY 12/15/16 03/09/17 Ciprofloxacin HCl [Cipro] 250 mg PO Q12H 01/13/17 03/09/17 Previous Rx's Medication Instructions Recorded Metoprolol Tartrate [Lopressor] 100 mg PO BID #60 tab 07/16/15 Ondansetron Odt [Zofran ODT] 4 mg PO Q8HR PRN #15 tab 08/03/16 Calcium Acetate [PhosLo] 667 mg PO TID-W/MEALS #90 cap 11/21/16 Ciprofloxacin HCl [Cipro] 500 mg PO Q12HR #14 tablet 03/09/17 Allergies Allergy/AdvReac Type Severity Reaction Status Date / Time No Known Allergies Allergy Verified 01/30/17 07:25 Review of Systems ROS Statement: Those systems with pertinent positive or pertinent negative responses have been documented in the HPI. ROS Other: All systems not noted in ROS Statement are negative. Past Medical History Past Medical History: Asthma, Diabetes Mellitus, GERD/Reflux, Hypertension, Osteoarthritis (OA), Renal Disease Additional Past Medical History / Comment(s): IDDM type I, GASTROPARESIS, gastritis, esophagitis,cyclic vomiting syndrome, DKA episodes, hiatal hernia, as child had seizure r/t high fever, pancreatits(idiopathic), chronic kidney disease stage III-hemodialysis //Saturday, L leg neuropathy, migraines. dialysis History of Any Multi-Drug Resistant Organisms: MRSA Date of last positivie culture/infection: MDRO Source:: CHIN/ Rt leg Past Surgical History: Cholecystectomy, Orthopedic Surgery, Tonsillectomy Additional Past Surgical History / Comment(s): R upper chest hemodialysis catheter, PICC line, LEFT ELBOW pinned, egd's w/ bx's last done 05-30-16.12-07-16 picc line exchange. Past Anesthesia/Blood Transfusion Reactions: No Reported Reaction Past Psychological History: ADD/ADHD, Anxiety, Depression Smoking Status: Former smoker Past Alcohol Use History: None Reported Past Drug Use History: None Reported - Past Family History Mother Family Medical History: Diabetes Mellitus Additional Family Medical History / Comment(s): heart problems-(pt not sure what they were) Father Family Medical History: Diabetes Mellitus General Exam Limitations: no limitations General appearance: alert, in no apparent distress Eye exam: Present: normal appearance, PERRL, EOMI. Absent: scleral icterus, conjunctival injection, periorbital swelling ENT exam: Present: normal exam, normal oropharynx, mucous membranes moist Neck exam: Present: normal inspection. Absent: tenderness, meningismus, lymphadenopathy Respiratory exam: Present: normal lung sounds bilaterally. Absent: respiratory distress, wheezes, rales, rhonchi, stridor Cardiovascular Exam: Present: regular rate, normal rhythm, normal heart sounds. Absent: systolic murmur, diastolic murmur, rubs, gallop, clicks GI/Abdominal exam: Present: soft, tenderness (Generalized), normal bowel sounds. Absent: distended, guarding, rebound, rigid Back exam: Present: normal inspection, tenderness, CVA tenderness (R), CVA tenderness (L). Absent: vertebral tenderness Neurological exam: Present: alert, oriented X3, CN II-XII intact Psychiatric exam: Present: normal affect, normal mood, agitated Skin exam: Present: warm, dry, intact, normal color. Absent: rash Course Vital Signs 03/09/17 03/09/17 03/09/17 01:25 03:20 04:17 Temperature 96.9 F L Pulse Rate 108 H 99 115 H Respiratory 20 16 17 Rate Blood Pressure 160/108 189/127 188/134 O2 Sat by Pulse 100 98 97 Oximetry 03/09/17 04:53 Temperature Pulse Rate 99 Respiratory 16 Rate Blood Pressure 183/128 O2 Sat by Pulse 98 Oximetry Medical Decision Making - Medical Decision Making 26 year-old male patient presents to emergency department today for evaluation of abdominal pain and flank pain. Lab work was performed and reviewed, no acute changes were noted. Patient does have a past medical history significant for chronic kidney failure, gastroparesis, abdominal pain, and vomiting. Urinalysis was performed which did show 4+ serum protein, 3+ urine glucose, small amount of blood, small amount of leukocyte esterase, 7 red blood cells, 99 white blood cells, less than 1 squamous epithelial cells, rare bacteria, 24 hyaline casts, and rare urine mucus. Patient will be treated with ciprofloxacin 500 mg 7 days outpatient. He will be referred to urology for further evaluation. Instructed to follow-up with his primary care physician for recheck in 1-2 days. During visit patient's blood pressure is also elevated which is not new for him. He states he has been taking his medications as directed. Patient was given an initial dose of 20 mg of labetalol, a repeat dose of 40 mg labetalol will be given as blood pressure remains elevated to 180/120. Case has been discussed with Dr. Hinton who will assume care, manage blood pressure, and follow case until discharge. - Lab Data Result diagrams: 03/09/17 02:01 03/09/17 02:01 Lab Results 03/09/17 03/09/17 03/09/17 Range/Units 02:01 02:01 04:17 WBC 5.4 (3.8-10.6) k/uL RBC 3.22 L (4.30-5.90) m/uL Hgb 8.9 L (13.0-17.5) gm/dL Hct 29.5 L (39.0-53.0) % MCV 91.5 (80.0-100.0) fL MCH 27.6 (25.0-35.0) pg MCHC 30.1 L (31.0-37.0) g/dL RDW 17.7 H (11.5-15.5) % Plt Count 227 (150-450) k/uL Neutrophils % 76 % Lymphocytes % 15 % Monocytes % 5 % Eosinophils % 2 % Basophils % 1 % Neutrophils # 4.1 (1.3-7.7) k/uL Lymphocytes # 0.8 L (1.0-4.8) k/uL Monocytes # 0.3 (0-1.0) k/uL Eosinophils # 0.1 (0-0.7) k/uL Basophils # 0.1 (0-0.2) k/uL Hypochromasia Marked Anisocytosis Slight Sodium 138 (137-145) mmol/L Potassium 3.8 (3.5-5.1) mmol/L Chloride 98 (98-107) mmol/L Carbon Dioxide 28 (22-30) mmol/L Anion Gap 12 mmol/L BUN 27 H (9-20) mg/dL Creatinine 7.60 H* (0.66-1.25) mg/dL Est GFR (MDRD) Af Amer 11 (>60 ml/min/1.73 sqM) Est GFR (MDRD) Non-Af 9 (>60 ml/min/1.73 sqM) Glucose 195 H (74-99) mg/dL Calcium 8.7 (8.4-10.2) mg/dL Total Bilirubin 0.9 (0.2-1.3) mg/dL AST 27 (17-59) U/L ALT 47 (21-72) U/L Alkaline Phosphatase 165 H (38-126) U/L Total Protein 6.2 L (6.3-8.2) g/dL Albumin 3.1 L (3.5-5.0) g/dL Amylase 113 H (30-110) U/L Lipase 237 (23-300) U/L Urine Color Yellow Urine Appearance Cloudy (Clear) Urine pH 8.0 (5.0-8.0) Ur Specific [place] 1.017 (1.001-1.035) Urine Protein 4+ H (Negative) Urine Glucose (UA) 3+ H (Negative) Urine Ketones Negative (Negative) Urine Blood Small H (Negative) Urine Nitrite Negative (Negative) Urine Bilirubin Negative (Negative) Urine Urobilinogen <2.0 (<2.0) mg/dL Ur Leukocyte Esterase Small H (Negative) Urine RBC 7 H (0-5) /hpf Urine WBC 99 H (0-5) /hpf Ur Squamous Epith Cells <1 (0-4) /hpf Urine Bacteria Rare H (None) /hpf Hyaline Casts 24 H (0-2) /lpf Urine Mucus Rare H (None) /hpf Disposition Clinical Impression: Urinary tract infection, Chronic abdominal pain Disposition: HOME SELF-CARE Condition: Good Instructions: Urinary Tract Infection in Men (ED), Abdominal Pain (ED) Additional Instructions: Increase fluids. Complete antibiotic prescription in full. Follow-up with urologist in one to 2 days for recheck. Follow up with her primary care physician one to 2 days for recheck. Return here immediately for any new, worsening, or concerning symptoms. Prescriptions: Ciprofloxacin HCl [Cipro] 500 mg PO Q12HR #14 tablet Referrals: Myron Bailey DO [Primary Care Provider] - 1-2 days Oswaldo Hopson MD [STAFF PHYSICIAN] - 1-2 days
[2017-03-09 03:22] LABS: Calcium 8.7 mg/dL (8.4-10.2); Potassium 3.8 mmol/L (3.5-5.1); Total Bilirubin 0.9 mg/dL (0.2-1.3); Total Protein 6.2 g/dL (6.3-8.2)
[2017-03-09] MEDS ORDERED: LABETALOL 5 MG/ML VIAL MDV IVP STA ×3 (04:04→05:39)
[2017-03-09 04:44] LABS: Appearance,Urine Cloudy (Clear); Bacteria,Urine Rare /hpf; Bilirubin,Urine Negative (Negative); Glucose,Urine (UA) 3+ (Negative); Ketones,Urine Negative (Negative); Leukocyte Esterase,Urine Small (Negative); Mucus,Urine Rare /hpf; Nitrite,Urine Negative (Negative); Particle Count 4357; Protein,Urine 4+ (Negative); RBC,Urine 7 /hpf (0-5); Specific Gravity,Urine 1.017 (1.001-1.035); Squamous Epithelial Cell,Urine <1 /hpf (0-4); UA Billing (MACRO vs. MICRO) MICRO; Urobilinogen,Urine <2.0 mg/dL (<2.0); WBC,Urine 99 /hpf (0-5)
[2017-03-09 04:54] VITALS: PULSE 99; RESP 16
[2017-03-09] MEDS ORDERED: CIPROFLOXACIN HCL 500 MG TAB PO STA (05:11)
[2017-03-09] MEDS ORDERED: METOCLOPRAMIDE 5 MG/ML 2 ML VIAL IVP STA (05:19)
[2017-03-09] MEDS ORDERED: ENALAPRILAT 1.25 MG/ML 1 ML VIAL IVP STA (06:18)
[2017-03-09 06:22] VITALS: BP 164/108
== END 2017-03-09 06:51 | disposition left against medical advice (07) ==
LOC: EC 01:20
DX: N39.0 Urinary tract infection, site not specified (principal); G89.29 Other chronic pain; R11.10 Vomiting, unspecified; I12.9 Hypertensive chronic kidney disease with stage 1 through stage 4 chronic kidney disease, or unspecified chronic kidney disease; N18.3 Chronic kidney disease, stage 3 (moderate); E10.22 Type 1 diabetes mellitus with diabetic chronic kidney disease; E10.43 Type 1 diabetes mellitus with diabetic autonomic (poly)neuropathy; K31.84 Gastroparesis; K21.9 Gastro-esophageal reflux disease without esophagitis; F32.9 Major depressive disorder, single episode, unspecified; Z87.891 Personal history of nicotine dependence; Z79.4 Long term (current) use of insulin; Z79.899 Other long term (current) drug therapy; Z99.2 Dependence on renal dialysis; Z90.49 Acquired absence of other specified parts of digestive tract
CPT/HCPCS: 36415; 80053; 82150; 83690; 85025; 81001; 87086; 74000; 99284; 96374; 96375 ×5; 96376 ×2; 96361; J2060; J2765; J2405; J0131

== ENCOUNTER 2017-03-14 04:38 | Emergency (ER) | payer OTHER ==
[2017-03-14 04:45] VITALS: RESP 18; TEMP 98.8
[2017-03-14] MEDS ORDERED: DICYCLOMINE 10 MG/ML 2 ML AMP IM STA (05:03)
[2017-03-14] MEDS ORDERED: ENALAPRILAT 1.25 MG/ML 1 ML VIAL IVP STA (05:04)
[2017-03-14] MEDS ORDERED: METOCLOPRAMIDE 5 MG/ML 2 ML VIAL IVP STA (05:32)
[2017-03-14 05:36] LABS: Anisocytosis Slight; Basophils % (A) 0 %; CH 27.5; CHCM 30.3; Eosinophils # (A) 0.2 k/uL (0-0.7); Eosinophils % (A) 3 %; HCT 29.2 % (39.0-53.0); HDW 2.93; HGB 8.5 gm/dL (13.0-17.5); Hypochromasia Marked; Luc # (Auto) 0.08; Luc % (Auto) 2; Lymphocytes % (A) 20 %; MCH 26.6 pg (25.0-35.0); MCV 91.7 fL (80.0-100.0); Mean Platelet Volume 8.5; Monocytes # (A) 0.3 k/uL (0-1.0); Monocytes % (A) 5 %; Neutrophils # (A) 3.7 k/uL (1.3-7.7); Neutrophils % (A) 71 %; RBC 3.19 m/uL (4.30-5.90); WBC 5.3 k/uL (3.8-10.6); WBC (Perox) 5.48
[2017-03-14 05:37] VITALS: BP 175/111; PULSE 103
[2017-03-14 05:46] LABS: ALT 39 U/L (21-72); AST 20 U/L (17-59); Alkaline Phosphatase 153 U/L (38-126); Amylase 103 U/L (30-110); Anion Gap 12 mmol/L; Blood Urea Nitrogen 41 mg/dL (9-20); Calcium 8.3 mg/dL (8.4-10.2); Carbon Dioxide 30 mmol/L (22-30); Chloride 96 mmol/L (98-107); Glucose 260 mg/dL (74-99); Potassium 3.4 mmol/L (3.5-5.1); Sodium 138 mmol/L (137-145); Total Bilirubin 1.1 mg/dL (0.2-1.3); Total Protein 6.2 g/dL (6.3-8.2)
[2017-03-14 05:57] LABS: Non-African American GFR(MDRD) 6 (>60 ml/min/1.73 sqM)
--- NOTE | 2017-04-30 22:45 | ED ---
Abdominal Pain HPI - General Chief Complaint: Abdominal Pain Stated Complaint: abd pain Time Seen by Provider: 03/14/17 04:47 Source: patient Mode of arrival: ambulatory Limitations: no limitations - History of Present Illness Initial Comments: This patient is 26-year-old man with history of diabetes, gastroparesis, and chronic abdominal pains. The patient presents today with complaint that his symptoms are acting up again. He has been having nausea and vomiting and his usual abdominal pains. Patient indicates that there throughout the entire abdomen, severe, constant, and he has not noted worsening or relieving factors. Patient has had multiple episodes of vomiting without blood or coffee-ground material. No change in bowel movements. MD Complaint: abdominal pain -: days(s) Location: diffuse Migration to: no migration Severity: severe Quality: cramping, aching Consistency: constant Improves With: nothing Worsens With: nothing Associated Symptoms: nausea, vomiting - Related Data Home Medications Medication Instructions Recorded Confirmed Insulin Glargine [Lantus] 18 unit SQ HS 06/06/15 04/29/17 buPROPion SR [Wellbutrin SR] 150 mg PO BID 06/18/15 04/29/17 INSULIN LISPRO (HumaLOG) [humaLOG] 4 units SQ AC-TID 10/16/16 04/29/17 Lisinopril [Zestril] 20 mg PO BID 10/16/16 04/29/17 Metoclopramide HCl [Reglan] 5 mg PO TID 10/16/16 04/29/17 Ranitidine HCl [Zantac] 150 mg PO HS 10/16/16 04/29/17 Potassium Chloride ER [K-Dur 20] 20 meq PO DAILY 10/20/16 04/29/17 Ergocalciferol (Vitamin D2) 50,000 unit PO MO 10/26/16 04/29/17 [Vitamin D2] amLODIPine [Norvasc] 10 mg PO DAILY 12/15/16 04/29/17 cloNIDine HCL [Catapres] 0.1 mg PO DAILY 03/24/17 04/29/17 traZODone HCL [Desyrel] 25 mg PO HS 03/24/17 04/29/17 oxyCODONE-APAP 5-325MG [Percocet 1 tab PO Q6HR PRN 10/28/17 10/30/17 5-325 mg] Previous Rx's Medication Instructions Recorded Metoprolol Tartrate [Lopressor] 100 mg PO BID #60 tab 07/16/15 Ondansetron Odt [Zofran ODT] 4 mg PO Q8HR PRN #15 tab 08/03/16 Calcium Acetate [PhosLo] 667 mg PO TID-W/MEALS #90 cap 11/21/16 Allergies Allergy/AdvReac Type Severity Reaction Status Date / Time No Known Allergies Allergy Verified 04/29/17 07:37 Review of Systems ROS Statement: Those systems with pertinent positive or pertinent negative responses have been documented in the HPI. ROS Other: All systems not noted in ROS Statement are negative. Constitutional: Denies: fever, chills Respiratory: Denies: cough, dyspnea Cardiovascular: Denies: chest pain, palpitations, edema, syncope Gastrointestinal: Reports: abdominal pain, nausea, vomiting. Denies: diarrhea, hematemesis, melena, hematochezia Musculoskeletal: Denies: back pain Skin: Denies: rash Neurological: Denies: headache, weakness, numbness Past Medical History Past Medical History: Asthma, Diabetes Mellitus, GERD/Reflux, Hypertension, Osteoarthritis (OA), Renal Disease Additional Past Medical History / Comment(s): IDDM type I, GASTROPARESIS, gastritis, esophagitis,cyclic vomiting syndrome, DKA episodes, hiatal hernia, as child had seizure r/t high fever, pancreatits(idiopathic), chronic kidney disease stage III-hemodialysis //Saturday, L leg neuropathy, migraines. dialysis History of Any Multi-Drug Resistant Organisms: MRSA Date of last positivie culture/infection: MDRO Source:: CHIN/ Rt leg Past Surgical History: Cholecystectomy, Orthopedic Surgery, Tonsillectomy Additional Past Surgical History / Comment(s): R upper chest hemodialysis catheter, PICC line, LEFT ELBOW pinned, egd's w/ bx's last done 05-30-16.6-03-17 picc line exchange. Past Anesthesia/Blood Transfusion Reactions: No Reported Reaction Past Psychological History: ADD/ADHD, Anxiety, Depression Smoking Status: Former smoker Past Alcohol Use History: None Reported Past Drug Use History: None Reported - Past Family History Mother Family Medical History: Diabetes Mellitus Additional Family Medical History / Comment(s): heart problems-(pt not sure what they were) Father Family Medical History: Diabetes Mellitus General Exam Limitations: no limitations General appearance: alert, in no apparent distress, obese Head exam: Present: atraumatic, normocephalic Eye exam: Present: normal appearance. Absent: scleral icterus, conjunctival injection ENT exam: Present: mucous membranes dry Neck exam: Present: normal inspection Respiratory exam: Present: normal lung sounds bilaterally. Absent: respiratory distress, wheezes, rales, rhonchi, stridor Cardiovascular Exam: Present: regular rate, normal rhythm, normal heart sounds. Absent: systolic murmur, diastolic murmur, rubs, gallop GI/Abdominal exam: Present: soft, hypoactive bowel sounds. Absent: distended, tenderness, guarding, rebound, rigid, mass, pulsatile mass, hernia Extremities exam: Present: normal inspection, normal capillary refill. Absent: pedal edema, calf tenderness Back exam: Present: normal inspection. Absent: CVA tenderness (R), CVA tenderness (L) Neurological exam: Present: alert Skin exam: Present: warm, dry, intact, normal color. Absent: rash Course Vital Signs 03/14/17 03/14/17 03/14/17 04:41 05:26 05:37 Temperature 98.8 F Pulse Rate 100 106 H 103 H Respiratory 18 18 18 Rate Blood Pressure 172/115 167/119 175/111 O2 Sat by Pulse 100 96 98 Oximetry Medical Decision Making - Medical Decision Making This patient is 26-year-old man with history of chronic abdominal pains, nausea and vomiting. The patient did have some relief of the vomiting with medication , though he complained to nursing staff that his pain continued. The patient's labs unremarkable today. The patient did leave before I had return for reevaluation, stating he had to make his dialysis appointment. - Lab Data Result diagrams: 03/14/17 05:19 03/14/17 05:19 Lab Results 03/14/17 03/14/17 Range/Units 05:19 05:19 WBC 5.3 (3.8-10.6) k/uL RBC 3.19 L (4.30-5.90) m/uL Hgb 8.5 L (13.0-17.5) gm/dL Hct 29.2 L (39.0-53.0) % MCV 91.7 (80.0-100.0) fL MCH 26.6 (25.0-35.0) pg MCHC 29.0 L (31.0-37.0) g/dL RDW 18.0 H (11.5-15.5) % Plt Count 242 (150-450) k/uL Neutrophils % 71 % Lymphocytes % 20 % Monocytes % 5 % Eosinophils % 3 % Basophils % 0 % Neutrophils # 3.7 (1.3-7.7) k/uL Lymphocytes # 1.0 (1.0-4.8) k/uL Monocytes # 0.3 (0-1.0) k/uL Eosinophils # 0.2 (0-0.7) k/uL Basophils # 0.0 (0-0.2) k/uL Hypochromasia Marked Anisocytosis Slight Sodium 138 (137-145) mmol/L Potassium 3.4 L (3.5-5.1) mmol/L Chloride 96 L (98-107) mmol/L Carbon Dioxide 30 (22-30) mmol/L Anion Gap 12 mmol/L BUN 41 H (9-20) mg/dL Creatinine 9.95 H* (0.66-1.25) mg/dL Est GFR (MDRD) Af Amer 8 (>60 ml/min/1.73 sqM) Est GFR (MDRD) Non-Af 6 (>60 ml/min/1.73 sqM) Glucose 260 H (74-99) mg/dL Calcium 8.3 L (8.4-10.2) mg/dL Total Bilirubin 1.1 (0.2-1.3) mg/dL AST 20 (17-59) U/L ALT 39 (21-72) U/L Alkaline Phosphatase 153 H (38-126) U/L Total Protein 6.2 L (6.3-8.2) g/dL Albumin 3.3 L (3.5-5.0) g/dL Amylase 103 (30-110) U/L Lipase 238 (23-300) U/L Acetone, Qual Negative (Negative) Disposition Clinical Impression: Chronic abdominal pain, Intractable nausea and vomiting Disposition: Left Against Medical Advice Condition: Undetermined Referrals: Myron Bailey DO [Primary Care Provider] - 1-2 days
== END 2017-03-14 05:53 | disposition left against medical advice (07) ==
LOC: EC 04:38
DX: G89.29 Other chronic pain (principal); R10.84 Generalized abdominal pain; R11.2 Nausea with vomiting, unspecified; I12.9 Hypertensive chronic kidney disease with stage 1 through stage 4 chronic kidney disease, or unspecified chronic kidney disease; N18.3 Chronic kidney disease, stage 3 (moderate); E10.22 Type 1 diabetes mellitus with diabetic chronic kidney disease; E10.43 Type 1 diabetes mellitus with diabetic autonomic (poly)neuropathy; K31.84 Gastroparesis; K21.9 Gastro-esophageal reflux disease without esophagitis; F32.9 Major depressive disorder, single episode, unspecified; F41.9 Anxiety disorder, unspecified; E66.9 Obesity, unspecified; Z87.891 Personal history of nicotine dependence; Z79.4 Long term (current) use of insulin; Z79.899 Other long term (current) drug therapy; Z90.49 Acquired absence of other specified parts of digestive tract; Z99.2 Dependence on renal dialysis; Z68.36 Body mass index [BMI] 36.0-36.9, adult
CPT/HCPCS: 99284; 96374; 96375; 96372; 36415; 80053; 82150; 82009; 83690; 85025; J0500; J2765

== ENCOUNTER 2017-04-20 21:21 | Emergency (ER) | payer OTHER ==
[2017-04-20] MEDS ORDERED: MORPHINE SULFATE 10 MG/ML SYRINGE IVP STA (22:34)
--- NOTE | 2017-04-20 22:38 | ED ---
General Adult HPI - General Chief complaint: Shortness of Breath Stated complaint: effie; chest pain; male gu Time Seen by Provider: 04/20/17 22:01 Source: patient, family, RN notes reviewed, old records reviewed Mode of arrival: wheelchair Limitations: no limitations - History of Present Illness Initial comments: 26 yo male with history of type 1 diabetes, and end-stage renal disease presents with multiple complaints including bilateral lower extremity swelling, abdominal pain, generalized fatigue, shortness of breath, and scrotal swelling. Patient receives hemodialysis Saturday. He states he completed ulcerations this week. Denies any chest pain. Denies dysuria, patient does make urine. Patient complains of nausea, no vomiting, no diarrhea. - Related Data Home Medications Medication Instructions Recorded Confirmed Insulin Glargine [Lantus] 18 unit SQ HS 06/06/15 04/20/17 buPROPion SR [Wellbutrin SR] 150 mg PO BID 06/18/15 04/20/17 INSULIN LISPRO (HumaLOG) [humaLOG] 4 units SQ AC-TID 10/16/16 04/20/17 Lisinopril [Zestril] 20 mg PO BID 10/16/16 04/20/17 Metoclopramide HCl [Reglan] 5 mg PO TID 10/16/16 04/20/17 Ranitidine HCl [Zantac] 150 mg PO HS 10/16/16 04/20/17 Potassium Chloride ER [K-Dur 20] 20 meq PO DAILY 10/20/16 04/20/17 Ergocalciferol (Vitamin D2) 50,000 unit PO MO 10/26/16 04/20/17 [Vitamin D2] amLODIPine [Norvasc] 10 mg PO DAILY 12/15/16 04/20/17 cloNIDine HCL [Catapres] 0.1 mg PO DAILY 03/24/17 04/20/17 traZODone HCL [Desyrel] 25 mg PO HS 03/24/17 04/20/17 Previous Rx's Medication Instructions Recorded Metoprolol Tartrate [Lopressor] 100 mg PO BID #60 tab 07/16/15 Ondansetron Odt [Zofran ODT] 4 mg PO Q8HR PRN #15 tab 08/03/16 Calcium Acetate [PhosLo] 667 mg PO TID-W/MEALS #90 cap 05/24/17 Allergies Allergy/AdvReac Type Severity Reaction Status Date / Time No Known Allergies Allergy Verified 04/20/17 21:53 Review of Systems ROS Statement: Those systems with pertinent positive or pertinent negative responses have been documented in the HPI. ROS Other: All systems not noted in ROS Statement are negative. Past Medical History Past Medical History: Asthma, Diabetes Mellitus, GERD/Reflux, Hypertension, Osteoarthritis (OA), Renal Disease Additional Past Medical History / Comment(s): IDDM type I, GASTROPARESIS, gastritis, esophagitis,cyclic vomiting syndrome, DKA episodes, hiatal hernia, as child had seizure r/t high fever, pancreatits(idiopathic), chronic kidney disease stage III-hemodialysis //Saturday, L leg neuropathy, migraines. dialysis History of Any Multi-Drug Resistant Organisms: MRSA Date of last positivie culture/infection: MDRO Source:: CHIN/ Rt leg Past Surgical History: Cholecystectomy, Orthopedic Surgery, Tonsillectomy Additional Past Surgical History / Comment(s): R upper chest hemodialysis catheter, PICC line, LEFT ELBOW pinned, egd's w/ bx's last done 05-30-16.12-07-16 picc line exchange. Past Anesthesia/Blood Transfusion Reactions: No Reported Reaction Past Psychological History: ADD/ADHD, Anxiety, Depression Smoking Status: Current every day smoker Past Alcohol Use History: None Reported Past Drug Use History: None Reported - Past Family History Mother Family Medical History: Diabetes Mellitus Additional Family Medical History / Comment(s): heart problems-(pt not sure what they were) Father Family Medical History: Diabetes Mellitus General Exam Limitations: no limitations General appearance: alert, in no apparent distress Head exam: Present: atraumatic, normocephalic Eye exam: Present: normal appearance ENT exam: Present: normal exam Neck exam: Present: normal inspection. Absent: tenderness, meningismus Respiratory exam: Present: normal lung sounds bilaterally. Absent: respiratory distress Cardiovascular Exam: Present: regular rate, normal rhythm GI/Abdominal exam: Present: soft, distended. Absent: tenderness exam: Present: scrotal swelling. Absent: testicular tenderness, urethral discharge Extremities exam: Present: normal inspection, normal capillary refill, pedal edema Neurological exam: Present: alert, oriented X3 Psychiatric exam: Present: normal affect, normal mood Skin exam: Present: warm, dry, intact Course Vital Signs 04/20/17 04/20/17 21:50 23:12 Temperature 99.5 F Pulse Rate 106 H 109 H Respiratory 20 18 Rate Blood Pressure 154/107 158/106 O2 Sat by Pulse 95 100 Oximetry EKG Findings - EKG Comments: EKG Findings:: EKG shows sinus tachycardia, ventricular rate 111, IN interval of 48, QRS duration 92, QTC 484, no ST segment elevation or depression Medical Decision Making - Medical Decision Making 26 yo male with type 1 diabetes and end-stage renal disease presents with multiple complaints. Chief complaint being scrotal swelling. Laboratory studies are obtained, hemoglobin 10.3 improved from previous, potassium normal at 4.2. Acetone negative, anion gap normal at 15. No signs of DKA. Chest x- ray does show mild pulmonary vascular congestion, however this is improved from previous. Patient is not dyspneic on room air. Patient scrotal swelling with secondary to fluid overload. Patient was recently taken off of his narcotic pain medication and his tramadol. Diagnosis: Scrotal swelling secondary to fluid overload, end-stage renal disease - Lab Data Result diagrams: 04/20/17 22:30 04/20/17 22:30 Lab Results 04/20/17 04/20/17 04/20/17 Range/Units 22:30 22:30 22:30 WBC 5.2 (3.8-10.6) k/uL RBC 3.78 L (4.30-5.90) m/uL Hgb 10.3 L (13.0-17.5) gm/dL Hct 36.0 L (39.0-53.0) % MCV 95.4 (80.0-100.0) fL MCH 27.2 (25.0-35.0) pg MCHC 28.6 L (31.0-37.0) g/dL RDW 19.3 H (11.5-15.5) % Plt Count 185 (150-450) k/uL Neutrophils % 70 % Lymphocytes % 19 % Monocytes % 5 % Eosinophils % 5 % Basophils % 1 % Neutrophils # 3.6 (1.3-7.7) k/uL Lymphocytes # 1.0 (1.0-4.8) k/uL Monocytes # 0.2 (0-1.0) k/uL Eosinophils # 0.3 (0-0.7) k/uL Basophils # 0.0 (0-0.2) k/uL Hypochromasia Marked Anisocytosis Slight Macrocytosis Slight PT (9.0-12.0) sec INR (<1.2) APTT (22.0-30.0) sec Sodium 133 L (137-145) mmol/L Potassium 4.0 (3.5-5.1) mmol/L Chloride 96 L (98-107) mmol/L Carbon Dioxide 22 (22-30) mmol/L Anion Gap 15 mmol/L BUN 52 H (9-20) mg/dL Creatinine 9.40 H* (0.66-1.25) mg/dL Est GFR (MDRD) Af Amer 8 (>60 ml/min/1.73 sqM) Est GFR (MDRD) Non-Af 7 (>60 ml/min/1.73 sqM) Glucose 266 H (74-99) mg/dL Calcium 8.5 (8.4-10.2) mg/dL Magnesium 2.6 H (1.6-2.3) mg/dL Total Bilirubin 1.8 H (0.2-1.3) mg/dL AST 25 (17-59) U/L ALT 34 (21-72) U/L Alkaline Phosphatase 232 H (38-126) U/L Total Creatine Kinase 112 (55-170) U/L CK-MB (CK-2) 1.5 (0.0-2.4) ng/mL CK-MB (CK-2) Rel Index 1.3 Troponin I 0.013 (0.000-0.034) ng/mL Total Protein 6.1 L (6.3-8.2) g/dL Albumin 3.1 L (3.5-5.0) g/dL Acetone, Qual Negative (Negative) 04/20/17 Range/Units 22:30 WBC (3.8-10.6) k/uL RBC (4.30-5.90) m/uL Hgb (13.0-17.5) gm/dL Hct (39.0-53.0) % MCV (80.0-100.0) fL MCH (25.0-35.0) pg MCHC (31.0-37.0) g/dL RDW (11.5-15.5) % Plt Count (150-450) k/uL Neutrophils % % Lymphocytes % % Monocytes % % Eosinophils % % Basophils % % Neutrophils # (1.3-7.7) k/uL Lymphocytes # (1.0-4.8) k/uL Monocytes # (0-1.0) k/uL Eosinophils # (0-0.7) k/uL Basophils # (0-0.2) k/uL Hypochromasia Anisocytosis Macrocytosis PT 13.7 H (9.0-12.0) sec INR 1.4 H (<1.2) APTT 46.4 H (22.0-30.0) sec Sodium (137-145) mmol/L Potassium (3.5-5.1) mmol/L Chloride (98-107) mmol/L Carbon Dioxide (22-30) mmol/L Anion Gap mmol/L BUN (9-20) mg/dL Creatinine (0.66-1.25) mg/dL Est GFR (MDRD) Af Amer (>60 ml/min/1.73 sqM) Est GFR (MDRD) Non-Af (>60 ml/min/1.73 sqM) Glucose (74-99) mg/dL Calcium (8.4-10.2) mg/dL Magnesium (1.6-2.3) mg/dL Total Bilirubin (0.2-1.3) mg/dL AST (17-59) U/L ALT (21-72) U/L Alkaline Phosphatase (38-126) U/L Total Creatine Kinase (55-170) U/L CK-MB (CK-2) (0.0-2.4) ng/mL CK-MB (CK-2) Rel Index Troponin I (0.000-0.034) ng/mL Total Protein (6.3-8.2) g/dL Albumin (3.5-5.0) g/dL Acetone, Qual (Negative) Disposition Clinical Impression: Scrotal swelling Disposition: HOME SELF-CARE Condition: Good Instructions: Scrotal Pain (ED), End Stage Kidney Disease (ED) Referrals: Myron Bailey DO [Primary Care Provider] - 1-2 days Time of Disposition: 23:45
[2017-04-20 23:00] LABS: ALT 34 U/L (21-72); AST 25 U/L (17-59); Alkaline Phosphatase 232 U/L (38-126); Anion Gap 15 mmol/L; Blood Urea Nitrogen 52 mg/dL (9-20); Calcium 8.5 mg/dL (8.4-10.2); Carbon Dioxide 22 mmol/L (22-30); Chloride 96 mmol/L (98-107); Glucose 266 mg/dL (74-99); Magnesium 2.6 mg/dL (1.6-2.3); Sodium 133 mmol/L (137-145); Total Bilirubin 1.8 mg/dL (0.2-1.3); Total Protein 6.1 g/dL (6.3-8.2)
[2017-04-20 23:02] LABS: Non-African American GFR(MDRD) 7 (>60 ml/min/1.73 sqM)
[2017-04-20 23:05] LABS: INR 1.4 (<1.2); Partial Thromboplastin Time 46.4 sec (22.0-30.0); Prothrombin Time 13.7 sec (9.0-12.0)
[2017-04-20 23:06] LABS: Anisocytosis Slight; Basophils % (A) 1 %; CH 27.1; CHCM 28.7; Eosinophils # (A) 0.3 k/uL (0-0.7); Eosinophils % (A) 5 %; HDW 2.97; HGB 10.3 gm/dL (13.0-17.5); Hypochromasia Marked; Luc # (Auto) 0.05; Luc % (Auto) 1; Lymphocytes % (A) 19 %; MCH 27.2 pg (25.0-35.0); MCHC 28.6 g/dL (31.0-37.0); MCV 95.4 fL (80.0-100.0); Macrocytosis Slight; Mean Platelet Volume 8.7; Monocytes # (A) 0.2 k/uL (0-1.0); Monocytes % (A) 5 %; Neutrophils # (A) 3.6 k/uL (1.3-7.7); Neutrophils % (A) 70 %; RBC 3.78 m/uL (4.30-5.90); RDW 19.3 % (11.5-15.5); WBC 5.2 k/uL (3.8-10.6); WBC (Perox) 4.68
--- NOTE | 2017-04-20 23:15 | XR ---
EXAMINATION TYPE: XR chest 2V DATE OF EXAM: 04/20/2017 COMPARISON: 01/17/2017 HISTORY: Difficulty breathing TECHNIQUE: Frontal and lateral views of the chest are obtained. FINDINGS: There is some blunting of costophrenic angles. There is right central venous catheter with the tip in the right atrium. There is no sign of pneumothorax. There is no gross heart failure. Ther e are no hilar masses. IMPRESSION: Small bilateral pleural effusions. No gross heart failure. There is clearing of the mild pulmonary congestion compared to last exam.
[2017-04-20 23:25] LABS: Creatine Kinase MB 1.5 ng/mL (0.0-2.4); Troponin I 0.013 ng/mL (0.000-0.034)
[2017-04-21 00:07] VITALS: BP 105/103; PULSE 103; RESP 20; TEMP 98.5
== END 2017-04-21 00:16 | disposition home or self-care (01) ==
LOC: EC 21:21
DX: N50.89 Other specified disorders of the male genital organs (principal); R10.9 Unspecified abdominal pain; M79.89 Other specified soft tissue disorders; R06.02 Shortness of breath; R53.83 Other fatigue; R11.0 Nausea; J45.909 Unspecified asthma, uncomplicated; K21.9 Gastro-esophageal reflux disease without esophagitis; N18.3 Chronic kidney disease, stage 3 (moderate); E10.22 Type 1 diabetes mellitus with diabetic chronic kidney disease; I12.9 Hypertensive chronic kidney disease with stage 1 through stage 4 chronic kidney disease, or unspecified chronic kidney disease; M19.90 Unspecified osteoarthritis, unspecified site; E10.40 Type 1 diabetes mellitus with diabetic neuropathy, unspecified; F90.9 Attention-deficit hyperactivity disorder, unspecified type; F41.9 Anxiety disorder, unspecified; F32.9 Major depressive disorder, single episode, unspecified; F17.200 Nicotine dependence, unspecified, uncomplicated; Z79.4 Long term (current) use of insulin; Z79.899 Other long term (current) drug therapy
CPT/HCPCS: 99285 ×2; 96374 ×2; 36415; 93005; 83880; 80053; 82550; 82553; 82009; 83735; 84484; 85025; 85610; 85730; 71020; J2270

== ENCOUNTER 2017-04-21 21:38 | Observation (INO) | payer OTHER ==
[2017-04-21] MEDS ORDERED: MORPHINE SULFATE 10 MG/ML SYRINGE IVP STA (22:03)
[2017-04-21 22:47] LABS: Anisocytosis Moderate; CH 28.6; CHCM 29.7; HCT 35.2 % (39.0-53.0); HDW 3.07; HGB 10.1 gm/dL (13.0-17.5); Hypochromasia Marked; MCH 27.8 pg (25.0-35.0); MCHC 28.6 g/dL (31.0-37.0); MCV 97.2 fL (80.0-100.0); Macrocytosis Slight; Mean Platelet Volume 8.2; RBC 3.62 m/uL (4.30-5.90); RDW 20.9 % (11.5-15.5); WBC 5.2 k/uL (3.8-10.6); WBC (Perox) 4.84
[2017-04-21 22:51] LABS: Calcium 8.6 mg/dL (8.4-10.2); Potassium 4.4 mmol/L (3.5-5.1); Total Bilirubin 2.1 mg/dL (0.2-1.3); Total Protein 6.3 g/dL (6.3-8.2)
[2017-04-21 22:52] LABS: Add Differential Manual Differential
[2017-04-21 22:59] LABS: INR 1.4 (<1.2); Prothrombin Time 13.6 sec (9.0-12.0)
[2017-04-21 23:06] LABS: Nucleated Red Blood Cells 0 /100 WBC (0-0); Total Cells Counted 100
[2017-04-21 23:07] LABS: Creatine Kinase MB 1.7 ng/mL (0.0-2.4); Manual Review Performed; Troponin I 0.015 ng/mL (0.000-0.034)
[2017-04-21 23:08] LABS: Polychromasia Present
--- NOTE | 2017-04-21 23:14 | XR ---
EXAM: XR Chest, 2 Views CLINICAL HISTORY: Reason: difficulty breathing TECHNIQUE: Frontal and lateral views of the chest. COMPARISON: 04/20/17. FINDINGS: Lungs: Prominent pulmonary vascularity. Pleural space: Trace bilateral pleural effusions. No pneumothorax. Heart: Stable cardiomediastinal silhouette. Mediastinum: See above. Bones/joints: Unremarkable. Tubes, lines and devices: Stable right chest port catheter. IMPRESSION: Overall no significant interval change.
--- NOTE | 2017-04-21 23:23 | ED ---
SOB HPI - General Chief Complaint: Shortness of Breath Stated Complaint: Abd Pain Time Seen by Provider: 04/21/17 21:48 Source: patient Mode of arrival: wheelchair Limitations: no limitations - History of Present Illness Initial Comments: 26 years old male with a history of renal failure, on dialysis complaining about abdominal pain he called his PCP and patient be retracted him to come to the ER, he was in the ER last night with complaints of shortness of breath or abdominal pain or scrotal swelling he said his dialysis is due tomorrow scrotal pain off and on he had it for about a month shortness of breath as well as abdominal pain or ongoing - Related Data Home Medications Medication Instructions Recorded Confirmed Insulin Glargine [Lantus] 18 unit SQ HS 06/06/15 04/21/17 buPROPion SR [Wellbutrin SR] 150 mg PO BID 06/18/15 04/21/17 INSULIN LISPRO (HumaLOG) [humaLOG] 4 units SQ AC-TID 10/16/16 04/21/17 Lisinopril [Zestril] 20 mg PO BID 10/16/16 04/21/17 Metoclopramide HCl [Reglan] 5 mg PO TID 10/16/16 04/21/17 Ranitidine HCl [Zantac] 150 mg PO HS 10/16/16 04/21/17 Potassium Chloride ER [K-Dur 20] 20 meq PO DAILY 10/20/16 04/21/17 Ergocalciferol (Vitamin D2) 50,000 unit PO MO 10/26/16 04/21/17 [Vitamin D2] amLODIPine [Norvasc] 10 mg PO DAILY 12/15/16 04/21/17 cloNIDine HCL [Catapres] 0.1 mg PO DAILY 03/24/17 04/21/17 traZODone HCL [Desyrel] 25 mg PO HS 03/24/17 04/21/17 Previous Rx's Medication Instructions Recorded Metoprolol Tartrate [Lopressor] 100 mg PO BID #60 tab 07/16/15 Ondansetron Odt [Zofran ODT] 4 mg PO Q8HR PRN #15 tab 08/03/16 Calcium Acetate [PhosLo] 667 mg PO TID-W/MEALS #90 cap 11/21/16 Allergies Allergy/AdvReac Type Severity Reaction Status Date / Time No Known Allergies Allergy Verified 04/21/17 21:53 Review of Systems ROS Statement: Those systems with pertinent positive or pertinent negative responses have been documented in the HPI. ROS Other: All systems not noted in ROS Statement are negative. Past Medical History Past Medical History: Asthma, Diabetes Mellitus, GERD/Reflux, Hypertension, Osteoarthritis (OA), Renal Disease Additional Past Medical History / Comment(s): IDDM type I, GASTROPARESIS, gastritis, esophagitis,cyclic vomiting syndrome, DKA episodes, hiatal hernia, as child had seizure r/t high fever, pancreatits(idiopathic), chronic kidney disease stage III-hemodialysis //Saturday, L leg neuropathy, migraines. dialysis History of Any Multi-Drug Resistant Organisms: MRSA Date of last positivie culture/infection: MDRO Source:: CHIN/ Rt leg Past Surgical History: Cholecystectomy, Orthopedic Surgery, Tonsillectomy Additional Past Surgical History / Comment(s): R upper chest hemodialysis catheter, PICC line, LEFT ELBOW pinned, egd's w/ bx's last done 05-30-16.12-07-16 picc line exchange. Past Anesthesia/Blood Transfusion Reactions: No Reported Reaction Past Psychological History: ADD/ADHD, Anxiety, Depression Smoking Status: Current every day smoker Past Alcohol Use History: None Reported Past Drug Use History: None Reported - Past Family History Mother Family Medical History: Diabetes Mellitus Additional Family Medical History / Comment(s): heart problems-(pt not sure what they were) Father Family Medical History: Diabetes Mellitus General Exam - General Exam Comments Initial Comments: General: The patient is awake and alert, in no distress, and does not appear acutely ill. Skin: Skin is warm and dry and no rashes or lesions are noted. Eye: Pupils are equal, round and reactive to light, extra-ocular movements are intact; there is normal conjunctiva bilaterally. Ears, nose, mouth and throat: There are moist mucous membranes and no oral lesions. Neck: The neck is supple, there is no tenderness Cardiovascular: There is a regular rate and rhythm. No murmur, rub or gallop is appreciated. Noticed him mild tachycardia Respiratory: To auscultation bilateral, no wheezing no rhonchi no distress respiratory bishop noticed Gastrointestinal: Mild diffuse tenderness all over the abdomen positive bowel sounds no guarding no rebound.scrotal exam reveals generalized swelling, circumcised male both testes are palpable is diffuse tenderness of the scrotum as well no one-sided is more swollen than the other Back: There is no tenderness to palpation in the midline. There is no obvious deformity. Musculoskeletal: Normal ROM, no tenderness, There is no pedal edema. There is no calf tenderness or swelling. No cords were appreciated. Neurological: CN II-XII intact, Cranial nerves III through XII are intact. There are no obvious motor or sensory deficits. Coordination appears grossly intact. Speech is normal. Psychiatric: Cooperative, appropriate mood & affect, normal judgment. Limitations: no limitations Course Vital Signs 04/21/17 04/21/17 21:40 22:58 Temperature 99 F Pulse Rate 110 H 108 H Respiratory 20 20 Rate Blood Pressure 146/106 159/119 O2 Sat by Pulse 96 99 Oximetry EKG is a sinus tachycardia ventricular rate is 17 [place] interval is 146 QRS duration is 88 QT/QTc is 362/483 review of this EKG does not reveal any ST elevation noticed some T-wave inversion in lead V5 and V6 I had all the imaging studies back and patient was reassessed well after midnight, scrotal ultrasound showed thickening of the skin of the scrotum testicular blood flow is intact his d-dimer is quite elevated with the complaints of consistent shortness of breath for over 48 hours of her like to put him in the hospital do the VQ scan considering he is end-stage renal patient would like to hold off the IV contrast and patient is agreeable with the CT be admitted to Dr. Clancy Service and will consult Dr. Welch has kidney doctor Medical Decision Making - Lab Data Result diagrams: 04/21/17 22:19 04/21/17 22:19 Lab Results 04/21/17 04/21/17 04/21/17 Range/Units 22:19 22:19 22:19 WBC 5.2 (3.8-10.6) k/uL RBC 3.62 L (4.30-5.90) m/uL Hgb 10.1 L (13.0-17.5) gm/dL Hct 35.2 L (39.0-53.0) % MCV 97.2 (80.0-100.0) fL MCH 27.8 (25.0-35.0) pg MCHC 28.6 L (31.0-37.0) g/dL RDW 20.9 H (11.5-15.5) % Plt Count 142 L (150-450) k/uL Neutrophils % (Manual) 70 % Lymphocytes % (Manual) 21 % Monocytes % (Manual) 4 % Eosinophils % (Manual) 5 % Neutrophils # (Manual) 3.64 (1.3-7.7) k/uL Lymphocytes # (Manual) 1.09 (1.0-4.8) k/uL Monocytes # (Manual) 0.21 (0-1.0) k/uL Eosinophils # (Manual) 0.26 (0-0.7) k/uL Nucleated RBCs 0 (0-0) /100 WBC Manual Slide Review Performed Polychromasia Present Hypochromasia Marked Poikilocytosis (manual Present Anisocytosis Moderate Anisocytosis (manual) Present Macrocytosis Slight PT (9.0-12.0) sec INR (<1.2) APTT (22.0-30.0) sec D-Dimer (<0.60) mg/L FEU Sodium 132 L (137-145) mmol/L Potassium 4.4 (3.5-5.1) mmol/L Chloride 95 L (98-107) mmol/L Carbon Dioxide 22 (22-30) mmol/L Anion Gap 15 mmol/L BUN 61 H (9-20) mg/dL Creatinine 10.60 H* (0.66-1.25) mg/dL Est GFR (MDRD) Af Amer 7 (>60 ml/min/1.73 sqM) Est GFR (MDRD) Non-Af 6 (>60 ml/min/1.73 sqM) Glucose 280 H (74-99) mg/dL Calcium 8.6 (8.4-10.2) mg/dL Total Bilirubin 2.1 H (0.2-1.3) mg/dL AST 23 (17-59) U/L ALT 36 (21-72) U/L Alkaline Phosphatase 240 H (38-126) U/L Total Creatine Kinase 106 (55-170) U/L CK-MB (CK-2) 1.7 (0.0-2.4) ng/mL CK-MB (CK-2) Rel Index 1.6 Troponin I 0.015 (0.000-0.034) ng/mL NT-Pro-B Natriuret Pep pg/mL Total Protein 6.3 (6.3-8.2) g/dL Albumin 3.2 L (3.5-5.0) g/dL 04/21/17 04/21/17 Range/Units 22:19 22:19 WBC (3.8-10.6) k/uL RBC (4.30-5.90) m/uL Hgb (13.0-17.5) gm/dL Hct (39.0-53.0) % MCV (80.0-100.0) fL MCH (25.0-35.0) pg MCHC (31.0-37.0) g/dL RDW (11.5-15.5) % Plt Count (150-450) k/uL Neutrophils % (Manual) % Lymphocytes % (Manual) % Monocytes % (Manual) % Eosinophils % (Manual) % Neutrophils # (Manual) (1.3-7.7) k/uL Lymphocytes # (Manual) (1.0-4.8) k/uL Monocytes # (Manual) (0-1.0) k/uL Eosinophils # (Manual) (0-0.7) k/uL Nucleated RBCs (0-0) /100 WBC Manual Slide Review Polychromasia Hypochromasia Poikilocytosis (manual Anisocytosis Anisocytosis (manual) Macrocytosis PT 13.6 H (9.0-12.0) sec INR 1.4 H (<1.2) APTT 26.0 (22.0-30.0) sec D-Dimer 10.64 H (<0.60) mg/L FEU Sodium (137-145) mmol/L Potassium (3.5-5.1) mmol/L Chloride (98-107) mmol/L Carbon Dioxide (22-30) mmol/L Anion Gap mmol/L BUN (9-20) mg/dL Creatinine (0.66-1.25) mg/dL Est GFR (MDRD) Af Amer (>60 ml/min/1.73 sqM) Est GFR (MDRD) Non-Af (>60 ml/min/1.73 sqM) Glucose (74-99) mg/dL Calcium (8.4-10.2) mg/dL Total Bilirubin (0.2-1.3) mg/dL AST (17-59) U/L ALT (21-72) U/L Alkaline Phosphatase (38-126) U/L Total Creatine Kinase (55-170) U/L CK-MB (CK-2) (0.0-2.4) ng/mL CK-MB (CK-2) Rel Index Troponin I (0.000-0.034) ng/mL NT-Pro-B Natriuret Pep 349620 pg/mL Total Protein (6.3-8.2) g/dL Albumin (3.5-5.0) g/dL Disposition Clinical Impression: Dyspnea, Elevated d-dimer, Scrotal pain Disposition: ADMITTED IP TO THIS [facility] Condition: Good Referrals: Myron Bailey DO [Primary Care Provider] - 1-2 days
[2017-04-21] MEDS ORDERED: MORPHINE SULFATE 10 MG/ML SYRINGE IM STA (23:49)
--- NOTE | 2017-04-21 23:54 | US ---
EXAM: US Scrotum CLINICAL HISTORY: Reason: Pain TECHNIQUE: Real-time ultrasound of the scrotum with color Doppler and image documentation. COMPARISON: Ultrasound 03/24/17. FINDINGS: Right testicle: No focal mass. Testicular flow visualized. Left testicle: No focal mass. Testicular flow visualized. Epididymides: Unable to visualize right epididymis due to scrotal swelling. Scrotum: Scrotal wall thickening/swelling measuring up to 2.6 cm in thickness at midline. EXAM MEASUREMENTS: TESTICLES: Right Testicle: 4.1 x 2.9 x 2.5 cm Left Testicle: 3.5 x 2.1 x 2.4 cm EPIDIDYMIS HEAD: Right Epididymis: See above. Left Epididymis: 0.9 cm IMPRESSION: 1. Scrotal wall thickening/swelling measuring up to 2.6 cm in thickness at midline. Correlate clinically for inflammatory/infectious process. 2. Bilateral testicular flow visualized.
--- NOTE | 2017-04-22 00:06 | XR ---
EXAM: XR Abdomen, 1 View CLINICAL HISTORY: Reason: Pain TECHNIQUE: Frontal supine view of the abdomen/pelvis. COMPARISON: 03/09/17. FINDINGS: Intraperitoneal space: No evidence of intraperitoneal free air. Gastrointestinal tract: Nonspecific bowel gas pattern. Scattered air- fluid levels. Bones/joints: Unremarkable. IMPRESSION: Nonspecific bowel gas pattern. Scattered air-fluid levels. Correlate clinically for enteritis.
[2017-04-22] MEDS ORDERED: NALOXONE 0.4 MG/ML 1 ML VIAL IV PRN (00:40)
[2017-04-22] MEDS ORDERED: HYDROmorphone 0.5 MG/0.5 ML SYRINGE IVP PRN (00:40)
[2017-04-22] MEDS ORDERED: ONDANSETRON ODT 4 MG TAB PO PRN (00:51)
[2017-04-22] MEDS ORDERED: oxyCODONE-APAP 5-325MG 1 EACH TAB PO PRN (08:33)
[2017-04-22 08:37] LABS: Glucose,Whole Blood 234 mg/dL (75-99)
[2017-04-22] MEDS ORDERED: ERGOCALCIFEROL 50,000 UNIT CAP PO SCH (09:00)
--- NOTE | 2017-04-22 09:03 | NM ---
EXAMINATION TYPE: NM pul vent and perfuse DATE OF EXAM: 04/22/2017 COMPARISON: 04/21/2017 chest radiograph HISTORY: End-stage renal disease with difficulty breathing and chest pain as well as wheezing and cou gh. TECHNIQUE: Utilizing inhalation of 71.2 mCi Tc 99m DTPA aerosol and intravenous injection of 5.3 mCi of Tc 99m MAA, ventilation and perfusion images are acquired post injection in multiple projections. FINDINGS: Normal radiotracer distribution is noted in the lungs. There is no evidence of mismatched defects. No matched defects are seen. Radiotracer clumping is appreciated on the ventilatory portion of the exam ination centrally with prominence of the hilum. IMPRESSION: 1. Very low probability for pulmonary embolus. 2. Hilar radiotracer clumping that may represent peribronchial inflammation in reactive airway diseas e or bronchitis.
[2017-04-22] MEDS: INSULIN LISPRO (humaLOG) 300 UNIT/3 ML VIAL SQ SCH ×3 (09:04→17:25)
[2017-04-22] MEDS: buPROPion SR 150 MG TABLET.ER PO SCH ×2 (09:04→23:05)
[2017-04-22] MEDS: METOPROLOL TARTRATE 50 MG TAB PO SCH ×2 (09:04→23:05)
[2017-04-22] MEDS: CALCIUM ACETATE 667 MG CAP PO SCH ×3 (09:04→17:04)
[2017-04-22] MEDS: POTASSIUM CHLORIDE ER 20 MEQ TAB.ER PO SCH (09:05)
[2017-04-22] MEDS: LISINOPRIL 20 MG TAB PO SCH ×2 (09:05→23:06)
[2017-04-22] MEDS: METOCLOPRAMIDE 5 MG TAB PO SCH ×3 (09:05→23:05)
[2017-04-22] MEDS: amLODIPine 10 MG TAB PO SCH (09:06)
[2017-04-22] MEDS: cloNIDine HCL 0.1 MG TAB PO SCH (09:06)
--- NOTE | 2017-04-22 10:27 | P.NPCON ---
History of Present Illness - Reason for Consult end stage renal disease - History of Present Illness Reason for consultation: End-stage renal disease History of present illness: Patient is a 26-year-old male seen in renal consultation for end-stage renal disease. He is maintained on hemodialysis on a Saturday schedule via permacath. Patient has been quite noncompliant with hemodialysis treatments as an outpatient. He states he did go for dialysis last week and his last treatment was on Saturday. Patient presented to the hospital with scrotal pain. He had a scrotal ultrasound done which revealed scrotal swelling with possible inflammatory or infectious process. Patient states he's not sexually active. He hasn't noticed any drainage from the scrotal site. Denies any fever. He denies any significant abdominal pain at this time. Oral intake has been good. No nausea vomiting or diarrhea. Hemodynamically stable. Does admit to pain at the scrotal site is requesting IV pain meds. Vital signs are stable. General: The patient appeared well nourished and normally developed. HEENT: Head exam is unremarkable. Neck is without jugular venous distension. LUNGS: Lungs are clear to auscultation and percussion. Breath sounds decreased. HEART: Rate and Rhythm are regular. First and second heart sounds normal. No murmurs, rubs or gallops. ABDOMEN: Abdominal exam reveals normal bowel sounds. Non-tender and non- distended. No evidence of peritonitis. EXTREMITITES: No clubbing, cyanosis, or edema. Genitalia exam: Scrotal swelling noted. No signs of erythema or obvious drainage. Past Medical History Past Medical History: Asthma, Diabetes Mellitus, GERD/Reflux, Hypertension, Osteoarthritis (OA), Renal Disease Additional Past Medical History / Comment(s): IDDM type I, GASTROPARESIS, gastritis, esophagitis,cyclic vomiting syndrome, DKA episodes, hiatal hernia, as child had seizure r/t high fever, pancreatits(idiopathic), chronic kidney disease stage III-hemodialysis //Saturday, L leg neuropathy, migraines. dialysis History of Any Multi-Drug Resistant Organisms: MRSA Date of last positivie culture/infection: MDRO Source:: CHIN/ Rt leg Past Surgical History: Cholecystectomy, Orthopedic Surgery, Tonsillectomy Additional Past Surgical History / Comment(s): R upper chest hemodialysis catheter, PICC line, LEFT ELBOW pinned, egd's w/ bx's last done 05-30-16.12-07-16 picc line exchange. Past Anesthesia/Blood Transfusion Reactions: No Reported Reaction Past Psychological History: ADD/ADHD, Anxiety, Depression Additional Psychological History / Comment(s): Pt resides with his mother. no home care services recieved. has a glucometer and a bp machine, walker and w/c if ever needed.not currently using-pt is independant. Smoking Status: Current some day smoker Past Alcohol Use History: None Reported Additional Past Alcohol Use History / Comment(s): Pt states he started smoking in 2006 and currently smokes about every other day now. Past Drug Use History: None Reported Additional Drug Use History / Comment(s): pt states smokes marijuana a couple times per month-last used 04/20/17. - Past Family History Mother Family Medical History: Diabetes Mellitus Additional Family Medical History / Comment(s): heart problems-(pt not sure what they were) Father Family Medical History: Diabetes Mellitus Medications and Allergies Home Medications Medication Instructions Recorded Confirmed Type Insulin Glargine [Lantus] 18 unit SQ HS 06/06/15 04/21/17 History buPROPion SR [Wellbutrin SR] 150 mg PO BID 06/18/15 04/21/17 History Metoprolol Tartrate [Lopressor] 100 mg PO BID #60 tab 07/16/15 04/21/17 Rx Ondansetron Odt [Zofran ODT] 4 mg PO Q8HR PRN #15 tab 08/03/16 04/21/17 Rx INSULIN LISPRO (HumaLOG) [humaLOG] 4 units SQ AC-TID 10/16/16 04/21/17 History Lisinopril [Zestril] 20 mg PO BID 10/16/16 04/21/17 History Metoclopramide HCl [Reglan] 5 mg PO TID 10/16/16 04/21/17 History Ranitidine HCl [Zantac] 150 mg PO HS 10/16/16 04/21/17 History Potassium Chloride ER [K-Dur 20] 20 meq PO DAILY 10/20/16 04/21/17 History Ergocalciferol (Vitamin D2) 50,000 unit PO MO 10/26/16 04/21/17 History [Vitamin D2] Calcium Acetate [PhosLo] 667 mg PO TID-W/MEALS #90 cap 11/21/16 04/21/17 Rx amLODIPine [Norvasc] 10 mg PO DAILY 12/15/16 04/21/17 History cloNIDine HCL [Catapres] 0.1 mg PO DAILY 03/24/17 04/21/17 History traZODone HCL [Desyrel] 25 mg PO HS 03/24/17 04/21/17 History Allergies Allergy/AdvReac Type Severity Reaction Status Date / Time No Known Allergies Allergy Verified 04/21/17 21:53 Physical Exam Vitals: Vital Signs Temp Pulse Pulse Resp BP BP Pulse Ox 04/22/17 07:00 98.7 F 108 H 17 126/92 99 04/22/17 02:00 97.0 F L 108 H 16 148/100 98 04/22/17 01:05 97.0 F L 106 H 20 151/106 100 04/22/17 00:00 103 H 04/21/17 22:58 108 H 20 159/119 99 04/21/17 21:40 99 F 110 H 20 146/106 96 Intake and Output 04/21/17 04/22/17 04/22/17 22:59 06:59 14:59 Other: # Voids 0 Weight 107.955 kg Results - Lab Results Most recent lab results Calcium 8.6 mg/dL (8.4-10.2) 04/21/17 22:19 04/21/17 22:19 04/21/17 22:19 Assessment and Plan Plan: Assessment: #1. End-stage renal disease maintained on hemodialysis on a Saturday schedule via permacath. #2. Scrotal swelling without any obvious erythema or drainage. #3. Chronic kidney disease mineral bone disease. #4. History of noncompliance with hemodialysis as an outpatient. #5. Hypertension with chronic kidney disease. Now controlled. #6. Insulin-dependent diabetes mellitus. Plan: Hemodialysis today with goal 2 liters ultrafiltration. Check phosphorus level. Maintain PhosLo with meals. Discussed with attending physician. Urology to evaluate the patient for scrotal swelling. Continue with antibiotics for now. Thank you for the consultation. I will continue to follow the patient with you during his hospital stay.
[2017-04-22 12:12] LABS: Glucose,Whole Blood 161 mg/dL (75-99)
[2017-04-22] MEDS: HYDROmorphone 0.5 MG/0.5 ML SYRINGE IVP PRN ×4 (13:21→21:36)
[2017-04-22 17:24] LABS: Glucose,Whole Blood 95 mg/dL (75-99)
[2017-04-22 20:53] LABS: Glucose,Whole Blood 75 mg/dL (75-99)
[2017-04-22] MEDS ORDERED: INSULIN GLARGINE 100 UNIT/ML 10 ML VIAL SQ SCH (21:00)
[2017-04-22] MEDS ORDERED: traZODone HCL 50 MG TAB PO SCH (21:00)
[2017-04-22] MEDS ORDERED: FAMOTIDINE 20 MG TAB PO SCH (21:00)
--- NOTE | 2017-04-22 21:42 | HP ---
HISTORY AND PHYSICAL DATE OF ADMISSION: April 22, 2017. PRESENTING COMPLAINT: Scrotal swelling. HISTORY OF PRESENTING COMPLAINT: This is a 26-year-old patient with rather extensive medical history, who has been rather noncompliant with his dialysis for quite a while. The patient normally follows with Dr. Bailey. The patient's chronic stable medical conditions include esophagitis, end-stage kidney disease on hemodialysis, depression, hypertension, autonomic dysfunction. The patient had chronic pain off and on in the epigastric area and is seen by several people including GI pain management. Always wants IV pain medication yet again, even on this admission, first he wanted was IV pain medication. The patient also complains of some pain and swelling in the left scrotum area. Denies any fever. REVIEW OF SYSTEMS: Constitutional no fever. HEENT none. Respiratory none. Cardiovascular none. Gastrointestinal none. Musculoskeletal: The patient with low back pain. Dermatological none. Hematologic: Lymphatic none. Psychiatry anxiety. Neurological none. Genitourinary no scrotal swelling and some pain. No penile discharge. PAST MEDICAL HISTORY: Diabetes mellitus type 2, GERD, hypertension, gastroparesis, esophagitis, chronic kidney disease, on hemodialysis. PAST SURGICAL HISTORY: Tonsillectomy, cholecystectomy, right upper chest hemodialysis catheter, left elbow pinning. SOCIAL HISTORY: Lives with his mother. The patient smoked from [id number]. ALLERGIES: None. HOME MEDICATIONS: Home medications: Desyrel 25 mg q.h.s., Catapres 0.1 mg p.o. daily, Wellbutrin SR 150 mg p.o. b.i.d., Norvasc 10 mg p.o. daily, Zantac 150 mg p.o. q.h.s., potassium 20 mEq p.o. daily, Zofran 4 mg q8h p.r.n. Lopressor 100 mg p.o. b.i.d., Reglan 5 mg p.o. t.i.d., Zestril 20 mg p.o. b.i.d., Lantus 18 units subcu q.h.s., Humalog 4 units subcu a.c. t.i.d., vitamin D2 50,000 units p.o. on Saturday. PhosLo 667 mg p.o. t.i.d. with meals. ALLERGIES: None. PHYSICAL EXAMINATION: Vital signs on presentation temperature 99, pulse 110, respiration 20, blood pressure 146/106, pulse ox 96% on room air. General appearance lying in bed, rather comfortable appearing. Eyes pupils equal. Conjunctivae pale. NECK: JVD not raised. Mass not palpable. HEENT external appearance of nose and ear normal. Oral cavity normal. Respiratory effort lungs are clear. Cardiovascular first and second sounds. Minimal edema. ABDOMEN: Soft nontender. Liver and spleen not palpable. Lymphatics: No lymph nodes palpable in the neck and axillae. Psychiatry alert and oriented times three. Mood and affect slightly low. Neurological pupils equal, cranial nerves grossly intact. Power and sensation grossly intact. Genitourinary: Left scrotum some slight swelling and tenderness. Scrotum is lax, not tense. INVESTIGATIONS: White count 5.2, hemoglobin 10.1, potassium 4.4, BUN 61, creatinine 10.6. Accu-Cheks are noted. The patient's EKG shows sinus tachycardia. Chest x-ray no interval change. Scrotal ultrasound shows scrotal wall thickening, swelling. ASSESSMENT: 1. Possible left scrotal wall swelling, probably from fluid overload from the patient has not been compliant with his hemodialysis. 2. End-stage kidney disease on hemodialysis. Patient has been noncompliant. 3. Gastroparesis secondary to underlying dizziness type 2. 4. Gastroesophageal reflux disease. 5. Chronic esophagitis. 6. Autonomic dysfunction from patient long-standing diabetes. 7. Obesity. 8. Chronic abdominal pain has been seen both by Gastroenterology and Pain Management at this site in the past. No indication to have Dilaudid. PLAN: Urology was consulted. Nephrology was consulted. The patient did not seem to have any obvious signs of infection and though there may be some inflammation in the scrotal area and scrotum. Care was discussed with the patient. We will also give ice pack to the scrotal area. MMODL / IJN: [id number] /
[2017-04-22 23:50] LABS: Glucose,Whole Blood 92 mg/dL (75-99)
[2017-04-23 01:30] LABS: Hepatitis B Surface Antibody Non-Reactive (Non-Reactive)
[2017-04-23] MEDS: HYDROmorphone 0.5 MG/0.5 ML SYRINGE IVP PRN ×4 (04:09→14:01)
[2017-04-23 07:21] LABS: Glucose,Whole Blood 89 mg/dL (75-99)
[2017-04-23] MEDS: METOPROLOL TARTRATE 50 MG TAB PO SCH (07:36)
[2017-04-23] MEDS: METOCLOPRAMIDE 5 MG TAB PO SCH ×2 (07:36→16:27)
[2017-04-23] MEDS: cloNIDine HCL 0.1 MG TAB PO SCH (07:36)
[2017-04-23] MEDS: amLODIPine 10 MG TAB PO SCH (07:36)
[2017-04-23] MEDS: CALCIUM ACETATE 667 MG CAP PO SCH ×2 (07:36→12:24)
[2017-04-23] MEDS: LISINOPRIL 20 MG TAB PO SCH (07:36)
[2017-04-23] MEDS: buPROPion SR 150 MG TABLET.ER PO SCH (07:36)
[2017-04-23] MEDS: POTASSIUM CHLORIDE ER 20 MEQ TAB.ER PO SCH (07:36)
[2017-04-23 07:40] VITALS: RESP 18
--- NOTE | 2017-04-23 07:50 | P.GSCN ---
History of Present Illness Consult date: 04/23/17 History of present illness: The patient is a 26-year-old gentleman on hemodialysis for approximately 6 months for end-stage renal failure due to diabetes. He has been diabetic since age 9. The patient came in the hospital because of shortness of breath and scrotal pain. According to nephrology he has been noncompliant with his hemodialysis. When asked that question he states he has been doing okay with that. He states that he has had abdominal scrotal pain for several months. He denies any injury. He has not had any problems urinating. He had a scrotal ultrasound that suggested scrotal wall thickening on the left side. He has never been evaluated for this. There is no urinalysis on the chart from this admission. His last urinalysis 6 weeks ago is clear. Review of Systems - Constitutional Reports chronic pain, Reports fatigue - Respiratory Reports dyspnea - Gastrointestinal Reports abdominal pain - Genitourinary Reports as per HPI Past Medical History Past Medical History: Asthma, Diabetes Mellitus, GERD/Reflux, Hypertension, Osteoarthritis (OA), Renal Disease Additional Past Medical History / Comment(s): IDDM type I, GASTROPARESIS, gastritis, esophagitis,cyclic vomiting syndrome, DKA episodes, hiatal hernia, as child had seizure r/t high fever, pancreatits(idiopathic), chronic kidney disease stage III-hemodialysis //Saturday, L leg neuropathy, migraines. dialysis History of Any Multi-Drug Resistant Organisms: MRSA Year Discovered:: MDRO Source:: CHIN/ Rt leg Past Surgical History: Cholecystectomy, Orthopedic Surgery, Tonsillectomy Additional Past Surgical History / Comment(s): R upper chest hemodialysis catheter, PICC line, LEFT ELBOW pinned, egd's w/ bx's last done 05-30-16.12-07-16 picc line exchange. Past Anesthesia/Blood Transfusion Reactions: No Reported Reaction Past Psychological History: ADD/ADHD, Anxiety, Depression Additional Psychological History / Comment(s): Pt resides with his mother. no home care services recieved. has a glucometer and a bp machine, walker and w/c if ever needed.not currently using-pt is independant. Smoking Status: Current some day smoker Past Alcohol Use History: None Reported Additional Past Alcohol Use History / Comment(s): Pt states he started smoking in 2006 and currently smokes about every other day now. Past Drug Use History: None Reported Additional Drug Use History / Comment(s): pt states smokes marijuana a couple times per month-last used 04/20/17. - Past Family History Mother Family Medical History: Diabetes Mellitus Additional Family Medical History / Comment(s): heart problems-(pt not sure what they were) Father Family Medical History: Diabetes Mellitus Medications and Allergies Home Medications Medication Instructions Recorded Confirmed Type Insulin Glargine [Lantus] 18 unit SQ HS 06/06/15 04/21/17 History buPROPion SR [Wellbutrin SR] 150 mg PO BID 06/18/15 04/21/17 History Metoprolol Tartrate [Lopressor] 100 mg PO BID #60 tab 07/16/15 04/21/17 Rx Ondansetron Odt [Zofran ODT] 4 mg PO Q8HR PRN #15 tab 08/03/16 04/21/17 Rx INSULIN LISPRO (HumaLOG) [humaLOG] 4 units SQ AC-TID 10/16/16 04/21/17 History Lisinopril [Zestril] 20 mg PO BID 10/16/16 04/21/17 History Metoclopramide HCl [Reglan] 5 mg PO TID 10/16/16 04/21/17 History Ranitidine HCl [Zantac] 150 mg PO HS 10/16/16 04/21/17 History Potassium Chloride ER [K-Dur 20] 20 meq PO DAILY 10/20/16 04/21/17 History Ergocalciferol (Vitamin D2) 50,000 unit PO MO 10/26/16 04/21/17 History [Vitamin D2] Calcium Acetate [PhosLo] 667 mg PO TID-W/MEALS #90 cap 11/21/16 04/21/17 Rx amLODIPine [Norvasc] 10 mg PO DAILY 12/15/16 04/21/17 History cloNIDine HCL [Catapres] 0.1 mg PO DAILY 03/24/17 04/21/17 History traZODone HCL [Desyrel] 25 mg PO HS 03/24/17 04/21/17 History Allergies Allergy/AdvReac Type Severity Reaction Status Date / Time No Known Allergies Allergy Verified 04/21/17 21:53 Surgical - Exam Vital Signs Temp Pulse Resp BP Pulse Ox 99 F 110 H 20 146/106 96 04/21/17 21:40 04/21/17 21:40 04/21/17 21:40 04/21/17 21:40 04/21/17 21:40 - General well developed, well nourished, obese - Eyes PERRL - ENT no hearing loss - Neck trachea midline - Respiratory normal expansion, normal respiratory effort - Cardiovascular Rhythm: regular - Abdomen Abdomen: soft, non tender - Genitourinary The patient scrotum was unremarkable. The testes and epididymis are unremarkable. There are no epididymal or scrotal masses. There is no hydrocele no varicocele. There are no hernias. normal penis with no external lesions, testicles present, testicles non-tender - Integumentary no rash, no growths - Neurologic normal sensation - Musculoskeletal normal posture - Psychiatric oriented to time, oriented to person, oriented to place, speech is normal, memory intact Results - Labs 04/21/17 22:19 04/21/17 22:19 Abnormal Lab Results - Last 24 Hours (Table) 04/22/17 04/22/17 Range/Units 08:34 12:07 POC Glucose (mg/dL) 234 H 161 H (75-99) mg/dL Assessment and Plan Assessment: Impression: End-stage renal failure secondary diabetes.. Noncompliance with hemodialysis. Chronic scrotal pain Recommendations. The patient has no physical abnormalities of the scrotum and intrascrotal contents identified on examination. I discussed this with the patient and explained to him all the normal findings. If he develops swelling and probably is due to generalized edema associated with his renal failure. At this point in time there is no scrotal swelling. Treatment is strictly symptomatic such as scrotal support Tylenol or Motrin. This is been discussed with the patient and he feels better about this.
[2017-04-23] MEDS: INSULIN LISPRO (humaLOG) 300 UNIT/3 ML VIAL SQ SCH ×2 (08:20→12:24)
--- NOTE | 2017-04-23 10:48 | P.PN ---
Subjective Patient is seen in follow-up for end-stage renal disease. He is maintained on hemodialysis on a Saturday schedule via permacath. Patient presented with abdominal pain and scrotum swelling. He has been seen by urology and no surgical interventions are planned at this time. He is currently tolerating oral intake. He is hemodynamically stable. No vomiting or diarrhea. He is eager to go home. Vital signs are stable. General: The patient appeared well nourished and normally developed. HEENT: Head exam is unremarkable. Neck is without jugular venous distension. LUNGS: Lungs are clear to auscultation and percussion. Breath sounds decreased. HEART: Rate and Rhythm are regular. First and second heart sounds normal. No murmurs, rubs or gallops. ABDOMEN: Abdominal exam reveals normal bowel sounds. Non-tender and non- distended. No evidence of peritonitis. EXTREMITITES: No clubbing, cyanosis, or edema. Objective - Vital Signs Vital signs: Vital Signs Temp 98.7 F 04/23/17 07:00 Pulse 77 04/23/17 07:00 Resp 18 04/23/17 07:00 BP 112/74 04/23/17 07:00 Pulse Ox 100 04/23/17 07:00 Intake & Output 04/22/17 04/23/17 04/23/17 18:59 06:59 18:59 Intake Total 400 Balance 400 Intake: Oral 400 Other: # Voids 0 0 # Bowel Movements 0 - Labs CBC & Chem 7: 04/21/17 22:19 04/21/17 22:19 Labs: Abnormal Lab Results - Last 24 Hours (Table) 04/22/17 Range/Units 12:07 POC Glucose (mg/dL) 161 H (75-99) mg/dL Assessment and Plan Plan: Assessment: #1. End-stage renal disease maintained on hemodialysis on a Saturday schedule via permacath. #2. Scrotal swelling without any obvious erythema or drainage. Seen by urology. No interventions planned. #3. Chronic kidney disease mineral bone disease. #4. History of noncompliance with hemodialysis as an outpatient. #5. Hypertension with chronic kidney disease. Now controlled. #6. Insulin-dependent diabetes mellitus. Plan: Hemodialysis tomorrow with goal 2 liters ultrafiltration. Maintain PhosLo with meals. Encourage oral intake. Stressed the importance of being compliant with medications and dialysis as an outpatient. Potential discharge today.
[2017-04-23 12:44] LABS: Glucose,Whole Blood 102 mg/dL (75-99)
[2017-04-23 14:49] VITALS: BP 105/69; PULSE 79; TEMP 97.8
--- NOTE | 2017-04-23 21:32 | P.DS ---
Providers Date of admission: 04/22/17 00:40 Expected date of discharge: 04/23/17 Attending physician: Kyle Clancy Consults: 04/22/17 00:40 Consult Physician Stat Consulting Provider: Ashok Ho Consult Reason/Comments: End-stage renal disease Do you want consulting provider notified?: Yes 04/22/17 17:32 Consult Physician Routine Consulting Provider: Samuel Castelan Consult Reason/Comments: permacath exchange. Do you want consulting provider notified?: Yes 04/22/17 17:36 Consult Physician Routine Consulting Provider: Oswaldo Hopson Consult Reason/Comments: scrotum wall thickening and swelling. Do you want consulting provider notified?: Yes Primary care physician: [facility] Course: FINAL DIAGNOSES: -Left scrotal wall swelling probably from fluid overload from the patient has not been compliant with hemodialysis. -End-stage kidney disease on hemodialysis. Patient has been noncompliant. -Gastroparesis secondary to underlying diabetes mellitus2 -Gastroesophageal reflux disease. -Chronic esophagitis. -Autonomic dysfunction of patient long-standing diabetes. -Obesity. -Chronic abdominal pain that has been seen both by gastroenterology and pain management at this site in the past. No indication to have Dilaudid. HOSPTIAL COURSE: 26-year-old male with extensive medical history and history of noncompliance with his dialysis presented to the emergency department with chronic pain in the epigastric area as well as some pain and swelling in the left scrotal area. Admitted for the same. IV fluids initiated, Home medications reordered, nephrology, urology consulted. Nephrology arrange for patient to receive his dialysis treatments while here. Urology evaluated the patient and found no abnormalities educated patient on what normal findings represent. Should patient redeveloped any swelling is more than likely associated to his renal failure. Treatment is strict asymptomatic scrotal support Tylenol or Motrin. Patient had no episodes of nausea or vomiting, no further epigastric pain no difficulty swallowing, tolerating his diet, no nausea or vomiting associated with toleration of meals. Ambulatory within the room and celestin ways. Patient's overall condition stable and appropriate for discharge home. PHYSICAL EXAM: CARDIOVASCULAR: First and second sounds noted no edema RESPIRATORY: Respiratory effort normal lung sounds diminished bilaterally GI: Abdomen soft nontender to palpation liver and spleen not palpable. : No further scrotal swelling PSYCHIATRY: Alert and oriented 3 mood and affect appropriate for situation. Patient was seen and examined by nurse practitioner Kristen Martínez in all elements of the case discussed with attending Dr. Clancy DISPOSITION: Discharge home Patient Condition at Discharge: Stable Plan - Discharge Summary Discharge Rx Participant: Yes New Discharge Prescriptions: New oxyCODONE-APAP 5-325MG [Percocet 5-325 mg] 1 each PO Q6HR PRN #20 tab PRN Reason: Pain Continue Insulin Glargine [Lantus] 18 unit SQ HS buPROPion SR [Wellbutrin SR] 150 mg PO BID Metoprolol Tartrate [Lopressor] 100 mg PO BID #60 tab Ondansetron Odt [Zofran ODT] 4 mg PO Q8HR PRN #15 tab PRN Reason: Nausea INSULIN LISPRO (HumaLOG) [humaLOG] 4 units SQ AC-TID Lisinopril [Zestril] 20 mg PO BID Metoclopramide HCl [Reglan] 5 mg PO TID Ranitidine HCl [Zantac] 150 mg PO HS Potassium Chloride ER [K-Dur 20] 20 meq PO DAILY Ergocalciferol (Vitamin D2) [Vitamin D2] 50,000 unit PO MO Calcium Acetate [PhosLo] 667 mg PO TID-W/MEALS #90 cap amLODIPine [Norvasc] 10 mg PO DAILY cloNIDine HCL [Catapres] 0.1 mg PO DAILY traZODone HCL [Desyrel] 25 mg PO HS Discharge Medication List Insulin Glargine [Lantus] 18 unit SQ HS 06/06/15 [History] buPROPion SR [Wellbutrin SR] 150 mg PO BID 06/18/15 [History] Metoprolol Tartrate [Lopressor] 100 mg PO BID #60 tab 07/16/15 [Rx] Ondansetron Odt [Zofran ODT] 4 mg PO Q8HR PRN #15 tab 08/03/16 [Rx] INSULIN LISPRO (HumaLOG) [humaLOG] 4 units SQ AC-TID 10/16/16 [History] Lisinopril [Zestril] 20 mg PO BID 10/16/16 [History] Metoclopramide HCl [Reglan] 5 mg PO TID 10/16/16 [History] Ranitidine HCl [Zantac] 150 mg PO HS 10/16/16 [History] Potassium Chloride ER [K-Dur 20] 20 meq PO DAILY 10/20/16 [History] Ergocalciferol (Vitamin D2) [Vitamin D2] 50,000 unit PO MO 10/26/16 [History] Calcium Acetate [PhosLo] 667 mg PO TID-W/MEALS #90 cap 11/21/16 [Rx] amLODIPine [Norvasc] 10 mg PO DAILY 12/15/16 [History] cloNIDine HCL [Catapres] 0.1 mg PO DAILY 03/24/17 [History] traZODone HCL [Desyrel] 25 mg PO HS 03/24/17 [History] oxyCODONE-APAP 5-325MG [Percocet 5-325 mg] 1 each PO Q6HR PRN #20 tab 04/23/17 [ Rx] Follow up Appointment(s)/Referral(s): Myron Bailey DO [Primary Care Provider] - 05/02/17 1:15 pm Ashok Ho DO [STAFF PHYSICIAN] - 1 Week (At dialysis center Mon-Wed-Fri.) Patient Instructions/Handouts: End Stage Kidney Disease (DC) Activity/Diet/Wound Care/Special Instructions: Warm compress to left scrotum and ice packs as needed for comfort. Phoslo with diet- Renal, diabetic. Activity as tolerated. Keep Diaylsis appointments. NO smoking, cessation information provided. PICC line care as before. Discharge Disposition: HOME SELF-CARE
--- NOTE | 2017-04-24 07:50 | DS ---
DISCHARGE SUMMARY DATE OF SERVICE: April 23, 2017. ATTENDING NOTE: This patient is seen and examined by me. I discussed with my nurse practitioner, Ms. Martínez. Patient admitted with left scrotal wall swelling, felt to be fluid overload from incomplete dialysis. The patient's hemodialyzed. Seen by Urology. Pain was much better. Patient was wanting IV Dilaudid. This was not given. Patient is eating well, up and about. The patient is still re-emphasized to maintain his dialysis schedule and be discharged. EXAMINATION: Lungs decreased breath sounds. ABDOMEN: Soft, nontender. Psych AO x3. Comfortable at rest. MMODL / IJN: [id number] /
== END 2017-04-23 17:19 | disposition home or self-care (01) ==
LOC: EC 21:38 → 4MS4W 04-22 00:40 → INTOOBSV 04-22 00:40
PROVIDERS: ADMIT Hospitalist; ATTEND Hospitalist
DX: E87.70 Fluid overload, unspecified (principal); N50.89 Other specified disorders of the male genital organs; I12.0 Hypertensive chronic kidney disease with stage 5 chronic kidney disease or end stage renal disease; N50.82 Scrotal pain; Z91.15 Patient's noncompliance with renal dialysis; Z99.2 Dependence on renal dialysis; G89.29 Other chronic pain; N18.6 End stage renal disease; E11.43 Type 2 diabetes mellitus with diabetic autonomic (poly)neuropathy; K31.84 Gastroparesis; K21.0 Gastro-esophageal reflux disease with esophagitis; E11.22 Type 2 diabetes mellitus with diabetic chronic kidney disease; E66.9 Obesity, unspecified; Z68.37 Body mass index [BMI] 37.0-37.9, adult; Z79.899 Other long term (current) drug therapy; Z79.4 Long term (current) use of insulin; F17.200 Nicotine dependence, unspecified, uncomplicated; F12.90 Cannabis use, unspecified, uncomplicated; J45.909 Unspecified asthma, uncomplicated; M19.90 Unspecified osteoarthritis, unspecified site; Z86.14 Personal history of Methicillin resistant Staphylococcus aureus infection; F90.9 Attention-deficit hyperactivity disorder, unspecified type; F41.9 Anxiety disorder, unspecified; F32.9 Major depressive disorder, single episode, unspecified; R79.1 Abnormal coagulation profile; G43.909 Migraine, unspecified, not intractable, without status migrainosus; R79.89 Other specified abnormal findings of blood chemistry
CPT/HCPCS: 99285; 96375 ×3; 96376 ×4; 96365; 96366 ×2; 36415; 93005; 85379; 86705; 83880; 80053; 82550; 82553; 84484; 85025; 85610; 85730; 86706; 87340; 71020; 74000; 93975; 76870; 78582; G0378 ×2; A9540; A9567; J2270; S0106 ×2; J0696 ×2; J1170 ×2; 90935

== ENCOUNTER 2017-05-09 10:57 | Emergency (ER) | payer OTHER ==
[2017-05-09] MEDS ORDERED: ONDANSETRON 4 MG/2 ML VIAL IVP STA ×2 (11:23→12:41)
[2017-05-09] MEDS ORDERED: hydrALAZINE HCL 20 MG/ML 1 ML VIAL IVP STA (11:24)
[2017-05-09 11:28] VITALS: TEMP 98.3
[2017-05-09 11:55] LABS: Anisocytosis Moderate; Basophils % (A) 1 %; CH 26.7; CHCM 28.7; Eosinophils # (A) 0.1 k/uL (0-0.7); Eosinophils % (A) 2 %; HCT 38.9 % (39.0-53.0); HDW 3.01; HGB 11.1 gm/dL (13.0-17.5); Hypochromasia Marked; Luc # (Auto) 0.09; Luc % (Auto) 1; Lymphocytes # (A) 0.9 k/uL (1.0-4.8); Lymphocytes % (A) 15 %; MCH 26.9 pg (25.0-35.0); MCHC 28.6 g/dL (31.0-37.0); Macrocytosis Slight; Mean Platelet Volume 9.1; Monocytes # (A) 0.3 k/uL (0-1.0); Monocytes % (A) 5 %; Neutrophils # (A) 4.5 k/uL (1.3-7.7); Neutrophils % (A) 77 %; RBC 4.13 m/uL (4.30-5.90); RDW 21.7 % (11.5-15.5); WBC 5.9 k/uL (3.8-10.6); WBC (Perox) 6.33
[2017-05-09 12:15] LABS: ALT 36 U/L (21-72); AST 31 U/L (17-59); Alkaline Phosphatase 260 U/L (38-126); Amylase 46 U/L (30-110); Anion Gap 18 mmol/L; Blood Urea Nitrogen 51 mg/dL (9-20); Carbon Dioxide 25 mmol/L (22-30); Chloride 96 mmol/L (98-107); Glucose 168 mg/dL (74-99); Potassium 5.2 mmol/L (3.5-5.1); Sodium 139 mmol/L (137-145); Total Bilirubin 1.6 mg/dL (0.2-1.3); Total Protein 6.8 g/dL (6.3-8.2)
[2017-05-09 12:28] LABS: Non-African American GFR(MDRD) 6 (>60 ml/min/1.73 sqM)
--- NOTE | 2017-05-09 12:29 | XR ---
EXAMINATION TYPE: XR KUB DATE OF EXAM: 05/09/2017 12:21 PM CLINICAL HISTORY: Abdominal pain with nausea and vomiting. TECHNIQUE: Two Upright KUB images of the abdomen are obtained. COMPARISON: Abdominal x-ray from April 21, 2017 FINDINGS: There is some paucity of bowel gas. Visualized gas is seen in nondistended small and large bowel loops throughout the abdomen and pelvis. There is partial visualization of venous catheter or d ialysis catheter tips in right atrium and at cavoatrial junction similar to prior. No pneumoperitoneu m or suspicious calcification is seen. Visualized osseous structures are intact. IMPRESSION: Overall nonspecific but strongly suspected nonobstructive bowel gas pattern. No significant change fr om prior.
--- NOTE | 2017-05-09 12:35 | ED ---
General Adult HPI - General Chief complaint: Abdominal Pain Stated complaint: abdominal pain Time Seen by Provider: 05/09/17 11:10 Source: patient, RN notes reviewed Mode of arrival: wheelchair Limitations: no limitations - History of Present Illness Initial comments: This is a 26-year-old male who comes in today stating he has been vomiting all morning and he wants something for pain. Patient states his abdomen is tender. Patient states he was dialyzed yesterday. Patient denies any fever or chills. Patient states this is a same pain as he always has when he comes in. Patient denies chest pain difficulty breathing or shortness of breath per patient denies any recent injury or trauma. Patient denies any diarrhea. - Related Data Home Medications Medication Instructions Recorded Confirmed Insulin Glargine [Lantus] 18 unit SQ HS 06/06/15 05/09/17 buPROPion SR [Wellbutrin SR] 150 mg PO BID 06/18/15 05/09/17 INSULIN LISPRO (HumaLOG) [humaLOG] 4 units SQ AC-TID 10/16/16 05/09/17 Lisinopril [Zestril] 20 mg PO BID 10/16/16 05/09/17 Metoclopramide HCl [Reglan] 5 mg PO TID 10/16/16 05/09/17 Ranitidine HCl [Zantac] 150 mg PO HS 10/16/16 05/09/17 Potassium Chloride ER [K-Dur 20] 20 meq PO DAILY 10/20/16 05/09/17 Ergocalciferol (Vitamin D2) 50,000 unit PO MO 10/26/16 05/09/17 [Vitamin D2] amLODIPine [Norvasc] 10 mg PO DAILY 12/15/16 05/09/17 cloNIDine HCL [Catapres] 0.1 mg PO DAILY 03/24/17 05/09/17 traZODone HCL [Desyrel] 25 mg PO HS 03/24/17 05/09/17 oxyCODONE-APAP 5-325MG [Percocet 1 tab PO Q6HR PRN 04/27/17 05/09/17 5-325 mg] Previous Rx's Medication Instructions Recorded Metoprolol Tartrate [Lopressor] 100 mg PO BID #60 tab 07/16/15 Ondansetron Odt [Zofran ODT] 4 mg PO Q8HR PRN #15 tab 08/03/16 Calcium Acetate [PhosLo] 667 mg PO TID-W/MEALS #90 cap 11/21/16 Ondansetron [Zofran] 4 mg PO Q8HR PRN #10 05/09/17 Allergies Allergy/AdvReac Type Severity Reaction Status Date / Time No Known Allergies Allergy Verified 05/09/17 11:18 Review of Systems ROS Statement: Those systems with pertinent positive or pertinent negative responses have been documented in the HPI. ROS Other: All systems not noted in ROS Statement are negative. Past Medical History Past Medical History: Asthma, Diabetes Mellitus, GERD/Reflux, Hypertension, Osteoarthritis (OA), Renal Disease Additional Past Medical History / Comment(s): IDDM type I, GASTROPARESIS, gastritis, esophagitis,cyclic vomiting syndrome, DKA episodes, hiatal hernia, as child had seizure r/t high fever, pancreatits(idiopathic), chronic kidney disease stage III-hemodialysis //Saturday, L leg neuropathy, migraines. dialysis History of Any Multi-Drug Resistant Organisms: MRSA Date of last positivie culture/infection: MDRO Source:: CHIN/ Rt leg Past Surgical History: Cholecystectomy, Orthopedic Surgery, Tonsillectomy Additional Past Surgical History / Comment(s): R upper chest hemodialysis catheter, PICC line, LEFT ELBOW pinned, egd's w/ bx's last done 05-30-16.12-07-16 picc line exchange. Past Anesthesia/Blood Transfusion Reactions: No Reported Reaction Past Psychological History: ADD/ADHD, Anxiety, Depression Smoking Status: Current some day smoker Past Alcohol Use History: None Reported Past Drug Use History: None Reported - Past Family History Mother Family Medical History: Diabetes Mellitus Additional Family Medical History / Comment(s): heart problems-(pt not sure what they were) Father Family Medical History: Diabetes Mellitus General Exam - General Exam Comments Initial Comments: GENERAL: Patient is well-developed and well-nourished. Patient is nontoxic and well- hydrated and is in mild distress. ENT: Neck is soft and supple. No significant lymphadenopathy is noted. Oropharynx is clear. Moist mucous membranes. Neck has full range of motion without eliciting any pain. EYES: The sclera were anicteric and conjunctiva were pink and moist. Extraocular movements were intact and pupils were equal round and reactive to light. Eyelids were unremarkable. PULMONARY: Unlabored respirations. Good breath sounds bilaterally. No audible rales rhonchi or wheezing was noted. CARDIOVASCULAR: There is a regular rate and rhythm without any murmurs gallops or rubs. ABDOMEN: Patient has no tenderness when he is distracted but when he is not distracted he claims his belly hurts everywhere no matter where I touch him. SKIN: Skin is clear with no lesions or rashes and otherwise unremarkable. NEUROLOGIC: Patient is alert and oriented x3. Cranial nerves II through XII are grossly intact. Motor and sensory are also intact. Normal speech, volume and content. Symmetrical smile. MUSCULOSKELETAL: Normal extremities with adequate strength and full range of motion. 2+ edema LYMPHATICS: No significant lymphadenopathy is noted PSYCHIATRIC: Normal psychiatric evaluation. Limitations: no limitations Course Vital Signs 05/09/17 05/09/17 05/09/17 11:07 11:24 11:43 Temperature 97.5 F L 98.3 F Pulse Rate 99 88 62 Respiratory 24 22 22 Rate Blood Pressure 179/130 156/116 O2 Sat by Pulse 97 98 99 Oximetry 05/09/17 12:15 Temperature Pulse Rate 59 L Respiratory 22 Rate Blood Pressure 165/95 O2 Sat by Pulse 99 Oximetry Medical Decision Making - Lab Data Result diagrams: 05/09/17 11:45 05/09/17 11:45 Lab Results 05/09/17 05/09/17 Range/Units 11:45 11:45 WBC 5.9 (3.8-10.6) k/uL RBC 4.13 L (4.30-5.90) m/uL Hgb 11.1 L (13.0-17.5) gm/dL Hct 38.9 L (39.0-53.0) % MCV 94.0 (80.0-100.0) fL MCH 26.9 (25.0-35.0) pg MCHC 28.6 L (31.0-37.0) g/dL RDW 21.7 H (11.5-15.5) % Plt Count 258 (150-450) k/uL Neutrophils % 77 % Lymphocytes % 15 % Monocytes % 5 % Eosinophils % 2 % Basophils % 1 % Neutrophils # 4.5 (1.3-7.7) k/uL Lymphocytes # 0.9 L (1.0-4.8) k/uL Monocytes # 0.3 (0-1.0) k/uL Eosinophils # 0.1 (0-0.7) k/uL Basophils # 0.0 (0-0.2) k/uL Hypochromasia Marked Anisocytosis Moderate Macrocytosis Slight Sodium 139 (137-145) mmol/L Potassium 5.2 H (3.5-5.1) mmol/L Chloride 96 L (98-107) mmol/L Carbon Dioxide 25 (22-30) mmol/L Anion Gap 18 mmol/L BUN 51 H (9-20) mg/dL Creatinine 10.08 H* (0.66-1.25) mg/dL Est GFR (MDRD) Af Amer 8 (>60 ml/min/1.73 sqM) Est GFR (MDRD) Non-Af 6 (>60 ml/min/1.73 sqM) Glucose 168 H (74-99) mg/dL Calcium 9.0 (8.4-10.2) mg/dL Total Bilirubin 1.6 H (0.2-1.3) mg/dL AST 31 (17-59) U/L ALT 36 (21-72) U/L Alkaline Phosphatase 260 H (38-126) U/L Total Protein 6.8 (6.3-8.2) g/dL Albumin 3.5 (3.5-5.0) g/dL Amylase 46 (30-110) U/L Lipase 65 (23-300) U/L Acetone, Qual Negative (Negative) Disposition Clinical Impression: Acute vomiting, Hypertension Disposition: HOME SELF-CARE Condition: Good Instructions: Acute Nausea and Vomiting (ED) Prescriptions: Ondansetron [Zofran] 4 mg PO Q8HR PRN #10 PRN Reason: Nausea And Vomiting Referrals: Myron Bailey DO [Primary Care Provider] - 1-2 days Time of Disposition: 12:36
[2017-05-09 12:51] VITALS: BP 160/105; PULSE 98; RESP 20
== END 2017-05-09 12:51 | disposition home or self-care (01) ==
LOC: EC 10:57
DX: R11.10 Vomiting, unspecified (principal); J45.909 Unspecified asthma, uncomplicated; K21.9 Gastro-esophageal reflux disease without esophagitis; M19.90 Unspecified osteoarthritis, unspecified site; E10.22 Type 1 diabetes mellitus with diabetic chronic kidney disease; I12.9 Hypertensive chronic kidney disease with stage 1 through stage 4 chronic kidney disease, or unspecified chronic kidney disease; N18.3 Chronic kidney disease, stage 3 (moderate); F32.9 Major depressive disorder, single episode, unspecified; F41.9 Anxiety disorder, unspecified; F90.9 Attention-deficit hyperactivity disorder, unspecified type; F17.200 Nicotine dependence, unspecified, uncomplicated; Z86.14 Personal history of Methicillin resistant Staphylococcus aureus infection; Z79.4 Long term (current) use of insulin; Z79.899 Other long term (current) drug therapy; Z90.49 Acquired absence of other specified parts of digestive tract
CPT/HCPCS: 36415; 80053; 82150; 82009; 83690; 85025; 74000; 99284; 96374; 96375; 96376; J0360; J2405

== ENCOUNTER 2017-07-10 21:54 | Inpatient (IN) | payer OTHER ==
[2017-07-10] MEDS ORDERED: HYDROmorphone 1 MG/ML 1 ML SYRINGE IVP STA (22:26)
[2017-07-10] MEDS ORDERED: ONDANSETRON 4 MG/2 ML VIAL IVP STA (22:26)
[2017-07-10] MEDS ORDERED: SODIUM CHLORIDE 0.9% 1,000 ML IV STA (22:26)
--- NOTE | 2017-07-10 22:30 | ED ---
Abdominal Pain HPI - General Chief Complaint: Abdominal Pain Stated Complaint: abdominal pain/nausea/vomiting Time Seen by Provider: 07/10/17 22:19 Source: patient, family, RN notes reviewed, old records reviewed Mode of arrival: wheelchair Limitations: no limitations - History of Present Illness Initial Comments: This is a 26-year-old male with severe abdominal pain this started around 3:20 today. He states was at dialysis was started but didn't hurt that bad and later on started hurting. He has multiple episodes nausea vomiting over 10 episodes. He did have some blood with last episode. She is a pain sharp dull achy severe in nature. No reports of diarrhea. No fevers chills or sweats. It is similar to previous episodes of abdominal pain. He is not sure what his blood sugars today. MD Complaint: abdominal pain - Related Data Home Medications Medication Instructions Recorded Confirmed Insulin Glargine [Lantus] 18 unit SQ HS 06/06/15 05/09/17 buPROPion SR [Wellbutrin SR] 150 mg PO BID 06/18/15 05/09/17 INSULIN LISPRO (HumaLOG) [humaLOG] 4 units SQ AC-TID 10/16/16 07/10/17 Lisinopril [Zestril] 20 mg PO BID 10/16/16 05/09/17 Metoclopramide HCl [Reglan] 5 mg PO TID 10/16/16 05/09/17 Ranitidine HCl [Zantac] 150 mg PO HS 10/16/16 05/09/17 Potassium Chloride ER [K-Dur 20] 20 meq PO DAILY 10/20/16 07/10/17 Ergocalciferol (Vitamin D2) 50,000 unit PO Q7D 10/26/16 07/10/17 [Vitamin D2] amLODIPine [Norvasc] 10 mg PO DAILY 12/15/16 05/09/17 cloNIDine HCL [Catapres] 0.1 mg PO DAILY 03/24/17 05/09/17 traZODone HCL [Desyrel] 25 mg PO HS 03/24/17 05/09/17 Furosemide [Lasix] 60 mg PO DAILY 07/10/17 07/10/17 HYDROcodone/APAP 5-325MG [[place] 1 tab PO TID PRN 07/10/17 07/10/17 5-325] Previous Rx's Medication Instructions Recorded Metoprolol Tartrate [Lopressor] 100 mg PO BID #60 tab 07/16/15 Calcium Acetate [PhosLo] 667 mg PO TID-W/MEALS #90 cap 11/21/16 Ondansetron [Zofran] 4 mg PO Q8HR PRN #10 05/09/17 Allergies Allergy/AdvReac Type Severity Reaction Status Date / Time No Known Allergies Allergy Verified 05/09/17 11:18 Review of Systems ROS Statement: Those systems with pertinent positive or pertinent negative responses have been documented in the HPI. ROS Other: All systems not noted in ROS Statement are negative. Past Medical History Past Medical History: Asthma, Diabetes Mellitus, GERD/Reflux, Hypertension, Osteoarthritis (OA), Renal Disease Additional Past Medical History / Comment(s): IDDM type I, GASTROPARESIS, gastritis, esophagitis,cyclic vomiting syndrome, DKA episodes, hiatal hernia, as child had seizure r/t high fever, pancreatits(idiopathic), chronic kidney disease stage III-hemodialysis //Saturday, L leg neuropathy, migraines. dialysis History of Any Multi-Drug Resistant Organisms: MRSA Date of last positivie culture/infection: MDRO Source:: CHIN/ Rt leg Past Surgical History: Cholecystectomy, Orthopedic Surgery, Tonsillectomy Additional Past Surgical History / Comment(s): R upper chest hemodialysis catheter, PICC line, LEFT ELBOW pinned, egd's w/ bx's last done 05-30-16.12-07-16 picc line exchange. Past Anesthesia/Blood Transfusion Reactions: No Reported Reaction Past Psychological History: ADD/ADHD, Anxiety, Depression Smoking Status: Current some day smoker Past Alcohol Use History: None Reported Past Drug Use History: None Reported - Past Family History Mother Family Medical History: Diabetes Mellitus Additional Family Medical History / Comment(s): heart problems-(pt not sure what they were) Father Family Medical History: Diabetes Mellitus General Exam - General Exam Comments Initial Comments: This is a well-developed well-nourished awake alert oriented x 3 male Limitations: no limitations General appearance: alert, anxious, in distress Head exam: Present: atraumatic, normocephalic, normal inspection Eye exam: Present: normal appearance, PERRL, EOMI. Absent: scleral icterus, conjunctival injection, periorbital swelling ENT exam: Present: normal exam, mucous membranes moist Neck exam: Present: normal inspection. Absent: tenderness, meningismus, lymphadenopathy Respiratory exam: Present: normal lung sounds bilaterally. Absent: respiratory distress, wheezes, rales, rhonchi, stridor Cardiovascular Exam: Present: normal rhythm, tachycardia, normal heart sounds. Absent: systolic murmur, diastolic murmur, rubs, gallop, clicks GI/Abdominal exam: Present: soft, distended, tenderness, normal bowel sounds. Absent: guarding, rebound, rigid, bruit, pulsatile mass, hernia Extremities exam: Present: normal inspection, full ROM, normal capillary refill. Absent: tenderness, pedal edema, joint swelling, calf tenderness Back exam: Present: normal inspection Neurological exam: Present: alert, oriented X3, CN II-XII intact Psychiatric exam: Present: normal affect, normal mood Skin exam: Present: warm, dry, intact, normal color. Absent: rash Course Vital Signs 07/10/17 07/10/17 22:08 23:56 Temperature 97.2 F L 98.3 F Pulse Rate 109 H 109 H Respiratory 18 20 Rate Blood Pressure 177/133 153/115 O2 Sat by Pulse 100 98 Oximetry - Reevaluation(s) Reevaluation #1: 07/11/17 02:01 The patient persists with abdominal pain nausea vomiting. An IV was started by the [employer] it does appear to his Subcu. Patient Has Refused IVs near the Neck. Patient Be Admitted IM Medication and a PICC Line in the A.M. Medical Decision Making - Medical Decision Making The patient will be admitted for treatment of intractable nausea vomiting abdominal pain. - Lab Data Result diagrams: 07/10/17 23:35 07/10/17 23:35 Lab Results 07/10/17 07/10/17 07/10/17 Range/Units 22:44 23:35 23:35 WBC 6.9 (3.8-10.6) k/uL RBC 4.21 L (4.30-5.90) m/uL Hgb 11.7 L (13.0-17.5) gm/dL Hct 39.5 (39.0-53.0) % MCV 93.8 (80.0-100.0) fL MCH 27.8 (25.0-35.0) pg MCHC 29.6 L (31.0-37.0) g/dL RDW 21.6 H (11.5-15.5) % Plt Count 224 (150-450) k/uL Neutrophils % 75 % Lymphocytes % 11 % Monocytes % 6 % Eosinophils % 6 % Basophils % 0 % Neutrophils # 5.2 (1.3-7.7) k/uL Lymphocytes # 0.7 L (1.0-4.8) k/uL Monocytes # 0.4 (0-1.0) k/uL Eosinophils # 0.4 (0-0.7) k/uL Basophils # 0.0 (0-0.2) k/uL Hypochromasia Marked Anisocytosis Moderate Macrocytosis Slight Sodium 140 (137-145) mmol/L Potassium 5.3 H (3.5-5.1) mmol/L Chloride 98 (98-107) mmol/L Carbon Dioxide 24 (22-30) mmol/L Anion Gap 18 mmol/L BUN 41 H (9-20) mg/dL Creatinine 6.60 H* (0.66-1.25) mg/dL Est GFR (MDRD) Af Amer 12 (>60 ml/min/1.73 sqM) Est GFR (MDRD) Non-Af 10 (>60 ml/min/1.73 sqM) Glucose 125 H (74-99) mg/dL POC Glucose (mg/dL) 109 H (75-99) mg/dL POC Glu Launch Manager Deysi Reynolds Calcium 9.3 (8.4-10.2) mg/dL Total Bilirubin 2.6 H (0.2-1.3) mg/dL AST 44 (17-59) U/L ALT 46 (21-72) U/L Alkaline Phosphatase 415 H (38-126) U/L Total Protein 7.0 (6.3-8.2) g/dL Albumin 3.5 (3.5-5.0) g/dL Amylase 72 (30-110) U/L Lipase 49 (23-300) U/L Acetone, Qual Positive (Negative) - Radiology Data Radiology results: report reviewed (Review the x-ray shows no acute findings), image reviewed Disposition Clinical Impression: Gastroparesis, Persistent vomiting, Abdominal pain Disposition: ADMITTED IP TO THIS [facility] Condition: Stable Referrals: Myron Bailey DO [Primary Care Provider] - 1-2 days
[2017-07-10 22:47] LABS: Glucose,Whole Blood 109 mg/dL (75-99)
[2017-07-10] MEDS ORDERED: ONDANSETRON 4 MG/2 ML VIAL IM STA (23:22)
[2017-07-10] MEDS ORDERED: HYDROmorphone 1 MG/ML 1 ML SYRINGE IM STA (23:22)
[2017-07-10 23:50] LABS: Anisocytosis Moderate; Basophils % (A) 0 %; Eosinophils # (A) 0.4 k/uL (0-0.7); Eosinophils % (A) 6 %; HCT 39.5 % (39.0-53.0); HGB 11.7 gm/dL (13.0-17.5); Hypochromasia Marked; Lymphocytes # (A) 0.7 k/uL (1.0-4.8); Lymphocytes % (A) 11 %; MCH 27.8 pg (25.0-35.0); MCHC 29.6 g/dL (31.0-37.0); MCV 93.8 fL (80.0-100.0); Macrocytosis Slight; Monocytes # (A) 0.4 k/uL (0-1.0); Monocytes % (A) 6 %; Neutrophils # (A) 5.2 k/uL (1.3-7.7); Neutrophils % (A) 75 %; Platelet Count 224 k/uL (150-450); RBC 4.21 m/uL (4.30-5.90); RDW 21.6 % (11.5-15.5); WBC 6.9 k/uL (3.8-10.6)
[2017-07-11 00:08] LABS: Albumin 3.5 g/dL (3.5-5.0); Amylase 72 U/L (30-110); Anion Gap 18 mmol/L; Calcium 9.3 mg/dL (8.4-10.2); Carbon Dioxide 24 mmol/L (22-30); Chloride 98 mmol/L (98-107); Glucose 125 mg/dL (74-99); Lipase 49 U/L (23-300); Sodium 140 mmol/L (137-145); Total Bilirubin 2.6 mg/dL (0.2-1.3)
--- NOTE | 2017-07-11 00:23 | XR ---
EXAM: XR Abdomen, 1 View CLINICAL HISTORY: Reason: abdominal pain TECHNIQUE: Frontal supine view of the abdomen/pelvis. Underpenetration related to patient's large body habitus decreases the sensitivity of this exam. COMPARISON: 05/09/17 FINDINGS: Gastrointestinal tract: Nonspecific bowel gas pattern. No dilation. Bones/joints: Unremarkable. Tubes, lines and devices: Tip of central venous catheter is likely in inferior vena cava. IMPRESSION: No acute findings.
[2017-07-11 00:26] LABS: Blood Urea Nitrogen 41 mg/dL (9-20); Potassium 5.3 mmol/L (3.5-5.1)
[2017-07-11 00:27] LABS: ALT 46 U/L (21-72); AST 44 U/L (17-59); Alkaline Phosphatase 415 U/L (38-126)
[2017-07-11] MEDS ORDERED: MORPHINE SULFATE 2 MG/ML SYRINGE IVP ONE (00:50)
[2017-07-11] MEDS ORDERED: NALOXONE 0.4 MG/ML 1 ML VIAL IV PRN (02:03)
[2017-07-11 02:24] LABS: Glucose,Whole Blood 122 mg/dL (75-99)
[2017-07-11] MEDS: HYDROmorphone 2 MG/ML 1 ML SYRINGE IM PRN ×3 (03:18→11:44)
[2017-07-11 07:16] LABS: Glucose,Whole Blood 114 mg/dL (75-99)
[2017-07-11] MEDS: INSULIN ASPART 100 UNIT/ML 1 ML 10 ML VIAL SQ SCH ×4 (08:20→21:34)
[2017-07-11] MEDS: amLODIPine 10 MG TAB PO SCH (08:21)
[2017-07-11] MEDS ORDERED: cloNIDine HCL 0.1 MG TAB PO SCH (09:00)
[2017-07-11] MEDS ORDERED: SCOPOLAMINE 1.5MG/72HR PATCH TRANSDERM STA (11:06)
[2017-07-11 11:52] LABS: Glucose,Whole Blood 127 mg/dL (75-99)
--- NOTE | 2017-07-11 13:57 | IR ---
PICC LINE PLACEMENT: HISTORY: Infection requiring long-term antibiotic therapy PROCEDURE: Ultrasound and fluoroscopic guidance of PICC line placement. COMPLICATIONS: None ANESTHESIA: 1. 1% Lidocaine locally. FINDINGS/TECHNIQUE: The procedure was explained to the patient. The risks, complications, benefits and alternatives were discussed and any questions were answered. Informed consent was obtained. The patient was placed supine on the fluoroscopic table and prepped and draped in the usual sterile [facility] ion. Utilizing a 21 gauge needle and sonographic and fluoroscopic guidance, access in the vein was achieved and there is placement of a 0.018 guidewire. The vein is patent. A 4-F sheath was placed o julien the guidewire. The guidewire and dilator were removed and a 4-F. PICC line was placed through th e sheath with the tip at the level of the SVC. The sheath was removed, the catheter was flushed and sutured into position. The patient was stable throughout the procedure and remained stable upon disc harge from the Department of Radiology. The vein puncture was patent under ultrasound. A calderon scale image was obtained to document patency of the vein punctured. All elements of the maximal barrier technique were utilized. FLUOROSCOPY TIME: 0.5 minute, one image submitted IMPRESSION: Successful PICC line placement under ultrasound and fluoroscopic guidance.
[2017-07-11] MEDS ORDERED: hydrALAZINE HCL 20 MG/ML 1 ML VIAL IVP STA (14:17)
[2017-07-11] MEDS: HYDROmorphone 2 MG/ML 1 ML SYRINGE IVP PRN ×4 (14:47→23:18)
--- NOTE | 2017-07-11 15:02 | P.HPIM ---
History of Present Illness H&P Date: 07/11/17 Chief Complaint: Acute abdominal pain, vomiting HISTORY OF PRESENT ILLNESS: 26-year-old male patient of Dr. Ronna Bailey with chronic stable medical conditions that include esophagitis, end-stage kidney disease on hemodialysis, depression, hypertension, autonomic dysfunction, who presents to the emergency department with complaints of acute abdominal pain, which began around 320 on . Patient was at dialysis states it wasn't hurting badly and became worse much later on. Has associated nausea and vomiting over 10 episodes. Blood noted in the last episode of vomiting. Pain is described as sharp, some dullness HTA and severe in nature. No diarrhea, no fever chills or sweats. Abdominal pain is similar to previous episodes seen here in this hospital. REVIEW OF SYSTEMS GEN.: [ Tired] EYES: [None] HEENT: [None] NECK: [None] RESPIRATORY: [None] CARDIOVASCULAR: [None] GASTROINTESTINAL: [Abdominal tenderness, nausea vomiting, 1 episode of bloody emesis] GENITOURINARY: [None] MUSCULOSKELETAL: [None] LYMPHATICS: [None] HEMATOLOGICAL: [None] PSYCHIATRY: [None] NEUROLOGICAL: [None] PAST MEDICAL HISTORY Past medical history: Diabetes mellitus type 2, GERD, hypertension, gastroparesis, esophagitis, chronic kidney disease, on hemodialysis. Past surgical history: Tonsillectomy, cholecystectomy, right upper chest wall hemodialysis catheter, left elbow pinning. Past psychological history: Depression SOCIAL HISTORY: Additional psychological/social history: None Smoking use history: Former smoker smoked from [id number] Alcohol use history: Denies Drug use history: Denies Marital status: Single Living situation: Lives with mother Work history: Unemployed FAMILY HISTORY: Patient's sister had diabetes, end-stage kidney disease and is . ALLERGIES: NO KNOWN ALLERGIES HOME MEDICATION: Lasix 60 mg by mouth daily Vitamin D2 50,000 units by mouth every 7 days Potassium chloride ER 20 mg once by mouth daily Insulin lispro 4 units subcu before meals 3 times a day Metoprolol tartrate 100 mg by mouth twice a day Trazodone 25 mg by mouth at bedtime Clonidine 0.1 mg by mouth daily Bupropion SR 150 mg by mouth twice a day Amlodipine 10 mg by mouth daily Ranitidine 159 g by mouth at bedtime Ondansetron 4 mg by mouth every 8 hours when necessary Reglan 5 mg by mouth 3 times a day Lisinopril 20 mg by mouth twice a day Insulin glargine gene 18 units subcu at bedtime Calcium acetate 667 mg by mouth 3 times a day with meals VITAL SIGNS: [Temperature 98.5, pulse 107, respiratory rate 18, blood pressure 141/97, oxygen saturation 92% on room air.. BMI noted] GENERAL: [Average built, sitting up, comfortable]. EYES: [Pupils equal. Conjunctiva deedee]l. HEENT: [External appearance of nose and ears normal, oral cavity grossly normal] . NECK: [JVD not raised; masses not palpable]. HEART: [First and second heart sounds are normal; no edema]. LUNGS:[ Respiratory rate normal; clear to auscultation]. ABDOMEN: [Soft, nontender, liver spleen not palpable, no masses palpable]. LYMPHATICS: [No lymph nodes palpable in the axilla and neck]. PSYCH: [Alert and oriented x3; mood and affect deedee]l. NEUROLOGICAL: [Cranial nerves grossly intact; no facial asymmetry, power and sensation grossly intact]. INVESTIGATIONS: LABS: Hemoglobin 11.7, calcium 5.3, BUN 41, creatinine 6.60, Accu-Cheks noted, alkaline phosphatase 415, total bilirubin 2.6. ASSESSMENT: -Acute on Chronic abdominal pain that has been seen both by gastroenterology and pain management at this site in the past. -End-stage kidney disease on hemodialysis. Patient has been noncompliant. -Gastroparesis secondary to underlying diabetes mellitus2 -Gastroesophageal reflux disease. -Chronic esophagitis. -Autonomic dysfunction of patient long-standing diabetes. -Obesity. PLAN: Home medications reordered will arrange for hemodialysis with nephrology. Scheduled for PICC line placement today. We'll start him on a clear liquid diet , see how he does. Plan of care discussed at the bedside patient's agreeable. We'll follow closely. ASSISTIVE TECHNOLOGY TRAINER STATEMENT: Patient was seen and examined by nurse practitioner Kristen Martínez and all elements of the case were discussed with attending Dr. Clancy. Past Medical History Past Medical History: Asthma, Heart Failure, Diabetes Mellitus, GERD/Reflux, Hypertension, Osteoarthritis (OA), Renal Disease Additional Past Medical History / Comment(s): IDDM type I, GASTROPARESIS, gastritis, esophagitis,cyclic vomiting syndrome, DKA episodes, hiatal hernia, as child had seizure r/t high fever, pancreatits(idiopathic), chronic kidney disease stage III-hemodialysis //Saturday, L leg neuropathy, migraines. dialysis CHF History of Any Multi-Drug Resistant Organisms: MRSA Date of last positivie culture/infection: MDRO Source:: CHIN/ Rt leg Past Surgical History: Cholecystectomy, Orthopedic Surgery, Tonsillectomy Additional Past Surgical History / Comment(s): R upper chest hemodialysis catheter, PICC line, LEFT ELBOW pinned, egd's w/ bx's last done 05-30-16.12-07-16 picc line exchange. Past Anesthesia/Blood Transfusion Reactions: No Reported Reaction Past Psychological History: ADD/ADHD, Anxiety, Depression Additional Psychological History / Comment(s): Pt resides with his mother. no home care services recieved. has a glucometer and a bp machine, walker and w/c if ever needed.not currently using-pt is independant. Smoking Status: Former smoker Past Alcohol Use History: None Reported Additional Past Alcohol Use History / Comment(s): Pt states he started smoking in 2006 and currently smokes about every other day now. Past Drug Use History: None Reported Additional Drug Use History / Comment(s): pt states smokes marijuana a couple times per month-last used 04/20/17. - Past Family History Mother Family Medical History: Diabetes Mellitus Additional Family Medical History / Comment(s): heart problems-(pt not sure what they were) Father Family Medical History: Diabetes Mellitus Medications and Allergies Home Medications Medication Instructions Recorded Confirmed Type Metoprolol Tartrate [Lopressor] 100 mg PO BID #60 tab 07/16/15 07/10/17 Rx INSULIN LISPRO (HumaLOG) [humaLOG] 4 units SQ AC-TID 10/16/16 07/10/17 History Potassium Chloride ER [K-Dur 20] 20 meq PO DAILY 10/20/16 07/10/17 History Ergocalciferol (Vitamin D2) 50,000 unit PO Q7D 10/26/16 07/10/17 History [Vitamin D2] Ondansetron [Zofran] 4 mg PO Q8HR PRN #10 05/09/17 07/11/17 Rx Furosemide [Lasix] 60 mg PO DAILY 07/10/17 07/10/17 History HYDROcodone/APAP 5-325MG [Preston 1 tab PO TID PRN 07/10/17 07/10/17 History 5-325] Brimonidine Tartrate [Alphagan P 1 drop RIGHT EYE BID 07/11/17 07/11/17 History 0.2% Ophth Soln] Calcium Acetate [PhosLo] 667 mg PO TID 07/11/17 07/11/17 History Gatifloxacin [Zymaxid Ophth Soln] 1 drop RIGHT EYE QID 07/11/17 07/11/17 History Homatropine HBr [Homatropine 1 drop RIGHT EYE BID 07/11/17 07/11/17 History Hydrobromide] Insulin Glargine [Lantus] 18 units SQ HS 07/11/17 07/11/17 History Lisinopril [Zestril] 20 mg PO BID 07/11/17 07/11/17 History Mag Hydrox/Al Hydrox/Simeth 15 ml PO BID PRN 07/11/17 07/11/17 History [Maalox] Metoclopramide HCl [Reglan] 5 mg PO TID-W/MEALS 07/11/17 07/11/17 History Ranitidine HCl [Zantac] 150 mg PO HS 07/11/17 07/11/17 History amLODIPine [Norvasc] 10 mg PO DAILY 07/11/17 07/11/17 History hydrALAZINE HCL 25 mg PO TID 07/11/17 07/11/17 History prednisoLONE ACETATE 1% OPHTH 1 drop RIGHT EYE QID 07/11/17 07/11/17 History [Pred Forte 1%] Allergies Allergy/AdvReac Type Severity Reaction Status Date / Time No Known Allergies Allergy Verified 05/09/17 11:18 Physical Exam Vitals: Vital Signs Temp Pulse Pulse Resp BP BP Pulse Ox 07/11/17 07:00 98.5 F 107 H 18 141/97 92 L 07/11/17 04:00 97.6 F 119 H 20 155/115 98 07/11/17 03:48 120 H 07/11/17 02:38 97.1 F L 117 H 18 142/97 94 L 07/10/17 23:56 98.3 F 109 H 20 153/115 98 07/10/17 22:08 97.2 F L 109 H 18 177/133 100 Intake and Output 07/10/17 07/11/17 07/11/17 22:59 06:59 14:59 Output Total 300 Balance -300 Output: Emesis 300 Other: Voiding Method Toilet # Jill 1 Weight 104.326 kg 102.7 kg Results CBC & Chem 7: 07/10/17 23:35 07/10/17 23:35 Labs: Abnormal Lab Results - Last 24 Hours (Table) 07/10/17 07/10/17 07/10/17 Range/Units 22:44 23:35 23:35 RBC 4.21 L (4.30-5.90) m/uL Hgb 11.7 L (13.0-17.5) gm/dL MCHC 29.6 L (31.0-37.0) g/dL RDW 21.6 H (11.5-15.5) % Lymphocytes # 0.7 L (1.0-4.8) k/uL Potassium 5.3 H (3.5-5.1) mmol/L BUN 41 H (9-20) mg/dL Creatinine 6.60 H* (0.66-1.25) mg/dL Glucose 125 H (74-99) mg/dL POC Glucose (mg/dL) 109 H (75-99) mg/dL Total Bilirubin 2.6 H (0.2-1.3) mg/dL Alkaline Phosphatase 415 H (38-126) U/L 07/11/17 07/11/17 Range/Units 02:20 07:13 RBC (4.30-5.90) m/uL Hgb (13.0-17.5) gm/dL MCHC (31.0-37.0) g/dL RDW (11.5-15.5) % Lymphocytes # (1.0-4.8) k/uL Potassium (3.5-5.1) mmol/L BUN (9-20) mg/dL Creatinine (0.66-1.25) mg/dL Glucose (74-99) mg/dL POC Glucose (mg/dL) 122 H 114 H (75-99) mg/dL Total Bilirubin (0.2-1.3) mg/dL Alkaline Phosphatase (38-126) U/L Thrombosis Risk Factor Assmnt - Choose All That Apply Any of the Below Risk Factors Present?: Yes Each Factor Represents 1 point: Obesity (BMI >25) Thrombosis Risk Factor Assessment Total Risk Factor Score: 1 Thrombosis Risk Factor Assessment Level: Low Risk
[2017-07-11] MEDS: ONDANSETRON 4 MG/2 ML VIAL IVP PRN ×2 (15:33→21:09)
[2017-07-11] MEDS: METOPROLOL TARTRATE 50 MG TAB PO SCH ×2 (15:43→20:36)
[2017-07-11] MEDS: LISINOPRIL 20 MG TAB PO SCH ×2 (15:44→20:36)
[2017-07-11] MEDS: hydrALAZINE HCL 25 MG TAB PO SCH ×2 (15:44→20:36)
[2017-07-11 16:52] LABS: Glucose,Whole Blood 129 mg/dL (75-99)
[2017-07-11] MEDS: prednisoLONE ACETATE 1% OPHTH DROPS 5 ML BTL RIGHT EYE SCH ×2 (17:37→20:35)
[2017-07-11] MEDS ORDERED: hydrALAZINE HCL 20 MG/ML 1 ML VIAL IVP PRN (17:56)
[2017-07-11] MEDS ORDERED: ENALAPRILAT 1.25 MG/ML 1 ML VIAL IVP PRN (17:56)
[2017-07-11] MEDS ORDERED: cloNIDine HCL 0.2 MG TAB PO STA (18:02)
[2017-07-11] MEDS: GATIFLOXACIN 0.5% RIGHT EYE SCH ×2 (19:00→20:34)
[2017-07-11] MEDS: BRIMONIDINE TARTRATE 0.2% DROPS 5 ML BTL RIGHT EYE SCH (20:35)
[2017-07-11] MEDS: HOMATROPINE HBR RIGHT EYE SCH (20:35)
[2017-07-11] MEDS: OPTH RIGHT EYE SCH (20:35)
[2017-07-11 21:05] LABS: Glucose,Whole Blood 134 mg/dL (75-99)
[2017-07-11] MEDS: CALCIUM CARBONATE 500 MG CHEWABLE PO PRN (22:18)
[2017-07-11] MEDS: cloNIDine HCL 0.1 MG TAB PO SCH (22:21)
--- NOTE | 2017-07-11 23:31 | HP ---
HISTORY AND PHYSICAL DATE OF SERVICE: 07/11/2017 ATTENDING NOTE: This patient was seen and examined by me. I discussed the case with the nurse practitioner Ms. Martínez. Patient with multiple problems presented with nausea, vomiting, abdominal pain. Blood pressure was running high. Mother is present. The patient has had retinal detachment in both eyes and they are currently working on the right eye. The patient also had some abdominal ascitic fluid drained. No fever. PHYSICAL EXAMINATION: VITAL SIGNS ON PRESENTATION: Temperature 97.2, pulse 109, respiration 18, blood pressure 137/133, repeat down to 142/97, pulse ox 94%. GENERAL APPEARANCE: Well built; BMI 35.5. EYES: Decreased vision. NECK: JVD unable to assess. RESPIRATORY: Effort normal. LUNGS: Fair air entry. CARDIOVASCULAR: First and second sounds normal. ABDOMEN: Slightly distended. Some tenderness. No guarding or rigidity. PSYCHIATRY: Alert and oriented x3. Mood and affect a bit low. INVESTIGATIONS: White count 6.9, hemoglobin 11.7, potassium 5.3, BUN 41, creatinine 6.6. ASSESSMENT: 1. Acute on chronic abdominal pain with nausea, vomiting, likely flareup of gastroparesis secondary to autonomic dysfunction. 2. End-stage kidney disease, on hemodialysis. 3. Gastroesophageal reflux disease. 4. Chronic esophagitis. 5. Autonomic dysfunction, long-standing diabetes. 6. Obesity. 7. Bilateral retinal detachment with decreased poor eyesight. Patient can only see a blur. 8. Gastroesophagitis. PLAN: Home medications will be resumed. Nephrology was consulted. Care was discussed with the patient and mother at the bedside. The patient is on clear liquids. Diet will be advanced as tolerated. MMODL / IJN: [id number] /
[2017-07-12] MEDS: HYDROmorphone 2 MG/ML 1 ML SYRINGE IVP PRN ×4 (02:08→11:31)
[2017-07-12 02:50] LABS: Glucose,Whole Blood 125 mg/dL (75-99)
[2017-07-12] MEDS: CALCIUM CARBONATE 500 MG CHEWABLE PO PRN ×2 (03:00→11:32)
[2017-07-12] MEDS: ONDANSETRON 4 MG/2 ML VIAL IVP PRN ×3 (03:01→18:49)
[2017-07-12 06:40] LABS: Anisocytosis Moderate; Basophils % (A) 1 %; Eosinophils # (A) 0.2 k/uL (0-0.7); Eosinophils % (A) 3 %; HCT 39.3 % (39.0-53.0); HGB 11.5 gm/dL (13.0-17.5); Hypochromasia Marked; Lymphocytes # (A) 0.6 k/uL (1.0-4.8); Lymphocytes % (A) 9 %; MCH 27.6 pg (25.0-35.0); MCHC 29.2 g/dL (31.0-37.0); MCV 94.6 fL (80.0-100.0); Macrocytosis Slight; Monocytes # (A) 0.4 k/uL (0-1.0); Monocytes % (A) 6 %; Neutrophils # (A) 5.7 k/uL (1.3-7.7); Neutrophils % (A) 81 %; Platelet Count 247 k/uL (150-450); RBC 4.15 m/uL (4.30-5.90); RDW 21.6 % (11.5-15.5)
[2017-07-12 06:58] LABS: Albumin 3.4 g/dL (3.5-5.0); Calcium 9.8 mg/dL (8.4-10.2); Potassium 4.8 mmol/L (3.5-5.1); Total Bilirubin 2.2 mg/dL (0.2-1.3); Total Protein 6.8 g/dL (6.3-8.2)
[2017-07-12 07:34] LABS: Glucose,Whole Blood 124 mg/dL (75-99)
[2017-07-12] MEDS: INSULIN ASPART 100 UNIT/ML 1 ML 10 ML VIAL SQ SCH ×4 (07:37→20:58)
[2017-07-12] MEDS: LISINOPRIL 20 MG TAB PO SCH ×2 (07:58→20:59)
[2017-07-12] MEDS: cloNIDine HCL 0.1 MG TAB PO SCH ×3 (07:58→21:00)
[2017-07-12] MEDS: amLODIPine 10 MG TAB PO SCH (07:58)
[2017-07-12] MEDS: hydrALAZINE HCL 25 MG TAB PO SCH (07:58)
[2017-07-12] MEDS: METOPROLOL TARTRATE 50 MG TAB PO SCH ×2 (07:58→21:00)
[2017-07-12] MEDS: HOMATROPINE HBR RIGHT EYE SCH ×2 (07:59→20:59)
[2017-07-12] MEDS: BRIMONIDINE TARTRATE 0.2% DROPS 5 ML BTL RIGHT EYE SCH ×2 (07:59→20:59)
[2017-07-12] MEDS: prednisoLONE ACETATE 1% OPHTH DROPS 5 ML BTL RIGHT EYE SCH ×4 (07:59→21:00)
[2017-07-12] MEDS: OPTH RIGHT EYE SCH ×2 (07:59→20:59)
[2017-07-12] MEDS: GATIFLOXACIN 0.5% RIGHT EYE SCH ×4 (07:59→21:00)
[2017-07-12 12:03] LABS: Glucose,Whole Blood 122 mg/dL (75-99)
--- NOTE | 2017-07-12 14:02 | P.CRDCN ---
History of Present Illness Consult date: 07/12/17 History of present illness: Mr. avelar is a pleasant 26-year-old -[place] male past medical history significant for diabetes mellitus, hypertension, chronic kidney disease on hemodialysis Saturday, gastroesophageal reflux disease and gastroparesis. He follows with Dr. Tyler as an outpatient. He presented to the hospital with complaints of acute abdominal pain, nausea and vomiting. We have been asked to see the patient in consultation for evaluation of heart failure. Most recent echocardiogram was performed 10/2015 revealed preserved left ventricular systolic function with ejection fraction 55-60%, mild concentric left ventricular hypertrophy, mild pulmonary hypertension, mild tricuspid regurgitation, mild mitral regurgitation, and mildly dilated left atrium. The time of my exam he is seen sitting up in the chair rocking back and forth complaining of abdominal pain and nausea. He states he underwent dialysis Saturday which was a typical course. He denies chest pain, dizziness , palpitations, shortness of breath, diaphoresis. He has been noted to be hypertensive since admission. Most recent blood pressure 158/125. Current cardiac medications include amlodipine 10 mg daily, hydralazine 25 mg 3 times a day, lisinopril 20 mg twice a day, Lasix 60 mg daily, potassium replacement 20 mg, metoprolol 100 mg twice a day. Review of Systems CONSTITUTIONAL: Denies fever. Denies chills. EYES: Denies blurred vision. Denies vision changes. Denies eye pain. EARS, NOSE, MOUTH & THROAT: Denies headache. Denies sore throat. Denies ear pain. CARDIOVASCULAR: Denies chest pain. Denies shortness of breath. Denies orthopnea. Denies PND. Denies palpitations. RESPIRATORY: Denies cough. GASTROINTESTINAL: Complains of abdominal pain, nausea and vomiting. Denies diarrhea. Denies constipation. MUSCULOSKELETAL: Denies myalgias. INTEGUMENTARY: Denies pruitis. Denies rash. NEUROLOGIC: Denies numbness. Denies tingling. Denies weakness. PSYCHIATRIC: Denies anxiety. Denies depression. ENDOCRINE: Denies fatigue. Denies weight change. Denies polydipsia. Denies polyurina. GENITOURINARY: Denies burning, hematuria or urgency with micturation. HEMATOLOGIC: Denies history of anemia. Denies bleeding. Past Medical History Past Medical History: Asthma, Heart Failure, Diabetes Mellitus, GERD/Reflux, Hypertension, Osteoarthritis (OA), Renal Disease Additional Past Medical History / Comment(s): IDDM type I, GASTROPARESIS, gastritis, esophagitis,cyclic vomiting syndrome, DKA episodes, hiatal hernia, as child had seizure r/t high fever, pancreatits(idiopathic), chronic kidney disease stage III-hemodialysis //Saturday, L leg neuropathy, migraines. dialysis CHF History of Any Multi-Drug Resistant Organisms: MRSA Date of last positivie culture/infection: MDRO Source:: CHIN/ Rt leg Past Surgical History: Cholecystectomy, Orthopedic Surgery, Tonsillectomy Additional Past Surgical History / Comment(s): R upper chest hemodialysis catheter, PICC line, LEFT ELBOW pinned, egd's w/ bx's last done 05-30-16.12-07-16 picc line exchange. Past Anesthesia/Blood Transfusion Reactions: No Reported Reaction Past Psychological History: ADD/ADHD, Anxiety, Depression Additional Psychological History / Comment(s): Pt resides with his mother. no home care services recieved. has a glucometer and a bp machine, walker and w/c if ever needed.not currently using-pt is independant. Smoking Status: Former smoker Past Alcohol Use History: None Reported Additional Past Alcohol Use History / Comment(s): Pt states he started smoking in 2006 and currently smokes about every other day now. Past Drug Use History: None Reported Additional Drug Use History / Comment(s): pt states smokes marijuana a couple times per month-last used 04/20/17. - Past Family History Mother Family Medical History: Diabetes Mellitus Additional Family Medical History / Comment(s): heart problems-(pt not sure what they were) Father Family Medical History: Diabetes Mellitus Medications and Allergies Home Medications Medication Instructions Recorded Confirmed Type Metoprolol Tartrate [Lopressor] 100 mg PO BID #60 tab 07/16/15 07/10/17 Rx INSULIN LISPRO (HumaLOG) [humaLOG] 4 units SQ AC-TID 10/16/16 07/10/17 History Potassium Chloride ER [K-Dur 20] 20 meq PO DAILY 10/20/16 07/10/17 History Ergocalciferol (Vitamin D2) 50,000 unit PO Q7D 10/26/16 07/10/17 History [Vitamin D2] Ondansetron [Zofran] 4 mg PO Q8HR PRN #10 05/09/17 07/11/17 Rx Furosemide [Lasix] 60 mg PO DAILY 07/10/17 07/10/17 History HYDROcodone/APAP 5-325MG [Severy 1 tab PO TID PRN 07/10/17 07/10/17 History 5-325] Brimonidine Tartrate [Alphagan P 1 drop RIGHT EYE BID 07/11/17 07/11/17 History 0.2% Ophth Soln] Calcium Acetate [PhosLo] 667 mg PO TID 07/11/17 07/11/17 History Gatifloxacin [Zymaxid Ophth Soln] 1 drop RIGHT EYE QID 07/11/17 07/11/17 History Homatropine HBr [Homatropine 1 drop RIGHT EYE BID 07/11/17 07/11/17 History Hydrobromide] Insulin Glargine [Lantus] 18 units SQ HS 07/11/17 07/11/17 History Lisinopril [Zestril] 20 mg PO BID 07/11/17 07/11/17 History Mag Hydrox/Al Hydrox/Simeth 15 ml PO BID PRN 07/11/17 07/11/17 History [Maalox] Metoclopramide HCl [Reglan] 5 mg PO TID-W/MEALS 07/11/17 07/11/17 History Ranitidine HCl [Zantac] 150 mg PO HS 07/11/17 07/11/17 History amLODIPine [Norvasc] 10 mg PO DAILY 07/11/17 07/11/17 History hydrALAZINE HCL 25 mg PO TID 07/11/17 07/11/17 History prednisoLONE ACETATE 1% OPHTH 1 drop RIGHT EYE QID 07/11/17 07/11/17 History [Pred Forte 1%] Allergies Allergy/AdvReac Type Severity Reaction Status Date / Time No Known Allergies Allergy Verified 05/09/17 11:18 Physical Exam Vitals: Vital Signs Temp Pulse Resp BP BP Pulse Ox 07/12/17 07:00 98.5 F 96 16 158/125 94 L 07/12/17 06:13 97.4 F L 94 161/117 96 07/12/17 02:12 90 153/117 07/12/17 00:32 133/96 07/11/17 23:00 97.8 F 96 12 160/115 96 07/11/17 22:19 94 160/115 07/11/17 20:30 106 H 156/108 07/11/17 18:55 100 153/107 07/11/17 17:30 121 H 171/126 07/11/17 16:45 109 H 175/134 07/11/17 16:30 106 H 166/126 07/11/17 15:30 103 H 164/122 07/11/17 15:10 108 H 164/124 07/11/17 14:48 97.1 F L 117 H 22 166/137 96 Intake and Output 07/11/17 07/12/17 07/12/17 22:59 06:59 14:59 Output Total 1350 200 Balance -1350 -200 Output: Emesis 1350 200 Other: Voiding Method Toilet Urinal # Voids 1 0 # Emeses 4 GENERAL: This is a 26-year-old -[place] male in no apparent distress at the time of my examination. HEENT: Head is atraumatic, normocephalic. Sclerae anicteric. Conjunctivae are clear. Mucous membranes of the mouth are moist. Neck is supple. There is no jugular venous distention. No carotid bruit is heard. LUNGS: Clear to auscultation no wheezes, rales or rhonchi. No chest wall tenderness is noted on palpation or with deep breathing. Diminished. Possibly secondary to poor effort. HEART: Regular rate and rhythm with faint systolic ejection murmur at the base, no rubs or gallops. S1 and S2 heard. ABDOMEN: Soft, nontender. Bowel sounds are heard. No organomegaly noted. EXTREMITIES: 2+ peripheral pulses with no evidence of peripheral edema and no calf tenderness noted. NEUROLOGIC: Patient is awake, alert and oriented x3. Results 07/12/17 05:59 07/12/17 05:59 Cardiac Enzymes 07/12/17 Range/Units 05:59 AST 28 (17-59) U/L CBC 07/12/17 Range/Units 05:59 WBC 7.0 (3.8-10.6) k/uL RBC 4.15 L (4.30-5.90) m/uL Hgb 11.5 L (13.0-17.5) gm/dL Hct 39.3 (39.0-53.0) % Plt Count 247 (150-450) k/uL Comprehensive Metabolic Panel 07/12/17 Range/Units 05:59 Sodium 142 (137-145) mmol/L Potassium 4.8 (3.5-5.1) mmol/L Chloride 93 L (98-107) mmol/L Carbon Dioxide 29 (22-30) mmol/L BUN 46 H (9-20) mg/dL Creatinine 8.15 H* (0.66-1.25) mg/dL Glucose 140 H (74-99) mg/dL Calcium 9.8 (8.4-10.2) mg/dL AST 28 (17-59) U/L ALT 44 (21-72) U/L Alkaline Phosphatase 365 H (38-126) U/L Total Protein 6.8 (6.3-8.2) g/dL Albumin 3.4 L (3.5-5.0) g/dL Current Medications Generic Name Dose Route Start Last Admin Trade Name Freq PRN Reason Stop Dose Admin Amlodipine Besylate 10 mg 07/11/17 09:00 07/12/17 07:58 Norvasc PO 10 mg DAILY SHERLEY Administration Brimonidine Tartrate 1 drops 07/11/17 21:00 07/12/17 07:59 Alphagan P 0.2% Ophth Soln RIGHT EYE 1 drops BID SHERLEY Administration Calcium Carbonate/Glycine 1,000 mg 07/11/17 20:59 07/12/17 11:32 Tums PO 1,000 mg QID PRN Administration Heartburn Clonidine 0.1 mg 07/11/17 22:00 07/12/17 07:58 Catapres PO 0.1 mg TID SHERLEY Administration Hydralazine HCl 25 mg 07/11/17 16:00 07/12/17 07:58 Apresoline PO 25 mg TID SHERLEY Administration Hydralazine HCl 15 mg 07/11/17 17:56 Apresoline IVP Q4HR PRN Blood Pressure - High Hydromorphone HCl 1 mg 07/11/17 14:13 07/12/17 11:31 Dilaudid IVP 1 mg Q3HR PRN Administration Pain Insulin Aspart 0 unit 07/11/17 07:30 07/12/17 12:18 Novolog SQ Not Given ACHS [facility] Protocol Lisinopril 20 mg 07/11/17 14:30 07/12/17 07:58 Zestril PO 20 mg BID SHERLEY Administration Metoprolol Tartrate 100 mg 07/11/17 14:30 07/12/17 07:58 Lopressor PO 100 mg BID SHERLEY Administration Naloxone HCl 0.2 mg 07/11/17 02:03 Narcan IV Q2M PRN Opioid Reversal Gatifloxacin 0.5% [ 1 drop 07/11/17 18:00 07/12/17 12:18 Zymaxid Ophth Soln] RIGHT EYE 1 drop 1 Drop QID SHERLEY Administration Homatropine Hbr 5% 1 drop 07/11/17 21:00 07/12/17 07:59 Opth Soln RIGHT EYE 1 drop BID SHERLEY Administration Ondansetron HCl 4 mg 07/11/17 14:52 07/12/17 11:31 Zofran IVP 4 mg Q6HR PRN Administration Nausea And Vomiting Prednisolone Acetate 1 drops 07/11/17 18:00 07/12/17 12:19 Pred Forte 1% RIGHT EYE 1 drops QID SHERLEY Administration Intake and Output 07/11/17 07/12/17 07/12/17 22:59 06:59 14:59 Output Total 1350 200 Balance -1350 -200 Output: Emesis 1350 200 Other: Voiding Method Toilet Urinal # Voids 1 0 # Emeses 4 07/12/17 05:59 07/12/17 05:59 Assessment and Plan Assessment: ASSESSMENT 1. Hypertensive urgency 2. Chronic kidney disease on hemodialysis 3. Diabetes mellitus 4. Intractable abdominal pain with nausea and vomiting PLAN Discontinue IV when necessary medications for blood pressure control. Recommend resuming home medications to include amlodipine, lisinopril, metoprolol, and agree with the addition of Catapres. Increase hydralazine PO. Further blood pressure management by nephrology. We will see Mr. Avelar on an as needed basis. Thank you kindly for this consultation. Nurse Practitioner note has been reviewed, I agree with a documented findings and plan of care. Patient was seen and examined.
[2017-07-12] MEDS: hydrALAZINE HCL 50 MG TAB PO SCH ×2 (15:08→21:00)
[2017-07-12] MEDS: HYDROcodone/APAP 5-325MG 1 EACH TAB PO PRN (15:08)
[2017-07-12 17:18] LABS: Glucose,Whole Blood 92 mg/dL (75-99)
--- NOTE | 2017-07-12 17:50 | CONS ---
CONSULTATION REASON FOR CONSULT: End-stage renal disease. HISTORY OF PRESENT ILLNESS: The patient is a 26-year-old male with end-stage renal disease, who was admitted to the hospital with abdominal pain and vomiting. He has been quite hypertensive. The patient is now compliant with dialysis and states that he has not missed any outpatient treatments. He has had multiple previous admissions with nausea, vomiting, and abdominal pain. PAST MEDICAL HISTORY: End-stage renal disease, strong history of noncompliance previously, currently improved, asthma, type 1 diabetes, gastroesophageal reflux disease, osteoarthritis, hypertension, gastroparesis, neuropathy, migraines. PAST SURGICAL HISTORY: IJ PermCath placement, tonsillectomy, elbow surgery, PICC line. SOCIAL HISTORY: Positive for smoking. No drug abuse except for marijuana. MEDICATIONS: Medications at home included insulin, Wellbutrin, Lopressor, Zofran, Reglan, Zestril, K- Dur, Zantac, vitamin D, clonidine, Norvasc, PhosLo. ALLERGIES: None. REVIEW OF SYSTEMS: As per HPI. Other systems negative. EXAMINATION: Patient is currently sitting up in a bedside chair. He is comfortable. He is not in any acute distress. Blood pressure is elevated 160/124, heart rate 82 per minute. Patient is afebrile. Examination of the heart S1, S2. Examination lungs bilateral breath sounds are heard. Decreased breath sounds at bases with few basal crackles heard. Abdomen is soft, nontender. Examination of the lower extremities shows edema 1+ bilaterally. WELFARE ADMINISTRATOR exam is grossly intact. LAB: Shows sodium 142, potassium 4.8, hemoglobin 11.5 g/dL. ASSESSMENT: 1. End-stage renal disease, on hemodialysis on a Saturday, Saturday, Saturday schedule currently by [facility] Contre[facility]. The patient will be dialyzed today. 2. Hypertension, partly volume sensitive. Increase UF as tolerated with hemodialysis today. 3. Nausea and vomiting, most likely secondary to diabetic gastroparesis. 4. History of noncompliance with dialysis. PLAN: Hemodialysis today with increased ultrafiltration. Continue current p.o. medications. If blood pressure does not improve post dialysis, we can increase the hydralazine further and increase clonidine as well. Thank you for this consultation. We will continue to follow the patient with you during his hospitalization. MMODL / IJN: [id number] /
[2017-07-12] MEDS: MAG HYDROX/AL HYDROX/SIMETH 30 ML CUP PO PRN (18:49)
[2017-07-12] MEDS ORDERED: HEPARIN SODIUM,PORCINE 5,000 UNIT/ML 1 ML VIAL ONE (19:00)
--- NOTE | 2017-07-12 20:09 | P.PN ---
Progress Note - Text Progress Note Date: 07/12/17 DATE OF SERVICE: 07/12/2017 PRESENTING COMPLAINT: Nausea and vomiting HISTORY OF PRESENT ILLNESS: 86-year-old male who presented with complaints of acute abdominal pain and nausea and vomiting. Admitted for the same INTERVAL HISTORY: 07/12/2017: Patient sitting up in a chair slumped over to his left side arousable, states he 's been unable to eat any meals, and states he has been vomiting no evidence has been seen either by nursing or myself. Continues to be hypertensive with systolic being in the 1 teens to 120s. Cardiology to see the patient, is followed in the outpatient setting by SATNAM Tyler Will receive dialysis today, REVIEW OF SYSTEMS: Done for constitutional ,cardiovascular, GI, pulmonary with relevant findings as above. CURRENT MEDICATIONS [place]onda, Maalox, Norvasc, Alphagan, Tums, clonidine, Apresoline, NovoLog, Cipro, Lopressor, PHYSICAL EXAM VITAL SIGNS: Temperature 98.5, pulse 96, respiratory rate 16, blood pressure 158/125, oxygen saturation 94% on room air. GENERAL APPEARANCE: Lying in bed, not in distress. HEENT: Normocephalic, Pupils equal. Conjunctiva normal. JVD not raised. Mass not palpable.: RESPIRATORY: Respiratory effort normal. Lungs clear to auscultation. CARDIOVASCULAR: First and second sounds normal. No edema. ABDOMEN: Soft. Liver and spleen not palpable. No tenderness. No mass palpable. PSYCHIATRY: Alert and oriented x3. Mood and affect normal. INVESTIGATIONS: Hemoglobin 11.5, chloride 93, BUN 46, creatinine 8.15, Accu-Cheks noted. Alkaline phosphatase 365, ASSESSMENT: -Acute on chronic abdominal pain with nausea, vomiting, likely flareup of gastroparesis secondary to autonomic dysfunction. -End-stage kidney disease, on hemodialysis. -Hypertensive urgency, uncontrolled -Gastroesophageal reflux disease. -Chronic esophagitis. -Autonomic dysfunction, long-standing diabetes. -Obesity, body mass index 35.5 -Bilateral retinal detachment with decreased or eyesight. Patient can only see a blur -Gastroesophagitis. PLAN: Advance diet as tolerated, hemodialysis today with increased ultrafiltration, if blood pressure does not improve postdialysis plans by nephrology to increase hydralazine and increase clonidine. Discharge planning for the next 24 hours he stop patient condition. Plan of care discussed at the bedside will follow closely. HIDE AND SKIN COLERER statement: Patient was seen and examined by nurse practitioner Kristen Martínez and all elements of the case discussed with attending Dr. Clancy
[2017-07-12 20:43] LABS: Glucose,Whole Blood 112 mg/dL (75-99)
--- NOTE | 2017-07-12 22:26 | PN ---
PROGRESS NOTE DATE OF SERVICE: 07/12/17 The patient seen and examined by me. I discussed with nurse practitioner, Tatyanaawa. This is a patient I spoke to Dr. Ho about, has remained very noncompliant with dialysis, presents with gastroparesis flare up, uncontrolled blood pressure. The patient was due for dialysis today. Still nauseous present, not eating much. PHYSICAL EXAMINATION: Temperature 98.5, pulse 82, blood pressure 160/124, pulse 94% on room air. Lying in bed, tired-appearing, mood and affect somewhat lethargic, but answers questions. INVESTIGATIONS: Potassium 4.8, BUN 46, creatinine 8.15. Accu-Cheks are noted. ASSESSMENT: 1. Acute diabetic gastroparesis failure of dysfunction. 2. End-stage kidney disease on hemodialysis, noncompliant. 3. Hypertensive urgency. PLAN: Continue current medication and treatment plan. Encourage oral intake. Prognosis is poor. MMODL / IJN: [id number] /
[2017-07-13 01:39] LABS: Glucose,Whole Blood 94 mg/dL (75-99)
[2017-07-13] MEDS: MAG HYDROX/AL HYDROX/SIMETH 30 ML CUP PO PRN ×3 (01:45→13:04)
[2017-07-13] MEDS: HYDROcodone/APAP 5-325MG 1 EACH TAB PO PRN ×3 (01:46→15:19)
[2017-07-13 07:35] LABS: Glucose,Whole Blood 99 mg/dL (75-99)
[2017-07-13 08:01] VITALS: RESP 16
[2017-07-13] MEDS: INSULIN ASPART 100 UNIT/ML 1 ML 10 ML VIAL SQ SCH ×2 (08:01→12:00)
[2017-07-13] MEDS: hydrALAZINE HCL 50 MG TAB PO SCH ×2 (08:03→15:19)
[2017-07-13] MEDS: METOPROLOL TARTRATE 50 MG TAB PO SCH (08:03)
[2017-07-13] MEDS: LISINOPRIL 20 MG TAB PO SCH (08:03)
[2017-07-13] MEDS: cloNIDine HCL 0.1 MG TAB PO SCH ×2 (08:03→15:19)
[2017-07-13] MEDS: amLODIPine 10 MG TAB PO SCH (08:03)
[2017-07-13] MEDS: BRIMONIDINE TARTRATE 0.2% DROPS 5 ML BTL RIGHT EYE SCH (08:04)
[2017-07-13] MEDS: prednisoLONE ACETATE 1% OPHTH DROPS 5 ML BTL RIGHT EYE SCH ×2 (08:04→13:06)
[2017-07-13] MEDS: GATIFLOXACIN 0.5% RIGHT EYE SCH ×2 (08:04→13:05)
[2017-07-13] MEDS: HOMATROPINE HBR RIGHT EYE SCH (08:04)
[2017-07-13] MEDS: OPTH RIGHT EYE SCH (08:04)
[2017-07-13 09:15] LABS: Calcium 8.9 mg/dL (8.4-10.2); Potassium 4.5 mmol/L (3.5-5.1)
--- NOTE | 2017-07-13 11:33 | P.PN ---
Subjective Progress Note Date: 07/13/17 Principal diagnosis: This is a 86-year-old ESRD patient who came in because of nausea vomiting. He was dialyzed yesterday. Continues to have some nausea but no vomiting. Appetite is poor complains of abdominal pain and wants some more stronger medication than the [place] that he is on. No fever chills no shortness of breath. Is known with type 1 diabetes and GERD gastroparesis Most recent echocardiogram was performed 10/2015 revealed preserved left ventricular systolic function with ejection fraction 55-60%, mild concentric left ventricular hypertrophy, mild pulmonary hypertension, mild tricuspid regurgitation, mild mitral regurgitation, and mildly dilated left atrium Objective - Vital Signs Vital signs: Vital Signs Temp 97.8 F 07/13/17 07:00 Pulse 79 07/13/17 07:00 Resp 16 07/13/17 07:00 BP 134/75 07/13/17 07:00 Pulse Ox 95 07/13/17 07:00 Intake & Output 07/12/17 07/13/17 07/13/17 18:59 06:59 18:59 Intake Total 550 Output Total 0 Balance 550 Intake: Oral 550 Output: Urine 0 Other: Voiding Method Toilet Toilet Urinal Urinal # Voids 1 0 0 # Bowel Movements 1 Examination is awake alert oriented. HEENT exam no JVP neck is supple no facial asymmetry Lungs are clear to auscultation percussion good air entry bilaterally. Heart sounds are unremarkable no murmur rub gallop. Abdomen soft nontender nondistended Extremity exam was mild edema Neurologically awake alert oriented - Labs CBC & Chem 7: 07/12/17 05:59 07/13/17 08:33 Labs: Abnormal Lab Results - Last 24 Hours (Table) 07/12/17 07/12/17 07/13/17 Range/Units 11:59 20:39 08:33 Chloride 96 L (98-107) mmol/L BUN 39 H (9-20) mg/dL Creatinine 7.15 H* (0.66-1.25) mg/dL Glucose 111 H (74-99) mg/dL POC Glucose (mg/dL) 122 H 112 H (75-99) mg/dL Assessment and Plan Assessment: Impression. 1. ESRD on dialysis, with history of noncompliance admitted with nausea vomiting. Somewhat improved. 2. Diabetes mellitus uncontrolled possibly. 3. History of GERD and gastroparesis. Recommendation. Maintain current medication. Next dialysis on Saturday as he is refusing dialysis today.
[2017-07-13 11:54] LABS: Glucose,Whole Blood 117 mg/dL (75-99)
[2017-07-13 16:03] VITALS: BP 133/77; PULSE 83; TEMP 97.9
--- NOTE | 2017-07-13 20:45 | DS ---
DISCHARGE SUMMARY DATE OF ADMISSION: 07/10/17. DATE OF DISCHARGE: 07/13/17. FINAL DIAGNOSES: 1. Acute abdominal pain from flare-up of acute on chronic gastroparesis secondary to autonomic dysfunction from chronic diabetes. 2. End-stage kidney disease on hemodialysis, noncompliant. 3. Hypertensive urgency present on admission. 4. Gastroesophageal reflux disease. 5. Chronic esophagitis. 6. Autonomic dysfunction long-standing diabetes. 7. Obesity; BMI 35.5. 8. Bilateral retinal detachment with decreased eyesight. HOSPITAL COURSE: This patient remains to be noncompliant with his dialysis. abdominal pain, uncontrolled blood pressure. Medications were adjusted. Blood pressure is better controlled by the time of discharge. Was dialyzed here. Prognosis is not good. I did speak to Dr. Ho. The patient hardly keeps his appointment. PHYSICAL EXAMINATION: On exam abdomen soft, nontender, poor eyesight. Blood pressure today is 133/77. DISCHARGE MEDICATIONS: 1. Lopressor 100 mg p.o. b.i.d. 2. Lispro 4 units a.c. subcu a.c. t.i.d. 3. Potassium 20 mEq a day. 4. Vitamin D2 50,000 units every 7 days. 5. Zofran 4 mg p.o. p.r.n. 6. Lasix 60 mg a day. 7. Antimony 5 1 tab p.o. t.i.d. p.r.n. 8. Alphagan 0.2% 1 drop to right eye b.i.d. 9. PhosLo 667 mg p.o. t.i.d. 10.Szymaxid 1 drop to right eye q.i.d. 11. 1 drop right eye b.i.d. 12.Lantus 18 units subcu q.h.s. 13.Zestril 20 mg b.i.d. 14.Maalox 50 mL p.o. b.i.d. p.r.n. 15.Reglan 5 mg p.o. t.i.d. 16.Zantac 150 mg p.o. q.h.s. 17.Norvasc 10 mg p.o. daily. 18.Hydralazine 25 mg p.o. t.i.d. 19.Prednisone Forte 1% 1 drop to right eye q.i.d. 20.Catapres 0.1 mg p.o. t.i.d. The patient to follow with Dr. Bailey in 1 week. Patient to keep his hemodialysis as scheduled. BMP with next hemodialysis. Copy to Dr. Bailey. MMBEL / DESIN: [id number] /
--- NOTE | 2017-07-18 10:05 | CDI ---
Last Revision, May 2017 Documentation Clarification Form Date: 07/18/2017 9:57:00 AM From: Swetha Eagle Admit Date: 07/11/2017 2:09:00 AM Patient Name: Sanjeev Black Visit Number: [id number] Discharge Date: ATTENTION: The Clinical Documentation Specialists (CDI) and [facility] Coding Staff appreciate your assistance in clarifying documentation. Please respond to the clarification below the line at the bottom and electronically sign. The CDI & [facility] Coding staff will review the response and follow-up if needed. Please note: Queries are made part of the Legal Health Record. If you have any questions, please contact the author of this message via ITS. Dr. Kyle Clancy The patient has diabetes, both type 1 and type 2 are documented in the chart. History/Risk Factors: ESRD on hemodialysis, gastroparesis, obesity, neuropathy Clinical Indicators: patient is on HumaLOG 4 units and Lantus 18 units In order to capture the severity of Illness and necessary documentation specificity, please clarify: DM Type 1 DM Type 2 Please continue to document in your progress notes and discharge summary in order to capture severity of illness and risk of mortality. Include clinical findings that support your diagnosis. ____Diabetes Melllitus type 1 MTDD
== END 2017-07-13 16:38 | disposition home or self-care (01) | DRG 73 ==
LOC: EC 21:54 → 4MS4W 07-11 02:09
PROVIDERS: ADMIT Hospitalist; ATTEND Hospitalist
PROC: 5A1D70Z Performance of Urinary Filtration, Intermittent, Less than 6 Hours Per Day (ICD-10-PCS; 2017-07-11)
PROC: 02HV33Z Insertion of Infusion Device into Superior Vena Cava, Percutaneous Approach (ICD-10-PCS; principal; 2017-07-11 10:15)
PROC: B518ZZA Fluoroscopy of Superior Vena Cava, Guidance (ICD-10-PCS; 2017-07-11 10:15)
PROC: B54MZZA Ultrasonography of Right Upper Extremity Veins, Guidance (ICD-10-PCS; 2017-07-11 10:15)
DX: E10.43 Type 1 diabetes mellitus with diabetic autonomic (poly)neuropathy (principal); N18.6 End stage renal disease; I13.2 Hypertensive heart and chronic kidney disease with heart failure and with stage 5 chronic kidney disease, or end stage renal disease; E10.22 Type 1 diabetes mellitus with diabetic chronic kidney disease; I08.1 Rheumatic disorders of both mitral and tricuspid valves; E10.65 Type 1 diabetes mellitus with hyperglycemia; H33.23 Serous retinal detachment, bilateral; K31.84 Gastroparesis; K21.0 Gastro-esophageal reflux disease with esophagitis; E66.9 Obesity, unspecified; F32.9 Major depressive disorder, single episode, unspecified; I16.0 Hypertensive urgency; F41.9 Anxiety disorder, unspecified; J45.909 Unspecified asthma, uncomplicated; I50.9 Heart failure, unspecified; F17.200 Nicotine dependence, unspecified, uncomplicated; F90.9 Attention-deficit hyperactivity disorder, unspecified type; Z90.49 Acquired absence of other specified parts of digestive tract; Z90.89 Acquired absence of other organs; Z83.3 Family history of diabetes mellitus; Z79.899 Other long term (current) drug therapy; Z79.4 Long term (current) use of insulin; Z91.15 Patient's noncompliance with renal dialysis; Z87.19 Personal history of other diseases of the digestive system; Z86.14 Personal history of Methicillin resistant Staphylococcus aureus infection; Z99.2 Dependence on renal dialysis; Z79.891 Long term (current) use of opiate analgesic; Z68.35 Body mass index [BMI] 35.0-35.9, adult; Z86.69 Personal history of other diseases of the nervous system and sense organs; Z79.2 Long term (current) use of antibiotics
CPT/HCPCS: 36415; 36569; 74018; 76937; 77001; 80048; 80053; 82009; 82150; 83690; 85025; 90935; 93005; 96361; 96372; 96374; 99285

== ENCOUNTER 2017-07-23 | Emergency (ER) | payer OTHER ==
[2017-07-23 00:19] VITALS: RESP 16
[2017-07-23] MEDS ORDERED: HYDROmorphone 2 MG/ML 1 ML SYRINGE IVP STA (02:23)
--- NOTE | 2017-07-23 03:20 | US ---
EXAM: US Scrotum CLINICAL HISTORY: Reason: Pain TECHNIQUE: Real-time ultrasound of the scrotum with color Doppler and image documentation. COMPARISON: 04/21/17 FINDINGS: Right testicle: 2.3 x 2.8 x 2.8 cm. No intratesticular mass. Arterial and venous waveforms were demonstrated by duplex imaging. Left testicle: 2.3 x 2.9 x 2.5 cm. No intratesticular mass. Arterial and venous waveforms were demonstrated by duplex imaging. Epididymides: Right epididymal head is 6 x 8 x 5 mm with normal appearance. Left epididymal head was not seen.. Scrotum: Diffuse scrotal wall thickening noted no evidence of hydrocele. IMPRESSION: No evidence of torsion or intratesticular mass. Diffuse scrotal wall swelling similar to previous exam which may have inflammatory or infectious etiology. Correlate clinically.
[2017-07-23] MEDS ORDERED: HYDROmorphone 0.5 MG/0.5 ML SYRINGE IVP STA (03:50)
--- NOTE | 2017-07-23 03:50 | ED ---
General Adult HPI - General Chief complaint: Urogenital Stated complaint: Male Time Seen by Provider: 07/23/17 02:05 Source: patient Mode of arrival: wheelchair Limitations: no limitations - History of Present Illness Initial comments: 26 year-old male patient with history of chronic abdominal pain, gastroparesis, end-stage renal disease and diabetes presents to the emergency department today for complaints of scrotal pain and swelling. Patient states he has had this numerous times in the past and is usually related to him needing dialysis. Patient states that symptoms started early this morning. He reports that he did undergo dialysis earlier today. He states that this did not improve his pain or swelling. He states that he is unable to tolerated home any longer. He he does still produce small amounts of urine, states that when he does urinate he does not have any difficulty with this. States that the scrotum is tender. Denies any fever or chills. Patient denies any recent rash, shortness breath, chest pain, abdominal pain, nausea, vomiting, diarrhea, constipation, back pain, numbness, tingling, dizziness, weakness, hematuria, dysuria, urinary urgency, urinary frequency, headache, visual changes, or any other complaints. - Related Data Home Medications Medication Instructions Recorded Confirmed INSULIN LISPRO (HumaLOG) [humaLOG] 4 units SQ AC-TID 10/16/16 07/10/17 Potassium Chloride ER [K-Dur 20] 20 meq PO DAILY 10/20/16 07/10/17 Ergocalciferol (Vitamin D2) 50,000 unit PO Q7D 10/26/16 07/10/17 [Vitamin D2] Furosemide [Lasix] 60 mg PO DAILY 07/10/17 07/10/17 HYDROcodone/APAP 5-325MG [[place] 1 tab PO TID PRN 07/10/17 07/10/17 5-325] Brimonidine Tartrate [Alphagan P 1 drop RIGHT EYE BID 07/11/17 07/11/17 0.2% Ophth Soln] Calcium Acetate [PhosLo] 667 mg PO TID 07/11/17 07/11/17 Gatifloxacin [Zymaxid Ophth Soln] 1 drop RIGHT EYE QID 07/11/17 07/11/17 Homatropine HBr [Homatropine 1 drop RIGHT EYE BID 07/11/17 07/11/17 Hydrobromide] Insulin Glargine [Lantus] 18 units SQ HS 07/11/17 07/11/17 Lisinopril [Zestril] 20 mg PO BID 07/11/17 07/11/17 Mag Hydrox/Al Hydrox/Simeth 15 ml PO BID PRN 07/11/17 07/11/17 [Maalox] Metoclopramide HCl [Reglan] 5 mg PO TID-W/MEALS 07/11/17 07/11/17 Ranitidine HCl [Zantac] 150 mg PO HS 07/11/17 07/11/17 amLODIPine [Norvasc] 10 mg PO DAILY 07/11/17 07/11/17 hydrALAZINE HCL 25 mg PO TID 07/11/17 07/11/17 prednisoLONE ACETATE 1% OPHTH 1 drop RIGHT EYE QID 07/11/17 07/11/17 [Pred Forte 1%] Previous Rx's Medication Instructions Recorded Metoprolol Tartrate [Lopressor] 100 mg PO BID #60 tab 07/16/15 Ondansetron [Zofran] 4 mg PO Q8HR PRN #10 05/09/17 cloNIDine HCL [Catapres] 0.1 mg PO TID #90 tab 07/13/17 Allergies Allergy/AdvReac Type Severity Reaction Status Date / Time No Known Allergies Allergy Verified 07/23/17 00:19 Review of Systems ROS Statement: Those systems with pertinent positive or pertinent negative responses have been documented in the HPI. ROS Other: All systems not noted in ROS Statement are negative. Past Medical History Past Medical History: Asthma, Heart Failure, Diabetes Mellitus, GERD/Reflux, Hypertension, Osteoarthritis (OA), Renal Disease Additional Past Medical History / Comment(s): IDDM type I, GASTROPARESIS, gastritis, esophagitis,cyclic vomiting syndrome, DKA episodes, hiatal hernia, as child had seizure r/t high fever, pancreatits(idiopathic), chronic kidney disease stage III-hemodialysis //Saturday, L leg neuropathy, migraines. dialysis CHF History of Any Multi-Drug Resistant Organisms: MRSA Date of last positivie culture/infection: MDRO Source:: CHIN/ Rt leg Past Surgical History: Cholecystectomy, Orthopedic Surgery, Tonsillectomy Additional Past Surgical History / Comment(s): R upper chest hemodialysis catheter, PICC line, LEFT ELBOW pinned, egd's w/ bx's last done 05-30-16.12-07-16 picc line exchange. Past Anesthesia/Blood Transfusion Reactions: No Reported Reaction Past Psychological History: ADD/ADHD, Anxiety, Depression Smoking Status: Former smoker Past Alcohol Use History: None Reported Past Drug Use History: None Reported - Past Family History Mother Family Medical History: Diabetes Mellitus Additional Family Medical History / Comment(s): heart problems-(pt not sure what they were) Father Family Medical History: Diabetes Mellitus General Exam Limitations: no limitations General appearance: alert, in no apparent distress, other (This is a well- developed, well-nourished adult male patient in no acute distress. Vital signs upon presentation are temperature 98.7F, pulse 97, respirations 16, blood pressure 159/115, pulse ox 100% on room air.) Eye exam: Present: normal appearance, PERRL, EOMI. Absent: scleral icterus, conjunctival injection, periorbital swelling ENT exam: Present: normal exam, normal oropharynx, mucous membranes moist Respiratory exam: Present: normal lung sounds bilaterally. Absent: respiratory distress, wheezes, rales, rhonchi, stridor Cardiovascular Exam: Present: regular rate, normal rhythm, normal heart sounds. Absent: systolic murmur, diastolic murmur, rubs, gallop, clicks GI/Abdominal exam: Present: soft, distended, normal bowel sounds. Absent: tenderness, guarding, rebound, rigid exam: Present: testicular tenderness (Bilateral), scrotal swelling, other ( Stephen Wray RN in to manager of enterprise for scrotal exam). Absent: normal inspection , urethral discharge Neurological exam: Present: alert, oriented X3, CN II-XII intact Psychiatric exam: Present: normal affect, normal mood Skin exam: Present: warm, dry, intact, normal color. Absent: rash Course Vital Signs 07/23/17 07/23/17 00:16 04:36 Temperature 98.7 F 98.0 F Pulse Rate 97 73 Respiratory 16 16 Rate Blood Pressure 159/115 148/80 O2 Sat by Pulse 100 98 Oximetry Medical Decision Making - Medical Decision Making 26 year-old male patient presents to the emergency department today for complaints of scrotal pain and swelling. Physical examination did reveal scrotal swelling, and bilateral scrotal tenderness. No drainage from the urethra. No redness. No inguinal lymphadenopathy noted. Patient has been here for this numerous times in the past however did perform ultrasound to rule out torsion. Ultrasound did show scrotal wall thickening which was consistent with previous exams. Patient was given pain medication previous feeling mildly improved at time of discharge. He is instructed to follow-up with urology and his primary care physician for further evaluation. Return parameters discussed. He verbalizes understanding and agrees with this plan. - Radiology Data Radiology results: report reviewed, image reviewed Ultrasound of the scrotum with color Doppler was performed, report was reviewed in its entirety, impression by Dr. Devlin shows no evidence of torsion or intratesticular mass. Diffuse scrotal wall swelling similar to previous exam which may have inflammatory or infectious etiology. Correlate clinically. Disposition Clinical Impression: Scrotal swelling Disposition: HOME SELF-CARE Condition: Good Instructions: Edema (ED), Scrotal Pain (ED) Additional Instructions: Follow-up with urology and your dog groomer for further evaluation. Take her home pain medications as directed. Return here immediately for any new, worsening, or concerning symptoms. Referrals: Myron Bailey DO [Primary Care Provider] - 1-2 days Time of Disposition: 03:50
[2017-07-23 04:37] VITALS: BP 148/80; PULSE 73; TEMP 98
== END 2017-07-23 04:37 | disposition home or self-care (01) ==
LOC: EC
DX: N50.89 Other specified disorders of the male genital organs (principal); E10.22 Type 1 diabetes mellitus with diabetic chronic kidney disease; I13.0 Hypertensive heart and chronic kidney disease with heart failure and stage 1 through stage 4 chronic kidney disease, or unspecified chronic kidney disease; I50.9 Heart failure, unspecified; N18.3 Chronic kidney disease, stage 3 (moderate); K21.9 Gastro-esophageal reflux disease without esophagitis; F32.9 Major depressive disorder, single episode, unspecified; E10.43 Type 1 diabetes mellitus with diabetic autonomic (poly)neuropathy; K31.84 Gastroparesis; Z86.14 Personal history of Methicillin resistant Staphylococcus aureus infection; Z87.891 Personal history of nicotine dependence; Z99.2 Dependence on renal dialysis; Z79.4 Long term (current) use of insulin; Z79.899 Other long term (current) drug therapy
CPT/HCPCS: 93975; 76870; 99284; 96374; 96376; J1170 ×2

== ENCOUNTER 2017-11-18 12:24 | Day surgery (SDC) | payer OTHER ==
[2017-11-18 13:27] LABS: Mean Platelet Volume 7.6; Platelet Count 255 k/uL (150-450)
[2017-11-18 13:28] VITALS: RESP 18; TEMP 97.9
[2017-11-18] MEDS ORDERED: ALPRAZolam 0.5 MG TAB PO STA (13:30)
[2017-11-18 13:31] LABS: INR 1.3 (<1.2); Prothrombin Time 12.1 sec (9.0-12.0)
--- NOTE | 2017-11-18 16:07 | US ---
EXAMINATION TYPE: US paracentesis abd w/image DATE OF EXAM: 11/18/2017 COMPARISON: NONE HISTORY: Ascites. PROCEDURE: Maximal barrier technique was utilized. The skin overlying a suitable pocket of fluid was localized with ultrasound and the overlying skin was prepped and draped. Ultrasound was utilized with sterile technique. Lidocaine was used for local anesthesia and a skin kiya made with a scalpel. Catheter was advanced under direct ultrasound guidance into a suitable pocket of fluid and approximately 10.2 lite rs of serous fluid were removed. Catheter was withdrawn and hemostasis achieved. There is no immedi ate complication; the patient is discharged in stable condition. IMPRESSION: STATUS POST ULTRASOUND GUIDED PARACENTESIS FOR PALLIATION OF ASCITES. THIS PROCEDURE WA S PERFORMED BY THE UNDERSIGNED.
[2017-11-18 16:08] VITALS: BP 143/87; PULSE 80
== END 2017-11-18 16:10 | disposition home or self-care (01) ==
LOC: RADPROMAIN 12:24
PROVIDERS: ATTEND Internal Medicine
DX: R18.8 Other ascites (principal)
CPT/HCPCS: 36415; 49083; 82565; 82947; 85049; 85610

== ENCOUNTER 2017-12-04 11:00 | Emergency (ER) | payer OTHER ==
[2017-12-04 11:06] VITALS: RESP 18
[2017-12-04] MEDS ORDERED: MORPHINE SULFATE 2 MG/ML SYRINGE IM STA (11:36)
--- NOTE | 2017-12-04 11:41 | ED ---
General Adult HPI - General Chief complaint: Extremity Problem,Nontraumatic Stated complaint: Thigh pain Time Seen by Provider: 12/04/17 11:27 Source: patient, RN notes reviewed Mode of arrival: wheelchair Limitations: no limitations - History of Present Illness Initial comments: Patient 27-year-old male presents to the emergency room today with a chief complaint of painful right side. Patient denies any injury or trauma. States he began feeling pain roughly 1 week ago. He states feels like he pulled a muscle. He does admit that it's worse with movements. He states he does take Percocet at home for pain but has not helped at all with this pain. Patient denies any other complaints. He does admit to a history of a blood clot. He states he is not on any blood thinners. - Related Data Home Medications Medication Instructions Recorded Confirmed INSULIN LISPRO (HumaLOG) [humaLOG] 4 units SQ AC-TID 10/16/16 12/04/17 Furosemide [Lasix] 80 mg PO BID 07/10/17 12/04/17 HYDROcodone/APAP 5-325MG [[place] 1 tab PO TID PRN 07/10/17 11/13/17 5-325] Brimonidine Tartrate [Alphagan P 1 drop RIGHT EYE BID 07/11/17 11/13/17 0.2% Ophth Soln] Calcium Acetate [PhosLo] 667 mg PO TID 07/11/17 11/13/17 Gatifloxacin [Zymaxid Ophth Soln] 1 drop RIGHT EYE QID 07/11/17 11/13/17 Homatropine HBr [Homatropine 1 drop RIGHT EYE BID 07/11/17 11/13/17 Hydrobromide] Insulin Glargine [Lantus] 18 units SQ HS 07/11/17 12/04/17 Mag Hydrox/Al Hydrox/Simeth 15 ml PO BID PRN 07/11/17 11/13/17 [Maalox] Metoclopramide HCl [Reglan] 5 mg PO QID PRN 07/11/17 12/04/17 amLODIPine [Norvasc] 10 mg PO DAILY 07/11/17 12/04/17 Apixaban [Eliquis] 5 mg PO BID 11/13/17 12/04/17 Gabapentin [Neurontin] 100 mg PO TID 12/04/17 12/04/17 Previous Rx's Medication Instructions Recorded Metoprolol Tartrate [Lopressor] 100 mg PO BID #60 tab 07/16/15 cloNIDine HCL [Catapres] 0.1 mg PO TID #90 tab 07/13/17 Cyclobenzaprine [Flexeril] 10 mg PO TID #20 tab 12/04/17 Allergies Allergy/AdvReac Type Severity Reaction Status Date / Time No Known Allergies Allergy Verified 12/04/17 11:42 Review of Systems ROS Statement: Those systems with pertinent positive or pertinent negative responses have been documented in the HPI. ROS Other: All systems not noted in ROS Statement are negative. Past Medical History Past Medical History: Asthma, Heart Failure, Diabetes Mellitus, GERD/Reflux, Hypertension, Osteoarthritis (OA), Renal Disease Additional Past Medical History / Comment(s): IDDM type I, GASTROPARESIS, gastritis, esophagitis,cyclic vomiting syndrome, DKA episodes, hiatal hernia, as child had seizure r/t high fever, pancreatits(idiopathic), chronic kidney disease stage III-hemodialysis //Saturday, L leg neuropathy, migraines. dialysis CHF History of Any Multi-Drug Resistant Organisms: MRSA Date of last positivie culture/infection: MDRO Source:: CHIN/ Rt leg Past Surgical History: Cholecystectomy, Orthopedic Surgery, Tonsillectomy Additional Past Surgical History / Comment(s): R upper chest hemodialysis catheter, PICC line, LEFT ELBOW pinned, egd's w/ bx's last done 05-30-16.12-07-16 picc line removed Past Anesthesia/Blood Transfusion Reactions: No Reported Reaction Past Psychological History: ADD/ADHD, Anxiety, Depression Smoking Status: Current every day smoker Past Alcohol Use History: None Reported Past Drug Use History: Marijuana - Past Family History Mother Family Medical History: Diabetes Mellitus Additional Family Medical History / Comment(s): heart problems-(pt not sure what they were) Father Family Medical History: Diabetes Mellitus General Exam - General Exam Comments Initial Comments: General: The patient is awake and alert, in no distress, and does not appear acutely ill. Neck: The neck is supple, there is no tenderness or JVD. Cardiovascular: There is a regular rate and rhythm. No murmur, rub or gallop is appreciated. Respiratory: Lungs are clear to auscultation, respirations are non-labored, breath sounds are equal. No wheezes, stridor, rales, or rhonchi. Musculoskeletal: Normal appearance of the right leg and no obvious deformity. Shows full range of motion. No bony tenderness on exam. Tender palpation posterior medial aspect of the right thigh. Neurological: A&O x 3. CN II-XII intact, There are no obvious motor or sensory deficits. Coordination appears grossly intact. Speech is normal. Skin: Skin is warm and dry and no rashes or lesions are noted. Psychiatric: Normal mood and affect. Limitations: no limitations Course Vital Signs 12/04/17 11:02 Temperature 98.7 F Pulse Rate 66 Respiratory 18 Rate Blood Pressure 157/104 O2 Sat by Pulse 96 Oximetry Medical Decision Making - Medical Decision Making Patient reexamined this time shows no signs of distress. Patient's ultrasound is negative for any evidence of DVT. Patient does admit to some improvement of the pain after pain medication. Patient does admit that pain feels more like a muscle strain. Patient will be discharged home with a muscle relaxer type pain. A advised may make him drowsy. Disposition Clinical Impression: Muscle strain Disposition: HOME SELF-CARE Condition: Good Instructions: Muscle Strain (ED) Additional Instructions: Please use medication as discussed. Please follow-up with family doctor in the next 2 days of symptoms have not improved. Please return to emergency room if the symptoms increase or worsen or for any other concerns. Prescriptions: Cyclobenzaprine [Flexeril] 10 mg PO TID #20 tab Is patient prescribed a controlled substance at d/c from ED?: No Referrals: Myron Bailey DO [Primary Care Provider] - 1-2 days Time of Disposition: 13:17
--- NOTE | 2017-12-04 12:52 | US ---
EXAMINATION TYPE: US venous doppler duplex LE LT DATE OF EXAM: 12/04/2017 12:39 PM COMPARISON: NONE CLINICAL HISTORY: Pain. Pt states right thigh pain SIDE PERFORMED: Right TECHNIQUE: The lower extremity deep venous system is examined utilizing real time linear array sonog aron with graded compression, doppler sonography and color-flow sonography. VESSELS IMAGED: External Iliac Vein (EIV) Common Femoral Vein Deep Femoral Vein Greater Saphenous Vein * Femoral Vein Popliteal Vein Small Saphenous Vein * Proximal Calf Veins (* superficial vessels) Grayscale, color doppler, spectral doppler imaging performed of the deep veins of the right lower ext remity. There is normal flow, compressibility, vascular waveforms. Right Leg: Negative for DVT IMPRESSION: No sonographic evidence of deep venous thrombosis within the right lower extremity.
[2017-12-04 13:47] VITALS: BP 189/93; PULSE 89; TEMP 97.7
== END 2017-12-04 13:49 | disposition home or self-care (01) ==
LOC: EC 11:00
DX: S76.911A Strain of unspecified muscles, fascia and tendons at thigh level, right thigh, initial encounter (principal); I13.0 Hypertensive heart and chronic kidney disease with heart failure and stage 1 through stage 4 chronic kidney disease, or unspecified chronic kidney disease; N18.3 Chronic kidney disease, stage 3 (moderate); I50.9 Heart failure, unspecified; G40.909 Epilepsy, unspecified, not intractable, without status epilepticus; E10.22 Type 1 diabetes mellitus with diabetic chronic kidney disease; E10.40 Type 1 diabetes mellitus with diabetic neuropathy, unspecified; F17.200 Nicotine dependence, unspecified, uncomplicated; Z99.2 Dependence on renal dialysis; Z86.718 Personal history of other venous thrombosis and embolism; Z86.14 Personal history of Methicillin resistant Staphylococcus aureus infection; Z95.818 Presence of other cardiac implants and grafts; Z79.4 Long term (current) use of insulin; Z79.01 Long term (current) use of anticoagulants; Z79.899 Other long term (current) drug therapy
CPT/HCPCS: 93971; 99283; 96372; J2270

== ENCOUNTER → 2017-12-19 | Outpatient (CLI) | payer OTHER ==
--- NOTE | 2017-12-19 09:54 | US ---
EXAMINATION TYPE: US abdomen complete DATE OF EXAM: 12/19/2017 COMPARISON: 2016 CLINICAL HISTORY: Abdominal distension R14.0. gb removed chronic kidney disease . pt on dialysis ascites =9.6 +8.33+8.2 +8.6=34.7cm EXAM MEASUREMENTS: Liver Length: 16.3 cm Gallbladder Wall: Surgically absent CBD: 0.3 cm Spleen: 10.5 cm Right Kidney: 9.3x4.3x4.7 cm Left Kidney: 9.2x4.8x3.7 cm Pancreas: Obscured by bowel gas Liver: wnl Gallbladder: Surgically absent Evidence for sonographic Leonardo's sign: No CBD: wnl Spleen: wnl Right Kidney: wnl Left Kidney: wnl Upper IVC: wnl Abd Aorta: wnl IMPRESSION: 1. Ascites.
== END | disposition home or self-care (01) ==
LOC: RADUSWWP 09:07
PROVIDERS: ATTEND Internal Medicine Nephrology
DX: R18.8 Other ascites (principal)
CPT/HCPCS: 76700

== ENCOUNTER 2018-01-26 13:14 | Inpatient (IN) | payer OTHER ==
[2018-01-26] MEDS ORDERED: FAMOTIDINE 20 MG/2 ML VIAL IV STA (13:24)
[2018-01-26] MEDS ORDERED: METOCLOPRAMIDE 5 MG/ML 2 ML VIAL IVP STA (13:24)
--- NOTE | 2018-01-26 13:27 | ED ---
General Adult HPI - General Stated complaint: Abd Pain Time Seen by Provider: 01/26/18 13:15 Source: patient, EMS, RN notes reviewed Mode of arrival: EMS Limitations: no limitations - History of Present Illness Initial comments: Patient is a pleasant 27-year-old male presenting to the emergency department with abdominal distention. Symptoms have progressed with the past several days. Patient also has some discomfort and swelling of his legs. Patient does have history of previous ascites and paracentesis. Last was several weeks ago and they drained approximately 12 L. Patient believes he has a secondary to his dialysis. Patient denies liver disease. Patient has been vomiting however this is chronic for him. Patient has abdominal discomfort that is also chronic for him. No fevers. - Related Data Home Medications Medication Instructions Recorded Confirmed INSULIN LISPRO (HumaLOG) [humaLOG] 4 units SQ AC-TID 10/16/16 12/04/17 Furosemide [Lasix] 80 mg PO BID 07/10/17 12/04/17 HYDROcodone/APAP 5-325MG [[place] 1 tab PO TID PRN 07/10/17 11/13/17 5-325] Brimonidine Tartrate [Alphagan P 1 drop RIGHT EYE BID 07/11/17 11/13/17 0.2% Ophth Soln] Calcium Acetate [PhosLo] 667 mg PO TID 07/11/17 11/13/17 Gatifloxacin [Zymaxid Ophth Soln] 1 drop RIGHT EYE QID 07/11/17 11/13/17 Homatropine HBr [Homatropine 1 drop RIGHT EYE BID 07/11/17 11/13/17 Hydrobromide] Insulin Glargine [Lantus] 18 units SQ HS 07/11/17 12/04/17 Mag Hydrox/Al Hydrox/Simeth 15 ml PO BID PRN 07/11/17 11/13/17 [Maalox] Metoclopramide HCl [Reglan] 5 mg PO QID PRN 07/11/17 12/04/17 amLODIPine [Norvasc] 10 mg PO DAILY 07/11/17 12/04/17 Apixaban [Eliquis] 5 mg PO BID 11/13/17 12/04/17 Gabapentin [Neurontin] 100 mg PO TID 12/04/17 12/04/17 Previous Rx's Medication Instructions Recorded Metoprolol Tartrate [Lopressor] 100 mg PO BID #60 tab 07/16/15 cloNIDine HCL [Catapres] 0.1 mg PO TID #90 tab 07/13/17 Cyclobenzaprine [Flexeril] 10 mg PO TID #20 tab 12/04/17 Allergies Allergy/AdvReac Type Severity Reaction Status Date / Time No Known Allergies Allergy Verified 12/04/17 11:42 Review of Systems ROS Statement: Those systems with pertinent positive or pertinent negative responses have been documented in the HPI. ROS Other: All systems not noted in ROS Statement are negative. Constitutional: Denies: fever Eyes: Denies: eye pain ENT: Denies: ear pain Respiratory: Denies: cough Cardiovascular: Denies: chest pain Endocrine: Reports: fatigue Gastrointestinal: Reports: abdominal pain, nausea, vomiting Genitourinary: Denies: dysuria Skin: Denies: rash Neurological: Denies: headache Past Medical History Past Medical History: Asthma, Heart Failure, Diabetes Mellitus, GERD/Reflux, Hypertension, Osteoarthritis (OA), Renal Disease Additional Past Medical History / Comment(s): IDDM type I, GASTROPARESIS, gastritis, esophagitis,cyclic vomiting syndrome, DKA episodes, hiatal hernia, as child had seizure r/t high fever, pancreatits(idiopathic), chronic kidney disease stage III-hemodialysis //Saturday, L leg neuropathy, migraines. dialysis CHF History of Any Multi-Drug Resistant Organisms: MRSA Date of last positivie culture/infection: MDRO Source:: CHIN/ Rt leg Past Surgical History: Cholecystectomy, Orthopedic Surgery, Tonsillectomy Additional Past Surgical History / Comment(s): R upper chest hemodialysis catheter, PICC line, LEFT ELBOW pinned, egd's w/ bx's last done 05-30-16.12-07-16 picc line removed Past Anesthesia/Blood Transfusion Reactions: No Reported Reaction Past Psychological History: ADD/ADHD, Anxiety, Depression Smoking Status: Current every day smoker Past Alcohol Use History: None Reported Past Drug Use History: Marijuana - Past Family History Mother Family Medical History: Diabetes Mellitus Additional Family Medical History / Comment(s): heart problems-(pt not sure what they were) Father Family Medical History: Diabetes Mellitus General Exam Limitations: no limitations General appearance: alert, in no apparent distress Head exam: Present: atraumatic Eye exam: Present: other (Right eye opacified) ENT exam: Present: mucous membranes dry Neck exam: Present: normal inspection Respiratory exam: Present: normal lung sounds bilaterally Cardiovascular Exam: Present: regular rate, normal rhythm Expanded Peripheral pulses: 2+: Dorsalis Pedis (R), Dorsalis Pedis (L) GI/Abdominal exam: Present: soft, distended, tenderness (Mild diffuse tenderness ), normal bowel sounds. Absent: guarding, rebound, rigid Extremities exam: Present: pedal edema Neurological exam: Present: alert Psychiatric exam: Present: normal affect, normal mood Skin exam: Present: normal color Course Vital Signs 01/26/18 01/26/18 13:16 15:29 Temperature 98.8 F Pulse Rate 86 89 Respiratory 18 18 Rate Blood Pressure 132/86 130/95 O2 Sat by Pulse 92 L 92 L Oximetry Medical Decision Making - Medical Decision Making Patient reevaluated and updated. Case discussed with Dr. english, who will admit for Dr. Bailey. Consult with Dr. Linares. - Lab Data Result diagrams: 01/26/18 15:15 01/26/18 15:15 Lab Results 01/26/18 01/26/18 01/26/18 Range/Units 15:15 15:15 15:15 WBC 8.1 (3.8-10.6) k/uL RBC 4.49 (4.30-5.90) m/uL Hgb 11.4 L (13.0-17.5) gm/dL Hct 38.4 L (39.0-53.0) % MCV 85.5 (80.0-100.0) fL MCH 25.4 (25.0-35.0) pg MCHC 29.7 L (31.0-37.0) g/dL RDW 19.9 H (11.5-15.5) % Plt Count 225 (150-450) k/uL Neutrophils % 87 % Lymphocytes % 6 % Monocytes % 4 % Eosinophils % 1 % Basophils % 0 % Neutrophils # 7.1 (1.3-7.7) k/uL Lymphocytes # 0.5 L (1.0-4.8) k/uL Monocytes # 0.3 (0-1.0) k/uL Eosinophils # 0.1 (0-0.7) k/uL Basophils # 0.0 (0-0.2) k/uL Hypochromasia Moderate Anisocytosis Slight PT 11.6 (9.0-12.0) sec INR 1.2 H (<1.2) APTT 31.6 H (22.0-30.0) sec Sodium 133 L (137-145) mmol/L Potassium 6.1 H (3.5-5.1) mmol/L Chloride 90 L (98-107) mmol/L Carbon Dioxide 18 L (22-30) mmol/L Anion Gap 25 mmol/L BUN 115 H* (9-20) mg/dL Creatinine 15.70 H* (0.66-1.25) mg/dL Est GFR (CKD-EPI)AfAm 4 (>60 ml/min/1.73 sqM) Est GFR (CKD-EPI)NonAf 4 (>60 ml/min/1.73 sqM) Glucose 78 (74-99) mg/dL Calcium 6.8 L (8.4-10.2) mg/dL Total Bilirubin 1.1 (0.2-1.3) mg/dL AST 26 (17-59) U/L ALT 26 (21-72) U/L Alkaline Phosphatase 292 H (38-126) U/L Total Protein 6.8 (6.3-8.2) g/dL Albumin 3.4 L (3.5-5.0) g/dL Amylase 65 (30-110) U/L Lipase <10 L (23-300) U/L - Radiology Data Radiology results: report reviewed (Chest x-ray and abdominal x-rays show no acute findings) Disposition Clinical Impression: Abdominal pain, Ascites Disposition: ADMITTED IP TO THIS HOSP Is patient prescribed a controlled substance at d/c from ED?: No Referrals: Myron Bailey DO [Primary Care Provider] - 1-2 days Decision Time: 16:02
--- NOTE | 2018-01-26 14:31 | XR ---
EXAMINATION TYPE: XR chest 2V DATE OF EXAM: 01/26/2018 COMPARISON: Chest radiograph 08/15/2017 HISTORY: Pleural effusion TECHNIQUE: Frontal and lateral views of the chest are obtained. FINDINGS: Right sided internal jugular vein dual-lumen large-bore central venous catheter projects in similar position. There is no focal air space opacity, pleural effusion, or pneumothorax seen. The cardiac silhouette size is prominent but unchanged in the interval The osseous structures are intact. IMPRESSION: 1. Similar position of large-bore dual-lumen right IJ central line. 2. Similar cardiomegaly. 3. No focal airspace disease, pleural effusion or pneumothorax.
--- NOTE | 2018-01-26 14:32 | XR ---
EXAMINATION TYPE: XR abdomen 2V DATE OF EXAM: 01/26/2018 2:05 PM CLINICAL HISTORY: Abdominal pain and abdominal distention for 4 days TECHNIQUE: Supine and upright images of the abdomen were obtained. COMPARISON: None. FINDINGS: Scattered air-fluid levels are seen within the abdomen, however no differential air-fluid l evels are noted. Small bowel is prominent although nondilated measuring up to 3.0 cm in the low pelvi s. Overall posterior bowel gas is seen in this patient with a large body habitus. Large body habitus partially limits evaluation of the osseous structures and 4 intra-abdominal calcifications. No abnorm al calcifications are noted. Osseous structures are grossly intact. Lung bases are well aerated. IMPRESSION: Slightly limited exam secondary to patient body habitus. However overall there is a nonob structive bowel gas pattern.
[2018-01-26 15:32] LABS: Anisocytosis Slight; Basophils % (A) 0 %; Eosinophils # (A) 0.1 k/uL (0-0.7); Eosinophils % (A) 1 %; HCT 38.4 % (39.0-53.0); HGB 11.4 gm/dL (13.0-17.5); Hypochromasia Moderate; Lymphocytes # (A) 0.5 k/uL (1.0-4.8); Lymphocytes % (A) 6 %; MCH 25.4 pg (25.0-35.0); MCHC 29.7 g/dL (31.0-37.0); MCV 85.5 fL (80.0-100.0); Mean Platelet Volume 7.8; Monocytes # (A) 0.3 k/uL (0-1.0); Monocytes % (A) 4 %; Neutrophils # (A) 7.1 k/uL (1.3-7.7); Neutrophils % (A) 87 %; Platelet Count 225 k/uL (150-450); RBC 4.49 m/uL (4.30-5.90); RDW 19.9 % (11.5-15.5); WBC 8.1 k/uL (3.8-10.6)
[2018-01-26 15:42] LABS: ALT 26 U/L (21-72); AST 26 U/L (17-59); Albumin 3.4 g/dL (3.5-5.0); Alkaline Phosphatase 292 U/L (38-126); Amylase 65 U/L (30-110); Anion Gap 25 mmol/L; Calcium 6.8 mg/dL (8.4-10.2); Carbon Dioxide 18 mmol/L (22-30); Chloride 90 mmol/L (98-107); Glucose 78 mg/dL (74-99); Lipase <10 U/L (23-300); Potassium 6.1 mmol/L (3.5-5.1); Sodium 133 mmol/L (137-145); Total Bilirubin 1.1 mg/dL (0.2-1.3); Total Protein 6.8 g/dL (6.3-8.2)
[2018-01-26 15:50] LABS: INR 1.2 (<1.2); Partial Thromboplastin Time 31.6 sec (22.0-30.0); Prothrombin Time 11.6 sec (9.0-12.0)
[2018-01-26 15:51] LABS: Blood Urea Nitrogen 115 mg/dL (9-20)
[2018-01-26] MEDS ORDERED: NALOXONE 0.4 MG/ML 1 ML VIAL IV PRN (16:02)
[2018-01-26] MEDS ORDERED: ONDANSETRON 4 MG/2 ML VIAL IVP PRN (16:02)
[2018-01-26] MEDS ORDERED: MORPHINE SULFATE 2 MG/ML SYRINGE IVP STA (16:02)
[2018-01-26 17:17] LABS: Glucose,Whole Blood 55 mg/dL (75-99)
[2018-01-26 17:53] LABS: Glucose,Whole Blood 40 mg/dL (75-99)
[2018-01-26 17:53] LABS: Glucose,Whole Blood 53 mg/dL (75-99)
[2018-01-26] MEDS: MORPHINE SULFATE 4 MG/ML SYRINGE IV PRN ×2 (20:16→23:38)
[2018-01-26 20:59] LABS: Glucose,Whole Blood 79 mg/dL (75-99)
[2018-01-26] MEDS: DORZOLAMIDE HCL 2% DROPS 10 ML BTL RIGHT EYE SCH (23:36)
[2018-01-26] MEDS: LATANOPROST 0.005% OPHTH DROPS 2.5 ML BTL RIGHT EYE SCH (23:37)
[2018-01-26] MEDS: TIMOLOL 0.5% OPHTH DROPS 5 ML BTL RIGHT EYE SCH (23:37)
[2018-01-26] MEDS: hydrALAZINE HCL 25 MG TAB PO SCH (23:38)
[2018-01-26] MEDS: GABAPENTIN 100 MG CAP PO SCH (23:38)
[2018-01-26] MEDS: METOPROLOL TARTRATE 50 MG TAB PO SCH (23:38)
[2018-01-26] MEDS: cloNIDine HCL 0.1 MG TAB PO SCH (23:38)
[2018-01-27] MEDS: MORPHINE SULFATE 4 MG/ML SYRINGE IV PRN ×4 (03:51→20:57)
[2018-01-27 06:25] LABS: Glucose,Whole Blood 112 mg/dL (75-99)
[2018-01-27 06:31] LABS: Anisocytosis Moderate; Basophils % (A) 1 %; Eosinophils # (A) 0.1 k/uL (0-0.7); Eosinophils % (A) 2 %; HCT 35.8 % (39.0-53.0); HGB 10.4 gm/dL (13.0-17.5); Hypochromasia Marked; Lymphocytes # (A) 0.7 k/uL (1.0-4.8); Lymphocytes % (A) 11 %; MCH 25.8 pg (25.0-35.0); Monocytes # (A) 0.3 k/uL (0-1.0); Monocytes % (A) 5 %; Neutrophils % (A) 80 %; Platelet Count 219 k/uL (150-450); RBC 4.02 m/uL (4.30-5.90); RDW 20.1 % (11.5-15.5); WBC 6.3 k/uL (3.8-10.6)
[2018-01-27 06:43] LABS: Calcium 6.7 mg/dL (8.4-10.2); Potassium 5.8 mmol/L (3.5-5.1)
[2018-01-27] MEDS: INSULIN ASPART 100 UNIT/ML 1 ML 10 ML VIAL SQ SCH ×4 (07:02→17:44)
[2018-01-27] MEDS: CALCIUM ACETATE 667 MG CAP PO SCH ×3 (07:02→17:44)
[2018-01-27] MEDS: cloNIDine HCL 0.1 MG TAB PO SCH ×3 (08:23→23:10)
[2018-01-27] MEDS: hydrALAZINE HCL 25 MG TAB PO SCH ×3 (08:23→23:11)
[2018-01-27] MEDS: METOPROLOL TARTRATE 50 MG TAB PO SCH ×2 (08:23→23:10)
[2018-01-27] MEDS: amLODIPine 10 MG TAB PO SCH (08:23)
[2018-01-27] MEDS: GABAPENTIN 100 MG CAP PO SCH ×3 (08:32→23:11)
[2018-01-27] MEDS: APIXABAN 5 MG TAB PO SCH ×3 (08:32→23:18)
[2018-01-27] MEDS: oxyCODONE-APAP 7.5-325MG 1 EACH TAB PO PRN ×2 (08:32→23:09)
[2018-01-27] MEDS: TIMOLOL 0.5% OPHTH DROPS 5 ML BTL RIGHT EYE SCH ×2 (08:33→21:01)
[2018-01-27] MEDS: BRIMONIDINE TARTRATE 0.2% DROPS 5 ML BTL RIGHT EYE SCH ×2 (08:33→21:01)
[2018-01-27] MEDS: DORZOLAMIDE HCL 2% DROPS 10 ML BTL RIGHT EYE SCH ×2 (08:33→21:01)
--- NOTE | 2018-01-27 08:34 | P.NPCON ---
History of Present Illness - Reason for Consult end stage renal disease - History of Present Illness Reason for consultation: End-stage renal disease History of present illness: Patient is a 27-year-old male seen in consultation for end-stage renal disease. He is maintained on hemodialysis on a Saturday schedule via right chest permacath. Patient states his last treatment of hemodialysis was on Saturday. Patient has a strong history of noncompliance and misses hemodialysis treatments quite often. Patient also has recurrent episodes of ascites and has undergone 3 paracentesis so far with nearly 10 L removed. Last paracentesis according to the patient was a few weeks ago. He is a long history of insulin dependent diabetes mellitus and again has been quite noncompliant with his treatments. Patient presented to the hospital with generalized pain particularly in his legs. He denies any chest pain or shortness of breath. Patient also has history of diabetic gastroparesis and states his oral intake has been poor the last few days. He has intermittent episodes of nausea and vomiting. States he vomited this morning but attributes it to his medications. No fever or chills. Vital signs are stable. General: The patient appeared well nourished and normally developed. HEENT: Head exam is unremarkable. Neck is without jugular venous distension. LUNGS: Lungs are clear to auscultation and percussion. Breath sounds decreased. HEART: Rate and Rhythm are regular. First and second heart sounds normal. No murmurs, rubs or gallops. ABDOMEN: Bowel sounds present. Mild distention. EXTREMITITES: No clubbing, cyanosis, or edema. Past Medical History Past Medical History: Asthma, Heart Failure, Diabetes Mellitus, GERD/Reflux, Hypertension, Osteoarthritis (OA), Renal Disease Additional Past Medical History / Comment(s): IDDM type I, GASTROPARESIS, gastritis, esophagitis,cyclic vomiting syndrome, DKA episodes, hiatal hernia, as child had seizure r/t high fever, pancreatits(idiopathic), chronic kidney disease stage III-hemodialysis //Saturday, L leg neuropathy, migraines. dialysis CHF History of Any Multi-Drug Resistant Organisms: MRSA Date of last positivie culture/infection: MDRO Source:: CHIN/ Rt leg Past Surgical History: Cholecystectomy, Orthopedic Surgery, Tonsillectomy Additional Past Surgical History / Comment(s): R upper chest hemodialysis catheter, PICC line, LEFT ELBOW pinned, egd's w/ bx's last done 05-30-16.12-07-16 picc line removed Past Anesthesia/Blood Transfusion Reactions: No Reported Reaction Smoking Status: Current every day smoker - Past Family History Mother Family Medical History: Diabetes Mellitus Additional Family Medical History / Comment(s): heart problems-(pt not sure what they were) Father Family Medical History: Diabetes Mellitus Medications and Allergies Home Medications Medication Instructions Recorded Confirmed Type Metoprolol Tartrate [Lopressor] 100 mg PO BID #60 tab 07/16/15 01/26/18 Rx INSULIN LISPRO (HumaLOG) [humaLOG] 4 units SQ AC-TID 10/16/16 01/26/18 History Brimonidine Tartrate [Alphagan P 1 drop RIGHT EYE BID 07/11/17 01/26/18 History 0.2% Ophth Soln] Calcium Acetate [PhosLo] 667 mg PO TID 07/11/17 01/26/18 History amLODIPine [Norvasc] 10 mg PO DAILY 07/11/17 01/26/18 History cloNIDine HCL [Catapres] 0.1 mg PO TID #90 tab 07/13/17 01/26/18 Rx Apixaban [Eliquis] 5 mg PO BID 11/13/17 01/26/18 History Gabapentin [Neurontin] 100 mg PO TID 12/04/17 01/26/18 History Dorzolamide 2% [Trusopt 2%] 1 drops RIGHT EYE BID 01/26/18 01/26/18 History Latanoprost [Xalatan 0.005%] 1 drop RIGHT EYE HS 01/26/18 01/26/18 History Potassium Chloride [Klor-Con 20] 20 meq PO DAILY 01/26/18 01/26/18 History Timolol Maleate [Timolol Maleate 1 applic RIGHT EYE BID 01/26/18 01/26/18 History 0.5% Ophth Gel] hydrALAZINE HCL [Apresoline] 25 mg PO TID 01/26/18 01/26/18 History oxyCODONE-APAP 7.5-325MG [Percocet 1 tab PO Q6HR PRN 01/26/18 01/26/18 History 7.5-325 mg] Allergies Allergy/AdvReac Type Severity Reaction Status Date / Time No Known Allergies Allergy Verified 01/26/18 16:24 Physical Exam Vitals: Vital Signs Temp Pulse Pulse Resp BP BP Pulse Ox 01/27/18 04:00 97.1 F L 83 19 96/66 94 L 01/27/18 00:00 96 16 117/76 93 L 01/26/18 20:00 96.7 F L 95 17 123/82 92 L 01/26/18 17:25 97 F L 88 20 127/94 90 L 01/26/18 16:45 97.6 F 72 18 156/99 93 L 01/26/18 15:29 89 18 130/95 92 L 01/26/18 13:16 98.8 F 86 18 132/86 92 L Intake and Output 01/26/18 01/27/18 01/27/18 22:59 06:59 14:59 Intake Total 730 980 Output Total 0 0 Balance 730 980 Intake: IV 10 20 Invasive Line 1 10 20 Oral 720 960 Output: Urine 0 0 Other: Voiding Method Toilet Toilet # Voids 0 Weight 94 kg Results - Lab Results Most recent lab results Calcium 6.7 mg/dL (8.4-10.2) L 01/27/18 05:41 01/27/18 05:41 01/27/18 05:41 Assessment and Plan Plan: Assessment: 1. End-stage renal disease maintained on hemodialysis on a Saturday schedule via right chest permacath. 2. History of noncompliance with medications and hemodialysis treatments. 3. Hyperkalemia secondary to chronic kidney disease. 4. Insulin-dependent diabetes mellitus. 5. Metabolic acidosis secondary to chronic kidney disease. 6. Chronic kidney disease mineral bone disease maintained on PhosLo. 7. Anemia of chronic kidney disease. Hemoglobin at goal. 8. Ascites status post 3 paracentesis in the past. Patient states last paracentesis was last month and had about 12 L removed. Plan: Hemodialysis today with goal 3-4 L ultrafiltration. Hold antihypertensives for systolic blood pressure less than 120. Check abdominal ultrasound. May require another paracentesis. Check phosphorus level. Discontinue potassium supplementation. Thank you for the consultation. I will continue to follow the patient with you during his hospital stay.
[2018-01-27] MEDS ORDERED: POTASSIUM CHLORIDE ER 20 MEQ TAB.ER PO SCH (09:00)
--- NOTE | 2018-01-27 09:55 | US ---
EXAMINATION TYPE: US abdomen limited DATE OF EXAM: 01/27/2018 COMPARISON: Complete abdominal ultrasound January 18, 2018 CLINICAL HISTORY: ascites. Renal failure. Ascites. Fluid seen in RUQ, RLQ, LUQ and LLQ Moderate to large amount of ascites redemonstrated on images saved. IMPRESSION: As above.
[2018-01-27] MEDS: PANTOPRAZOLE 40 MG/10 ML VIAL IV SCH (10:18)
[2018-01-27 11:40] LABS: Glucose,Whole Blood 97 mg/dL (75-99)
--- NOTE | 2018-01-27 12:07 | HP ---
HISTORY AND PHYSICAL DATE OF SERVICE: 01/26/2018 PRESENTING COMPLAINT: Fluid overloaded. HISTORY OF PRESENTING COMPLAINT: This is a patient I saw yesterday in 650 bed 1. The patient has a rather extensive medical history. Patient's family doctor is Dr. Bailey. Chronic stable medical conditions include esophagitis, depression, hypertension, autonomic dysfunction, gastroparesis. The patient has been on hemodialysis. The patient often times misses his appointments. Even the last appointment he had to leave a bit early. Yesterday patient had a multitude of symptoms. His belly is distended again. Patient actually has had paracentesis, last one being about 3 weeks ago. Patient also complaining of pain in his thighs and also had an episode of nausea, vomiting prior to coming in. Because of all these things put together, patient is admitted. The patient's vision is also affected because of diabetic retinopathy and he has had procedures done on the right eye. Vision is not too good in the left eye. REVIEW OF SYSTEMS: CONSTITUTIONAL: Tired. HEENT: Poor vision. RESPIRATORY: Some shortness of breath CARDIOVASCULAR: None. GASTROINTESTINAL: Abdominal distention, nausea, vomiting as above. GENITOURINARY: None. MUSCULOSKELETAL: None. DERMATOLOGICAL: None. HEMATOLOGIC: None. LYMPHATICS: None. PSYCHIATRY: Some anxiety. NEUROLOGICAL: None. PAST MEDICAL HISTORY: Diabetes, GERD, hypertension, gastroparesis, esophagitis, end-stage kidney disease on hemodialysis, anemia of chronic kidney disease, gastroparesis. PAST SURGICAL HISTORY: Tonsillectomy, cholecystectomy, right upper chest wall hemodialysis catheter, left elbow pinning. PAST PSYCH HISTORY: Past psych history of depression. SOCIAL HISTORY: Patient lives with his parents. Did smoke from 2006 to 2011. No alcohol. FAMILY HISTORY: Sister with diabetes, end-stage kidney disease and from the same. ALLERGIES: None. PHYSICAL EXAMINATION: On examination, vital signs on presentation, temperature 98.8, pulse 86, respirations 18, blood pressure 132/86, pulse ox 92% on room air. GENERAL APPEARANCE: Well built, BMI 32.5, lying in bed, tired appearing. EYES: Some redness on the right conjunctiva. Otherwise, pupils are equal. HENT: External appearance of nose and ears normal. Oral cavity normal. NECK: JVD unable to assess. Mass not palpable. RESPIRATORY: Effort increased. LUNGS: Decreased breath sounds. CARDIOVASCULAR: Heart sounds muffled. Edema present. ABDOMEN: Distended, soft. Liver and spleen not palpable. Dullness to percussion in the flanks. LYMPHATIC: No lymph node palpable in the neck and axillae. PSYCHIATRY: Alert and oriented x3. Mood and affect is normal. NEUROLOGICAL: The patient's vision is greatly diminished. No focal symptoms otherwise. EXTREMITIES: The patient has got induration in both the thighs on the inner aspect which may be more in the dependent aspect. INVESTIGATIONS: White count 8.1, hemoglobin 11.4. Potassium 6.1. BUN 115, creatinine 15.7. Bicarb is 18. Calcium 6.8. Accu-Chek 55. ASSESSMENT: 1. Acute severe fluid overload from incomplete and noncompliant hemodialysis. 2. End-stage kidney disease on hemodialysis. 3. Hyperkalemia due to inadequate hemodialysis from renal failure. 4. Metabolic acidosis from renal failure. 5. Hypoalbuminemia from kidney disease. 6. Diabetes mellitus type 2, uncontrolled with hypoglycemia. 7. Large ascites clinically from inadequate fluid removal. 8. Induration in both the thighs on the medial aspect and dependent portion, this well could be from fluid also need to rule out calciphylaxis. 9. Autonomic dysfunction causing chronic gastroparesis from underlying diabetes and also diabetic retinopathy with poor vision. 10.Anemia secondary to chronic kidney disease. 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 PLAN: Patient is started on clear liquids. Home medications are resumed. The patient will need aggressive hemodialysis. Will talk to Nephrology about the same. The patient was talked to about compliance. MMODL / IJN: [id number] /
--- NOTE | 2018-01-27 13:19 | P.GSCN ---
History of Present Illness Consult date: 01/27/18 Reason for Consult: Abdominal pain History of present illness: Patient states he came to the hospital because of pain in the thigh and groin bilaterally. He says this is related to his abdominal swelling although he states previously his abdomen had been much more distended than this. Patient denies liver disease. He has had at least 3 episodes of therapeutic paracentesis before. He is on hemodialysis. He does have chronic vomiting. Normal bowel movements. Denies abdominal pain currently. Abdominal ultrasound showed ascites. Review of Systems The patient denies any acute changes in vision or hearing, no dysphagia or odynophagia, no chest pain or shortness of breath, no dysuria or hematuria, no headache, no runny nose, no rectal bleeding or melena, no unexplained weight loss Past Medical History Past Medical History: Asthma, Heart Failure, Diabetes Mellitus, GERD/Reflux, Hypertension, Osteoarthritis (OA), Renal Disease Additional Past Medical History / Comment(s): IDDM type I, GASTROPARESIS, gastritis, esophagitis,cyclic vomiting syndrome, DKA episodes, hiatal hernia, as child had seizure r/t high fever, pancreatits(idiopathic), chronic kidney disease stage III-hemodialysis //Saturday, L leg neuropathy, migraines. dialysis CHF History of Any Multi-Drug Resistant Organisms: MRSA Year Discovered:: MDRO Source:: CHIN/ Rt leg Past Surgical History: Cholecystectomy, Orthopedic Surgery, Tonsillectomy Additional Past Surgical History / Comment(s): R upper chest hemodialysis catheter, PICC line, LEFT ELBOW pinned, egd's w/ bx's last done 05-30-16.12-07-16 picc line removed Past Anesthesia/Blood Transfusion Reactions: No Reported Reaction Smoking Status: Current every day smoker - Past Family History Mother Family Medical History: Diabetes Mellitus Additional Family Medical History / Comment(s): heart problems-(pt not sure what they were) Father Family Medical History: Diabetes Mellitus Medications and Allergies Home Medications Medication Instructions Recorded Confirmed Type Metoprolol Tartrate [Lopressor] 100 mg PO BID #60 tab 07/16/15 01/26/18 Rx INSULIN LISPRO (HumaLOG) [humaLOG] 4 units SQ AC-TID 10/16/16 01/26/18 History Brimonidine Tartrate [Alphagan P 1 drop RIGHT EYE BID 07/11/17 01/26/18 History 0.2% Ophth Soln] Calcium Acetate [PhosLo] 667 mg PO TID 07/11/17 01/26/18 History amLODIPine [Norvasc] 10 mg PO DAILY 07/11/17 01/26/18 History cloNIDine HCL [Catapres] 0.1 mg PO TID #90 tab 07/13/17 01/26/18 Rx Apixaban [Eliquis] 5 mg PO BID 11/13/17 01/26/18 History Gabapentin [Neurontin] 100 mg PO TID 12/04/17 01/26/18 History Dorzolamide 2% [Trusopt 2%] 1 drops RIGHT EYE BID 01/26/18 01/26/18 History Latanoprost [Xalatan 0.005%] 1 drop RIGHT EYE HS 01/26/18 01/26/18 History Potassium Chloride [Klor-Con 20] 20 meq PO DAILY 01/26/18 01/26/18 History Timolol Maleate [Timolol Maleate 1 applic RIGHT EYE BID 01/26/18 01/26/18 History 0.5% Ophth Gel] hydrALAZINE HCL [Apresoline] 25 mg PO TID 01/26/18 01/26/18 History oxyCODONE-APAP 7.5-325MG [Percocet 1 tab PO Q6HR PRN 01/26/18 01/26/18 History 7.5-325 mg] Allergies Allergy/AdvReac Type Severity Reaction Status Date / Time No Known Allergies Allergy Verified 01/26/18 16:24 Surgical - Exam Vital Signs Temp Pulse Resp BP Pulse Ox 98.8 F 86 18 132/86 92 L 01/26/18 13:16 01/26/18 13:16 01/26/18 13:16 01/26/18 13:16 01/26/18 13:16 Physical exam: General: Well-developed, well-nourished HEENT: Normocephalic, sclerae nonicteric Abdomen: Nontender, mild abdominal distention secondary to ascites Extremities: Bilateral lower extremity edema Neuro: Alert and oriented Results - Labs 01/27/18 05:41 01/27/18 05:41 Abnormal Lab Results - Last 24 Hours (Table) 01/26/18 01/26/18 01/26/18 Range/Units 15:15 15:15 15:15 RBC (4.30-5.90) m/uL Hgb 11.4 L (13.0-17.5) gm/dL Hct 38.4 L (39.0-53.0) % MCHC 29.7 L (31.0-37.0) g/dL RDW 19.9 H (11.5-15.5) % Lymphocytes # 0.5 L (1.0-4.8) k/uL INR 1.2 H (<1.2) APTT 31.6 H (22.0-30.0) sec Sodium 133 L (137-145) mmol/L Potassium 6.1 H (3.5-5.1) mmol/L Chloride 90 L (98-107) mmol/L Carbon Dioxide 18 L (22-30) mmol/L BUN 115 H* (9-20) mg/dL Creatinine 15.70 H* (0.66-1.25) mg/dL Glucose (74-99) mg/dL POC Glucose (mg/dL) (75-99) mg/dL Calcium 6.8 L (8.4-10.2) mg/dL Alkaline Phosphatase 292 H (38-126) U/L Albumin 3.4 L (3.5-5.0) g/dL Lipase <10 L (23-300) U/L 01/26/18 01/26/18 01/26/18 Range/Units 16:56 17:23 17:51 RBC (4.30-5.90) m/uL Hgb (13.0-17.5) gm/dL Hct (39.0-53.0) % MCHC (31.0-37.0) g/dL RDW (11.5-15.5) % Lymphocytes # (1.0-4.8) k/uL INR (<1.2) APTT (22.0-30.0) sec Sodium (137-145) mmol/L Potassium (3.5-5.1) mmol/L Chloride (98-107) mmol/L Carbon Dioxide (22-30) mmol/L BUN (9-20) mg/dL Creatinine (0.66-1.25) mg/dL Glucose (74-99) mg/dL POC Glucose (mg/dL) 55 L 53 L 40 L (75-99) mg/dL Calcium (8.4-10.2) mg/dL Alkaline Phosphatase (38-126) U/L Albumin (3.5-5.0) g/dL Lipase (23-300) U/L 01/26/18 01/27/18 01/27/18 Range/Units 18:19 05:41 05:41 RBC 4.02 L (4.30-5.90) m/uL Hgb 10.4 L (13.0-17.5) gm/dL Hct 35.8 L (39.0-53.0) % MCHC 29.0 L (31.0-37.0) g/dL RDW 20.1 H (11.5-15.5) % Lymphocytes # 0.7 L (1.0-4.8) k/uL INR (<1.2) APTT (22.0-30.0) sec Sodium 135 L (137-145) mmol/L Potassium 5.8 H (3.5-5.1) mmol/L Chloride 91 L (98-107) mmol/L Carbon Dioxide 19 L (22-30) mmol/L BUN 119 H* (9-20) mg/dL Creatinine 16.83 H* (0.66-1.25) mg/dL Glucose 105 H 108 H (74-99) mg/dL POC Glucose (mg/dL) (75-99) mg/dL Calcium 6.7 L (8.4-10.2) mg/dL Alkaline Phosphatase (38-126) U/L Albumin (3.5-5.0) g/dL Lipase (23-300) U/L 01/27/18 Range/Units 05:51 RBC (4.30-5.90) m/uL Hgb (13.0-17.5) gm/dL Hct (39.0-53.0) % MCHC (31.0-37.0) g/dL RDW (11.5-15.5) % Lymphocytes # (1.0-4.8) k/uL INR (<1.2) APTT (22.0-30.0) sec Sodium (137-145) mmol/L Potassium (3.5-5.1) mmol/L Chloride (98-107) mmol/L Carbon Dioxide (22-30) mmol/L BUN (9-20) mg/dL Creatinine (0.66-1.25) mg/dL Glucose (74-99) mg/dL POC Glucose (mg/dL) 112 H (75-99) mg/dL Calcium (8.4-10.2) mg/dL Alkaline Phosphatase (38-126) U/L Albumin (3.5-5.0) g/dL Lipase (23-300) U/L Diabetes panel 01/26/18 01/26/18 01/27/18 Range/Units 15:15 18:19 05:41 Sodium 133 L 135 L (137-145) mmol/L Potassium 6.1 H 5.8 H (3.5-5.1) mmol/L Chloride 90 L 91 L (98-107) mmol/L Carbon Dioxide 18 L 19 L (22-30) mmol/L BUN 115 H* 119 H* (9-20) mg/dL Creatinine 15.70 H* 16.83 H* (0.66-1.25) mg/dL Glucose 78 105 H 108 H (74-99) mg/dL Calcium 6.8 L 6.7 L (8.4-10.2) mg/dL AST 26 (17-59) U/L ALT 26 (21-72) U/L Alkaline Phosphatase 292 H (38-126) U/L Total Protein 6.8 (6.3-8.2) g/dL Albumin 3.4 L (3.5-5.0) g/dL Calcium panel 01/26/18 01/27/18 Range/Units 15:15 05:41 Calcium 6.8 L 6.7 L (8.4-10.2) mg/dL Albumin 3.4 L (3.5-5.0) g/dL Pituitary panel 01/26/18 01/26/18 01/27/18 Range/Units 15:15 18:19 05:41 Sodium 133 L 135 L (137-145) mmol/L Potassium 6.1 H 5.8 H (3.5-5.1) mmol/L Chloride 90 L 91 L (98-107) mmol/L Carbon Dioxide 18 L 19 L (22-30) mmol/L BUN 115 H* 119 H* (9-20) mg/dL Creatinine 15.70 H* 16.83 H* (0.66-1.25) mg/dL Glucose 78 105 H 108 H (74-99) mg/dL Calcium 6.8 L 6.7 L (8.4-10.2) mg/dL Adrenal panel 01/26/18 01/26/18 01/27/18 Range/Units 15:15 18:19 05:41 Sodium 133 L 135 L (137-145) mmol/L Potassium 6.1 H 5.8 H (3.5-5.1) mmol/L Chloride 90 L 91 L (98-107) mmol/L Carbon Dioxide 18 L 19 L (22-30) mmol/L BUN 115 H* 119 H* (9-20) mg/dL Creatinine 15.70 H* 16.83 H* (0.66-1.25) mg/dL Glucose 78 105 H 108 H (74-99) mg/dL Calcium 6.8 L 6.7 L (8.4-10.2) mg/dL Total Bilirubin 1.1 (0.2-1.3) mg/dL AST 26 (17-59) U/L ALT 26 (21-72) U/L Alkaline Phosphatase 292 H (38-126) U/L Total Protein 6.8 (6.3-8.2) g/dL Albumin 3.4 L (3.5-5.0) g/dL Assessment and Plan (1) Ascites Narrative/Plan: Patient denies abdominal pain currently. Transient abdominal pain may be on the basis of ascites. Etiology for ascites other than renal failure has not been identified consider GI evaluation. No surgical intervention planned. No indications currently for therapeutic paracentesis. Will sign off at this point. Please contact if needed. Current Visit: Yes Status: Acute Code(s): R18.8 - OTHER ASCITES SNOMED Code(s): 613511583
--- NOTE | 2018-01-27 15:46 | PN ---
PROGRESS NOTE DATE OF SERVICE: 01/27/2018. PRESENTING COMPLAINT: Fluid overload. INTERVAL HISTORY: Patient presented with severe fluid overload, has not been too compliant with hemodialysis. Did tolerate some liquids once more food. No further nausea or vomiting. REVIEW OF SYSTEMS: Done for constitutional, cardiovascular, GI, pulmonary; relevant findings as above. CURRENT MEDICATIONS: Reviewed. PHYSICAL EXAMINATION: Temperature 96.7, pulse 80, respiratory 18, blood pressure 87/65 pulse ox 94% on room air. GENERAL APPEARANCE: Lying in bed, not in distress eyes. Pupil conjunctiva slightly injections in the right neck JVD unable to assess. Mass not palpable. Respiratory effort increased. Lungs decreased breath sounds cardiovascular. CARDIOVASCULAR: Heart sounds muffled edema present abdomen distended, soft. Liver and spleen not palpable. PSYCHIATRY: Alert and oriented x3. Mood and affect normal. MUSCULOSKELETAL: Induration of both the thigh inside. INVESTIGATIONS: White count 6.3, hemoglobin 10.4, potassium 5.8.BUN 109, creatinine 6.83. ASSESSMENT: Acute severe fluid overload from incomplete on noncompliant hemodialysis. 1. Large ascites from incomplete hemodialysis. 2. End-stage kidney disease on hemodialysis. 3. Hyperkalemia due to renal failure. 4. Metabolic acidosis from renal failure. 5. Hypoalbuminemia from kidney disease. 6. Diabetes mellitus type 2 uncontrolled with hypoglycemia. 7. Induration of both the thighs on the medial aspect dependent portion. This well could be from fluid. Also need to rule out calciphylaxis. 8. Autonomic dysfunction causing chronic gastroparesis from underlying diabetes and also diabetic retinopathy with poor vision. 9. Anemia secondary to chronic kidney disease. 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 PLAN: Care was discussed with Dr. Ho. He will look at patient's record to see if the patient may have calciphylaxis. Aggressive fluid removal will be done during hemodialysis. Patient is definitely slow to respond. Has been noncompliant as an outpatient again per Dr. Ho. MMODL / IJN: [id number] /
[2018-01-27 16:20] LABS: Glucose,Whole Blood 110 mg/dL (75-99)
[2018-01-27] MEDS ORDERED: ALTEPLASE 2 MG VIAL (CATHFLO) IV STA ×2 (19:58)
[2018-01-27] MEDS: LATANOPROST 0.005% OPHTH DROPS 2.5 ML BTL RIGHT EYE SCH (21:01)
[2018-01-27 21:16] LABS: Glucose,Whole Blood 85 mg/dL (75-99)
[2018-01-27 21:49] LABS: Hemoglobin A1C 6.2 % (4.0-6.0)
[2018-01-28] MEDS: MORPHINE SULFATE 4 MG/ML SYRINGE IV PRN ×3 (01:18→11:18)
[2018-01-28 07:24] LABS: Glucose,Whole Blood 107 mg/dL (75-99)
[2018-01-28] MEDS: INSULIN ASPART 100 UNIT/ML 1 ML 10 ML VIAL SQ SCH ×3 (08:50→17:10)
[2018-01-28] MEDS: CALCIUM ACETATE 667 MG CAP PO SCH ×3 (08:51→16:12)
[2018-01-28] MEDS: APIXABAN 5 MG TAB PO SCH ×2 (08:52→21:44)
[2018-01-28] MEDS: cloNIDine HCL 0.1 MG TAB PO SCH ×3 (08:52→21:43)
[2018-01-28] MEDS: BRIMONIDINE TARTRATE 0.2% DROPS 5 ML BTL RIGHT EYE SCH ×2 (08:52→21:46)
[2018-01-28] MEDS: amLODIPine 10 MG TAB PO SCH (08:52)
[2018-01-28] MEDS: GABAPENTIN 100 MG CAP PO SCH ×3 (08:52→21:43)
[2018-01-28] MEDS: DORZOLAMIDE HCL 2% DROPS 10 ML BTL RIGHT EYE SCH ×2 (08:52→21:46)
[2018-01-28] MEDS: PANTOPRAZOLE 40 MG/10 ML VIAL IV SCH (08:53)
[2018-01-28] MEDS: hydrALAZINE HCL 25 MG TAB PO SCH ×3 (08:53→21:44)
[2018-01-28] MEDS: METOPROLOL TARTRATE 50 MG TAB PO SCH ×2 (08:53→21:43)
[2018-01-28] MEDS: TIMOLOL 0.5% OPHTH DROPS 5 ML BTL RIGHT EYE SCH ×2 (08:55→21:46)
--- NOTE | 2018-01-28 11:52 | P.PN ---
Subjective Patient is seen in follow-up for end-stage renal disease. He is maintained on hemodialysis on a Saturday schedule. He has a permacath in place. Admits to generalized pain. He had episode of emesis this morning. Denies chest pain or shortness of breath. Vital signs are stable. General: The patient appeared well nourished and normally developed. HEENT: Head exam is unremarkable. Neck is without jugular venous distension. LUNGS: Lungs are clear to auscultation and percussion. Breath sounds decreased. HEART: Rate and Rhythm are regular. First and second heart sounds normal. No murmurs, rubs or gallops. ABDOMEN: Bowel sounds present. Moderate distention noted. EXTREMITITES: No clubbing, cyanosis, or edema. Skin appears thickened about the lower extremity. Objective - Vital Signs Vital signs: Vital Signs Temp 98.1 F 01/28/18 06:16 Pulse 84 01/28/18 06:16 Resp 17 01/28/18 06:16 BP 100/56 01/28/18 06:16 Pulse Ox 93 L 01/28/18 06:16 Intake & Output 01/27/18 01/28/18 01/28/18 18:59 06:59 18:59 Intake Total 236 Output Total 0 Balance 236 Intake: Oral 236 Output: Urine 0 Other: Voiding Method Toilet Toilet # Voids 0 - Labs CBC & Chem 7: 01/27/18 05:41 01/27/18 05:41 Labs: Abnormal Lab Results - Last 24 Hours (Table) 01/27/18 01/27/18 01/28/18 Range/Units 05:41 16:16 07:22 POC Glucose (mg/dL) 110 H 107 H (75-99) mg/dL Hemoglobin A1c 6.2 H (4.0-6.0) % Phosphorus (2.5-4.5) mg/dL 01/28/18 Range/Units 08:37 POC Glucose (mg/dL) (75-99) mg/dL Hemoglobin A1c (4.0-6.0) % Phosphorus 11.7 H* (2.5-4.5) mg/dL Assessment and Plan Plan: Assessment: 1. End-stage renal disease maintained on hemodialysis on a Saturday schedule via right chest permacath. 2. History of noncompliance with medications and hemodialysis treatments. 3. Hyperkalemia secondary to chronic kidney disease. 4. Insulin-dependent diabetes mellitus. 5. Metabolic acidosis secondary to chronic kidney disease. 6. Chronic kidney disease mineral bone disease maintained on PhosLo. Phosphorus significantly above goal at 11.7 which is related to his noncompliance with medications. 7. Anemia of chronic kidney disease. Hemoglobin at goal. 8. Ascites status post 3 paracentesis in the past. Patient states last paracentesis was last month and had about 12 L removed. Ultrasound this admission revealed presence of ascites again. Plan: Hemodialysis tomorrow with goal 3-4 L ultrafiltration. Hold antihypertensives for systolic blood pressure less than 120. Patient's PTH has been relatively well controlled as an outpatient. However his phosphorus is significantly elevated which is again related to his noncompliance with binders. The thickening of the skin appears quite symmetrical throughout both the lower extremities. No eschar is noted. Doubt calciphylaxis at this time. May need to consider a punch biopsy. Potential paracentesis today. I will give him 25 g of albumin prior to the procedure. I will add Renvela with meals as well. Discontinue morphine due to the buildup of metabolites in ESRD. Dilaudid may be used.
[2018-01-28 12:01] LABS: Hepatitis B Surface AB- Quant 173.1 mIU/mL
[2018-01-28 12:32] LABS: Glucose,Whole Blood 47 mg/dL (75-99)
[2018-01-28] MEDS ORDERED: DEXTROSE 50%-WATER 50 ML SYRINGE IVP ONE (12:34)
[2018-01-28] MEDS: SEVELAMER 800 MG TAB PO SCH ×2 (12:58→16:12)
[2018-01-28 12:59] LABS: Glucose,Whole Blood 73 mg/dL (75-99)
[2018-01-28 13:48] LABS: Glucose,Whole Blood 173 mg/dL (75-99)
[2018-01-28] MEDS ORDERED: ALBUMIN HUMAN 25% 100 ML in EMPTY BAG 1 BAG IVPB ONE (14:00)
[2018-01-28] MEDS: ALBUMIN HUMAN 25% 50 ML in EMPTY BAG 1 BAG IVPB SCH (15:30)
[2018-01-28] MEDS: HYDROmorphone 1 MG/ML 1 ML SYRINGE IVP PRN ×2 (16:04→21:53)
[2018-01-28 17:07] LABS: Glucose,Whole Blood 120 mg/dL (75-99)
[2018-01-28 20:46] LABS: Glucose,Whole Blood 106 mg/dL (75-99)
[2018-01-28] MEDS: LATANOPROST 0.005% OPHTH DROPS 2.5 ML BTL RIGHT EYE SCH (21:46)
[2018-01-29] MEDS: cloNIDine HCL 0.1 MG TAB PO SCH ×3 (00:01→20:12)
[2018-01-29] MEDS: HYDROmorphone 1 MG/ML 1 ML SYRINGE IVP PRN ×4 (02:36→16:36)
--- NOTE | 2018-01-29 04:20 | PN ---
PROGRESS NOTE DATE OF SERVICE: 01/28/2018 PRESENTING COMPLAINT: Fluid overload. INTERVAL HISTORY: The patient presented with severe fluid overload, abdominal distention. It is felt that the patient's tenderness in inside of the thighs, likely from chronic edema as opposed to calciphylaxis. The patient's phosphorus come back high. The patient did throw up x2 this morning. Sugars did go down to the 40s. The patient had 3-4 L of fluid removed yesterday. The patient's breathing is better. REVIEW OF SYSTEMS: Done for constitutional, cardiovascular, GI, pulmonary; relevant findings as above. CURRENT MEDICATIONS: Reviewed that include: 1. Eliquis. 2. Norvasc 10 mg a day. 3. Catapres 0.1 mg 3 times a day. 4. Hydralazine 25 mg 3 times a day. 5. Lopressor 100 mg b.i.d. 6. Renvela. PHYSICAL EXAMINATION: VITAL SIGNS: Temperature 98.1, pulse 98, respiration 18, blood pressure 100 x 56, pulse ox 94% on room air. GENERAL APPEARANCE: Lying in bed, not in distress. EYES: Pupils equal. Conjunctiva injected on the right side. NECK JVD unable to assess. Mass not palpable. RESPIRATORY: Effort increased. LUNGS: Decreased breath sounds. CARDIOVASCULAR: Heart sounds muffled. Edema present. ABDOMEN: Distended, soft. Liver and spleen not palpable, but abdomen is actually less distended, more soft today. PSYCHIATRY: Alert and and oriented times three. Mood and affect normal. INVESTIGATIONS: Accu-Cheks 47, 73, phosphorus 11.7. ASSESSMENT: 1. Acute severe fluid overload from incomplete and noncompliant hemodialysis. 2. Ascites from incomplete hemodialysis. Patient abdomen is actually much softer. Breathing is not compromise and probably do away with paracentesis. 3. End-stage kidney disease on hemodialysis on Saturday, Saturday and Saturday. 4. Hyperkalemia due to renal failure. 5. Metabolic acidosis from renal failure. 6. Hypoalbuminemia from kidney disease. 7. Diabetes mellitus type 2 uncontrolled with hypoglycemia. 8. Induration of both the thighs, mostly felt to be from fluid, calciphylaxis, felt to be less likely. 9. Autonomic dysfunction causing chronic gastroparesis from underlying diabetes and diabetic retinopathy with poor vision. 10.Anemia secondary to chronic kidney disease. 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 12.Hypotension. PLAN: At this point, we will discontinue patient's Norvasc, decrease the Catapres to 1 mg twice a day. The patient already put on Renvela. We will also stop patient's scheduled NovoLog at this point as sugars are trending low. Care was discussed with the patient and the father at the bedside. The patient is due to get dialyzed tomorrow. Overall prognosis is guarded. I did talk earlier with Dr. Ho from Nephrology. MMJML / IJN: [id number] /
[2018-01-29 07:23] LABS: Glucose,Whole Blood 110 mg/dL (75-99)
[2018-01-29] MEDS: METOPROLOL TARTRATE 50 MG TAB PO SCH ×2 (07:52→20:22)
[2018-01-29] MEDS: hydrALAZINE HCL 25 MG TAB PO SCH ×3 (07:52→23:44)
[2018-01-29] MEDS: GABAPENTIN 100 MG CAP PO SCH ×3 (07:52→20:15)
[2018-01-29] MEDS: PANTOPRAZOLE 40 MG/10 ML VIAL IV SCH (07:52)
[2018-01-29] MEDS: CALCIUM ACETATE 667 MG CAP PO SCH ×3 (07:54→17:51)
[2018-01-29] MEDS: BRIMONIDINE TARTRATE 0.2% DROPS 5 ML BTL RIGHT EYE SCH ×2 (07:55→20:20)
[2018-01-29] MEDS: APIXABAN 5 MG TAB PO SCH (07:55)
[2018-01-29] MEDS: SEVELAMER 800 MG TAB PO SCH ×3 (07:55→17:51)
[2018-01-29] MEDS: DORZOLAMIDE HCL 2% DROPS 10 ML BTL RIGHT EYE SCH ×2 (07:55→20:21)
[2018-01-29] MEDS: TIMOLOL 0.5% OPHTH DROPS 5 ML BTL RIGHT EYE SCH ×2 (07:56→20:23)
[2018-01-29 08:41] LABS: Potassium 6.1 mmol/L (3.5-5.1)
[2018-01-29 09:04] LABS: Calcium 6.4 mg/dL (8.4-10.2)
[2018-01-29] MEDS ORDERED: CALCIUM CHLORIDE 1,000 MG in SODIUM CHLORIDE 0.9% 100 ML IVPB STA (10:06)
[2018-01-29 12:32] LABS: Glucose,Whole Blood 89 mg/dL (75-99)
--- NOTE | 2018-01-29 13:17 | P.PN ---
Subjective Patient is seen in follow-up for end-stage renal disease. He is maintained on hemodialysis on a Saturday schedule. He has a permacath in place. Currently seeing undergoing hemodialysis. Admits to generalized pain. Continues to have episodes of emesis. Denies chest pain or shortness of breath. Vital signs are stable. General: The patient appeared well nourished and normally developed. HEENT: Head exam is unremarkable. Neck is without jugular venous distension. LUNGS: Lungs are clear to auscultation and percussion. Breath sounds decreased. HEART: Rate and Rhythm are regular. First and second heart sounds normal. No murmurs, rubs or gallops. ABDOMEN: Bowel sounds present. Moderate distention noted. EXTREMITITES: No clubbing, cyanosis, or edema. Skin appears thickened throughout the lower extremity. Objective - Vital Signs Vital signs: Vital Signs Temp 97.1 F L 01/29/18 06:19 Pulse 81 01/29/18 06:19 Resp 17 01/29/18 06:19 BP 107/64 01/29/18 06:19 Pulse Ox 93 L 01/29/18 06:19 Intake & Output 01/28/18 01/29/18 01/29/18 18:59 06:59 18:59 Output Total 2 Balance -2 Output: Oral Regurgitation 2 Other: Voiding Method Toilet # Voids 0 0 - Labs CBC & Chem 7: 01/27/18 05:41 01/29/18 07:53 Labs: Abnormal Lab Results - Last 24 Hours (Table) 01/28/18 01/28/18 01/28/18 Range/Units 13:28 17:01 20:44 Potassium (3.5-5.1) mmol/L Chloride (98-107) mmol/L Carbon Dioxide (22-30) mmol/L BUN (9-20) mg/dL Creatinine (0.66-1.25) mg/dL Glucose (74-99) mg/dL POC Glucose (mg/dL) 173 H 120 H 106 H (75-99) mg/dL Calcium (8.4-10.2) mg/dL 01/29/18 01/29/18 Range/Units 07:21 07:53 Potassium 6.1 H (3.5-5.1) mmol/L Chloride 93 L (98-107) mmol/L Carbon Dioxide 21 L (22-30) mmol/L BUN 104 H* (9-20) mg/dL Creatinine 14.65 H* (0.66-1.25) mg/dL Glucose 100 H (74-99) mg/dL POC Glucose (mg/dL) 110 H (75-99) mg/dL Calcium 6.4 L* (8.4-10.2) mg/dL Assessment and Plan Plan: Assessment: 1. End-stage renal disease maintained on hemodialysis on a Saturday schedule via right chest permacath. 2. History of noncompliance with medications and hemodialysis treatments. 3. Hyperkalemia secondary to chronic kidney disease. 4. Insulin-dependent diabetes mellitus. 5. Metabolic acidosis secondary to chronic kidney disease. 6. Chronic kidney disease mineral bone disease maintained on PhosLo and Renvela. Phosphorus significantly above goal at 11.7 which is related to his noncompliance with medications. 7. Anemia of chronic kidney disease. Hemoglobin at goal. 8. Ascites status post 3 paracentesis in the past. Patient states last paracentesis was last month and had about 12 L removed. Ultrasound this admission revealed presence of ascites again. Plan: Currently undergoing hemodialysis. Next treatment on Saturday. Hold antihypertensives for systolic blood pressure less than 120. Patient's PTH has been relatively well controlled as an outpatient. However his phosphorus is significantly elevated which is again related to his noncompliance with binders. The thickening of the skin appears quite symmetrical throughout both the lower extremities. No eschar is noted. Doubt calciphylaxis at this time. May need to consider a punch biopsy. Potential paracentesis today. I will give him 25 g of albumin prior to the procedure. Discontinued morphine due to the buildup of metabolites in ESRD. Dilaudid may be used. Strongly advised the patient to be compliant with this medications and hemodialysis treatments as outpatient.
[2018-01-29] MEDS: oxyCODONE-APAP 7.5-325MG 1 EACH TAB PO PRN ×2 (13:34→19:54)
[2018-01-29 17:12] LABS: Glucose,Whole Blood 142 mg/dL (75-99)
[2018-01-29] MEDS: METOCLOPRAMIDE 10 MG TAB PO SCH (17:51)
--- NOTE | 2018-01-29 17:51 | PN ---
PROGRESS NOTE DATE OF SERVICE: 01/29/2018 PRESENTING COMPLAINT: Fluid overload. INTERVAL HISTORY: The patient presented with severe fluid overload, abdominal distention, has been having intermittent vomiting, due to get dialyzed again today. Did vomit x2 this morning. Scheduled insulin was discontinued. REVIEW OF SYSTEMS: Done for constitutional, cardiovascular, GI, pulmonary; relevant findings as above. CURRENT MEDICATIONS: Reviewed. Eliquis is held for the paracentesis. EXAMINATION: Temperature 97.1, pulse 81, respirations 17, blood pressure 107/64, pulse ox 93% on room air. GENERAL APPEARANCE: Lying in bed, awake. EYES: Pupils equal. Conjunctivae normal. HEENT: External appearance of nose and ears normal. Oral cavity normal. NECK: JVD not raised. Mass not palpable. RESPIRATORY: Effort normal. LUNGS: Decreased breath sounds. CARDIOVASCULAR: Heart sounds muffled. Edema present. ABDOMEN: Distended, soft. Liver and spleen not palpable. Less distention. PSYCHIATRY: Alert and oriented x3. Mood and affect normal. INVESTIGATIONS: Potassium 6.1, BUN 104, creatinine 14.65. ASSESSMENT: 1. Acute severe fluid overload from incomplete and noncompliant hemodialysis, getting hemodialysis. 2. Ascites from incomplete dialysis. 3. Possible paracentesis. 4. End-stage kidney disease on hemodialysis Saturday, Saturday and Saturday. 5. Hyperkalemia due to renal failure. 6. Metabolic acidosis due to renal failure. 7. Hypoalbuminemia from kidney disease. 8. Diabetes mellitus type 2 uncontrolled with hypoglycemia. 9. Induration of both the thighs, mostly felt to be from fluid, calciphylaxis felt to be unlikely. 10.Autonomic dysfunction causing chronic gastroparesis from underlying diabetes and diabetic retinopathy with poor vision. 11.Vomiting, probably related to IV pain medications. 12.Anemia secondary to chronic kidney disease. 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 PLAN: At this point, we will stop the IV pain medications. The patient will have a paracentesis carried out. Eliquis already been on hold. Hemodialysis to continue. Care was discussed with the patient and father at the bedside. The patient is having some headaches. Will use ice packs. Scheduled Reglan is being added. MMODL / IJN: [id number] /
[2018-01-29] MEDS: LATANOPROST 0.005% OPHTH DROPS 2.5 ML BTL RIGHT EYE SCH (20:22)
[2018-01-29 21:50] LABS: Glucose,Whole Blood 114 mg/dL (75-99)
[2018-01-30] MEDS: oxyCODONE-APAP 7.5-325MG 1 EACH TAB PO PRN ×4 (03:09→21:59)
[2018-01-30 07:06] LABS: Glucose,Whole Blood 118 mg/dL (75-99)
[2018-01-30] MEDS: METOCLOPRAMIDE 10 MG TAB PO SCH ×3 (07:54→17:06)
[2018-01-30] MEDS: SEVELAMER 800 MG TAB PO SCH ×3 (07:54→17:06)
[2018-01-30] MEDS: BRIMONIDINE TARTRATE 0.2% DROPS 5 ML BTL RIGHT EYE SCH ×2 (07:54→21:03)
[2018-01-30] MEDS: DORZOLAMIDE HCL 2% DROPS 10 ML BTL RIGHT EYE SCH ×2 (07:54→21:03)
[2018-01-30] MEDS: GABAPENTIN 100 MG CAP PO SCH ×3 (07:54→21:04)
[2018-01-30] MEDS: CALCIUM ACETATE 667 MG CAP PO SCH ×3 (07:54→17:06)
[2018-01-30] MEDS: hydrALAZINE HCL 25 MG TAB PO SCH ×2 (07:54→15:48)
[2018-01-30] MEDS: PANTOPRAZOLE 40 MG TABLET PO SCH (07:54)
[2018-01-30] MEDS: cloNIDine HCL 0.1 MG TAB PO SCH ×2 (07:54→21:06)
[2018-01-30] MEDS: METOPROLOL TARTRATE 50 MG TAB PO SCH ×2 (07:55→21:06)
[2018-01-30] MEDS: TIMOLOL 0.5% OPHTH DROPS 5 ML BTL RIGHT EYE SCH ×2 (07:56→21:03)
--- NOTE | 2018-01-30 09:30 | P.PN ---
Subjective Patient is seen in follow-up for end-stage renal disease. He is maintained on hemodialysis on a Saturday schedule. He has a permacath in place. Admits to generalized pain and is requesting pain medications. Tolerated breakfast this morning. No vomiting so far. Denies chest pain or shortness of breath. Vital signs are stable. General: The patient appeared well nourished and normally developed. HEENT: Head exam is unremarkable. Neck is without jugular venous distension. LUNGS: Lungs are clear to auscultation and percussion. Breath sounds decreased. HEART: Rate and Rhythm are regular. First and second heart sounds normal. No murmurs, rubs or gallops. ABDOMEN: Bowel sounds present. Moderate distention noted. EXTREMITITES: No clubbing, cyanosis, or edema. Skin appears thickened throughout the lower extremity. Objective - Vital Signs Vital signs: Vital Signs Temp 97.7 F 01/30/18 07:00 Pulse 94 01/30/18 07:00 Resp 20 01/30/18 07:00 BP 115/74 01/30/18 07:00 Pulse Ox 94 L 01/30/18 07:00 Intake & Output 01/29/18 01/30/18 01/30/18 18:59 06:59 18:59 Intake Total 2500 Output Total 2 Balance 2498 Intake: Oral 2500 Output: Urine 0 Stool 2 Other: Voiding Method Toilet # Voids 0 0 # Bowel Movements 0 - Labs CBC & Chem 7: 01/27/18 05:41 01/29/18 07:53 Labs: Abnormal Lab Results - Last 24 Hours (Table) 01/29/18 01/29/18 01/30/18 Range/Units 17:05 21:41 06:46 POC Glucose (mg/dL) 142 H 114 H 118 H (75-99) mg/dL Assessment and Plan Plan: Assessment: 1. End-stage renal disease maintained on hemodialysis on a Saturday schedule via right chest permacath. 2. History of noncompliance with medications and hemodialysis treatments. 3. Hyperkalemia secondary to chronic kidney disease. 4. Insulin-dependent diabetes mellitus. 5. Metabolic acidosis secondary to chronic kidney disease. 6. Chronic kidney disease mineral bone disease maintained on PhosLo and Renvela. Phosphorus significantly above goal at 11.7 which is related to his noncompliance with medications. 7. Anemia of chronic kidney disease. Hemoglobin at goal. 8. Ascites status post 3 paracentesis in the past. Patient states last paracentesis was last month and had about 12 L removed. Ultrasound this admission revealed presence of ascites again. Plan: Hemodialysis tomorrow. Hold antihypertensives for systolic blood pressure less than 120. Patient's PTH has been relatively well controlled as an outpatient. However his phosphorus is significantly elevated which is again related to his noncompliance with binders. The thickening of the skin appears quite symmetrical throughout both the lower extremities. No eschar is noted. Doubt calciphylaxis at this time. May need to consider a punch biopsy. Paracentesis tomorrow. I will give him 25 g of albumin prior to the procedure. Discontinued morphine due to the buildup of metabolites in ESRD. Dilaudid may be used. Strongly advised the patient to be compliant with this medications and hemodialysis treatments as outpatient.
[2018-01-30 12:33] LABS: Glucose,Whole Blood 137 mg/dL (75-99)
--- NOTE | 2018-01-30 16:28 | P.CONS ---
History of Present Illness - Reason for Consult Consult date: 01/30/18 - Chief Complaint Bilateral legs pain - History of Present Illness This is a 27-year-old gentleman with history of end-stage renal disease due to insulin-dependent diabetes. The patient is getting hemodialysis and he is hypokalemic. One week ago he started feeling increasing pain in both thighs anteriorly. This pain is constant however it gets worse with any movement or any activities. The patient denies any numbness or tingling in the lower extremities. He denies any pain in other areas of his body. The patient used to be on Percocet 7.5 mg 1-2 pills a day for his stomach pain as he states. The patient has ascites that is scheduled to be drained during his admission. By physical exam he is alert oriented 3 in no apparent distress He has decreased but symmetrical muscle strength in the lower extremities to 4 out of 5 for hip flexion and knee flexion and extension. Normal ankle flexion and extension. 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 There is no interventional pain procedure that could help with this pain I thank you for the consultation Past Medical History Past Medical History: Asthma, Heart Failure, Diabetes Mellitus, GERD/Reflux, Hypertension, Osteoarthritis (OA), Renal Disease Additional Past Medical History / Comment(s): IDDM type I, GASTROPARESIS, gastritis, esophagitis,cyclic vomiting syndrome, DKA episodes, hiatal hernia, as child had seizure r/t high fever, pancreatits(idiopathic), chronic kidney disease stage III-hemodialysis //Saturday, L leg neuropathy, migraines. dialysis CHF History of Any Multi-Drug Resistant Organisms: MRSA Year Discovered:: MDRO Source:: CHIN/ Rt leg Past Surgical History: Cholecystectomy, Orthopedic Surgery, Tonsillectomy Additional Past Surgical History / Comment(s): R upper chest hemodialysis catheter, PICC line, LEFT ELBOW pinned, egd's w/ bx's last done 05-30-16.6-9-17 picc line removed Past Anesthesia/Blood Transfusion Reactions: No Reported Reaction Smoking Status: Current every day smoker - Past Family History Mother Family Medical History: Diabetes Mellitus Additional Family Medical History / Comment(s): heart problems-(pt not sure what they were) Father Family Medical History: Diabetes Mellitus Medications and Allergies Home Medications Medication Instructions Recorded Confirmed Type Metoprolol Tartrate [Lopressor] 100 mg PO BID #60 tab 07/16/15 01/26/18 Rx INSULIN LISPRO (HumaLOG) [humaLOG] 4 units SQ AC-TID 10/16/16 01/26/18 History Brimonidine Tartrate [Alphagan P 1 drop RIGHT EYE BID 07/11/17 01/26/18 History 0.2% Ophth Soln] Calcium Acetate [PhosLo] 667 mg PO TID 07/11/17 01/26/18 History amLODIPine [Norvasc] 10 mg PO DAILY 07/11/17 01/26/18 History cloNIDine HCL [Catapres] 0.1 mg PO TID #90 tab 07/13/17 01/26/18 Rx Apixaban [Eliquis] 5 mg PO BID 11/13/17 01/26/18 History Gabapentin [Neurontin] 100 mg PO TID 12/04/17 01/26/18 History Dorzolamide 2% [Trusopt 2%] 1 drops RIGHT EYE BID 01/26/18 01/26/18 History Latanoprost [Xalatan 0.005%] 1 drop RIGHT EYE HS 01/26/18 01/26/18 History Potassium Chloride [Klor-Con 20] 20 meq PO DAILY 01/26/18 01/26/18 History Timolol Maleate [Timolol Maleate 1 applic RIGHT EYE BID 01/26/18 01/26/18 History 0.5% Ophth Gel] hydrALAZINE HCL [Apresoline] 25 mg PO TID 01/26/18 01/26/18 History oxyCODONE-APAP 7.5-325MG [Percocet 1 tab PO Q6HR PRN 01/26/18 01/26/18 History 7.5-325 mg] Allergies Allergy/AdvReac Type Severity Reaction Status Date / Time No Known Allergies Allergy Verified 01/26/18 16:24 Physical Exam Vitals: Vital Signs Temp Pulse Resp BP BP Pulse Ox 01/30/18 15:00 98.3 F 88 18 132/82 99 01/30/18 07:00 97.7 F 94 20 115/74 94 L 01/29/18 23:40 99.5 F 98 20 135/84 01/29/18 20:15 105/71 Intake and Output 01/30/18 01/30/18 01/30/18 06:59 14:59 22:59 Intake Total 100 120 Output Total 1 Balance 99 120 Intake: Oral 100 120 Output: Urine 0 Stool 1 Other: Voiding Method Toilet # Voids 0 0 # Bowel Movements 0 0 Results CBC & Chem 7: 01/27/18 05:41 01/29/18 07:53 Labs: Abnormal Lab Results - Last 24 Hours (Table) 01/29/18 01/29/18 01/30/18 Range/Units 17:05 21:41 06:46 POC Glucose (mg/dL) 142 H 114 H 118 H (75-99) mg/dL 01/30/18 Range/Units 12:27 POC Glucose (mg/dL) 137 H (75-99) mg/dL
[2018-01-30] MEDS: HYDROmorphone 1 MG/ML 1 ML SYRINGE IVP PRN ×2 (17:07→23:08)
[2018-01-30 17:45] LABS: Glucose,Whole Blood 156 mg/dL (75-99)
--- NOTE | 2018-01-30 19:55 | PN ---
PROGRESS NOTE DATE OF SERVICE: 01/30/2018 PRESENTING COMPLAINT: Fluid overload. INTERVAL HISTORY: This patient presented with fluid overload, abdominal distention. I discontinued patient's IV Dilaudid yesterday. I felt the side effects were contributing to his nausea and vomiting. I spoke to the nurse this morning. The patient tolerated his breakfast, did not throw up anymore. Also patient was put on Reglan yesterday. When I walked into the room this morning, the patient was on the phone talking comfortably. REVIEW OF SYSTEMS: Done for constitutional, cardiovascular, GI, pulmonary. The patient tells me now again that he is having pain all over; legs, abdomen, all over. CURRENT MEDICATIONS: Reviewed. PHYSICAL EXAMINATION: Temperature 97.7, pulse 94, respiration 20, blood pressure 115/74, pulse ox 94% on room air. GENERAL APPEARANCE: Lying in bed, comfortable, talking on the phone when I walked in. EYES: Pupils equal. Conjunctivae normal. HEENT: External appearance of nose and ears normal. Oral cavity normal. NECK: JVD not raised. Mass not palpable. RESPIRATORY: Effort normal. LUNGS: Decreased breath sounds. CARDIOVASCULAR: First and second sounds normal. Edema present but decreased from before. ABDOMEN: Less distended. Soft. Liver and spleen not palpable. PSYCHIATRY: Alert and oriented x3. Mood and affect normal. INVESTIGATIONS: Accu-Cheks 114, 118, 137, 156. ASSESSMENT: 1. Acute severe fluid overload from incomplete and noncompliant hemodialysis, getting better. 2. Ascites from incomplete dialysis, pending paracentesis tomorrow. 3. End-stage kidney disease, on hemodialysis Saturday, Saturday and Saturday. 4. Hyperkalemia due to renal failure. 5. Metabolic acidosis due to renal failure. 6. Hypoalbuminemia from kidney disease. 7. Diabetes mellitus, type 2, uncontrolled with hypoglycemia. 8. Induration of both thighs, most likely felt to be from fluid. 9. Autonomic dysfunction causing chronic gastroparesis from underlying diabetes and diabetic retinopathy with poor vision. 10.Vomiting, greatly improved after patient's IV pain medication Dilaudid was discontinued. Also patient on Reglan. 11.Anemia secondary to chronic kidney disease. 12.Mineral bone disease secondary to kidney disease causing hyperphosphatemia. PLAN: I did explain to the patient that for this generalized pain, IV Dilaudid was not indicated, and that after stopping his IV Dilaudid, the patient was actually able to tolerate his breakfast. Patient at this point wants IV pain medications, so I am going to consult Pain Management Services. Patient is due for paracentesis tomorrow. Continue current medication and treatment plan. Will follow. The patient's blood pressure has still been on the lower side, so the antihypertensives were held. At this point we will also discontinue the hydralazine and keep the patient just on Catapres twice a day. MMODL / IJN: [id number] /
[2018-01-30] MEDS: LATANOPROST 0.005% OPHTH DROPS 2.5 ML BTL RIGHT EYE SCH (21:03)
[2018-01-30 21:45] LABS: Glucose,Whole Blood 117 mg/dL (75-99)
[2018-01-31] MEDS: HYDROmorphone 1 MG/ML 1 ML SYRINGE IVP PRN (05:06)
[2018-01-31 06:32] LABS: Mean Platelet Volume 8.2; Platelet Count 187 k/uL (150-450)
[2018-01-31 06:46] LABS: INR 1.2 (<1.2); Prothrombin Time 11.4 sec (9.0-12.0)
[2018-01-31 06:50] LABS: Calcium 6.9 mg/dL (8.4-10.2); Potassium 5.3 mmol/L (3.5-5.1)
[2018-01-31 07:10] LABS: Glucose,Whole Blood 117 mg/dL (75-99)
[2018-01-31] MEDS: CALCIUM ACETATE 667 MG CAP PO SCH ×3 (08:08→18:18)
[2018-01-31] MEDS: GABAPENTIN 100 MG CAP PO SCH ×2 (08:08→18:18)
[2018-01-31] MEDS: SEVELAMER 800 MG TAB PO SCH ×3 (08:08→18:18)
[2018-01-31] MEDS: PANTOPRAZOLE 40 MG TABLET PO SCH (08:08)
[2018-01-31] MEDS: METOPROLOL TARTRATE 50 MG TAB PO SCH (08:08)
[2018-01-31] MEDS: DORZOLAMIDE HCL 2% DROPS 10 ML BTL RIGHT EYE SCH (08:09)
[2018-01-31] MEDS: METOCLOPRAMIDE 10 MG TAB PO SCH ×3 (08:09→18:18)
[2018-01-31] MEDS: cloNIDine HCL 0.1 MG TAB PO SCH (08:09)
[2018-01-31] MEDS: TIMOLOL 0.5% OPHTH DROPS 5 ML BTL RIGHT EYE SCH (08:09)
[2018-01-31] MEDS: BRIMONIDINE TARTRATE 0.2% DROPS 5 ML BTL RIGHT EYE SCH (08:09)
[2018-01-31] MEDS: oxyCODONE-APAP 7.5-325MG 1 EACH TAB PO PRN ×2 (08:23→15:22)
[2018-01-31] MEDS: ALBUMIN HUMAN 25% 50 ML in EMPTY BAG 1 BAG IVPB SCH ×4 (08:35→12:16)
--- NOTE | 2018-01-31 11:29 | US ---
Therapeutic paracentesis. DATE OF EXAM: 01/31/2018 CLINICAL HISTORY: Ascites The procedure was discussed with the patient. The risks, complications, benefits, and alternatives we re discussed and any questions were answered. Informed consent was obtained. The patient was placed s upine on the ultrasound table and prepped and draped in the usual sterile fashion. All elements of maximal barrier technique were utilized. Under ultrasound guidance, access into the right lower quadrant was obtained, via the paracentesis catheter system and direct ultrasound guidanc e. Approximately 11.1 liters of straw-colored fluid was removed. The patient was stable throughout the p rocedure and remained stable upon discharge from Department of Radiology. IMPRESSION: Successful therapeutic paracentesis under ultrasound guidance.
[2018-01-31] MEDS: HYDROmorphone 4 MG TABLET PO PRN ×2 (11:48→18:18)
[2018-01-31 12:07] LABS: Glucose,Whole Blood 124 mg/dL (75-99)
[2018-01-31 13:50] VITALS: BMI 32.4
[2018-01-31 15:19] VITALS: BP 114/70; PULSE 84; RESP 18; TEMP 99
[2018-01-31 17:13] LABS: Glucose,Whole Blood 117 mg/dL (75-99)
--- NOTE | 2018-02-02 07:40 | DS ---
DISCHARGE SUMMARY DATE OF ADMISSION: 01/26/18 DATE OF DISCHARGE: 01/31/18 FINAL DIAGNOSES: 1. Acute severe fluid overload from incomplete and noncompliant hemodialysis. 2. Ascites from incomplete dialysis. 3. End-stage kidney disease on hemodialysis Saturday, Saturday and Saturday. 4. Hyperkalemia due to renal failure. 5. Metabolic acidosis due to renal failure. 6. Hypoalbuminemia from kidney disease. 7. Diabetes mellitus type 2 uncontrolled with hypoglycemia causing autonomic dysfunction causing element of gastroparesis and also causing peripheral neuropathy and diabetic retinopathy. 8. Anemia secondary to chronic kidney disease. 9. Mineral bone disease secondary to chronic kidney disease causing hyperphosphatemia. HOSPITAL COURSE: This patient according to Dr. Ho, often times cuts dialysis short, sometimes been noncompliant, presented with severe fluid overload including induration of the inside of his thigh felt to be from fluid overload. The patient did well with dialysis. The patient also had paracentesis carried out and about 11 L was removed. The patient is tolerating a diet. CONSULTATION: 1. Dr. Chavez from Pain Services. 2. Dr. Ho from Nephrology. 3. Dr. Guzman from General Surgery. Abdomen was felt to be benign. EXAMINATION: Poor vision. Pulse 84, respiration 18, blood pressure 114/70. ABDOMEN: Soft nontender. PSYCH: AO x3. DISCHARGE MEDICATIONS: 1. Lopressor 100 mg p.o. b.i.d. 2. Alphagan 0.2% 1 drop to right eye b.i.d. 3. PhosLo 667 mg p.o. t.i.d. 4. Eliquis 5 mg p.o. b.i.d. 5. Neurontin 100 mg p.o. t.i.d. 6. Trusopt 2% 1 drop to right eye b.i.d. 7. Xalatan 1 drop to right eye q.h.s. 8. Timolol 0.5% 1 application right eye b.i.d. 9. Percocet 7.5 one tablet q.6h p.r.n. 10.Renvela 800 mg p.o. t.i.d. 11.Catapres 0.1 mg p.o. b.i.d. 12.Discontinued Humalog, amlodipine, hydralazine, and potassium. The patient to keep his hemodialysis schedule and follow with Dr. Bailey on 02/02/18. Labs with next hemodialysis. MMODL / IJN: [id number] /
== END 2018-01-31 19:25 | disposition home or self-care (01) | DRG 640 ==
LOC: EC 13:14 → 6SEL 16:04 → 4MS4W 01-28 00:42
PROVIDERS: ADMIT Hospitalist; ATTEND Hospitalist
PROC: 5A1D70Z Performance of Urinary Filtration, Intermittent, Less than 6 Hours Per Day (ICD-10-PCS; principal; 2018-01-27)
DX: E87.70 Fluid overload, unspecified (principal); N18.6 End stage renal disease; I13.2 Hypertensive heart and chronic kidney disease with heart failure and with stage 5 chronic kidney disease, or end stage renal disease; R18.8 Other ascites; D63.1 Anemia in chronic kidney disease; E11.22 Type 2 diabetes mellitus with diabetic chronic kidney disease; E11.319 Type 2 diabetes mellitus with unspecified diabetic retinopathy without macular edema; E11.43 Type 2 diabetes mellitus with diabetic autonomic (poly)neuropathy; E11.65 Type 2 diabetes mellitus with hyperglycemia; E83.39 Other disorders of phosphorus metabolism; E87.2 Acidosis; E87.5 Hyperkalemia; E88.09 Other disorders of plasma-protein metabolism, not elsewhere classified; F17.200 Nicotine dependence, unspecified, uncomplicated; H54.7 Unspecified visual loss; I50.9 Heart failure, unspecified; K21.0 Gastro-esophageal reflux disease with esophagitis; K31.84 Gastroparesis; Z79.01 Long term (current) use of anticoagulants; Z79.4 Long term (current) use of insulin; Z79.899 Other long term (current) drug therapy; Z83.3 Family history of diabetes mellitus; Z91.19 Patient's noncompliance with other medical treatment and regimen; Z91.14 Patient's other noncompliance with medication regimen; Z99.2 Dependence on renal dialysis; Z91.15 Patient's noncompliance with renal dialysis; Z90.49 Acquired absence of other specified parts of digestive tract
CPT/HCPCS: 36415; 49083; 71046; 74019; 76705; 80048; 80053; 82150; 82947; 83036; 83690; 84100; 85025; 85049; 85610; 85730; 86706; 87340; 90935; 96374; 96375; 99285